=== PATIENT | female | born 1945 | race Two or more races ===

== ENCOUNTER → 2020-08-01 09:55 | Outpatient (BNVA) | payer MEDICARE, SELFPAY | PROVIDERS: PCP Internal Medicine; Referring Provider Internal Medicine; Visit Provider Hospitalist | DX: J98.11 Atelectasis (principal); J45.909 Unspecified asthma, uncomplicated; Z79.899 Other long term (current) drug therapy | CPT/HCPCS: 99214 ==

== ENCOUNTER → 2020-09-09 09:37 | Outpatient (BNVA) | payer MEDICARE, SELFPAY | PROVIDERS: PCP Internal Medicine; Visit Provider Surgery Vascular Surgery | DX: I83.12 Varicose veins of left lower extremity with inflammation (principal) | CPT/HCPCS: 99202 ==

== ENCOUNTER 2020-09-17 07:36 | Outpatient (REF) | payer MEDICARE, SELFPAY ==
--- NOTE | 2020-09-17 07:41 | US_ITS ---
EXAMINATION: BILATERAL LOWER EXTREMITY VENOUS ULTRASOUND (Reflux Exam) CLINICAL INDICATION: This is a 75-year-old female with venous insufficiency. Venous reflux. Varicose veins with inflammation. COMPARISON: None. TECHNIQUE: Color flow triplex imaging and compression Doppler was performed to evaluate both the deep and the superficial systems bilaterally. To evaluate the superficial system, the examination was performed in the upright position. Color-flow Doppler ultrasound and compression ultrasound were utilized. In addition, maneuvers were utilized to demonstrate reflux. FINDINGS: 1. DEEP VENOUS ULTRASOUND OF THE RIGHT LOWER EXTREMITY: Common Femoral Vein: Compressible, normal respiratory variation and augmented flow. Femoral vein: Compressible, normal color flow and augmentation. Popliteal Vein: Compressible, normal augmentation. Deep Reflux: There is no evidence of reflux in the deep system in either the common femoral vein or the popliteal vein. . There is no evidence of a Rosa's cyst. 2. SUPERFICIAL ULTRASOUND WITH DOPPLER OF RIGHT LOWER EXTREMITY GREAT SAPHENOUS VEIN: Saphenofemoral junction: 0.5 cm Mid thigh: 0.2 cm Above knee: 0.2 cm Below knee: 0.2 cm Mid calf: 0.2 cm Ankle: 0.2 cm GSV REFLUX: No evidence of reflux. DUPLICATED GREAT SAPHENOUS VEIN: None SMALL SAPHENOUS VEIN: Upper: 0.1 cm Lower: 0.2 cm SSV REFLUX: No evidence of reflux. VEIN OF GIACOMINI: None Imaged. 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 VARICOSITIES: None Imaged 3. DEEP VENOUS ULTRASOUND OF THE LEFT LOWER EXTREMITY: Common Femoral Vein: Compressible, normal respiratory variation and augmented flow. Femoral vein: Compressible, normal color flow and augmentation. Popliteal Vein: Compressible, normal augmentation. Deep Reflux: There is no evidence of reflux in the deep system in either the common femoral vein or the popliteal vein. There is no evidence of a Rosa's cyst. 4. SUPERFICIAL ULTRASOUND WITH DOPPLER OF LEFT LOWER EXTREMITY GREAT SAPHENOUS VEIN: Saphenofemoral junction: 0.6 cm Mid thigh: 0.2 cm Above knee: 0.2 cm Below knee: 0.1 cm Mid calf: 0.1 cm Ankle: 0.2 cm GSV REFLUX: No evidence of reflux. DUPLICATED GREAT SAPHENOUS VEIN: There is a duplicated lateral great saphenous vein which measures 0.3 cm at the saphenofemoral junction without reflux. SMALL SAPHENOUS VEIN: Upper: 0.2 cm Lower: 0.1 cm SSV REFLUX: No evidence of reflux. VEIN OF GIACOMINI: None Imaged. PERFORATORS: None Imaged VARICOSITIES: None Imaged US/US venous duplex LE BI IMPRESSION: 1. There are bilateral patent great saphenous veins and small saphenous veins, respectively without evidence of venous insufficiency.
== END 2020-09-17 07:37 | disposition home or self-care (01) ==
LOC: HO.US 07:36
PROVIDERS: Visit Provider Surgery Vascular Surgery
DX: I83.893 Varicose veins of bilateral lower extremities with other complications (principal); I83.12 Varicose veins of left lower extremity with inflammation
CPT/HCPCS: 93970

== ENCOUNTER → 2020-10-07 09:09 | Outpatient (BNVA) | payer MEDICARE, SELFPAY | PROVIDERS: PCP Internal Medicine; Referring Provider Internal Medicine; Visit Provider Surgery Vascular Surgery | DX: M79.605 Pain in left leg (principal); M79.604 Pain in right leg; M19.90 Unspecified osteoarthritis, unspecified site | CPT/HCPCS: 99212 ==

== ENCOUNTER → 2021-01-29 09:55 | Outpatient (BNVA) | payer MEDICARE, SELFPAY | PROVIDERS: PCP Internal Medicine; Visit Provider Hospitalist | DX: J45.30 Mild persistent asthma, uncomplicated (principal); J30.9 Allergic rhinitis, unspecified; J98.11 Atelectasis | CPT/HCPCS: 99212 ==

== ENCOUNTER → 2021-03-17 10:19 | Outpatient (BNVA) | payer MEDICARE, SELFPAY | PROVIDERS: PCP Internal Medicine; Visit Provider Surgery Vascular Surgery | DX: I73.9 Peripheral vascular disease, unspecified (principal) | CPT/HCPCS: 99212 ==

== ENCOUNTER 2021-03-30 09:48 | Outpatient (REF) | payer MEDICARE, SELFPAY ==
--- NOTE | ~2021-03-30 | US_ITS ---
EXAMINATION: COLOR-FLOW DUPLEX IMAGING OF THE BILATERAL LOWER EXTREMITY ARTERIAL SYSTEM. VELOCITY MEASUREMENTS THROUGHOUT THE FEMORAL ARTERIES WITH ANKLE-BRACHIAL PERIPHERAL ARTERIAL TESTING. Interventional Radiologist: Reji Lim M.D., F.S.I.R., F.A.C.R. CLINICAL INFORMATION: This is a 75-year-old female with bilateral peripheral vascular disease. RIGHT FEMORAL RUNOFF VELOCITIES: The right common femoral artery measures 198 cm/s and biphasic. The right profunda femoral artery is 167 cm/s and is biphasic. Right proximal superficial femoral artery measures 195 cm/s and biphasic. Mid superficial femoral artery is 254 cm/s and triphasic. Distal right superficial femoral artery measures 275 cm/s and is biphasic. Right popliteal velocity measures 97 cm/s and is abnormal. The posterior tibial artery velocity measures 125 cm/s and was monophasic. The right ankle-brachial index is 0.94. LEFT FEMORAL RUNOFF VELOCITIES: The left common femoral artery measures 178 cm/s and triphasic. The left profunda femoral artery is 113 cm/s and is biphasic. Left proximal superficial femoral artery measures 130 cm/s and biphasic. Mid superficial femoral artery is 301 cm/s and biphasic. Distal left superficial femoral artery measures 203 cm/s and is biphasic. Left popliteal velocity measures 111 cm/s and is triphasic. The posterior tibial artery velocity measures 109 cm/s and was biphasic. The left ankle-brachial index is 1.03. US/US MAYRA complete IMPRESSION: 1. There are elevated velocities in the mid and distal right superficial femoral artery with greater than 200 cm/s measured. This is suspicious for a hemodynamically significant stenosis. However, it appears to be compensated with a normal ankle-brachial index. 2. There are elevated velocities in the mid and distal left superficial femoral artery with greater than 200 cm/s measured. There is a 2-1 shift. This is suspicious for hemodynamically significant stenosis. However, it appears to be compensated with a normal ankle-brachial index.
--- NOTE | ~2021-03-30 | US_ITS ---
EXAMINATION: COLOR-FLOW DUPLEX IMAGING OF THE BILATERAL LOWER EXTREMITY ARTERIAL SYSTEM. VELOCITY MEASUREMENTS THROUGHOUT THE FEMORAL ARTERIES WITH ANKLE-BRACHIAL PERIPHERAL ARTERIAL TESTING. Interventional Radiologist: Reji Lim M.D., F.S.I.R., F.A.C.R. CLINICAL INFORMATION: This is a 75-year-old female with bilateral peripheral vascular disease. RIGHT FEMORAL RUNOFF VELOCITIES: The right common femoral artery measures 198 cm/s and biphasic. The right profunda femoral artery is 167 cm/s and is biphasic. Right proximal superficial femoral artery measures 195 cm/s and biphasic. Mid superficial femoral artery is 254 cm/s and triphasic. Distal right superficial femoral artery measures 275 cm/s and is biphasic. Right popliteal velocity measures 97 cm/s and is abnormal. The posterior tibial artery velocity measures 125 cm/s and was monophasic. The right ankle-brachial index is 0.94. LEFT FEMORAL RUNOFF VELOCITIES: The left common femoral artery measures 178 cm/s and triphasic. The left profunda femoral artery is 113 cm/s and is biphasic. Left proximal superficial femoral artery measures 130 cm/s and biphasic. Mid superficial femoral artery is 301 cm/s and biphasic. Distal left superficial femoral artery measures 203 cm/s and is biphasic. Left popliteal velocity measures 111 cm/s and is triphasic. The posterior tibial artery velocity measures 109 cm/s and was biphasic. The left ankle-brachial index is 1.03. US/US arterial duplex LE BI IMPRESSION: 1. There are elevated velocities in the mid and distal right superficial femoral artery with greater than 200 cm/s measured. This is suspicious for a hemodynamically significant stenosis. However, it appears to be compensated with a normal ankle-brachial index. 2. There are elevated velocities in the mid and distal left superficial femoral artery with greater than 200 cm/s measured. There is a 2-1 shift. This is suspicious for hemodynamically significant stenosis. However, it appears to be compensated with a normal ankle-brachial index.
== END 2021-03-30 09:49 | disposition home or self-care (01) ==
LOC: HO.US 09:48
PROVIDERS: PCP Internal Medicine; Visit Provider Surgery Vascular Surgery
DX: I70.213 Atherosclerosis of native arteries of extremities with intermittent claudication, bilateral legs (principal)
CPT/HCPCS: 93923; 93925

== ENCOUNTER → 2021-04-07 10:14 | Outpatient (BNVA) | payer MEDICARE, SELFPAY | PROVIDERS: PCP Internal Medicine; Visit Provider Surgery Vascular Surgery | DX: M79.604 Pain in right leg (principal); M79.605 Pain in left leg | CPT/HCPCS: 99212 ==

== ENCOUNTER 2021-04-15 13:36 | Emergency (ER) | payer MEDICARE, SELFPAY ==
--- NOTE | ~2021-04-15 | XR_ITS ---
EXAMINATION: LEFT SHOULDER, RIGHT RIBS AND LEFT HUMERUS. CLINICAL INFORMATION: Fall. Pain. COMPARISON: None TECHNIQUE: Left shoulder 3 views. Left humerus 2 views. Right RIBS 3 views. FINDINGS: Left shoulder: There is loss of glenohumeral joint space with moderate periarticular spurring. No loose bodies or bony erosive changes seen. The left AC joint is normal. Left humerus: There is no visible acute fracture, dislocation or subluxation seen. The soft tissues are normal. Right RIBS: Multiple views of right ribs reveal no visible fracture or bony abnormality. The soft tissues are normal. XR/XR humerus LT IMPRESSION: Moderate degenerative changes left glenohumeral joint. No visible acute fracture or dislocation seen. Unremarkable left humerus. No acute fracture or periosteal thickening. There is no visible right rib fracture or bony abnormality. The soft tissues are normal.
--- NOTE | ~2021-04-15 | XR_ITS ---
EXAMINATION: LEFT SHOULDER, RIGHT RIBS AND LEFT HUMERUS. CLINICAL INFORMATION: Fall. Pain. COMPARISON: None TECHNIQUE: Left shoulder 3 views. Left humerus 2 views. Right RIBS 3 views. FINDINGS: Left shoulder: There is loss of glenohumeral joint space with moderate periarticular spurring. No loose bodies or bony erosive changes seen. The left AC joint is normal. Left humerus: There is no visible acute fracture, dislocation or subluxation seen. The soft tissues are normal. Right RIBS: Multiple views of right ribs reveal no visible fracture or bony abnormality. The soft tissues are normal. XR/XR shoulder LT min 2V IMPRESSION: Moderate degenerative changes left glenohumeral joint. No visible acute fracture or dislocation seen. Unremarkable left humerus. No acute fracture or periosteal thickening. There is no visible right rib fracture or bony abnormality. The soft tissues are normal.
--- NOTE | ~2021-04-15 | XR_ITS ---
EXAMINATION: LEFT SHOULDER, RIGHT RIBS AND LEFT HUMERUS. CLINICAL INFORMATION: Fall. Pain. COMPARISON: None TECHNIQUE: Left shoulder 3 views. Left humerus 2 views. Right RIBS 3 views. FINDINGS: Left shoulder: There is loss of glenohumeral joint space with moderate periarticular spurring. No loose bodies or bony erosive changes seen. The left AC joint is normal. Left humerus: There is no visible acute fracture, dislocation or subluxation seen. The soft tissues are normal. Right RIBS: Multiple views of right ribs reveal no visible fracture or bony abnormality. The soft tissues are normal. XR/XR ribs RT 2V IMPRESSION: Moderate degenerative changes left glenohumeral joint. No visible acute fracture or dislocation seen. Unremarkable left humerus. No acute fracture or periosteal thickening. There is no visible right rib fracture or bony abnormality. The soft tissues are normal.
[2021-04-15 15:04] VITALS: BP 220/100; PULSE 80; RESP 16; TEMP 36.6; O2SAT 97; BMI 34.7
[2021-04-15] MEDS: Cyclobenzaprine HCl 5 MG TABLET PO (16:17)
[2021-04-15] MEDS: traMADoL HCL 50 MG TABLET PO (16:18)
[2021-04-15] MEDS: Ketorolac Tromethamine 30 MG/ML VIAL IM (16:20)
[2021-04-15] MEDS: Lidocaine 4 % Patch ADH..PATCH 1 PATCH TRANSDERMA (16:21)
--- NOTE | 2021-04-15 16:47 | ED.EXTPRO ---
HPI - Extremity Problem General Chief complaint: Extremity Injury, Upper Stated complaint: pt fell down the stairs, unable to lift up arm Time Seen by Provider: 04/15/21 15:11 Source: patient and family Mode of arrival: ambulatory History of Present Illness HPI Narrative: 75-year-old female with a past medical history of asthma, allergic rhinitis, presenting to the ED complaining of right-sided rib and left shoulder pain S/P mechanical trip on stairs last night. Admits had right wrist surgery a few weeks ago and miss stepped on last stair in basement and in trying to avoid putting weight on right wrist tripped into wall on right side and twisted, denies direct trauma or falling to ground, denies head trauma or LOC. Denies taking anticoagulation. Denies numbness, tingling, weakness, urinary incontinence /retention, or symptoms prior to fall Pain worsened on movement Related Data Home Medications Medication Instructions Recorded Confirmed cetirizine 10 mg tablet 10 mg PO DAILY 07/16/20 01/29/21 hydrochlorothiazide 25 mg tablet 25 mg PO DAILY 07/16/20 01/29/21 inhalational spacing device #1 ea 07/16/20 01/29/21 levothyroxine 25 mcg tablet 25 mcg PO DAILY 07/16/20 01/29/21 losartan 100 mg tablet 100 mg PO DAILY 07/16/20 01/29/21 methotrexate sodium 2.5 mg tablet 15 mg PO QWEEK 07/16/20 01/29/21 montelukast 10 mg tablet 10 mg PO BEDTIME 07/16/20 01/29/21 omeprazole 20 mg capsule,delayed mg PO 07/16/20 01/29/21 release acetaminophen 650 mg 650 mg PO Q12H 08/01/20 01/29/21 tablet,extended release albuterol sulfate 90 mcg/actuation INHALATION 08/01/20 01/29/21 aerosol inhaler biotin 5,000 mcg disintegrating 10,000 mcg PO DAILY 08/01/20 01/29/21 tablet fluticasone propionate 50 INTRANASAL 08/01/20 01/29/21 mcg/actuation nasal spray,suspension folic acid 1 mg tablet 1 mg PO DAILY 08/01/20 01/29/21 furosemide 20 mg tablet 20 mg PO DAILY 08/01/20 08/01/20 gabapentin 300 mg capsule mg PO 08/01/20 01/29/21 atorvastatin 20 mg tablet 20 mg PO DAILY 10/07/20 01/29/21 prednisone 5 mg tablet mg PO 10/07/20 01/29/21 tiotropium bromide 18 mcg capsule 1 cap INHALATION DAILY 01/29/21 01/29/21 with inhalation device Previous Rx's Medication Instructions Recorded famotidine 40 mg tablet 40 mg PO DAILY #90 tab 02/03/21 cyclobenzaprine 5 mg PO Q8H PRN 5 Days #14 tab 04/15/21 lidocaine [Lidoderm] 1 patch TOPICAL DAILY PRN #30 ea 04/15/21 MDD remove after 12 hours naproxen 500 mg PO BID PRN 10 Days #20 tab 04/15/21 tramadol 50 mg PO Q8H PRN 3 Days #9 tab 04/15/21 Allergies Allergy/AdvReac Type Severity Reaction Status Date / Time acetaminophen [From PERCOCET] Allergy Mild RASH Verified 04/07/21 10:15 codeine [CODEINE] Allergy Mild Rash Verified 04/07/21 10:15 morphine [MORPHINE] Allergy Mild Hallucinati Verified 04/07/21 10:15 ons oxycodone [Percocet] Allergy Mild Hives Verified 04/07/21 10:15 Review of Systems Review of Systems: Constitutional: No Fever, No Chills Cardiovascular: +chest wall pain, No SOB Gastrointestinal: No Abdominal pain Genitourinary: No Urinary Incontinence/retention, No Flank Pain Musculoskeletal: + joint pain, No Myalgias, No Joint Swelling Skin: No Skin Lesions, No rash Neuro: No Weakness, No Numbness, No Paresthesias, no headache, no lightheadedness Yes all other systems are reviewed and are negative [facility] Past Medical History Attestation statement: The following information was validated with the patient. Medical History Asthma Atelectasis of left lung Chronic allergic rhinitis Family History Family History Father Lung cancer Mother Throat cancer Social History Social History Years Smoked: 4 years Advance Directives: No Advance Directives Information Provided: Yes Physical Exam Vital Signs: Vital Signs: Last Vital Signs Temp 98 F 04/15/21 15:04 Pulse 80 06/30/21 15:04 Resp 16 04/15/21 15:04 BP 220/100 H 04/15/21 15:04 Pulse Ox 97 04/15/21 15:04 Body Mass Index 34.7 Const: Other: in pain General: cooperative and healthy appearing Orientation/consciousness: patient oriented x3 Limitations: no limitations HENMT: Head: Yes normal to inspection Ears: hearing grossly normal bilaterally General nose exam: Normal external nose present Face and sinus: Yes normal facial exam Eyes: General: appearance normal, both eyes and all related structures EOM: EOMs intact bilaterally Neck: Neck: Yes normal visual inspection Chest: Other: + diffuse tenderness to palpation over right chest wall. No crepitus. No ecchymosis or erythema Chest palpation & inspection: no crepitus Resp: Effort & Inspection: normal respiratory effort, not labored and no stridor Cardio: Rate: regular rate Peripheral pulses: dorsalis pedis present GI: Inspection: Yes normal to inspection Palpation (GI): Soft to palpation, nontender, no guarding and not rigid Back/Spine/Pelvis: Other: no midline thoracic/ lumbar spinous tenderness or step-offs Skin: Rashes: no rashes Wounds: no wounds Neuro: General: patient oriented x3, gait normal, tone normal, moves all extremities and no focal motor deficits Gait exam (Neuro): Normal gait present Extrem: Other: left shoulder with tenderness to palpation and decreased ROM secondary to pain. Neurovascularly intact distally. Proximal humerus tender to palpation Left elbow /wrist/hand nontender General: Yes normal to inspection Course Course Course Narrative: XR ribs RT 2V IMPRESSION: Moderate degenerative changes left glenohumeral joint. No visible acute fracture or dislocation seen. Unremarkable left humerus. No acute fracture or periosteal thickening. There is no visible right rib fracture or bony abnormality. The soft tissues are normal. >> results discussed with patient and family including recent signs and symptoms and strict return precautions, they verbalized understanding feel safe for discharge home MDM - Extremity (Nontraumatic) MDM Narrative Medical decision making narrative: 75-year-old female with a past medical history of asthma, allergic rhinitis, presenting to the ED complaining of right-sided rib and left shoulder pain S/P mechanical trip on stairs last night. On exam in pain, hypertensive likely from pain, physical exam as above. concern for rib fracture/contusion vs shoulder fracture vs dislocation vs MSK pain /strain plan: X-rays, pain management Discharge Plan Discharge Clinical Impression: Arm pain, left Contusion of rib Qualifiers: Encounter type: initial encounter Laterality: right Qualified Code(s): S20.211A - Contusion of right front wall of thorax, initial encounter Patient Disposition: Home, Self-Care Instructions: Musculoskeletal Pain (ED) Additional Instructions: your x-ray did not show any fractures /breaks Your pain is likely musculoskeletal Flexeril is a muscle relaxer, take at night as it makes you drowsy, do not drive, drink alcohol, or operate machinery while taking it Naproxen as an anti-inflammatory / pain medication, take with food Tramadol as an opiate pain medication, take only when pain is severe for the next 3 days Lidoderm patches are numbing patches, apply to painful area In addition take Tylenol at home If symptoms persist or worsen, pain becomes unbearable, you developed urinary retention or incontinence, or weakness return to the ED You need to follow-up with her doctor amador radiograf?a no mostr? fracturas / roturas Es probable que amador dolor sea musculoesquel?lou Flexeril es un relajante muscular, t?gilmore por la noche ya que le produce somnolencia, no conduzca, no meredith alcohol ni utilice maquinaria mientras lo kevin. Naproxeno bryson medicamento antiinflamatorio / analg?sico, melina con alimentos. Tramadol bryson analg?sico opi?chairperson anesthesiology, t?gilmore solo cuando el dolor sea intenso gisel los pr?ximos 3 d?as Los parches de Lidoderm son parches que adormecen, se aplican al ?josep dolorida Adem?s, tome Tylenol en casa. Si los s?ntomas persisten o empeoran, el dolor se vuelve insoportable, desarroll? retenci?n urinaria o incontinencia o debilidad, regrese al servicio de urgencias Necesitas hacer un seguimiento con amador m?dico. Prescriptions: New tramadol 50 mg tablet 50 mg PO Q8H PRN (Reason: pain, severe) 3 Days Qty: 9 RF: 0 lidocaine [Lidoderm] 5 % adhesive patch,medicated 1 patch topical DAILY MDD remove after 12 hours PRN (Reason: pain) Qty: 30 RF: 0 naproxen 500 mg tablet 500 mg PO BID PRN (Reason: pain) 10 Days Qty: 20 RF: 0 cyclobenzaprine 5 mg tablet 5 mg PO Q8H PRN (Reason: pain (scale score 7-10)) 5 Days Qty: 14 RF: 0 No Action famotidine 40 mg tablet 40 mg PO DAILY Qty: 90 RF: 2 fluticasone propionate 50 mcg/actuation spray,suspension intranasal RF: 0 folic acid 1 mg tablet 1 mg PO DAILY RF: 0 gabapentin 300 mg capsule PO RF: 0 albuterol sulfate 90 mcg/actuation HFA aerosol inhaler inhalation RF: 0 furosemide 20 mg tablet 20 mg PO DAILY RF: 0 biotin 5,000 mcg tablet,disintegrating 10,000 mcg PO DAILY RF: 0 acetaminophen [Tylenol Arthritis Pain] 650 mg tablet extended release 650 mg PO Q12H RF: 0 atorvastatin 20 mg tablet 20 mg PO DAILY RF: 0 prednisone 5 mg tablet PO RF: 0 omeprazole 20 mg capsule,delayed release(DR/EC) PO RF: 0 losartan 100 mg tablet 100 mg PO DAILY RF: 0 hydrochlorothiazide 25 mg tablet 25 mg PO DAILY RF: 0 cetirizine 10 mg tablet 10 mg PO DAILY RF: 0 methotrexate sodium 2.5 mg tablet 15 mg PO QWEEK RF: 0 montelukast 10 mg tablet 10 mg PO BEDTIME RF: 0 (DME) Catie Knox [facility] Spacer See Rx Instructions ea .ROUTE DIRECTED Qty: 1 RF: 0 levothyroxine 25 mcg tablet 25 mcg PO DAILY RF: 0 tiotropium bromide 18 mcg capsule, w/inhalation device 1 cap inhalation DAILY RF: 0 Referrals: Jeni Garcia MD [Primary Care Provider] - 2 days Interventions: ED Discharge Assessment Last Done: 04/15/21 17:07 Discharge Date/Time: 04/15/21 17:09 Print Language: [place]
== END 2021-04-15 17:09 | disposition home or self-care (01) ==
PROVIDERS: Emergency Provider Emergency Medicine; PCP Internal Medicine
DX: S20.211A Contusion of right front wall of thorax, initial encounter (principal); M25.512 Pain in left shoulder; W10.9XXA Fall (on) (from) unspecified stairs and steps, initial encounter; Y93.9 Activity, unspecified; Y92.008 Other place in unspecified non-institutional (private) residence as the place of occurrence of the external cause; Y99.9 Unspecified external cause status
CPT/HCPCS: 71100; 73030; 73060; 96372; 99283; 99284; J1885

== ENCOUNTER 2021-04-28 14:28 | Outpatient (REF) | payer MEDICARE, SELFPAY ==
--- NOTE | ~2021-04-28 | XR_ITS ---
EXAMINATION: XR RIBS, RIGHT CLINICAL INFORMATION: Chest pain. Right rib pain. COMPARISON: None TECHNIQUE: 3 views of the right ribs were obtained. FINDINGS: The lungs are well-expanded and clear. There is platelike atelectasis in the lingula. Heart size and pulmonary vascularity is normal. There is mild spondylosis dorsal spine. No lytic process seen. Multiple views of right ribs reveal no visible fracture or bony abnormality. The soft tissues are normal. XR/XR ribs RT min 3V w CXR1V IMPRESSION: Lingular atelectasis. Rest of the lungs are clear. There is mild spondylosis dorsal spine.
== END 2021-04-28 14:29 | disposition home or self-care (01) ==
LOC: HO.XRAY 14:28
PROVIDERS: PCP Internal Medicine; Visit Provider Hospitalist
DX: J45.30 Mild persistent asthma, uncomplicated (principal); J31.0 Chronic rhinitis; J98.11 Atelectasis; R07.9 Chest pain, unspecified; R09.89 Other specified symptoms and signs involving the circulatory and respiratory systems; M06.9 Rheumatoid arthritis, unspecified; Z79.899 Other long term (current) drug therapy
CPT/HCPCS: 71101; 99212

== ENCOUNTER 2021-05-08 19:15 | Emergency (ER) | payer MEDICARE, SELFPAY ==
--- NOTE | ~2021-05-08 | XR_ITS ---
EXAMINATION: XR SPINE, THORACIC XR SPINE, LUMBOSACRAL CLINICAL INFORMATION: Pain COMPARISON: Chest radiograph 05/19/2020. Lumbar spine radiograph 07/28/2017 TECHNIQUE: 3 views of the thoracic spine and 3 views of the lumbosacral spine submitted. FINDINGS: Thoracic spine: Mild right convex curvature of the thoracic spine. Moderate osteopenia. No acute compression fracture is seen. Spondylosis is visualized at multiple levels in the thoracic spine. Kyphoplasty cement is present at T12 vertebral body with stable loss of vertebral height. Lumbosacral spine: Mild left convex scoliosis. Prior laminectomy involving L3 and L4 vertebral bodies. Vertebral body height is maintained. Mild disc space narrowing at L3-L4. Moderate spondylosis in the mid to lower lumbar spine and associated facet arthropathy. Sacroiliac joints unremarkable. Vascular calcification is noted in the abdominal aorta. XR/XR thoracic spine 3V IMPRESSION: Mild scoliosis. Osteopenia in the thoracic spine with kyphoplasty at the T12 level. No new compression fracture. Degenerative and postoperative changes in the lumbar spine without acute compression fracture.
--- NOTE | ~2021-05-08 | XR_ITS ---
EXAMINATION: XR SPINE, THORACIC XR SPINE, LUMBOSACRAL CLINICAL INFORMATION: Pain COMPARISON: Chest radiograph 05/19/2020. Lumbar spine radiograph 07/28/2017 TECHNIQUE: 3 views of the thoracic spine and 3 views of the lumbosacral spine submitted. FINDINGS: Thoracic spine: Mild right convex curvature of the thoracic spine. Moderate osteopenia. No acute compression fracture is seen. Spondylosis is visualized at multiple levels in the thoracic spine. Kyphoplasty cement is present at T12 vertebral body with stable loss of vertebral height. Lumbosacral spine: Mild left convex scoliosis. Prior laminectomy involving L3 and L4 vertebral bodies. Vertebral body height is maintained. Mild disc space narrowing at L3-L4. Moderate spondylosis in the mid to lower lumbar spine and associated facet arthropathy. Sacroiliac joints unremarkable. Vascular calcification is noted in the abdominal aorta. XR/XR lumbar spine 2-3V IMPRESSION: Mild scoliosis. Osteopenia in the thoracic spine with kyphoplasty at the T12 level. No new compression fracture. Degenerative and postoperative changes in the lumbar spine without acute compression fracture.
[2021-05-08 20:00] VITALS: BP 159/59; PULSE 77; RESP 18; TEMP 36.8; O2SAT 97; BMI 34.7
--- NOTE | 2021-05-08 20:19 | ED_ITS ---
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 Mode of arrival: ambulatory Limitations: no limitations History of Present Illness complaint: R rib and back pain Onset (ago): week(s) (4) Location: chest (right rib) and back Radiation: back Severity: moderate Quality: stabbing Pain Consistency: constant Relieving factors: none Exacerbating factors: movement and other (coughing, palpation, breathing) Associated symptoms: denies other symptoms Treatments prior to arrival: other (has seen doctor and was negative for xrays oral steroids, abx and pain medications) Related Data Home Medications Medication Instructions Recorded Confirmed cetirizine 10 mg tablet 10 mg PO DAILY 07/16/20 04/28/21 hydrochlorothiazide 25 mg tablet 25 mg PO DAILY 07/16/20 04/28/21 inhalational spacing device #1 ea 07/16/20 01/29/21 levothyroxine 25 mcg tablet 25 mcg PO DAILY 07/16/20 04/28/21 losartan 100 mg tablet 100 mg PO DAILY 07/16/20 04/28/21 methotrexate sodium 2.5 mg tablet 15 mg PO QWEEK 07/16/20 04/28/21 omeprazole 20 mg capsule,delayed mg PO 07/16/20 04/28/21 release acetaminophen 650 mg 650 mg PO Q12H 08/01/20 04/28/21 tablet,extended release albuterol sulfate 90 mcg/actuation INHALATION 08/01/20 04/28/21 aerosol inhaler biotin 5,000 mcg disintegrating 10,000 mcg PO DAILY 08/01/20 04/28/21 tablet folic acid 1 mg tablet 1 mg PO DAILY 08/01/20 04/28/21 furosemide 20 mg tablet 20 mg PO DAILY 08/01/20 04/28/21 gabapentin 300 mg capsule mg PO 08/01/20 04/28/21 atorvastatin 20 mg tablet 20 mg PO DAILY 10/07/20 04/28/21 prednisone 5 mg tablet mg PO 10/07/20 01/29/21 tiotropium bromide 18 mcg capsule 1 cap INHALATION DAILY 01/29/21 04/28/21 with inhalation device Previous Rx's Medication Instructions Recorded famotidine 40 mg tablet 40 mg PO DAILY #90 tab 02/03/21 cyclobenzaprine 5 mg PO Q8H PRN 5 Days #14 tab 04/15/21 lidocaine [Lidoderm] 1 patch TOPICAL DAILY PRN #30 ea 04/15/21 MDD remove after 12 hours amoxicillin 875 mg-potassium 1 tab PO BID 10 Days #20 tab 04/28/21 clavulanate 125 mg tablet naproxen 500 mg tablet 500 mg PO BID PRN 10 Days #20 tab 04/28/21 tramadol 50 mg tablet 50 mg PO Q8H PRN 5 Days #15 tab 04/28/21 fluticasone propionate 50 2 spray INTRANASAL DAILY #48 ml 05/01/21 mcg/actuation nasal spray,suspension montelukast 10 mg tablet 10 mg PO QPM #90 tab 05/01/21 lidocaine 1 patch TOPICAL DAILY PRN #10 ea 05/08/21 tramadol 50 mg PO TID PRN #14 tab 05/08/21 Allergies Allergy/AdvReac Type Severity Reaction Status Date / Time acetaminophen [From PERCOCET] Allergy Mild RASH Verified 04/28/21 14:40 codeine [CODEINE] Allergy Mild Rash Verified 04/28/21 14:40 morphine [MORPHINE] Allergy Mild Hallucinati Verified 04/28/21 14:40 ons oxycodone [Percocet] Allergy Mild Hives Verified 04/28/21 14:40 Review of Systems Review of Systems: Constitutional : No Weight loss, No Fever, No Chills ENT/Mouth : No sore throat, No Rhinorrhea Eyes: No Eye Pain, No Swelling Cardiovascular : pos Chest Pain, no SOB, no Dyspnea on Exertion, No Orthopnea, No Edema, No Palpitations Respiratory : No Cough, No Sputum Gastrointestinal : no Nausea, No Vomiting, No Diarrhea, No abdominal Pain, No Hematochezia, No Melena Genitourinary : No Dysuria, No Urinary Frequency Musculoskeletal : No joint pain, No Myalgias, No Joint Swelling, pos back pain Skin : No Skin Lesions, No rash Neuro : No Weakness, No Numbness, No Dizziness, No Headache Psych : No Anxiety/Panic, No Depression Heme/Lymph: No Bruising, No Lymphadenopathy Endocrine : No Polyuria, No Polydipsia All other systems reviewed and are negative PMFSH Past Medical History Attestation statement: The following information was validated with the patient. Medical History Asthma Atelectasis of left lung Chest pain Chronic allergic rhinitis Family History Family History Father Lung cancer Mother Throat cancer Social History Social History Years Smoked: 4 years Advance Directives: No Advance Directives Information Provided: No Physical Exam Vital Signs: Vital Signs: Last Vital Signs Temp 98.3 F 05/08/21 20:00 Pulse 77 05/08/21 20:00 Resp 18 05/08/21 20:00 BP 159/59 H 05/08/21 20:00 Pulse Ox 97 05/08/21 20:00 Body Mass Index 34.7 Appearance: Alert. Oriented X3. No acute distress. Eyes: Pupils equal, round and reactive to light. ENT: Pharynx normal. Neck: Normal inspection. Neck supple. CVS: Normal heart rate and rhythm. Pulses normal. ttp along anterior R ribs Respiratory: No respiratory distress. Breath sounds normal. Abdomen: Soft and nontender. Back: ttp along R posterior thoracic area under the scapula Skin: Skin warm and dry. Normal skin color. Normal skin turgor. Extremities: No lower extremity edema. No calf ttp Neuro: Oriented X 3. No motor deficit. No sensory deficit. Course Course Course Narrative: no acute findings, will refer to PCP Medical Decision Making MDM Narrative Medical decision making narrative: 75 yo femalewith fall one month ago since then c/o R posterior rib pain with 2 negative xrays it seems radiating from her thoracic spine she is NV intact, given duration and pain since that fall doubt ACS/PE and it is very reproduceable will give PO pain medications and obtain xrays of spine Discharge Plan Discharge Clinical Impression: Pain in rib Patient Disposition: Home, Self-Care Instructions: Chest Wall Pain (ED) Additional Instructions: return to ED for any worsening symptoms or concerns Prescriptions: New tramadol 50 mg tablet 50 mg PO TID PRN (Reason: pain) Qty: 14 RF: 0 lidocaine 4 % adhesive patch,medicated 1 patch topical DAILY PRN (Reason: pain) Qty: 10 RF: 0 No Action famotidine 40 mg tablet 40 mg PO DAILY Qty: 90 RF: 2 fluticasone propionate 50 mcg/actuation spray,suspension 2 spray intranasal DAILY Qty: 48 RF: 3 montelukast 10 mg tablet 10 mg PO QPM Qty: 90 RF: 3 lidocaine [Lidoderm] 5 % adhesive patch,medicated 1 patch topical DAILY MDD remove after 12 hours PRN (Reason: pain) Qty: 30 RF: 0 cyclobenzaprine 5 mg tablet 5 mg PO Q8H PRN (Reason: pain (scale score 7-10)) 5 Days Qty: 14 RF: 0 folic acid 1 mg tablet 1 mg PO DAILY RF: 0 gabapentin 300 mg capsule PO RF: 0 albuterol sulfate 90 mcg/actuation HFA aerosol inhaler inhalation RF: 0 furosemide 20 mg tablet 20 mg PO DAILY RF: 0 biotin 5,000 mcg tablet,disintegrating 10,000 mcg PO DAILY RF: 0 acetaminophen [Tylenol Arthritis Pain] 650 mg tablet extended release 650 mg PO Q12H RF: 0 atorvastatin 20 mg tablet 20 mg PO DAILY RF: 0 prednisone 5 mg tablet PO RF: 0 naproxen 500 mg tablet 500 mg PO BID PRN (Reason: pain) 10 Days Qty: 20 RF: 0 tramadol 50 mg tablet 50 mg PO Q8H PRN (Reason: pain, severe) 5 Days Qty: 15 RF: 0 amoxicillin-pot clavulanate [Augmentin] 875-125 mg tablet 1 tab PO BID 10 Days Qty: 20 RF: 0 omeprazole 20 mg capsule,delayed release(DR/EC) PO RF: 0 losartan 100 mg tablet 100 mg PO DAILY RF: 0 hydrochlorothiazide 25 mg tablet 25 mg PO DAILY RF: 0 cetirizine 10 mg tablet 10 mg PO DAILY RF: 0 methotrexate sodium 2.5 mg tablet 15 mg PO QWEEK RF: 0 (DME) [facility] See Rx Instructions ea .ROUTE DIRECTED Qty: 1 RF: 0 levothyroxine 25 mcg tablet 25 mcg PO DAILY RF: 0 tiotropium bromide 18 mcg capsule, w/inhalation device 1 cap inhalation DAILY RF: 0 Referrals: Jeni Garcia MD [Primary Care Provider] - 3 days Print Language: Divehi
[2021-05-08] MEDS: Lidocaine 4 % Patch ADH..PATCH 1 PATCH TRANSDERMA (20:47)
[2021-05-08] MEDS: Cyclobenzaprine HCl 10 MG TABLET PO (20:48)
== END 2021-05-08 21:51 | disposition home or self-care (01) ==
PROVIDERS: Emergency Provider Emergency Medicine; PCP Internal Medicine
DX: R07.81 Pleurodynia (principal); R10.9 Unspecified abdominal pain; M54.6 Pain in thoracic spine; M54.5 Low back pain; Z79.899 Other long term (current) drug therapy
CPT/HCPCS: 72072; 72100; 99283

== ENCOUNTER 2021-05-26 13:25 | Outpatient (REF) | payer MEDICARE, SELFPAY ==
--- NOTE | ~2021-05-26 | MM_ITS ---
EXAMINATION: MM SCREENING DIGITAL BREAST TOMOSYNTHESIS, BILATERAL CLINICAL INFORMATION: Screening. Asymptomatic. The lifetime risk of breast cancer based on the Tyrer-Cuzick Model is 2%. COMPARISON: Mammography: 12/14/2019, 07/04/2018, 10/23/2016 TECHNIQUE: Digital breast tomosynthesis is performed in both the craniocaudal and mediolateral oblique views along with computer-aided detection (CAD). Synthesized 2D images are generated from the tomosynthesis. FINDINGS: There are scattered areas of fibroglandular density (ACR BI-RADS breast composition Category b). There are no significant masses, abnormal calcifications, or other abnormalities. There is stable intramammary node posterior upper outer right breast. No developing density. The axilla are unremarkable. No significant changes from prior exams. MM/MM tomosynthesis screening BI IMPRESSION: No mammographic evidence of malignancy. ASSESSMENT: BI-RADS 1: Negative RECOMMENDATION: Routine annual mammography screening. This patient's information was entered into a reminder system with a target due date for their next mammogram.
== END 2021-05-26 13:26 | disposition home or self-care (01) ==
LOC: HO.MAMMO 13:25
PROVIDERS: Visit Provider Internal Medicine
DX: Z12.31 Encounter for screening mammogram for malignant neoplasm of breast (principal)
CPT/HCPCS: 77063; 77067

== ENCOUNTER 2021-05-27 12:51 | Outpatient (REF) | payer MEDICARE, SELFPAY ==
--- NOTE | ~2021-05-27 | CT_ITS ---
EXAMINATION: CT CHEST WITHOUT CONTRAST CLINICAL INFORMATION: Pleurodynia. COMPARISON: CT chest 01/08/2020 TECHNIQUE: Multidetector volumetric CT imaging of the chest was done. Axial MIP volume rendering provided. Sagittal and coronal reformatted images were obtained. This CT examination was performed using dose optimization techniques as appropriate, variously including the following: *Automated exposure control *Adjustment of mA and/or kV according to patient size (this includes techniques or standardized protocols for targeted exams where dose is matched to indication/reason for exam; i.e. extremities or head) *Use of iterative reconstruction technique DLP: 180 mGy-cm FINDINGS: CARDIAC CATH LAB TECHNOLOGIST: Unremarkable. LUNGS: The lungs are well expanded and clear of acute pneumonic process. There are mild atelectatic changes left lower lobe, lingula and mild thickening of left minor fissure. No pulmonary nodule, mass or consolidation seen. MEDIASTINUM: The thyroid lobes are symmetrical and normal. The central trachea and the bronchi are widely patent. The heart size and the great vessels are normal caliber. There are small 8 mm and less lymph nodes in the pretracheal space, aortic window and subcarinal space. PLEURA: There is no pleural effusion. No pleural mass or thickening. AXILLA: There are small shotty bilateral axillary lymph nodes. The largest right axillary lymph node measures 9 mm. UPPER ABDOMEN: The liver is diffusely attenuated without focal lesion. There are radiopaque multiple gallstones without wall thickening. The spleen, pancreas and bilateral adrenal glands are unremarkable. OSSEOUS STRUCTURES: There is an augmented T12 vertebra for compression fracture. No additional new fracture or lytic process seen. CT/CT chest wo con IMPRESSION: Lingular and left lower lobe atelectatic changes. No acute consolidation, mass or pulmonary nodules seen. Gallstones. Old T12 compression fracture with cement augmentation.
== END 2021-05-27 12:52 | disposition home or self-care (01) ==
LOC: HO.CT 12:51
PROVIDERS: Visit Provider Family Medicine
DX: R07.81 Pleurodynia (principal); M85.80 Other specified disorders of bone density and structure, unspecified site
CPT/HCPCS: 71250

== ENCOUNTER 2021-06-29 08:29 | Outpatient (REF) | payer MEDICARE, SELFPAY ==
--- NOTE | ~2021-06-29 | US_ITS ---
EXAMINATION: US ABDOMEN COMPLETE CLINICAL INFORMATION: Abdominal pain. Gallstone. COMPARISON: CT chest 05/27/2021. CT abdomen 09/25/2014. TECHNIQUE: Real-time imaging of the abdominal viscera. FINDINGS: PANCREAS: The head and body the pancreas is homogeneous in echotexture. The tail of the pancreas is not visualized. ABDOMINAL AORTA: The proximal, mid, and distal segments are normal in caliber. INFERIOR VENA CAVA: Visualized portions are normal. LIVER: The liver is normal in size. The liver contour is normal. There is diffuse increased liver echogenicity. No focal hepatic lesion. There is no intrahepatic biliary duct dilatation seen. GALLBLADDER: The gallbladder is physiologically distended. Multiple mobile gallstones are present. No evidence of gallbladder wall thickening or pericholecystic fluid. COMMON BILE DUCT: Normal in caliber measuring 0.6 cm in diameter. RIGHT KIDNEY: Normal. No hydronephrosis. No renal calculi or focal parenchymal lesions. The kidney measures 9.1 cm in maximum dimension. LEFT KIDNEY: Normal. No hydronephrosis. No renal calculi or focal parenchymal lesions. The kidney measures 9.0 cm in maximum dimension. SPLEEN: Normal. The spleen measures 7.8 cm in maximum dimension. FREE FLUID: None. US/US abdomen complete IMPRESSION: Diffuse hepatic steatosis without focal lesion. Gallstones without wall thickening. Rest of the abdominal ultrasound is unremarkable.
== END 2021-06-29 08:30 | disposition home or self-care (01) ==
LOC: HO.US 08:29
PROVIDERS: PCP Internal Medicine; Visit Provider Family Medicine
DX: R10.9 Unspecified abdominal pain (principal); K80.20 Calculus of gallbladder without cholecystitis without obstruction
CPT/HCPCS: 76700

== ENCOUNTER → 2021-07-02 13:48 | Outpatient (BNVA) | payer MEDICARE, SELFPAY | PROVIDERS: PCP Internal Medicine; Visit Provider Hospitalist | DX: J30.9 Allergic rhinitis, unspecified (principal); J98.11 Atelectasis; J45.30 Mild persistent asthma, uncomplicated; M79.89 Other specified soft tissue disorders | CPT/HCPCS: 99212 ==

== ENCOUNTER 2021-09-16 10:53 | Outpatient (REF) | payer MEDICARE, SELFPAY ==
--- NOTE | ~2021-09-16 | MM_ITS ---
EXAMINATION: BONE DENSITOMETRY CLINICAL INDICATION: Osteopenia. COMPARISON: Previous BD dated 03/09/2018 and baseline BD dated 03/11/2011. TECHNIQUE: Using a [employer] DXA System (software version: 13.1) manufactured by [employer], dual-energy x-ray absorptiometry was performed of the lumbar spine and left hip. The images are of good technical quality. Summary results are attached. FINDINGS: AP SPINE L1-L4: Current: BMD 0.947 g/cm2, Z-score -0.6, T-score -1.9, osteopenia, 0.9% decrease from previous, 0.7% increase from baseline (<5% change is not significant). Prior: BMD 0.956 g/cm2. Baseline: BMD 0.940 g/cm2. LEFT FEMUR, NECK: Current: BMD 0.722 g/cm2, Z-score -0.5, T-score -2.3, osteopenia. Prior: BMD 0.758 g/cm2. Baseline: BMD 0.774 g/cm2. LEFT FEMUR, TOTAL: Current: BMD 0.904 g/cm2, Z-score 0.8, T-score -0.8, normal, 2.9% decrease from previous, 2.7% decrease from baseline (<5% change is not significant). Prior: BMD 0.931 g/cm2. Baseline: BMD 0.929 g/cm2. IDENTIFIED RISK FACTORS: Early menopause, hysterectomy, rheumatoid arthritis, secondary osteoporosis, history of fracture (adult), height loss. HISTORY OF FRACTURE: Spine, wrist. MEDICATIONS: Calcium, vitamin D. MM/XR DEXA axial skeleton IMPRESSION: 1. DIAGNOSIS: Osteopenia based on the lowest T-score value of -2.3 in the femoral neck applying World Health Organization criteria. 2. 10-YEAR FRACTURE RISK PREDICTION, FRAX: Major osteoporotic fracture (clinical spine, forearm, hip or shoulder) 17.7%. Hip fracture 5.2%. 3. Treatment Recommendations: NOF guidelines recommend consideration for treatment in postmenopausal women and men age 50 and older presenting with the following: -A hip or vertebral (clinical or morphometric) fracture. -T-score less than or equal to -2.5 at the femoral neck or spine after appropriate evaluation to exclude secondary causes. -Low bone mass at the hip or spine and a 10-year fracture probability by FRAX of greater than or equal to 3% for hip fracture or greater than or equal to 20% for major osteoporotic fracture based on the [place] adapted WHO algorithm. 4. Other Recommendations: All treatment decisions require clinical judgment and consideration of individual patient factors, including patient preferences, comorbidities, previous drug use, risk factors not captured in the FRAX model (e.g. frailty, falls, vitamin D deficiency, increased bone turnover, interval significant decline in bone density) and possible under or overestimation of fracture risk by FRAX. Additional medical evaluation for secondary cause of low bone mineral density may be appropriate. FUTURE SCAN RECOMMENDATION: People with diagnosed cases of osteoporosis or at high risk for fracture should have regular bone mineral density tests. For patients eligible for Medicare, routine testing is allowed once every 2 years. The testing frequency can be increased to one year for patients who have rapidly progressing disease, those who are receiving or discontinuing medical therapy to restore bone mass, or have additional risk factors.
== END 2021-09-16 10:54 | disposition home or self-care (01) ==
LOC: HO.MAMMO 10:53
PROVIDERS: Visit Provider Internal Medicine
DX: Z13.820 Encounter for screening for osteoporosis (principal); M85.80 Other specified disorders of bone density and structure, unspecified site; Z78.0 Asymptomatic menopausal state; M05.9 Rheumatoid arthritis with rheumatoid factor, unspecified; Z87.81 Personal history of (healed) traumatic fracture; Z79.899 Other long term (current) drug therapy; Z90.710 Acquired absence of both cervix and uterus
CPT/HCPCS: 77080

== ENCOUNTER 2021-10-04 15:12 | Emergency (ER) | payer MEDICARE, SELFPAY ==
--- NOTE | ~2021-10-04 | XR_ITS ---
EXAMINATION: XR CHEST CLINICAL INFORMATION: Shortness of breath COMPARISON: X-ray 04/28/2021 TECHNIQUE: 2 views of the chest were obtained. FINDINGS: Stable cardiomediastinal silhouette. Aortic arch calcification. Linear atelectasis/scarring in the left mid lung and the left lower lung. No lobar consolidation otherwise. No effusion, edema. No pneumothorax is seen. Thoracic spine degeneration. T12 vertebroplasty. XR/XR chest 2V IMPRESSION: No lobar consolidation. Linear Atelectasis/scarring in the left lung.
[2021-10-04 21:00] VITALS: BP 199/72; PULSE 83; RESP 18; TEMP 36.8; O2SAT 98; BMI 34.3
--- NOTE | 2021-10-04 21:31 | ED_ITS ---
HPI - General Adult General Chief complaint: General Medical Stated complaint: Body aches,Fever Time Seen by Provider: 10/04/21 21:31 Source: patient Mode of arrival: ambulatory Limitations: no limitations History of Present Illness HPI narrative: Patient with history of asthma already been vaccinated against COVID-19 got the booster dose on 09/23 also she got the flu shot since then patient being having running nose dry cough for last 3 days getting worse had low-grade fever also complaining of sore throat also no other family member sick cough is mostly dry and whenever she takes a deep breath makes her cough no leg swelling no cardiac issues Related Data Home Medications Medication Instructions Recorded Confirmed cetirizine 10 mg tablet 10 mg PO DAILY 07/16/20 04/28/21 hydrochlorothiazide 25 mg tablet 25 mg PO DAILY 07/16/20 04/28/21 inhalational spacing device #1 ea 07/16/20 01/29/21 levothyroxine 25 mcg tablet 25 mcg PO DAILY 07/16/20 04/28/21 losartan 100 mg tablet 100 mg PO DAILY 07/16/20 04/28/21 methotrexate sodium 2.5 mg tablet 15 mg PO QWEEK 07/16/20 04/28/21 omeprazole 20 mg capsule,delayed mg PO 07/16/20 04/28/21 release acetaminophen 650 mg 650 mg PO Q12H 08/01/20 04/28/21 tablet,extended release (Tylenol Arthritis Pain) albuterol sulfate 90 mcg/actuation INHALATION 08/01/20 04/28/21 aerosol inhaler biotin 5,000 mcg disintegrating 10,000 mcg PO DAILY 08/01/20 04/28/21 tablet folic acid 1 mg tablet 1 mg PO DAILY 08/01/20 04/28/21 gabapentin 300 mg capsule mg PO 08/01/20 04/28/21 atorvastatin 20 mg tablet 20 mg PO DAILY 10/07/20 04/28/21 prednisone 5 mg tablet mg PO 10/07/20 01/29/21 tiotropium bromide 18 mcg capsule 1 cap INHALATION DAILY 01/29/21 04/28/21 with inhalation device Previous Rx's Medication Instructions Recorded famotidine 40 mg tablet 40 mg PO DAILY #90 tab 02/03/21 cyclobenzaprine 5 mg tablet 5 mg PO Q8H PRN 5 Days #14 tab 04/15/21 lidocaine 5 % topical patch 1 patch TOPICAL DAILY PRN #30 ea 04/15/21 (Lidoderm) MDD remove after 12 hours amoxicillin 875 mg-potassium 1 tab PO BID 10 Days #20 tab 04/28/21 clavulanate 125 mg tablet (Augmentin) naproxen 500 mg tablet 500 mg PO BID PRN 10 Days #20 tab 04/28/21 tramadol 50 mg tablet 50 mg PO Q8H PRN 5 Days #15 tab 04/28/21 fluticasone propionate 50 2 spray INTRANASAL DAILY #48 ml 05/01/21 mcg/actuation nasal spray,suspension montelukast 10 mg tablet 10 mg PO QPM #90 tab 05/01/21 lidocaine 4 % topical patch 1 patch TOPICAL DAILY PRN #10 ea 05/08/21 tramadol 50 mg tablet 50 mg PO TID PRN #14 tab 05/08/21 furosemide 20 mg tablet 20 mg PO DAILY 7 Days #7 tab 07/02/21 albuterol sulfate 2.5 mg (3 mL) INHALATION Q4-6H PRN 10/04/21 #90 ml albuterol sulfate 90 mcg/actuation 2 puff INHALATION Q4-6H PRN #8.5 g 10/04/21 aerosol inhaler (ProAir HFA) amoxicillin 875 mg-potassium 1 tab PO BID #20 tab 10/04/21 clavulanate 125 mg tablet (Augmentin) prednisone 20 mg tablet 40 mg PO DAILY #10 tab 10/04/21 Allergies Allergy/AdvReac Type Severity Reaction Status Date / Time acetaminophen [From PERCOCET] Allergy Mild RASH Verified 07/02/21 14:04 codeine [CODEINE] Allergy Mild Rash Verified 07/02/21 14:04 morphine [MORPHINE] Allergy Mild Hallucinati Verified 07/02/21 14:04 ons oxycodone [Percocet] Allergy Mild Hives Verified 07/02/21 14:04 Review of Systems Review of Systems: Yes all other systems are reviewed and are negative PMFSH Past Medical History Medical History Asthma Atelectasis of left lung Chest pain Chronic allergic rhinitis Limb swelling Family History Family History Father Lung cancer Mother Throat cancer Social History Social History Years Smoked: 4 years Advance Directives: No Advance Directives Information Provided: Yes Physical Exam Vital Signs: Vital Signs: Last Vital Signs Temp 98.2 F 10/04/21 21:00 Pulse 80 10/04/21 23:46 Resp 16 10/04/21 23:46 BP 199/72 H 10/04/21 21:00 Pulse Ox 98 10/04/21 21:00 BMI result Body Mass Index 34.3 Appearance: Alert. Oriented X3. No acute distress. Eyes: No pallor or icterus ENT: Erythematous posterior pharynx, Oral Mucosa moist Neck: Normal inspection. Neck supple. CVS: Normal heart rate and rhythm. Pulses normal. Respiratory: No respiratory distress. Equal air entry bilateral, bilateral prolonged expiration with rhonchi , no crackles Abdomen: Soft and nontender. Bowel sounds are present, no mass palpable, no CVA tenderness Skin: Skin warm and dry. Normal skin color. Normal skin turgor. Extremities: No lower extremity edema. No calf tenderness Neuro: Oriented X 3. Medical Decision Making Lab Data Result diagrams: 10/04/21 22:13 10/04/21 22:13 Labs: Lab Results 10/04/21 10/04/21 10/04/21 Range/Units 22:13 22:13 22:13 WBC 7.5 (4.8-10.8) X10*3/uL RBC 4.46 (4.20-5.50) X10*6/uL Hgb 12.8 (12.0-16.0) g/dl Hct 39.7 (37.0-47.0) % MCV 89.0 (80.0-98.0) fL MCH 28.7 (27.0-33.0) pg MCHC 32.2 (31.0-35.0) g/dl RDW 14.4 (11.0-16.0) % Plt Count 181 (160-400) X10*3/uL MPV Not Reportable Immature Gran % (Auto) 0.5 H (0.0-0.4) % Neut % (Auto) 51.0 (45-73) % Lymph % (Auto) 28.7 (20-40) % [place] % (Auto) 13.0 H (2-11) % Eos % (Auto) 6.4 H (0-4) % Baso % (Auto) 0.4 (0-2) % Lymph # (Auto) 2.1 (1.2-4.9) X10*3/uL [place] # (Auto) 1.0 (0.1-1.2) X10*3/uL Eos # (Auto) 0.5 H (0.0-0.4) X10*3/uL Baso # (Auto) 0.0 (0.0-0.2) X10*3/uL Abs Immat Gran (auto) 0.04 H (0.00-0.03) X10*3/uL Absolute Neuts (auto) 3.8 (2.0-8.3) x10*3/uL Absolute Nucleated RBC 0.000 (0.0-0.012) X10*3/uL Nucleated RBC % (auto) 0.0 (0.0-0.2) /100WBC Smear Tech's Comments VERIFIED Sodium 136 (135-145) mmol/L Potassium 4.0 (3.3-5.1) mmol/L Chloride 106 (96-108) mmol/L Carbon Dioxide 22 (22-29) mmol/L Anion Gap 12 (12-20) BUN 12 (9-16) mg/dL Creatinine 0.85 (0.5-1.4) mg/dL Estim Creat Clear Calc 59.5 Estimated GFR > 60 Random Glucose 99 (60-115) mg/dL Calcium 8.9 (8.4-10.2) mg/dL B-Natriuretic Peptide (<100) pg/mL Influenza Type A (PCR) NEGATIVE (Negative) Influenza Type B (PCR) NEGATIVE (Negative) RSV RNA Qual (PCR) NEGATIVE (Negative) SARS-CoV-2 RNA (RT-PCR) NEGATIVE (Negative) S. pyogenes GrpA RAFAEL (Negative) 10/04/21 10/04/21 Range/Units 22:13 22:13 WBC (4.8-10.8) X10*3/uL RBC (4.20-5.50) X10*6/uL Hgb (12.0-16.0) g/dl Hct (37.0-47.0) % MCV (80.0-98.0) fL MCH (27.0-33.0) pg MCHC (31.0-35.0) g/dl RDW (11.0-16.0) % Plt Count (160-400) X10*3/uL MPV Immature Gran % (Auto) (0.0-0.4) % Neut % (Auto) (45-73) % Lymph % (Auto) (20-40) % [place] % (Auto) (2-11) % Eos % (Auto) (0-4) % Baso % (Auto) (0-2) % Lymph # (Auto) (1.2-4.9) X10*3/uL [place] # (Auto) (0.1-1.2) X10*3/uL Eos # (Auto) (0.0-0.4) X10*3/uL Baso # (Auto) (0.0-0.2) X10*3/uL Abs Immat Gran (auto) (0.00-0.03) X10*3/uL Absolute Neuts (auto) (2.0-8.3) x10*3/uL Absolute Nucleated RBC (0.0-0.012) X10*3/uL Nucleated RBC % (auto) (0.0-0.2) /100WBC Smear Tech's Comments Sodium (135-145) mmol/L Potassium (3.3-5.1) mmol/L Chloride (96-108) mmol/L Carbon Dioxide (22-29) mmol/L Anion Gap (12-20) BUN (9-16) mg/dL Creatinine (0.5-1.4) mg/dL Estim Creat Clear Calc Estimated GFR Random Glucose (60-115) mg/dL Calcium (8.4-10.2) mg/dL B-Natriuretic Peptide 77 (<100) pg/mL Influenza Type A (PCR) (Negative) Influenza Type B (PCR) (Negative) RSV RNA Qual (PCR) (Negative) SARS-CoV-2 RNA (RT-PCR) (Negative) S. pyogenes GrpA RAFAEL Negative (Negative) Discharge Plan Discharge Clinical Impression: Acute bronchitis Qualifiers: Bronchitis organism: unspecified organism Qualified Code(s): J20.9 - Acute bronchitis, unspecified Patient Disposition: Home, Self-Care Instructions: Acute Bronchitis (ED) Additional Instructions: Use inhaler as advised Take prednisone and antibiotic as prescribed Follow-up with PCP if not better Prescriptions: New prednisone 20 mg tablet 40 mg PO DAILY Qty: 10 RF: 0 albuterol sulfate [ProAir HFA] 90 mcg/actuation HFA aerosol inhaler 2 puff inhalation Q4-6H PRN (Reason: Wheezing) Qty: 8.5 RF: 0 amoxicillin-pot clavulanate [Augmentin] 875-125 mg tablet 1 tab PO BID Qty: 20 RF: 0 albuterol sulfate 2.5 mg /3 mL (0.083 %) solution for nebulization 2.5 mg inhalation Q4-6H PRN (Reason: Wheezing) Qty: 90 RF: 0 No Action famotidine 40 mg tablet 40 mg PO DAILY Qty: 90 RF: 2 fluticasone propionate 50 mcg/actuation spray,suspension 2 spray intranasal DAILY Qty: 48 RF: 3 montelukast 10 mg tablet 10 mg PO QPM Qty: 90 RF: 3 lidocaine [Lidoderm] 5 % adhesive patch,medicated 1 patch topical DAILY MDD remove after 12 hours PRN (Reason: pain) Qty: 30 RF: 0 cyclobenzaprine 5 mg tablet 5 mg PO Q8H PRN (Reason: pain (scale score 7-10)) 5 Days Qty: 14 RF: 0 tramadol 50 mg tablet 50 mg PO TID PRN (Reason: pain) Qty: 14 RF: 0 lidocaine 4 % adhesive patch,medicated 1 patch topical DAILY PRN (Reason: pain) Qty: 10 RF: 0 folic acid 1 mg tablet 1 mg PO DAILY RF: 0 gabapentin 300 mg capsule PO RF: 0 albuterol sulfate 90 mcg/actuation HFA aerosol inhaler inhalation RF: 0 biotin 5,000 mcg tablet,disintegrating 10,000 mcg PO DAILY RF: 0 acetaminophen [Tylenol Arthritis Pain] 650 mg tablet extended release 650 mg PO Q12H RF: 0 atorvastatin 20 mg tablet 20 mg PO DAILY RF: 0 prednisone 5 mg tablet PO RF: 0 naproxen 500 mg tablet 500 mg PO BID PRN (Reason: pain) 10 Days Qty: 20 RF: 0 tramadol 50 mg tablet 50 mg PO Q8H PRN (Reason: pain, severe) 5 Days Qty: 15 RF: 0 amoxicillin-pot clavulanate [Augmentin] 875-125 mg tablet 1 tab PO BID 10 Days Qty: 20 RF: 0 furosemide 20 mg tablet 20 mg PO DAILY 7 Days Qty: 7 RF: 0 omeprazole 20 mg capsule,delayed release(DR/EC) PO RF: 0 losartan 100 mg tablet 100 mg PO DAILY RF: 0 hydrochlorothiazide 25 mg tablet 25 mg PO DAILY RF: 0 cetirizine 10 mg tablet 10 mg PO DAILY RF: 0 methotrexate sodium 2.5 mg tablet 15 mg PO QWEEK RF: 0 [facility] Spacer See Rx Instructions ea .ROUTE DIRECTED Qty: 1 RF: 0 levothyroxine 25 mcg tablet 25 mcg PO DAILY RF: 0 tiotropium bromide 18 mcg capsule, w/inhalation device 1 cap inhalation DAILY RF: 0 Interventions: ED Discharge Assessment Last Done: 10/04/21 23:59 Discharge Date/Time: 10/05/21 00:07 Print Language: Georgian
[2021-10-04 22:22] LABS: PLT CLUMP 1; SCAN SMEAR FLAG 1
[2021-10-04 22:24] LABS: Basophils Percent Auto 0.4 % (0-2); Eosinophils Absolute Auto 0.5 X10*3/uL (0.0-0.4); Eosinophils Percent Auto 6.4 % (0-4); Hematocrit 39.7 % (37.0-47.0); Hemoglobin 12.8 g/dl (12.0-16.0); Imm Gran Abs Auto 0.04 X10*3/uL (0.00-0.03); Imm Gran Pct Auto 0.5 % (0.0-0.4); Lymphocytes Absolute Auto 2.1 X10*3/uL (1.2-4.9); Lymphocytes Percent Auto 28.7 % (20-40); MANUAL DIFF FLAG SCAN; Mean Corpuscular HGB Conc 32.2 g/dl (31.0-35.0); Mean Corpuscular Hemoglobin 28.7 pg (27.0-33.0); Neutrophils Absolute Auto 3.8 x10*3/uL (2.0-8.3); Red Blood Count 4.46 X10*6/uL (4.20-5.50); Red Cell Distribution Width 14.4 % (11.0-16.0)
[2021-10-04 22:38] LABS: IDNOW Serial# 9DD0AD1C; Strep A Nucleic Acid Negative (Negative)
[2021-10-04 22:39] LABS: Anion Gap 12 (12-20); Blood Urea Nitrogen 12 mg/dL (9-16); Calcium 8.9 mg/dL (8.4-10.2); Carbon Dioxide 22 mmol/L (22-29); Chloride 106 mmol/L (96-108); Creatinine Clr Calc Pharmacy 59.5; Estimated Glomerular Filt Rate > 60; Glucose Random 99 mg/dL (60-115); Sodium 136 mmol/L (135-145)
[2021-10-04 22:40] LABS: Platelet Count 181 X10*3/uL (160-400); White Blood Count 7.5 X10*3/uL (4.8-10.8)
[2021-10-04 22:41] LABS: SLIDE REVIEW VERIFIED
[2021-10-04 22:47] LABS: B Type Natriuretic Peptide 77 pg/mL (<100)
[2021-10-04 23:07] LABS: Influenza A PCR NEGATIVE (Negative); Influenza B PCR NEGATIVE (Negative); Resp Syncy Virus RNA Qual PCR NEGATIVE (Negative); SARS COV2 PCR INHOUSE NEGATIVE (Negative)
[2021-10-04] MEDS: methylPREDNISolone Sod Succ 125 MG/2 ML VIAL IVPUSH (23:36)
[2021-10-04] MEDS: Amoxicillin/Potassium Clav 875 MG TABLET PO (23:36)
[2021-10-04] MEDS: Albuterol/Iprat 2.5/0.5MG 3 ML AMPUL.NEB INHALE (23:44)
[2021-10-04 23:46] VITALS: PULSE 80; RESP 16; O2SAT 96
== END 2021-10-05 00:07 | disposition home or self-care (01) ==
PROVIDERS: Emergency Provider Internal Medicine; PCP Internal Medicine
DX: J20.9 Acute bronchitis, unspecified (principal); Z20.822 Contact with and (suspected) exposure to COVID-19; M79.10 Myalgia, unspecified site
CPT/HCPCS: 0241U; 36415; 71046; 80048; 83880; 85025; 87651; 94640; 96374; 99283; 99284; J2930

== ENCOUNTER → 2021-12-31 13:04 | Outpatient (BNVA) | payer MEDICARE, SELFPAY | PROVIDERS: PCP Internal Medicine; Visit Provider Hospitalist | DX: J45.30 Mild persistent asthma, uncomplicated (principal); J98.11 Atelectasis; J30.9 Allergic rhinitis, unspecified; M79.89 Other specified soft tissue disorders | CPT/HCPCS: 99212 ==

== ENCOUNTER 2022-10-28 12:42 | Outpatient (REF) | payer OTHER, SELFPAY ==
--- NOTE | ~2022-10-28 | XR_ITS ---
EXAMINATION: XR CHEST 2 VIEWS CLINICAL INFORMATION: Atelectasis. COMPARISON: Prior chest radiographs, most recently 10/04/2021; CT chest dated 05/27/2021.. TECHNIQUE: Frontal and lateral views of the chest were obtained. FINDINGS: The heart, great vessels, pulmonary vasculature and mediastinum are normal. The lungs show no focal infiltrate, effusion or pneumothorax. There is mild linear scar/subsegmental atelectasis in the mid left lung field and base. This is stable from prior chest radiographs. There is no acute osseous abnormality. There has been a prior T12 vertebroplasty. XR/XR chest 2V IMPRESSION: No new infiltrate or congestive heart failure is seen. There is stable plate-like atelectasis in the mid and lower left lung.
== END 2022-10-28 12:43 | disposition home or self-care (01) ==
LOC: HO.XRAY 12:42
PROVIDERS: PCP Internal Medicine; Visit Provider Hospitalist
DX: J98.11 Atelectasis (principal); J30.9 Allergic rhinitis, unspecified; J45.30 Mild persistent asthma, uncomplicated; M79.89 Other specified soft tissue disorders
CPT/HCPCS: 71046; 99212

== ENCOUNTER 2022-12-29 12:01 | Outpatient (REF) | payer OTHER, SELFPAY ==
--- NOTE | ~2022-12-29 | MM_ITS ---
EXAMINATION: MM SCREENING DIGITAL BREAST TOMOSYNTHESIS, BILATERAL CLINICAL INFORMATION: Screening. Asymptomatic. COMPARISON: Mammography: 05/26/2021, 12/14/2019, 07/04/2018 TECHNIQUE: Digital breast tomosynthesis is performed in both the craniocaudal and mediolateral oblique views along with computer-aided detection (CAD). Synthesized 2D images are generated from the tomosynthesis. Additional right MLO and left CC views are provided. FINDINGS: There are scattered areas of fibroglandular density (ACR BI-RADS breast composition Category b). There are no significant masses, abnormal calcifications, or other abnormalities. Incidental intramammary node posterior upper outer right breast again noted. No architectural abnormality or developing density or significant change from prior studies. MM/MM tomosynthesis screening BI IMPRESSION: No mammographic evidence of malignancy. ASSESSMENT: BI-RADS 2: Benign RECOMMENDATION: Routine annual mammography screening. This patient's information was entered into a reminder system with a target due date for their next mammogram.
== END 2022-12-29 12:02 | disposition home or self-care (01) ==
LOC: HO.MAMMO 12:01
PROVIDERS: PCP Internal Medicine; Visit Provider Internal Medicine
DX: Z12.31 Encounter for screening mammogram for malignant neoplasm of breast (principal)
CPT/HCPCS: 77063; 77067

== ENCOUNTER 2023-05-02 13:03 | Outpatient (AMB) | payer OTHER, SELFPAY ==
[2023-05-02 13:29] VITALS: BP 150/68; PULSE 72; O2SAT 99
--- NOTE | 2023-05-02 13:29 | A.OFFVIS_ITS ---
Intake Vital Signs 05/02/23 13:29 Height 4 ft 11 in BP 150/68 H Blood Pressure Location Lt brachial Position Sitting Pulse 72 Pulse Source Pulse Oximeter Pulse Oximetry (%) 99 Oxygen Delivery Method Room Air Intake Visit Reasons: shortness of breath Intake Note: pt is here for follow up and states she is feeling well, short of breath with only walking, Allergies acetaminophen [From PERCOCET] Allergy (Mild, Verified 05/02/23 13:33) RASH codeine [CODEINE] Allergy (Mild, Verified 05/02/23 13:33) Rash morphine [MORPHINE] Allergy (Mild, Verified 05/02/23 13:33) Hallucinations oxycodone [Percocet] Allergy (Mild, Verified 05/02/23 13:33) Hives HPI HPI Comments History of Present Illness Details The patient is a 77-year-old woman with a known history of asthma and chronic rhinitis. overall she has been doing well with the current respiratory regimen. She has not had to use her rescue inhaler more than twice a week. She does have significant rheumatoid arthritis and has been on methotrexate. we did review her last chest x-ray demonstrating some mild atelectasis of the left base. Her PFTs also demonstrated mild restrictive lung disease. Therefore, we need to follow closely any changes while she is on the methotrexate. Otherwise she is doing very well on the current respiratory regimen. She does have some shortness of breath with activity but is mild. her acid reflux appears to be more controlled on the current medication and she is trying to maintain reflux diet along with sleeping elevated. She does take allergy medicine with good effect. 12/31/2021 the patient is here for a pulmonary follow-up visit. Overall she is feeling well. Her breathing has improved and also her volume status has also improved. She continues on methotrexate. This is helping her significantly. She is not taking the 8 tablets a week she is actually taking just 6 tablets. She is to be enough to keep her stable. In the meantime her lower extremity edema has improved. I did review her chest x-ray that she had back in September demonstrating some persistent atelectasis to the left base. I also reviewed her CT scan that she had back in May 2021 demonstrating again areas of atelectasis and less likely pneumonitis. Primarily at the left lung. Will continue to monitor closely her imaging with repeat x-ray in months. Patient is to continue with current therapy. If any issues she is to call for an earlier evaluation. 10/28/2022 the patient is here for a pulmonary follow-up visit. The patient continues to do well. Back in the fall she did have a flare-up of her asthma. She had to use her nebulizer machine a few times a day. Although, she did not need any prednisone. She continues on the methotrexate. She is actually just taking 6 tablets weekly. She is following closely with blood work through the [facility]. She did have a repeat chest x-ray which I personally reviewed. Still has some areas of atelectasis. Also has likely some increased attenuation primarily due to soft tissue but I do not see any evidence of any active lung disease. Will wait for the final read of the x-ray. In the meantime the patient should be on a maintenance inhaler. She had been on Spiriva 4. Will go ahead and switch her to Advair HFA to see if she has a better response. The patient also does not do well with powdered inhalers. 05/02/2023 the age the patient is here for pulmonary follow-up visit. Overall the patient has been doing well. She continues on the methotrexate. No evidence of any adverse effects. The patient has been using her Advair HFA seems to be working well for her. She has a rescue inhaler that she had not had to use. She is no longer using the Spiriva. Her last chest x-ray was back in October or in the winter time demonstrating some atelectasis but stable. Will plan to do a repeat chest x-ray when she comes back in the springtime. The patient is recovering from her shoulder surgery. She had no issues with anesthesia and currently recovering well. [facility] Medical History Asthma Atelectasis of left lung Chest pain Chronic allergic rhinitis Limb swelling Family History Father Lung cancer Mother Throat cancer Social History Patient Tobacco Use Status: Former Tobacco user Tobacco use type: Cigarette Years Smoked: 4 years Review of Systems Const Denies night sweats ENT Denies change in voice, Denies lip swelling, Denies mouth pain, Reports nasal congestion, Reports nasal discharge and Denies tongue swelling Card Denies chest pain, Reports leg edema and Denies dyspnea on exertion Resp Reports cough and Denies dyspnea on exertion GI Denies abdominal pain Musc Reports abnormal gait, Reports myalgias and Reports arthralgias Neuro Denies Neuro-related abnormal movements and Reports abnormal gait Psych Denies no additional complaints Danny/Lymph Denies easy bleeding and Denies lymphadenopathy Aller/Immun Denies lip swelling and Denies tongue swelling Physical Exam Vital Signs: Last Vital Signs Pulse 72 05/02/23 13:29 BP 150/68 H 05/02/23 13:29 Pulse Ox 99 05/02/23 13:29 Oxygen Delivery Method Room Air 05/02/23 13:29 Const General: alert Neck Neck: Yes normal visual inspection, Yes full ROM and Yes no lymphadenopathy Chest Chest palpation & inspection: normal inspection of the chest Resp Auscultation: no rales and diminished lung sounds Cardio Rate: regular rate Rhythm: regular rhythm Heart sounds: S1 normal heart sound present and S2 normal heart sound present GI Palpation (GI): Soft to palpation and nontender Auscultation: normal bowel sounds Skin General skin exam: rashes and/or lesions noted Extrem General: No edema Assessment & Plan Assessment & Plan (1) Chronic allergic rhinitis: Code(s): J30.9 - Allergic rhinitis, unspecified (2) Atelectasis of left lung: Comment: Currently on Methotrexate Code(s): J98.11 - Atelectasis (3) Asthma: Code(s): J45.909 - Unspecified asthma, uncomplicated Qualifiers: Asthma complication type: uncomplicated Asthma persistence: persistent Asthma severity: mild Qualified Code(s): J45.30 - Mild persistent asthma, uncomplicated (4) Limb swelling: Code(s): M79.89 - Other specified soft tissue disorders Plan Short-acting beta agonist as needed continue singular continue Advair HFA continue methotrexate. Will monitor for any pulmonary adverse effects. Seems to be tolerating well right now F/U 6 months Coding Level of Care Code Est Pt Level 4 (88080) Diagnoses Chronic allergic rhinitis J30.9 Atelectasis of left lung J98.11 Asthma J45.30 Asthma complication type: uncomplicated Asthma persistence: persistent Asthma severity: mild Limb swelling M79.89 Time Spent (min) 18
== END 2023-05-02 13:49 | disposition home or self-care (01) ==
PROVIDERS: PCP Internal Medicine; Visit Provider Hospitalist
DX: J30.9 Allergic rhinitis, unspecified (principal); J98.11 Atelectasis; J45.30 Mild persistent asthma, uncomplicated; M79.89 Other specified soft tissue disorders
CPT/HCPCS: 99214

== ENCOUNTER → 2023-05-02 13:03 | Outpatient (BNVA) | payer OTHER, SELFPAY | PROVIDERS: PCP Internal Medicine; Visit Provider Hospitalist | DX: J45.30 Mild persistent asthma, uncomplicated (principal); J30.9 Allergic rhinitis, unspecified; J98.11 Atelectasis; M79.89 Other specified soft tissue disorders; Z79.899 Other long term (current) drug therapy | CPT/HCPCS: 99212 ==

== ENCOUNTER 2023-10-31 13:01 | Outpatient (AMB) | payer OTHER, SELFPAY ==
[2023-10-31 13:10] VITALS: BP 146/64; PULSE 71; O2SAT 100; BMI 35.6
--- NOTE | 2023-10-31 13:10 | A.OFFVIS_ITS ---
Intake Vital Signs 10/31/23 13:10 Height 4 ft 11 in Weight 176 lb 5.917 oz BMI 35.6 BP 146/64 H Blood Pressure Location Lt brachial Position Sitting Pulse 71 Pulse Source Pulse Oximeter Pulse Oximetry (%) 100 Oxygen Delivery Method Room Air Intake Visit Reasons: shortness of breath Allergies acetaminophen [From PERCOCET] Allergy (Mild, Verified 10/31/23 13:13) RASH codeine [CODEINE] Allergy (Mild, Verified 10/31/23 13:13) Rash morphine [MORPHINE] Allergy (Mild, Verified 10/31/23 13:13) Hallucinations oxycodone [Percocet] Allergy (Mild, Verified 10/31/23 13:13) Hives HPI HPI Comments History of Present Illness Details The patient is a 78-year-old woman with a known history of asthma and chronic rhinitis. overall she has been doing well with the current respiratory regimen. She has not had to use her rescue inhaler more than twice a week. She does have significant rheumatoid arthritis and has been on methotrexate. we did review her last chest x-ray demonstrating some mild atelectasis of the left base. Her PFTs also demonstrated mild restrictive lung disease. Therefore, we need to follow closely any changes while she is on the methotrexate. Otherwise she is doing very well on the current respiratory regimen. She does have some shortness of breath with activity but is mild. her acid reflux appears to be more controlled on the current medication and she is trying to maintain reflux diet along with sleeping elevated. She does take allergy medicine with good effect. 12/31/2021 the patient is here for a pulmonary follow-up visit. Overall she is feeling well. Her breathing has improved and also her volume status has also improved. She continues on methotrexate. This is helping her significantly. She is not taking the 8 tablets a week she is actually taking just 6 tablets. She is to be enough to keep her stable. In the meantime her lower extremity edema has improved. I did review her chest x-ray that she had back in September demonstrating some persistent atelectasis to the left base. I also reviewed her CT scan that she had back in May 2021 demonstrating again areas of atelectasis and less likely pneumonitis. Primarily at the left lung. Will continue to monitor closely her imaging with repeat x-ray in months. Patient is to continue with current therapy. If any issues she is to call for an earlier evaluation. 10/28/2022 the patient is here for a pulm onary follow-up visit. The patient continues to do well. Back in the fall she did have a flare-up of her asthma. She had to use her nebulizer machine a few times a day. Although, she did not need any prednisone. She continues on the methotrexate. She is actually just taking 6 tablets weekly. She is following closely with blood work through the [facility]. She did have a repeat chest x-ray which I personally reviewed. Still has some areas of atelectasis. Also has likely some increased attenuation primarily due to soft tissue but I do not see any evidence of any active lung disease. Will wait for the final read of the x-ray. In the meantime the patient should be on a maintenance inhaler. She had been on Spiriva 4. Will go ahead and switch her to Advair HFA to see if she has a better response. The patient also does not do well with powdered inhalers. 05/02/2023 the age the patient is here fo r pulmonary follow-up visit. Overall the patient has been doing well. She continues on the methotrexate. No evidence of any adverse effects. The patient has been using her Advair HFA seems to be working well for her. She has a rescue inhaler that she had not had to use. She is no longer using the Spiriva. Her last chest x-ray was back in October or in the winter time demonstrating some atelectasis but stable. Will plan to do a repeat chest x-ray when she comes back in the springtime. The patient is recovering from her shoulder surgery. She had no issues with anesthesia and currently recovering well. 10/31/2023 the patient is here for pulmon taqueria follow-up visit. Since we last spoke the patient was admitted to [facility] back in the fall with pneumonia. She was told she had fluid around the lungs and also the heart. The subsequent lab got better. Then she developed issues with lower extremity edema and swelling primarily the left lower extremity. She has significant inflammation and redness consistent with cellulitis. She was briefly admitted to the hospital. She completed a course of antibiotics but she does not know the name. At this point the areas getting red and warm again tender. She looks like she is getting recurrent cellulitis. She understands that the lower extremity edema becomes an issue with dermatitis and her scratching and the recurrent infections in the fact that she is on immunosuppressant therapy. Therefore, will give her a course of doxycycline to avoid further spread. The patient also will talk to her primary care doctor about her medications. The amlodipine may be aggravating the lower extremity edema. She may need also additional diuretics. She has a hard time with the compression socks. As far as her lungs she has been doing well now with the Advair. She recovered from the pneumonia and will go ahead and treat her with the Prevnar 20 pneumonia vaccine. In addition to that the patient should get a repeat x-ray to make sure that she does not have any residual changes from her pneumonia. Clinically her respiratory exam is stable and her respiratory exam is also reassuring. [facility] Medical History (Updated 10/31/23 @ 13:34 by Frederick Gerardo MD) Pleural effusion Cellulitis Limb swelling Chest pain Asthma Chronic allergic rhinitis Atelectasis of left lung Family History Father Lung cancer Mother Throat cancer Social History Patient Tobacco Use Status: Former Tobacco user Tobacco use type: Cigarette Years Smoked: 4 years Review of Systems Const Denies night sweats ENT Denies change in voice, Denies lip swelling, Denies mouth pain, Reports nasal congestion, Reports nasal discharge and Denies tongue swelling Card Denies chest pain, Reports leg edema and Denies dyspnea on exertion Resp Reports cough and Denies dyspnea on exertion GI Denies abdominal pain Musc Reports abnormal gait, Reports myalgias and Reports arthralgias Skin/Breast Reports pruritus, Reports erythema, Reports skin pain and Reports skin swelling Neuro Denies Neuro-related abnormal movements and Reports abnormal gait Psych Denies no additional complaints Danny/Lymph Denies easy bleeding and Denies lymphadenopathy Aller/Immun Denies lip swelling and Denies tongue swelling Physical Exam Vital Signs: Last Vital Signs Pulse 71 10/31/23 13:10 BP 146/64 H 10/31/23 13:10 Pulse Ox 100 10/31/23 13:10 Oxygen Delivery Method Room Air 10/31/23 13:10 BMI result Body Mass Index 35.6 Const General: alert Neck Neck: Yes normal visual inspection, Yes full ROM and Yes no lymphadenopathy Chest Chest palpation & inspection: normal inspection of the chest Resp Effort & Inspection: normal respiratory effort Auscultation: no rales and diminished lung sounds Cardio Rate: regular rate Rhythm: regular rhythm Heart sounds: S1 normal heart sound present and S2 normal heart sound present GI Palpation (GI): Soft to palpation and nontender Auscultation: normal bowel sounds Skin General skin exam: rashes and/or lesions noted Extrem General: No edema Immunizations pneumoc 20-renee conj-dip cr(PF) 0.5 mL IM syringe Performing Provider: Frederick Gerardo MD Performing Location: [facility] [place] Pulmonology [facility] Administered by: Yin Smalls LPN on 10/31/23 13:49 Dose Route Admin Location Dispensed Lot Number Expiration Date [facility] [place] [employer] 0.5 mL IM Left Deltoid 0.5 mL [id number] 05/16/24 4425-9447-04 [employer] VIS Given Date VIS Provided VIS Publication Date 10/31/23 Single Vaccine 23 Eligibility Eligibility Date Funding Source Not [facility] Eligible 10/31/23 Private Assessment & Plan Assessment & Plan (1) Chronic allergic rhinitis: Code(s): J30.9 - Allergic rhinitis, unspecified (2) Atelectasis of left lung: Comment: Currently on Methotrexate Code(s): J98.11 - Atelectasis (3) Asthma: Code(s): J45.909 - Unspecified asthma, uncomplicated Qualifiers: Asthma complication type: uncomplicated Asthma persistence: persistent Asthma severity: mild Qualified Code(s): J45.30 - Mild persistent asthma, uncomplicated (4) Limb swelling: Code(s): M79.89 - Other specified soft tissue disorders (5) Cellulitis: Code(s): L03.90 - Cellulitis, unspecified Qualifiers: Laterality: left Site of cellulitis: extremity Site of cellulitis of extremity: lower extremity Qualified Code(s): L03.116 - Cellulitis of left lower limb Plan Short-acting beta agonist as needed continue singular continue Advair HFA continue methotrexate. start doxycycline CXR Will have an evaluation with her PCP soon F/U 4-6 months Orders: Orders XR chest 2V Today J90 - Pleural effusion, not elsewhere classified Pneumococcal 20 Immunization Today J45.909 - Unspecified asthma, uncomplicated Medications: New doxycycline monohydrate 100 mg PO BID 21 days 42 tabs 0RF Coding Level of Care Code Est Pt Level 4 (24991) Diagnoses Chronic allergic rhinitis J30.9 Atelectasis of left lung J98.11 Mild persistent asthma without complication J45.30 Asthma complication type: uncomplicated Asthma persistence: persistent Asthma severity: mild Limb swelling M79.89 Cellulitis of left lower extremity L03.116 Laterality: left Site of cellulitis: extremity Site of cellulitis of extremity: lower extremity Time Spent (min) 17
== END 2023-10-31 13:46 | disposition home or self-care (01) ==
PROVIDERS: PCP Internal Medicine; Visit Provider Hospitalist
DX: J30.9 Allergic rhinitis, unspecified (principal); J98.11 Atelectasis; J45.30 Mild persistent asthma, uncomplicated; M79.89 Other specified soft tissue disorders; L03.116 Cellulitis of left lower limb
CPT/HCPCS: 99214

== ENCOUNTER 2023-10-31 13:01 | Outpatient (REF) | payer OTHER, SELFPAY ==
--- NOTE | ~2023-10-31 | XR_ITS ---
EXAMINATION: XR CHEST CLINICAL INFORMATION: Pleural effusion, not elsewhere classified COMPARISON: Chest 10/28/2022 TECHNIQUE: 2 views of the chest were obtained. FINDINGS: The lungs are well expanded. No significant change in mild linear scar/subsegmental atelectasis in the left midlung and left lung base. No focal consolidation. The cardiomediastinal silhouette was within normal limits. No pleural effusion. T12 kyphoplasty is noted. Interval left shoulder replacement. XR/XR chest 2V IMPRESSION: No CHF or pneumonia. No pleural effusion. Interval left shoulder replacement.
== END 2023-10-31 13:02 | disposition home or self-care (01) ==
LOC: HO.XRAY 13:01
PROVIDERS: PCP Internal Medicine; Visit Provider Hospitalist
DX: J90 Pleural effusion, not elsewhere classified (principal); J45.30 Mild persistent asthma, uncomplicated; Z23 Encounter for immunization
CPT/HCPCS: 71046; 90471; 90677; 99212

== ENCOUNTER 2024-01-04 12:12 | Outpatient (REF) | payer OTHER, SELFPAY | END 2024-01-04 12:13 | disposition home or self-care (01) | LOC: HO.MAMMO 12:12 | PROVIDERS: PCP Internal Medicine; Visit Provider Internal Medicine | DX: Z12.31 Encounter for screening mammogram for malignant neoplasm of breast (principal) | CPT/HCPCS: 77063; 77067 ==

== ENCOUNTER → 2024-01-04 12:30 | Outpatient (BNV) | payer OTHER, SELFPAY | PROVIDERS: PCP Internal Medicine; Visit Provider Radiology Diagnostic Radiology | DX: Z12.31 Encounter for screening mammogram for malignant neoplasm of breast (principal) | CPT/HCPCS: 77063; 77067 ==

== ENCOUNTER 2024-02-09 10:05 | Outpatient (REF) | payer OTHER, SELFPAY ==
--- NOTE | ~2024-02-09 | MM_ITS ---
EXAMINATION: BONE DENSITOMETRY CLINICAL INDICATION: Osteopenia. COMPARISON: Previous BD dated 09/16/2021 and baseline BD dated 03/11/2011. TECHNIQUE: Using a [employer] DXA System (software version: 13.1) manufactured by [employer], dual-energy x-ray absorptiometry was performed of the lumbar spine and left hip. The images are of good technical quality. Summary results are attached. FINDINGS: LEFT FEMUR, NECK: Current: BMD 0.745 g/cm2, Z-score -0.2, T-score -2.1, osteopenia. Prior: BMD 0.722 g/cm2. Baseline: BMD 0.774 g/cm2. LEFT FEMUR, TOTAL: Current: BMD 0.884 g/cm2, Z-score 0.7, T-score -1.0, normal, 2.2% decrease from previous, 4.8% decrease from baseline (<5% change is not significant). Prior: BMD 0.904 g/cm2. Baseline: BMD 0.929 g/cm2. AP SPINE L1-L4: Current: BMD 0.938 g/cm2, Z-score -0.6, T-score -2.0, osteopenia, 1.0% decrease from previous, 0.2% decrease from baseline (<5% change is not significant). Prior: BMD 0.947 g/cm2. Baseline: BMD 0.940 g/cm2. IDENTIFIED RISK FACTORS: Early menopause history of fracture (adult), rheumatoid arthritis, secondary osteoporosis (hyperthyroidism). HISTORY OF FRACTURE: Spine, wrist. MEDICATIONS: Vitamin D. MM/XR DEXA axial skeleton IMPRESSION: 1. DIAGNOSIS: Osteopenia based on the lowest T-score value of -2.1 in the femoral neck applying World Health Organization criteria. 2. 10-YEAR FRACTURE RISK PREDICTION, FRAX: Major osteoporotic fracture (clinical spine, forearm, hip or shoulder) 17.4%. Hip fracture 5.0%. 3. Treatment Recommendations: NOF guidelines recommend consideration for treatment in postmenopausal women and men age 50 and older presenting with the following: -A hip or vertebral (clinical or morphometric) fracture. -T-score less than or equal to -2.5 at the femoral neck or spine after appropriate evaluation to exclude secondary causes. -Low bone mass at the hip or spine and a 10-year fracture probability by FRAX of greater than or equal to 3% for hip fracture or greater than or equal to 20% for major osteoporotic fracture based on the [place] adapted WHO algorithm. 4. Other Recommendations: All treatment decisions require clinical judgment and consideration of individual patient factors, including patient preferences, comorbidities, previous drug use, risk factors not captured in the FRAX model (e.g. frailty, falls, vitamin D deficiency, increased bone turnover, interval significant decline in bone density) and possible under or overestimation of fracture risk by FRAX. Additional medical evaluation for secondary cause of low bone mineral density may be appropriate. FUTURE SCAN RECOMMENDATION: People with diagnosed cases of osteoporosis or at high risk for fracture should have regular bone mineral density tests. For patients eligible for Medicare, routine testing is allowed once every 2 years. The testing frequency can be increased to one year for patients who have rapidly progressing disease, those who are receiving or discontinuing medical therapy to restore bone mass, or have additional risk factors.
== END 2024-02-09 10:06 | disposition home or self-care (01) ==
LOC: HO.MAMMO 10:05
PROVIDERS: PCP Internal Medicine; Visit Provider Internal Medicine
DX: Z13.820 Encounter for screening for osteoporosis (principal); M85.88 Other specified disorders of bone density and structure, other site; Z78.0 Asymptomatic menopausal state
CPT/HCPCS: 77080

== ENCOUNTER 2024-03-09 10:09 | Outpatient (REF) | payer OTHER, SELFPAY ==
[2024-03-09 11:49] LABS: Anion Gap 12 (12-20); Blood Urea Nitrogen 16 mg/dL (9-16); Carbon Dioxide 24 mmol/L (22-29); Chloride 107 mmol/L (96-108); Estimated Glomerular Filt Rate 58; Glucose Random 100 mg/dL (60-115); Sodium 139 mmol/L (135-145)
[2024-03-09 12:10] LABS: Vitamin D 25-OH Total 16.1 ng/mL (>30)
== END 2024-03-09 10:10 | disposition home or self-care (01) ==
LOC: HO.HHCL 10:09
PROVIDERS: Visit Provider Internal Medicine
DX: M85.88 Other specified disorders of bone density and structure, other site (principal)
CPT/HCPCS: 36415; 80048; 82306; 84443

== ENCOUNTER 2024-04-16 15:37 | Outpatient (REF) | payer OTHER, SELFPAY ==
--- NOTE | ~2024-04-16 | XR_ITS ---
EXAMINATION: XR HIP, RIGHT CLINICAL INFORMATION: Right hip pain, worsening with movement COMPARISON: None available. TECHNIQUE: Two views of the right hip. FINDINGS: BONES: Bony structures are intact. There is no focal bone destruction or periosteal reaction seen. JOINTS: Alignment of hip joint is normal. SOFT TISSUE: Soft tissue is normal. No radiopaque foreign body or abnormal air collection is seen. XR/XR hip RT min 2V IMPRESSION: Normal x-ray of right hip. No fracture or dislocation or signs of avascular necrosis are seen.
[2024-04-16 16:10] LABS: MANUAL DIFF FLAG NO
[2024-04-16 16:17] LABS: Basophils Absolute Auto 0.1 X10*3/uL (0.0-0.2); Basophils Percent Auto 1.1 % (0-2); Eosinophils Absolute Auto 1.1 X10*3/uL (0.0-0.4); Eosinophils Percent Auto 10.7 % (0-4); Hemoglobin 11.8 g/dl (12.0-16.0); Imm Gran Abs Auto 0.04 X10*3/uL (0.00-0.03); Imm Gran Pct Auto 0.4 % (0.0-0.4); Lymphocytes Absolute Auto 2.4 X10*3/uL (1.2-4.9); Lymphocytes Percent Auto 23.3 % (20-40); Mean Corpuscular HGB Conc 31.1 g/dl (31.0-35.0); Mean Corpuscular Hemoglobin 26.1 pg (27.0-33.0); Mean Corpuscular Volume 84.1 fL (80.0-98.0); Monocytes Absolute Auto 0.9 X10*3/uL (0.1-1.2); Monocytes Percent Auto 8.4 % (2-11); Neutrophils Absolute Auto 5.7 x10*3/uL (2.0-8.3); Neutrophils Percent Auto 56.1 % (45-73); Platelet Count 200 X10*3/uL (160-400); Red Blood Count 4.52 X10*6/uL (4.20-5.50); Red Cell Distribution Width 18.6 % (11.0-16.0); White Blood Count 10.1 X10*3/uL (4.8-10.8)
[2024-04-16 16:48] LABS: Alanine Aminotransferase 22 U/L (0-31); Albumin Level 3.6 g/dL (3.5-5.0); Alkaline Phosphatase 61 U/L (39-117); Anion Gap 11 (12-20); Aspartate Amino Transferase 18 U/L (5-31); Blood Urea Nitrogen 22 mg/dL (9-16); Calcium 9.1 mg/dL (8.4-10.2); Carbon Dioxide 24 mmol/L (22-29); Chloride 110 mmol/L (96-108); Estimated Glomerular Filt Rate 55; Glucose Random 95 mg/dL (60-115); Potassium 4.3 mmol/L (3.3-5.1); Sodium 141 mmol/L (135-145); Total Protein 7.4 g/dL (6.5-8.0)
[2024-04-16 16:54] LABS: Bilirubin Total 0.3 mg/dL (0.0-1.0)
[2024-04-17 09:35] LABS: Iron 38 mcg/dL (30-160); Percent Iron Saturation 11 % (15-50); Total Iron Binding Capacity 357 mcg/dL (228-428); Unsaturated Iron Binding 319 ug/dL
[2024-04-17 13:24] LABS: Ferritin 23 ng/mL (10-250)
== END 2024-04-16 15:38 | disposition home or self-care (01) ==
LOC: HO.HHCL 15:37
PROVIDERS: Visit Provider Student in an Organized Health Care Education/Training Program
DX: M25.551 Pain in right hip (principal); R10.31 Right lower quadrant pain
CPT/HCPCS: 36415; 73502; 80053; 82728; 83540; 85025; 87210

== ENCOUNTER 2024-04-16 19:41 | Emergency (ER) | payer OTHER, SELFPAY ==
--- NOTE | ~2024-04-16 | CT_ITS ---
EXAMINATION: CT ABDOMEN AND PELVIS WITHOUT CONTRAST CLINICAL INFORMATION: right flank pain. COMPARISON: 09/25/2014. TECHNIQUE: Multidetector volumetric imaging was performed from the superior aspect of the liver through the pubic symphysis without contrast per renal stone protocol. Sagittal and coronal reformatted images were obtained on the technologist workstation. This CT examination was performed using dose optimization techniques as appropriate, variously including the following: *Automated exposure control *Adjustment of mA and/or kV according to patient size (this includes techniques or standardized protocols for targeted exams where dose is matched to indication/reason for exam; i.e. extremities or head) *Use of iterative reconstruction technique DLP: 570 mGy-cm. FINDINGS: LUNG BASES: Mild dependent atelectasis. Prominent mitral annular calcification noted. Small hiatal hernia seen. LIVER, GALLBLADDER, BILIARY TREE: The non-contrast liver is normal in size, shape, and attenuation. No focal hepatic lesion or biliary ductal dilatation is present. The gallbladder is surgically absent. PANCREAS: Unremarkable. SPLEEN: Unremarkable. ADRENAL GLANDS: Unremarkable. KIDNEYS AND URETERS: The kidneys are normal in size, shape, and attenuation. No hydronephrosis, hydroureter, or perinephric stranding. No intrarenal or ureteric calculi. BLADDER: Unremarkable. GASTROINTESTINAL TRACT: Colon is tortuous. I do not appreciate any colonic wall thickening or pericolonic inflammatory change the appendix is not appreciated but no focal inflammatory changes are seen in the right lower quadrant. ABDOMINAL WALL: No significant hernia LYMPHOVASCULAR STRUCTURES: Vascular calcification within the aorta iliac system. No bulky adenopathy. 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
[2024-04-16 19:43] VITALS: BP 189/65; PULSE 72; RESP 20; TEMP 36.9; O2SAT 96; BMI 36.4
--- NOTE | 2024-04-16 19:53 | ED_ITS ---
HPI - General Adult General Chief complaint: Abdominal Pain Stated complaint: flank pain Time Seen by Provider: 04/16/24 23:43 Source: patient Mode of arrival: ambulatory Limitations: no limitations History of Present Illness ED Provider: will MEREDITH narrative: Patient's history of kidney stone and back pain been having pain in right flank area for last 1 week no urinary symptoms no hematuria no fever no chills slightly nauseated no vomiting no fever or chills Related Data Home Medications ?Medication ?Instructions ?Recorded ?Confirmed hydrochlorothiazide 25 mg tablet 25 mg PO DAILY 07/16/20 04/28/21 inhalational spacing device #1 ea 07/16/20 01/29/21 levothyroxine 25 mcg tablet 25 mcg PO DAILY 07/16/20 04/28/21 losartan 100 mg tablet 100 mg PO DAILY 07/16/20 04/28/21 methotrexate sodium 2.5 mg tablet 15 mg PO QWEEK 07/16/20 04/28/21 omeprazole 20 mg capsule,delayed mg PO 07/16/20 04/28/21 release acetaminophen 650 mg 650 mg PO Q12H 08/01/20 04/28/21 tablet,extended release (Tylenol Arthritis Pain) folic acid 1 mg tablet 1 mg PO DAILY 08/01/20 04/28/21 cholecalciferol (vitamin D3) 125 125 mcg PO DAILY 12/31/21 mcg (5,000 unit) capsule gabapentin 100 mg capsule 100 mg PO TID 10/28/22 nebulizers 10/28/22 tamsulosin 0.4 mg capsule 0.4 mg PO QAM 10/28/22 tramadol 50 mg tablet 25 - 50 mg PO Q8H PRN severe pain 10/28/22 amlodipine 10 mg tablet 10 mg PO DAILY 10/31/23 Previous Rx's ?Medication ?Instructions ?Recorded albuterol sulfate 2.5 mg/3 mL 2.5 mg (3 mL) inhalation Q4-6H PRN 10/04/21 (0.083 %) solution for nebulization Wheezing #90 mL albuterol sulfate 90 mcg/actuation 2 puff inhalation Q4-6H PRN 10/04/21 aerosol inhaler (ProAir HFA) Wheezing #8.5 grams fluticasone propionate 115 2 puff inhalation Q12H 30 days #12 10/28/22 mcg-salmeterol 21 mcg/actuation grams HFA inhaler (Advair HFA) montelukast 10 mg tablet 10 mg PO QPM #90 tabs 04/01/23 doxycycline monohydrate 100 mg 100 mg PO BID 21 days #42 tabs 10/31/23 tablet cyclobenzaprine 10 mg tablet 10 mg PO Q8H #20 tabs 04/17/24 tramadol 50 mg tablet 50 mg PO Q6H PRN pain #20 tabs 04/17/24 Allergies Allergy/AdvReac Type Severity Reaction Status Date / Time acetaminophen [From PERCOCET] Allergy Mild RASH Verified 04/16/24 19:48 codeine [CODEINE] Allergy Mild Rash Verified 04/16/24 19:48 morphine [MORPHINE] Allergy Mild Hallucinati Verified 04/16/24 19:48 ons oxycodone [Percocet] Allergy Mild Hives Verified 04/16/24 19:48 Review of Systems 2 Review of Systems: Yes all other systems are reviewed and are negative [facility] Past Medical History Medical History Pleural effusion Cellulitis Limb swelling Chest pain Asthma Chronic allergic rhinitis Atelectasis of left lung Family History Family History Father Lung cancer Mother Throat cancer Social History Social History Patient Tobacco Use Status: Former Tobacco user Tobacco use type: Cigarette Years Smoked: 4 years Smoked in Last 30 Days: No Advance Directives: No Advance Directives Information Provided: No Physical Exam ED Vital Signs: Vital Signs - 24 hr 04/16/24 19:43 04/16/24 23:25 04/17/24 01:11 Temperature 98.4 F 97.5 F 98.4 F Pulse Rate 72 66 69 Respiratory Rate 20 20 17 Blood Pressure 189/65 H 185/83 H 213/91 H Pulse Oximetry 96 99 98 Oxygen Delivery Method Room Air Room Air Room Air 04/17/24 01:17 Temperature Pulse Rate Respiratory Rate Blood Pressure 200/78 H Pulse Oximetry Oxygen Delivery Method BMI result Body Mass Index 36.4 Appearance: Alert. Oriented X3. No acute distress. ENT: Pharynx normal. Oral Mucosa moist Neck: Normal inspection. Neck supple. CVS: Normal heart rate and rhythm. Pulses normal. Respiratory: No respiratory distress. Equal air entry bilateral, no wheezing/rales/rhonchi Abdomen: Soft and nontender. Bowel sounds are present, no mass palpable, r CVA tenderness back: Diffuse lumbar and paraspinal tenderness SLR negative bilaterally Skin: Skin warm and dry. Normal skin color. Normal skin turgor. Extremities: No lower extremity edema. No calf tenderness Neuro: Oriented X 3. No motor deficit. No sensory deficit. Course Course Course Narrative: RME performed by Alison Gaytan PA-C. Patient is an 78 year old assigned female at presenting to the emergency department with right flank pain. Patient states over the last week she has had right flank pain that is radiating into her abdomen. Detailed physical exam and review of systems are deferred to the perinatal breastfeeding assistant. Labs and imaging ordered. Patient placed back in the waiting room pending room availability and results. Medications Administered Discontinued Medications Generic Name Dose Route Start Last Admin Trade Name Freq PRN Reason Stop Dose Admin Ketorolac Tromethamine 60 mg 04/17/24 00:17 04/17/24 00:27 Ketorolac Tromethamine 60 Mg/2 Ml Vial IM 04/17/24 00:18 60 mg ONCE ONE Administration Tramadol HCl 50 mg 04/17/24 00:17 04/17/24 00:27 Tramadol Hcl 50 Mg Tablet PO 04/17/24 00:18 50 mg ONCE ONE Administration Medical Decision Making Medical Decision Making [facility] Narrative: Patient's right flank pain which is diffuse likely musculoskeletal CT scan negative for any obstructive stone labs are stable patient noticed to have elevated blood pressure she missed her carvedilol tonight which she will take when she reached home noticed blood pressure was 189/75 asymptomatic Differential Diagnosis Differential Diagnoses: The differential diagnosis associated with the presentation includes Lab Data [facility] Lab Attestation statement: I reviewed the patient's lab results. 04/17/24 00:50 04/16/24 20:38 Labs: Lab Results 04/16/24 04/16/24 04/17/24 Range/Units 20:38 21:21 00:50 WBC 9.8 (4.8-10.8) X10*3/uL RBC 4.51 (4.20-5.50) X10*6/uL Hgb 11.9 L (12.0-16.0) g/dl Hct 37.2 (37.0-47.0) % MCV 82.5 (80.0-98.0) fL MCH 26.4 L (27.0-33.0) pg MCHC 32.0 (31.0-35.0) g/dl RDW 18.6 H (11.0-16.0) % Plt Count 201 (160-400) X10*3/uL MPV 10.9 (9.4-12.3) fL Immature Gran % (Auto) 0.3 (0.0-0.4) % Neut % (Auto) 47.7 (45-73) % Lymph % (Auto) 28.3 (20-40) % [place] % (Auto) 8.7 (2-11) % Eos % (Auto) 14.1 H (0-4) % Baso % (Auto) 0.9 (0-2) % Lymph # (Auto) 2.8 (1.2-4.9) X10*3/uL [place] # (Auto) 0.9 (0.1-1.2) X10*3/uL Eos # (Auto) 1.4 H (0.0-0.4) X10*3/uL Baso # (Auto) 0.1 (0.0-0.2) X10*3/uL Abs Immat Gran (auto) 0.03 (0.00-0.03) X10*3/uL Absolute Neuts (auto) 4.7 (2.0-8.3) x10*3/uL Absolute Nucleated RBC 0.000 (0.0-0.012) X10*3/uL Nucleated RBC % (auto) 0.0 (0.0-0.2) /100WBC Sodium 139 (135-145) mmol/L Potassium 4.5 (3.3-5.1) mmol/L Chloride 112 H (96-108) mmol/L Carbon Dioxide 19 L (22-29) mmol/L Anion Gap 13 (12-20) BUN 19 H (9-16) mg/dL Creatinine 1.41 H (0.5-1.4) mg/dL Estim Creat Clear Calc 29.4 Estimated GFR 36 Random Glucose 88 (60-115) mg/dL Calcium 9.3 (8.4-10.2) mg/dL Magnesium 2.3 (1.6-2.6) mg/dL Total Bilirubin 0.2 (0.0-1.0) mg/dL AST 21 (5-31) U/L ALT 20 (0-31) U/L Alkaline Phosphatase 65 (39-117) U/L Total Protein 7.6 (6.5-8.0) g/dL Albumin 3.4 L (3.5-5.0) g/dL Urine Color Yellow Urine Appearance Clear Urine pH 6.5 (5.0-9.0) Ur Specific [place] 1.025 (1.005-1.025) Urine Protein Negative (Neg-Trace) mg/dL Urine Glucose (UA) Negative (Negative) mg/dL Urine Ketones Negative (Negative) mg/dL Urine Blood Negative (Negative) Urine Nitrite Negative (Negative) Ur Leukocyte Esterase Small (1+) H (Negative) Urine RBC 0-2 (0-2) /HPF Urine WBC 0-5 (0-5) /HPF Ur Squamous Epith Cells 3-5 (0-2) /HPF Urine Bacteria None Seen (None Seen) Hyaline Casts 0-2 (0-2) /LPF Independent Interpretation I performed an independent interpretation of an: CT Scan Interpretation: [place] [id number] CT Scan Report Signed Patient: Joan Armendariz MR#: [id number] : 1945 Acct:[id number] Age/Sex: 78 / F ADM Date: 04/16/24 Loc: .ED Attending Dr: Ordering Physician: Alison Gaytan Date of Service: 04/16/24 Procedure(s): CT abdomen pelvis wo IV con Accession Number(s): [id number] cc: Jeni Garcia MD; Alison Gaytan~ EXAMINATION: CT ABDOMEN AND PELVIS WITHOUT CONTRAST CLINICAL INFORMATION: right flank pain. COMPARISON: 09/25/2014. TECHNIQUE: Multidetector volumetric imaging was performed from the superior aspect of the liver through the pubic symphysis without contrast per renal stone protocol. Sagittal and coronal reformatted images were obtained on the technologist workstation. This CT examination was performed using dose optimization techniques as appropriate, variously including the following: *Automated exposure control *Adjustment of mA and/or kV according to patient size (this includes techniques or standardized protocols for targeted exams where dose is matched to indication/reason for exam; i.e. extremities or head) *Use of iterative reconstruction technique DLP: 570 mGy-cm. FINDINGS: LUNG BASES: Mild dependent atelectasis. Prominent mitral annular calcification noted. Small hiatal hernia seen. LIVER, GALLBLADDER, BILIARY TREE: The non-contrast liver is normal in size, shape, and attenuation. No focal hepatic lesion or biliary ductal dilatation is present. The gallbladder is surgically absent. PANCREAS: Unremarkable. SPLEEN: Unremarkable. ADRENAL GLANDS: Unremarkable. KIDNEYS AND URETERS: The kidneys are normal in size, shape, and attenuation. No hydronephrosis, hydroureter, or perinephric stranding. No intrarenal or ureteric calculi. BLADDER: Unremarkable. GASTROINTESTINAL TRACT: Colon is tortuous. I do not appreciate any colonic wall thickening or pericolonic inflammatory change the appendix is not appreciated but no focal inflammatory changes are seen in the right lower quadrant. ABDOMINAL WALL: No significant hernia LYMPHOVASCULAR STRUCTURES: Vascular calcification within the aorta iliac system. No bulky adenopathy. 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 Radiology Impression Discussion of test interpretation with radiology: I have reviewed the radiologist's reading. Discharge Plan Discharge Clinical Impression: Back pain Patient Disposition: Home, Self-Care Instructions: Acute Low Back Pain (ED) Additional Instructions: Drink plenty of fluid Your CT scan did not show any stone Pain medication as prescribed Follow with your PCP if not better Prescriptions: New tramadol 50 mg tablet 50 mg PO Q6H PRN (Reason: pain) Qty: 20 0RF cyclobenzaprine 10 mg tablet 10 mg PO Q8H Qty: 20 0RF No Action montelukast 10 mg tablet 10 mg PO QPM Qty: 90 3RF albuterol sulfate [ProAir HFA] 90 mcg/actuation HFA aerosol inhaler 2 puff inhalation Q4-6H PRN (Reason: Wheezing) Qty: 8.5 0RF albuterol sulfate 2.5 mg /3 mL (0.083 %) solution for nebulization 2.5 mg inhalation Q4-6H PRN (Reason: Wheezing) Qty: 90 0RF folic acid 1 mg tablet 1 mg PO DAILY acetaminophen [Tylenol Arthritis Pain] 650 mg tablet extended release 650 mg PO Q12H omeprazole 20 mg capsule,delayed release(DR/EC) PO losartan 100 mg tablet 100 mg PO DAILY hydrochlorothiazide 25 mg tablet 25 mg PO DAILY methotrexate sodium 2.5 mg tablet 15 mg PO QWEEK (DME) [facility] See Rx Instructions .ROUTE DIRECTED Qty: 1 Rx Instructions: As directed levothyroxine 25 mcg tablet 25 mcg PO DAILY cholecalciferol (vitamin D3) 125 mcg (5,000 unit) capsule 125 mcg PO DAILY (DME) nebulizers [facility] [place] See Rx Instructions .ROUTE Rx Instructions: As directed gabapentin 100 mg capsule 100 mg PO TID tramadol 50 mg tablet 25 - 50 mg PO Q8H PRN (Reason: severe pain) tamsulosin 0.4 mg capsule 0.4 mg PO QAM Advair HFA 115-21 mcg/actuation HFA aerosol inhaler 2 puff inhalation Q12H 30 Days Qty: 12 11RF amlodipine 10 mg tablet 10 mg PO DAILY doxycycline monohydrate 100 mg tablet 100 mg PO BID 21 Days Qty: 42 0RF Interventions: ED Discharge Assessment Last Done: 04/17/24 01:11 Discharge Date/Time: 04/17/24 01:45 Print Language: Malay
[2024-04-16 21:03] LABS: Alanine Aminotransferase 20 U/L (0-31); Albumin Level 3.4 g/dL (3.5-5.0); Alkaline Phosphatase 65 U/L (39-117); Anion Gap 13 (12-20); Aspartate Amino Transferase 21 U/L (5-31); Bilirubin Total 0.2 mg/dL (0.0-1.0); Blood Urea Nitrogen 19 mg/dL (9-16); Calcium 9.3 mg/dL (8.4-10.2); Carbon Dioxide 19 mmol/L (22-29); Chloride 112 mmol/L (96-108); Creatinine Clr Calc Pharmacy 29.4; Estimated Glomerular Filt Rate 36; Glucose Random 88 mg/dL (60-115); Magnesium 2.3 mg/dL (1.6-2.6); Potassium 4.5 mmol/L (3.3-5.1); Sodium 139 mmol/L (135-145); Total Protein 7.6 g/dL (6.5-8.0)
[2024-04-16 21:33] LABS: Appearance Urine Clear; Color Urine Yellow; Glucose Urine UA Negative (Negative); Leukocyte Esterase Urine Small (1+) (Negative); Nitrite Urine Negative (Negative); PH 6.5 (5.0-9.0); Specific Gravity - Urine 1.025 (1.005-1.025); UMIC TRIGGER UACC YES; Urine Blood Negative (Negative); Urine Ketones Negative (Negative); Urine Protein Negative (Neg-Trace)
[2024-04-16 22:04] LABS: Bacteria Urine None Seen (None Seen); Hyaline Casts Urine 0-2 /LPF (0-2); RBC Urine 0-2 /HPF (0-2); UACC Culture Trigger YES; WBC Urine 0-5 /HPF (0-5)
[2024-04-16 23:25] VITALS: BP 185/83; PULSE 66; RESP 20; TEMP 36.4; O2SAT 99
[2024-04-17] MEDS: Ketorolac Tromethamine 60 MG/2 ML VIAL IM (00:27)
[2024-04-17] MEDS: traMADoL HCL 50 MG TABLET PO (00:27)
[2024-04-17 01:02] LABS: Basophils Absolute Auto 0.1 X10*3/uL (0.0-0.2); Basophils Percent Auto 0.9 % (0-2); Eosinophils Absolute Auto 1.4 X10*3/uL (0.0-0.4); Eosinophils Percent Auto 14.1 % (0-4); Hematocrit 37.2 % (37.0-47.0); Hemoglobin 11.9 g/dl (12.0-16.0); Imm Gran Abs Auto 0.03 X10*3/uL (0.00-0.03); Imm Gran Pct Auto 0.3 % (0.0-0.4); Lymphocytes Absolute Auto 2.8 X10*3/uL (1.2-4.9); Lymphocytes Percent Auto 28.3 % (20-40); Mean Corpuscular Hemoglobin 26.4 pg (27.0-33.0); Mean Corpuscular Volume 82.5 fL (80.0-98.0); Mean Platelet Volume 10.9 fL (9.4-12.3); Monocytes Absolute Auto 0.9 X10*3/uL (0.1-1.2); Monocytes Percent Auto 8.7 % (2-11); Neutrophils Absolute Auto 4.7 x10*3/uL (2.0-8.3); Neutrophils Percent Auto 47.7 % (45-73); Platelet Count 201 X10*3/uL (160-400); Red Blood Count 4.51 X10*6/uL (4.20-5.50); Red Cell Distribution Width 18.6 % (11.0-16.0); White Blood Count 9.8 X10*3/uL (4.8-10.8)
[2024-04-17 01:11] VITALS: BP 213/91; PULSE 69; RESP 17; TEMP 36.9; O2SAT 98
[2024-04-17 01:17] VITALS: BP 200/78
[2024-04-17 01:37] LABS: MANUAL DIFF FLAG NO
== END 2024-04-17 01:45 | disposition home or self-care (01) ==
PROVIDERS: Physician Assistant Medical; Emergency Provider Internal Medicine; PCP Internal Medicine
DX: M54.50 Low back pain, unspecified (principal); R10.9 Unspecified abdominal pain; R11.0 Nausea; Z79.899 Other long term (current) drug therapy; Z87.891 Personal history of nicotine dependence
CPT/HCPCS: 36415; 74176; 80053; 81001; 83735; 85025; 87086; 96372; 99284; J1885

== ENCOUNTER 2024-05-04 11:39 | Outpatient (REF) | payer OTHER, SELFPAY ==
--- NOTE | ~2024-05-04 | XR_ITS ---
EXAMINATION: XR CHEST CLINICAL INFORMATION: Pleural effusion COMPARISON: CT abdomen pelvis April 16, 2024 and chest x-ray October 31, 2023 TECHNIQUE: 2 views of the chest were obtained. FINDINGS: Cardiac silhouette is normal in size. The lungs are well aerated. Similar subtle linear opacities within the left midlung and left lung base most suggestive of scarring. There is no gross lobar consolidation. No pleural effusion. No pneumothorax. Moderate degenerative changes of the spine. Patient is status post T12 cement augmentation. Partially visualized left shoulder arthroplasty. XR/XR chest 2V IMPRESSION: No acute pulmonary pathology.
== END 2024-05-04 11:40 | disposition home or self-care (01) ==
LOC: HO.XRAY 11:39
PROVIDERS: PCP Student in an Organized Health Care Education/Training Program; Visit Provider Hospitalist
DX: J90 Pleural effusion, not elsewhere classified (principal)
CPT/HCPCS: 71046; 99212

== ENCOUNTER 2024-05-04 12:46 | Outpatient (AMB) | payer OTHER, SELFPAY ==
--- NOTE | 2024-05-04 12:59 | MHC.OFFVIS ---
Vital Signs 05/04/24 13:00 Height 4 ft 11 in Weight 179 lb 14.355 oz BMI 36.3 BP 134/68 Blood Pressure Location Lt brachial Position Sitting Pulse 60 Pulse Source Pulse Oximeter Pulse Oximetry (%) 96 Oxygen Delivery Method Room Air Intake Visit Reasons: shortness of breath Public Health Assistant Required: No Allergies acetaminophen [From PERCOCET] Allergy (Mild, Verified 05/04/24 13:07) RASH codeine [CODEINE] Allergy (Mild, Verified 05/04/24 13:07) Rash morphine [MORPHINE] Allergy (Mild, Verified 05/04/24 13:07) Hallucinations oxycodone [Percocet] Allergy (Mild, Verified 05/04/24 13:07) Hives tramadol Adverse Reaction (Severe, Verified 05/04/24 13:07) Headache HPI Comments Details: The patient is a 78-year-old woman with a known history of asthma and chronic rhinitis. overall she has been doing well with the current respiratory regimen. She has not had to use her rescue inhaler more than twice a week. She does have significant rheumatoid arthritis and has been on methotrexate. we did review her last chest x-ray demonstrating some mild atelectasis of the left base. Her PFTs also demonstrated mild restrictive lung disease. Therefore, we need to follow closely any changes while she is on the methotrexate. Otherwise she is doing very well on the current respiratory regimen. She does have some shortness of breath with activity but is mild. her acid reflux appears to be more controlled on the current medication and she is trying to maintain reflux diet along with sleeping elevated. She does take allergy medicine with good effect. 12/31/2021 the patient is here for a pulmonary follow-up visit. Overall she is feeling well. Her breathing has improved and also her volume status has also improved. She continues on methotrexate. This is helping her significantly. She is not taking the 8 tablets a week she is actually taking just 6 tablets. She is to be enough to keep her stable. In the meantime her lower extremity edema has improved. I did review her chest x-ray that she had back in September demonstrating some persistent atelectasis to the left base. I also reviewed her CT scan that she had back in May 2021 demonstrating again areas of atelectasis and less likely pneumonitis. Primarily at the left lung. Will continue to monitor closely her imaging with repeat x-ray in months. Patient is to continue with current therapy. If any issues she is to call for an earlier evaluation. 10/28/2022 the patient is here for a pulmonary follow-up visit. The patient continues to do well. Back in the fall she did have a flare-up of her asthma. She had to use her nebulizer machine a few times a day. Although, she did not need any prednisone. She continues on the methotrexate. She is actually just taking 6 tablets weekly. She is following closely with blood work through the [facility]. She did have a repeat chest x-ray which I personally reviewed. Still has some areas of atelectasis. Also has likely some increased attenuation primarily due to soft tissue but I do not see any evidence of any active lung disease. Will wait for the final read of the x-ray. In the meantime the patient should be on a maintenance inhaler. She had been on Spiriva 4. Will go ahead and switch her to Advair HFA to see if she has a better response. The patient also does not do well with powdered inhalers. 05/02/2023 the age the patient is here for pulmonary follow-up visit. Overall the patient has been doing well. She continues on the methotrexate. No evidence of any adverse effects. The patient has been using her Advair HFA seems to be working well for her. She has a rescue inhaler that she had not had to use. She is no longer using the Spiriva. Her last chest x-ray was back in October or in the winter time demonstrating some atelectasis but stable. Will plan to do a repeat chest x-ray when she comes back in the springtime. The patient is recovering from her shoulder surgery. She had no issues with anesthesia and currently recovering well. 10/31/2023 the patient is here for pulmonary follow-up visit. Since we last spoke the patient was admitted to [facility] back in the fall with pneumonia. She was told she had fluid around the lungs and also the heart. The subsequent lab got better. Then she developed issues with lower extremity edema and swelling primarily the left lower extremity. She has significant inflammation and redness consistent with cellulitis. She was briefly admitted to the hospital. She completed a course of antibiotics but she does not know the name. At this point the areas getting red and warm again tender. She looks like she is getting recurrent cellulitis. She understands that the lower extremity edema becomes an issue with dermatitis and her scratching and the recurrent infections in the fact that she is on immunosuppressant therapy. Therefore, will give her a course of doxycycline to avoid further spread. The patient also will talk to her primary care doctor about her medications. The amlodipine may be aggravating the lower extremity edema. She may need also additional diuretics. She has a hard time with the compression socks. As far as her lungs she has been doing well now with the Advair. She recovered from the pneumonia and will go ahead and treat her with the Prevnar 20 pneumonia vaccine. In addition to that the patient should get a repeat x-ray to make sure that she does not have any residual changes from her pneumonia. Clinically her respiratory exam is stable and her respiratory exam is also reassuring. 05/04/2024 the patient is here for a pulmonary follow-up visit. Overall the patient is doing well. She does complaint of possible aches and pains. She has some back pain and at times knee pain. She does use her inhalers as prescribed. The patient is on methotrexate once a week with good response. She is not taking any prednisone she does not like do a makes it feel. As far as pain she has gabapentin that she uses at needed just small dose at nighttime because it makes her dizzy. She was evaluated for her back pain in the hospital. She had an x-ray without any acute disease. In addition to that she had an abdominal or CT scan demonstrating no acute disease either. No parenchymal involvement no pleural involvement. The back pain is very much associated with the paraspinal area. It is very tender to the touch. The patient did respond well to Flexeril. I will send her another prescription to the pharmacy. [facility] Medical History Pleural effusion Cellulitis Limb swelling Chest pain Asthma Chronic allergic rhinitis Atelectasis of left lung Family History Father Lung cancer Mother Throat cancer Social History Patient Tobacco Use Status: Former Tobacco user Tobacco use type: Cigarette Years Smoked: 4 years Review of Systems Const Denies night sweats ENT Denies change in voice, Denies lip swelling, Denies mouth pain, Reports nasal congestion, Reports nasal discharge and Denies tongue swelling Card Denies chest pain, Reports leg edema and Denies dyspnea on exertion Resp Reports cough and Denies dyspnea on exertion GI Denies abdominal pain Musc Reports abnormal gait, Reports myalgias and Reports arthralgias Skin/Breast Reports pruritus, Reports erythema, Reports skin pain and Reports skin swelling Neuro Denies Neuro-related abnormal movements and Reports abnormal gait Psych Denies no additional complaints Danny/Lymph Denies easy bleeding and Denies lymphadenopathy Aller/Immun Denies lip swelling and Denies tongue swelling Physical Exam Vital Signs: Last Vital Signs Pulse 60 05/04/24 13:00 BP 134/68 05/04/24 13:00 Pulse Ox 96 05/04/24 13:00 Oxygen Delivery Method Room Air 05/04/24 13:00 BMI result Body Mass Index 36.3 Const General: alert Neck Neck: Yes normal visual inspection, Yes full ROM and Yes no lymphadenopathy Chest Chest palpation & inspection: normal inspection of the chest Resp Effort & Inspection: normal respiratory effort Auscultation: no rales and diminished lung sounds Cardio Rate: regular rate Rhythm: regular rhythm Heart sounds: S1 normal heart sound present and S2 normal heart sound present GI Palpation (GI): Soft to palpation and nontender Auscultation: normal bowel sounds Skin General skin exam: rashes and/or lesions noted Extrem General: No edema Assessment & Plan Assessment & Plan (1) Chronic allergic rhinitis: Code(s): J30.9 - Allergic rhinitis, unspecified Category: Medical (2) Atelectasis of left lung: Comment: Currently on Methotrexate Code(s): J98.11 - Atelectasis Category: Medical (3) Asthma: Code(s): J45.909 - Unspecified asthma, uncomplicated Category: Medical Qualifiers: Asthma complication type: uncomplicated Asthma persistence: persistent Asthma severity: mild Qualified Code(s): J45.30 - Mild persistent asthma, uncomplicated (4) Limb swelling: Code(s): M79.89 - Other specified soft tissue disorders Category: Medical (5) Back pain: Code(s): M54.9 - Dorsalgia, unspecified Category: Medical Qualifiers: Back pain location: thoracic back pain Chronicity: unspecified Back pain laterality: unspecified Qualified Code(s): M54.6 - Pain in thoracic spine Plan Short-acting beta agonist as needed continue singular continue Advair HFA continue methotrexate. start flexeril as needed CXR Will have an evaluation with her PCP soon F/U 4-6 months Orders: Orders XR chest 2V 05/04/24 J90 - Pleural effusion, not elsewhere classified Medications: Changed From cyclobenzaprine 10 mg PO Q8H 20 tabs 0RF To cyclobenzaprine 10 mg PO Q8H PRN 30 tabs 0RF muscle spasm 10 days Coding Level of Care Code Est Pt Level 4 (81438) Diagnoses Chronic allergic rhinitis J30.9 Atelectasis of left lung J98.11 Mild persistent asthma without complication J45.30 Asthma complication type: uncomplicated Asthma persistence: persistent Asthma severity: mild Limb swelling M79.89 Thoracic back pain, unspecified back pain laterality, unspecified chronicity M54.6 Back pain location: thoracic back pain Chronicity: unspecified Back pain laterality: unspecified Time Spent (min) 16
[2024-05-04 13:00] VITALS: BP 134/68; PULSE 60; O2SAT 96; BMI 36.3
== END 2024-05-04 13:23 | disposition home or self-care (01) ==
PROVIDERS: PCP Internal Medicine; Visit Provider Hospitalist
DX: J30.9 Allergic rhinitis, unspecified (principal); J98.11 Atelectasis; J45.30 Mild persistent asthma, uncomplicated; M79.89 Other specified soft tissue disorders; M54.6 Pain in thoracic spine
CPT/HCPCS: 99214

== ENCOUNTER 2024-06-08 16:12 | Outpatient (REF) | payer OTHER, SELFPAY ==
--- NOTE | ~2024-06-08 | MR_ITS ---
EXAMINATION: MR ANGIOGRAM OF THE ABDOMEN WITHOUT AND WITH CONTRAST CLINICAL INFORMATION: Recurring abdominal pain COMPARISON: CT abdomen and pelvis April 16, 2024 TECHNIQUE: MR angiography of the abdomen was performed before and after the administration of 20 mL of Gadavist intravenous contrast without immediate adverse reactions. 3D POSTPROCESSING: Multiple 3-D angiographic images were processed from the initial data set by the [facility] under concurrent physician supervision. FINDINGS: ABDOMINAL AORTA: The abdominal aorta is normal in caliber. 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 RENAL ARTERIES: Mild left and moderate right renal artery stenoses RIGHT ILIOFEMORAL ARTERIES: Patent LEFT ILIOFEMORAL ARTERIES: Patent NONVASCULAR: Lung: No significant abnormality seen. Liver, Gallbladder, Bile Ducts: No significant abnormality seen. Pancreas: No significant abnormality seen. Spleen: Unremarkable Adrenal Glands, Kidneys, Ureters, Bladder: No adrenal masses are seen. The kidneys and bladder are unremarkable. Bones: No bony destructive lesions seen. Degenerative changes are noted in the spine. Lymph nodes: No lymphadenopathy present. Bowel: No evidence of bowel obstruction. MR/MR angio abdomen wo/w con IMPRESSION: 1. 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 2. Mild left and moderate right renal artery stenoses. Electronically signed by: Sabino Medrano MD 06/13/2024 02:41 PM EDT
[2024-06-08] MEDS: gadobutroL 10 ML VIAL IVPUSH ×2 (18:34→18:36)
== END 2024-06-08 16:13 | disposition home or self-care (01) ==
LOC: HO.MRI 16:12
PROVIDERS: PCP Internal Medicine; Visit Provider Internal Medicine
DX: R10.30 Lower abdominal pain, unspecified (principal)
CPT/HCPCS: 74185; A9585

== ENCOUNTER 2024-06-28 11:19 | Emergency (ER) | payer OTHER, SELFPAY ==
--- NOTE | ~2024-06-28 | XR_ITS ---
EXAMINATION: XR CHEST CLINICAL INFORMATION: Chest pain COMPARISON: 05/04/2004 TECHNIQUE: Frontal view of the chest was obtained. FINDINGS: Linear pleural parenchymal scarring in the left midlung and left lung base. Normal lung volumes. No consolidation, pneumothorax, or pleural effusion. Cardiac and mediastinal contours are normal. Atherosclerotic calcifications in the thoracic aorta. Calcification at the mitral annulus. Degenerative spondylosis in the thoracic spine. Left reverse total shoulder arthroplasty is noted. XR/XR chest 1V IMPRESSION: No acute pulmonary findings. Linear pleural parenchymal scarring in the left midlung and left lung base. Electronically signed by: Franklin Lepe MD 06/28/2024 02:59 PM EDT
--- NOTE | ~2024-06-28 | XR_ITS ---
EXAMINATION: XR LUMBOSACRAL SPINE CLINICAL INFORMATION: Low back pain COMPARISON: None available. TECHNIQUE: Three views of the lumbosacral spine. FINDINGS: 5 nonrib-bearing lumbar-type vertebral bodies. Osteopenia which decreases sensitivity for fracture evaluation. Levocurvature of the mid lumbar spine. Status post vertebral augmentation of T12. Potential superior endplate compression deformity along L4. Correlation with point tenderness. Moderate multilevel degenerative changes with disc space narrowing, endplate sclerosis, osteophyte formation, and facet arthropathy. Vertebral body heights and disc spaces are maintained. Posterior elements are intact. Paraspinal soft tissues are unremarkable. Atherosclerotic calcifications of the abdominal aorta. Surgical clips in the right upper abdomen. Pelvic phleboliths are noted. Fecal loading visualized colon. XR/XR lumbar spine 2-3V IMPRESSION: 1. Osteopenia which decreases sensitivity for fracture evaluation. 2. Levocurvature of the mid lumbar spine. 3. Status post vertebral augmentation of T12. 4. Potential superior endplate compression deformity along L4. Correlation with point tenderness. 5. Moderate multilevel degenerative changes. Electronically signed by: Julia Ellis MD 06/28/2024 04:25 PM EDT
[2024-06-28 11:27] VITALS: BP 132/61; PULSE 62; O2SAT 99; BMI 36.4
--- NOTE | 2024-06-28 11:40 | ED.BACK ---
HPI - Back Pain/Injury General Chief Complaint: Extremity Injury, Lower Stated Complaint: BACK/RIGHT SIDE PAIN,FROM PCP OFFICE PER EMS Time Seen by Provider: 06/28/24 11:39 Source: patient, EMS, RN notes reviewed and old records reviewed Mode of arrival: EMS Limitations: no limitations History of Present Illness ED Provider: Benita Austin PA-C HPI Narrative: 79-year-old female with a history of chronic back pain with multilevel degenerative changes and vertebroplasty at T12 in the past, history of peripheral arterial disease, asthma, allergic rhinitis, pleural effusion, who presents to the ER via EMS from their primary care doctor for evaluation of worsening low back pain that radiates on the right side. She states she woke up with the worsening pain this morning, denies any recent injury. She reports the pain is in her right lower back and radiates down her leg and also upper back to her right arm and shoulder. She states she also has chest pain since waking up this morning. She states she has whole body pain including her head and neck. She denies any recent falls and states she just woke up this way. She was previously on chronic tramadol but it is now listed as an allergy due to the medication causing her a posterior headache. She denies any bowel or bladder incontinence. She is able to ambulate and denies any weakness or numbness in her legs, the pain is worse with ambulation. MD elicited complaint: back pain Pertinent past history: prior back pain Onset (ago): hour(s) Timing: progressively worsening Severity: severe Similar Symptoms Previously: Yes Quality: sharp Location: lumbar spine and right lower back Radiation: right upper leg, chest and other (RUE) Exacerbating factors: movement Relieving factors: immobilization Context: unknown Associated symptoms: arthralgias and myalgias Related Data Home Medications ?Medication ?Instructions ?Recorded ?Confirmed inhalational spacing device #1 ea 07/16/20 01/29/21 levothyroxine 25 mcg tablet 25 mcg PO DAILY 07/16/20 04/28/21 losartan 100 mg tablet 100 mg PO DAILY 07/16/20 04/28/21 methotrexate sodium 2.5 mg tablet 15 mg PO QWEEK 07/16/20 04/28/21 omeprazole 20 mg capsule,delayed mg PO 07/16/20 04/28/21 release acetaminophen 650 mg 650 mg PO Q12H 08/01/20 04/28/21 tablet,extended release (Tylenol Arthritis Pain) folic acid 1 mg tablet 1 mg PO DAILY 08/01/20 04/28/21 cholecalciferol (vitamin D3) 125 125 mcg PO DAILY 12/31/21 mcg (5,000 unit) capsule gabapentin 100 mg capsule 100 mg PO TID 10/28/22 nebulizers 10/28/22 carvedilol 6.25 mg tablet 6.25 mg PO BID 05/04/24 Previous Rx's ?Medication ?Instructions ?Recorded albuterol sulfate 2.5 mg/3 mL 2.5 mg (3 mL) inhalation Q4-6H PRN 10/04/21 (0.083 %) solution for nebulization Wheezing #90 mL albuterol sulfate 90 mcg/actuation 2 puff inhalation Q4-6H PRN 10/04/21 aerosol inhaler (ProAir HFA) Wheezing #8.5 grams fluticasone propionate 115 2 puff inhalation Q12H 30 days #12 10/28/22 mcg-salmeterol 21 mcg/actuation grams HFA inhaler (Advair HFA) cyclobenzaprine 10 mg tablet 10 mg PO Q8H PRN muscle spasm 10 05/04/24 days #30 tabs montelukast 10 mg tablet 10 mg PO QPM #90 tabs 05/07/24 cyclobenzaprine 10 mg tablet 10 mg PO TID PRN muscle spasm #10 06/28/24 tabs lidocaine 5 % topical patch 1 patch topical DAILY #15 ea 06/28/24 prednisone 20 mg tablet 40 mg (2 x 20 mg) PO DAILY #6 tabs 06/28/24 Allergies Allergy/AdvReac Type Severity Reaction Status Date / Time acetaminophen [From PERCOCET] Allergy Mild RASH Verified 06/28/24 11:30 codeine [CODEINE] Allergy Mild Rash Verified 06/28/24 11:30 morphine [MORPHINE] Allergy Mild Hallucinati Verified 06/28/24 11:30 ons oxycodone [Percocet] Allergy Mild Hives Verified 06/28/24 11:30 tramadol AdvReac Severe Headache Verified 06/28/24 11:30 Review of Systems Review of Systems: Yes all other systems are reviewed and are negative PMFSH Past Medical History Medical History Pleural effusion Cellulitis Limb swelling Chest pain Asthma Chronic allergic rhinitis Atelectasis of left lung Family History Family History Father Lung cancer Mother Throat cancer Social History Social History Patient Tobacco Use Status: Former Tobacco user Tobacco use type: Cigarette Years Smoked: 4 years Smoked in Last 30 Days: No Use of substances other than those prescribed or required for medical reasons: No Advance Directives: No Advance Directives Information Provided: Yes Do you have a plan to hurt others: No Plan Physical Exam Vital Signs: Vital Signs: Last Vital Signs Temp 98.3 F 06/28/24 17:28 Pulse 73 06/28/24 17:28 Resp 16 06/28/24 17:28 BP 175/65 H 06/28/24 17:28 Pulse Ox 95 06/28/24 17:28 O2 Del Method Room Air 06/28/24 17:28 BMI result Body Mass Index 36.4 Appearance: Alert elderly female. Oriented X3. appears uncomfortable. Head: normocephalic, atraumatic. Eyes: Pupils equal, round and reactive to light. ENT: Pharynx normal. No tonsillar swelling or exudate. Neck: Normal inspection. Neck supple. CVS: Normal heart rate and rhythm. Pulses normal. Respiratory: No respiratory distress. Breath sounds normal. Abdomen: Soft and nontender. +BS x4 Back: normal inspection, tenderness of the right lower lumbar area and middle lumbar area Skin: Skin warm and dry. Normal skin color. Normal skin turgor. No rashes. Extremities: No lower extremity edema. No joint swelling. Neuro/psych: Oriented X 3. No motor deficit. No sensory deficit. CN II-XII intact. Normal speech and cognition. Slow but steady gait Medications Administered Discontinued Medications Generic Name Dose Route Start Last Admin Trade Name Freq PRN Reason Stop Dose Admin Cyclobenzaprine HCl 10 mg 06/28/24 12:00 06/28/24 12:52 Cyclobenzaprine Hcl 10 Mg Tablet PO 06/28/24 12:01 10 mg ONCE ONE Administration Hydromorphone HCl 1 mg 06/28/24 14:55 06/28/24 15:05 Hydromorphone Hcl 2 Mg Tablet PO 06/28/24 14:56 1 mg ONCE ONE Administration Lidocaine 1 patch 06/28/24 12:00 06/28/24 12:53 Lidocaine 4 % Patch Adh..Patch TRANSDERMA 06/28/24 12:01 1 patch ONCE ONE Administration Protocol Prednisone 40 mg 06/28/24 14:55 06/28/24 15:04 Prednisone 20 Mg Tablet PO 06/28/24 14:56 40 mg ONCE ONE Administration Medical Decision Making Medical Decision Making MDM Narrative: 79-year-old female with a history of chronic back pain with multilevel degenerative changes and vertebroplasty at T12 in the past, history of peripheral arterial disease, asthma, allergic rhinitis, pleural effusion, who presents to the ER via EMS from their primary care doctor for evaluation of worsening low back pain that radiates on the right side. Reporting all over body pain on arrival to the ER including chest pain. She is hypertensive, likely due to acute pain. Pain is worse with any movement and ambulation. She has no red flag symptoms of low back pain. DTRs are intact. Doubt cauda equina. Lab workup was unremarkable. Urinalysis negative for infection or blood. EKG without any ischemic changes. Patient has multiple allergies to many narcotics. She has history of chronic kidney disease and was advised not to take NSAIDs. She was given prednisone and Flexeril with mild improvement in her pain. Upon reassessment she was then given a low-dose of oral Dilaudid and tolerated it well. She reports her pain is improved. X-ray of the lumbar spine ordered which shows a possible compression endplate deformity in L4. She does have tenderness in this area. We discussed treatment for compression fractures and recommended referral for pain management. Will send patient home with short course of prednisone for acute pain along with muscle relaxers Lidoderm patches. Return precautions were discussed. Stable for discharge home Differential Diagnosis Differential Diagnoses: The differential diagnosis associated with the presentation includes Inflammatory disorders, malignancy, trauma, osteoporosis, nerve root compression, radiculopathy, plexopathy, degenerative disc disease, disc herniation, spinal stenosis, sacroiliac joint dysfunction, facet joint injury, and less likely infection?like abscess or diskitis Admission/Observation Consideration of admission/observation: Escalation of care including admission/observation considered Discussed observation and possible PT/case management consults with short-term rehab however patient's pain improved and she wanted to go home Lab Data MDM Lab Attestation statement: I reviewed the patient's lab results. 06/28/24 12:51 06/28/24 13:49 Labs: Lab Results 06/28/24 06/28/24 Range/Units 12:51 13:49 WBC 8.4 (4.8-10.8) X10*3/uL RBC 4.68 (4.20-5.50) X10*6/uL Hgb 13.0 (12.0-16.0) g/dl Hct 40.0 (37.0-47.0) % MCV 85.5 (80.0-98.0) fL MCH 27.8 (27.0-33.0) pg MCHC 32.5 (31.0-35.0) g/dl RDW 19.2 H (11.0-16.0) % Plt Count 205 (160-400) X10*3/uL MPV 11.2 (9.4-12.3) fL Immature Gran % (Auto) Cancelled Neut % (Auto) Cancelled Lymph % (Auto) Cancelled [place] % (Auto) Cancelled Eos % (Auto) Cancelled Baso % (Auto) Cancelled Lymph # (Auto) Cancelled [place] # (Auto) Cancelled Eos # (Auto) Cancelled Baso # (Auto) Cancelled Abs Immat Gran (auto) Cancelled Absolute Neuts (auto) Cancelled Absolute Nucleated RBC 0.000 (0.0-0.012) X10*3/uL Nucleated RBC % (auto) 0.0 (0.0-0.2) /100WBC Neutrophils % (Manual) 66 (45-73) % Band Neutrophils % 0 L (3-5) % Lymphocytes % (Manual) 24 (20-40) % Monocytes % (Manual) 2 (2-11) % Eosinophils % (Manual) 7 H (0-4) % Basophils % (Manual) 1 (0-2) % Abs Neuts (Manual) 5.5 (2.0-8.3) X10*3/uL Lymphocytes # (Manual) 2.0 (1.2-4.9) X10*3/uL Monocytes # (Manual) 0.2 (0.1-1.2) X10*3/uL Eosinophils # (Manual) 0.6 H (0.0-0.4) X10*3/uL Basophils # (Manual) 0.1 (0.0-0.2) X10*3/uL Platelet Estimate NORMAL (NORMAL) Plt Morphology Comment NORMAL RBC Morphology NORMAL Sodium 143 (135-145) mmol/L Potassium 4.2 (3.3-5.1) mmol/L Chloride 110 H (96-108) mmol/L Carbon Dioxide 24 (22-29) mmol/L Anion Gap 13 (12-20) BUN 14 (9-16) mg/dL Creatinine 0.86 (0.5-1.4) mg/dL Estim Creat Clear Calc 47.4 Estimated GFR > 60 Random Glucose 101 (60-115) mg/dL Calcium 9.1 (8.4-10.2) mg/dL Magnesium 2.3 (1.6-2.6) mg/dL Total Bilirubin 0.4 (0.0-1.0) mg/dL Direct Bilirubin 0.1 (0.0-0.5) mg/dL AST 19 (5-31) U/L ALT 19 (0-31) U/L Alkaline Phosphatase 59 (39-117) U/L Troponin I High Sens 4.3 (<3.5-17.0) ng/L Total Protein 7.3 (6.5-8.0) g/dL Albumin 3.6 (3.5-5.0) g/dL Urine Color Yellow Urine Appearance Clear Urine pH 7.5 (5.0-9.0) Ur Specific [place] <= 1.005 (1.005-1.025) Urine Protein Negative (Neg-Trace) mg/dL Urine Glucose (UA) Negative (Negative) mg/dL Urine Ketones Negative (Negative) mg/dL Urine Blood Negative (Negative) Urine Nitrite Negative (Negative) Ur Leukocyte Esterase Negative (Negative) Independent Interpretation I performed an independent interpretation of an: EKG and Plain X-Ray Interpretation: No acute fracture appreciated, agree with radiology read EKG normal sinus rhythm, ventricular rate 60 beats per minute, normal NE interval, normal QTC, no change from 06/05/2019 Radiology Impression Discussion of test interpretation with radiology: I have reviewed the radiologist's reading. Independent Historian Clinical information obtained from an independent historian. History obtained from or confirmed by: Other (granddaughter) External Record Review External record reviewed: Outpatient record, Prior outpatient labs and Prior outpatient radiology Tests considered The following testing was considered but not selected: CT scan of the lumbar spine was considered however she just had a CT scan month and a half ago that showed multilevel degenerative changes in the spine Prescription Management I considered prescription management with: Pain Medication and Antibiotic Chronic Conditions Patient?s care impacted by: Other (chronic pain) Critical Care Time Critical Care Time Critical Care Time: No Discharge Plan Discharge Clinical Impression: Low back pain Qualifiers: Chronicity: unspecified Back pain laterality: right Sciatica presence: with sciatica Sciatica laterality: sciatica of right side Qualified Code(s): M54.41 - Lumbago with sciatica, right side Patient Disposition: Home, Self-Care Instructions: Acute Low Back Pain (ED), Lower Back Exercises (ED) Additional Instructions: Limit bending, lifting or twisting. Use ice several times per day for 20 minutes at a time for the next 48 hours and then change to heat. Take medications as prescribed to help with pain and discomfort. Follow up with your Primary Care Doctor this week. If your pain worsens, if you develop new numbness, tingling, weakness, loss of function or incontinence call 911 or come back to the ER right away for evaluation. EXAMINATION: XR LUMBOSACRAL SPINE CLINICAL INFORMATION: Low back pain COMPARISON: None available. TECHNIQUE: Three views of the lumbosacral spine. FINDINGS: 5 nonrib-bearing lumbar-type vertebral bodies. Osteopenia which decreases sensitivity for fracture evaluation. Levocurvature of the mid lumbar spine. Status post vertebral augmentation of T12. Potential superior endplate compression deformity along L4. Correlation with point tenderness. Moderate multilevel degenerative changes with disc space narrowing, endplate sclerosis, osteophyte formation, and facet arthropathy. Vertebral body heights and disc spaces are maintained. Posterior elements are intact. Paraspinal soft tissues are unremarkable. Atherosclerotic calcifications of the abdominal aorta. Surgical clips in the right upper abdomen. Pelvic phleboliths are noted. Fecal loading visualized colon. XR/XR lumbar spine 2-3V IMPRESSION: 1. Osteopenia which decreases sensitivity for fracture evaluation. 2. Levocurvature of the mid lumbar spine. 3. Status post vertebral augmentation of T12. 4. Potential superior endplate compression deformity along L4. Correlation with point tenderness. 5. Moderate multilevel degenerative changes. Prescriptions: New cyclobenzaprine 10 mg tablet 10 mg PO TID PRN (Reason: muscle spasm) Qty: 10 0RF lidocaine 5 % adhesive patch,medicated 1 patch topical DAILY Qty: 15 0RF Rx Instructions: leave on most painful area for up to 12 hrs prednisone 20 mg tablet 40 mg PO DAILY Qty: 6 0RF No Action montelukast 10 mg tablet 10 mg PO QPM Qty: 90 3RF albuterol sulfate [ProAir HFA] 90 mcg/actuation HFA aerosol inhaler 2 puff inhalation Q4-6H PRN (Reason: Wheezing) Qty: 8.5 0RF albuterol sulfate 2.5 mg /3 mL (0.083 %) solution for nebulization 2.5 mg inhalation Q4-6H PRN (Reason: Wheezing) Qty: 90 0RF folic acid 1 mg tablet 1 mg PO DAILY acetaminophen [Tylenol Arthritis Pain] 650 mg tablet extended release 650 mg PO Q12H omeprazole 20 mg capsule,delayed release(DR/EC) PO losartan 100 mg tablet 100 mg PO DAILY methotrexate sodium 2.5 mg tablet 15 mg PO QWEEK (DME) [facility] See Rx Instructions .ROUTE DIRECTED Qty: 1 Rx Instructions: As directed levothyroxine 25 mcg tablet 25 mcg PO DAILY cholecalciferol (vitamin D3) 125 mcg (5,000 unit) capsule 125 mcg PO DAILY (DME) nebulizers [facility] [place] See Rx Instructions .ROUTE Rx Instructions: As directed gabapentin 100 mg capsule 100 mg PO TID Advair HFA 115-21 mcg/actuation HFA aerosol inhaler 2 puff inhalation Q12H 30 Days Qty: 12 11RF carvedilol 6.25 mg tablet 6.25 mg PO BID Rx Instructions: must administer with a meal/food cyclobenzaprine 10 mg tablet 10 mg PO Q8H PRN (Reason: muscle spasm) 10 Days Qty: 30 0RF [place]: [facility] [place]] Jeni Garcia MD [Primary Care Provider] - Interventions: ED Discharge Assessment Last Done: 06/28/24 17:28 Discharge Date/Time: 06/28/24 17:32 Print Language: Dominican
--- NOTE | 2024-06-28 12:05 | ECG_ITS ---
Test Reason : CHEST PAIN Blood Pressure : / mmHG Vent. Rate : 060 BPM Atrial Rate : 060 BPM P-R Int : 168 ms QRS Dur : 082 ms QT Int : 412 ms P-R-T Axes : 045 005 042 degrees QTc Int : 412 ms Normal sinus rhythm Normal ECG When compared with ECG of 03-JUN-2019 11:36, No significant change was found Referred By: Geovanna Austin Electronically Signed By:PREETHI DODSON
[2024-06-28] MEDS: Cyclobenzaprine HCl 10 MG TABLET PO (12:52)
[2024-06-28] MEDS: Lidocaine 4 % Patch ADH..PATCH 1 PATCH TRANSDERMA (12:53)
[2024-06-28 12:57] LABS: Appearance Urine Clear; Color Urine Yellow; Glucose Urine UA Negative (Negative); Leukocyte Esterase Urine Negative (Negative); Mean Corpuscular HGB Conc 32.5 g/dl (31.0-35.0); Mean Corpuscular Hemoglobin 27.8 pg (27.0-33.0); Mean Corpuscular Volume 85.5 fL (80.0-98.0); Mean Platelet Volume 11.2 fL (9.4-12.3); Nitrite Urine Negative (Negative); PH 7.5 (5.0-9.0); Platelet Count 205 X10*3/uL (160-400); Red Blood Count 4.68 X10*6/uL (4.20-5.50); Red Cell Distribution Width 19.2 % (11.0-16.0); Specific Gravity - Urine <= 1.005 (1.005-1.025); Urine Blood Negative (Negative); Urine Ketones Negative (Negative); Urine Protein Negative (Neg-Trace)
[2024-06-28 12:58] LABS: WBC ABN SCTR FOR CBC 1
[2024-06-28 13:12] VITALS: BP 190/74; PULSE 60; RESP 18; TEMP 36.8; O2SAT 98
[2024-06-28 13:15] LABS: Band Neutrophils Percent 0 % (3-5); Basophils Percent Manual 1 % (0-2); Eosinophils Percent Manual 7 % (0-4); Lymphocytes Percent Manual 24 % (20-40); Monocytes Percent Manual 2 % (2-11); Neutrophils Percent Manual 66 % (45-73)
[2024-06-28 13:16] LABS: Platelet Estimate NORMAL (NORMAL); Platelet Morphology Comment NORMAL; RBC Morphology NORMAL
[2024-06-28 13:17] LABS: Basophils Abs Manual 0.1 X10*3/uL (0.0-0.2); Eosinophils Absolute Manual 0.6 X10*3/uL (0.0-0.4); Monocytes Absolute Manual 0.2 X10*3/uL (0.1-1.2); Neutrophils Absolute Manual 5.5 X10*3/uL (2.0-8.3); White Blood Count 8.4 X10*3/uL (4.8-10.8)
[2024-06-28 13:18] LABS: Troponin-I High Sensitivity 4.3 ng/L (<3.5-17.0)
[2024-06-28 14:08] LABS: Alanine Aminotransferase 19 U/L (0-31); Albumin Level 3.6 g/dL (3.5-5.0); Alkaline Phosphatase 59 U/L (39-117); Anion Gap 13 (12-20); Aspartate Amino Transferase 19 U/L (5-31); Bilirubin Direct 0.1 mg/dL (0.0-0.5); Bilirubin Total 0.4 mg/dL (0.0-1.0); Blood Urea Nitrogen 14 mg/dL (9-16); Calcium 9.1 mg/dL (8.4-10.2); Carbon Dioxide 24 mmol/L (22-29); Chloride 110 mmol/L (96-108); Creatinine Clr Calc Pharmacy 47.4; Estimated Glomerular Filt Rate > 60; Glucose Random 101 mg/dL (60-115); Magnesium 2.3 mg/dL (1.6-2.6); Potassium 4.2 mmol/L (3.3-5.1); Sodium 143 mmol/L (135-145); Total Protein 7.3 g/dL (6.5-8.0)
[2024-06-28] MEDS: predniSONE 20 MG TABLET 40 MG PO (15:04)
[2024-06-28] MEDS: HYDROmorphone HCl 2 MG TABLET 1 MG PO (15:05)
[2024-06-28 17:01] VITALS: BP 175/65; PULSE 73; RESP 16; TEMP 36.8; O2SAT 95
[2024-06-28 17:28] VITALS: BP 175/65; PULSE 73; RESP 16; TEMP 36.8; O2SAT 95
== END 2024-06-28 17:32 | disposition home or self-care (01) ==
PROVIDERS: Physician Assistant; Emergency Provider Emergency Medicine; PCP Internal Medicine
DX: M54.41 Lumbago with sciatica, right side (principal); R07.89 Other chest pain; Z79.899 Other long term (current) drug therapy; Z87.891 Personal history of nicotine dependence
CPT/HCPCS: 36415; 71045; 72100; 80048; 80076; 81003; 83735; 84484; 85007; 85027; 93005; 99284

== ENCOUNTER 2024-07-11 12:50 | Outpatient (AMB) | payer OTHER, SELFPAY ==
[2024-07-11 13:05] VITALS: BP 148/65; PULSE 96; O2SAT 97; BMI 36.1
--- NOTE | 2024-07-11 13:05 | MHC.OFFVIS ---
Vital Signs 07/11/24 13:05 Height 4 ft 11 in Weight 179 lb BMI 36.1 BP 148/65 H Blood Pressure Location Lt brachial Position Sitting Pulse 96 Pulse Source Pulse Oximeter Pulse Oximetry (%) 97 Oxygen Delivery Method Room Air Intake Visit Reasons: Low Back Pain/ED Follow Up Allergies acetaminophen [From PERCOCET] Allergy (Mild, Verified 07/11/24 13:06) RASH codeine [CODEINE] Allergy (Mild, Verified 07/11/24 13:06) Rash morphine [MORPHINE] Allergy (Mild, Verified 07/11/24 13:06) Hallucinations oxycodone [Percocet] Allergy (Mild, Verified 07/11/24 13:06) Hives tramadol Adverse Reaction (Severe, Verified 07/11/24 13:06) Headache Medication List - Last Reconciled 07/11/24 by Donna Knott acetaminophen ER (Tylenol Arthritis Pain) 650 mg PO Q12H albuterol sulfate 2.5 mg (3 mL) inhalation Q4-6H PRN albuterol sulfate 90 mcg/actuation (ProAir HFA) 2 puffs inhalation Q4-6H PRN carvedilol 6.25 mg PO BID cholecalciferol (vitamin D3) 125 mcg PO DAILY cyclobenzaprine 10 mg PO TID PRN cyclobenzaprine 10 mg PO Q8H PRN 10 days fluticasone propion-salmeterol 115-21 mcg/actuation (Advair HFA) 2 puffs inhalation Q12H 30 days folic acid 1 mg PO DAILY gabapentin 100 mg PO TID inhalational spacing device As directed levothyroxine 25 mcg PO DAILY lidocaine 5% 1 patch topical DAILY losartan 100 mg PO DAILY methotrexate sodium 15 mg PO QWEEK montelukast 10 mg PO QPM nebulizers As directed omeprazole mg PO prednisone 40 mg (2 x 20 mg) PO DAILY HPI Comments Details: Joan is a very pleasant 79-year-old female who presents the office, accompanied by her daughter, for evaluation management of her chronic lower back pain Patient is Croatian-speaking, medical assistant ob gyn was offered, patient and daughter declined. Will assist translation during the visit Complaining of right lower back pain for last 2 months, worse over the last 2 weeks She was evaluated in the emergency room where she had an x-ray. There is concern for an L4 compression fracture. Recently evaluated for follow-up by her primary care doctor an MRI was ordered. MRI scheduled for next week, 07/17/2024 Patient denies trauma, fall, injury. Does have a history of osteopenia/osteoporosis. Previous T12 compression fracture status post kypho. Pain today is rated as 8/10, worse with movement, breathing, palpation Right lower back pain with radiation down the right leg to the ankle Denies red flag symptoms including new loss of bowel, bladder or saddle anesthesia Taking Tylenol and gabapentin without improvement in symptoms. She was given cyclobenzaprine and discharged in the emergency room did help some but made her very sleepy Previously she was on tramadol per primary care doctor but started suffering with posterior headache so was discontinued. In terms of muscle damage condition is described as stabbing, sharp numb Pain is negatively impacting patient's enjoyment of life, general activity, sleep, movement mobility, would take care herself and overall function Denies current use of anticoagulants Denies current use of nicotine, tobacco, alcohol or illicit substances FORMERLY [facility] Medical History Pleural effusion Cellulitis Limb swelling Chest pain Asthma Chronic allergic rhinitis Atelectasis of left lung Family History Father Lung cancer Mother Throat cancer Social History Patient Tobacco Use Status: Former Tobacco user Tobacco use type: Cigarette Years Smoked: 4 years Review of Systems Const All systems reviewed & are unremarkable except as noted in HPI and below Physical Exam Vital Signs: Last Vital Signs Pulse 96 07/11/24 13:05 BP 148/65 H 07/11/24 13:05 Pulse Ox 97 07/11/24 13:05 Oxygen Delivery Method Room Air 07/11/24 13:05 BMI result Body Mass Index 36.1 General: awake, alert, oriented. Answers questions appropriately. Fully engaged in examination. Skin: warm, dry, intact HEENT: Normocephalic. Hearing intact. Cardiac: External chest normal in appearance. Respiratory: No cough, audible wheezing or stridor. Abdomen: without gross distension. MS: No obvious swelling or deformities. Able to transition from sit to stand with use of her arms to help push from chair Ambulates with bilaterally normal heel strike and toe off Tenderness to palpation in the lumbar vertebrae and lumbar paraspinal muscles, notable for significant tenderness over L4 on the right SLR positive on the right Significantly decreased range of motion in all planes Facet positive bilaterally Valsalva positive Neurological: Oriented to person, place, time and situation. Thought process intact. Antalgic gait, ambulates with the use of a cane Psychiatric: Appropriate mood and affect. Good judgment and insight. Results Reviewed Results Reviewed: 06/28/24 XR/XR lumbar spine 2-3 5 nonrib-bearing lumbar-type vertebral bodies. Osteopenia which decreases sensitivity for fracture evaluation. Levocurvature of the mid lumbar spine. Status post vertebral augmentation of T12. Potential superior endplate compression deformity along L4. Correlation with point tenderness. Moderate multilevel degenerative changes with disc space narrowing, endplate sclerosis, osteophyte formation, and facet arthropathy. Vertebral body heights and disc spaces are maintained. Posterior elements are intact. Paraspinal soft tissues are unremarkable. Atherosclerotic calcifications of the abdominal aorta. Surgical clips in the right upper abdomen. Pelvic phleboliths are noted. Fecal loading visualized colon. IMPRESSION: 1. Osteopenia which decreases sensitivity for fracture evaluation. 2. Levocurvature of the mid lumbar spine. 3. Status post vertebral augmentation of T12. 4. Potential superior endplate compression deformity along L4. Correlation with point tenderness. 5. Moderate multilevel degenerative changes. Assessment & Plan Assessment & Plan (1) Lumbar radiculopathy: Code(s): M54.16 - Radiculopathy, lumbar region Category: Medical Plan Continue with plan for MRI on 07/17/2024 Discontinue cyclobenzaprine, new prescriptions and for methocarbamol 500 mg p.o. t.i.d. as needed. Patient advised on cautions for use. Not drive while taking this medication, do not take with alcohol or other [employer] depressants Back brace order sent to [facility]. Patient was advised on use. Use with caution to avoid overuse and weakening of the or muscles. All questions and concerns answered, patient and daughter agree with the plan. She will follow up here after MRI where we can discuss options for treatment. Tentative plan for kyphoplasty if fracture warrants this procedure Medications: New back brace As directed 1 ea [facility] M54.16 - Radiculopathy, lumbar region methocarbamol Discontinue cyclobenzaprine before starting this medication. No driving while taking this medication. Do no take with alcohol or other [employer] Depressants 500 mg PO TID PRN 60 tabs 0RF muscle spasm Coding Level of Care Code New Pt Level 4 (63563) Complex EM visit Add On G2211 Diagnoses Lumbar radiculopathy M54.16
== END 2024-07-11 13:54 | disposition home or self-care (01) ==
PROVIDERS: PCP Internal Medicine; Visit Provider Registered Nurse Emergency
DX: M54.16 Radiculopathy, lumbar region (principal)
CPT/HCPCS: 99204; G2211

== ENCOUNTER → 2024-07-11 12:50 | Outpatient (BNVA) | payer OTHER, SELFPAY | PROVIDERS: PCP Internal Medicine; Visit Provider Registered Nurse Emergency | DX: M54.16 Radiculopathy, lumbar region (principal) | CPT/HCPCS: 99202 ==

== ENCOUNTER 2024-07-17 08:06 | Outpatient (REF) | payer OTHER, SELFPAY ==
--- NOTE | ~2024-07-17 | MR_ITS ---
EXAMINATION: MR LUMBAR SPINE WITHOUT CONTRAST CLINICAL INFORMATION: Worsening ambulation, rule out cord compression COMPARISON: MRI lumbar spine on 01/13/2015 TECHNIQUE: MRI of the lumbar spine was obtained using routine sequences without contrast. FINDINGS: Mild to moderate levocurvature of the lumbar spine. Preservation of the normal lumbar lordosis. No listhesis. No acute bone marrow abnormality. Kyphoplasty at T12. The remaining vertebral body heights are preserved. Multilevel disc desiccation with mild disc height loss at L3-4. Multilevel endplate osteophytosis. The visualized spinal cord is normal in caliber. No abnormal cord signal. The conus medullaris terminates at L1. T12-L1: Small disc bulge. No significant spinal canal or neural foraminal narrowing. L1-2: No significant spinal canal or neural foraminal narrowing. L2-3: Diffuse disc bulge and bilateral facet arthrosis. Minimal spinal canal stenosis, unchanged. Mild to moderate right greater than left neural foraminal narrowing, unchanged. L3-4: Postsurgical changes. Decompressed spinal canal. Diffuse disc bulge and bilateral facet arthrosis. Moderate to severe right and moderate left neural foraminal narrowing with the disc abutting the right exiting L3 nerve roots, progressed on the right. L4-5: Postsurgical changes. Decompressed spinal canal. Moderate to severe right and moderate left neural foraminal narrowing with the disc abutting the exiting L4 nerve roots bilaterally, progressed from prior. L5-S1: Sequelae left hemilaminectomy. Diffuse disc bulge, prominent dorsal epidural fat, and left greater than right facet arthrosis. Mild to moderate spinal canal stenosis, unchanged. Moderate left and mild right neural foraminal narrowing with the disc abutting the exiting L5 nerve roots bilaterally, also unchanged. The paravertebral soft tissues are otherwise unremarkable. MR/MR lumbar spine wo con IMPRESSION: -Postsurgical changes from L3 to L5 decompressive laminectomies. There is moderate to severe right and moderate left neural foraminal narrowing at these levels with the disc abutting the exiting L3 and L4 nerve roots bilaterally. -At L5-S1, there is unchanged mild to moderate spinal canal stenosis and moderate left and mild right neural foraminal narrowing with the disc abutting the exiting L5 nerve roots bilaterally. -Additionally, progressive neural foraminal narrowing at L3-4 and L4-5, now moderate to severe on the right. Electronically signed by: Justine Snell MD 07/17/2024 10:59 AM EDT RP
== END 2024-07-17 08:07 | disposition home or self-care (01) ==
LOC: HO.MRI 08:06
PROVIDERS: PCP Internal Medicine; Visit Provider Internal Medicine
DX: M79.604 Pain in right leg (principal)
CPT/HCPCS: 72148

== ENCOUNTER 2024-08-03 13:07 | Outpatient (AMB) | payer OTHER, SELFPAY ==
--- NOTE | 2024-08-03 13:26 | A.OFFVIS_ITS ---
Vital Signs 08/03/24 13:27 Height 4 ft 11 in Weight 81.193 kg BMI 36.1 Pulse 69 Pulse Source Pulse Oximeter Pulse Oximetry (%) 99 Oxygen Delivery Method Room Air Intake Visit Reasons: MRI FOLLOW UP/RESULTS Allergies acetaminophen [From PERCOCET] Allergy (Mild, Verified 07/11/24 13:06) RASH codeine [CODEINE] Allergy (Mild, Verified 07/11/24 13:06) Rash morphine [MORPHINE] Allergy (Mild, Verified 07/11/24 13:06) Hallucinations oxycodone [Percocet] Allergy (Mild, Verified 07/11/24 13:06) Hives tramadol Adverse Reaction (Severe, Verified 07/11/24 13:06) Headache [facility] Medical History Pleural effusion Cellulitis Limb swelling Chest pain Asthma Chronic allergic rhinitis Atelectasis of left lung Family History Father Lung cancer Mother Throat cancer Social History Patient Tobacco Use Status: Former Tobacco user Tobacco use type: Cigarette Years Smoked: 4 years Coding
[2024-08-03 13:27] VITALS: PULSE 69; O2SAT 99; BMI 36.1
--- NOTE | 2024-08-03 13:47 | A.OFFVIS_ITS ---
Vital Signs 08/03/24 13:27 Height 4 ft 11 in Weight 179 lb BMI 36.1 Pulse 69 Pulse Source Pulse Oximeter Pulse Oximetry (%) 99 Oxygen Delivery Method Room Air Intake Visit Reasons: MRI FOLLOW UP/RESULTS Allergies acetaminophen [From PERCOCET] Allergy (Mild, Verified 08/03/24 13:28) RASH codeine [CODEINE] Allergy (Mild, Verified 08/03/24 13:28) Rash morphine [MORPHINE] Allergy (Mild, Verified 08/03/24 13:28) Hallucinations oxycodone [Percocet] Allergy (Mild, Verified 08/03/24 13:28) Hives tramadol Adverse Reaction (Severe, Verified 08/03/24 13:28) Headache Medication List - Last Reconciled 08/03/24 by Donna Knott acetaminophen ER (Tylenol Arthritis Pain) 650 mg PO Q12H albuterol sulfate 2.5 mg (3 mL) inhalation Q4-6H PRN albuterol sulfate 90 mcg/actuation (ProAir HFA) 2 puffs inhalation Q4-6H PRN back brace As directed carvedilol 6.25 mg PO BID cholecalciferol (vitamin D3) 125 mcg PO DAILY cyclobenzaprine 10 mg PO TID PRN cyclobenzaprine 10 mg PO Q8H PRN 10 days fluticasone propion-salmeterol 115-21 mcg/actuation (Advair HFA) 2 puffs inhalation Q12H 30 days folic acid 1 mg PO DAILY gabapentin 100 mg PO TID inhalational spacing device As directed levothyroxine 25 mcg PO DAILY lidocaine 5% 1 patch topical DAILY losartan 100 mg PO DAILY methocarbamol 500 mg PO TID PRN methotrexate sodium 15 mg PO QWEEK montelukast 10 mg PO QPM nebulizers As directed omeprazole mg PO prednisone 40 mg (2 x 20 mg) PO DAILY HPI Comments Details: Joan presents back to the office today for follow-up lower back pain, review of recent MRI. Visit was completed with language interpreter Jeremy #[id number] MRI was reviewed, results as per below Patient continues with 8/10 lower back pain with radiation down the right leg. Endorses some numbness of the right calf to the foot and burning shooting pain into the right thigh. Reports this started over the last couple of months. Denies red flag symptoms including new loss of bowel, bladder or saddle anesthesia Taking gabapentin 3 times daily with minimal improvement. Reports it makes her sleepy so she does not wish to increase the dose. Tylenol with minimal improvement. Previously prescribed muscle relaxers which did not help, also did not like how they made her feel. She has a history of prior back surgery at L4-5 that was done at [facility] greater than 10 years ago Intake note: Joan is a very pleasant 79-year-old female who presents the office, accompanied by her daughter, for evaluation management of her chronic lower back pain Patient is Estonian-speaking, medical anthropologist was offered, patient and daughter declined. Will assist translation during the visit Complaining of right lower back pain for last 2 months, worse over the last 2 weeks She was evaluated in the emergency room where she had an x-ray. There is concern for an L4 compression fracture. Recently evaluated for follow-up by her primary care doctor an MRI was ordered. MRI scheduled for next week, 07/17/2024 Patient denies trauma, fall, injury. Does have a history of osteopenia/osteoporosis. Previous T12 compression fracture status post kypho. Pain today is rated as 8/10, worse with movement, breathing, palpation Right lower back pain with radiation down the right leg to the ankle Denies red flag symptoms including new loss of bowel, bladder or saddle anesthesia Taking Tylenol and gabapentin without improvement in symptoms. She was given cyclobenzaprine and discharged in the emergency room did help some but made her very sleepy Previously she was on tramadol per primary care doctor but started suffering with posterior headache so was discontinued. In terms of muscle damage condition is described as stabbing, sharp numb Pain is negatively impacting patient's enjoyment of life, general activity, sleep, movement mobility, would take care herself and overall function Denies current use of anticoagulants Denies current use of nicotine, tobacco, alcohol or illicit substances FORMERLY [facility], [facility] Medical History Pleural effusion Cellulitis Limb swelling Chest pain Asthma Chronic allergic rhinitis Atelectasis of left lung Family History Father Lung cancer Mother Throat cancer Social History Patient Tobacco Use Status: Former Tobacco user Tobacco use type: Cigarette Years Smoked: 4 years Review of Systems Const All systems reviewed & are unremarkable except as noted in HPI and below Physical Exam Vital Signs: Last Vital Signs Pulse 69 08/03/24 13:27 Pulse Ox 99 08/03/24 13:27 Oxygen Delivery Method Room Air 08/03/24 13:27 BMI result Body Mass Index 36.1 General: awake, alert, oriented. Answers questions appropriately. Fully engaged in examination. Skin: warm, dry, intact HEENT: Normocephalic. Hearing intact. Cardiac: External chest normal in appearance. Respiratory: No cough, audible wheezing or stridor. Abdomen: without gross distension. MS: No obvious swelling or deformities. Ambulates with the use of a cane Tenderness to palpation in the lumbar vertebrae and lumbar paraspinal muscles SLR positive on the right. Negative footdrop, negative clonus. Facet positive bilaterally Neurological: Oriented to person, place, time and situation. Thought process intact. Antalgic gait Psychiatric: Appropriate mood and affect. Good judgment and insight. Quality Reporting (2019) Adult ([facility] ) Body Mass Index: 36.1 Results Reviewed Results Reviewed: 07/17/2024 MR/MR lumbar spine wo con FINDINGS: Mild to moderate levocurvature of the lumbar spine. Preservation of the normal lumbar lordosis. No listhesis. No acute bone marrow abnormality. Kyphoplasty at T12. The remaining vertebral body heights are preserved. Multilevel disc desiccation with mild disc height loss at L3-4. Multilevel endplate osteophytosis. The visualized spinal cord is normal in caliber. No abnormal cord signal. The conus medullaris terminates at L1. T12-L1: Small disc bulge. No significant spinal canal or neural foraminal narrowing. L1-2: No significant spinal canal or neural foraminal narrowing. L2-3: Diffuse disc bulge and bilateral facet arthrosis. Minimal spinal canal stenosis, unchanged. Mild to moderate right greater than left neural foraminal narrowing, unchanged. L3-4: Postsurgical changes. Decompressed spinal canal. Diffuse disc bulge and bilateral facet arthrosis. Moderate to severe right and moderate left neural foraminal narrowing with the disc abutting the right exiting L3 nerve roots, progressed on the right. L4-5: Postsurgical changes. Decompressed spinal canal. Moderate to severe right and moderate left neural foraminal narrowing with the disc abutting the exiting L4 nerve roots bilaterally, progressed from prior. L5-S1: Sequelae left hemilaminectomy. Diffuse disc bulge, prominent dorsal epidural fat, and left greater than right facet arthrosis. Mild to moderate spinal canal stenosis, unchanged. Moderate left and mild right neural foraminal narrowing with the disc abutting the exiting L5 nerve roots bilaterally, also unchanged. The paravertebral soft tissues are otherwise unremarkable. IMPRESSION: -Postsurgical changes from L3 to L5 decompressive laminectomies. There is moderate to severe right and moderate left neural foraminal narrowing at these levels with the disc abutting the exiting L3 and L4 nerve roots bilaterally. -At L5-S1, there is unchanged mild to moderate spinal canal stenosis and moderate left and mild right neural foraminal narrowing with the disc abutting the exiting L5 nerve roots bilaterally. -Additionally, progressive neural foraminal narrowing at L3-4 and L4-5, now moderate to severe on the right. 06/28/24 XR/XR lumbar spine 2-3 5 nonrib-bearing lumbar-type vertebral bodies. Osteopenia which decreases sensitivity for fracture evaluation. Levocurvature of the mid lumbar spine. Status post vertebral augmentation of T12. Potential superior endplate compression deformity along L4. Correlation with point tenderness. Moderate multilevel degenerative changes with disc space narrowing, endplate sclerosis, osteophyte formation, and facet arthropathy. Vertebral body heights and disc spaces are maintained. Posterior elements are intact. Paraspinal soft tissues are unremarkable. Atherosclerotic calcifications of the abdominal aorta. Surgical clips in the right upper abdomen. Pelvic phleboliths are noted. Fecal loading visualized colon. IMPRESSION: 1. Osteopenia which decreases sensitivity for fracture evaluation. 2. Levocurvature of the mid lumbar spine. 3. Status post vertebral augmentation of T12. 4. Potential superior endplate compression deformity along L4. Correlation with point tenderness. 5. Moderate multilevel degenerative changes. Assessment & Plan Assessment & Plan (1) Lumbar radiculopathy: Code(s): M54.16 - Radiculopathy, lumbar region Category: Medical Plan MRI reviewed, results as per above Referral placed to neuro spine for evaluation Continue with gabapentin and Tylenol as needed. Discuss other options for medications but patient declines. All questions and concerns answered, patient agrees with the plan. Follow up to a neuro spine eval, sooner if needed Orders: Referrals Neuro Spine Referral M54.16 - Radiculopathy, lumbar region, M96.1 - Postlaminectomy syndrome, not elsewhere classified Coding Level of Care Code Tele Est Pt Level 3 (22828) Complex EM visit Add On G2211 Diagnoses Lumbar radiculopathy M54.16
[2024-08-03 13:52] VITALS: BMI 36.1
== END 2024-08-03 13:45 | disposition home or self-care (01) ==
PROVIDERS: PCP Internal Medicine; Visit Provider Registered Nurse Emergency
DX: M54.16 Radiculopathy, lumbar region (principal)
CPT/HCPCS: 99213; G2211

== ENCOUNTER → 2024-08-03 13:08 | Outpatient (BNVA) | payer OTHER, SELFPAY | PROVIDERS: PCP Internal Medicine; Visit Provider Registered Nurse Emergency ==

== ENCOUNTER 2024-08-13 12:43 | Outpatient (AMB) | payer OTHER, SELFPAY ==
--- NOTE | 2024-08-13 13:08 | HO.SPINEOV ---
Intake Visit Reasons: LBP Intake Note: Ms. Armendariz is here today c/o low back pain. Safe And Vault Service Mechanic Required: Yes Safe And Vault Service Mechanic Services: Safe And Vault Service Mechanic Present Allergies acetaminophen [From PERCOCET] Allergy (Mild, Verified 08/03/24 13:28) RASH codeine [CODEINE] Allergy (Mild, Verified 08/03/24 13:28) Rash morphine [MORPHINE] Allergy (Mild, Verified 08/03/24 13:28) Hallucinations oxycodone [Percocet] Allergy (Mild, Verified 08/03/24 13:28) Hives tramadol Adverse Reaction (Severe, Verified 08/03/24 13:28) Headache Assessment & Plan Assessment & Plan (1) Lumbar radiculopathy: Code(s): M54.16 - Radiculopathy, lumbar region Category: Medical Plan Dear ISAC Matthew, Thank you for referring Joan to our office today. She is a pleasant 79-year-old female who comes in today with a chief complaint of low back pain and shooting pain to her right lateral thigh. When describing the radiation of her pain she states it starts in her low back wraps around her right hip and shoots down the lateral aspect of her right thigh terminating before the right knee. She reports associated numbness in this area where the shooting pains occur. She states this has been going on for the past 3-4 months. She is unable to identify an inciting incident for this pain. She reports that she has been to physical therapy since onset, but states it was too painful for her to engage. She has not attempted cortisone injections as of yet. She is unable to identify any positional changes that worsen or alleviate her pain. She has tried Tylenol, ibuprofen, pain creams, and pain patches without any significant relief of her pain. She is currently taking prescribed gabapentin to help alleviate the pain, however she does not enjoy taking it as it sedates her. She does report a pertinent past medical history of L3-[address] Dave at [facility]. She is unsure when this was done, but states it was definitely more than 10 years ago. PMH: Osteopenia, asthma, rheumatoid arthritis, peripheral artery disease, hypertension, seasonal allergies, GERD. Remote history of a blood clot in her right leg back in 1971. No blood thinners. History of cholecystectomy, appendectomy, left shoulder repair. Social hx: The patient does not smoke, reports no substance use. Medications: Acetaminophen, albuterol, carvedilol, vitamin D3, cyclobenzaprine, fluticasone, folic acid, gabapentin, levothyroxine, lidocaine, losartan, methocarbamol, methotrexate, montelukast, omeprazole, prednisone. Allergies: Percocet, codeine, tramadol. Physical exam: On examination Joan has 5/5 strength in her upper and lower extremities but does elicit pain to bilateral iliopsoas testing. I was not able to adequately obtain reflex testing from the patient as she was unable to relax fully. Some loss of sensation noted over right lateral thigh. (-) South's, (-) clonus, (-) bilateral straight leg raise. She ambulates with the assistance of a cane. She is unable to climb up onto the examination table as she states it is too painful for her to do so. Her examination was completed in the exam room chair. Imaging review: MRI of the lumbar spine completed here at [facility] shows diffuse spondylosis of the lumbar spine. There is a previous kyphoplasty of T12. There is evidence of a prior lumbar decompression from L3-5. There is severe right-sided foraminal stenosis at L3-4, and L4-5. There is a lesser degree of right sided foraminal stenosis at these levels as well. In addition to this there is severe left-sided foraminal stenosis at L5-S1. Impression: Joan is a pleasant 79-year-old female who comes in today with a chief complaint of low back pain and shooting pain down her right lower extremity. She states this has been ongoing for the last 3-4 months and is causing her quite a deal of distress. Her disclosed radicular pain matches what we see on her imaging in regards to the right-sided stenosis at L3-4, L4-5. In his impacting her activities of daily living and severely restricting her mobility. Based on her MRI imaging it looks like her decompression may have been unilateral on the left. I would like to obtain her operative report from [facility] to find out exactly what was done. I think she may be a good candidate for a right-sided approach lumbar decompression at L3-5. I will need to review this case with Dr. Sosa, and obtain her operative reports. I will call the patient back after I am able to do this. Thank you for allowing us to care for your patient. The total time spent with this visit with this patient was 45 minutes reviewing history, physical exam, MRI imaging review, and implementation of treatment plan or further diagnostic testing Lon Sosa MD,PhD [facility] Coding Level of Care Code New Pt Level 4 (73632) Diagnoses Lumbar radiculopathy M54.16
== END 2024-08-13 14:52 | disposition home or self-care (01) ==
PROVIDERS: PCP Internal Medicine; Referring Provider Registered Nurse Emergency; Visit Provider Physician Assistant
DX: M54.16 Radiculopathy, lumbar region (principal)
CPT/HCPCS: 99204

== ENCOUNTER → 2024-08-13 12:43 | Outpatient (BNVA) | payer OTHER, SELFPAY | PROVIDERS: PCP Internal Medicine; Visit Provider Physician Assistant | DX: M54.16 Radiculopathy, lumbar region (principal); M85.80 Other specified disorders of bone density and structure, unspecified site; M06.9 Rheumatoid arthritis, unspecified | CPT/HCPCS: 99202 ==

== ENCOUNTER 2024-09-28 10:06 | Outpatient (AMB) | payer OTHER, SELFPAY ==
--- NOTE | 2024-09-28 10:33 | A.OFFVIS_ITS ---
Vital Signs 09/28/24 10:35 Height 4 ft 11 in Weight 177 lb BMI 35.7 BP 208/80 H Blood Pressure Location Lt brachial Position Sitting Respiration 15 Pulse 76 Pulse Source Pulse Oximeter Pulse Oximetry (%) 97 Oxygen Delivery Method Room Air Intake Visit Reasons: Radiculopathy/eval for right L3 & L4 dx block Intake Note: Pt's BP is grossly elevated - she states she only took half of her BP meds this AM Customs Compliance Analyst Required: Yes Customs Compliance Analyst Name: Digna [id number] Allergies acetaminophen [From PERCOCET] Allergy (Mild, Verified 09/28/24 10:38) RASH codeine [CODEINE] Allergy (Mild, Verified 09/28/24 10:38) Rash morphine [MORPHINE] Allergy (Mild, Verified 09/28/24 10:38) Hallucinations oxycodone [Percocet] Allergy (Mild, Verified 09/28/24 10:38) Hives tramadol Adverse Reaction (Severe, Verified 09/28/24 10:38) Headache Medication List - Last Reconciled 09/28/24 by Alison Majano LPN acetaminophen ER (Tylenol Arthritis Pain) 650 mg PO Q12H albuterol sulfate 2.5 mg (3 mL) inhalation Q4-6H PRN albuterol sulfate 90 mcg/actuation (ProAir HFA) 2 puffs inhalation Q4-6H PRN back brace As directed carvedilol 6.25 mg PO BID cholecalciferol (vitamin D3) 125 mcg PO DAILY cyclobenzaprine 10 mg PO TID PRN cyclobenzaprine 10 mg PO Q8H PRN 10 days fluticasone propion-salmeterol 115-21 mcg/actuation (Advair HFA) 2 puffs inhalation Q12H 30 days folic acid 1 mg PO DAILY gabapentin 100 mg PO TID inhalational spacing device As directed levothyroxine 25 mcg PO DAILY lidocaine 5% 1 patch topical DAILY losartan 100 mg PO DAILY methocarbamol 500 mg PO TID PRN methotrexate sodium 15 mg PO QWEEK montelukast 10 mg PO QPM nebulizers As directed omeprazole mg PO prednisone 40 mg (2 x 20 mg) PO DAILY HPI HPI Radiculopathy/eval for right L3 & L4 dx block: Details: 79-year-old female who presents today to the office for a lumbar radiculopathy. She was referred by Dr. Sosa's team for test injection. She complains of low back pain and shooting pain to her right lateral thigh. When describing the radiation of her pain, she states it starts in her low back, wraps around her right hip, and shoots down the lateral aspect of her right thigh, terminating before the right knee. She states this has been going on for the past 3-4 months. She reports associated numbness in this area where the shooting pains occur. She is unable to identify an inciting incident for this pain. She is unable to identify any positional changes that worsen or alleviate her pain. She does report a pertinent past medical history of L3-[address] completed [address] Dr[address] Dave at [facility]. She is unsure when this was done, but states it was definitely more than 10 years ago. She reports that she has been to physical therapy since onset but states it was too painful for her to engage. She has not attempted cortisone injections as of yet. She has tried Tylenol, ibuprofen, pain creams, and pain patches without any significant relief of her pain. She is currently taking prescribed gabapentin to help alleviate the pain; however, she does not enjoy taking it as it sedates her. [facility] Medical History Pleural effusion Cellulitis Limb swelling Chest pain Asthma Chronic allergic rhinitis Atelectasis of left lung Family History Father Lung cancer Mother Throat cancer Social History Patient Tobacco Use Status: Former Tobacco user Tobacco use type: Cigarette Years Smoked: 4 years Review of Systems Const All systems reviewed & are unremarkable except as noted in HPI and below Physical Exam Vital Signs: Last Vital Signs Pulse 76 09/28/24 10:35 Resp 15 09/28/24 10:35 BP 208/80 H 09/28/24 10:35 Pulse Ox 97 09/28/24 10:35 Oxygen Delivery Method Room Air 09/28/24 10:35 BMI result Body Mass Index 35.7 General: Appears afebrile. Alert and oriented. Mood and affect appropriate. Follows and participates in conversation appropriately. Respiratory effort is unlabored. Able to transition from sit to stand unassisted. Ambulates with bilaterally normal heel strike and toe off. Right straight leg raise is positive. Results Reviewed Results Reviewed: No imaging is available for review. Assessment & Plan Assessment & Plan (1) Lumbar radiculopathy: Code(s): M54.16 - Radiculopathy, lumbar region Category: Medical (2) Post laminectomy syndrome: Code(s): M96.1 - Postlaminectomy syndrome, not elsewhere classified Category: Medical Plan We will schedule her for a right L3-4 selective nerve root block. Discussed the risks and benefits of the procedure with the patient in detail. All questions were answered. The patient is on board with the plan. Justification for interventional therapy: ? Patient with average pain > 6/10 ? Patient has exhausted conservative therapy physical therapy and oral medications. ? Patient unable to tolerate physical therapy due to pain. . Patient has a good understanding of their pain condition and has appropriate mental and social support. Scribed for Dr. Diamond by Francisco Trent, medical instrument technician, on 09/28/2024. I, Dr. Diamond, have personally reviewed and agree with the information entered by the scribe. Coding Level of Care Code New Pt Level 4 (60164) Diagnoses Lumbar radiculopathy M54.16 Post laminectomy syndrome M96.1
[2024-09-28 10:35] VITALS: BP 208/80; PULSE 76; RESP 15; O2SAT 97; BMI 35.7
== END 2024-09-28 11:05 | disposition home or self-care (01) ==
PROVIDERS: PCP Internal Medicine; Visit Provider Internal Medicine
DX: M54.16 Radiculopathy, lumbar region (principal); M96.1 Postlaminectomy syndrome, not elsewhere classified
CPT/HCPCS: 99204

== ENCOUNTER → 2024-09-28 10:06 | Outpatient (BNVA) | payer OTHER, SELFPAY | PROVIDERS: PCP Internal Medicine; Visit Provider Internal Medicine | DX: M54.16 Radiculopathy, lumbar region (principal); M96.1 Postlaminectomy syndrome, not elsewhere classified | CPT/HCPCS: 99202 ==

== ENCOUNTER 2024-11-01 09:01 | Outpatient (REF) | payer OTHER, SELFPAY ==
--- NOTE | ~2024-11-01 | FL_ITS ---
EXAMINATION: FL GUIDANCE ONLY HISTORY: M54.16 - Radiculopathy, lumbar region COMPARISON: None available. TECHNIQUE: Fluoroscopy time: 0.2 minutes. Cumulative Dose: 6.31 mGy. DAP: 0.0328 uGy-m2 (microgray-meter squared). Images: 4. FINDINGS: Images demonstrate a probe directed toward a lumbar vertebral body. FL/FL guidance in treatment room IMPRESSION: Fluoroscopy during procedure. Please see procedure report for additional information. Electronically signed by: Bony Ricks MD 11/02/2024 01:47 PM MAS[facility]
== END 2024-11-01 09:02 | disposition home or self-care (01) ==
LOC: CF 09:01
PROVIDERS: PCP Internal Medicine; Visit Provider Internal Medicine
DX: M54.16 Radiculopathy, lumbar region (principal)
CPT/HCPCS: 64483; 64484; J2003; Q9967

== ENCOUNTER 2024-11-01 12:19 | Outpatient (AMB) | payer OTHER, SELFPAY ==
[2024-11-01 12:32] VITALS: BP 150/90; PULSE 78; O2SAT 99
--- NOTE | 2024-11-01 12:32 | MHC.OFFVIS ---
Vital Signs 11/01/24 12:32 11/01/24 13:08 BP 150/90 H 144/88 H Blood Pressure Location Lt brachial Lt brachial Position Sitting Sitting Pulse 78 70 Pulse Source Pulse Oximeter Pulse Oximeter Pulse Oximetry (%) 99 100 Oxygen Delivery Method Room Air Room Air Intake Visit Reasons: Right L3-L4 selective nerve root block Allergies acetaminophen [From PERCOCET] Allergy (Mild, Verified 09/28/24 10:38) RASH codeine [CODEINE] Allergy (Mild, Verified 09/28/24 10:38) Rash morphine [MORPHINE] Allergy (Mild, Verified 09/28/24 10:38) Hallucinations oxycodone [Percocet] Allergy (Mild, Verified 09/28/24 10:38) Hives tramadol Adverse Reaction (Severe, Verified 09/28/24 10:38) Headache HPI HPI Right L3-L4 selective nerve root block: Details: Patient presents for scheduled procedure. Denies any recent cough, cold, infection, fever or other significant changes in medical history since last office visit. [facility] Medical History Pleural effusion Cellulitis Limb swelling Chest pain Asthma Chronic allergic rhinitis Atelectasis of left lung Family History Father Lung cancer Mother Throat cancer Social History Patient Tobacco Use Status: Former Tobacco user Tobacco use type: Cigarette Years Smoked: 4 years Physical Exam Vital Signs: Last Vital Signs Pulse 78 11/01/24 12:32 BP 150/90 H 11/01/24 12:32 Pulse Ox 99 11/01/24 12:32 Oxygen Delivery Method Room Air 11/01/24 12:32 Office Procedures Details: Selective nerve root block, right L3 After obtaining written consent, pre-procedure blood pressure and heart rate were stable and recorded in the nursing record. The patient was placed in the prone position on the fluoroscopy table. The lumbosacral area was prepped with chloraprep, allowed to dry and draped in sterile fashion. Using fluoroscopy, the skin overlying our target was anesthetized with 0.5% lidocaine. A 22 gauge 3.5 inch spinal needle was advanced to the safe triangle in the upper pole of the right L3 foramen. No paresthesias were elicited with needle placement and aspiration was negative for blood and CSF. Correct needle position was confirmed with approximately 1 ml contrast dye (Omnipaque 180 mg/ml) injected under real-time fluoroscopy. No evidence of vascular or intrathecal uptake was seen and there was both epidural and peripheral spread of the contrast agent. 1 ml containing 1% lidocaine was slowly injected. The needle was flushed and removed. the same procedure was repeated for the remaining levels. The skin was cleansed and a sterile bandages were applied. The patient tolerated the procedure well and no complications were encountered. Following the procedure the patient's vital signs were stable. The patient was discharged home in good condition with post-procedural instructions. Time Out: Immediately prior to the procedure, the following was verbally confirmed that there is a signed consent form and that the correct patient, planned procedure, site and side are consistent with documentation and that necessary equipment and/or blood products are available prior to the start of the case. Complications: none EBL: <5 cc 27489 - Lumbar/Sacral 04331 - Lumbar/Sacral, additional level Procedure code (CPT) selection complete Assessment & Plan Assessment & Plan (1) Lumbar radiculopathy: Code(s): M54.16 - Radiculopathy, lumbar region Category: Medical Plan Patient is status post right L3 diagnostic selective nerve root block. Patient tolerated procedure well and was discharged home in stable condition with discharge instructions. All questions were answered. We will follow-up via telephone or in clinic to assess response to therapy. A follow-up appointment was made during today's visit. Orders: Orders FL guidance in treatment room Today M54.16 - Radiculopathy, lumbar region Coding Level of Care Code Procedure Only Diagnoses Lumbar radiculopathy M54.16 CPT Codes Transforaminal Epidural Steroid Inj - TESI 3: 80872 - Lumbar/Sacral ([id number]) Transforaminal Epidural Steroid Inj - TESI 4: 99050 - Lumbar/Sacral, additional level ([id number])
[2024-11-01 13:08] VITALS: BP 144/88; PULSE 70; O2SAT 100
== END 2024-11-01 13:05 | disposition home or self-care (01) ==
LOC: HO.PMCPRC 12:19
PROVIDERS: PCP Internal Medicine; Visit Provider Internal Medicine
DX: M54.16 Radiculopathy, lumbar region (principal)
CPT/HCPCS: 64483; 64484

== ENCOUNTER 2024-11-28 10:28 | Outpatient (AMB) | payer OTHER, SELFPAY ==
--- NOTE | 2024-11-28 10:39 | MHC.OFFVIS ---
Vital Signs 11/28/24 10:41 Height 4 ft 11 in Weight 177 lb BMI 35.7 BP 198/80 H Blood Pressure Location Lt brachial Position Sitting Respiration 16 Pulse 83 Pulse Source Pulse Oximeter Pulse Oximetry (%) 96 Oxygen Delivery Method Room Air Intake Visit Reasons: s/p Right L3-L3 SNRB Intake Note: Pt's BP grossly elevated - taken manually Grocery Cashier Required: Yes Grocery Cashier Services: Grocery Cashier Present Grocery Cashier Name: Tommy [id number] Allergies codeine [CODEINE] Allergy (Mild, Verified 11/28/24 10:47) Rash morphine [MORPHINE] Allergy (Mild, Verified 11/28/24 10:47) Hallucinations oxycodone [Percocet] Allergy (Mild, Verified 11/28/24 10:47) Hives tramadol Adverse Reaction (Severe, Verified 11/28/24 10:47) Headache Medication List - Last Reconciled 11/28/24 by Alison Majano LPN acetaminophen ER (Tylenol Arthritis Pain) 650 mg PO Q12H albuterol sulfate 2.5 mg (3 mL) inhalation Q4-6H PRN albuterol sulfate 90 mcg/actuation (ProAir HFA) 2 puffs inhalation Q4-6H PRN back brace As directed carvedilol 6.25 mg PO BID cholecalciferol (vitamin D3) 125 mcg PO DAILY cyclobenzaprine 10 mg PO TID PRN cyclobenzaprine 10 mg PO Q8H PRN 10 days fluticasone propion-salmeterol 115-21 mcg/actuation (Advair HFA) 2 puffs inhalation Q12H 30 days folic acid 1 mg PO DAILY gabapentin 100 mg PO TID inhalational spacing device As directed levothyroxine 25 mcg PO DAILY lidocaine 5% 1 patch topical DAILY losartan 100 mg PO DAILY methocarbamol 500 mg PO TID PRN methotrexate sodium 15 mg PO QWEEK montelukast 10 mg PO QPM nebulizers As directed omeprazole mg PO HPI HPI s/p Right L3-L3 SNRB: Details: Certified certified court/medical interpreter used for this visit History of Present Illness The patient is an 79-year-old female presenting with a follow-up evaluation for chronic low back pain, managed through a diagnostic injection at the right L3 level conducted previously. The treating team aimed to ascertain whether surgical intervention would be beneficial. Post-injection, the patient experienced a notable 70-80% reduction in pain severity for approximately one day. She described the discomfort as mild during this period; however, her pain exacerbated upon physical activity, like using stairs, and returned to baseline levels shortly afterward. The goal of the follow-up was to evaluate the benefit of this temporary pain relief in guiding surgical decisions. Consequently, referrals will be made for further assessment by the spine surgical team. Pain Description - Onset and Timing: Chronic pain; transient relief post-injection on - Quality and Character: Significant reduction in severity with mild discomfort post-injection - Primary Location: Low back, L3 level - Radiation: No specific areas mentioned - Exacerbating Factors: Physical activity, particularly stair use - Relieving Factors: Diagnostic injection provided temporary relief Physical Exam Appears afebrile. Alert and oriented. Mood and affect appropriate. Follows and participates in conversation appropriately. Respiratory effort is unlabored. Able to transition from sit to stand unassisted. Ambulates with bilaterally normal heel strike and toe off. Able to stand and walk on toes and heels. Results - Tests and Diagnostics - Diagnostic injection at the right L3 level resulted in temporary 70-80% pain relief for one day. Pain Management - Affect: Temporary mood improvement noted with reduced discomfort for one day - Analgesia: Significant pain reduction post-injection, estimated at 70-80% - Adverse Effects: No adverse effects discussed - Activities of Daily Living: Pain interferes with activities, particularly stairs; functional goal to maintain relief levels post-surgery - Aberrant Drug Related Behaviors: None reported [facility] Medical History Pleural effusion Cellulitis Limb swelling Chest pain Asthma Chronic allergic rhinitis Atelectasis of left lung Family History Father Lung cancer Mother Throat cancer Social History Patient Tobacco Use Status: Former Tobacco user Tobacco use type: Cigarette Years Smoked: 4 years Physical Exam Vital Signs: Last Vital Signs Pulse 83 11/28/24 10:41 Resp 16 11/28/24 10:41 BP 198/80 H 11/28/24 10:41 Pulse Ox 96 11/28/24 10:41 Oxygen Delivery Method Room Air 11/28/24 10:41 BMI result Body Mass Index 35.7 Assessment & Plan Assessment & Plan (1) Lumbar radiculopathy: Code(s): M54.16 - Radiculopathy, lumbar region Category: Medical Plan Plan A referral back to the spine surgery team is indicated following the patient's notable short-term relief from the right L3 diagnostic injection. The spine surgery colleagues will assess the benefits of proceeding with surgical intervention, given the partial success of pain relief achieved. Patient was informed and verbally consented to the use of an ambient scribe for clinic note documentation during this visit. Discussion Notes I discussed with the patient the temporary benefits observed following the right L3 diagnostic injection. The primary focus of our conversation was on the potential for surgical intervention to provide longer-term relief. Based upon the noticeable pain reduction for one day post-injection, I recommended referral back to the spine surgery team. I explained the process would involve further evaluation and planning for possible surgery if deemed suitable. The patient was amenable to returning for surgical discussions. The potential benefits of surgery, considering the injection results, were discussed, understanding that no definitive decisions could be made until further surgical assessment occurs. Patient Instructions - Expect a follow-up contact from the spine surgery clinic for further evaluation. - Consider noting any changes in pain levels or activities that worsen symptoms. - Prepare for potential discussions on surgical intervention based on the injection relief noted. Coding Level of Care Code Est Pt Level 3 (99033) Diagnoses Lumbar radiculopathy M54.16
[2024-11-28 10:41] VITALS: BP 198/80; PULSE 83; RESP 16; O2SAT 96; BMI 35.7
--- OUTSIDE RECORDS SUMMARY | 2024-11-28 12:15 | XMS_ITS | Encounter Summary ---
Author Organization [facility] Address [address] [place] [address] Care Team Providers Care Hobbing Machine Operator Name Role Phone Jeni Garcia MD Primary Care Provider + [phone] Encounter Details Date Type Department Care Team (Late st Contact Info) Description 10/31/2024 Telephone Gastroenterology - [address] [place] [address] Emma Leonard MA Social History Tobacco Use Types Packs/Day Years Used Date Smoking Tobacco: Never Smokeless Tobacco: Never Alcohol Use Standard Drinks/Week Comments Never 0 (1 standard drink = 0.6 oz pur e alcohol) Comments Unknown Sex and Gender Information Value Date Recorded Sex Assigned at Not on file Legal Sex Female 2:52 AM EST Gender Identity Not on file Sexual Orientation Not on file documented as of this encounter Progress Notes * Jessy Aguila MA - 11/01/2024 11:28 AM EST Spoke to pt, results give, bx all clear, no Sanchez's. Cont taking meds if not working schedule a f/u. Pt scheduled a f/u because meds are not working. * Emma Leonard MA - 10/31/2024 2:24 PM EST Pt wants the endoscopy results from 24 documented in this encounter Plan of Treatment Upcoming Encounters Date Type Department Care Team (Late st Contact Info) Description 12/05/2024 11:00 AM EST Office Visit Orthopedic Surgery - [place] [id number] [address] [facility] [address] [place] [id number] Lazaro Saleh MD [address] [facility] [address] [place] [address] documented as of this encounter Visit Diagnoses Not on filedocumented in this encounter Care Teams Hobbing Machine Operator Relationship Specialty Start Date End Date Jeni Garcia MD [address] [address] PCP - General 05/19/21 documented as of this encounter
--- OUTSIDE RECORDS SUMMARY | 2024-11-28 12:15 | XMS_ITS | Encounter Summary ---
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 Social History Tobacco Use Types Packs/Day Years [...] on file documented as of this encounter Plan of Treatment Upcoming Encounters Date Type Department Care Team (Late st Contact Info) Description 12/05/2024 11:00 AM EST Office Visit Orthopedic Surgery - [place] 250 175 [facility] 250 [place] [address] Lazaro Saleh MD 175 [facility] 250 [place] [address] documented as of this encounter Procedures Procedure Name Priority Date/Time Associated Diagnosis Comments TISSUE EXAM Routine 10/03/2024 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 Distal esophagus, biopsy: Esophageal squamous mucosa with reactive epithelial changes including focal basilar hyperplasia; no intraepithelial eosinophils are identified. Gastric cardiac type mucosa with chronic, focally active inflammation. No intestinal metaplasia and no dysplasia identified. B. Mid-esophagus, biopsy: Esophageal squamous mucosa without diagnostic histopathologic change. No intraepithelial eosinophils and no glandular epithelium identified. 10/05/2024 12:26 PM [facility] Clinical Information Heartburn,esophag eal reflux symptoms that persist despite appropriate therapy Finding:R/O oliver's 10/05/2024 12:26 PM [facility] Gross Description A. Esophagus, distal esophagus biopsy: Labeled distal esophagus biopsy . Received in formalin is a 0.3 cm irregular christian mucosal tissue fragment which is wrapped in paper and submitted in toto in one cassette, one piece, multiple levels on one slide. B. Esophagus, mid esophagus biopsy: Labeled mid esophagus biopsy . Received in formalin is a 0.3 cm irregular christian-white mucosal tissue fragment which is wrapped in paper and submitted in toto in one cassette, one piece, multiple levels on one slide. 10/05/2024 12:26 PM EST [facility] Disclaimer Unless otherwise specified, all tissue is 10% NB formalin fixed and paraffin embedded. 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
--- OUTSIDE RECORDS SUMMARY | 2024-11-28 12:15 | XMS_ITS | Encounter Summary ---
Author Organization [facility] Address [address] [place] [address] Care Team Providers Care Journeyman Pipe Fitter Name Role Phone Jeni Garcia MD Primary Care Provider + [phone] Reason for Visit * Reason Comments Pain Encounter Details Date Type Department Care Team (Latest Contact Info) Description 11/15/2024 11:00 AM EST Office Visit Orthopedic Surgery - [place] [address] [address] Eloisa Torres NP [address] [address] Post-traumatic osteoarthritis of left knee (Primary Dx); History of total right knee replacement (TKR); Personal history of DVT (deep vein thrombosis) Social History Tobacco Use Types Packs/Day Years [...] on file documented as of this encounter Last Filed Vital Signs Vital Sign Reading Time Taken Comments Blood Pressure - - Pulse - - Temperature - - Respiratory Rate - - Oxygen Saturation - - Inhaled Oxygen Concentration - - Weight 79.8 kg (176 lb) 11/15/2024 10:55 AM EST Height 149.9 cm (4' 11 ) 11/15/2024 10:55 AM EST Body Mass Index 35.55 11/15/2024 10:55 AM EST documented in this encounter Progress Notes * Eloisa Torres NP - 11/15/2024 11:00 AM EST [facility] Date: 11/15/24 CHIEF COMPLAINT: Pain of the Left Knee had concerns including Pain of the Left Knee. IDENTIFIER: Joan Armendariz is a 79 y.o. old female. Primary Care Physician: Jeni Garcia MD Montessori Lead Teacher: Yamil Pate #[id number] [facility] Joan Armendariz is a 79 y.o. year old female here today for evaluation of left knee pain. Left knee has been painful for years. She denies specific inciting event or injury. Does have history of arthroscopic knee surgery many many years ago. She endorses pain through the medial knee, pain at nighttime. Pain worsens with walking, bending, always pain . She uses Tylenol and gabapentin at home which helped not too much . She has tried topical Voltaren gel as well with minimal effect. She has had both gel and cortisone injections within the last year through her group tester office, Dr. Novak.Unfortunately she did not find much relief from these. History of right TKR with Dr. Adame approximately 6 years ago, seems to have done well no complaints regarding the right knee at present. No diabetes, states she sees a dentist, no metal allergy. History of DVT in 1971. Currently takes 1to be aspirin daily. ROS: 10 point ROS was reviewed with patient, pertinent positive and negative results are noted in the HPI. Patient Active Problem List Diagnosis Arthritis of carpometacarpal (CMC) joint of right thumb Asthma Sleep apnea Cellulitis Greater trochanteric pain syndrome Chronic low back pain Chronic obstructive pulmonary disease (CMS/HCC) CKD (chronic kidney disease), stage III (CMS/HCC) Class 1 obesity Fracture of vertebra due to osteoporosis with delayed healing GERD (gastroesophageal reflux disease) Hypothyroidism Meralgia paresthetica of right side Severe obesity (BMI 35.0-39.9) with comorbidity (CMS/HCC) Osteopenia Rheumatoid arthritis, adult (CMS/HCC) Sciatica associated with disorder of lumbar spine Tendinitis of right rotator cuff Hypertension Venous insufficiency of leg Vitamin D deficiency Past Surgical History: Procedure Laterality Date SHOULDER SURGERY Left 01/06/2023 PROCEDURE: HISTORICAL SHOULDER SURGERY; COMMENT: RTSA Current Outpatient Medications Medication Instructions acetaminophen (TYLENOL) 500 mg tablet Take 1 Tablet by mouth every 6 hours as needed. BIOTIN ORAL Take by mouth. carvediloL (COREG) 6.25 mg tablet TAKE 1 TABLET BY MOUTH WITH BREAKFAST AND EVENING MEAL cholecalciferol (VITAMIN D-3) 25 mcg (1,000 unit) capsule Take by mouth. famotidine (PEPCID) 40 mg tablet Take 40 mg by mouth daily. fluticasone propion-salmeteroL (ADVAIR HFA) 115-21 mcg/actuation inhaler Inhale 2 Puffs into the lungs 2 times daily. fluticasone propionate (FLONASE) 50 mcg/actuation nasal spray 2 Sprays by Each Nare route daily. folic acid (FOLVITE) 1 mg tablet Take 1 mg by mouth daily. gabapentin (NEURONTIN) 100 mg capsule Take 1 Capsule by mouth daily. hydroCHLOROthiazide (HYDRODIURIL) 25 mg tablet Take 25 mg by mouth daily. levothyroxine (SYNTHROID, LEVOTHROID) 50 mcg tablet Take 1 Tablet by mouth daily. losartan (COZAAR) 100 mg tablet Take 100 mg by mouth daily. methotrexate (Xatmep) 2.5 mg/mL Take by mouth. montelukast (SINGULAIR) 10 mg tablet Take 10 mg by mouth at bedtime. omeprazole (PriLOSEC) [address] capsule Take 20 mg by mouth daily. pantoprazole (PROTONIX) 40 mg, oral, 2 times daily, Do not crush, chew, or split. Allergies Allergen Reactions Codeine Dizziness Morphine Oxycodone-Acetaminophen Dizziness Other Reaction(s): Rash/Dermatitis Tramadol Social History Tobacco Use Smoking status: Never Smokeless tobacco: Never Substance Use Topics Alcohol use: Never Drug use: Never Physical Exam: BMI 36 Pain 7/10 Examination left knee, skin is intact without rashes or lesions. No erythema or warmth. Scant effusion. Range of motion 0-1 20, patient expresses considerable discomfort at end range of motion. Cruciate and collateral ligaments grossly intact. Notable sensitivity through the knee diffusely with increased tenderness over the medial joint line. Pain with patellar compression. No calf tenderness. Sensation circulation intact distally. Labs: No results found for: WBC , HCT , HGBA1C , NA , K , ALB , INR No results found for: CRP , ANAS , RF , URIC , LYME Imaging: Date of Visit: 11/15/2024 Reason for visit: Left knee pain Views: AP, Lateral, Sil[place], [place] left knee Findings: On AP view there is narrowing through the medial greater than lateral compartment of the left knee with subchondral sclerosis and small marginal osteophytes. Note of stable appearing right total knee replacement. Moderate degenerative changes seen through the patellofemoral compartment onsunrise view. No acute findings. Impression: Moderate osteoarthritis left knee. Assessment: 79-year-old female left knee pain related to moderate bordering severe osteoarthritis. History of right TKR with Dr. Adame. Sleep apnea, chronic low back pain, COPD, CKD, GERD, rheumatoid arthritis, hypertension, venous insufficiency, vitamin D deficiency, self-reported DVT in 1971. BMI 36. Plan: 1. Education -I reviewed my findings with the patient. She does have moderate degenerative changes through the left knee which have become increasingly bothersome for her. She also has quite sensitive around the left knee on exam. She is been using Tylenol, gabapentin, topical Voltaren gel with minimal effect. She has had injections within the last year also without lasting benefit. She would like to be considered for definitive treatment with left total knee replacement surgery. I did explain to her that she would need to consult with our surgeon and that she may have some increased risk factors due to history of DVT and considerable sensitivity around the left knee patient is understanding and would like to meet with Dr. Saleh. Additional recommendations as noted below. 2. Lifestyle -patient would benefit from weight loss, continue low impact activity to tolerance 3. Medications -continue current regimen 4. Rehabilitation -none today, could consider HEP versus formal PT 5. Imaging/Lab work-up -none 6. Bracing -none today 7. Procedures -none today 8. Follow-up -with Dr. Saleh as patient would like to discuss definitive treatment with left TKR Thank you for your referral. Karol Torres PUNCHBOARD ASSEMBLER 175 [facility], [address] [place] [address] W: [phone] F: [phone] Portions of this note were dictated utilizing the speech recognition software. Cosigned by Lazaro Saleh MD at 11/15/2024 11:59 AM EST documented in this encounter Plan of Treatment Upcoming Encounters Date Type Department Care Team (Late st Contact Info) Description 12/05/2024 11:00 AM EST Office Visit Orthopedic Surgery - [place] [address] [address] Lazaro Saleh MD [address] [address] documented as of this encounter Visit Diagnoses Diagnosis Post-traumatic osteoarthritis of left knee- Primary History of total right knee replacement (TKR) Personal history of DVT (deep vein thrombosis) Personal history of venous thrombosis and embolism documented in this encounter Historical Medications * This list may reflect changes made after this encounter. carvediloL (COREG) 6.25 mg tablet TAKE 1 TABLET BY MOUTH WITH BREAKFAST AND EVENING MEAL added in this encounter Care Teams Journeyman Pipe Fitter Relationship Specialty Start Date End Date Jeni Garcia MD 230 [facility] 1 [place] [address] PCP - General 05/19/21 documented as of this encounter
--- OUTSIDE RECORDS SUMMARY | 2024-11-28 12:15 | XMS_ITS | Encounter Summary ---
Author Organization [facility] Address [address] [place] [address] Care Team Providers Care Furniture Stainer Name Role Phone Jeni Garcia MD Primary Care Provider + [phone] Encounter Details Date Type Department Care Team (Late Contact Info) Description 11/14/2024 Telephone Gastroenterology - 299 [facility] 299 [facility] [address] [place] [address] Jessy Aguila MA Social History Tobacco Use Types Packs/Day [...] Progress Notes * Jessy Aguila MA - 11/14/2024 2:41 PM EST Last EGD/ path report, todays H&P faxed to Dr. Misael Santillan at [phone] documented in this encounter Plan of Treatment Upcoming Encounters Date Type Department Care Team (Late st Contact Info) Description 12/05/2024 11:00 AM EST Office Visit Orthopedic Surgery - [place] 250 175 [facility] 250 [place] [phone] Lazaro Saleh MD 175 [facility] 250 [place], [place] [phone] documented as of this encounter Visit Diagnoses Not on filedocumented in this encounter Care Teams Furniture Stainer Relationship Specialty Start Date End Date Jeni Garcia MD [address] [place] [phone] PCP - General 05/19/21 documented as of this encounter
--- OUTSIDE RECORDS SUMMARY | 2024-11-28 12:15 | XMS_ITS | Encounter Summary ---
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) Jeni Garcia MD [address] [place] [address] Phone: tel: fax: [facility] [address] [place] [address] Phone: tel: fax: Referral ID Status Reason Start Date Expiration Date V isits Requested Visits Authorized [id number] Closed Specialty Services Required 06/13/2024 06/13/2025 1 1 Encounter Details Date Type Department Care Team (Late st Contact Info) Description 06/13/2024 Orders Only [facility] [address] [place], [place] [phone] Jeni Garcia MD [address] [place], [place] [phone] Renal artery stenosis (CMS/HCC); Superior mesenteric artery stenosis (CMS/HCC); Celiac artery stenosis (CMS/HCC) Social History Tobacco Use Types Packs/Day Years Used Date Smoking Tobacco: Never Passive Smoke Exposure: Never Smokeless Tobacco: Never Alcohol Use Standard Drinks/Week Comments Never 0 (1 standard drink = 0.6 oz pur e alcohol) Depression Answer Date Recorded Patient Health Questionnaire-9 Score 0 11/16/2022 Housing Stability Answer Date Recorded What is your housing situation today? I have dimitry adams 12/12/[address] you li ve. Do you have problems with any of the following? None of the above 12/12/2023 Food Insecurity Answer Date Recorded Within the past 12 months, y ou worried that your food would run out before you got money to buy more: Never True 12/12/2023 Within the past 12 months,th e food you bought just didn't last and you didn't have enough money to get more: Never True Transportation Answer Date Recorded In the past 12 months, has l ack of transportation kept you from medical appts, meetings, work or from getting things needed for daily living? No 12/12/2023 Utilities Answer Date Recorded In the past 12 months, has t he electric, gas, oil or water company threatened to shut off services in your home? No 12/12/2023 Depression Answer Date Recorded Patient Health Questionnaire-2 Score 0 12/12/2023 Comments No Sex and Gender Information Value Date Recorded Sex Assigned at Female 08/16/2022 10:14 AM EDT Legal Sex Female 10:14 AM EDT Gender Identity Female 08/16/2022 10:14 AM EDT Sexual Orientation Straight 08/16/2022 10 :14 AM EDT documented as of this encounter Miscellaneous Notes * Result Encounter Note - Jeni Garcia MD - 06/13/2024 4:30 PM EDT Xrays on 06/28 done at ED, patient sent there from here, see note. Patient has appt with pain clinic. 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 [facility] ?[address] ?[place] [address] ?XRay Report ? Signed ? Patient: Joan Armendariz R ?MR#: [id number] ?? [id number] ? : 1945 ?Acct:[id number] ? Age/Sex: 79 / F ?ADM Date: 06/28/24 ? Loc: HO.ED ? Attending Dr: ? Ordering Physician: Geovanna Austin ?? Date of Service: 06/28/24 ?? Procedure(s): XR lumbar spine 2-3V ?? Accession Number(s): [id number] ? cc: Jeni Garcia MD; Geovanna Austin ? EXAMINATION: ?? XR LUMBOSACRAL SPINE ? CLINICAL INFORMATION: ?? Low back pain ? COMPARISON: ?? None available. ? TECHNIQUE: ?? Three views of the lumbosacral spine. ? FINDINGS: ?? 5 nonrib-bearing lumbar-type vertebral bodies. Osteopenia which ?? decreases sensitivity for fracture evaluation. Levocurvature of the mid ?? lumbar spine. Status post vertebral augmentation of T12. Potential ?? superior endplate compression deformity along L4. Correlation with ?? point tenderness. Moderate multilevel degenerative changes with disc ?? space narrowing, endplate sclerosis, osteophyte formation, and facet ?? arthropathy. Vertebral body heights and disc spaces are maintained. ?? Posterior elements are intact. Paraspinal soft tissues are ?? unremarkable. Atherosclerotic calcifications of the abdominal aorta. ?? Surgical clips in the right upper abdomen. Pelvic phleboliths are ?? noted. Fecal loading visualized colon. ? XR/XR lumbar spine 2-3V ?? IMPRESSION: ?? 1. ??Osteopenia which decreases sensitivity for fracture evaluation. ?? 2. ??Levocurvature of the mid lumbar spine. ?? 3. ??Status post vertebral augmentation of T12. ?? 4. ??Potential superior endplate compression deformity along L4. ?? Correlation with point tenderness. ?? 5. ??Moderate multilevel degenerative changes. ? Electronically signed by: ??Julia Ellis MD ??06/28/2024 04:25 PM EDT RP ? Dictated By: ?Julia Ellis MD ? Signed By: ?<Electronically signed by Julia Ellis MD in OV> ? 06/28/24 1625 ? DD/ 1600 ? TD/TT: 06/28/24 1615 ? Digital Imaging Specialist: ? Procedure Note [place], Image - 06/28/2024 [place] [address] XRay Report Signed Patient: Joan Armendariz RMR#: [id number] 594 : 3Acct:[id number] Age/Sex: 79 / FADM Date: 06/28/24 Loc: HO.ED Attending Dr: Ordering Physician: Geovanna Austin Date of Service: 06/28/24 Procedure(s): XR lumbar spine 2-3V Accession Number(s): [id number] cc: Jeni Garcia MD; Geovanna Austin EXAMINATION: XR LUMBOSACRAL SPINE CLINICAL INFORMATION: Low back pain COMPARISON: None available. TECHNIQUE: Three views of the lumbosacral spine. FINDINGS: 5 nonrib-bearing lumbar-type vertebral bodies. Osteopenia which decreases sensitivity for fracture evaluation. Levocurvature of the mid lumbar spine. Status post vertebral augmentation of T12. Potential superior endplate compression deformity along L4. Correlation with point tenderness. Moderate multilevel degenerative changes with disc space narrowing, endplate sclerosis, osteophyte formation, and facet arthropathy. Vertebral body heights and disc spaces are maintained. Posterior elements are intact. Paraspinal soft tissues are unremarkable. Atherosclerotic calcifications of the abdominal aorta. Surgical clips in the right upper abdomen. Pelvic phleboliths are noted. Fecal loading visualized colon. XR/XR lumbar spine 2-3V IMPRESSION: 1. Osteopenia which decreases sensitivity for fracture evaluation. 2. Levocurvature of the mid lumbar spine. 3. Status post vertebral augmentation of T12. 4. Potential superior endplate compression deformity along L4. Correlation with point tenderness. 5. Moderate multilevel degenerative changes. Electronically signed by: Julia Ellis MD 06/28/2024 04:25 PM EDT RP Dictated By: Julia Ellis MD Signed By: <Electronically signed by Julia Ellis MD in OV> 06/28/24 1625 DD/ 1600 TD/TT: 06/28/24 1615 Digital Imaging Specialist: [facility] External Provider IMG XR PROCEDURES Final Result * XR Chest 1 View (06/28/2024 12:52 PM EDT) Anatomical Region Laterality Modality Chest Radiographic Tamiko ging 06/28/2024 12:5 2 PM EDT Narrative 06/28/2024 3:02 PM EDT ? [facility] ?[address] ?[place] [address] ?XRay Report ? Signed ? Patient: Armendariz,Joan R ?MR#: [id number] ?? [id number] ? : 1945 ?Acct:[id number] ? Age/Sex: 79 / F ?ADM Date: 09/12/24 ? Loc: HO.ED ? Attending Dr: ? Ordering Physician: Geovanna Austin ?? Date of Service: 06/28/24 ?? Procedure(s): XR chest 1V ?? Accession Number(s): [id number] ? cc: Jeni Garcia MD; Geovanna Austin ? EXAMINATION: ?? XR CHEST ? CLINICAL INFORMATION: ?? Chest pain ? COMPARISON: ?? 05/04/2004 ? TECHNIQUE: ?? Frontal view of the chest was obtained. ? FINDINGS: ?? Linear pleural parenchymal scarring in the left midlung and left lung ?? base. Normal lung volumes. No consolidation, pneumothorax, or pleural ?? effusion. Cardiac and mediastinal contours are normal. Atherosclerotic ?? calcifications in the thoracic aorta. Calcification at the mitral ?? annulus. ? Degenerative spondylosis in the thoracic spine. Left reverse total ?? shoulder arthroplasty is noted. ? XR/XR chest 1V ?? IMPRESSION: ?? No acute pulmonary findings. Linear pleural parenchymal scarring in the ?? left midlung and left lung base. ? Electronically signed by: ??Franklin Lepe MD ??06/28/2024 02:59 PM EDT RP ? Dictated By: ?Franklin Lepe MD ? Signed By: ?<Electronically signed by Franklin Lepe MD in OV> ? 06/28/24 1459 ? DD/ 1252 ? TD/TT: 06/28/24 1259 ? Digital Imaging Specialist: RK ? Procedure Note [place], Image - 06/28/2024 [place] [address] XRay Report Signed Patient: Joan Armendariz RMR#: [id number] 594 : 3Acct:[id number] Age/Sex: 79 / FADM Date: 06/28/24 Loc: HO.ED Attending Dr: Ordering Physician: Geovanna Austin Date of Service: 06/28/24 Procedure(s): XR chest 1V Accession Number(s): [id number] cc: Jeni Garcia MD; Geovanna Austin EXAMINATION: XR CHEST CLINICAL INFORMATION: Chest pain COMPARISON: 05/04/2004 TECHNIQUE: Frontal view of the chest was obtained. FINDINGS: Linear pleural parenchymal scarring in the left midlung and left lung base. Normal lung volumes. No consolidation, pneumothorax, or pleural effusion. Cardiac and mediastinal contours are normal. Atherosclerotic calcifications in the thoracic aorta. Calcification at the mitral annulus. Degenerative spondylosis in the thoracic spine. Left reverse total shoulder arthroplasty is noted. XR/XR chest 1V IMPRESSION: No acute pulmonary findings. Linear pleural parenchymal scarring in the left midlung and left lung base. Electronically signed by: Franklin Lepe MD 06/28/2024 02:59 PM EDT RP Dictated By: Franklin Lepe MD Signed By: <Electronically signed by Franklin Lepe MD in OV> 06/28/24 1459 DD/ 1252 TD/TT: 06/28/24 1259 Digital Imaging Specialist: BETH [facility] External Provider IMG XR PROCEDURES Final Result documented in this encounter Visit Diagnoses Diagnosis Renal artery stenosis (CMS/HCC) Atherosclerosis of renal artery Superior mesenteric artery stenosis (CMS/HCC) Stricture of artery Celiac artery stenosis (CMS/HCC) Stricture of artery documented in this encounter Additional Health Concerns Assessment Noted Time PHQ-9 Depression Total Score: 0 11/16/19 23 10:53 AM EST documented as of this encounter Care Teams Director Of Business Systems Relationship Specialty Start Date End Date Jeni Garcia MD [address] [place] [id number] PCP - General Family Medicine 12/16/15 documented as of this encounter
--- OUTSIDE RECORDS SUMMARY | 2024-11-28 12:15 | XMS_ITS | Continuity of Care Document ---
Author Organization [facility] Address [address] [place] [address]- Care Team Providers Care Maintenance Chief Name Role Phone Jose CABRERA, Jeni Rose Primary Care Physician Encounter [facility] [place] Date(s): 10/31/24 - 11/07/24 [facility] [address] [place] [address]- Encounter Diagnosis Superior mesenteric artery stenosis(Discharge Diagnosis) - 10/31/24 Attending Physician: Linda Johnson NP Admitting Physician: Linda Johnson NP Referring Physician: Jeni Garcia MD Encounter Type: Office Visit Allergies, Adverse Reactions, Alerts Substance Criticality Severity Reaction Reaction Severity Status codeine Anaphylaxis dizzy nausea Active morphine dizzy nausea Active Percocet 5/325 rash Activ e Immunizations Given and Recorded Vaccine Date Status Refusal Reason SARS-CoV-2 (COVID-19) mRNA-1273 vaccine 12/30/20 R ecorded SARS-CoV-2 (COVID-19) mRNA-1273 vaccine 12/02/20 R ecorded influenza virus vaccine, inactivated 08/29/20 Italo rded influenza virus vaccine, inactivated 08/23/19 Italo rded influenza virus vaccine, inactivated 07/28/17 Italo rded influenza virus vaccine, inactivated 07/14/15 Italo rded influenza virus vaccine, inactivated 07/13/10 Italo rded pneumococcal 23-valent vaccine 10/05/16 Recorded pneumococcal 23-valent vaccine 06/26/04 Recorded pneumococcal 13-valent vaccine 09/08/15 Recorded Zoster Vaccine Live 01/22/15 Recorded tetanus/diphtheria/pertussis, acel(Tdap) 06/01/11 Recorded tetanus-diphtheria toxoids (Td) 02/23/99 Recorded tetanus-diphtheria toxoids (Td) 04/02/92 Recorded tetanus-diphtheria toxoids (Td) 04/13/90 Recorded hepatitis B adult vaccine 12/13/94 Recorded hepatitis B adult vaccine 03/04/94 Recorded hepatitis B adult vaccine 02/02/94 Recorded Measles/Mumps/Rubella Virus Vaccine 01/11/94 Recor ded Medications acetaminophen 500 mg oral tablet 1 tablet = 500 mg, By Mouth, Daily, PRN as needed, Maintenance, 03/09/22 11:10:00 AM EDT, ; Start Date: 03/09/22 Status: Ordered Repeat number: 1 amLODIPine 10 mg oral tablet 1 tablet = 10 mg, By Mouth, Daily, Maintenance, 03/09/22 11:10:00 AM EDT, Tablet, ; Start Date: 03/09/22 Status: Ordered Repeat number: 1 aspirin 81 mg oral delayed release tablet 1 tablet = 81 mg, By Mouth, Daily, # 30 tablet, 5 Refills, Maintenance, 10/31/24 4:32:00 PM EST, [facility]/pharmacy #[id number], Partial fill upon patient request if the prescription is for a schedule II opioid drug., 150, cm, 10/31/24 13:29:00 EST, Height, 80.1, kg, 11/03/22 18:55:00 EST, Dry Weight Start Date: 10/31/24 Stop Date: 04/29/25 Status: Ordered Quantity: 30.0 Unit: tablet Repeat number: 6 Indication: Chronic vascular disorders of intestine atorvastatin 10 mg oral tablet 1 tablet = 10 mg, By Mouth, Daily at bedtime, # 30 tablet, 5 Refills, Maintenance, 10/31/24 4:29:00 PM EST, [facility]/pharmacy #[id number], Partial fill upon patient request if the prescription is for a schedule II opioid drug., 150, cm, 10/31/24 13:29:00 EST, Height, 80.1, kg, 11/03/22 18:55:00 EST, Dry Weight Start Date: 10/31/24 Stop Date: 04/29/25 Status: Ordered Quantity: 30.0 Unit: tablet Repeat number: 6 biotin 5000 mcg oral tablet, disintegrating 1 tablet = 5,000 mcg, By Mouth, Daily, 0 Refills, Maintenance, 08/03/15 11:22:39 PM EDT Start Date: 08/03/15 Status: Ordered Repeat number: 1 docusate sodium 100 mg oral capsule 1 capsule = 100 mg, By Mouth, 2 times a day, # 60 capsule, 0 Refills, Maintenance, 03/10/22 2:32:00 PM EDT, Capsule, [facility]/pharmacy #[id number], Partial fill upon patient request if the prescription is for a schedule II opioid drug., 149.9, cm, 03/09/22 15:36:00 EDT, Height, 86.6, kg, 08/22/21 18:21:00 EDT,Dry Weight Start Date: 03/10/22 Status: Ordered Quantity: 60.0 Unit: capsule Repeat number: 1 famotidine 40 mg oral tablet 1 tablet = 40 mg, By Mouth, Daily, 0 Refills, Maintenance, 08/21/21 10:09:00 PM EDT, Tablet, ; Start Date: 08/21/21 Status: Ordered Repeat number: 1 Folic Acid Tablet 1 mg, By Mouth, Daily, Maintenance, 02/09/11 2:36:38 PM EDT Start Date: 02/09/11 Status: Ordered Repeat number: 1 gabapentin 100 mg oral capsule 100 mg, 1, capsule, By Mouth, 3 times a day, # 90 capsule, Refills 5, Tot. Refills 5, Maintenance, 03/17/22 10:22:00 PM EDT, Route to Pharmacy Electronically, [facility]/pharmacy #[id number], Partial fill upon patient request if the prescription is for a schedule II opioid drug., 149.9, cm, 03/09/22 15:36:00 EDT,Height, 86.6, kg, 08/22/21 18:21:00 EDT, Dry Weight Start Date: 03/17/22 Status: Ordered Quantity: 90.0 Unit: capsule Repeat number: 6 levothyroxine 0.05 mg oral tablet 1 tablet = 50 mcg, By Mouth, Daily, Maintenance, 03/09/22 11:07:00 AM EDT, Tablet, ; Start Date: 03/09/22 Status: Ordered Repeat number: 1 losartan 100 mg oral tablet 1 tablet = 100 mg, By Mouth, Daily, Maintenance, 03/09/22 11:07:00 AM EDT, Tablet, ; Start Date: 03/09/22 Status: Ordered Repeat number: 1 methotrexate 2.5 mg oral tablet 8 tablet = 20 mg, By Mouth, Every Tuesday, 0 Refills, Maintenance, 02/09/11 2:36:28 PM EDT Start Date: 02/09/11 Status: Ordered Repeat number: 1 montelukast 10 mg oral tablet 10 mg, 1, tablet, By Mouth, Daily, Refills 0, Maintenance, 08/21/21 10:11:00 PM EDT, ; Start Date: 08/21/21 Status: Ordered Repeat number: 1 omeprazole 20 mg oral enteric coated capsule 1 capsule = 20 mg, By Mouth, 2 times a day, Maintenance, 03/09/22 11:04:00 AM EDT, ; Start Date: 03/09/22 Status: Ordered Repeat number: 1 ProAir HFA 90 mcg/inh inhalation aerosol with adapter 2, puffs, Inhalation, PRN, every 4 to 6 hours Start Date: 08/21/21 Status: Ordered Repeat number: 1 See Instructions See Instructions, See Instructions, # 1 each, Refills 0, Tot. Refills 0, Maintenance, Outpatient [facility] (Adult) for diagnosis Vertigo H81.10, 08/24/21 4:48:00 PM EST, Supply Start Date: 08/24/21 Status: Ordered Quantity: 1.0 Unit: each Repeat number: 1 Walker See Instructions, Refills 0, Tot. Refills 0, User for walking, 10/17/08 6:40:25 PM EST Start Date: 10/17/08 Status: Ordered Repeat number: 1 Problem List Condition Confirmation Course Effective Dates Status H ealth Status Informant Angle-closure glaucoma Confirmed Active Asthma Confirmed Active Cholelithiasis Confirmed Active Calcaneal spur Confirmed Active CKD (chronic kidney disease), stage III Confirmed Active Chronic lower back pain Confirmed Active Chronic obstructive pulmonary disease Confirmed Active Closed fracture of fifth metatarsal bone Confirmed Active Eczema Confirmed Active GERD (gastroesophageal reflux disease) Confirmed Active History of cholecystectomy Confirmed Active Hypertension Confirmed Active Hypothyroidism Confirmed Active Superior mesenteric artery stenosis Confirmed Active Osteopenia Confirmed Active Primary osteoarthritis of both knees Confirmed Active Right renal artery stenosis Confirmed Active Rheumatoid arthritis, adult Confirmed Active Severe obesity (BMI 35.0-39.9) with comorbidity Confirmed Active Sleep apnea Confirmed Active Celiac artery stenosis Confirmed Active Venous insufficiency Confirmed Active Diagnosis Diagnosis Type Effective Dates Health Status Clinical Service Informant Superior mesenteric artery stenosis Discharge Diagnosis 10/31/24 Vital Signs Most recent to oldest [Reference Range]: 1 Height 150 cm (10/31/24 1:29 PM) Weight 81 kg (10/31/24 1:29 PM) Oxygen Saturation [94-100 %] 93 % *L* (10/31/24 1:29 PM) Pulse Rate [55-90 bpm] 68 bpm (10/31/24 1:29 PM) Body Mass Index [18.5-24.99 kg/m2] 36 kg /m2 *>HHI* (10/31/24 1:29 PM) Blood Pressure [90-138/55-84 mm Hg] 146/ 86mm Hg *H* (10/31/24 1:29 PM) Respiratory Rate [16-30 br/min] 18 br/mi n (10/31/24 1:29 PM) Mode of Delivery (Oxygen) Room air (10/31/24 1:29 PM) Blood pressure sites Arm, right (10/31/24 1:29 PM) Weight Obtained Via Standing scale (10/31/24 1:29 PM) Social History Social History Type Response Smoking Status Never (less than 100 in lifetime) entered on: 08/21/21 Sex Sex Representation Female (finding) Note * Beverly Bojorquez: PERFORM Event Display: Patient Education/Instruction Authored Date: [id number] Ambulatory [place] [address] Name: BUBBA LAU : 1945?? Visit: 10/31/2024 13:15?? Ambulatory Visit Instructions ?? Your Care Team Primary Care Provider Jose CABRERA, Jeni Rose? This Visit Provider Linda Johnson NP Your Diagnosis Superior mesenteric artery stenosis Vitals Signs Pulse Rate: 68 bpm Height: 150 cm Respiratory Rate: 18 br/min Weight: 81 kg Systolic Blood Pressure:??146 mm Hg??High Body Mass Index:??36 kg/m2??Critical Diastolic Blood Pressure:??86 mm Hg??High Body surface area: 1.84 Oxygen Saturation:??93 %??Low ?? What to do next Scheduled Follow-Up Appointments 2024 10:20 AM EDT ?? With: Jacque CABRERA, Misael Abarca Where: [facility] [address] [address]- Status: Pending Medications The list below reflects the information in our records and provided by you today along with any changes made during this visit. Please continue your medications until treatment is completed or stopped by your provider. If this is different from the information you have or there are other questions,please contact the prescribing provider. What How Much When Why Instructions New Atorvastatin (atorvastatin 10 mg oral tablet) 1 tab(s) Oral Daily at Bedtime Duration: 30 Days Refills: 5 Pickup at [facility]/pharmacy #[id number] Changed Aspirin (aspirin 81 mg oral delayed release tablet) 1 tab(s) Oral Daily Superior mesenteric artery stenosis Duration: 30 Days Pickup at [facility]/pharmacy #[id number] Unchanged Acetaminophen (acetaminophen 500 mg oral tablet) 1 tab(s) Oral Daily as needed for as needed Unchanged Albuterol (ProAir HFA 90 mcg/ inh inhalation aerosol with adapter) 2 puff(s) Inhalation As needed for Wheezing/Shortness of Breath every 4 to 6 hours ?? Unchanged Amlodipine (amLODIPine 10 mg oral tablet) 1 tab(s) Oral Daily Unchanged Biotin (biotin 5000 mcg oral tablet, disintegrating) 1 tab(s) Oral Daily Unchanged Docusate (docusate sodium 100 mg oral capsule) 1 capsule Oral Twice a day Unchanged Durable Medical Equipment (Walker) See Instructions User for walking ?? Unchanged Famotidine (famotidine 40 mg oral tablet) 1 tab(s) Oral Daily Unchanged Folic Acid (Folic Acid Tablet) 1 Milligram Oral Daily Unchanged Gabapentin (gabapentin 100 mg oral capsule) 1 capsule Oral 3 times a day Unchanged Levothyroxine (levothyroxine 0.05 mg oral tablet) 1 tab(s) Oral Daily Unchanged Losartan (losartan 100 mg oral tablet) 1 tab(s) Oral Daily Unchanged Methotrexate (methotrexate 2.5 mg oral tablet) 8 tab(s) Oral Every Tuesday Unchanged Miscellaneous Rx (See Instructions) See instructions Outpatient V[facility] Re[facility] and Physical Therapy (Adult) for diagnosis Vertigo H81.10 ?? Unchanged Montelukast (montelukast 10 mg oral tablet) 1 tab(s) Oral Daily Unchanged Omeprazole (omeprazole 20 mg oral enteric coated capsule) 1 capsule Oral Twice a day Pharmacy Information [facility]/pharmacy #[id number]: [address] [place], [place] [id number] [phone] Medications and Immunizations Administered Medications Given During Visit No medications given during this visit.?? Allergies (NKA means No Known Allergies) Percocet 5/325??(rash) codeine??(Anaphylaxis, dizzy nausea) morphine??(dizzy nausea) Common Emergency Awareness Tips IS IT A STROKE? Act FAST and Check for these signs: FACE Does the face look uneven? ARM Does one arm drift down? SPEECH Does their speech sound strange? TIME Call at any sign of stroke ?? Heart Attack Signs Chest discomfort: Most heart attacks involve discomfort in the center of the chest and lasts more than a few minutes, or goes away and comes back. It can feel like uncomfortable pressure, squeezing, fullness or pain. Discomfort in upper body: Symptoms can include pain or discomfort in one or both arms, back, neck, jaw or stomach. Shortness of breath: With or without discomfort. Other signs: Breaking out in a cold sweat, nausea, or lightheaded. Remember, MINUTES DO MATTER. If you experience any of these heart attack warning signs, call to get immediate medical attention! ?? Smoking can increase your chances of developing chronic health problems and can cause harmful effects to other family members in your house. If you smoke, you are strongly encouraged to quit. Please call [employer] at [phone] or [phone] ([phone]) or log in to [email or web address] for referrals to smoking cessation programs. ?? The National Suicide Prevention Hotline is available 09/05 if you or someone you know needs to find a reason to keep living. By calling 8-961-546-HeTexted (2623) you'll be connected to a skilled, trained counselor at a crisis center in your area. [facility] [employer] Portal You can view and manage your care through the patient portal or by using a health care ifeoma of your choosing. [employer] is a website that allows you to securely view your medical information including your hospital discharge summary, office visit summaries, medications and follow-up visits. You can also request appointments, renew medications, and request access to your medical information using a health care ifeoma of your choosing, or just ask a question. You can enroll at [email or web address] or register during your next office visit. [facility], in keeping with [facility] guidance, no longer requires face masks for staff, patientsor visitors in most situations. Similiar to time spent indoors at other locations, there is the chance that you were exposed to repiratory viruses during your time with us (such as flu or COVID-19). If you develop symptoms concerning for a viral respiratory infection, please seek testing (and treatment if indicated) from your medical provider or home test kit. ?? Disclaimer: The information provided is of a general nature and is intended to be used in conjunction with the recommendations and advice of your health care practitioner. Every effort has been made to ensure that the information provided is accurate and complete at the time it is provided to you however, as your needs change, or, as new information becomes available, different or additional instructions may be required. ?? If you have questions, please consult with your primary care provider or pharmacist, as appropriate. This information is not intended to serve as substitution for assessment and evaluation by a qualified health care provider. If you do not have a primary care provider, you may find a [facility] provider by calling [facility] [employer] [facility] at [phone]. Patient Care team information Care Team Personnel Name: Abdulkadir Mirza RN Position: S RN Member Role: Primary Care Nurse Name: Jeni Garcia MD Position: [facility] Outreach Member Role: PCP Address: [address] [place] [address] Telecom: Name: Nancy Aguilera RN Position: S RN Member Role: Primary Care Nurse Care Team Related Persons Name: JULIEN LAU Name: ELHAM LAU Insurance Providers Guarantor name: NA Health Plan Information #: 2 [facility] Member Number: [id number] Policy Number: NA Group Number: NA Health Plan Information #: 1 Payer: [facility] OPT Member Number: [id number] Policy Number: NA Group Number: [id number]
--- OUTSIDE RECORDS SUMMARY | 2024-11-28 12:15 | XMS_ITS | Encounter Summary ---
Author Organization [facility] Address [address] [place] [address] Care Team Providers Care Supervisor [employer] Name Role Phone Jeni Garcia MD Primary Care Provider + Encounter Details Date Type Department Care Team (Late Contact Info) Description 04/04/2023 Orders Only [facility] MEDICINE [address] [place] [address] Jeni Garcia MD [address] [place] [address] Social History Tobacco Use Types Packs/Day Years Used Date Smoking Tobacco: Never Smokeless Tobacco: Never Alcohol Use Standard Drinks/Week Comments Never 0 (1 standard drink = 0.6 oz pur e alcohol) Depression Answer Date Recorded Patient Health Questionnaire-9 Score 0 11/16/2022 Depression Answer Date Recorded Patient Health Questionnaire-2 Score 0 11/16/2022 Comments Unknown Sex and Gender Information Value Date Recorded Sex Assigned at Female 08/16/2022 10:14 AM EDT Legal Sex Female 10:14 AM EDT Gender Identity Female 08/16/2022 10:14 AM EDT Sexual Orientation Straight 08/16/2022 10 :14 AM EDT COVID-19 Exposure Response Date Recorded In the last 10 days, have yo u been in contact with someone who was confirmed or suspected to have Coronavirus/COVID-19? No / Unsure 03/31/2023 2:03 PM EDT documented as of this encounter Plan of Treatment Upcoming Encounters Date Type Department Care Team (Late Contact Info) Description 05/28/2025 10:00 AM EDT Office Visit [facility] ADULT DENTAL [address] [place] [address] [place] documented as of this encounter Visit Diagnoses Not on filedocumented in this encounter Additional Health Concerns Assessment Noted Time PHQ-9 Depression Total Score: 0 11/16/19 23 10:53 AM EST documented as of this encounter Care Teams Supervisor [employer]lytic Tinning Relationship Specialty Start Date End Date Jeni Garcia MD [address] [place] [address] PCP - General Family Medicine 12/16/15 documented as of this encounter
--- OUTSIDE RECORDS SUMMARY | 2024-11-28 12:15 | XMS_ITS | Encounter Summary ---
Author Organization [facility] Address [address] [place] [address] Care Team Providers Care Nail Specialist Name Role Phone Jeni Garcia MD Primary Care Provider + Encounter Details Date Type Department Care Team (Late Contact Info) Description 02/25/2023 Orders Only [facility] MEDICINE [address] [place] [id number] Jeni Garcia MD [address] [place] [address] Obstructive sleep apnea syndrome (Primary Dx) Social History Tobacco Use Types Packs/Day Years [...] suspected to have Coronavirus/COVID-19? No / Unsure 02/15/2023 10:05 AM EDT documented as of this encounter Plan of Treatment Upcoming Encounters Date Type Department Care Team (Late Contact Info) Description 05/28/2025 10:00 AM EDT Office Visit [facility] ADULT DENTAL [address] [place] [address] Blessing Bah documented as of this encounter Visit Diagnoses Diagnosis Obstructive sleep apnea syndrome- Primary Obstructive sleep apnea (adult) (pediatric) documented in this encounter Additional Health Concerns Assessment Noted Time PHQ-9 Depression Total Score: 0 11/16/19 23 10:53 AM EST documented as of this encounter Care Teams Nail Specialist Relationship Specialty Start Date End Date Jeni Garcia MD [address] [place] [address] PCP - General Family Medicine 12/16/15 documented as of this encounter
--- OUTSIDE RECORDS SUMMARY | 2024-11-28 12:15 | XMS_ITS | Encounter Summary ---
Author Organization [facility] Address [address] [place] [address] Care Team Providers Care Client Solutions Director Name Role Phone Jeni Garcia MD Primary Care Provider + [phone] Encounter Details Date Type Department Care Team (Late st Contact Info) Description 10/31/2024 Telephone Gastroenterology - [address] [place] [address] Emma Leonard MA Social History [...] Notes * Jessy Aguila MA - 11/01/2024 11:24 AM EST FAXED * Emma Leonard MA - 10/31/2024 2:28 PM EST (vascular) wants egd results for records fax#[phone] phone#[phone] attn:[email or web address] documented in this encounter Plan of Treatment Upcoming Encounters Date Type Department Care Team (Late st Contact Info) Description 12/05/2024 11:00 AM EST Office Visit Orthopedic Surgery - [place] [address] [facility] [address] [place] [id number] Lazaro Saleh MD [address] [address] documented as of this encounter Visit Diagnoses Not on filedocumented in this encounter Care Teams Client Solutions Director Relationship Specialty Start Date End Date Jeni Garcia MD [address] [place] [phone] PCP - General 05/19/21 documented as of this encounter
--- OUTSIDE RECORDS SUMMARY | 2024-11-28 12:15 | XMS_ITS ---
Author Name Sveta Calderon NP Address [address] [place] [address] Phone [phone] [facility] Care Team Providers Care Reading Intervention Teacher Name Role Phone Sveta Calderon Unavailable [phone] Unavailable Unavailable Unavailable Unavailable Unavailable Unavailable Reason for Referral Not Available Allergies, adverse reactions, alerts Allergen Type Reaction Severity Status Onset Date Percocet Allergy to substance (disorder) Lightheaded, itchiness Severe Active N/A Codeine Allergy to substance (disorder) Lightheaded, itchiness Severe Active N/A Morphine Sulfate Allergy to substance (disorder) Lightheaded, itchiness Severe Active N/A History of medication use Medication Class Instructions Start Date End Date Gabapentin 100 mg Cap TAKE 1 CAPSULE BY MOUTH 3 TIMES A DAY 2022-03-17 No Data Available amLODIPine Besylate 10 mg Tab TAKE 1 TAB LET BY MOUTH 1 TIME EACH DAY. 2021-11-26 No Data Available Montelukast Sodium 10 mg Tab TAKE 1 TABLET BY MOUTH 07-05-27 No Data Available Omeprazole 20 mg Cap delayed rel TAKE 1 CAPSULE BY MOUTH TWICE A DAY 2022-05-12 No Data Available VITAMIN D3 25 MCG TABLET TAKE 1 CAPSULE (50 MCG) BY MOUTH IN THE MORNING 2021-09-28 No Data Available Levothyroxine Sodium 50 MCG Tab TAKE 1 T ABLET BY MOUTH EVERY DAY 2022-05-12 No Data Available Losartan Potassium 100 mg Tab TAKE 1 TAB LET BY MOUTH EVERY DAY 2022-06-07 No Data Available Methotrexate 2.5 mg Tab TAKE 8 TABLETS O NCE WEEKLY ON Mondays2022-07-22 No Data Available Folic Acid 1 mg Tab TAKE 1 TABLET BY JAI TH EVERY DAY 2021-11-23 No Data Available Albuterol Sulfate HFA 108 (9 0 Base) MCG/ACT Aerosol Solution TAKE 2 PUFFS BY MOUTH EVERY 4 TO 6 HOURS NEEDED 2022-08-14 No Data Available Sulfamethoxazole-Trimethopri m 800/160 mg Tab TAKE 1 TABLET BY MOUTH EVERY 12 HOURS FOR 7 DAYS 2022-10-09 No Data Available Tamsulosin 0.4 mg Cap TAKE 1 CAPSULE BY MOUTH EVERY DAY IN THE MORNING 2022-10-19 2022-11-05 traMADol 50 mg Tab TAKE 1/2-1 TAB BY MO UTH EVERY 8 HOURS NEEDED SEVERE PAIN FOR UP TO 10 DAYS 2022-10-19 No Data Available Advair HFA 115-21 MCG/ACT Aerosol INHALE 2 PUFF EVERY 12 HOURS FOR 30 DAYS 2022-10-28 No Data Available Tylenol Extra Strength 500 m g Tab 1 tab 2-3 a day PRN 2022-11-05 No Data Available Ibuprofen 400 mg Tab TAKE 1 TABLET BY MO [facility] EVERY 8 HOURS NEEDED FOR MILD PAIN SCALE 1-3 2022-12-31 No Data Available Lidocaine 5 % Patch PLACE 1 PATCH TOPICA LLY DAILY NEEDED FOR PAIN 2022-12-31 No Data Available Spiriva Respimat 1.25 MCG/AC T Aerosol Solution INHALE 2 PUFF BY MOUTH DAILY 2023-03-01 2023-09-26 [facility] Senna Plus 8.6/50 mg Tab TAKE 2 TABL ETS BY MOUTH AT BEDTIME NEEDED FOR CONSTIPATION 2023-03-02 No Data Available Betamethasone Valerate 0.1 % Crm APPLY T O AFFECTED AREA TWICE A DAY 2023-03-31 No Data Available valACYclovir 1 GM Tab TAKE 1 TABLET BY M OUTH 3 TIMES DAILY FOR 7 DAYS 2023-03-31 No Data Available Nitrofurantoin Monohyd Macro 100 mg Cap TAKE 1 CAPSULE BY MOUTH TWICE A DAY FOR 7 DAYS 2023-04-19 No Data Available Paxlovid (300/100) 20 x 150 mg & 10 x 100 mg Tab Therapy Pack TAKE 2 TABLETS (300 MG) OF NIRMATRELVIR & 1 TABLET (100 MG) OF RITONAVIR BY MOUTH TWICE DAILY FOR 5 DAYS 2023-05-23 No Data Available Tamsulosin 0.4 mg Cap TAKE 1 CAPSULE BY MOUTH EVERY DAY FOR 14 DAYS 2023-06-03 2023-09-26 predniSONE 10 mg Tab TAKE 4 TABLETS BY M OUTH EVERY DAY 2023-08-17 2023-09-26 Azithromycin 250 mg Tab TAKE 1 TABLET BY MOUTH EVERY DAY 2023-08-17 No Data Available hydroCHLOROthiazide 25 mg Tab TAKE 1 TAB LET BY MOUTH EVERY DAY 2023-08-172023-09-26 Fluticasone Propionate 50 MCG/ACT Suspension PLEASE SEE ATTACHED FOR DETAILED DIRECTIONS 2023-08-19 No Data Available Loratadine 10 mg Tab TAKE 1 TABLET BY MO U[facility] EVERY DAY IN THE MORNING 2023-08-19 No Data Available COMPACT SPACE CHAMBER USE WITH INHALER A S DIRECTED 2023-08-22 No Data Available methylPREDNISolone 4 mg Tab Therapy Pack USE DIRECTED ON PACKAGE 2023-08-22 2023-09-26 Amoxicillin-Pot Clavulanate 875/125 mg Tab TAKE 1 TABLET BY MOUTH TWICE A DAY FOR 10 DAYS 2023-09-12 No Data Available Aspirin Low Dose 81 mg Tab delayed rel TAKE 1 TABLET BY MOUTH EVERY DAY 2023-09-23 No Data Available Cephalexin 500 mg Cap TAKE 1 CAPSULE BY MOUTH EVERY 6 HOURS 2023-09-23 No Data Available [facility] Digestive Probiotic 250 mg Cap TAKE 1 CAPSULE BY MOUTH TWICE A DAY 2023-09-23 No Data Available Nitroglycerin 0.[address] 1 TAB UNDER TONGUE EVERY 5 MINS DIRECTED FOR OF CHEST PAIN (MAX 3 TAB/15 MIN THEN CALL 911) 2023-09-23 No Data Available Aspirin 81 mg Tab delayed rel take 1 tab let orally once daily 2023-09-26 No Data Available Mupirocin 2 % Oint apply as directed 2 times daily 2023-11-25 No Data Available Triamcinolone Acetonide 0.5 % Crm 1 application topically to affected area 2 times per day as needed 2023-11-25 No Data Available Problem List Problem Status Onset Date Resolved Date 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 Active 2022-11-05 N/A 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 2022-11-11 N/A Obesity (BMI 30.0-34.9) Active 2022-11-17 N/A Hx of renal calculi Resolved 2022-11-05 Hx of renal calculi Resolved 2022-12-02 Other problems related to [facility] facilities and other health care Active 2023-11-25 N/A Glaucoma Active 2022-11-05 N/A Cataracts, bilateral Active 2022-11-05 N/A Arthritis of left upper arm Active 2022-12-02 N/A Atherosclerosis of renal art celine, Atherosclerosis of [place] arteries of extremities with intermittent claudication, bilateral legs Active 2022-11-05 N/A 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 Active 2023-11-25 N/A Eczema Active 2023-11-25 N/A Chronic obstructive pulmonary disease, unspecified Act jesus 2022-11-17 N/A PVD (peripheral vascular disease) Active 2023-11 N/A Mixed hyperlipidemia due to type 2 diabetes mellitus Active 2023-11-25 N/A Encounters Encounters Type Facility Date of Service Diagnosis/Co mplaint New patient,40-59min; chronic exacerbation, 2 stable chronic or 1 acute illness add add modifier 95 for video (do not use for phone, instead use [id number]) [facility], ([place]) 11/05/2022 Rheumatoid polyneurop w rheumatoid arthritis of unsp siteAtherosclerosis of renal arteryAthscl ven[place] arteries of extrm w intrmt nilesh, bi legsPersonal history of urinary calculi New patient,40-59min; chronic exacerbation, 2 stable chronic or 1 acute illness add add modifier 95 for video (do not use for phone, instead use [id number]) [facility], ([place] 11/05/2022 New patient,40-59min; chronic exacerbation, 2 stable chronic or 1 acute illness add add modifier 95 for video (do not use for phone, instead use 52753-62) [facility], ([place]) 11/05/2022 New patient,40-59min; chronic exacerbation, 2 stable chronic or 1 acute illness add add modifier 95 for video (do not use for phone, instead use [id number]) [facility], ([place] New patient,40-59min; chronic exacerbation, 2 stable chronic or 1 acute illness add add modifier 95 for video (do not use for phone, instead use 30172-81) [facility]/20[place] New patient,40-59min; chronic exacerbation, 2 stable chronic or 1 acute illness add add modifier 95 for video (do not use for phone, instead use [id number]) [facility], ([place]) [place]/2022 No Data Available [facility]20[place] Primary osteoarthritis, left elbowPersonal history of urinary calculi No Data Available [facility]20[place] No Data Available [facility] No Data Available [facility] 01/25/2023 Shortness of breathCough, unspecified Estab. patient 20-29min; 1 stable chronic or 2 minor; add add modifier 95 for video, modifier 93 for phone [facility], ([place] 07/25/2023 Rheumatoid polyneurop w rheumatoid arthritis of unsp siteAtherosclerosis of renal arteryAthscl venetie ira arteries of extrm w intrmt nilesh, bi legsPersonal history of urinary calculiAcquired absence of other specified parts of digestive tractUnspecified asthma, uncomplicatedUnspecified glaucomaUnspecified cataractImmunodeficiency due to drugsOther mcc (current) drug therapyChronic obstructive pulmonary disease, unspecifiedObesity, unspecifiedBody mass index (BMI) 35.0-35.9, adultPrimary osteoarthritis, left elbowShortness of breathCough, unspecified Estab. patient 20-29min; 1 stable chronic or 2 minor; add add modifier 95 for video, modifier 93 for phone [facility] Estab. patient 20-29min; 1 stable chronic or 2 minor; add add modifier 95 for video, modifier 93 for [facility]20[place] Estab. patient 20-29min; 1 stable chronic or 2 minor; add add modifier 95 for video, modifier 93 for [facility]20[place] Estab. patient 20-29min; 1 stable chronic or 2 minor; add add modifier 95 for video, modifier 93 for phone [facility] 07[place]/20[place] Estab. patient 20-29min; 1 stable chronic or 2 minor; add add modifier 95 for video, modifier 93 for [facility] ([place] 07/25/2023 No Data Available [facility], ([place] 09/30/2023 Chronic obstructive pulmonar y disease, unspecifiedRheumatoid polyneurop w rheumatoid arthritis of unsp siteAtherosclerosis of renal arteryAthscl venetie ira arteries of extrm w intrmt nilesh, bi legsImmunodeficiency due to drugsPersonal history of urinary calculiAcquired absence of other specified parts of digestive tractUnspecified asthma, uncomplicatedUnspecified glaucomaUnspecified cataractOther terminal operations supervisor (current) drug therapyObesity, unspecifiedBody mass index (bmi) 34.0-34.9, adultPrimary osteoarthritis, left elbowShortness of breathCough, unspecifiedCellulitis, unspecified No Data Available [facility], ([place] 09/30/2023 No Data Available [facility] 09/[place]/2023 No Data Available [facility], ([place] 09/30/2023 RN, CN or CP time with patient by phone; use with 1111F, BP, A1c or other CPTII codes [facility], ([place]) 09/26/2023 Encounter for other specifie d aftercare RN, CN or CP time with patient by phone; use with 1111F, BP, A1c or other CPTII codes [facility], ([place]) 09/26/2023 Estab. patient 30-39min; chronic exacerbation, 2 stable chronic or 1 acute illness add add modifier 95 for video, (do not use for phone, instead use [id number]) [facility], ([place]/25/2023 Rheumatoid polyneurop w rheumatoid arthritis of unsp siteAtherosclerosis of renal arteryAthscl venetie ira arteries of extrm w intrmt nilesh, bi legsUnspecified glaucomaUnspecified cataractImmunodeficiency due to drugsOther mcc (current) drug therapyChronic obstructive pulmonary disease, unspecifiedObesity, unspecifiedPrimary osteoarthritis, left elbowOther problems related to medical facilities and other health careAthscl heart disease of [place] cor art w unstable ang pctrsPeripheral vascular disease, unspecifiedDermatitis, unspecifiedType 2 diabetes mellitus with other specified complicationMixed hyperlipidemia Estab. patient 30-39min; chronic exacerbation, 2 stable chronic or 1 acute illness add add modifier 95 for video, (do not use for phone, instead use 52903-29) [facility], ([place] 11[place]25/20[place] Estab. patient 30-39min; chronic exacerbation, 2 stable chronic or 1 acute illness add add modifier 95 for video, (do not use for phone, instead use 30127-54) [facility], ([place] 11/25/2023 Estab. patient 30-39min; chronic exacerbation, 2 stable chronic or 1 acute illness add add modifier 95 for video, (do not use for phone, instead use 15186-53) [facility], ([place] 11/25/2023 Estab. patient 30-39min; chronic exacerbation, 2 stable chronic or 1 acute illness add add modifier 95 for video, (do not use for phone, instead use 09537-32) [facility], ([place] 11/25/2023 Estab. patient 30-39min; chronic exacerbation, 2 stable chronic or 1 acute illness add add modifier 95 for video, (do not use for phone, instead use [id number]) [facility], ([place] 11/25/2023 Estab. patient 30-39min; chronic exacerbation, 2 stable chronic or 1 acute illness add add modifier 95 for video, (do not use for phone, instead use 16485-99) [facility], ([place] 11/25/20[place] Estab. patient 30-39min; chronic exacerbation, 2 stable chronic or 1 acute illness add add modifier 95 for video, (do not use for phone, instead use 25404-99) [facility] 11[place]/20[place] Estab. patient 30-39min; chronic exacerbation, 2 stable chronic or 1 acute illness add add modifier 95 for video, (do not use for phone, instead use 38886-78) [facility] 11[place]/2023 Estab. patient 30-39min; chronic exacerbation, 2 stable chronic or 1 acute illness add add modifier 95 for video, (do not use for phone, instead use 83092-95) [facility] 11[place]/2023 Estab. patient 30-39min; chronic exacerbation, 2 stable chronic or 1 acute illness add add modifier 95 for video, (do not use for phone, instead use 02286-74) [facility], ([place] 11/25/2023 Vital Signs Date of Collection Vitals 2022-11-05 10:33:01 Height - 149.86 cmWe ight - 78.02 kgBody Mass Index (BMI) - 34.74 kg/m2 2023-07-25 08:46:34 Weight - 78.93 kgBod y Mass Index (BMI) - 35.14 kg/m2BP Diastolic - 68.0 mm[Hg]BP Systolic - 137.0 mm[Hg]Pain Scale - 0.0 {score} 2023-11-25 11:48:09 Height - 149.86 cmWe ight - 78.02 kgBody Mass Index (BMI) - 34.74 kg/m2BP Diastolic - 64.0 mm[Hg]BP Systolic - 106.0 mm[Hg]O2 % BldC Oximetry - 93.0 %Pain Scale - 3.0 {score} Social History Social History Social History Observation Description Effec tive Time Current Smoking Status Former smoker 2024-11-17 2 Sex Female History of Procedures Procedures Service Procedure code Service date Servicing provider Phone# New patient,40-59min; chronic exacerbation, 2 stable chronic or 1 acute illness add add modifier 95 for video (do not use for phone, instead use [id number]) 83520 2022-11-05 No Data Available No Data Availa ble Medication List Documented (1159F) 1159F 2022-11-05 No Data Available No Data Lucretia ilable Medication Review by prescribing provider or pharmacist documented (1160F) 1160F 2022-11-05 No Data Available No Data Lucretia ilable Pain Assessment - Pain Documented on a Pain Scale (1125F) 1125F 2022-11-05 No Data Available No Data Lucretia ilable Advance Care Directive Advance care planning discussion documented in the medical record (1158F) 1158F 2022-11-05 No Data Available No Data Availa ble BMI obtained (3008F) 3008F 2022-11-05 No Data Availab le No Data Available No Data Available 73930 2022-12-02 No Data Available No Data Available Medication List Documented (1159F) 1159F 2022-12-02 No Data Available No Data Lucretia ilable Pain Assessment - Pain Documented on a Pain Scale (1125F) 1125F 2022-12-02 No Data Available No Data Lucretia ilable No Data Available 43362 2023-01-25 No Data Available No Data Available Estab. patient 20-29min; 1 stable chronic or 2 minor; add add modifier 95 for video, modifier 93 for phone 30111 2023-07-25 No Data Available No Data Availa ble Pain Assessment - NO pain present (1126F) 1126F 2023-07-25 No Data Available No Data A vailable SBP 130-139 (3075F) 3075F 2023-07-25 No Data Availabl e No Data Available DBP <80 (3078F) 3078F 2023-07-25 No Data Available No Data Available Medication List Documented (1159F) 1159F 2023-07-25 No Data Available No Data Lucretia ilable BMI obtained (3008F) 3008F 2023-07-25 No Data Availab le No Data Available No Data Available 87870 2023-09-30 No Data Available No Data Available Medications prescribed in hospital were reviewed and reconciled against what they were taking prior to admission during today's visit. (1111F) 1111F 2023-09-30 No Data Available No Data Availa ble Functional Status Assessed (1170F) 1170F 2023-09-30 No Data Available No Data Avail able Medication List Documented (1159F) 1159F 2023-09-30 No Data Available No Data Lucretia ilable RN, CN or CP time with patient by phone; use with 1111F, BP, A1c or other CPTII codes 49306 2023-09-26 No Data Available No Data Avai lable Medications prescribed in hospital were reviewed and reconciled against what they were taking prior to admission during today's visit. (1111F) 1111F 2023-09-26 No Data Available No Data Availa ble Estab. patient 30-39min; chronic exacerbation, 2 stable chronic or 1 acute illness add add modifier 95 for video, (do not use for phone, instead use 31129-06) 93746 2023-11-25 No Data Available No Data Availa ble Medication List Documented (1159F) 1159F 2023-11-25 No Data Available No Data Lucretia ilable Medication Review by prescribing provider or pharmacist documented (1160F) 1160F 2023-11-25 No Data Available No Data Lucretia ilable Pain Assessment - Pain Documented on a Pain Scale (1125F) 1125F 2023-11-25 No Data Available No Data Lucretia ilable BMI obtained (3008F) 3008F 2023-11-25 No Data Availab le No Data Available Advance Care Directive Advance care planning discussion documented in the medical record (1158F) 1158F 2023-11-25 No Data Available No Data Availa ble Advance care planning discussed and documented ? advance care plan or surrogate decision-maker was documented in the medical record. (1123F) 1123F 2023-11-25 No Data Available No Data Availa ble Medications prescribed in hospital were reviewed and reconciled against what they were taking prior to admission during today's visit. (1111F) 1111F 2023-11-25 No Data Available No Data Availa ble DBP <80 (3078F) 3078F 2023-11-25 No Data Available No Data Available SBP < 130 (3074F) 3074F 2023-11-25 No Data Available No Data Available Most recent A1c (HbA1c) or GMI level <7% (3044F) 3044F 2023-11-25 No Data Available No Data Availa ble Functional Status Functional Category Effective Dates ADL: Bathing: Needs assistan ceDressing: Needs assistanceEating: IndependentAmbulation: AssistanceTransferring: Needs assistanceToileting: Needs assistanceIADL: Medication: Needs AssistanceMeal Prep: Needs AssistanceShopping: Needs AssistanceHousekeeping: Needs AssistanceFalls in last 6 Months: no 2023-11-25 ambulates with cane 2023-11-25 Mental Status No Information Assessments Date of Service Assessments 2022-11-05 10:33:01 Rheumatoid polyneuro gregor with rheumatoid arthritis of unspecified siteAtherosclerosis of renal artery, Atherosclerosis of [place] arteries of extremities with intermittent claudication, bilateral legsHx of renal calculi 2022-12-02 12:17:08 Arthritis of left up per armHx of renal calculi 2023-01-25 09:24:51 Follow up plan for a cute symptoms: F/U PCPShortness of breath with cough 2023-07-25 08:46:34 <Fully document all Diagnosis>Rheumatoid polyneuropathy with rheumatoid arthritis of unspecified siteAtherosclerosis of renal artery, Atherosclerosis of [place] arteries of extremities with intermittent claudication, bilateral legsHx of renal calculiHx of cholecystectomyAsthmaGlaucomaCataracts, bilateralImmunodeficiency due to drugsChronic obstructive pulmonary disease, unspecifiedObesity (BMI 30.0-34.9)Arthritis of left upper armHx of renal calculiShortness of breath with cough 2023-09-30 07:29:04 Rheumatoid polyneuro gregor with rheumatoid arthritis of unspecified siteAtherosclerosis of renal artery, Atherosclerosis of [place] arteries of extremities with intermittent claudication, bilateral legsHx of renal calculiHx of cholecystectomyAsthmaGlaucomaCataracts, bilateralImmunodeficiency due to drugsChronic obstructive pulmonary disease, unspecifiedObesity (BMI 30.0-34.9)Arthritis of left upper armHx of renal calculiShortness of breath with coughCellulitis 2023-11-25 11:48:09 Other problems relat ed to medical facilities and other health careRheumatoid polyneuropathy with rheumatoid arthritis of unspecified siteAtherosclerosis of renal artery, Atherosclerosis of [place] arteries of extremities with intermittent claudication, bilateral legsGlaucomaCataracts, bilateralImmunodeficiency due to drugsChronic obstructive pulmonary disease, unspecifiedObesity (BMI 30.0-34.9)Arthritis of left upper armOther problems related to medical facilities and other health careAtherosclerosis of renal artery, Atherosclerosis of [place] arteries of extremities with intermittent claudication, bilateral legs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PVD (peripheral vascular disease)EczemaMixed hyperlipidemia due to type 2 diabetes mellitus Plan of Care Date of Service Plans 2022-11-05 10:33:01 Medication Review by prescribing provider or pharmacist documented (1160F)Medication List Documented (1159F)Functional Status Assessed (1170F)Advance Care Directive Advance care planning discussion documented in the medical record (1158F)BMI obtained (3008F)BMI obtained (3008F)Televideo new patient,40-59min; chronic exacerbation, 2 stable chronic or 1 acute illness add modifier 95Continue to see PCP. Follow-up with Alicia as needed for any acute or disease education needs that may arise.Methotrexare, taking fewer (6) tabs than prescribed (8), concerned about AE .Advised to tlk to rheumatology about it.Not on a statin - will investigateEncouraged to lose weightEast high fiber foodActivity as tolerated 2022-12-02 12:17:08 Televideo 20-29min; 1 stable chronic or 2 minor; add modifier 95Continue to see PCP. Follow-up with Alicia as needed for any acute or disease education needs that may arise 09/05.Will have surgery on 02/28/2023Tylenol and gabapentinPassed it w tamsulosin 2023-01-25 09:24:51 Phone (patient, pare nt, or guardian); 11-20 minutes of medical discussion (no modifier 95)Continue to see PCP. Follow-up with [facility] as needed for any acute or disease education needs that may arise 09/05.CPAP broken - instructed to contact Provider/PCP who ordered or contact company who supplied.Wakes in the morning feeling tired, dry cough and SOBDenies dizziness, or distress.May use cool mist vaporizer/humidifier next to bed Elevate HOB when lying down Increase water intakeContact CB if no improvement or symptoms become worse. 2023-07-25 08:46:34 Televideo 20-29min; 1 stable chronic or 2 minor; add modifier 95SBP 130-139 (3075F)DBP <80 (3078F)Continue to see PCP. Follow-up with [facility] as needed for any acute or disease education needs that may arise 09/05.Methotrexare, taking fewer (6) tabs than prescribed (8), concerned about AE .Advised to tlk to rheumatology about it.Not on a statin - will investigateEncouraged to lose weightEast high fiber foodActivity as toleratedRecently passed a kidney stone, 11/0389Bsnxmjag4/24/2022tableAdvair,Albuterol PRN,Montelukast.ophtho consult coing up in Januaryophtho consult coing up in JanuaryImmunodeficiency due to: Methotrexateweakened immune system, encourage hand washing, avoid large crowds, stay up to date on vaccines (annual flu), monitor for and report early any s/s of infectionAdvairAlbuterolMontelukastImportance of complianceBMI 34.74 Encouraging activity as toleratedAwareness of dietWill have surgery on 02/28/2023Tylenol and gabapentinPassed it w tamsulosinCPAP broken - instructed to contact Provider/PCP who ordered or contact company who supplied.Wakes in the morning feeling tired, dry cough and SOBDenies dizziness, or distress.May use cool mist vaporizer/humidifier next to bed Elevate HOB when lying down Increase water intakeContact CB if no improvement or symptoms become worse. 2023-09-30 07:29:04 Phone (patient, pare nt, or guardian); 5-10 minutes of medical discussion (no modifier 95)Medications prescribed in hospital were reviewed and reconciled against what they were taking prior to admission during today's visit. (1111F)Continue to see [facility]CP. [facility] or disease education needs that may arise 09/05.Methotrexare, taking fewer (6) tabs than prescribed (8), concerned about AE .Advised to tlk to rheumatology about it.Not on a statin - will investigateEncouraged to lose weightEast high fiber foodActivity as toleratedRecently passed a kidney stone, 11/0324Shxwougg9/24/2022tableAdvair,Albuterol PRN,Montelukast.ophtho consult coing up in Januaryophtho consult coing up in JanuaryImmunodeficiency due to: Methotrexateweakened immune system, encourage hand washing, avoid large crowds, stay up to date on vaccines (annual flu), monitor for and report early any s/s of infectionAdvairAlbuterolMontelukastImportance of complianceBMI 34.74 Encouraging activity as toleratedAwareness of dietWill have surgery on 02/28/2023Tylenol and gabapentinPassed it w tamsulosinCPAP broken - instructed to contact Provider/PCP who ordered or contact company who supplied.Wakes in the morning feeling tired, dry cough and SOBDenies dizziness, or distress.May use cool mist vaporizer/humidifier next to bed Elevate HOB when lying down Increase water intakeContact CB if no improvement or symptoms become worse.09/30/23: last cephalexin dose tonight at 10pmreports she is much improved. No more redness on LE, denies pain/fever or chills 2023-09-26 13:10:00 Sep 30, 2023, 10:00 AM 2023-11-25 11:48:09 Medication Review by prescribing provider or pharmacist documented (1160F)Medication List Documented (1159F)Functional Status Assessed (1170F)Advance Care Directive Advance care planning discussion documented in the medical record (1158F)BMI obtained (3008F)SBP < 130 (3074F)DBP <80 (3078F)Televideo 30-39min; chronic exacerbation, 2 stable chronic or 1 acute illness add modifier 95Advance care planning discussed and documented ? advance care plan or surrogate decision-maker was documented i n the medical record. (1123F)Pain Assessment - Pain Documented (1125F)Most recent hemoglobin A1c (HbA1c) level <7% (3044F)Continue to see PCP. Follow-up with [facility] as needed for any acute or disease education needs that may arise.<Add contingency plans here>Methotrexare, taking fewer (6) tabs than prescribed (8), concerned about AE .Advised to tlk to rheumatology about it.Not on a statin - will investigateEncouraged to lose weightEast high fiber foodActivity as toleratedophtho consult ongoing for monitoring q 3 months Report any change in eye pressure, call CB or OPHTHALMOLOGY with any eye painophtho consult coing up in January 2023no need for surgery yetImmunodeficiency due to: Methotrexateweakened immune system, encourage hand washing, avoid large crowds, stay up to date on vaccines (annual flu), monitor for and report early any s/s of infectionCONTINGENCY PLANMember to call for the following symptoms: Unable to walk without stopping due to difficulty breathing/ WheezingPlanned intervention: Increase use of albuterol inhaler to q2h PRN cough, breathlessness: prednisone taper 40mg x 3 days, 30mg x 3 days, 20mg x 3 days, 10mg x 3 dayschange in sputum- doxy 100mg bid x 7 daysAdvairAlbuterolMontelukastImportance of complianceBMI 34.74 Encouraging activity as toleratedAwareness of dietWill have surgery on 02/28/2023Tylenol and gabapentincall cb with any increase arm painfollowed by RHEUM with cortisone injectionsWhen member to call: 1. If bp is elevated sbp>150; dbp>90 or symptomatic-h/a, dizziness, cp, sob. 2. if there is a fall 3. if BS >300 or BS<90 or symptomatic; i.e., dizzy, off balance , shaky, general weakness. 4. if UTI symptoms arise-urinary frequency, dysuria, low abd pain. 5. if pain in knees increases/ or joint pain increased [facility]. [facility] with [facility] as needed for any acute or disease education needs that may arise 09/05.what should be done when the member calls: see each individual diagnosis for contingency planRecommend statinAdvised to eat a healthy diet include emphasizing fruits, vegetables, whole grains, poultry, fish and nuts and limiting sugary foods and beverages. Eating this way may help increase fiber, which is also beneficial. A diet high in fiber can help lower cholesterol levels by as much as 10 percent. DASH diet. Increase exercise to 30-45 min q day. Decrease sugary drinks, stop soda intake. Limit ETOH intake. If you smoke, quit smoking.nitro quicklast took nitro >3 months agono CP on 11/25/23monitor for any sign of CP and report to cards or CBPLACE 1 TAB UNDER TONGUE EVERY 5 MINS DIRECTED FOR OF CHEST PAIN (MAX 3 TAB/15 MIN THEN CALL 911)elevate and massage legsrecommend compression stockings Advised to eat a healthy diet include emphasizing fruits, vegetables, whole grains, poultry, fish and nuts and limiting sugary foods and beverages. Eating this way may help increase fiber, which is also beneficial. A diet high in fiber can help lower cholesterol levels by as much as 10 percent. DASH diet. Increase exercise to 30-45 min q day. Decrease sugary drinks, stop soda intake. Limit ETOH intake. If you smoke, quit smoking.keep skin hydrated triamcinolone PRN Eosinophil count [id number] 08/19/23not on any medication Advised to eat a healthy diet include emphasizing fruits, vegetables, whole grains, poultry, fish and nuts and limiting sugary foods and beverages. Eating this way may help increase fiber, which is also beneficial. A diet high in fiber can help lower cholesterol levels by as much as 10 percent. DASH diet. Increase exercise to 30-45 min q day. Decrease sugary drinks, stop soda intake. Limit ETOH intake. If you smoke, quit smoking. Health Concerns Date Concern 2023-11-25 Visit completed noe pena audio and video. Patient/Guardian agreed to visit via telehealth. Today, patient has chief complaint of: follow up care and comprehensive review.Reviewed Allergies, Medications, Active Medical conditions, past medical/surgical history, Social history. 2023-11-25 Most recent hospital stay(s) or ER visit(s) and precipitating factors: 12/01/22-cellulitis LE 2023-11-25 Open HEDIS Measure ronal silva: done 2023-11-25 PCP 12/12/23 ; RHEUM f/u 11/27/23
--- OUTSIDE RECORDS SUMMARY | 2024-11-28 12:15 | XMS_ITS | Encounter Summary ---
Author Organization [employer] Address [address] [facility] [address] [place] [address] Care Team Providers Care Leather Softener Name Role Phone Jeni Garcia MD Primary Care Provider + Reason for Visit * Reason Onset Date Comments C pap request 01/26/2023 Encounter Details Date Type Department Care Team ([facility] st Contact Info) Description 01/26/2023 Telephone [facility] MEDICINE [address] [place], [place] [phone] Jeni Garcia MD [address] [place], [place] [phone] C pap request Social History Tobacco Use Types Packs/Day Years [...] as of this encounter Miscellaneous Notes * Telephone Encounter - Aleshia Stark - 01/28/2023 2:34 PM EDT TC to patient and informed her BEAU will be discuss in next visit in February. She asked if there is any openings for a sooner appointment with provider. * Telephone Encounter - Agnes Adams - 01/28/2023 2:10 PM EDT TC from pt requesting status on CPAP machine. Please contact pt at [phone] (Mohawk speaker) * Telephone Encounter - Aleshia Stark - 01/28/2023 8:48 AM EDT noted * Telephone Encounter - Aleshia Stark - 01/26/2023 3:48 PM EDT Please review message below. If you agree patient can be scheduled for an appointment and a sleep study could be order as last one was back in 2011. Thank you * Telephone Encounter - Faustina Hunter - 01/26/2023 2:30 PM EDT Tc from pt requesting a C Pap machine . States old one stopped working . documented in this encounter Plan of Treatment Upcoming Encounters Date Type Department Care Team (Late st Contact Info) Description 05/28/2025 10:00 AM EDT Office Visit [facility] ADULT DENTAL [address] [place] [address] Blessing Bah documented as of this encounter Visit Diagnoses Not on filedocumented in this encounter Additional Health Concerns Assessment Noted Time PHQ-9 Depression Total Score: 0 11/16/19 23 10:53 AM EST documented as of this encounter Care Teams Leather Softener Relationship Specialty Start Date End Date Jeni Garcia MD [address] [place] [address] PCP - General Family Medicine 12/16/15 documented as of this encounter
--- OUTSIDE RECORDS SUMMARY | 2024-11-28 12:15 | XMS_ITS | Encounter Summary ---
Author Organization [facility] Address [address] [place] [address] Care Team Providers Care Insurance Claim Auditor Name Role Phone Jeni Garcia MD Primary Care Provider + [phone] Reason for Referral * Imaging (Routine) - Pending Review Specialty Diagnoses / Procedures Referred By Contluciano t Referred To Contact Diagnoses Localized swelling of right lower leg Procedures Vascular US duplex lower extremity venous right Kp Lyn DPM [address] [address] Phone: tel: fax: [facility] Referral ID Status Reason Start Date Expiration Date V isits Requested Visits Authorized [id number] Pending Review 11/26/2024 11/26/2025 1 1 Reason for Visit * Reason Comments Follow-up Casimiro foot pain Encounter Details Date Type Department Care Team (Late st Contact Info) Description 11/26/2024 1:30 PM EST Office Visit Orthopedic Surgery - [place] [address] [phone] Kp Lyn DPM [address] [address] Localized swelling of right lower leg (Primary Dx); Dermatophytosis of nail; Pain in toe of right foot; Pain in toe of left foot; Corns and callosities; Hammer toe of left foot; Acquired hammer toe of right foot; Metatarsalgia of both feet; Posterior tibial tendon dysfunction (PTTD) of right lower extremity; Posterior tibial tendon dysfunction (PTTD) of left lower extremity; Bilateral femoral artery stenosis (CMS/HCC); 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]; Type II diabetes mellitus with peripheral circulatory disorder (CMS/HCC) [E11.51] Social History Tobacco Use Types Packs/Day Years [...] - - Weight 79.8 kg (176 lb) 11/26/2024 1:13 PM EST Height 149.9 cm (4' 11.02 ) 11/26/2024 1:[address] Body Mass Index 35.53 11/26/2024 1:13 PM EST documented in this encounter Progress Notes * Kp Lyn DPM - 11/26/2024 1:30 PM EST Last MD visit 09/04/2024 David NICHOLE S Patient presents today concerning of acute swelling onset of her right leg she has been going on for last 3 days swollen achy throbbing she states it may still for her to walk she getting lots of pain in the back of her right calf denies shortness of breath Patient does report she has a longer painful thickened nails and skin which also bother her regularly and that is why she had appointment initially scheduled but notices a new complaint ROS: GENERAL: Pt denies nausea, fever, vomiting, chills, or shortness of breath. Pt in NAD. CARDIOLOGY: pt denies chest pain, palpitations LUNGS: pt denies shortness of breath MUSCULOSKELETAL: See HPI, otherwise no joint pain or swelling, back pain, or muscle pain. SKIN: see HPI, otherwise no lesions, rash or itching NEURO: No persistent headache, weakness or numbness The remainder of the review of systems is noncontributory PAST MEDICAL HISTORY: Patient Active Problem List Diagnosis Code Arthritis of carpometacarpal (CMC) joint of right thumb M18.11 Surgery follow-up Z09 SOCIAL HISTORY: Social History Tobacco Use Smoking status: Never Smokeless tobacco: Never Substance Use Topics Alcohol use: Never History Last Reviewed by Nohemy Larson on 11/07/2023 at 12:30 PM Sections Reviewed Medical, Surgical, Family, Custom, Tobacco, Alcohol, Drug Use ACTIVE MEDICATIONS: Current Outpatient Medications Medication Sig Dispense Refill losartan (COZAAR) 100 MG tablet Take 1 Tablet by mouth daily. Methotrexate 2.5 MG/ML Solution Take by mouth. gabapentin (NEURONTIN) 100 MG capsule Take 1 Capsule by mouth daily. levothyroxine (SYNTHROID, LEVOTHROID) 50 MCG tablet Take 1 Tablet by mouth daily. fluticasone-salmeterol (ADVAIR HFA) 115-21 MCG/ACT inhaler Inhale 2 Puffs into the lungs 2 times daily. acetaminophen (TYLENOL) 500 MG tablet Take 1 Tablet by mouth every 6 hours as needed. Cholecalciferol (Vitamin D3) 25 MCG (1000 UT) Cap Take by mouth. Biotin 99170 MCG Tab Take by mouth. famotidine (PEPCID) 40 MG tablet Take 40 mg by mouth daily. fluticasone 50 MCG/ACT nasal spray 2 Sprays by Each Nare route daily. omeprazole (PRILOSEC) 20 MG capsule Take 20 mg by mouth daily. folic acid (FOLVITE) 1 MG tablet Take 1 mg by mouth daily. hydrochlorothiazide (HYDRODIURIL) 25 MG tablet Take 25 mg by mouth daily. losartan (COZAAR) 100 MG tablet Take 100 mg by mouth daily. montelukast (SINGULAIR) 10 MG tablet Take 10 mg by mouth at bedtime. No current facility-administered medications for this visit. ALLERGIES: Codeine and Percocet [oxycodone-acetaminophen] PHYSICAL EXAM: Height 4' 11 (1.499 m), weight 176 lb (79.8 kg). Estimated body mass index is 35.55 kg/m?? as calculated from the following: Height as of this encounter: 4' 11 (1.499 m). Weight as of this encounter: 176 lb (79.8 kg). PODIATRIC EXAMINATION: GENERAL: Patient appears well nourished, with NAD. VASCULAR: Dorsalis pedis pulses are 0-4 right 1 out of 4 left and Posterior tibial pulses are 2/4 bilaterally. Capillary filling time within normal limits the digits. No pallor on elevation or rubor on dependency. Diminished hair growth. No varicosities. Denies rest pain or claudication pain. Positive Freitas's test positive Homans test positive pain on palpation of the calf right NEUROLOGICAL: Sharp/dull sensation intact, protective sensation intact 10/10 with 5.07 semmes jonah bilaterally, vibratory sensation with tuning fork intact to the tibial tuberosity. ORTHOPEDIC: Good muscle strength 5/5 of all flexors and extensors. Weakness of posterior tibial tendon bilateral dorsi flexion of ankle ,10 degrees, plantar flexion WNL. No muscle atrophy. Resolved pain erythema resolving DERMATOLOGICAL:. Toenails: Left Toenail(s) 1-5: Crumbling upon debridement, subungual debris, discoloration, dystrophy, elongation, mycotic appearance, onychomycosis, pain and thickening. Right Toenail(s) 1-5: Crumbling upon debridement, subungual debris, discoloration, dystrophy, elongation, mycotic appearance, onychomycosis, pain and thickening. Hyperkeratotic tissue subfirst metatarsal bilateral Leg resolving redness still very swollen bilaterally BIOMECHANICS: STJ ROM increased eversion inversion with some limited range of motion inversion, MTJROM crepitation bilaterally left worse than right, 1st MPJ ROM wnl. Advanced posterior tibial tendon dysfunction bilateral with weakness of bilateral posterior tibial tendon left worse than right IMAGING: Full read within epic minimally displaced fifth metatarsal shaft fracture Signs of healing fracture line still visualized IMPRESSION: 1. Localized swelling of right lower leg Vascular US duplex lower extremity venous right 2. Dermatophytosis of nail 3. Pain in toe of right foot 4. Pain in toe of left foot 5. Corns and callosities 6. Hammer toe of left foot 7. Acquired hammer toe of right foot 8. Metatarsalgia of both feet 9. Posterior tibial tendon dysfunction (PTTD) of right lower extremity 10. Posterior tibial tendon dysfunction (PTTD) of left lower extremity 11. Bilateral femoral artery stenosis (CMS/HCC) 12. 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 Type II diabetes mellitus with peripheral circulatory disorder (CMS/HCC) [E11.51] PLAN: Stat ultrasound ordered of the right leg to rule out DVT Patient sent to [facility] for ultrasound Discussed with patient ultrasound is positive she needs to follow-up with the emergency room for anticoagulation therapy and further treatment Patient sent to ED for evaluation Treatment options for advanced posterior tibial tendon dysfunction were discussed in detail AFO lace up brace was recommended patient declined Insoles orthotics were reviewed Would recommend considering UCBL custom orthotic bilateral patient declined she states she will think about it Reinforced appropriate shoe gear Follow-up in 1 month Debridement of mycotic toenails 6-10: Verbal informed consent was obtained from the patient. Greater than 6 nails were aseptically debrided in thickness and length with nail nippers Hyperkeratotic tissue debrided pared with a number #15 scalpel blade x2 Kp Lyn DPM documented in this encounter Plan of Treatment Upcoming Encounters Date Type Department Care Team (Late st Contact Info) Description 12/05/2024 11:00 AM EST Office Visit Orthopedic Surgery - [place] [address] [phone] Lazaro Saleh MD [address] [address] documented as of this encounter Results * Vascular US duplex lower extremity venous right (11/26/2024 4:18 PM EST) Anatomical Region Laterality Modality Vascular, Abdomen Ultrasound 11/26/2024 4:32 PM EST Impressions 11/26/2024 4:32 PM EST NO RIGHT LOWER EXTREMITY DEEP VENOUS THROMBOSIS. -------- FINAL REPORT -------- Dictated By: Sandy Cleaning Dictated Date: 11/26/2024 16:32 ET Assigned Physician: Sandy Cleaning Reviewed and Electronically Signed By: Sandy Cleaning Signed Date: 11/26/2024 16:32 ET Workstation ID: [id number] Transcribed By: Self Edit Transcribed Date: 11/26/2024 16:32 ET Narrative 11/26/2024 4:32 PM EST Ultrasound duplex right lower extremity. INDICATION: pain in extremities TECHNIQUE: 2-D and color Doppler imaging of the right lower extremity venous vasculature with compression and augmentation maneuvers. COMPARISON: No priors available. FINDINGS: There is normal flow, compression, and augmentation from the common femoral through the popliteal vein. No fluid collection. ??Visualized calf vessels unremarkable Procedure Note Sandy Cleaning MD - 11/26/2024 Ultrasound duplex right lower extremity. INDICATION: pain in extremities TECHNIQUE: 2-D and color Doppler imaging of the right lower extremityvenous vasculature with compression and augmentation maneuvers. COMPARISON: No priors available. FINDINGS: There is normal flow, compression, and augmentation from the commonfemoral through the popliteal vein. No fluid collection. Visualized calfvessels unremarkable IMPRESSION: NO RIGHT LOWER EXTREMITY DEEP VENOUS THROMBOSIS. -------- FINAL REPORT -------- Dictated By: Sandy Cleaning Dictated Date: 11/26/2024 16:32 ET Assigned Physician: Sandy Cleaning Reviewed and Electronically Signed By: Sandy Cleaning Signed Date: 11/26/2024 16:32 ET Workstation ID: [id number] Transcribed By: Self Edit Transcribed Date: 11/26/2024 16:32 ET us Kp Lyn DPM CV VASCULAR PROCEDURES Fi nal Result documented in this encounter Visit Diagnoses Diagnosis Localized swelling of right lower leg- Primary Dermatophytosis of nail Pain in toe of right foot Pain in soft tissues of limb Pain in toe of left foot Pain in soft tissues of limb Corns and callosities Hammer toe of left foot Acquired hammer toe of right foot Metatarsalgia of both feet Posterior tibial tendon dysfunction (PTTD) of right lower extremity Posterior tibial tendon dysfunction (PTTD) of left lower extremity Bilateral femoral artery stenosis (CMS/HCC) Stricture of artery 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
--- OUTSIDE RECORDS SUMMARY | 2024-11-28 12:15 | XMS_ITS | Encounter Summary ---
Author Organization [facility] Address [address] [facility] 7[address] [place] [address] Care Team Providers Care Business Mgr Name Role Phone Jeni Garcia MD Primary Care Provider + Reason for Visit * Reason Onset Date Comments C Pap 02/22/2023 Encounter Details Date Type Department Care Team ([facility] st Contact Info) Description 02/22/2023 Telephone [facility] MEDICINE [address] [place], [place] [phone] Jeni Garcia MD [address] [place], [place] [phone] C Pap Social History Tobacco Use Types Packs/Day Years [...] * Telephone Encounter - Aleshia Stark - 02/28/2023 2:10 PM EDT Script for CPAP generated for signature * Telephone Encounter - Krista Myrick - 02/25/2023 11:49 AM EDT Tc from pt requesting status on message below. Pt states she's having a procedure done on 03/01/23 and needs to bring machine to appointment. If any questions please contact pt at [phone] (swedish speaking) * Telephone Encounter - Temi Bojorquez - 02/22/2023 2:44 PM EDT Tc from Pt requesting a script for Cpap Machine talk on appt on 02/15 with provider. Pt give fax number to send script to [facility] # [phone]. PCP Dr[address] Garcia documented in this encounter Plan of Treatment Upcoming Encounters Date Type Department Care Team (Late st Contact Info) Description 05/28/2025 10:00 AM EDT Office Visit [facility] ADULT DENTAL [address] [place] [address] Blessing Bah documented as of this encounter Visit Diagnoses Not on filedocumented in this encounter Additional Health Concerns Assessment Noted Time PHQ-9 Depression Total Score: 0 11/16/19 10:53 AM EST documented as of this encounter Care Teams Business Mgr Relationship Specialty Start Date End Date Jeni Garcia MD [address] [place] [address] PCP - General Family Medicine 12/16/15 documented as of this encounter
--- OUTSIDE RECORDS SUMMARY | 2024-11-28 12:15 | XMS_ITS | Encounter Summary ---
Author Organization [employer] Address [address] [facility] [address] [place] [address] Care Team Providers Care Intensive Care Unit Registered Nurse Name Role Phone Jeni Garcia MD Primary Care Provider + Reason for Visit * Reason Onset Date Comments Hospital Follow-up 08/18/2023 Encounter Details Date Type Department Care Team ([facility] st Contact Info) Description 08/18/2023 Telephone [facility] MEDICINE [address] [place], [place] [phone] Jeni Garcia MD [address] [place], [place] [phone] Hospital Follow-up Social History Tobacco Use Types Packs/Day Years [...] Patient Health Questionnaire-2 Score 0 12/12/2023 Comments Unknown Sex and Gender Information Value Date Recorded Sex Assigned at Female 08/16/2022 10:14 AM EDT Legal Sex Female 10:14 AM EDT Gender Identity Female 08/16/2022 10:14 AM EDT Sexual Orientation Straight 08/16/2022 10 :14 AM EDT documented as of this encounter Miscellaneous Notes * Telephone Encounter - Barbara Menendez - 08/18/2023 12:48 PM EDT Tc from pt returning call. documented in this encounter Plan of Treatment Upcoming Encounters Date Type Department Care Team (Late st Contact Info) Description 05/28/2025 10:00 AM EDT Office Visit [facility] ADULT DENTAL [address] [place] [address] Blessing Bah documented as of this encounter Visit Diagnoses Not on filedocumented in this encounter Additional Health Concerns Assessment Noted Time PHQ-9 Depression Total Score: 0 11/16/19 23 10:53 AM EST documented as of this encounter Care Teams Intensive Care Unit Registered Nurse Relationship Specialty Start Date End Date Jeni Garcia MD [address] [place] [address] PCP - General Family Medicine 12/16/15 documented as of this encounter
--- OUTSIDE RECORDS SUMMARY | 2024-11-28 12:15 | XMS_ITS | Encounter Summary ---
Author Organization [facility] Address [address] [place] [address] Care Team Providers Care Tonal Regulator Name Role Phone Jeni Garcia MD Primary Care Provider + [phone] Reason for Visit * Reason Comments Results EGD Encounter Details Date Type Department Care Team (Latest Contact Info) Description 11/14/2024 1:40 PM EST Office Visit Gastroenterology - [address] [facility] [address] [place] [phone] Jing Fields, GUEST ASSOCIATE [address] [place] [phone] Gastroesophageal reflux disease, unspecified whether esophagitis present (Primary Dx) Social History Tobacco Use Types [...] - Inhaled Oxygen Concentration - - Weight 80.7 kg (178 lb) 11/14/2024 1:25 PM EST Height 149.9 cm (4' 11 ) 11/14/2024 1:25 PM EST Body Mass Index 35.95 11/14/2024 1:25 PM EST documented in this encounter Ordered Prescriptions Prescription Sig Dispense Quantity Refills Last Filled Start Date End Date pantoprazole (PROTONIX) 40 mg EC tabletIndications: Gastroesophageal reflux disease, unspecified whether esophagitis present Take 1 tablet (40 mg total) by mouth 2 (two) times a day. Do not crush, chew, or split. 60 each 11 11/14/2024 11/14/2025 documented in this encounter Progress Notes * Jing Fields, GUEST ASSOCIATE - 11/14/2024 1:40 PM EST CHIEF COMPLAINT: Results (EGD) DATE OF LAST ENDOSCOPIC PROCEDURES: HPI: Joan Armendariz is a 79 y.o. old female who was originally referred to us by Jeni Garcia MD now presents to the gastroenterology department today unaccompanied by any family today. A virtualinterpretor was used for this visit. Ms. Armendariz recently completed upper endoscopy with Dr. Becerril. We reviewed those results which was inflammation of the lower esophagus only. She was negative for Barretts. She does not feel the Omeprazole works for her and I will change her to Pantoprazole. She denies NSAID use. She tends towards constipation and we discusses adding Metamucil daily and increasing her water intake. She denies rectal bleeding or abdominal pain. At age 79 she no longer does colonoscopies ROS: GENERAL: No malaise, significant weight loss or fever HEENT: No changes in hearing or vision or swallowing problems RESPIRATORY: No cough, wheezing or shortness of breath CARDIOVASCULAR: No chest pain, leg swelling or palpitations GI: See H&P The remainder of the review of systems is reviewed and negative. PAST MEDICAL HISTORY: CKD III RA COPD Eczema HTN Hyptthyroid Chronic back pain Mesenteric artery stenosis BEAU PAST SURGICAL HISTORY: Past Surgical History: Procedure Laterality Date SHOULDER SURGERY Left 01/06/2023 PROCEDURE: HISTORICAL SHOULDER SURGERY; COMMENT: RTSA SOCIAL HISTORY: Social History Tobacco Use Smoking status: Never Smokeless tobacco: Never Substance Use Topics Alcohol use: Never FAMILY HISTORY: No family history on file. ACTIVE MEDICATIONS: Current Outpatient Medications Medication Sig Dispense Refill acetaminophen (TYLENOL) 500 mg tablet Take 1 Tablet by mouth every 6 hours as needed. BIOTIN ORAL Take by mouth. cholecalciferol (VITAMIN D-3) 25 mcg (1,000 unit) [...] capsule Take 20 mg by mouth daily. No current facility-administered medications for this visit. ALLERGIES: Allergies Allergen Reactions Codeine Dizziness Morphine Oxycodone-Acetaminophen Dizziness Other Reaction(s): Rash/Dermatitis Tramadol PHYSICAL EXAM: Visit Vitals Ht 1.499 m (59 ) Wt 80.7 kg (178 lb) BMI 35.95 kg/m?? Smoking Status Never BSA 1.75 m?? APPEARANCE: Alert and in no acute distress Seen with virtual interpretor EYES: PERRLA, conjunctiva and sclera normal. HEART: RRR with normal S1 and S2, no murmurs appreciated LUNG: clear to auscultation ABDOMEN: obese nontender without masses NEURO: Awake, alert and oriented x 3 Assessment & Plan Gastroesophageal reflux disease, unspecified whether esophagitis present Change PPI to Pantoprazole 40mg QD Orders: pantoprazole (PROTONIX) 40 mg EC tablet; Take 1 tablet (40 mg total) by mouth 2 (two) times a day. Do not crush, chew, or split. I would like to thank Jeni Garcia MD for the opportunity to partake in the patient's care. Board Certified Gastroenterology [facility] W [phone] [place] [phone] [email or web address] Jing Fields NP documented in this encounter Plan of Treatment Upcoming Encounters Date Type Department Care Team (Late st Contact Info) Description 12/05/2024 11:00 AM EST Office Visit Orthopedic Surgery - [place] [address] [phone] Lazaro Saleh MD [address] [address] documented as of this encounter Visit Diagnoses Diagnosis Gastroesophageal reflux disease, unspecified whether esophagitis present- Primary documented in this encounter Care Teams Tonal Regulator Relationship Specialty Start Date End Date Jeni Garcia MD [address] [phone] PCP - General 05/19/21 documented as of this encounter
--- OUTSIDE RECORDS SUMMARY | 2024-11-28 12:15 | XMS_ITS | Encounter Summary ---
Author Organization [facility] Address [address] [place] [address] Care Team Providers Care Redipper Name Role Phone Jeni Garcia MD Primary Care Provider + [phone] Reason for Referral * Imaging (Routine) - Pending Review Specialty Diagnoses / Procedures Referred By Contac t Referred To Contact Diagnoses Localized swelling of right lower leg Procedures Vascular US duplex lower extremity venous right Kp Lyn DPM [address] [address] Phone: tel: fax: [facility] Referral ID Status Reason Start Date Expiration Date V isits Requested Visits Authorized [id number] Pending Review 11/26/2024 11/26/2025 1 1 Reason for Visit * Imaging (Routine) - Pending Review Specialty Diagnoses / Procedures Referred By Contac t Referred To Contact Diagnoses Localized swelling of right lower leg Procedures Vascular US duplex lower extremity venous right Kp Lyn DPM [address] [address] Phone: tel: fax: [facility] Referral ID Status Reason Start Date Expiration Date V isits Requested Visits Authorized [id number] Pending Review 11/26/2024 11/26/2025 1 1 Encounter Details Date Type Department Care Team (Latest Contact Info) Description 11/26/2024 3:53 PM EST - 11/26/2024 11:59 PM EST Hospital Encounter [facility] Ultrasound [address] [place] [address] Localized swelling of right lower leg Discharge Disposition: Home or Self Care Social History Tobacco Use Types Packs/Day Years [...] on file documented as of this encounter Medications at Time of Discharge acetaminophen (TYLENOL) 500 mg tablet Take 1 Tablet by mouth every 6 hours as needed. BIOTIN ORAL Take by mouth. carvediloL (COREG) 6.25 mg tablet TAKE 1 TABLET BY MOUTH WITH BREAKFAST AND EVENING MEAL cholecalciferol (VITAMIN D-3) 25 mcg (1,000 unit) capsule Take by mouth. famotidine (PEPCID) 40 mg tablet Take 40 mg by mouth daily. fluticasone propion-salmetero L (ADVAIR HFA) 115-21 mcg/actuation inhaler Inhale 2 Puffs into the lungs 2 times daily. fluticasone propionate (FLONASE) 50 mcg/actuation nasal spray 2 Sprays by Each Nare route daily. folic acid (FOLVITE) 1 mg tablet Take 1 mg by mouth daily. gabapentin (NEURONTIN) 100 mg capsule Take 1 Capsule by mouth daily. hydroCHLOROthiazi de (HYDRODIURIL) 25 mg tablet Take 25 mg [...] mg by mouth daily. pantoprazole (PROTONIX) 40 mg EC tabletIndications :Gastroesophageal reflux disease, unspecified whether esophagitis present Take 1 tablet (40 mg total) by mouth 2 (two) times a day. Do not crush, chew, or split. 60 each 11/14/2024 documented as of this encounter Discharge Disposition Disposition Code Departure Means Destination Home or Self Care documented in this encounter Plan of Treatment Upcoming Encounters Date Type Department Care Team (Late st Contact Info) Description 12/05/2024 11:00 AM EST Office Visit Orthopedic Surgery - [place] 250 175 [facility] [address] [place] [phone] Lazaro Saleh MD [address] [facility] [address] [place] [address] documented as of this encounter Procedures Procedure Name Priority Date/Time Associated Diagnosis Comments VAS US DUPLEX LOWER EXT VENOUS RIGHT Routine 11/26/2024 4:18 PM EST Localized swelling of right lower leg documented in this encounter Results * Vascular US duplex [...] Signed Date: 11/26/2024 16:32 ET Workstation ID: [id number] Transcribed By: Self Edit Transcribed Date: 11/26/2024 [...] Signed Date: 11/26/2024 16:32 ET Workstation ID: [id number] Transcribed By: Self Edit Transcribed Date: 11/26/2024 16:32 ET us Kp Lyn DPM CV VASCULAR PROCEDURES Fi nal Result documented in this encounter Visit Diagnoses Diagnosis Localized swelling of right lower leg documented in this encounter Care Teams Redipper Relationship Specialty Start Date End Date Jeni Garcia MD [address] [phone] PCP - General 05/19/21 documented as of this encounter
--- OUTSIDE RECORDS SUMMARY | 2024-11-28 12:15 | XMS_ITS | Continuity of Care Document ---
Author Organization [facility] Address [address] [place] [phone]- Care Team Providers Care Extension Specialist Name Role Phone Jose CABRERA, Jeni Rose Primary Care Physician Encounter [facility] Date(s): 10/05/24 - 11/04/24 [facility] [address] [place] [address] Attending Physician: Admtr, Ar8 Admitting Physician: Admtr, Ar8 Referring Physician: Admtr, Ar8 Encounter Type: Triage Allergies, Adverse Reactions, Alerts Substance Criticality Severity [...] 5 Refills, Maintenance, 10/31/24 4:32:00 PM EST, [facility]/pharmacy #[id number], Partial fill upon patient request if [...] 5 Refills, Maintenance, 10/31/24 4:29:00 PM EST, [facility]/pharmacy #[id number], Partial fill upon patient request if [...] Refills, Maintenance, 03/10/22 2:32:00 PM EDT, Capsule, [facility]/pharmacy #[id number], Partial fill upon patient request if the [...] 10:22:00 PM EDT, Route to Pharmacy Electronically, [facility]/pharmacy #[id number], Partial fill upon patient request if the [...] stenosis Confirmed Active Venous insufficiency Confirmed Active Social History Social History Type Response Smoking Status Never (less than 100 in lifetime) entered on: 08/21/21 Sex Sex Representation Female (finding) Patient Care team information Care Team Personnel Name: Abdulkadir Mirza RN Position: [facility] RN Member Role: Primary Care Nurse Name: Jeni Garcia MD Position: [facility] Outreach Member Role: PCP Address: [address] [place] [address] Telecom: Name: Nancy Aguilera RN Position: [facility] RN Member Role: Primary Care Nurse Care Team Related Persons Name: JULIEN LAU Name: ELHAM LAU Insurance Providers Guarantor name: BRYAN Health Plan Information #: 1 Payer: [facility] OPT Member Number: BRYAN Policy Number: NA Group Number: BRYAN Health Plan Information #: 2 Payer: [facility] Member Number: NA Policy Number: NA Group Number: NA
--- OUTSIDE RECORDS SUMMARY | 2024-11-28 12:15 | XMS_ITS | Clinical Summary ---
Author Organization 175 [facility] Address 175 [place] [address] Phone Care Team Providers Care General Manager Food Name Role Phone Jeni Garcia MD Primary Care Provider + [phone] Allergies Active Allergy Reactions Criticality Noted Date Comments Codeine Dizziness 08/16/2022 Morphine 11/07/2023 Oxycodone-Acetaminophen Dizziness 08/16/2022 Other Reaction(s): Rash/Dermatitis Tramadol 11/14/2024 Medications levothyroxine (SYNTHROID, LEVOTHROID) 50 mcg tablet Take 1 Tablet by mouth daily. Active methotrexate (Xatmep) 2.5 mg/mL Take by mouth. Activ e gabapentin (NEURONTIN) 100 mg capsule Take 1 Capsule by mouth daily. Active fluticasone propion-salmeter oL (ADVAIR HFA) 115-21 mcg/actuation inhaler Inhale 2 Puffs into the lungs 2 times daily. Active acetaminophen (TYLENOL) 500 mg tablet Take 1 Tablet by mouth every 6 hours as needed. Active cholecalciferol (VITAMIN D-3) 25 mcg (1,000 unit) capsule Take by mouth. Activ e BIOTIN ORAL Take by mouth. Act jesus famotidine (PEPCID) 40 mg tablet Take 40 mg by mouth daily. Active fluticasone propionate (FLONASE) 50 mcg/actuation nasal spray 2 Sprays by Each Nare route daily. Active omeprazole (PriLOSEC) [address] capsule Take 20 mg by mouth daily. Active folic acid (FOLVITE) 1 mg tablet Take 1 mg by mouth daily. Active hydroCHLOROthiaz rae (HYDRODIURIL) 25 mg tablet Take 25 mg by mouth daily. Active losartan (COZAAR) 100 mg tablet Take 100 mg by mouth daily. Active montelukast (SINGULAIR) 10 mg tablet Take 10 mg by mouth at bedtime. Active pantoprazole (PROTONIX) 40 mg EC tabletIndication s:Gastroesophage al reflux disease, unspecified whether esophagitis present Take 1 tablet (40 mg total) by mouth 2 (two) times a day. Do not crush, chew, or split. 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 e 01/20/2024 Meralgia paresthetica of right side 04/26/2023 Class 1 obesity 04/12/2023 Asthma 10/19/2022 Sleep apnea 10/19/2022 Greater trochanteric pain syndrome 10/19/2022 Tendinitis of right rotator cuff 10/19/2022 Venous insufficiency of leg 10/19/2022 Arthritis of carpometacarpal (CMC) joint of righ t thumb 04/06/2021 Osteopenia 06/23/2018 Chronic low back pain 06/28/2017 Hypothyroidism 06/28/2017 Rheumatoid arthritis, adult 06/28/2017 Chronic obstructive pulmonary disease 12/11/2012 GERD (gastroesophageal reflux disease) 2 Hypertension 04/12/2012 Encounters Date Type Department Care Team Description 11/26/2024 3:53 PM EST - 11/26/2024 11:59 PM EST Hospital Encounter [facility] Ultrasound [address] [place] [address] Localized swelling of right lower leg Discharge Disposition: Home or Self Care 11/26/2024 1:30 PM EST Office Visit Orthopedic Surgery [facility] [address] [phone] Kp Lyn DPM Localized swelling of right lower leg (Primary [...] mellitus with peripheral circulatory disorder (CMS/HCC) [E11.51] 11/15/2024 11:00 AM EST Office Visit Orthopedic [facility] [address] [phone] Eloisa Torres NP Post-traumatic osteoarthritis of left knee (Primary Dx); History of total right knee replacement (TKR); Personal history of DVT (deep vein thrombosis) 11/14/2024 1:40 PM EST Office Visit Gastroenterology - [address] [phone] Jing Fields NP Gastroesophageal reflux disease, unspecified whether esophagitis present (Primary Dx) 11/14/2024 Telephone Gastroenterology - [address] [facility] [address] [phone] Jessy Aguila MA 10/31/2024 Telephone Gastroenterology - [address] [phone] Emma Leonard MA 10/31/2024 Telephone Gastroenterology - [address] [facility] [address] [phone] Emma Leonard MA 10/12/2024 Telephone Gastroenterology - [address] [facility] [address] [phone] Jessy Aguila MA 10/04/2024 Lab Requisition [facility] - Main Lab 299 [facility] [place] [phone] Samy Becerril MD 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 09/20/2024 Telephone Gastroenterology - [address] [facility] [address] [place] [phone] Samy Becerril MD from Last 3 Months Surgical History Surgery Date Site/Laterality Comments SHOULDER SURGERY 01/06/2023 Left PROCEDURE: HISTORICAL SHOULDER SURGERY; COMMENT: RTSA Social History Tobacco Use Types Packs/Day Years Used Date Smoking Tobacco: Never Smokeless Tobacco: Never Alcohol Use Standard Drinks/Week Comments Never 0 (1 standard drink = 0.6 oz pur e alcohol) Comments Unknown Sex and Gender Information Value Date Recorded Sex Assigned at Not on file Legal Sex Female 2:52 AM EST Gender Identity Not on file Sexual Orientation Not on file Obstetrics History Last Filed Vital Signs Vital Sign Reading Time Taken Comments Blood Pressure 180/79 11/07/2023 12:01 PM EST Sitting L Arm Pulse 70 11/07/2023 12:01 PM EST Temperature - - Respiratory Rate - - Oxygen Saturation - - Inhaled Oxygen Concentration - - Weight 79.8 kg (176 lb) 11/26/2024 1:13 PM EST Height 149.9 cm (4' 11.02 ) 11/26/2024 1:13 PM EST Body Mass Index 35.53 11/26/2024 1:13 PM EST Plan of Treatment Upcoming Encounters Date Type Department Care Team (Late st Contact Info) Description 12/05/2024 11:00 AM EST Office Visit Orthopedic Surgery - [place] 250 175 [facility] 250 [place] [phone] Lazaro Saleh MD 175 [facility] 250 [place] [address] Health Maintenance Due Date Last Done Comments Diabetes: Annual GFR (Glomerular Filtration Rate) 1943 Diabetes: Annual Foot Exam 1953 Diabetes: Annual Retina Eye Exam 1955 Zoster Vaccines (2 of 3) 03/19/2015 01/22/2015 RSV Immunization Patients 60+ Years Old (1 - 1-dose 75+ series) 2018 Cholesterol Screening (Lipid Panel) 09/25/2022 Falls Risk Assessment 09/25/2022 Medicare Annual Wellness Visit 09/25/2022 Osteoporosis Screening (Bone Density Screening) 09/25/2022 Social Influencers of Health Screening 09/25/2022 Depression Screening 11/16/2023 11/16/2022 COVID-19 Vaccine ( season) 2024 09/23/2021, 12/30/2020, 12/02/2020 Influenza Vaccine (#1) 2024 , 07/22/2022, 09/23/2021, Additional history exists Hypertension/CHF/CAD Annual BMP Blood Test 11/14/2024 Diabetes: Blood Sugar Control Test (HGBA1C) 03/26/2025 09/25/2024, 09/25/2024, 08/19/2023 Diabetes: Annual Urine Albumin-Creatinine Ratio (uACR) 09/25/2025 09/25/2024 DTaP,Tdap,and Td Vaccines (6 - Td or Tdap) 12/12/2033 12/12/2023, 06/01/2011, 02/23/1999, Additional history exists MMR Vaccines Aged Out 01/11/1994 No longer eligi ble based on patient's age to complete this topic Hepatitis B Vaccines Completed 12/13/1994, 03/04/1994, 02/02/1994 Pneumococcal Vaccine: 50+ Years Completed 10/31/2023, 10/05/2016, 09/08/2015, Additional history exists HIB Vaccines Aged Out No longer eligi ble based on patient's age to complete this topic HPV Vaccines Aged Out No longer eligi ble based on patient's age to complete this topic Hepatitis A Vaccines Aged Out No long er eligible based on patient's age to complete this topic IPV Vaccines Aged Out No longer eligi ble based on patient's age to complete this topic Meningococcal ACWY Vaccine Aged Out N o longer eligible based on patient's age to complete this topic Meningococcal B Vacine Aged Out No lo nger eligible based on patient's age to complete this topic RSV Immunization Patients Under 20 months Aged Out No longer eligible based on patient's age to complete this topic Varicella Vaccines Aged Out No longer eligible based on patient's age to complete this topic Procedures Procedure Name Priority Date/Time Associated Diagnosis Comments VAS US DUPLEX LOWER EXT VENOUS RIGHT Routine 11/26/2024 4:18 PM EST Localized swelling of right lower leg XR KNEE 4+ VIEWS LEFT Routine 11/15/2024 10:43 AM EST Pain EXTERNAL ENDOSCOPY REPORT Routine 10/03/2024 1:56 PM EST TISSUE EXAM Routine 10/03/2024 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 from Last 3 Months Results * Vascular US duplex lower extremity [...] Signed Date: 11/26/2024 16:32 ET Workstation ID: [id number] Transcribed By: Self Edit Transcribed Date: 11/26/2024 [...] Signed Date: 11/26/2024 16:32 ET Workstation ID: [id number] Transcribed By: Self Edit Transcribed Date: 11/26/2024 16:32 ET Kp Lyn DPM CV VASCULAR PROCEDURES Fi nal Result * XR Knee 4+ Views Left (11/15/2024 10:43 AM EST) Anatomical Region Laterality Modality Lower Extremities, Knee Left Computed Radiography Narrative 11/15/2024 11:28 AM EST Date of Visit: 11/15/2024 Reason for visit: ?? Left knee pain Views: AP, Lateral, Silvestre, [place] left knee Findings: On AP view there is narrowing through the medial greater than lateral compartment of the left knee with subchondral sclerosis and small marginal osteophytes. ??Note of stable appearing right total knee replacement. ??Moderate degenerative changes seen through the patellofemoral compartment on sunrise view. ??No acute findings. Impression: Moderate osteoarthritis left knee. Eloisa Torres RABBET OPERATOR IMG XR PROCEDURES Final Result * External Endoscopy (10/03/2024 1:56 PM EST) Anatomical Region Laterality Modality Endoscopy Historical Provider GI~PROCEDURE ORDERABLES F inal Result * Tissue Exam (10/03/2024) Final Diagnosis A. Distal esophagus, biopsy: Esophageal squamous mucosa with reactive epithelial changes including focal basilar hyperplasia; no intraepithelial eosinophils are identified. Gastric cardiac type mucosa with chronic, focally active inflammation. No intestinal metaplasia and no dysplasia identified. B. Mid-esophagus, biopsy: Esophageal squamous mucosa without diagnostic histopathologic change. No intraepithelial eosinophils and no glandular epithelium identified. 10/05/2024 12:26 PM EST [facility] Clinical Information Heartburn,esophag eal reflux symptoms that persist despite appropriate therapy Finding:R/O oliver's 10/05/2024 12:26 PM EST [facility] Gross Description A. Esophagus, distal [...] on one slide. 10/05/2024 12:26 PM EST [facility] Disclaimer Unless otherwise specified, all tissue is 10% NB formalin fixed and paraffin embedded. 10/05/2024 12:26 PM EST [facility] Tissue Esophageal structure / Unknown 10/03/2024 10/04/2024 5:36 AM EST Tissue specimen (specimen) Esophageal structure / Unknown 10/03/2024 10/04/2024 5:36 AM EST Samy Becerril MD LAB PATHOLOGY ORDERABLES Fi nal Result [facility] [address] [place] [address], from Last 3 Months Insurance MEDICAID - [place] [employer] MEDICARE Advance Directives Documents on File Type Date Recorded Patient Spanner Operator Expl anation Health Care Decision (hx) 03/27/2019 AD CEJA DIRECTIVE Health Care Decision (hx) 03/27/2019 AD CEJA DIRECTIVE Health Care Decision (hx) 03/27/2019 AD CEJA DIRECTIVE Health Care Decision (hx) 03/27/2019 AD CEJA DIRECTIVE Health Care Decision (hx) 03/27/2019 AD CEJA DIRECTIVE Health Care Decision (hx) 03/27/2019 AD CEJA DIRECTIVE Health Care Decision (hx) 03/27/2019 AD CEJA DIRECTIVE Health Care Decision (hx) 03/27/2019 AD CEJA DIRECTIVE Health Care Decision (hx) 03/27/2019 AD CEJA DIRECTIVE Health Care Decision (hx) 03/27/2019 AD CEJA DIRECTIVE Health Care Decision (hx) 03/27/2019 AD CEJA DIRECTIVE Health Care Decision (hx) 03/27/2019 AD CEJA DIRECTIVE Health Care Decision (hx) 03/27/2019 AD CEJA DIRECTIVE Health Care Decision (hx) 03/27/2019 AD CEJA DIRECTIVE Health Care Decision (hx) 03/27/2019 AD CEJA DIRECTIVE Health Care Decision (hx) 03/27/2019 AD CEJA DIRECTIVE Health Care Decision (hx) 03/27/2019 AD CEJA DIRECTIVE Health Care Decision (hx) 03/27/2019 AD CEJA DIRECTIVE Care Teams General Manager Food Relationship Specialty Start Date End Date Jeni Garcia MD [address] [place] [phone] PCP - General 05/19/21
--- OUTSIDE RECORDS SUMMARY | 2024-11-28 12:15 | XMS_ITS | Encounter Summary ---
Author Organization [employer] Address [address] [facility] [address] [place] [address] Care Team Providers Care Automotive Welder Name Role Phone Jeni Garcia MD Primary Care Provider + Reason for Visit * Reason Comments Med Refill Encounter Details Date Type Department Care Team (Late st Contact Info) Description 10/19/2023 Refill [facility] MED[facility]INE [address] [place], [place] [phone] Jayshree Andrade DO [address] [place], [place] [phone] Social History Tobacco Use Types Packs/Day Years Used Date Smoking Tobacco: Never Passive Smoke Exposure: Never Smokeless Tobacco: Never Alcohol Use Standard Drinks/Week Comments Never 0 (1 standard drink = 0.6 oz pur e alcohol) Depression Answer Date Recorded Patient Health Questionnaire-9 Score 0 11/16/2022 Housing Stability Answer Date Recorded What is your housing situation today? I have dimitry adams 08/01/[address] you li ve. Do you have problems with any of the following? None of the above 08/01/2023 Food Insecurity Answer Date Recorded Within the past 12 months, y ou worried that your food would run out before you got money to buy more: Never True 08/01/2023 Within the past 12 months,th e food you bought just didn't last and you didn't have enough money to get more: Never True Transportation Answer Date Recorded In the past 12 months, has l ack of transportation kept you from medical appts, meetings, work or from getting things needed for daily living? No 08/01/2023 Utilities Answer Date Recorded In the past 12 months, has t he electric, gas, oil or water company threatened to shut off services in your home? No 08/01/2023 Depression Answer Date Recorded Patient Health Questionnaire-2 [...] Description 05/28/2025 10:00 AM EDT Office Visit [facility] ADULT DENTAL [address] [place] [address] [place] documented as of this encounter Visit Diagnoses Not on filedocumented in this encounter Additional Health Concerns Assessment Noted Time PHQ-9 Depression Total Score: 0 11/16/19 23 10:53 AM EST documented as of this encounter Care Teams Automotive Welder Relationship Specialty Start Date End Date Jeni Garcia MD [address] [place] [address] PCP - General Family Medicine 12/16/15 documented as of this encounter
--- OUTSIDE RECORDS SUMMARY | 2024-11-28 12:16 | XMS_ITS ---
Author Organization Unknown [facility] Start Date Provider Encounter for Check-up [id number]
--- OUTSIDE RECORDS SUMMARY | 2024-11-28 12:16 | XMS_ITS | Encounter Summary ---
Author Organization [employer] Address [address] [facility] [address] [place] [address] Care Team Providers Care Home Insurance Agent Name Role Phone Jeni Garcia MD Primary Care Provider + Encounter Details Date Type Department Care Team (Late st Contact Info) Description 11/01/2024 Orders Only [facility] External Provider, [facility] Social History Tobacco Use Types Packs/Day Years [...] Description 05/28/2025 10:00 AM EDT Office Visit [facility] ADULT DENTAL [address] [place] [id number] [place] documented as of this encounter Procedures Procedure Name Priority Date/Time Associated Diagnosis Comments FL GUIDANCE IN TREATMENT ROOM Routine 11/01/2024 12:48 PM EST documented in this encounter Results * FL Guidance in Treatment Room (11/01/2024 12:48 PM EST) Anatomical Region Laterality Modality X-Ray Angiograph y 11/01/2024 12:4 8 PM EST Narrative 11/02/2024 1:50 PM EST ? [facility] ?[address] ?[place] [address] ? Fluoroscopy Report ? Signed ? Patient: Joan Armendariz ?MR#: [id number] ?? [id number] ? : 1945 ?Acct:[id number] ? Age/Sex: 79 / F ?ADM Date: 11/01/24 ? Loc: CF ? Attending Dr: Danis Diamond MD ? Ordering Physician: Nohemy Matthew APRN, CABLE DISPATCHER ?? Date of Service: 11/01/24 ?? Procedure(s): FL guidance in treatment room ?? Accession Number(s): [id number] ? cc: Jeni Garcia MD; Nohemy Matthew APRN, CABLE DISPATCHER ? EXAMINATION: ??FL GUIDANCE ONLY ? HISTORY: M54.16 - Radiculopathy, lumbar region ? COMPARISON: ?? None available. ? TECHNIQUE: ?? Fluoroscopy time: 0.2 minutes. ?? Cumulative Dose: 6.31 mGy. ?? DAP: 0.0328 uGy-m2 (microgray-meter squared). ?? Images: 4. ? FINDINGS: ?? Images demonstrate a probe directed toward a lumbar vertebral body. ? FL/FL guidance in treatment room ?? IMPRESSION: ?? Fluoroscopy during procedure. Please see procedure report for ?? additional information. ? Electronically signed by: ??Bony Ricks MD ??11/02/2024 01:47 PM EST ?? RP ? Dictated By: ?Bony Ricks MD ? Signed By: ?<Electronically signed by Bony Ricks MD in OV> ?11/02/24 1347 ? DD/ 1248 ? TD/TT: 11/01/24 1259 ? Bi Data Modeler: ? Procedure Note Donbrennenter, Image - 11/02/2024 [place] [address] Fluoroscopy Report Signed Patient: Joan Armendariz RMR#: [id number] : 1945cct:[id number] Age/Sex: 79 / FADM Date: 11/01/24 Loc: CF Attending Dr: Danis Diamond MD Ordering Physician: Nohemy Matthew APRN, CNP Date of Service: 11/01/24 Procedure(s): FL guidance in treatment room Accession Number(s): [id number] cc: Jeni Garcia MD; Nohemy Matthew APRN, CNP EXAMINATION: FL GUIDANCE ONLY HISTORY: M54.16 - Radiculopathy, lumbar region COMPARISON: None available. TECHNIQUE: Fluoroscopy time: 0.2 minutes. Cumulative Dose: 6.31 mGy. DAP: 0.0328 uGy-m2 (microgray-meter squared). Images: 4. FINDINGS: Images demonstrate a probe directed toward a lumbar vertebral body. FL/FL guidance in treatment room IMPRESSION: Fluoroscopy during procedure. Please see procedure report for additional information. Electronically signed by: Bony Ricks MD 11/02/2024 01:47 PM EST Dictated By: Bony Ricks MD Signed By: <Electronically signed by Bony Ricks MD in OV> 11/02/24 1347 DD/ 1248 TD/TT: 11/01/24 1259 Bi Data Modeler: [facility] External Provider IMG IR PROCEDURES Edited Result - Final documented in this encounter Visit Diagnoses Not on filedocumented in this encounter Additional Health Concerns Assessment Noted Time PHQ-9 Depression Total Score: 0 11/16/19 23 10:53 AM EST documented as of this encounter Care Teams Home Insurance Agent Relationship Specialty Start Date End Date Jeni Garcia MD [address] [place] [id number] PCP - General Family Medicine 12/16/15 documented as of this encounter
--- OUTSIDE RECORDS SUMMARY | 2024-11-28 12:16 | XMS_ITS | Encounter Summary ---
Author Organization [employer] [facility] Address [address] [place] [address] [address] [place] [address] Care Team Providers Care Budget Technician Name Role Phone Jeni Garcia MD Primary Care Provider + Encounter Details Date Type Department Care Team (Late st Contact Info) Description 09/27/2022 [facility] Only [facility] [address] [place], [place] [phone] Jeni Garcia MD [address] [place], [place] [phone] Social History Tobacco Use Types Packs/Day Years Used Date Smoking Tobacco: Never Assessed Comments Unknown Sex and Gender Information Value [...] Description 05/28/2025 10:00 AM EDT Office Visit [facility] ADULT DENTAL [address] [place], [place] [phone] [place] documented as of this encounter Visit Diagnoses Not on filedocumented in this encounter Care Teams Budget Technician Relationship Specialty Start Date End Date Jeni Garcia MD [address] [place], [place] [phone] PCP - General Family Medicine 12/16/15 documented as of this encounter
--- OUTSIDE RECORDS SUMMARY | 2024-11-28 12:16 | XMS_ITS | Encounter Summary ---
Author Organization [employer] [facility] Address [address] [facility] [address] [place] [address] Care Team Providers Care Slitting Machine Operator Name Role Phone Jeni Garcia MD Primary Care Provider + Reason for Visit * Reason Onset Date Comments DCF Form 11/13/2024 I called to get more information, about a Family Resource Parent Medical Form, from [employer]. The patient needs to state whether she will be an adoptive parent, or will be living in the home of someone who will be an adoptive parent. I reached her voicemail, and left a message asking her to call the [employer] department at ext [phone]. Encounter Details Date Type Department Care Team (Late st Contact Info) Description 11/13/2024 Telephone [facility] MEDICINE [address] [place] [address] Jeni Garcia MD [address] [place] [address] DCF Form (I called to get more information, about a Family Resource Parent Medical Form, from [employer]. The patient needs to state whether she will be an adoptive parent, or will be living in the home of someone who will be an adoptive parent. I reached her voicemail, and left a message asking her to call the [employer] department at ext [phone].) Social History Tobacco Use Types Packs/Day Years [...] encounter Miscellaneous Notes * Telephone Encounter - Ananya Hines [place] - 11/13/2024 3:27 PM EST I called to get more information, about a Family Resource Parent Medical Form, from [employer]. The patient needs to state whether she will be an adoptive parent, or will be living in the homeof someone who will be an adoptive parent. I reached her voicemail, and left a message asking her to call the forms department at ext [phone]. documented in this encounter Plan of Treatment Upcoming Encounters Date Type Department Care Team (Late st Contact Info) Description 05/28/2025 10:00 AM EDT Office Visit [facility] ADULT DENTAL [address] [place] [address] [place] documented as of this encounter Visit Diagnoses Not on filedocumented in this encounter Additional Health Concerns Assessment Noted Time PHQ-9 Depression Total Score: 0 11/16/19 23 10:53 AM EST documented as of this encounter Care Teams Slitting Machine Operator Relationship Specialty Start Date End Date Jeni Garcia MD [address] [place] [id number] PCP - General Family Medicine 12/16/15 documented as of this encounter
--- OUTSIDE RECORDS SUMMARY | 2024-11-28 12:16 | XMS_ITS | Encounter Summary ---
Author Organization [employer] [facility] Address [address] [facility] [address] [place] [address] Care Team Providers Care Paper Feeder Name Role Phone Jeni Garcia MD Primary Care Provider + Encounter Details Date Type Department Care Team (Latest Contact Info) Description 04/28/2021 Abstract [facility] CONVERSIONS Dental, Provider, DDS Social History Tobacco Use Types Packs/Day Years [...] Description 05/28/2025 10:00 AM EDT Office Visit [facility] ADULT DENTAL [address] [place] [address] [place] documented as of this encounter Visit Diagnoses Not on filedocumented in this encounter Care Teams Paper Feeder Relationship Specialty Start Date End Date Jeni Garcia MD [address] [place], [place] [phone] PCP - General Family Medicine 12/16/15 documented as of this encounter
--- OUTSIDE RECORDS SUMMARY | 2024-11-28 12:16 | XMS_ITS | Clinical Summary ---
Author Organization [employer] Address [address] [place] [address] Care Team Providers Care Civil Engineering Assistant Name Role Phone Jeni Garcia MD Primary Care Provider + Allergies Active Allergy Reactions Criticality Noted Date Comments Acetaminophen Hives 09/04/2013 Codeine Anaphylaxis,Dizziness,Rash High 3 Hydrocodone Itching 10/09/2014 Morphine Dizziness,Hallucinations Low 10/26/2012 Oxycodone Hives Low 09/04/2013 Oxycodone-Acetaminophen Rash Low 09/03/2021 Tramadol Headache High 06/28/2024 Medications acetaminophen (Tylenol) 325 MG tablet Take by mouth every 6 (six) hours if needed for mild pain 06/06/20 15 Active docusate sodium (Colace) 100 MG capsule TAKE 1 CAPSULE BY MOUTH TWICE A DAY 03/10/20 22 Active folic acid (Folvite) 1 MG tablet TAKE 1 TABLET BY MOUTH EVERY DAY 08/10/20 22 Active methotrexate 2.5 MG tablet TAKE 8 TABLETS ONCE WEEKLY ON Mondays09/23/20 22 Active montelukast (Singulair) 10 MG tablet TAKE 1 TABLET BY MOUTH EVERY EVENING 08/24/20 22 Active Spiriva Respimat 1.25 MCG/ACT inhaler INHALE 2 PUFFS BY MOUTH EVERY DAY 11/13/19 22 Active albuterol 108 (90 Base) MCG/ACT inhaler Inhale 2 puffs every 4 (four) hours if needed for wheezing or shortness of breath. 18 g 2 08/19/20 23 Active Advair HFA 115-21 MCG/ACT inhaler INHALE 2 PUFF EVERY 12 HOURS FOR 30 DAYS 06/29/20 23 Active carvedilol (Coreg) 6.25 MG tabletIndications :Primary hypertension Take 1 tablet (6.25 mg) by mouth with breakfast and with evening meal. 60 tablet 11 01/02/20 24 025 Active loratadine (Claritin) 10 MG tablet TAKE 1 TABLET BY MOUTH EVERY DAY IN THE MORNING 90 tablet 1 05/28/20 24 Active fluticasone (Flonase) 50 MCG/ACT nasal spray SPRAY 2 SPRAYS INTO EACH NOSTRIL IN THE MORNING SHAKE GENTLY/PRIME BEFORE 1ST USE&CLEAN TIP 48 mL 06/15/20 24 Active losartan (Cozaar) 100 MG tabletIndications :Primary hypertension TAKE 1 TABLET BY MOUTH EVERY DAY IN THE MORNING 90 tablet 1 06/26/20 24 Active gabapentin (Neurontin) 100 MG capsuleIndication s:Degeneration of lumbar intervertebral disc,Meralgia paresthetica of right side TAKE 1 CAPSULE BY MOUTH THREE TIMES A DAY 90 capsule 08/16/20 24 Active betamethasone valerate (Valisone) 0.1 % cream APPLY TOPICALLY TWICE A DAY 30 g 1 08/24/20 24 Active levothyroxine (Synthroid, Levoxyl) 50 MCG tabletIndications :Acquired hypothyroidism TAKE 1 TABLET BY MOUTH EVERY DAY IN THE MORNING 90 tablet 1 11/01/19 25 Active omeprazole (PriLOSEC) [address] capsuleIndication s:Gastroesophagea l reflux disease, unspecified whether esophagitis present TAKE 1 CAPSULE BY MOUTH TWICE A DAY 180 capsule 1 11/01/19 25 Active levothyroxine (Synthroid, Levoxyl) 50 MCG tabletIndications :Acquired hypothyroidism TAKE 1 TABLET BY MOUTH EVERY DAY IN THE MORNING 90 tablet 1 05/07/20 24 025 Discontinued omeprazole (PriLOSEC) [address] capsuleIndication s:Gastroesophagea l reflux disease, unspecified whether esophagitis present TAKE 1 CAPSULE BY MOUTH TWICE A DAY 180 capsule 05/07/20 24 025 Discontinued Active Problems Problem Noted Date Diagnosed Date Dental plaque 11/13/2024 Normal oral exam 11/13/2024 Cellulitis 09/04/2024 Assessment & Plan (09/04/2024 5:32 PM EST): Likely a bacterial infection on the left arm. - Prescribed cephalexin (Keflex) 500 MG capsule 09/04/24 - ER precautions discussed. - Seek medical attention for worsening symptoms. Fracture of vertebra due to osteoporosis with delayed healing 07/06/2024 Overview (07/11/2024): Xray L-spine on 06/28: L4 fracture/sp T12 vertebral augmentation-previous fx- Assessment & Plan (07/11/2024 4:01 PM EDT): At L4 level (she's sp vertebral augmentation of T12) Pain is better controlled, she will follow up with pain clinic probably for epidural injection. Discussed regarding red flags including worsening back pain, leg weakness, urinary retention, she will go to ED immediately. Will review last DEXA scan and will discuss with rheumatology the need for bisphosphonate infusion. Continue Calcium + Vitamin D. Advised to use Gabapentin 2-3 times QHS as tolerated (up to 300 mg, hold for sedation). Leg pain, diffuse, right 06/28/2024 Assessment & Plan (06/29/2024 3:46 PM EDT): RO cord compression, patient is progressively worse and more debilitating. It could be linked to her chronic back pain with multilevel degenerative changes and vertebroplasty at T12 in the past Given worsening HTN, likely related to pain, I will refer to ED, we called EMS and they transported the patient. I will rx a walker to facilitate ambulation once discharge, as it seem that OA spine is getting worse. Take tylenol as she's allergic t most opiates and doesn't tolerate tramadol. I will fu as scheduled at the end of the month Renal artery stenosis 06/13/2024 Superior mesenteric artery stenosis 06/13/2024 Celiac artery stenosis 06/13/2024 Open broken tooth due to trauma without complica tion 04/26/2024 Abdominal pain 04/16/2024 Assessment & Plan (04/25/2024 11:20 AM EDT): - concerned about mesenteric ischemia/vascular xxx - I will order MRI of the abdomen and f/u at next appointment - keep symptom diary especially relationship with meals - will continue to optimize BP control Assessment & Plan (04/16/2024 9:01 PM EDT): Pt w right hip/RLQ pain ,pain seems worse w right leg and over right hip palpation but also over abdomen , so unsure at this time if etiology is more MSK vs abdominal as ovarian,colonic,kidney stones ? Pt is s/p cholecystectomy ,hysterectomy and states also appendectomy VS are stable , only elevated BP .Denies any or GI symptoms,afebrile -CT Abdomen & Pelvis W Cont - 12/31/22 :Status post vertebroplasty of T12.Minimally prominent colonic wall without peripheral fat stranding. Possible mild enterocolitis. 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 Rest at home Follow up in 2 months Obesity, morbid 08/19/2023 08/19/2023 Assessment & Plan (03/13/2024 2:49 PM EDT): Discussed re weight reduction options including exercise, life style modifications, diet, referral to medical specialist. Discussed re lower calorie intake, increase dietary fiber Meralgia paresthetica of right side 04/26/2023 Assessment & Plan (04/26/2023 1:33 PM EDT): information given to patient, reassurance start gabapenin and reconsult PRN Calculus of lower urinary tract 11/16/2022 Assessment & Plan (11/16/2022 11:33 AM EST): Resolved. DC flomax Encouranged increase PO fluids BMI 35.0-35.9,adult 10/19/2022 Closed fracture of fifth metatarsal bone 023 Edema of lower extremity 10/19/2022 Assessment & Plan (12/12/2023 1:42 PM EST): Resolved, neg DVT studies. It was related to amlodipine. Amlodipine is dc Monitor BP as above Chest pain 10/19/2022 Greater trochanteric pain syndrome 10/19/2022 Assessment & Plan (04/25/2024 2:39 PM EDT): - pt with significant recurrent hip pain, increase Tylenol to 1000 mg BID x 2 weeks - continue treatment for RA and f/u with rheumatology - will refer to PT and re evaluate pain in 6-8w Pain in lower limb 10/19/2022 History of cholecystectomy 10/19/2022 Primary osteoarthritis of left knee 10/19/2022 Assessment & Plan (11/16/2022 11:34 AM EST): Continue ambulation with a cane. FU with rheumatology for knee steroid injection. Right flank pain 10/19/2022 Asthma 10/19/2022 Sleep apnea 10/19/2022 Assessment & Plan (08/22/2023 2:43 PM EST): Doing well Continue to use CPAP to decrease morbidity and mortality Assessment & Plan (04/26/2023 1:34 PM EDT): Continue to use CPAP everynight to decrease dmorbiity and mortality will check with DME supplier to see if a new sleep study is pending otherwise will call her back for further POC Assessment & Plan (02/15/2023 3:55 PM EDT): On CPAP> 10 y, current machine isn't working for the past 2w. Needs a new CPAP or current machine to be checked by [facility]. Patient needs to continue using CPAP every night to decrease morbidity and mortality. Tendinitis of right rotator cuff 10/19/2022 Venous insufficiency of leg 10/19/2022 Hematuria 10/19/2022 Prediabetes 09/17/2021 Primary osteoarthritis of both knees 02/16/2019 Assessment & Plan (06/29/2024 3:43 PM EDT): Rx for a walker Fu with rheumatology Calcaneal spur 06/23/2018 Osteopenia 06/23/2018 Heel pain 02/20/2018 Eczema 01/06/2018 Hypothyroidism 06/28/2017 Assessment & Plan (03/13/2024 2:52 PM EDT): - TSH is at goal. Continue Levothyroxine 50 MCG and check TSH in 8 months Chronic low back pain 06/28/2017 Rheumatoid arthritis, adult 06/28/2017 Assessment & Plan (04/26/2023 1:35 PM EDT): On MTX + folic acid Continue to follow up with rheuamtology (Dr. Rizvi) Degeneration of lumbar intervertebral disc 12/10 Assessment & Plan (04/26/2023 1:34 PM EDT): doing well, needs to go back to gabapentin TID use tylenol PRN ambulation with a cane to prevent falls Chronic obstructive pulmonary disease 12/11/2012 Assessment & Plan (12/12/2023 1:40 PM EST): Doing well on Spiriva, Advair and albuterol prn. PCV updated from pulmonary office, she will have Influenza and Covid booster today. FU with pulmonary. Assessment & Plan (08/22/2023 2:42 PM EST): 5th day of ZPAK patient doing well Rx medrol pack Albuterol updraft today, continue at home q6h Re consult prn Assessment & Plan (02/15/2023 1:02 PM EDT): Pt is doing well. Recommended to use advair and spiriva in the morning of the surgery. Use incentive spiromter in the post op and albuterol prn, FU per anesthesia can resume regular inhalers the day after surgery. Angle-closure glaucoma 09/29/2012 GERD (gastroesophageal reflux disease) 2 Eosinophil count raised 05/15/2012 Abnormal gait 04/12/2012 Neck pain 04/12/2012 Hypertension 04/12/2012 Assessment & Plan (04/25/2024 11:22 AM EDT): - uncontrolled - will optimize pain management, keep BP record and f/u with me in 6 weeks - continue Losartan 100 mg + Carvedilol 6.25 mg Assessment & Plan (04/16/2024 9:01 PM EDT): Home BP States to be < 140/90,states rarely notice BP to be higher ,reports to be compliant w BP meds -possible reactive to pain at this time? -Advised to bring home BP readings at next apt w PCP and call fo earlier apt is noted several elevated BP to see PCP before -apt w PCP 07/13/2024 Assessment & Plan (03/13/2024 3:28 PM EDT): - uncontrolled today, r/o white coat hypterension - pt to check BP at home and call back if higher than 140/90 more than 3 times - Continue Losartan + Carvedilol same dose - Counseled re low salt diet/increase moderate physical activity. - Check home BP BIW and prn CP/PAREDES/WALTERS - Non smoking patient. Assessment & Plan (12/12/2023 1:41 PM EST): Uncontrolled, goal is 140/85 max. Continue losartan 100mg. DC hydrochlorothiazide due to side effects (increased urinary frequency) Counseled re low salt diet/increase moderate physical activity. Check home BP BIW and prn CP/PAREDES/WALTERS. FU BP with RN in 2-3w and with me in 2mo Non smoking patient. Continue using CPAP every night. Assessment & Plan (08/22/2023 11:40 AM EST): Uncontrolled, most likely related to COPD Will treat COPD, continue lozaprin 100 mg Follow up in 2 months Continue using Z Pack Assessment & Plan (04/26/2023 1:36 PM EDT): repeated BP is 140/70, no need to change medications continue checking BP at home BIW Continue norvasc 10 mg + HCTZ 25 + losartan 100mg per day FU with renal Counseled re low salt diet/increase moderate physical activity. Check home BP BIW and prn CP/PAREDES/WALTERS Non smoking patient. Assessment & Plan (02/15/2023 1:03 PM EDT): BP is at goal. She will take amlodipine in the morning of the surgery with a sip of water. She takes losartan in the evening, can follow up in the post-op. Assessment & Plan (11/16/2022 11:33 AM EST): BP fairly controlled. Continue hydrochlorothiazide + Losartan 100 + amlodipine 10 Pt counseled to have both Covid boosters. Resolved Problems Problem Noted Date Diagnosed Date Resolved Date Preoperative examination 02/15/202312/2022 Assessment & Plan (02/15/2023 1:26 PM EDT): 77 years old pt with multiple medical conditions here for preop evaluation. Most of her medical conditions are controlled so that she can safely undergo planned procedure. She is a LOW risk patient undergoing an intermediate risk procedure. Her RCRI score is 0(zero), which is equivalent to 3.9% risk of CV complications within the 30d POP, that is an average risk. Will order labs and check creatinine. -Hold NSAIDS 3 days prior to procedure, use tylenol only PRN pain. _Take amlodipine and omeprazole in the morning of the procedure only. Can resume all other medications once she tolerates PO. -Pt will call back PRN Fever, acute URI or UTI symptoms, otherwise she is in optimal condition for planned procudure. Acquired autoimmune hypothyroidism 02/15/2023 08/19/2023 Assessment & Plan (02/15/2023 1:01 PM EDT): it is usually controlled on levothyroxine check tsh and will adjust medication after surgery. Screening mammogram for breast cancer 11/16/2022 08/19/2023 Assessment & Plan (11/16/2022 11:32 AM EST): Pt agreed to have mammogram this year. She is aware that she does not need additional routine mammograms at her age. Atelectasis 10/19/2022 08/19/2023 Biliary calculus 10/19/2022 08/19/2023 Vascular insufficiency 10/19/202208/19 Ulcer of nose 10/19/2022 08/19/2023 Acute cystitis with hematuria 10/19/2022 08/19/2023 Precordial pain 06/28/2017 08/19/2023 Encounters Date Type Department Care Team Description 11/13/2024 1:00 PM EST Office Visit [facility] [address] [place] [phone] [place] Dental calculus (Primary Dx); Dental plaque; Normal oral exam 11/13/2024 Telephone [facility] [address] [place] [address] [phone] Jeni Garcia MD DCF Form (I called to get more information, about a Family Resource Parent Medical Form, from [employer]. The patient needs to state whether she will be an adoptive parent, or will be living in the home of someone who will be an adoptive parent. I reached her voicemail, and left a message asking her to call the forms department at ext [phone].) 11/01/2024 Orders Only [facility] External Provider, [facility] [place] 11/01/2024 Refill [facility] [address] [place] [address] [phone] Jeni Garcia MD Acquired hypothyroidism; Gastroesophageal reflux disease, unspecified whether esophagitis present 09/04/2024 5:40 PM EST Office Visit [facility] [address] [place] [phone] Nancy Partida MD Cellulitis, unspecified cellulitis site (Primary Dx) 09/04/2024 Telephone [facility] [address] [place], [place] [phone] Jeni Garcia MD Nurse Triage from Last 3 Months Immunizations Name Administration Dates Next Due Hep B, adult 12/13/1994,03/04/1994,02/02/1994 Influenza injectable quadriv alent preservative free 12/12/2023,09/23/2021,08/23/2019,07/14 Influenza, High Dose Seasona l, Preservative Free 07/28/2017 Influenza, IIV3, injectable 08/29/2020,1 10/23/2018,07/28/2017,07/14,07/13/2010 Influenza, Split (incl. kassandra fied surface antigen) 10/26/2013 Influenza, trivalent, adjuvanted 07/22/2022,08/17 MMR 01/11/1994 Pneumococcal Conjugate PCV 13 09/08/2015 Pneumococcal Conjugate PCV 20 10/31/2023 Pneumococcal Polysaccharide PPSV23 10/05/2016, TD (adult), 2 Lf tetanus tox oid, preservative free, adsorbed 12/12/2023,02/23/1999,04/02/1992,04/13 Td (adult), unspecified 02/23/1999,04/02/1992, Tdap 06/01/2011 Zoster, live 01/22/2015 Social History Tobacco Use Types Packs/Day Years Used Date Smoking Tobacco: Never Passive Smoke Exposure: Never Smokeless Tobacco: Never Tobacco Cessation:Counseling Given: Not Answered Alcohol Use Standard Drinks/Week Comments Never 0 (1 standard drink = 0.6 oz pur e alcohol) Depression Answer Date Recorded Patient Health Questionnaire-9 Score 0 11/16/2022 Housing Stability Answer Date Recorded What is your housing situation today? I have dimitrydavid adams 12/12/[address] you [...] Orientation Straight 08/16/2022 10 :14 AM EDT Last Filed Vital Signs Vital Sign Reading Time Taken Comments Blood Pressure 134/76 11/13/2024 1:08 PM EST Pulse 72 09/04/2024 5:16 PM EST Temperature 36.7 ??C (98.1 ??F) 09/04/2024 5:16 PM ES T Respiratory Rate 16 09/04/2024 5:16 PM EST Oxygen Saturation 98% 07/06/2024 12:24 PM EDT Inhaled Oxygen Concentration - - Weight 81.3 kg (179 lb 3.2 oz) 09/04/2024 5:16 P M EST Height 149.9 cm (4' 11 ) 09/04/2024 5:16 PM EST Body Mass Index 36.19 09/04/2024 5:16 PM EST Plan of Treatment Upcoming Encounters Date Type Department Care Team (Late st Contact Info) Description 05/28/2025 10:00 AM EDT Office Visit [facility] [address] [place] [address] [facility] Health Maintenance Due Date Last Done Comments Alcohol/Substance Use Screening 1957 Zoster Vaccines (2 of 3) 03/19/2015 01/22/2015 RSV Patients and Patients Aged 60 years or older (1 - 1-dose 75+ series) 2018 COVID-19 Vaccine ( season) 2024 09/23/2021, 12/30/2020, 12/02/2020 Influenza Vaccine (#1) 2024 , 07/22/2022, 09/23/2021, Additional history exists Diabetes: Hemoglobin A1C 08/19/2024 023, 05/31/2022, 03/19/2022, Additional history exists Depression Screening 12/12/2024 12/12/2023, 11/16/19 SDOH Screening 12/12/2024 12/12/2023 Mammogram 01/03/2025 01/04/2024, 12/15, 12/29/2022, Additional history exists Dental Oral Exam 05/14/2025 11/13/2024, 05/2024, 11/11/2022 Dental Prophylaxis 05/14/2025 11/13/2024, 0 05/24/2024, 11/11/2022 Dental X-Ray: Bitewings 05/25/2025 05/24/2024, 11/11 Tobacco Screening 11/13/2025 11/13/2024 Dental X-Ray: Full Mouth 05/25/2027 05/24/2024 Lipid Panel 02/16/2028 02/15/2023, 06/0 12/2021, 01/28/2021 DTaP/Tdap/Td Vaccines (3 - Td or Tdap) 12/12/2033 12/12/2023, 06/01/2011, 02/23/1999, Additional history exists Hepatitis B Vaccines Completed 12/13/1994, 03/04/1994, 02/02/1994 [...] patient's age to complete this topic Meningococcal Vaccine Aged Out No hafsa vivien eligible based on patient's age to complete this topic RSV under 20 months Aged Out No longe r eligible based on patient's age to complete this topic Rotavirus Vaccines Aged Out No longer eligible based on patient's age to complete this topic Procedures Procedure Name Priority Date/Time Associated Diagnosis Comments PERIODIC ORAL EVALUATION - ESTABLISHED PATIENT Routine 11/13/2024 1:00 PM EST ORAL HYGIENE INSTRUCTIONS Routine 11/13/2024 1:00 PM EST Dental calculus Dental plaque ADJUNCTIVE GENERAL SERVICES - PROFESSIONAL VISITS - CASE PRESENTATION, SUBSEQUENT TO DETAILED AND EXTENSIVE TREATMENT PLANNING Routine 11/13/2024 1:00 PM EST PROPHYLAXIS - ADULT Routine 11/13/2024 1 :00 PM EST Dental calculus Dental plaque FL GUIDANCE IN TREATMENT ROOM Routine 11/01/2024 12:48 PM EST DIAGNOSTIC - DIAGNOSTIC IMAGING - INTRAORAL - COMPREHENSIVE SERIES OF RADIOGRAPHIC IMAGES Routine 05/24/2024 3:00 PM EDT BI MAMMOGRAM SCREENING TOMOSYNTHESIS BILATERAL Routine 01/04/2024 12:30 PM EDT POCT GLYCATED HEMOGLOBIN, TOTAL Routine 08/19/2023 1:08 PM EDT Prediabetes LIPID PANEL WITH REFLEX TO DIRECT LDL Routine 02/15/2023 11:09 AM EDT Primary hypertension from Last 3 Months or Most Recently Relevant to Health Maintenance Results * FL Guidance in Treatment Room (11/01/2024 12:48 PM EST) Anatomical Region Laterality Modality X-Ray Angiograph y 11/01/2024 12:4 8 PM EST Narrative 11/02/2024 1:50 PM EST ? [facility] [place] ?[address] ?[place] [address] ? Fluoroscopy Report ? Signed ? Patient: Armendariz,Joan R ?MR#: [id number] ?? [id number] ? : 1945 ?Acct:[id number] ? Age/Sex: 79 / F ?ADM Date: 01/16/25 ? Loc: CF ? Attending Dr: Danis Diamond MD ? Ordering Physician: Nohemy Matthew APRN, DIRECTOR RECREATION ?? Date of Service: 11/01/24 ?? Procedure(s): FL guidance in treatment room ?? Accession Number(s): [id number] ? cc: Jeni Garcia MD; Nohemy Matthew APRN, DIRECTOR RECREATION ? EXAMINATION: ??FL GUIDANCE ONLY ? HISTORY: [...] ??Bony Ricks MD ??11/02/2024 01:47 PM EST ? Dictated By: ?Bony Ricks MD ? Signed By: ?<Electronically signed by Bony Ricks MD in OV> ?11/02/24 1347 ? DD/ 1248 ? TD/TT: 11/01/24 1259 ? [employer] Operator: ? Procedure Note Willie Maurer - 11/02/2024 [place] [address] Fluoroscopy Report Signed Patient: Joan Armendariz RMR#: [id number] : 1945Acct:[id number] Age/Sex: 79 / FADM Date: 11/01/24 Loc: CF Attending Dr: Danis Diamond MD Ordering Physician: Nohemy Matthew APRN, DIRECTOR RECREATION Date of Service: 11/01/24 Procedure(s): FL guidance in treatment room Accession Number(s): [id number] cc: Jeni Garcia MD; Nohemy Matthew APRN, DIRECTOR RECREATION EXAMINATION: FL GUIDANCE ONLY HISTORY: M54.16 - [...] Bony Ricks MD 11/02/2024 01:47 PM EST RP Dictated By: Bony Ricks MD Signed By: <Electronically signed by Bony Ricks MD in OV> 11/02/24 1347 DD/ 1248 TD/TT: 11/01/24 1259 [employer] Operator: [facility] External Provider IMG IR PROCEDURES Edited Result - Final * BI Mammogram Screening Tomosynthesis Bilateral (01/04/2024 12:30 PM EDT) Anatomical Region Laterality Modality Breast Bilateral Mammography 01/04/2024 12:3 0 PM EDT Narrative 01/25/2024 12:29 AM EDT ? [facility] ? [address] ?[place] [address] ? Mammography Report ? Signed ? Patient: Joan Armendariz R ?MR#: [id number] ?? [id number] ? : 1945 ?Acct:[id number] ? Age/Sex: 78 / F ?ADM Date: 01/03/24 ? Loc: HO.MAMMO ? Attending Dr: Jeni Garcia MD ? Ordering Physician: Jeni Garcia MD ?Results: 1Ne ?? gative ? Date of Service: 01/04/24 ?Follow Up: 1 Year From Orig ?? inal Mammogram ? Procedure(s): MM tomosynthesis screening BI ?? Accession Number(s): [id number] ? cc: Jeni Garcia MD ? EXAMINATION: ?? MM SCREENING DIGITAL BREAST TOMOSYNTHESIS, BILATERAL ? CLINICAL INFORMATION: ? Screening. Asymptomatic. ? COMPARISON: ?? Mammography: This study is compared with prior exams dating back to ?? 2018. ? TECHNIQUE: ?? Digital breast tomosynthesis is performed in both the craniocaudal and ?? mediolateral oblique views along with computer-aided detection (CAD). ?? Synthesized 2D images are generated from the tomosynthesis. ? FINDINGS: ?? There are scattered areas of fibroglandular density (ACR BI-RADS breast ?? composition Category b). ? There are no significant masses, abnormal calcifications, or other ?? abnormalities. ? MM/MM tomosynthesis screening BI ?? IMPRESSION: ?? No mammographic evidence of malignancy. ? ASSESSMENT: ? BI-RADS BI-RADS 1 - Negative ? RECOMMENDATION: ?? Routine annual mammography screening. ? 1 year F/U ? This examination should not preclude the clinical evaluation of a ?? suspicious palpable abnormality. ? This patient's information was entered into a reminder system with a ?? target due date for their next mammogram. ? Dictated By: ?Marimar Patel MD ? Signed By: ?<Electronically signed by Marimar Patel MD in OV> ? 01/25/24 0025 ? DD/ 1230 ? TD/TT: ? [employer] Operator: ? Procedure Note Willie Maurer - 01/25/2024 [facility] [address] [place], [place] [address] Mammography Report Signed Patient: Joan Armendariz R#: [id number] 594 : 3Acct:[id number] Age/Sex: 78 / FADM Date: 01/04/24 Loc: MAMMO Attending Dr: Jeni Garcia MD Ordering Physician: Jeni Garcia MDResults: 1Ne gative Date of Service: 01/04/24Follow Up: 1 Year From Orig inal Mammogram Procedure(s): MM tomosynthesis screening BI Accession Number(s): [id number] cc: Jeni Garcia MD EXAMINATION: MM SCREENING DIGITAL BREAST TOMOSYNTHESIS, BILATERAL CLINICAL INFORMATION: Screening. Asymptomatic. COMPARISON: Mammography: This study is compared with prior exams dating back to 2018. TECHNIQUE: Digital breast tomosynthesis is performed in both the craniocaudal and mediolateral oblique views along with computer-aided detection (CAD). Synthesized 2D images are generated from the tomosynthesis. FINDINGS: There are scattered areas of fibroglandular density (ACR BI-RADS breast composition Category b). There are no significant masses, abnormal calcifications, or other abnormalities. MM/MM tomosynthesis screening BI IMPRESSION: No mammographic evidence of malignancy. ASSESSMENT: BI-RADS BI-RADS 1 - Negative RECOMMENDATION: Routine annual mammography screening. 1 year F/U This examination should not preclude the clinical evaluation of a suspicious palpable abnormality. This patient's information was entered into a reminder system with a target due date for their next mammogram. Dictated By: Marimar Patel MD Signed By: <Electronically signed by Marimar Patel MD in OV> 01/25/24 0025 DD/ 1230 TD/TT: [employer] Operator: us Jeni Garcia MD IMG BI PROCEDURES Final Result * POCT A1C (08/19/2023 1:08 PM EDT) Hemoglobin A1C 6.0 4.0 - 6.0 % QC Media Lot # [id number] Lot# Expiration Date Blood 08/19/2023 1:08 PM EDT Jayshree Andrade DO POINT OF CARE TEST ENTER/FADUMO T ORDERABLES Final Result * Lipid Panel with Reflex to Direct LDL (02/15/2023 11:09 AM EDT) Cholesterol, Total 141 <200 mg/dL [email or web address] [place] [facility] HDL Cholesterol 54 > OR = 50 mg/dL [email or web address] [place] [facility] Triglycerides 99 <150 mg/dL [email or web address] [place] [facility] LDL Cholesterol 69 mg/dL (calc) [email or web address] [place] [facility] Comment: Reference range: <100 Desirable range <100 mg/dL for primary prevention; ?? <70 mg/dL for patients with CHD or diabetic patients with > or = 2 CHD risk factors. LDL-C is now calculated using the Bebeto-Casandra calculation, which is a validated novel method providing better accuracy than the Friedewald equation in the estimation of LDL-C. Bebeto SS et al. [place]. 2013;310(19): 3372-1274 (http://education.[employer]/faq/IJV986) Chol/HDLC Ratio 2.6 <5.0 (calc) [email or web address] [place] [facility] Non-HDL Cholesterol 87 <130 mg/dL (calc) [email or web address] [place] [facility] Comment: For patients with diabetes plus 1 major ASCVD risk factor, treating to a non-HDL-C goal of <100 mg/dL (LDL-C of <70 mg/dL) is considered a therapeutic option. 02/15/2023 11:0 9 AM EDT 02/15/2023 11:10 AM EDT Narrative [facility] - 02/16/2023 2:24 AM EDT FASTING:NO FASTING: NO us Jeni Garcia MD LAB BLOOD ORDERABLES Fin al Result [facility] [address], [place] [address] [email or web address] [place] [facility] [address] [place] [address] from Last 3 Months or Most Recently Relevant to Health Maintenance Insurance [facility] DUAL COMPLETE [facility] STANDARD DENTAL - [facility] Care Teams Civil Engineering Assistant Relationship Specialty Start Date End Date Jeni Garcia MD [address] [place] [id number] PCP - General Family Medicine 12/16/15
--- OUTSIDE RECORDS SUMMARY | 2024-11-28 12:16 | XMS_ITS | Encounter Summary ---
Author Organization [employer] Address [address] [facility] [address] [place] [address] Care Team Providers Care Senior Director Finance Name Role Phone Jeni Garcia MD Primary Care Provider + Reason for Visit * Reason Comments Med Refill Encounter Details Date Type Department Care Team (Late st Contact Info) Description 11/01/2024 Refill [facility] [address] [place], [place] [phone] Jeni Garcia MD [address] [place], [place] [phone] Acquired hypothyroidism; Gastroesophageal reflux disease, unspecified whether esophagitis present Social History Tobacco Use Types Packs/Day Years [...] Description 05/28/2025 10:00 AM EDT Office Visit [facility] [address] [place] [address] Blessing Bah documented as of this encounter Visit Diagnoses Diagnosis Acquired hypothyroidism Unspecified hypothyroidism Gastroesophageal reflux disease, unspecified whether esophagitis present documented in this encounter Additional Health Concerns Assessment Noted Time PHQ-9 Depression Total Score: 0 11/16/19 23 10:53 AM EST documented as of this encounter Care Teams Senior Director Finance Relationship Specialty Start Date End Date Jeni Garcia MD [address] [place] [address] PCP - General Family Medicine 12/16/15 documented as of this encounter
--- OUTSIDE RECORDS SUMMARY | 2024-11-28 12:16 | XMS_ITS | Encounter Summary ---
Author Organization [employer] Address [address] [facility] [address] [place] [address] Care Team Providers Care Drilling Field Specialist Name Role Phone Jeni Garcia MD Primary Care Provider + Reason for Visit * Reason Comments Routine Cleaning Dental Exam Encounter Details Date Type Department Care Team (Late st Contact Info) Description 11/13/2024 1:00 PM EST Office Visit [facility] [address] [place], [place] [phone] Blessing Bah Dental calculus (Primary Dx); Dental plaque; Normal oral exam Social History Tobacco Use Types Packs/Day Years [...] t he electric, gas, oil or water [employer] threatened to shut off services in your home? No 12/12/2023 Depression Answer Date Recorded Patient Health Questionnaire-2 Score 0 12/12/2023 Comments No Sex and Gender Information Value Date Recorded Sex Assigned at Female 08/16/2022 10:14 AM EDT Legal Sex Female 10:14 AM EDT Gender Identity Female 08/16/2022 10:14 AM EDT Sexual Orientation Straight 08/16/2022 10 :14 AM EDT documented as of this encounter Last Filed Vital Signs Vital Sign Reading Time Taken Comments Blood Pressure 134/76 11/13/2024 1:08 PM EST Pulse - - Temperature - - Respiratory Rate - - Oxygen Saturation - - Inhaled Oxygen Concentration - - Weight - - Height - - Body Mass Index - - documented in this encounter Progress Notes * Blessing Bah - 11/13/2024 1:00 PM EST Patient ID: Joan Armendariz is a 79 y.o. female. Time Out: Timeout Date: 11/13/24, Timeout Time: 1306 (prophy and exam adult dental) Location: [facility] Tooth: Maxilla and Mandible Procedure: Exam and Prophylaxis Verified the above with patient, licensed occupational therapy assistant, and provider. Confirmed via patient's chart, intraorally and by radiographs. Community Reinvestment Act Officer: not applicable Medical Hx: Vitals: Blood pressure 134/76. Medications, Med Hx reviewed with patient and updated in chart. Treatment Provided Dental procedures in this visit D1110 - PROPHYLAXIS - ADULT (Completed) Service provider: Blessing Bah [facility] provider: Adam Romero DDS [id number] - ADJUNCTIVE GENERAL SERVICES - PROFESSIONAL VISITS - CASE PRESENTATION, SUBSEQUENT TO DETAILED AND EXTENSIVE TREATMENT PLANNING (Completed) Service provider: Blessing Bah Billing provider: Adam Romero DDS D1330 - ORAL HYGIENE INSTRUCTIONS (Completed) Service provider: Blessing Dailey provider: Adam Romero DDS Instruments Used: Ultrasonic Scalers, Hand Scalers, and Prophy angle Fluoride: N/A Oral Cancer Screening: No lesions Head/Neck Exam: No Lesions Calculus: Moderate and Localized Plaque: Light and Generalized Stain: Light and Generalized Bleeding: Light and Generalized Gingiva: Recession- generalized [place]: Fair Perio Chart: Completed generalized 1-3 mm with generalized recession Oral hygiene instructions provided to patient including brushing technique and flossing. Exam with Dr. Romero - no decay noted, no restorative needs Recommendations: Custer two times daily, modified bolton technique, Floss daily, Electric toothbrush, Soft bristle toothbrush, Custer Tongue, Anti-sensitivity toothpaste Recall Frequency: 6 mo NV: 6mrc, exam, update xrays Hygienist: Blessing Bah RDH * Adam Romero DDS - 11/13/2024 1:00 PM EST Dental procedures in this visit D1110 - PROPHYLAXIS - ADULT (Completed) Service provider: Blessing Bah Billdwight provider: Adam Romero DDS [id number] - ADJUNCTIVE GENERAL SERVICES - PROFESSIONAL VISITS - CASE PRESENTATION, SUBSEQUENT TO DETAILED AND EXTENSIVE TREATMENT PLANNING (Completed) Service provider: Blessing Bah Billdwight provider: Adam Romero DDS D1330 - ORAL HYGIENE INSTRUCTIONS (Completed) Service provider: Blessing Bah Billing provider: Adam Romero DDS D0120 - PERIODIC ORAL EVALUATION - ESTABLISHED PATIENT (Completed) Service provider: Adam Romero DDS Billing provider: Adam Romero DDS Patient ID: Joan Armendariz is a 79 y.o. female. Time Out: Timeout Date: 11/13/24, Timeout Time: 1306 (prophy and exam adult dental) Location: [facility] Tooth: Maxilla and Mandible Procedure: Exam and Prophylaxis Verified the above with patient, licensed occupational therapy assistant, and provider. Confirmed via patient's chart, intraorally and by radiographs. Community Reinvestment Act Officer: not applicable Chief Complaint Patient presents with Routine Cleaning Dental Exam Medical Hx: Vitals: Blood pressure 134/76. Past Medical History: Diagnosis Date Arthritis Asthma Glaucoma Hypertension Medications: Outpatient Encounter Medications as of 11/13/2024 Medication Sig Dispense Refill acetaminophen (Tylenol) 325 MG tablet Take by mouth every 6 (six) hours if needed for mild pain Advair HFA 115-21 MCG/ACT inhaler INHALE 2 PUFF EVERY 12 HOURS FOR 30 DAYS albuterol 108 (90 Base) MCG/ACT inhaler Inhale 2 puffs every 4 (four) hours if needed for wheezing or shortness of breath. 18 g 2 carvedilol (Coreg) 6.25 MG tablet Take 1 tablet (6.25 mg) by mouth with breakfast and with evening meal. 60 tablet 11 docusate sodium (Colace) 100 MG capsule TAKE 1 CAPSULE BY MOUTH TWICE A DAY fluticasone (Flonase) 50 MCG/ACT nasal spray SPRAY 2 SPRAYS INTO EACH NOSTRIL IN THE MORNING SHAKE GENTLY/PRIME BEFORE 1ST USE&CLEAN TIP 48 mL 0 folic acid (Folvite) 1 MG tablet TAKE 1 TABLET BY MOUTH EVERY DAY gabapentin (Neurontin) 100 MG capsule TAKE 1 CAPSULE BY MOUTH THREE TIMES A DAY 90 capsule 0 levothyroxine (Synthroid, Levoxyl) 50 MCG tablet TAKE 1 TABLET BY MOUTH EVERY DAY IN THE MORNING 90tablet 1 loratadine (Claritin) 10 MG tablet TAKE 1 TABLET BY MOUTH EVERY DAY IN THE MORNING 90 tablet 1 losartan (Cozaar) 100 MG tablet TAKE 1 TABLET BY MOUTH EVERY DAY IN THE MORNING 90 tablet 1 methotrexate 2.5 MG tablet TAKE 8 TABLETS ONCE WEEKLY ON MONDAYS montelukast (Singulair) 10 MG tablet TAKE 1 TABLET BY MOUTH EVERY EVENING omeprazole (PriLOSEC) [address] capsule TAKE 1 CAPSULE BY MOUTH TWICE A DAY 180 capsule 1 Spiriva Respimat 1.25 MCG/ACT inhaler INHALE 2 PUFFS BY MOUTH EVERY DAY betamethasone valerate (Valisone) 0.1 % cream APPLY TOPICALLY TWICE A DAY 30 g 1 No facility-administered encounter medications on file as of 11/13/2024. Objective HPI Asymptomatic Head and Neck Exam: Lymph Nodes, Lips, Palate, Buccal Mucosa, Floor of Mouth, Tongue, Tonsils, Alveolar Ridges, Oropharynx, Salivary Ducts, and Vestibules normal appearance Details: Skin multiple moles, without changes OCS: negative Dental Exam As charted Multiple restore teeth Fixed prosthodontics including implant in good condition Reference tooth chart for additional findings. Oral Cancer Risk: Moderate Risk family cancer HX Oral Hygiene Instructions: Custer two times daily, modified bolton technique, Floss daily, Electric toothbrush, Soft bristle toothbrush, Custer Tongue Caries Risk Assessment: Medium- one risk factor Assessment/Plan RASHMI Prophy Next visit X Rays Recall Patient tolerated procedure well, all questions answered and expressed understanding. Dismissed in good condition. NV: 6 mos recall Waste Machine Offbearer: Blessing Bah RDH Dentist: Adam Romero DDS documented in this encounter Plan of Treatment Upcoming Encounters Date Type Department Care Team (Late st Contact Info) Description 05/28/2025 10:00 AM EDT Office Visit [facility] [address] [place] [address] Blessing Bah Scheduled Orders Name Type Priority Associated Diagnoses Orde r Schedule PROPHYLAXIS - ADULT Dental Routine 1 Occ urrences starting 11/13/2024 PERIODIC ORAL EVALUATION - ESTABLISHED PATIENT Dental Routine 1 Occurren reina starting 11/13/2024 BITEWINGS - 4 RADIOGRAPHIC IMAGES Dental Routine 1 Occurrence s starting 11/13/2024 INTRAORAL - PERIAPICAL FIRST RADIOGRAPHIC IMAGE Dental Routine 1 Occur rences starting 11/13/2024 INTRAORAL - PERIAPICAL EACH ADDITIONAL RADIOGRAPHIC IMAGE Dental Routine 1 Occurrences starting 11/13/2024 INTRAORAL - PERIAPICAL EACH ADDITIONAL RADIOGRAPHIC IMAGE Dental Routine 1 Occurrences starting 11/13/2024 documented as of this encounter Procedures Procedure Name Priority Date/Time Associated Diagnosis Comments PROPHYLAXIS - ADULT Routine 11/13/2024 1 :00 PM EST Dental calculus Dental plaque PERIODIC ORAL EVALUATION - ESTABLISHED PATIENT Routine 11/13/2024 1:00 PM EST ORAL HYGIENE INSTRUCTIONS Routine 11/13/2024 1:00 PM EST Dental calculus Dental plaque ADJUNCTIVE GENERAL SERVICES - PROFESSIONAL VISITS - CASE PRESENTATION, SUBSEQUENT TO DETAILED AND EXTENSIVE TREATMENT PLANNING Routine 11/13/2024 1:00 PM EST documented in this encounter Visit Diagnoses Diagnosis Dental calculus- Primary Accretions on teeth Dental plaque Accretions on teeth Normal oral exam documented in this encounter Additional Health Concerns Assessment Noted Time PHQ-9 Depression Total Score: 0 11/16/19 23 10:53 AM EST documented as of this encounter Care Teams Drilling Field Specialist Relationship Specialty Start Date End Date Jeni Garcia MD [address] [place] [address] PCP - General Family Medicine 12/16/15 documented as of this encounter
--- OUTSIDE RECORDS SUMMARY | 2024-11-28 12:16 | XMS_ITS | Clinical Summary ---
Author Organization [facility] Address [address] [facility] [address] [place] [address] Phone Care Team Providers Care Supervisor Inspection Name Role Phone Jeni Garcia MD Primary Care Provider + [phone] Allergies Active Allergy Reactions Criticality Noted Date Comments Codeine 09/03/2021 Hydrocodone Itching 10/09/2014 Morphine 09/03/2021 Oxycodone Hives 09/04/2013 Oxycodone-Acetaminophen 09/03/2021 Medications folic acid (FOLVITE) 1 MG tabletIndications :Essential (primary) hypertension Take 1 tablet by mouth daily 1 Active levothyroxine (SYNTHROID, LEVOTHROID) 25 MCG tabletIndications :Essential (primary) hypertension Take 1 tablet by mouth daily 1 Active methotrexate 2.5 MG tabletIndications :Essential (primary) hypertension Take 1 tablet by mouth daily 1 Active omeprazole (PriLOSEC) [address] capsuleIndication s:Essential (primary) hypertension Take 1 capsule by mouth 1 (one) time each day 1 Active losartan (COZAAR) 100 MG tabletIndications :Essential (primary) hypertension Take 100 mg by mouth 1 (one) time each day Active albuterol HFA (PROVENTIL HFA;VENTOLIN HFA) 108 (90 Base) MCG/ACT inhalerIndication s:Essential (primary) hypertension Inhale 2 puffs every 6 (six) hours if needed for wheezing Active acetaminophen (TYLENOL) 325 MG tabletIndications :Essential (primary) hypertension Take by mouth every 6 (six) hours if needed for mild pain Active montelukast (SINGULAIR) 10 MG tabletIndications :Essential (primary) hypertension Take 10 mg by mouth every night Active meclizine (ANTIVERT) 25 MG tablet [place] 1 TABLETA POR LA BOCA STEVE VECES AL EDITA CUANDO SEA NECESARIO PARA MAREO 1 Active gabapentin (NEURONTIN) 300 MG capsule Take 1 capsule (300 mg total) by mouth 1 (one) time each day with dinner 30 capsule 11 2 Active Advair HFA 115-21 MCG/ACT inhaler INHALE 2 PUFF EVERY 12 HOURS FOR 30 DAYS 3 Active Cholecalciferol (Vitamin D) 125 MCG (5000 UT) capsule Take 5,000 Units by mouth every Tuesday and 30 capsule 4 01/03/20 25 Active Active Problems Problem Noted Date Diagnosed Date Obese class I 04/12/2023 Biliary calculus 04/12/2023 Hypertension 08/06/2021 Resolved Problems Problem Noted Date Diagnosed Date Resolved Date Chronic obstructive pulmonary disease 08/06/2021 02/22/2022 Gastroesophageal reflux disease 08/06/2021 02/22/2022 Glaucoma 08/06/2021 02/22/2022 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 [address] [facility] [address] [place] [address] Luke Quinn MD Hypertension (Primary Dx) from Last 3 Months Immunizations Name Administration Dates Next Due Moderna SARS-COV-2 12/30/2020,12/02/2020 Social History Tobacco Use Types Packs/Day Years Used Date Smoking Tobacco: Never Smokeless Tobacco: Never Tobacco Cessation:Counseling Given: No Alcohol Use Standard Drinks/Week Comments Never 0 (1 standard drink = 0.6 oz pur e alcohol) Comments Unknown Sex and Gender Information Value Date Recorded Sex Assigned at Not on file Legal Sex Female 3:03 PM EDT Gender Identity Not on file Sexual Orientation Not on file Last Filed Vital Signs Vital Sign Reading Time Taken Comments Blood Pressure 138/70 10/02/2024 1:33 PM EST Pulse 78 10/02/2024 1:33 PM EST Temperature - - Respiratory Rate - - Oxygen Saturation 98% 10/02/2024 1:33 PM EST Inhaled Oxygen Concentration - - Weight 82.2 kg (181 lb 3.2 oz) 10/02/2024 1:33 P M EST Height 149.9 cm (4' 11 ) 11/26/2021 2:42 PM EST Body Mass Index 36.6 11/26/2021 2:42 PM EST Plan of Treatment Upcoming Encounters Date Type Department Care Team (Late st Contact Info) Description 10/01/2025 1:45 PM EST Office Visit [facility] [address] [address] Luke Quinn MD [address] [address] Health Maintenance Due Date Last Done Comments Influenza Vaccine (#1) 2024 4, 07/22/2022, 09/23/2021, Additional history exists Pneumococcal Vaccine: 65+ Years Completed 10/31/2023 Hepatitis B Vaccine Aged Out No longe r eligible based on patient's age to complete this topic Procedures Procedure Name Priority Date/Time Associated Diagnosis Comments URIC ACID Routine 09/25/2024 10:16 AM EST Hypertension FERRITIN Routine 09/25/2024 10:16 AM EST Hypertension IRON PANEL (FE, TIBC, TSAT) Routine 09/25/2024 10:16 AM EST Hypertension HEMOGLOBIN A1C Routine 09/25/2024 10:16 AM EST Hypertension MAGNESIUM Routine 09/25/2024 10:16 AM EST Hypertension URINE ALBUMIN / CREATININE RATIO Routine 09/25/2024 10:16 AM EST Hypertension PROTEIN / CREATININE RATIO, URINE Routine 09/25/2024 10:16 AM EST Hypertension URINALYSIS Routine 09/25/2024 10:16 AM EST Hypertension VITAMIN D 25 HYDROXY Routine 09/25/2024 10:16 AM EST Hypertension PTH, INTACT Routine 09/25/2024 10:16 AM EST Hypertension RENAL FUNCTION PANEL Routine 09/25/2024 10:16 AM EST Hypertension CBC AND DIFFERENTIAL Routine 09/25/2024 10:16 AM EST Hypertension CYSTATIN C WITH EGFR Routine 09/25/2024 10:16 AM EST Hypertension MICROSCOPIC EXAMINATION - DO NOT USE Routine 09/25/2024 10:16 AM EST from Last 3 Months Results * (ABNORMAL) Cystatin C w/GFR (09/25/2024 10:16 AM EST) Cystatin C 1.12 0.87 - 1.12 mg/L [facility] eGFR by Cystatin C 57(L) >59 mL/min/1.7 3 [facility] 09/25/2024 10:1 6 AM EST 09/25/2024 us Luke Quinn MD LAB BLOOD ORDERABLES Final Result [facility] [place] [address] [place] [address] * Microscopic Examination (09/25/2024 10:16 AM EST) WBC, Urine None seen 0 - 5 /hpf [facility] RBC, Urine None seen 0 - 2 /hpf [facility] Squamous Epithelial, Urine 0-10 0 - 10 /hpf [facility] Casts None seen None seen /lpf [facility] Bacteria, Urine None seen None seen/Few [facility] 09/25/2024 10:1 6 AM EST 09/25/2024 Luke Quinn MD LAB MICROBIOLOGY - GE NERAL ORDERABLES Final Result Performing Organization Address [facility] de Phone Number [facility] [address] [place] [address] * (ABNORMAL) Iron Panel (Fe, TIBC, TSAT) (09/25/2024 10:16 AM EST) [facility] TIBC 417 250 - 450 ug/dL [facility] UIBC 371(H) 118 - 369 ug/dL [facility] Iron 46 27 - 139 ug/dL [facility] Iron Saturation (TSat) 11(L) 15 - 55 % [facility] Blood (Blood, Venous) 09/25/2024 10:16 AM EST 09/25/2024 us Luke Quinn MD LAB BLOOD ORDERABLES Final Result Performing Organization Address City/[facility] Co de Phone Number [facility] [address] [place] [address] * Protein, Total, Random Urine w/Creatinine (Protein/Creat Ratio) (09/25/2024 10:16 AM EST) Creatinine, Ur 86.4 Not Estab. mg/dL [facility] Protein, Ur 14.5 Not Estab. mg/dL [facility] Urine Protein/Creatin ine Ratio 168 0 - 200 mg/g creat [facility] Urine (Urine, Clean Catch) 09/25/2024 10:16 AM EST 09/25/2024 Luke Quinn MD LAB URINE ORDERABLES Final Result Performing Organization Address [facility] Co de Phone Number [facility] [place] [address] [place] [address] * Urine Albumin / Creatinine Ratio (09/25/2024 10:16 AM EST) Pathologist [facility] Urine Microalbumin 3.6 Not Estab. ug/mL [facility] Microalbumin/Crea tinine Ratio 4 0 - 29 mg/g creat [facility] Comment: ? Normal: ?0 - ??29 ? Moderately increased: 30 - 300 ? Severely increased: ? >300 Urine (Urine, Clean Catch) 09/25/2024 10:16 AM EST 09/25/2024 Luke Quinn MD LAB URINE ORDERABLES Final Result Performing Organization Address City/[facility]/ZIP Co de Phone Number [employer] [facility] [place] [address] [place] [address] * (ABNORMAL) Vitamin D 25 Hydroxy (09/25/2024 10:16 AM EST) Vitamin D, 25-OH, Total 14.6(L) 30.0 - 100.0 ng/mL [facility] Comment: Vitamin D deficiency has been defined by the [place] of Medicine and an Endocrine Society practice guideline as a level of serum 25-OH vitamin D less than 20 ng/mL (1,2). The Endocrine Society went on to further define vitamin D insufficiency as a level between 21 and 29 ng/mL (2). 1. IOM ([place] of Medicine). 2010. Dietary reference ?? intakes for calcium and D. [place]: The ?? [employer] Press. 2. Edith MF, Tania DINERO, Amando PAREDES, et al. ?? Evaluation, treatment, and prevention of vitamin D ?? deficiency: an Endocrine Society clinical practice ?? guideline. JCEM. 2010; 96(7):1911-30. Blood (Blood, Venous) 09/25/2024 10:16 AM EST 09/25/2024 us Luke Quinn MD LAB BLOOD ORDERABLES Final Result [facility] [address] [place] [address] * (ABNORMAL) Urinalysis (09/25/2024 10:16 AM EST) Specific [place], Urine 1.016 1.005 - 1.030 [facility] [phone] pH Urine 6.0 5.0 - 7.5 [facility] [phone] Color, Urine Yellow Yellow [facility] [phone] Appearance Urine Clear Clear [facility] WBC Esterase Urine Trace(A) Negative [facility] [phone] Protein, Ur Negative Negative/Tra ce [facility] Glucose, Ur Negative Negative [facility] [phone] Ketones, Urine Negative Negative [facility] [phone] Blood Urine Negative Negative [facility] Bilirubin Urine Negative Negative [facility] Urobilinogen Urine 0.2 0.2 - 1.0 mg/dL [facility] [phone] Nitrite, Urine Negative Negative [facility] Microscopic Examination See below: [facility] Comment:Microscopic was binh cated and was performed. Urine (Urine, Clean Catch) 09/25/2024 10:16 AM EST 09/25/2024 us Luke Quinn MD LAB URINE ORDERABLES Final Result [facility] [address] [place] [address] * (ABNORMAL) CBC and Differential (09/25/2024 10:16 AM EST) WBC 8.0 3.4 - 10.8 x10E3/uL [facility] RBC 4.43 3.77 - 5.28 x10E6/uL [facility] Hemoglobin 12.6 11.1 - 15.9 g/dL [facility] Hematocrit 40.4 34.0 - 46.6 % [facility] MCV 91 79 - 97 fL [facility] MCH 28.4 26.6 - 33.0 pg [facility] MCHC 31.2(L) 31.5 - 35.7 g/dL [facility] RDW 14.9 11.7 - 15.4 % [facility] Platelets 193 150 - 450 x10E3/uL [facility] Neutrophils Relative 57 Not Estab. % [facility] Lymphocytes Relative 19 Not Estab. % [facility] Monocytes 10 Not Estab. % [facility] Eosinophils Relative 13 Not Estab. % [facility] Basophils Relative 1 Not Estab. % [facility] Neutrophils Absolute 4.6 1.4 - 7.0 x10E3/uL [facility] Lymphocytes Absolute 1.5 0.7 - 3.1 x10E3/uL [facility] Monocytes Absolute 0.8 0.1 - 0.9 x10E3/uL [facility] Eosinophils Absolute 1.0(H) 0.0 - 0.4 x10E3/uL [facility] Basophils Absolute 0.1 0.0 - 0.2 x10E3/uL [facility] Immature Granulocytes 0 Not Estab. % [facility] Immature Grans (Absolute) 0.0 0.0 - 0.1 x10E3/uL [facility] Blood (Blood, Venous) 09/25/2024 10:16 AM EST 09/25/2024 us Luke Quinn MD LAB BLOOD ORDERABLES Final Result [facility] [address] [place] [address] * Uric Acid (09/25/2024 10:16 AM EST) Uric Acid 4.8 3.1 - 7.9 mg/dL [facility] Comment:Therapeutic target f or gout patients: <6.0 Blood (Blood, Venous) 09/25/2024 10:16 AM EST 09/25/2024 us Luke Quinn MD LAB BLOOD ORDERABLES Final Result [facility] [address] [place] [address] * PTH, Intact (09/25/2024 10:16 AM EST) PTH 34 15 - 65 pg/mL [facility] Blood (Blood, Venous) 09/25/2024 10:16 AM EST 09/25/2024 us Luke Quinn MD LAB BLOOD ORDERABLES Final Result Performing Organization Address [facility] Co de Phone Number [facility] [address] [place] [address] * Magnesium (09/25/2024 10:16 AM EST) Magnesium 2.2 1.6 - 2.3 mg/dL [facility] Blood (Blood, Venous) 09/25/2024 10:16 AM EST 09/25/2024 us Luke Quinn MD LAB BLOOD ORDERABLES Final Result Performing Organization Address City/[facility]/ZIP Co de Phone Number [facility] [address] [place] [address] * (ABNORMAL) Hemoglobin A1c (09/25/2024 10:16 AM EST) Hemoglobin A1C 6.3(H) 4.8 - 5.6 % [facility] Comment: ? Prediabetes: 5.7 - 6.4 ? Diabetes: >6.4 ? Glycemic control for adults with diabetes: <7.0 Blood (Blood, Venous) 09/25/2024 10:16 AM EST 09/25/2024 us Luke Quinn MD LAB BLOOD ORDERABLES Final Result Performing Organization Address City/[facility]/ZIP Co de Phone Number [facility] [address] [place] [address] * Ferritin (09/25/2024 10:16 AM EST) Pathologist [facility] Ferritin 21 15 - 150 ng/mL [facility] Blood (Blood, Venous) 09/25/2024 10:16 AM EST 09/25/2024 us Luke Quinn MD LAB BLOOD ORDERABLES Final Result Performing Organization Address [facility] de Phone Number [facility] [address] [place] [address] * (ABNORMAL) Renal Function Panel (09/25/2024 10:16 AM EST) Glucose 63(L) 70 - 99 mg/dL [facility] BUN 12 8 - 27 mg/dL [facility] Creatinine 0.93 0.57 - 1.00 mg/dL [facility] eGFR CKD-EPI CR 2020 62 >59 mL/min/1.7 3 [facility] BUN/Creatinine Ratio 13 12 - 28 [facility] Sodium 138 134 - 144 mmol/L [facility] Potassium 4.4 3.5 - 5.2 mmol/L [facility] Chloride 103 96 - 106 mmol/L [facility] Bicarbonate (CO2) 22 20 - 29 mmol/L [facility] Calcium 9.2 8.7 - 10.3 mg/dL [facility] Phosphorus 3.1 3.0 - 4.3 mg/dL [facility] Albumin 4.0 3.7 - 4.7 g/dL [facility] Blood (Blood, Venous) 09/25/2024 10:16 AM EST 09/25/2024 Luke Quinn MD LAB BLOOD ORDERABLES Final Result [facility] [address] [place] [address] from Last 3 Months Insurance [place] [employer] [place] Care Teams Supervisor Inspection Relationship Specialty Start Date End Date Jeni Garcia MD [address] [place] [id number] PCP - General Internal Medicine 08/06/21
== END 2024-11-28 11:23 | disposition home or self-care (01) ==
PROVIDERS: PCP Internal Medicine; Visit Provider Internal Medicine
DX: M54.16 Radiculopathy, lumbar region (principal)
CPT/HCPCS: 99213

== ENCOUNTER → 2024-11-28 10:28 | Outpatient (BNVA) | payer OTHER, SELFPAY | PROVIDERS: PCP Internal Medicine; Visit Provider Internal Medicine | DX: M54.16 Radiculopathy, lumbar region (principal) | CPT/HCPCS: 99212 ==

== ENCOUNTER 2024-11-29 18:46 | Emergency (ER) | payer OTHER, SELFPAY ==
--- NOTE | ~2024-11-29 | XR_ITS ---
CLINICAL HISTORY: cough, chest pain 2 views chest Comparison: CR/PA/SR - XR CHEST 1V - 06/28/24 12:50 EDT Findings: Cardiac and mediastinal contours are stable. Mild interstitial prominence with scattered peribronchial thickening. No focal consolidation. No effusion. No pneumothorax. No acute osseous finding. Impression: Mild interstitial prominence with scattered peribronchial thickening. No focal consolidation. This document has been electronically signed by: Phi Hare MD on 11/29/2024 19:59:04
--- NOTE | 2024-11-29 18:54 | ECG_ITS ---
Test Reason : CHEST PAIN Blood Pressure : */* mmHG Vent. Rate : 94 BPM Atrial Rate : 94 BPM P-R Int : 164 ms QRS Dur : 76 ms QT Int : 338 ms P-R-T Axes : 28 -1 51 degrees QTcB Int : 422 ms Normal sinus rhythm Nonspecific ST abnormality Abnormal ECG When compared with ECG of 28-Jun-2024 12:09, Vent. rate has increased by 34 bpm Referred By: My Forrest Electronically Signed By: RYAN GRIFFITHS MD
[2024-11-29 19:09] VITALS: BP 192/70; PULSE 92; RESP 20; TEMP 38.4; O2SAT 96; BMI 36.3
--- NOTE | 2024-11-29 19:09 | ED_ITS ---
HPI - General Adult General Chief complaint: General Medical Stated complaint: Chest pain Time Seen by Provider: 11/30/24 01:46 Source: patient Limitations: language barrier History of Present Illness ED Provider: Alida Greenberg PA-C HPI narrative: 79-year-old female with a history of asthma, peripheral arterial disease, morbid obesity, known lumbar radiculopathy, GERD, hypertension, hypothyroidism, who presents with cough and cold symptoms x1 week. Associated dry cough, body aches, headache, chest pain, subjective fevers at home. Patient does not have any sick contacts with same symptoms. Denies nausea vomiting diarrhea. Related Data Home Medications ?Medication ?Instructions ?Recorded ?Confirmed inhalational spacing device #1 ea 07/16/20 11/28/24 levothyroxine 25 mcg tablet 25 mcg PO DAILY 07/16/20 11/28/24 losartan 100 mg tablet 100 mg PO DAILY 07/16/20 11/28/24 methotrexate sodium 2.5 mg tablet 15 mg PO QWEEK 07/16/20 11/28/24 omeprazole 20 mg capsule,delayed mg PO 07/16/20 11/28/24 release acetaminophen 650 mg 650 mg PO Q12H 08/01/20 11/28/24 tablet,extended release (Tylenol Arthritis Pain) folic acid 1 mg tablet 1 mg PO DAILY 08/01/20 11/28/24 cholecalciferol (vitamin D3) 125 125 mcg PO DAILY 12/31/21 11/28/24 mcg (5,000 unit) capsule gabapentin 100 mg capsule 100 mg PO TID 10/28/22 11/28/24 nebulizers 10/28/22 11/28/24 carvedilol 6.25 mg tablet 6.25 mg PO BID 05/04/24 11/28/24 Previous Rx's ?Medication ?Instructions ?Recorded albuterol sulfate 2.5 mg/3 mL 2.5 mg (3 mL) inhalation Q4-6H PRN 10/04/21 (0.083 %) solution for nebulization Wheezing #90 mL albuterol sulfate 90 mcg/actuation 2 puff inhalation Q4-6H PRN 10/04/21 aerosol inhaler (ProAir HFA) Wheezing #8.5 grams fluticasone propionate 115 2 puff inhalation Q12H 30 days #12 10/28/22 mcg-salmeterol 21 mcg/actuation grams HFA inhaler (Advair HFA) cyclobenzaprine 10 mg tablet 10 mg PO Q8H PRN muscle spasm 10 05/04/24 days #30 tabs montelukast 10 mg tablet 10 mg PO QPM #90 tabs 05/07/24 cyclobenzaprine 10 mg tablet 10 mg PO TID PRN muscle spasm #10 06/28/24 tabs lidocaine 5 % topical patch 1 patch topical DAILY #15 ea 06/28/24 back brace #1 ea 07/11/24 methocarbamol 500 mg tablet 500 mg PO TID PRN muscle spasm #60 07/11/24 tabs methocarbamol 750 mg tablet 750 mg PO BID PRN pain, moderate 11/30/24 #7 tabs Allergies Allergy/AdvReac Type Severity Reaction Status Date / Time codeine [CODEINE] Allergy Mild Rash Verified 11/29/24 19:16 morphine [MORPHINE] Allergy Mild Hallucinati Verified 11/29/24 19:16 ons oxycodone [Percocet] Allergy Mild Hives Verified 11/29/24 19:16 tramadol AdvReac Severe Headache Verified 11/29/24 19:16 Review of Systems 2 Review of Systems: Yes all other systems are reviewed and are negative Constitutional: Constitutional: Reports fatigue, Reports fever(s), Reports headache(s) and Reports malaise ENT: Reports headache(s) Cardiovascular: Cardiovascular: Reports chest pain and Reports dyspnea Respiratory: Respiratory: Reports dyspnea and Reports wheezing Gastrointestinal: Gastrointestinal: Denies diarrhea, Denies nausea and Denies vomiting Musculoskeletal: Musculoskeletal: Reports back pain and Reports myalgias Neurologic: Reports headache(s) Endocrine: Endocrine: Reports fatigue Allergic/Immunologic: Allergic/Immunologic: Reports wheezing PMFSH Past Medical History Attestation statement: The following information was validated with the patient. Medical History Pleural effusion Cellulitis Limb swelling Chest pain Asthma Chronic allergic rhinitis Atelectasis of left lung Family History Family History Father Lung cancer Mother Throat cancer Social History Social History Patient Tobacco Use Status: Former Tobacco user Tobacco use type: Cigarette Years Smoked: 4 years Physical Exam ED Vital Signs: Vital Signs - 24 hr 11/29/24 19:09 Temperature 101.2 F H Pulse Rate 92 Respiratory Rate 20 Blood Pressure 192/70 H Pulse Oximetry 96 Oxygen Delivery Method Room Air BMI result Body Mass Index 36.3 Const Other: Alert Orientation/consciousness: patient oriented x3 Resp Other: Nonlabored respirations, lungs clear to auscultation Cardio Other: Normal peripheral perfusion Skin Other: Warm dry no rash Neuro General: patient oriented x3, no focal motor deficits and CN's II-XI intact bilaterally Psych Other: Cooperative Course Course Course Narrative: This is a rapid medical exam performed by Urmila Forrest NP: Additional HPI, ROS, PE not included below will be deferred to primary provider. Patient is an 79-year-old female with history of asthma, PAD presenting with complaint of 2 weeks of chest pain, back pain radiating to neck. For the past 3 days has had cough, body aches. Denies fevers. Plan: EKG, labs, viral serology Medications Administered Discontinued Medications Generic Name Dose Route Start Last Admin Trade Name Freq PRN Reason Stop Dose Admin Acetaminophen 975 mg 11/30/24 02:45 11/30/24 02:58 Acetaminophen 325 Mg Tablet PO 11/30/24 02:46 975 mg ONCE ONE Administration Methocarbamol 750 mg 11/30/24 02:45 11/30/24 02:58 Methocarbamol 750 Mg Tablet PO 11/30/24 02:46 750 mg ONCE ONE Administration Medical Decision Making Medical Decision Making [facility] Narrative: 79-year-old female with a history of asthma, peripheral arterial disease, morbid obesity, known lumbar radiculopathy, GERD, hypertension, hypothyroidism, who presents with cough and cold symptoms x1 week. Associated dry cough, body aches, headache, chest pain, subjective fevers at home. Patient does not have any sick contacts with same symptoms. Denies nausea vomiting diarrhea. Problem: Asthma, age History: Per patient I have considered the following differential diagnoses: Asthma exacerbation, pneumonia, bronchitis, viral syndrome , ACS Plan: Patient here with multiple complaints. From what she describes, it sounds as if she has had viral related symptoms, she was objectively febrile here in the ER. We will be ordering screening labs, viral panel and a chest x- ray. ACS was considered, EKG and troponin obtained, her symptoms are not consistent with ACS. Labs: No leukocytosis, not anemic, no electrolyte abnormality, troponin baseline, viral panel positive for influenza A EKG: Normal sinus rhythm, rate of 94, no ischemic changes no ectopy, QTC 420 Chest x-ray:Impression: Mild interstitial prominence with scattered peribronchial thickening. No focal consolidation. This document has been electronically signed by: Phi Hare MD on 11/29/2024 19:59:04 Dictated By: Phi Hare MD Lab Data 11/29/24 19:06 11/29/24 19:06 Labs: Lab Results 11/29/24 11/29/24 Range/Units 19:06 19:15 WBC 6.9 (4.8-10.8) X10*3/uL RBC 4.37 (4.20-5.50) X10*6/uL Hgb 11.8 L (12.0-16.0) g/dl Hct 37.2 (37.0-47.0) % MCV 85.1 (80.0-98.0) fL MCH 27.0 (27.0-33.0) pg MCHC 31.7 (31.0-35.0) g/dl RDW 15.8 (11.0-16.0) % Plt Count 177 (160-400) X10*3/uL MPV 11.6 (9.4-12.3) fL Immature Gran % (Auto) 0.6 H (0.0-0.4) % Neut % (Auto) 72.5 (45-73) % Lymph % (Auto) 11.7 L (20-40) % [place] % (Auto) 9.9 (2-11) % Eos % (Auto) 3.9 (0-4) % Baso % (Auto) 1.4 (0-2) % Lymph # (Auto) 0.8 L (1.2-4.9) X10*3/uL [place] # (Auto) 0.7 (0.1-1.2) X10*3/uL Eos # (Auto) 0.3 (0.0-0.4) X10*3/uL Baso # (Auto) 0.1 (0.0-0.2) X10*3/uL Abs Immat Gran (auto) 0.04 H (0.00-0.03) X10*3/uL Absolute Neuts (auto) 5.0 (2.0-8.3) x10*3/uL Absolute Nucleated RBC 0.000 (0.0-0.012) X10*3/uL Nucleated RBC % (auto) 0.0 (0.0-0.2) /100WBC PT 12.6 H (10.9-12.4) SEC INR 1.1 (0.9-1.1) Sodium 137 (135-145) mmol/L Potassium 4.0 (3.3-5.1) mmol/L Chloride 106 (96-108) mmol/L Carbon Dioxide 23 (22-29) mmol/L Anion Gap 12 (12-20) BUN 11 (9-16) mg/dL Creatinine 1.02 (0.5-1.4) mg/dL Estim Creat Clear Calc 38.3 Estimated GFR 52 Random Glucose 109 (60-115) mg/dL Calcium 8.9 (8.4-10.2) mg/dL Total Bilirubin 0.3 (0.0-1.0) mg/dL AST 35 H (5-31) U/L ALT 24 (0-31) U/L Alkaline Phosphatase 64 (39-117) U/L Troponin I High Sens 4.3 (<3.5-17.0) ng/L Total Protein 8.0 (6.5-8.0) g/dL Albumin 3.8 (3.5-5.0) g/dL Influenza Type A (PCR) POSITIVE A (Negative) Influenza Type B (PCR) NEGATIVE (Negative) RSV RNA Qual (PCR) NEGATIVE (Negative) SARS-CoV-2 RNA (RT-PCR) NEGATIVE (Negative) Discharge Plan Discharge Clinical Impression: Influenza A Patient Disposition: Home, Self-Care Instructions: Influenza (ED) Additional Instructions: You were found to test positive for influenza A. See home care instructions. Use [id number] ibuprofen 600 mg taken every 6 hours with food, alternated with [id number] Tylenol 1000 mg taken every 8 hours, as needed for body aches, headache and fever. You can also use the muscle relaxant for your body aches, the methocarbamol, to note this medication will cause drowsiness, do not drive or operate machinery while taking the medication. To note the remainder of your labs were normal including a cardiac enzyme, there were no concerning changes on her EKG in the chest x-ray is clear. You should follow up with your primary care provider this coming week. Prescriptions: New methocarbamol 750 mg tablet 750 mg PO BID PRN (Reason: pain, moderate) Qty: 7 0RF No Action montelukast 10 mg tablet 10 mg PO QPM Qty: 90 3RF albuterol sulfate [ProAir HFA] 90 mcg/actuation HFA aerosol inhaler 2 puff inhalation Q4-6H PRN (Reason: Wheezing) Qty: 8.5 0RF albuterol sulfate 2.5 mg /3 mL (0.083 %) solution for nebulization 2.5 mg inhalation Q4-6H PRN (Reason: Wheezing) Qty: 90 0RF cyclobenzaprine 10 mg tablet 10 mg PO TID PRN (Reason: muscle spasm) Qty: 10 0RF lidocaine 5 % adhesive patch,medicated 1 patch topical DAILY Qty: 15 0RF Rx Instructions: leave on most painful area for up to 12 hrs folic acid 1 mg tablet 1 mg PO DAILY acetaminophen [Tylenol Arthritis Pain] 650 mg tablet extended release 650 mg PO Q12H omeprazole 20 mg capsule,delayed release(DR/EC) PO losartan 100 mg tablet 100 mg PO DAILY methotrexate sodium 2.5 mg tablet 15 mg PO QWEEK (DME) [facility] See Rx Instructions .ROUTE DIRECTED Qty: 1 Rx Instructions: As directed levothyroxine 25 mcg tablet 25 mcg PO DAILY cholecalciferol (vitamin D3) 125 mcg (5,000 unit) capsule 125 mcg PO DAILY (DME) nebulizers [facility] See Rx Instructions .Route Rx Instructions: As directed gabapentin 100 mg capsule 100 mg PO TID Advair HFA 115-21 mcg/actuation HFA aerosol inhaler 2 puff inhalation Q12H 30 Days Qty: 12 11RF carvedilol 6.25 mg tablet 6.25 mg PO BID Rx Instructions: must administer with a meal/food cyclobenzaprine 10 mg tablet 10 mg PO Q8H PRN (Reason: muscle spasm) 10 Days Qty: 30 0RF (DME) back brace [facility] See Rx Instructions .Route Qty: 1 0RF Rx Instructions: As directed methocarbamol 500 mg tablet 500 mg PO TID PRN (Reason: muscle spasm) Qty: 60 0RF Rx Instructions: Discontinue cyclobenzaprine before starting this medication. No driving while taking this medication. Do no take with alcohol or other DIP UNIT OPERATOR Depressants Interventions: ED Discharge Assessment Last Done: 11/30/24 02:59 Discharge Date/Time: 11/30/24 03:18 Print Language: South African
[2024-11-29 19:11] LABS: MANUAL DIFF FLAG NO
[2024-11-29 19:17] LABS: Basophils Absolute Auto 0.1 X10*3/uL (0.0-0.2); Basophils Percent Auto 1.4 % (0-2); Eosinophils Absolute Auto 0.3 X10*3/uL (0.0-0.4); Eosinophils Percent Auto 3.9 % (0-4); Hematocrit 37.2 % (37.0-47.0); Hemoglobin 11.8 g/dl (12.0-16.0); INTERNATIONAL NORM RATIO 1.1 (0.9-1.1); Imm Gran Abs Auto 0.04 X10*3/uL (0.00-0.03); Imm Gran Pct Auto 0.6 % (0.0-0.4); Lymphocytes Absolute Auto 0.8 X10*3/uL (1.2-4.9); Lymphocytes Percent Auto 11.7 % (20-40); Mean Corpuscular HGB Conc 31.7 g/dl (31.0-35.0); Mean Corpuscular Volume 85.1 fL (80.0-98.0); Mean Platelet Volume 11.6 fL (9.4-12.3); Monocytes Absolute Auto 0.7 X10*3/uL (0.1-1.2); Monocytes Percent Auto 9.9 % (2-11); Neutrophils Percent Auto 72.5 % (45-73); Platelet Count 177 X10*3/uL (160-400); Prothrombin Time 12.6 SEC (10.9-12.4); Red Blood Count 4.37 X10*6/uL (4.20-5.50); Red Cell Distribution Width 15.8 % (11.0-16.0); White Blood Count 6.9 X10*3/uL (4.8-10.8)
[2024-11-29 19:26] LABS: Alanine Aminotransferase 24 U/L (0-31); Albumin Level 3.8 g/dL (3.5-5.0); Alkaline Phosphatase 64 U/L (39-117); Anion Gap 12 (12-20); Aspartate Amino Transferase 35 U/L (5-31); Bilirubin Total 0.3 mg/dL (0.0-1.0); Blood Urea Nitrogen 11 mg/dL (9-16); Calcium 8.9 mg/dL (8.4-10.2); Carbon Dioxide 23 mmol/L (22-29); Chloride 106 mmol/L (96-108); Creatinine Clr Calc Pharmacy 38.3; Estimated Glomerular Filt Rate 52; Glucose Random 109 mg/dL (60-115); Sodium 137 mmol/L (135-145)
[2024-11-29 19:33] LABS: Troponin-I High Sensitivity 4.3 ng/L (<3.5-17.0)
[2024-11-29 19:57] LABS: Influenza A PCR POSITIVE (Negative); Influenza B PCR NEGATIVE (Negative); Resp Syncy Virus RNA Qual PCR NEGATIVE (Negative); SARS COV2 PCR INHOUSE NEGATIVE (Negative)
[2024-11-30] MEDS: Acetaminophen 325 MG TABLET 975 MG PO (02:58)
[2024-11-30] MEDS: methocarbamoL 750 MG TABLET PO (02:58)
[2024-11-30 02:59] VITALS: BP 173/84; PULSE 88; RESP 18; TEMP 37.5; O2SAT 96
== END 2024-11-30 03:18 | disposition home or self-care (01) ==
PROVIDERS: Registered Nurse Emergency; Emergency Provider Emergency Medicine; PCP Internal Medicine
DX: J10.1 Influenza due to other identified influenza virus with other respiratory manifestations (principal); R07.89 Other chest pain; R05.9 Cough, unspecified; I10 Essential (primary) hypertension; M79.10 Myalgia, unspecified site; R51.9 Headache, unspecified; R50.9 Fever, unspecified; Z87.891 Personal history of nicotine dependence; Z79.899 Other long term (current) drug therapy; Z03.818 Encounter for observation for suspected exposure to other biological agents ruled out
CPT/HCPCS: 0241U; 36415; 71046; 80053; 84484; 85025; 85610; 93005; 99283

== ENCOUNTER → 2024-11-29 18:54 | Outpatient (BNV) | payer OTHER, SELFPAY | PROVIDERS: Emergency Provider Emergency Medicine; PCP Internal Medicine; Visit Provider Internal Medicine Cardiovascular Disease | DX: R94.31 Abnormal electrocardiogram [ECG] [EKG] (principal); R07.9 Chest pain, unspecified | CPT/HCPCS: 93010 ==

== ENCOUNTER → 2024-11-29 19:11 | Outpatient (BNV) | payer OTHER, SELFPAY | PROVIDERS: PCP Internal Medicine; Visit Provider Radiology Vascular & Interventional Radiology | DX: R05.9 Cough, unspecified (principal); R07.9 Chest pain, unspecified | CPT/HCPCS: 71046 ==

== ENCOUNTER 2024-12-07 12:45 | Outpatient (REF) | payer OTHER, SELFPAY ==
--- NOTE | ~2024-12-07 | XR_ITS ---
EXAMINATION: XR CHEST CLINICAL INFORMATION: Influenza/ worsening cough, ro pneumonia COMPARISON: November 29, 2024. TECHNIQUE: 2 views of the chest were obtained. FINDINGS: [Reticular pattern. Linear opacities in the left hemithorax. No consolidation pleural effusion or pneumothorax. Cardiomediastinal silhouette demonstrates calcified plaque thoracic aorta. Multilevel thoracic and upper lumbar spondylosis. Radiopaque material in a vertebral body of the lower thoracic/upper lumbar spine likely kyphoplasty/vertebroplasty. Metallic prosthesis in the left glenohumeral joint proximal humerus. S-shaped curvature of the thoracolumbar spine. XR/XR chest 2V IMPRESSION: Chronic interstitial lung disease. Subsegmental atelectasis versus scarring left lung. Electronically signed by: Jose Singh MD 12/07/2024 01:30 PM [facility] ORDONEZ
--- OUTSIDE RECORDS SUMMARY | 2024-12-07 13:16 | XMS_ITS | Encounter Summary ---
Author Organization [facility] Address [address] [place] [address] Care Team Providers Care Watch And Clock Maker And Repairer Name Role Phone Jeni Garcia MD Primary Care Provider + [phone] Encounter Details Date Type Department Care Team (Late Contact Info) Description 10/04/[address] 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 10/05/2024 12:26 PM [facility] Clinical Information Heartburn,esophag eal reflux symptoms that persist despite appropriate therapy Finding:R/O oliver's 10/05/2024 12:26 PM [facility] Gross Description A. Esophagus, distal [...] on one slide. 10/05/2024 12:26 PM EST [facility] Disclaimer Unless otherwise specified, all tissue is 10% NB formalin fixed and paraffin embedded. 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
--- OUTSIDE RECORDS SUMMARY | 2024-12-07 13:16 | XMS_ITS | Encounter Summary ---
Author Organization [employer] Address [address] [facility] 7t [place] [address] Care Team Providers Care Speech Language Assistant Name Role Phone Jeni Garcia MD Primary Care Provider + Encounter Details Date Type Department Care Team (Latest Contact Info) Description 12/07/2024 Travel Social History Tobacco Use Types Packs/Day Years [...] Description 05/28/2025 10:00 AM EDT Office Visit [facility] [address] [place] [address] [place] documented as of this encounter Visit Diagnoses Not on filedocumented in this encounter Additional Health Concerns Assessment Noted Time PHQ-9 Depression Total Score: 0 11/16/19 23 10:53 AM EST documented as of this encounter Care Teams Speech Language Assistant Relationship Specialty Start Date End Date Jeni Garcia MD [address] [place] [address] PCP - General Family Medicine 12/16/15 documented as of this encounter
--- OUTSIDE RECORDS SUMMARY | 2024-12-07 13:16 | XMS_ITS | Encounter Summary ---
Author Organization [facility] Address [address] [place] [address] Care Team Providers Care Injection Molding Machine Offbearer Name Role Phone Jeni Garcia MD Primary Care Provider + [phone] Encounter Details Date Type Department Care Team (Late st Contact Info) Description 11/14/2024 Telephone Gastroenterology - 299 [facility] 299 [facility] [address] [place] [address] Jessy Aguila MA Social History [...] H&P faxed to Dr. Misael Santillan at [phone] documented in this encounter Plan of Treatment Upcoming Encounters Date Type Department Care Team (Late st Contact Info) Description 01/02/2025 2:30 PM EDT Office Visit Orthopedic Surgery - [place] [address] 175 [facility] [address] [place] [phone] Lazaro Saleh MD 175 [facility] [address] [place], [place] [phone] documented as of this encounter Visit Diagnoses Not on filedocumented in this encounter Care Teams Injection Molding Machine Offbearer Relationship Specialty Start Date End Date Jeni Garcia MD [address] [place] [phone] PCP - General 05/19/21 documented as of this encounter
--- OUTSIDE RECORDS SUMMARY | 2024-12-07 13:16 | XMS_ITS | Encounter Summary ---
Author Organization [facility] [facility] Address [address] [facility] 7t [place] [address] Care Team Providers Care Fruit Distributor Name Role Phone Jeni Garcia MD Primary Care Provider + Encounter Details Date Type Department Care Team (Late Contact Info) Description 02/25/2023 Orders Only [facility] [address] [place] [phone] Jeni Garcia MD [address] [place] [address] Obstructive sleep apnea syndrome (Primary Dx) Social [...] Description 05/28/2025 10:00 AM EDT Office Visit [facility] [address] [place] [address] [place] documented as of this encounter Visit Diagnoses Diagnosis Obstructive sleep apnea syndrome- Primary Obstructive sleep apnea (adult) (pediatric) documented in this encounter Additional Health Concerns Assessment Noted Time PHQ-9 Depression Total Score: 0 11/16/19 23 10:53 AM EST documented as of this encounter Care Teams Fruit Distributor Relationship Specialty Start Date End Date Jeni Garcia MD [address] [place] [address] PCP - General Family Medicine 12/16/15 documented as of this encounter
--- OUTSIDE RECORDS SUMMARY | 2024-12-07 13:16 | XMS_ITS | Encounter Summary ---
Author Organization [employer] Address [address] [facility] 7t [place] [address] Care Team Providers Care Head Girls Golf Coach Name Role Phone Jeni Garcia MD Primary Care Provider + Reason for Visit * Reason Onset Date Comments Chart prep 12/05/2024 Encounter Details Date Type Department Care Team ([facility] st Contact Info) Description 12/05/2024 Telephone [facility] [address] [place], [place] [phone] Jeni Garcia MD 230 [place], [place] [phone] Chart prep Social History Tobacco Use Types Packs/Day Years Used Date Smoking Tobacco: Never Passive Smoke Exposure: Never Smokeless Tobacco: Never Alcohol Use Standard Drinks/Week Comments Never 0 (1 standard drink = 0.6 oz pur e alcohol) Depression Answer Date Recorded Patient Health Questionnaire-9 Score 0 11/16/2022 Housing Stability Answer Date Recorded What is your housing situation today? I have dimitry daams 12/12/[address] you li [...] encounter Miscellaneous Notes * Telephone Encounter - Karol Rothman [place] - 12/05/2024 10:21 AM EST Chart Prep Labs: done Images: done Vaccines due: yes Referrals: complete Screenings: N/A Overdue care gaps: N/A documented in this encounter Plan of Treatment Upcoming Encounters Date Type Department Care Team (Late st Contact Info) Description 05/28/2025 10:00 AM EDT Office Visit [facility] ADULT [facility] [address] [place] [address] [place] documented as of this encounter Visit Diagnoses Not on filedocumented in this encounter Additional Health Concerns Assessment Noted Time PHQ-9 Depression Total Score: 0 11/16/19 23 10:53 AM EST documented as of this encounter Care Teams Head Girls Golf Coach Relationship Specialty Start Date End Date Jeni Garcia MD [address] [place] [address] PCP - General Family Medicine 12/16/15 documented as of this encounter
--- OUTSIDE RECORDS SUMMARY | 2024-12-07 13:16 | XMS_ITS | Encounter Summary ---
Author Organization [facility] Address [address] [place] [address] Care Team Providers Care Assistant Store Manager Name Role Phone Jeni Garcia MD Primary Care Provider + [phone] Reason for Visit * Reason Comments Pain Encounter Details Date Type Department Care Team (Latest Contact Info) Description 11/15/2024 11:00 AM EST Office Visit Orthopedic Surgery - [place] [address] [address] Eloisa Torres NP [address] [address] Post-traumatic osteoarthritis of left knee (Primary Dx); [...] 11/15/2024 11:00 AM EST [facility] Date: 11/15/24 CHIEF COMPLAINT: Pain of the Left Knee had concerns including Pain of the Left Knee. IDENTIFIER: Joan Armendariz is a 79 y.o. old female. Primary Care Physician: Jeni Garcia MD Nephrology Social Worker: Yamil Pate #[id number] [facility] Joan Armendariz is a 79 y.o. year [...] injections within the last year through her general internist office, Dr. Novak.Unfortunately she did not find [...] Left knee pain Views: AP, Lateral, Silvestre, Wingo left knee Findings: On AP view there [...] Thank you for your referral. Karol Torres RECRUITMENT AND OUTREACH ASSISTANT 175 [facility], [address] [place] [address] W: [phone] F: [phone] Portions of this note were dictated utilizing the speech recognition software. Cosigned by Lazaro Saleh MD at 11/15/2024 11:59 AM EST documented in this encounter Plan of Treatment Upcoming Encounters Date Type Department Care Team (Late st Contact Info) Description 01/02/2025 2:30 PM EDT Office Visit Orthopedic Surgery - [place] [address] [phone] Lazaro Saleh MD [address] [address] documented as of this encounter Visit Diagnoses [...] MEAL added in this encounter Care Teams Assistant Store Manager Relationship Specialty Start Date End Date Jeni Garcia MD 230 [facility] [address] [place] [address] PCP - General 05/19/21 documented as of this encounter
--- OUTSIDE RECORDS SUMMARY | 2024-12-07 13:16 | XMS_ITS | Clinical Summary ---
Author Organization 175 [facility] Address [address] [place] [address] Phone Care Team Providers Care Lock Plater Name Role Phone Jeni Garcia MD Primary Care Provider + [phone] Allergies Active Allergy Reactions Criticality Noted Date [...] MOUTH WITH BREAKFAST AND EVENING MEAL Active aspirin 81 mg EC tablet Take 1 tablet (81 mg total) by mouth. 5 04/29/20 25 Active methotrexate 2.5 mg tablet TAKE 8 TABLETS ONCE WEEKLY ON MONDAYS Active loratadine (CLARITIN) 10 mg tablet Take 1 tablet (10 mg total) by mouth 1 (one) time each day in the morning. Active atorvastatin (LIPITOR) 10 mg tablet Take 1 tablet (10 mg total) by mouth. 5 04/29/20 25 Active Active Problems Problem Noted Date Diagnosed Date Cholelithiasis 12/03/2024 CKD (chronic kidney disease), stage III 11/15/19 25 Severe obesity (BMI 35.0-39.9) with comorbidity 11/15/2024 Dental plaque 11/13/2024 Cellulitis 09/04/2024 Fracture of vertebra due to osteoporosis with delayed healing 07/06/2024 Overview (11/15/2024): Xray L-spine on 06/28: L4 fracture/sp T12 vertebral augmentation-previous fx- Leg pain, diffuse, right 06/28/2024 Celiac artery stenosis 06/13/2024 Renal artery stenosis 06/13/2024 Superior mesenteric artery stenosis 06/13/2024 Open broken tooth due to trauma without complica tion 04/26/2024 Abdominal pain 04/16/2024 Vitamin D deficiency 03/13/2024 Sciatica associated with disorder of lumbar spin e 01/20/2024 Cough in adult 08/22/2023 Meralgia paresthetica of right side 04/26/2023 Class 1 obesity 04/12/2023 Biliary calculus 04/12/2023 Calculus of lower urinary tract 11/16/2022 Asthma 10/19/2022 Sleep apnea 10/19/2022 Greater trochanteric pain syndrome 10/19/2022 Tendinitis of right rotator cuff 10/19/2022 Venous insufficiency of leg 10/19/2022 Closed fracture of fifth metatarsal bone 023 Edema of lower extremity 10/19/2022 Hematuria 10/19/2022 History of cholecystectomy 10/19/2022 Primary osteoarthritis of left knee 10/19/2022 Right flank pain 10/19/2022 Chest pain 10/19/2022 Pain in lower limb 10/19/2022 Prediabetes 09/17/2021 Arthritis of carpometacarpal (CMC) joint of righ t thumb 04/06/2021 Primary osteoarthritis of both knees 02/16/2019 Osteopenia 06/23/2018 Calcaneal spur 06/23/2018 Heel pain 02/20/2018 Eczema 01/06/2018 Chronic low back pain 06/28/2017 Hypothyroidism 06/28/2017 Rheumatoid arthritis, adult 06/28/2017 Degeneration of lumbar intervertebral disc 12/10 Chronic obstructive pulmonary disease 12/11/2012 Angle-closure glaucoma 09/29/2012 GERD (gastroesophageal reflux disease) 2 Eosinophil count raised 05/15/2012 Hypertension 04/12/2012 Abnormal gait 04/12/2012 Neck pain 04/12/2012 Encounters Date Type Department Care Team Description 11/26/2024 3:53 PM EST - 11/26/2024 11:59 PM EST Hospital Encounter [facility] Ultrasound [address] [place] [phone] Localized swelling of right lower leg Discharge Disposition: Home or Self Care 11/26/2024 1:30 PM EST Office Visit Orthopedic Surgery - [place] [address] [facility] [address] [place] [phone] Kp Lyn, DPM Localized swelling of right lower leg [...] AM EST Office Visit Orthopedic Surgery - [place] [address] [phone] Eloisa Torres NP Post-traumatic osteoarthritis of left knee (Primary Dx); History of total right knee replacement (TKR); Personal history of DVT (deep vein thrombosis) 11/14/2024 1:40 PM EST Office Visit Gastroenterology - [address] [phone] Jing Fields NP Gastroesophageal reflux disease, unspecified whether esophagitis present (Primary Dx) 11/14/2024 Telephone Gastroenterology - [address] [phone] Jessy Aguila MA 10/31/2024 Telephone Gastroenterology - [address] [phone] Emma Leonard MA 10/31/2024 Telephone Gastroenterology - [address] [phone] Emma Leonard MA 10/12/2024 Telephone Gastroenterology - [address] [phone] Jessy Aguila MA 10/04/2024 Lab Requisition [facility] - Main Lab 299 [facility] [place] [phone] Samy Becerril MD 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 09/20/2024 Telephone Gastroenterology - [address] [phone] Samy Becerril MD from Last 3 Months [...] PM EDT Office Visit Orthopedic Surgery - [place] [phone] [phone] Lazaro Saleh MD [address] [address] Health Maintenance Due Date Last Done Comments [...] Signed Date: 11/26/2024 16:32 ET Workstation ID: [id number] Transcribed By: Self Edit Transcribed Date: 11/26/2024 [...] Signed Date: 11/26/2024 16:32 ET Workstation ID: [id number] Transcribed By: Self Edit Transcribed Date: 11/26/2024 16:32 ET us Kp Lyn DPM CV VASCULAR PROCEDURES Fi nal Result * XR Knee 4+ Views Left (11/15/2024 10:43 AM EST) Anatomical Region Laterality Modality Lower Extremities, Knee Left Computed Radiography Narrative 11/15/2024 11:28 AM EST Date of Visit: 11/15/2024 Reason for visit: ?? Left knee pain Views: AP, Lateral, Silvestre, [place] left knee Findings: On AP view there is narrowing through the medial greater than lateral compartment of the left knee with subchondral sclerosis and small marginal osteophytes. ??Note of stable appearing right total knee replacement. ??Moderate degenerative changes seen through the patellofemoral compartment on sunrise view. ??No acute findings. Impression: Moderate osteoarthritis left knee. Eloisa Torres NP IMG XR PROCEDURES Final Result * External [...] glandular epithelium identified. 10/05/2024 12:26 PM EST [facility] Clinical Information Heartburn,esophag eal reflux symptoms that persist despite appropriate therapy Finding:R/O oliver's 10/05/2024 12:26 PM EST [facility] Gross Description A. Esophagus, [...] on one slide. 10/05/2024 12:26 PM EST [facility] Disclaimer Unless otherwise specified, all tissue is 10% NB formalin fixed and paraffin embedded. 10/05/2024 12:26 PM EST [facility] Tissue Esophageal structure / Unknown 10/03/2024 10/04/2024 5:36 AM EST Tissue specimen (specimen) Esophageal structure / Unknown 10/03/2024 10/04/2024 5:36 AM EST us Samy Becerril MD LAB PATHOLOGY ORDERABLES Fi nal Result [facility] [address] [place] [address], from Last 3 Months Insurance MEDICAID - [place] [employer] MEDICARE Advance Directives Documents on File Type Date Recorded Patient Surgical Assist Expl anation Health Care Decision (hx) 03/27/2019 [...] (hx) 03/27/2019 AD CEJA DIRECTIVE Care Teams Lock Plater Relationship Specialty Start Date End Date Jeni Garcia MD [address] [place] [phone] PCP - General 05/19/21
--- OUTSIDE RECORDS SUMMARY | 2024-12-07 13:16 | XMS_ITS | Encounter Summary ---
Author Organization [employer] Address [address] [facility] 7t [place] [address] Care Team Providers Care Paraprofessional Aide Teacher Name Role Phone Jeni Garcia MD Primary Care Provider + Reason for Visit * Reason Onset Date Comments Nurse Triage 11/28/2024 Encounter Details Date Type Department Care Team ([facility] st Contact Info) Description 11/28/2024 Telephone [facility] MEDICINE [address] [place], [place] [phone] Jeni Garcia MD [address] [place], [place] [phone] Nurse Triage Social History Tobacco Use Types Packs/Day Years [...] encounter Miscellaneous Notes * Telephone Encounter - Janice Sanford RN - 11/28/2024 3:41 PM EST called pt to triage, spoke to pt. through [employer] burning supervisor. pt states saw Pain Management this morning and her BP reading was high>200/100. pt states her BP readings this week have been higher than usual at 170-190/70-80's. pt states taking her BP medications as prescribed and is careful of dietary salt. pt states intermittent headaches but denies blurred vision, numbness, chest pain, sob, or other associated symptoms. given appt with red team provider Tuesday at 3:15 for exam. advised home care: rest, fluids, BP medications, monitor symptoms, and call back if worsening or new concerns. pt understands and agrees with plan. no available appt with PCP at this time. insurance verified. Protocol Used: Blood Pressure - High (Adult) Protocol-Based Disposition: See in Office or Video Visit within 3 Days Video visit offer not recorded Positive Triage Question: * Systolic BP >= 160 OR Diastolic >= 100 * All higher-acuity triage questions were negative Care Advice Discussed: * High Blood Pressure * High Blood Pressure - Lifestyle Changes * How to Check Your Blood Pressure? * Reasons To Call Back - Headache, blurred vision, difficulty talking, or difficulty walking occurs - Chest pain or difficulty breathing occurs - You want to go into the office for a blood pressure check - You become worse * Telephone Encounter - Victorino Stark - 11/28/2024 2:44 PM EST Symptoms: High Blood Pressure - Caller Reports, Headache Outcome: Schedule an urgent appointment (within 1 hour) or talk to a nurse or provider soon Reason: Getting worse The caller accepted this outcome. documented in this encounter Plan of Treatment Upcoming Encounters Date Type Department Care Team (Late st Contact Info) Description 05/28/2025 10:00 AM EDT Office Visit [facility] ADULT DENTAL [address] [place] [address] Blessing Bah documented as of this encounter Visit Diagnoses Not on filedocumented in this encounter Additional Health Concerns Assessment Noted Time PHQ-9 Depression Total Score: 0 11/16/19 23 10:53 AM EST documented as of this encounter Care Teams Paraprofessional Aide Teacher Relationship Specialty Start Date End Date Jeni Garcia MD [address] [place] [phone] PCP - General Family Medicine 12/16/15 documented as of this encounter
--- OUTSIDE RECORDS SUMMARY | 2024-12-07 13:16 | XMS_ITS | Encounter Summary ---
Author Organization [employer] Address 75 [facility] 7t [place] [address] Care Team Providers Care Public Health Technician Name Role Phone Jeni Garcia MD Primary Care Provider + Reason for Visit * Reason Onset Date Comments C pap request 01/26/2023 Encounter Details Date Type Department Care Team ([facility] st Contact Info) Description 01/26/2023 Telephone [facility]INE [address] [place], [place] [phone] Jeni Garcia MD [address] [place], [place] [phone] C pap request Social History Tobacco Use [...] on CPAP machine. Please contact pt at [phone] (Arabic speaker) * Telephone Encounter - Aleshia Stark [...] 10:00 AM EDT Office Visit [facility] ADULT DENTAL [address] [place] [address] Blessing Bah documented as of this encounter Visit Diagnoses Not on filedocumented in this encounter Additional Health Concerns Assessment Noted Time PHQ-9 Depression Total Score: 0 11/16/19 23 10:53 AM EST documented as of this encounter Care Teams Public Health Technician Relationship Specialty Start Date End Date Jeni Garcia MD [address] [place] [phone] PCP - General Family Medicine 12/16/15 documented as of this encounter
--- OUTSIDE RECORDS SUMMARY | 2024-12-07 13:16 | XMS_ITS | Encounter Summary ---
Author Organization [employer] Address 75 [facility] 7t [place] [address] Care Team Providers Care Manager Reimbursement Name Role Phone Jeni Garcia MD Primary Care Provider + Encounter Details Date Type Department Care Team (Late st Contact Info) Description 11/29/2024 Orders Only GENERIC EXTERNAL DATA DEPARTMENT Provider, Generic External Data Social History Tobacco Use Types Packs/Day Years [...] Encounter Note - Jeni Garcia MD - 11/29/2024 7:17 PM EST Patient was apparently in [place] emergency room on 11/29 with flu and probably bronchitis. Please call her on Tuesday for health status check and see if she needs additional follow-up or if she is recovering well. documented in this encounter Plan of Treatment Upcoming Encounters Date Type Department Care Team (Late st Contact Info) Description 05/28/2025 10:00 AM EDT Office Visit [facility] ADULT DENTAL [address] [place] [address] Blessing Bah documented as of this encounter Procedures Procedure Name Priority Date/Time Associated Diagnosis Comments XR CHEST 2 VIEWS Routine 11/29/2024 7:59 PM EST SARS COV2/INFLUENZA A/B AND RSV RNA QL NAAT Routine 11/29/2024 7:15 PM EST HIGH SENSITIVITY TROPONIN I Routine 11/29/2024 7:06 PM EST CBC WITH AUTO DIFFERENTIAL Routine 11/29/2024 7:06 PM EST PROTHROMBIN TIME-INR Routine 11/29/2024 7:06 PM EST COMPREHENSIVE METABOLIC PANEL Routine 11/29/2024 7:06 PM EST documented in this encounter Results * XR Chest 2 Views (11/29/2024 7:59 PM EST) Anatomical Region Laterality Modality Chest Radiographic Tamiko ging 11/29/2024 7:59 PM EST Narrative 11/29/2024 8:00 PM EST ? [facility] [place] [facility] ?[address] ?[place] [address] ?XRay Report ? Signed ? Patient: Armendariz,Joan R ?MR#: [id number] ?? 594 ? : 1945 ?Acct:[id number] ? Age/Sex: 79 / F ?ADM Date: 11/29/24 ? Loc: HO.ED ? Attending Dr: ? Ordering Physician: My Forrest NP ?? Date of Service: 11/29/24 ?? Procedure(s): XR chest 2V ?? Accession Number(s): [id number] ? cc: Jeni Garcia MD; My Forrest NP ? CLINICAL HISTORY: cough, chest pain ? 2 views chest ? Comparison: CR/NH/SR - XR CHEST 1V - 06/28/24 12:50 EDT ? Findings: ?? Cardiac and mediastinal contours are stable. ?? Mild interstitial prominence with scattered peribronchial thickening. ?? No focal consolidation. No effusion. No pneumothorax. ?? No acute osseous finding. ? Impression: ?? Mild interstitial prominence with scattered peribronchial thickening. No ?? focal consolidation. ? This document has been electronically signed by: Phi Hare MD on ?? 11/29/2024 19:59:04 ? Dictated By: ?Phi Hare MD ? Signed By: ?<Electronically signed by Phi Hare MD in OV> ? 11/29/241958 ? DD/ 58 ? TD/TT: 11/29/241958 ? Complaints Coordinator: ? Procedure Note Willie Maurer - 11/29/[address] [address] XRay Report Signed Patient: Joan Armendariz RMR#: [id number] : 3Acct:[id number] Age/Sex: 79 / FADM Date: 11/29/24 Loc: HO.ED Attending Dr: Ordering Physician: My Forrest NP Date of Service: 11/29/24 Procedure(s): XR chest 2V Accession Number(s): [id number] cc: Jeni Garcia MD; My Forrest NP CLINICAL HISTORY: cough, chest pain 2 views chest Comparison: CR/NH/SR - XR CHEST 1V - 06/28/24 12:50 EDT Findings: Cardiac and mediastinal contours are stable. Mild interstitial prominence with scattered peribronchial thickening. No focal consolidation. No effusion. No pneumothorax. No acute osseous finding. Impression: Mild interstitial prominence with scattered peribronchial thickening. No focal consolidation. This document has been electronically signed by: Phi Hare MD on 11/29/2024 19:59:04 Dictated By: Phi Hare MD Signed By: <Electronically signed by Phi Hare MD in OV> 11/29/241958 DD/ 58 TD/TT: 11/29/241958 Complaints Coordinator: [facility] External Provider IMG XR PROCEDURES Edited Result - Final * (ABNORMAL) SARS-CoV-2 RNA, Influenza A/B, and RSV RNA, Ql NAAT (11/29/2024 7:15 PM EST) Influenza A PCR POSITIVE(A) Negative [facility] Influenza B PCR NEGATIVE Negative [facility] Resp Syncy Virus RNA Qual PCR NEGATIVE Negative [facility] SARS COV2 PCR NEGATIVE Negative [facility] Comment:All test results mus t be correlated with clinical findings.Negative results do not preclude SARS-CoV2, influenza Avirus, influenza B virus and/or RSV infectionand should not be used as the sole basis for treatment orother patient management decisions. Negative results must becombined with clinical observations, patient history, andepidemiological information.This test has not been evaluated for monitoring treatment ofinfection.This test has been authorized by the FDA under an EmergencyUse Authorization (EUA) for use by authorized laboratories.Testing performed on the Starfish 360 GeneXpert utilizingreal-time RT-PCR.All SARS CoV2 and positive influenza A/B results arereported to [facility]. 11/29/2024 7:15 PM EST 11/29/2024 7:17 PM EST Generic External Data Provider LAB MICROBIOLOGY - GENERAL ORDERABLES Final Result Performing Organization Address [facility]/ZIP Co de Phone Number [facility] [address] [place] [phone] * High Sensitivity Troponin I (11/29/2024 7:06 PM EST) Pathologist [facility] TROPONIN I HIGH SENSITIVITY 4.3 <3.5 - 17.0 ng/L [facility] Comment:The [place] high sens itivity Troponin-I results should beused in conjunction with other diagnostic information suchas ECG, clinical observations and information, and patientsymptoms to aid in the diagnosis of [place]. 11/29/2024 7:06 PM EST 11/29/2024 7:10 PM EST us Generic External Data Provider LAB BLOOD ORDERAB LES Final Result Performing Organization Address [facility] Co de Phone Number [facility] [address] [place] [phone] * (ABNORMAL) Comprehensive Metabolic Panel (11/29/2024 7:06 PM EST) Pathologist [facility] Sodium 137 135 - 145 mmol/L [facility] Potassium 4.0 3.3 - 5.1 mmol/L [facility] Chloride 106 96 - 108 mmol/L [facility] Carbon Dioxide 23 22 - 29 mmol/L [facility] Anion Gap 12 12 - 20 [facility] Urea Nitrogen (BUN) 11 9 - 16 mg/dL [facility] Creatinine, Serum 1.02 0.5 - 1.4 mg/dL [facility] Creatinine Clr Calc Pharmacy 38.3 [facility] Comment:Provided height and weight: 147.32 cm,78.8 kg.eGFR (calculated from the MDRD study equation) and eCrCl(calculated from the Cockcroft-Gault equation) are based ondifferent parameters and may not yield comparable results.If eCrCl result is absurd, please check patient'sheight/weight. Estimated Glomerular Filt Rate 52 [facility] Comment:Chronic Kidney Disea se: Estimated GFR < 60 mL/min/1.05b9Refzhs Kidney Disease: Estimated GFR < 15 mL/min/1.73m2 Glucose 109 60 - 115 mg/dL [facility] Calcium 8.9 8.4 - 10.2 mg/dL [facility] Bilirubin, Total 0.3 0.0 - 1.0 mg/dL [facility] Aspartate Amino Transferase 35(H) 5 - 31 U/L [facility] Alanine Aminotransferase 24 0 - 31 U/L [facility] Total Protein 8.0 6.5 - 8.0 g/dL [facility] Albumin Level 3.8 3.5 - 5.0 g/dL [facility] Alkaline Phosphatase 64 39 - 117 U/L [facility] 11/29/2024 7:06 PM EST 11/29/2024 7:10 PM EST us Generic External Data Provider LAB BLOOD ORDERAB LES Final Result Performing Organization Address City/[facility] Co de Phone Number [facility] [address] [place] [phone] * (ABNORMAL) Prothrombin Time-INR (11/29/2024 7:06 PM EST) Prothrombin Time 12.6(H) 10.9 - 12.4 SEC [facility] INTERNATIONAL NORM RATIO 1.1 0.9 - 1.1 [facility] Comment:INTERNATIONAL NORMAL IZED RATIO (INR) REFERENCE RANGES Reference RangeFor patients not on anticoagulant therapy: 0.9 - 1.1INR ranges for oral anticoagulanttherapy:For prevention and treatment of venous thrombosis and pulmonary embolism: 2.0 - 3.0For acute myocardial infarction with aspirin therapy: 2.0 - 3.0For acute myocardial infarction without aspirin therapy: 3.0 - 4.0For patients with mechanical prosthetic heart valves: 2.5 - 3.5 11/29/2024 7:06 PM EST 11/29/2024 7:10 PM EST us Generic External Data Provider LAB BLOOD ORDERAB LES Final Result Performing Organization Address City/[facility]/ZIP Co de Phone Number [facility] [address] [place], [place] [phone] * (ABNORMAL) CBC auto differential (11/29/2024 7:06 PM EST) White Blood Count 6.9 4.8 - 10.8 X10*3/uL [facility] Red Blood Count 4.37 4.20 - 5.50 X10*6/uL [facility] Hemoglobin 11.8(L) 12.0 - 16.0 g/dl [facility] Hematocrit 37.2 37.0 - 47.0 % [facility] Mean Corpuscular Volume 85.1 80.0 - 98.0 fL [facility] Mean Corpuscular Hemoglobin 27.0 27.0 - 33.0 pg [facility] Mean Corpuscular HGB Conc 31.7 31.0 - 35.0 g/dl [facility] Red Cell Distribution Width 15.8 11.0 - 16.0 % [facility] Platelet Count 177 160 - 400 X10*3/uL [facility] Mean Platelet Volume 11.6 9.4 - 12.3 fL [facility] Neutrophils Percent Auto 72.5 45 - 73 % [facility] Imm Gran Pct Auto 0.6(H) 0.0 - 0.4 % [facility] Lymphocytes Percent Auto 11.7(L) 20 - 40 % [facility] Monocytes Percent Auto 9.9 2 - 11 % [facility] Eosinophils Percent Auto 3.9 0 - 4 % [facility] Basophils Percent Auto 1.4 0 - 2 % [facility] NRBC Pct Auto 0.0 0.0 - 0.2 /100WBC [facility] Neutrophils Absolute Auto 5.0 2.0 - 8.3 x10*3/uL [facility] Imm Gran Abs Auto 0.04(H) 0.00 - 0.03 X10*3/uL [facility] Lymphocytes Absolute Auto 0.8(L) 1.2 - 4.9 X10*3/uL [facility] Monocytes Absolute Auto 0.7 0.1 - 1.2 X10*3/uL [facility] Eosinophils Absolute Auto 0.3 0.0 - 0.4 X10*3/uL [facility] Basophils Absolute Auto 0.1 0.0 - 0.2 X10*3/uL [facility] NRBC Abs Auto 0.000 0.0 - 0.012 X10*3/uL [facility] 11/29/2024 7:06 PM EST 11/29/2024 7:10 PM EST us Generic External Data Provider LAB BLOOD ORDERAB LES Final Result [facility] [address] [place] [phone] documented in this encounter Visit Diagnoses Not on filedocumented in this encounter Additional Health Concerns Assessment Noted Time PHQ-9 Depression Total Score: 0 11/16/19 23 10:53 AM EST documented as of this encounter Care Teams Manager Reimbursement Relationship Specialty Start Date End Date Jeni Garcia MD [address] [place] [address] PCP - General Family Medicine 12/16/15 documented as of this encounter
--- OUTSIDE RECORDS SUMMARY | 2024-12-07 13:16 | XMS_ITS | Encounter Summary ---
Author Organization [employer] Address [address] [facility] 7t [place] [address] Care Team Providers Care Taping Machine Operator Name Role Phone Jeni Garcia MD Primary Care Provider + Reason for Visit * Reason Onset Date Comments ER Follow-up 12/04/2024 Encounter Details Date Type Department Care Team ([facility] st Contact Info) Description 12/04/2024 Telephone [facility] MEDICINE [address] [place], [place] [phone] Jeni Garcia MD [address] [place], [place] [phone] ER Follow-up Social History Tobacco Use Types Packs/Day [...] encounter Miscellaneous Notes * Telephone Encounter - Yvonne Robles RN - 12/04/2024 10:26 AM EST Noted. RN spoke to patient in regards to below message in previous TC encounter today. No further f/u needed. * Telephone Encounter - Victorino Stark - 12/04/2024 9:10 AM EST Patient calling to report ED visit on : Date: 11/29/2024 Hospital: [facility] Seen for: Flu , Cough Symptomatic No *if yes message should go to Triage Patient advised will forward to team nurse for follow up documented in this encounter Plan of Treatment Upcoming Encounters Date Type Department Care Team (Late st Contact Info) Description 05/28/2025 10:00 AM EDT Office Visit [facility] ADULT DENTAL [address] [place] [address] Blessing [place] documented as of this encounter Visit Diagnoses Not on filedocumented in this encounter Additional Health Concerns Assessment Noted Time PHQ-9 Depression Total Score: 0 11/16/19 23 10:53 AM EST documented as of this encounter Care Teams Taping Machine Operator Relationship Specialty Start Date End Date Jeni Garcia MD [address] [place] [address] PCP - General Family Medicine 12/16/15 documented as of this encounter
--- OUTSIDE RECORDS SUMMARY | 2024-12-07 13:16 | XMS_ITS | Encounter Summary ---
Author Organization [facility] Address [address] [place] [address] Care Team Providers Care Babysitter Name Role Phone Jeni Garcia MD Primary Care Provider + [phone] Reason for Referral * Imaging (Routine) - Pending Review Specialty Diagnoses / Procedures Referred By Contac t Referred To Contact Diagnoses Localized swelling of right lower leg Procedures Vascular US duplex lower extremity venous right Kp Lyn DPM [address] [address] Phone: tel: fax: [facility] Referral ID Status Reason Start Date Expiration Date V isits Requested Visits Authorized [id number] Pending Review 11/26/2024 11/26/2025 1 1 Reason for Visit * Imaging (Routine) - Pending Review Specialty Diagnoses / Procedures Referred By Contac t Referred To Contact Diagnoses Localized swelling of right lower leg Procedures Vascular US duplex lower extremity venous right Kp Lyn DPM [address] [address] Phone: tel: fax: [facility] Referral ID Status Reason Start Date Expiration Date V isits Requested Visits Authorized [id number] Pending Review 11/26/2024 11/26/2025 1 1 Encounter Details Date Type Department Care Team (Latest Contact Info) Description 11/26/2024 3:53 PM EST - 11/26/2024 11:59 PM EST Hospital Encounter [facility] Ultrasound [address] [place] [address] Localized swelling of right lower [...] by mouth every 6 hours as needed. aspirin 81 mg EC tablet Take 1 tablet (81 mg total) by mouth. 10/31/2024 5 atorvastatin (LIPITOR) 10 mg tablet Take 1 tablet (10 mg total) by mouth. 10/31/2024 5 BIOTIN ORAL Take by mouth. carvediloL (COREG) [...] chew, or split. 60 each 11 11/14/2024 documented as of this encounter Discharge Disposition Disposition Code Departure Means Destination Home or Self Care documented in this encounter Plan of Treatment Upcoming Encounters Date Type Department Care Team (Late st Contact Info) Description 01/02/2025 2:30 PM EDT Office Visit Orthopedic Surgery - [place] [address] 175 [facility] [address] [place] [phone] Lazaro Saleh MD 175 [facility] [address] [place] [address] documented as of this encounter Procedures Procedure [...] Signed Date: 11/26/2024 16:32 ET Workstation ID: [id number] Transcribed By: Self Edit Transcribed Date: 11/26/2024 [...] Signed Date: 11/26/2024 16:32 ET Workstation ID: [id number] Transcribed By: Self Edit Transcribed Date: 11/26/2024 16:32 ET us Kp Lyn DPM CV VASCULAR PROCEDURES Fi nal Result documented in this encounter Visit Diagnoses Diagnosis Localized swelling of right lower leg documented in this encounter Care Teams Babysitter Relationship Specialty Start Date End Date Jnei Garcia MD [address] [phone] PCP - General 05/19/21 documented as of this encounter
--- OUTSIDE RECORDS SUMMARY | 2024-12-07 13:16 | XMS_ITS | Encounter Summary ---
Author Organization [employer] Address [address] [facility] 7t [place] [address] Care Team Providers Care Detention Attendant Name Role Phone Jeni Garcia MD Primary Care Provider + Reason for Visit * Reason Onset Date Comments Status Check ED visit 12/04/2024 Encounter Details Date Type Department Care Team ([facility] st Contact Info) Description 12/04/2024 Telephone [facility] MEDICINE [address] [place], [place] [phone] Jeni Garcia MD 230 [place], [place] [phone] Status Check ED visit Social History Tobacco Use Types Packs/Day Years [...] Encounter - Yvonne Robles RN - 12/04/2024 10:13 AM EST TC placed to patient [phone] in regards to below message. Patient reports she is feeling better however continues with dry cough, back pain, decreased appetite and headache. Patient denies fevers, chest pain, sore throat, vomiting and diarrhea. Patient reports she is drinking plenty of water and orange juice. Patient reports she took once ibuprofen and two tylenol last night together. Patient advised she CANNOT take medication together. Patient informed per ED note Use wfcz-uad-lpqmaah ibuprofen 600 mg taken every 6 hours with food, alternated with snkp-jbo-ppgqrtd Tylenol 1000 mg takenevery 8 hours . Patient verbalized understanding. Patient reports she was also Rx'd methocarbamol from the ED which she has completed. Patient reports the ED called her today and advised her to schedule an appointment with PCP for f/u. RN has scheduled patient for an appointment on 12/07 at 12:15 with PCP. Patient to f/u PRN. ED note placed in chart ----- Message from Jeni Garcia MD sent at 11/30/2024 2:29 PM EST ----- Patient was apparently in [place] emergency room on 11/29 with flu and probably bronchitis. Please call her on Tuesday for health status check and see if she needs additional follow-up or if she is recovering well. documented in this encounter Plan of Treatment Upcoming Encounters Date Type Department Care Team (Late st Contact Info) Description 05/28/2025 10:00 AM EDT Office Visit [facility] ADULT DENTAL [address] [place] [address] [place] documented as of this encounter Visit Diagnoses Not on filedocumented in this encounter Additional Health Concerns Assessment Noted Time PHQ-9 Depression Total Score: 0 11/16/19 10:53 AM EST documented as of this encounter Care Teams Detention Attendant Relationship Specialty Start Date End Date Jeni Garcia MD 230 [place] [address] PCP - General Family Medicine 12/16/15 documented as of this encounter
--- OUTSIDE RECORDS SUMMARY | 2024-12-07 13:16 | XMS_ITS | Encounter Summary ---
Author Organization [employer] Address [address] [facility] 7t [place] [address] Care Team Providers Care Refrigerating Engineer Name Role Phone Jeni Garcia MD Primary Care Provider + Reason for Visit * Reason Comments Med Refill Encounter Details Date Type Department Care Team (Late st Contact Info) Description 10/19/2023 Refill [facility] MEDICINE [address] [place], [place] [phone] Jayshree Andrade DO [address] [place], [place] [phone] Social History Tobacco Use Types Packs/Day Years [...] Description 05/28/2025 10:00 AM EDT Office Visit [facility] ADULT DENTAL [address] [place] [address] [place] documented as of this encounter Visit Diagnoses Not on filedocumented in this encounter Additional Health Concerns Assessment Noted Time PHQ-9 Depression Total Score: 0 11/16/19 23 10:53 AM EST documented as of this encounter Care Teams Refrigerating Engineer Relationship Specialty Start Date End Date Jeni Garcia MD [address] [place] [address] PCP - General Family Medicine 12/16/15 documented as of this encounter
--- OUTSIDE RECORDS SUMMARY | 2024-12-07 13:16 | XMS_ITS | Encounter Summary ---
Author Organization [facility] Address [address] [place] [address] Care Team Providers Care Supervisor [employer]ar [employer] Name Role Phone Jeni Garcia MD Primary Care Provider + [phone] Reason for Referral * Imaging (Routine) - Pending Review Specialty Diagnoses / Procedures Referred By Contluciano t Referred To Contact Diagnoses Localized swelling of right lower leg Procedures Vascular US duplex lower extremity venous right Kp Lyn DPM [address] [address] Phone: tel: fax: [facility] Referral ID Status Reason Start Date Expiration Date V isits Requested Visits Authorized [id number] Pending Review 11/26/2024 11/26/2025 1 1 Reason for Visit * Reason Comments Follow-up Casimiro foot pain Encounter Details Date Type Department Care Team (Late st Contact Info) Description 11/26/2024 1:30 PM EST Office Visit Orthopedic Surgery - [place] [address] [phone] Kp Lyn DPM [address] [address] Localized swelling of right lower leg (Primary [...] (1000 UT) Cap Take by mouth. Biotin [address] MCG Tab Take by mouth. famotidine (PEPCID) [...] to rule out DVT Patient sent to [facility] for ultrasound Discussed with patient ultrasound is [...] PM EDT Office Visit Orthopedic Surgery - [place] [address] [address] [facility] [address] [place] [phone] Lazaro Saleh MD [address] [facility] [address] [place] [address] documented as of this encounter Results * [...] Signed Date: 11/26/2024 16:32 ET Workstation ID: [id number] Transcribed By: Self Edit Transcribed Date: 11/26/2024 [...] Signed Date: 11/26/2024 16:32 ET Workstation ID: [id number] Transcribed By: Self Edit Transcribed Date: 11/26/2024 [...] leg documented in this encounter Care Teams Supervisor [employer]ar [employer] Relationship Specialty Start Date End Date Jeni Garcia MD [address] [place] [address] [place] [address] PCP - General 05/19/21 documented as of this encounter
--- OUTSIDE RECORDS SUMMARY | 2024-12-07 13:16 | XMS_ITS | Encounter Summary ---
Author Organization [employer] Address [address] [facility] 7t [place] [address] Care Team Providers Care Mail Superintendent Name Role Phone Jeni Garcia MD Primary Care Provider + Reason for Visit * Reason Onset Date Comments Hospital Follow-up 08/18/2023 Encounter Details Date Type Department Care Team ([facility] st Contact Info) Description 08/18/2023 Telephone [facility] MEDICINE [address] [place], [place] [phone] Jeni Garcia MD [address] [place], [place] [phone] Hospital Follow-up Social History Tobacco Use Types [...] Description 05/28/2025 10:00 AM EDT Office Visit [facility] ADULT DENTAL [address] [place] [address] [place] documented as of this encounter Visit Diagnoses Not on filedocumented in this encounter Additional Health Concerns Assessment Noted Time PHQ-9 Depression Total Score: 0 11/16/19 23 10:53 AM EST documented as of this encounter Care Teams Mail Superintendent Relationship Specialty Start Date End Date Jeni Garcia MD [address] [place] [address] PCP - General Family Medicine 12/16/15 documented as of this encounter
--- OUTSIDE RECORDS SUMMARY | 2024-12-07 13:16 | XMS_ITS | Encounter Summary ---
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) Jeni Garcia MD 230 [place] [address] Phone: tel: fax: [facility] [address] [facility] [address] [place] [address] Phone: tel: fax: Referral ID Status Reason Start Date Expiration Date V isits Requested Visits Authorized [id number] Closed Specialty Services Required 06/13/2024 06/13/2025 1 1 Encounter Details Date Type Department Care Team (Late st Contact Info) Description 06/13/2024 Orders Only [facility] MEDICINE [address] [place], [place] [phone] Jeni Garcia MD 230 [place], [place] [phone] Renal artery stenosis (CMS/HCC); Superior mesenteric artery [...] 05/28/2025 10:00 AM EDT Office Visit [facility] ADULT DENTAL [address] [place] [address] Blessing Bah Scheduled Referrals Name Type Priority [...] EDT Narrative 06/28/2024 4:28 PM EDT ? [facility] ?[address] ?[place] [address] ?XRay Report ? Signed ? Patient: Joan Armendariz R ?MR#: [id number] ?? [id number] ? : 1945 ?Acct:[id number] ? Age/Sex: 79 / F ?ADM Date: 06/28/24 ? Loc: HO.ED ? Attending Dr: ? Ordering Physician: Geovanna Austin ?? Date of Service: 06/28/24 ?? Procedure(s): XR lumbar spine 2-3V ?? Accession Number(s): [id number] ? cc: Jeni Garcia MD; Geovanna Austin [...] DD/ 1600 ? TD/TT: 06/28/24 1615 ? Dental Chair Assembler: ? Procedure Note [place], Image - 06/28/2024 [place] [address] XRay Report Signed Patient: Joan Armendariz RMR#: [id number] : 3Acct:[id number] Age/Sex: 79 / FADM Date: 06/28/24 Loc: HO.ED Attending Dr: Ordering Physician: Geovanna Austin Date of Service: 06/28/24 Procedure(s): XR lumbar spine 2-3V Accession Number(s): [id number] cc: Jeni Garcia MD; Geovanna Austin EXAMINATION: [...] 06/28/24 1625 DD/ 1600 TD/TT: 06/28/24 1615 Dental Chair Assembler: [facility] External Provider IMG XR PROCEDURES Final Result * XR Chest 1 View (06/28/2024 12:52 PM EDT) Anatomical Region Laterality Modality Chest Radiographic Tamiko ging 06/28/2024 12:5 2 PM EDT Narrative 06/28/2024 3:02 PM EDT ? [facility] ?[address] ?[place] [address] ?XRay Report ? Signed ? Patient: Armendariz,Joan R ?MR#: [id number] ?? [id number] ? : 1945 ?Acct:[id number] ? Age/Sex: 79 / F ?ADM Date: 09/12/24 ? Loc: HO.ED ? Attending Dr: ? Ordering Physician: Geovanna Austin ?? Date of Service: 06/28/24 ?? Procedure(s): XR chest 1V ?? Accession Number(s): [id number] ? cc: Jeni Garcia MD; Geovanna Austin [...] DD/ 1252 ? TD/TT: 06/28/24 1259 ? Dental Chair Assembler: RK ? Procedure Note [place], Image - 06/28/2024 [place] [address] XRay Report Signed Patient: Joan Armendariz RMR#: [id number] : 3Acct:[id number] Age/Sex: 79 / FADM Date: 06/28/24 Loc: HO.ED Attending Dr: Ordering Physician: Geovanna Austin Date of Service: 06/28/24 Procedure(s): XR chest 1V Accession Number(s): [id number] cc: Jeni Garcia MD; Geovanna Austin EXAMINATION: [...] 06/28/24 1459 DD/ 1252 TD/TT: 06/28/24 1259 Dental Chair Assembler: BETH [facility] External Provider IMG XR PROCEDURES Final Result [...] documented as of this encounter Care Teams Construction Or Leak Gang Laborer Relationship Specialty Start Date End Date Jeni Garcia MD [address] [place] [address] PCP - General Family Medicine 12/16/15 documented as of this encounter
--- OUTSIDE RECORDS SUMMARY | 2024-12-07 13:16 | XMS_ITS ---
Author Name Sveta Calderon NP Address [address] [place] [address] Phone [phone] [facility] Care Team Providers Care Military Source Operations Specialist Name Role Phone Sveta Calderon Unavailable [phone] Unavailable Unavailable Unavailable Unavailable Unavailable Unavailable Reason [...] mg Tab TAKE 1 TABLET BY [facility] EVERY 8 HOURS NEEDED FOR MILD PAIN [...] calculi Resolved 2022-12-02 Other problems related to [facility] facilities and other health care Active 2023-11-25 N/A Glaucoma Active 2022-11-05 N/A Cataracts, bilateral Active 2022-11-05 N/A Arthritis of left upper arm Active 2022-12-02 N/A Atherosclerosis of renal art celine, 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 extremities with intermittent claudication, bilateral [...] (do not use for phone, instead use 34256-63) [facility] Rheumatoid polyneurop w rheumatoid arthritis of unsp siteAtherosclerosis of renal arteryAthscl [place] arteries of extrm w intrmt nilesh, bi legsPersonal history of urinary calculi New patient,40-59min; chronic exacerbation, 2 stable chronic or 1 acute illness add add modifier 95 for video (do not use for phone, instead use 98808-21) [facility] New patient,40-59min; chronic exacerbation, 2 stable chronic or 1 acute illness add add modifier 95 for video (do not use for phone, instead use 04746-73) [facility] ([place]) 11/05/2022 New patient,40-59min; chronic exacerbation, 2 stable chronic or 1 acute illness add add modifier 95 for video (do not use for phone, instead use 86886-67) [facility] New patient,40-59min; chronic exacerbation, 2 stable chronic or 1 acute illness add add modifier 95 for video (do not use for phone, instead use 36781-03) [facility] New patient,40-59min; chronic exacerbation, 2 stable chronic or 1 acute illness add add modifier 95 for video (do not use for phone, instead use 33242-84) [facility]20[place] No Data Available [facility]2022 Primary osteoarthritis, left elbowPersonal history of urinary calculi No Data Available [facility]2022 No Data Available [facility]2022 No Data Available [facility] 01/25/2023 Shortness of breathCough, unspecified Estab. patient 20-29min; 1 stable chronic or 2 minor; add add modifier 95 for video, modifier 93 for phone [facility] 07/25/2023 Rheumatoid polyneurop w rheumatoid arthritis of unsp siteAtherosclerosis of renal arteryAthscl [place] arteries of extrm w intrmt nilesh, bi legsPersonal history of urinary calculiAcquired absence of other specified parts of digestive tractUnspecified asthma, uncomplicatedUnspecified glaucomaUnspecified cataractImmunodeficiency due to drugsOther long-term (current) drug therapyChronic obstructive pulmonary disease, unspecifiedObesity, unspecifiedBody mass index (BMI) 35.0-35.9, adultPrimary osteoarthritis, left elbowShortness of breathCough, unspecified Estab. patient 20-29min; 1 stable chronic or 2 minor; add add modifier 95 for video, modifier 93 for phone [facility] 07[place] Estab. patient 20-29min; 1 stable chronic or 2 minor; add add modifier 95 for video, modifier [address] [facility] Estab. patient 20-29min; 1 stable chronic or 2 minor; add add modifier 95 for video, modifier [address] [facility] 07/[place]/2023 Estab. patient 20-29min; 1 stable chronic or 2 minor; add add modifier 95 for video, modifier 93 for phone [facility] 07/[place]/2023 Estab. patient 20-29min; 1 stable chronic or 2 minor; add add modifier 95 for video, modifier [address] [facility] 07/[place]2023 No Data Available [facility] 09[place]2023 Chronic obstructive pulmonar y disease, unspecifiedRheumatoid polyneurop w rheumatoid arthritis of unsp siteAtherosclerosis of renal arteryAthscl [place] arteries of extrm w intrmt nilesh, bi legsImmunodeficiency due to drugsPersonal history of urinary calculiAcquired absence of other specified parts of digestive tractUnspecified asthma, uncomplicatedUnspecified glaucomaUnspecified cataractOther watermelon inspector (current) drug therapyObesity, unspecifiedBody mass index (bmi) 34.0-34.9, adultPrimary osteoarthritis, left elbowShortness of breathCough, unspecifiedCellulitis, unspecified No Data Available [facility] 09/[place]2023 No Data Available [facility]2023 No Data Available [facility] 09/[place]/2023 RN, CN or CP time with patient by phone; use with 1111F, BP, A1c or other CPTII codes [facility], ([place]) 09/26/2023 Encounter for other specifie d aftercare RN, CN or CP time with patient by phone; use with 1111F, BP, A1c or other CPTII codes [facility] ([place] 09/26/2023 Estab. patient 30-39min; chronic exacerbation, 2 stable chronic or 1 acute illness add add modifier 95 for video, (do not use for phone, instead use 13391-63) [facility] 11/25/2023 Rheumatoid polyneurop w rheumatoid arthritis of unsp siteAtherosclerosis of renal arteryAthscl [place] arteries of extrm w intrmt nilesh, bi legsUnspecified glaucomaUnspecified cataractImmunodeficiency due to drugsOther long-term (current) drug therapyChronic obstructive pulmonary disease, unspecifiedObesity, unspecifiedPrimary osteoarthritis, left elbowOther problems related to medical facilities and other health careAthscl heart disease of [place] cor art w unstable ang pctrsPeripheral vascular disease, unspecifiedDermatitis, unspecifiedType 2 diabetes mellitus with other specified complicationMixed hyperlipidemia Estab. patient 30-39min; chronic exacerbation, 2 stable chronic or 1 acute illness add add modifier 95 for video, (do not use for phone, instead use 83765-42) [facility] Estab. patient 30-39min; chronic exacerbation, 2 stable chronic or 1 acute illness add add modifier 95 for video, (do not use for phone, instead use 09444-37) [facility] 11[place]2023 Estab. patient 30-39min; chronic exacerbation, 2 stable chronic or 1 acute illness add add modifier 95 for video, (do not use for phone, instead use 39830-40) [facility]23 Estab. patient 30-39min; chronic exacerbation, 2 stable chronic or 1 acute illness add add modifier 95 for video, (do not use for phone, instead use 17662-16) [facility]20[place] Estab. patient 30-39min; chronic exacerbation, 2 stable chronic or 1 acute illness add add modifier 95 for video, (do not use for phone, instead use 98812-50) [facility]2023 Estab. patient 30-39min; chronic exacerbation, 2 stable chronic or 1 acute illness add add modifier 95 for video, (do not use for phone, instead use 04781-21) [facility] Estab. patient 30-39min; chronic exacerbation, 2 stable chronic or 1 acute illness add add modifier 95 for video, (do not use for phone, instead use 28910-58) [facility] 11[place]2023 Estab. patient 30-39min; chronic exacerbation, 2 stable chronic or 1 acute illness add add modifier 95 for video, (do not use for phone, instead use 48413-70) [facility] 11[place]2023 Estab. patient 30-39min; chronic exacerbation, 2 stable chronic or 1 acute illness add add modifier 95 for video, (do not use for phone, instead use 89987-27) [facility] 11[place]2023 Estab. patient 30-39min; chronic exacerbation, 2 stable chronic or 1 acute illness add add modifier 95 for video, (do not use for phone, instead use 71689-14) [facility] 11/[place]2023 Vital Signs Date of Collection Vitals [...] tive Time Current Smoking Status Former smoker 2024-11-18 1 Sex Female History of Procedures Procedures Service Procedure code Service date Servicing provider Phone# New patient,40-59min; chronic exacerbation, 2 stable chronic or 1 acute illness add add modifier 95 for video (do not use for phone, instead use 30199-83) 18150 2022-11-05 No Data Available No Data Availa [...] le No Data Available No Data Available 32086 2022-12-02 No Data Available No Data Available Medication List Documented (1159F) 1159F 2022-12-02 No Data Available No Data Lucretia ilable Pain Assessment - Pain Documented on a Pain Scale (1125F) 1125F 2022-12-02 No Data Available No Data Lucretia ilable No Data Available [id number] 2023-01-25 No Data Available No Data Available Estab. patient 20-29min; 1 stable chronic or 2 minor; add add modifier 95 for video, modifier 93 for phone 89242 2023-07-25 No Data Available No Data Availa [...] le No Data Available No Data Available 39068 2023-09-30 No Data Available No Data Available [...] 1111F, BP, A1c or other CPTII codes 76204 2023-09-26 No Data Available No Data Avai lable Medications prescribed in hospital were reviewed and reconciled against what they were taking prior to admission during today's visit. (1111F) 1111F 2023-09-26 No Data Available No Data Availa ble Estab. patient 30-39min; chronic exacerbation, 2 stable chronic or 1 acute illness add add modifier 95 for video, (do not use for phone, instead use 58434-36) 88755 2023-11-25 No Data Available No Data Availa [...] unspecified siteAtherosclerosis of renal artery, 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 extremities with intermittent claudication, bilateral legsHx of renal calculi 2022-12-02 12:17:08 Arthritis of left up per armHx of renal calculi 2023-01-25 09:24:51 Follow up plan for a cute symptoms: F/U PCPShortness of breath with cough 2023-07-25 08:46:34 <Fully document all Diagnosis>Rheumatoid polyneuropathy with rheumatoid arthritis of unspecified siteAtherosclerosis of renal artery, 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 extremities with intermittent claudication, bilateral legsHx of renal calculiHx of cholecystectomyAsthmaGlaucomaCataracts, bilateralImmunodeficiency due to drugsChronic obstructive pulmonary disease, unspecifiedObesity (BMI 30.0-34.9)Arthritis of left upper armHx of renal calculiShortness of breath with cough 2023-09-30 07:29:04 Rheumatoid polyneuro gregor with rheumatoid arthritis of unspecified siteAtherosclerosis of renal artery, 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 extremities with intermittent claudication, bilateral legsHx of renal calculiHx of cholecystectomyAsthmaGlaucomaCataracts, bilateralImmunodeficiency due to drugsChronic obstructive pulmonary disease, unspecifiedObesity (BMI 30.0-34.9)Arthritis of left upper armHx of renal calculiShortness of breath with coughCellulitis 2023-11-25 11:48:09 Other problems relat ed to medical facilities and other health careRheumatoid polyneuropathy with rheumatoid arthritis of unspecified siteAtherosclerosis of renal artery, 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 extremities with intermittent claudication, bilateral legsGlaucomaCataracts, bilateralImmunodeficiency due to drugsChronic obstructive pulmonary disease, unspecifiedObesity (BMI 30.0-34.9)Arthritis of left upper armOther problems related to medical facilities and other health careAtherosclerosis of renal artery, 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 extremities with intermittent claudication, bilateral [...] foodActivity as toleratedRecently passed a kidney stone, 11/0397Prwqzpad8/24/2022tableAdvair,Albuterol PRN,Montelukast.ophtho consult coing up in Januaryophtho consult [...] visit. (1111F)Continue to see PCP. [facility] or disease education needs that may arise 09/05.Methotrexare, taking fewer (6) tabs than prescribed (8), concerned about AE .Advised to tlk to rheumatology about it.Not on a statin - will investigateEncouraged to lose weightEast high fiber foodActivity as toleratedRecently passed a kidney stone, 11/0307Zluxbpoi3/24/2022tableAdvair,Albuterol PRN,Montelukast.ophtho consult coing up in Januaryophtho consult [...] joint pain increased [facility]. [facility] with [facility] as needed for any acute or [...] smoking.keep skin hydrated triamcinolone PRN Eosinophil count [id number] 08/19/23not on any medication Advised to eat [...]
--- OUTSIDE RECORDS SUMMARY | 2024-12-07 13:16 | XMS_ITS | Encounter Summary ---
Author Organization [facility] Address [address] [place] [address] Care Team Providers Care Grinder And Honer Operator Automatic Name Role Phone Jeni Garcia MD Primary Care Provider + [phone] Reason for Visit * Reason Comments Results EGD Encounter Details Date Type Department Care Team (Latest Contact Info) Description 11/14/2024 1:40 PM EST Office Visit Gastroenterology - [address] [facility] [address] [place] [address] [phone] Jing Fields, CUSTOMER SERVICE ASSOCIATE [address] [place] [id number] Gastroesophageal reflux disease, unspecified whether esophagitis present [...] this encounter Progress Notes * Jing Fields, CUSTOMER SERVICE ASSOCIATE - 11/14/2024 1:40 PM EST CHIEF [...] in the patient's care. Board Certified Gastroenterology [facility] Medical [facility] W [phone] [place] [phone] [email or web address] Jing Fields NP documented in this encounter Plan of Treatment Upcoming Encounters Date Type Department Care Team (Late st Contact Info) Description 01/02/2025 2:30 PM EDT Office Visit Orthopedic Surgery - [place] [id number] [phone] Lazaro Saleh MD [address] [address] documented as of this encounter Visit Diagnoses Diagnosis Gastroesophageal reflux disease, unspecified whether esophagitis present- Primary documented in this encounter Care Teams Grinder And Honer Operator Automatic Relationship Specialty Start Date End Date Jeni Garcia MD [address] [phone] PCP - General 05/19/21 documented as of this encounter
--- OUTSIDE RECORDS SUMMARY | 2024-12-07 13:16 | XMS_ITS | Encounter Summary ---
Author Organization [employer] [facility] Address [address] [facility] [facility] [address] [place] [address] Care Team Providers Care Operator Maintainer Name Role Phone Jeni Garcia MD Primary Care Provider + Reason for Visit * Reason Onset Date Comments C Pap 02/22/2023 Encounter Details Date Type Department Care Team ([facility] st Contact Info) Description 02/22/2023 Telephone [facility] MEDICINE [address] [place], [place] [phone] Jeni Garcia MD [address] [place], [place] [phone] C Pap Social History Tobacco Use Types [...] If any questions please contact pt at [phone] (kinyarwanda speaking) * Telephone Encounter - Temi Bojorquez - 02/22/2023 2:44 PM EDT Tc from Pt requesting a script for Cpap Machine talk on appt on 02/15 with provider. Pt give fax number to send script to [facility] # [phone]. PCP Dr. Garcia documented in this encounter Plan of Treatment Upcoming Encounters Date Type Department Care Team (Late st Contact Info) Description 05/28/2025 10:00 AM EDT Office Visit [facility] ADULT DENTAL [address] [place] [address] [place] documented as of this encounter Visit Diagnoses Not on filedocumented in this encounter Additional Health Concerns Assessment Noted Time PHQ-9 Depression Total Score: 0 11/16/19 10:53 AM EST documented as of this encounter Care Teams Operator Maintainer Relationship Specialty Start Date End Date Jeni Garcia MD [address] [place] [address] PCP - General Family Medicine 12/16/15 documented as of this encounter
--- OUTSIDE RECORDS SUMMARY | 2024-12-07 13:16 | XMS_ITS | Encounter Summary ---
Author Organization [employer] Address [address] [facility] [address] [place] [address] Care Team Providers Care Smoking Pipe Driller And Threader Name Role Phone Jeni Garcia MD Primary Care Provider + Reason for Visit * Reason Comments ER Follow-up Encounter Details Date Type Department Care Team (Latest Contact Info) Description 12/07/2024 12:15 PM EST Office Visit [facility] MEDICINE [address] [place], [place] [phone] Jeni Garcia MD [address] [place], [place] [phone] Influenza A (Primary Dx); Bronchitis; Pulmonary emphysema, unspecified emphysema type (CMS/HCC); Degeneration of intervertebral disc of lumbar region with discogenic back pain Social History Tobacco Use Types Packs/Day Years [...] Sign Reading Time Taken Comments Blood Pressure 168/69 12/07/2024 11:53 AM EST Pulse 72 12/07/2024 11:53 AM EST Temperature 35.4 ??C (95.8 ??F) 12/07/2024 11:[address] Respiratory Rate 28 12/07/2024 11:53 AM EST Oxygen Saturation 100% 12/07/2024 11:53 AM EST Inhaled Oxygen Concentration - - Weight 79.2 kg (174 lb 8 oz) 12/07/2024 11:53 AM EST Height 149.9 cm (4' 11 ) 12/07/2024 11:53 AM EST Body Mass Index 35.24 12/07/2024 11:53 AM EST documented in this encounter Miscellaneous Notes * Assessment & Plan Note - Nancy Thorpe MA - 12/07/2024 1:10 PM EST Associated Problem(s): Influenza A Possible complication of Bronchitis, ordered chest X-ray. Continue Tylenol alternating with Ibuprofen. Encouraged fluids po and rest. Advised to go to the ED if symptoms do not improve within 24 hrs of starting treatment. documented in this encounter Plan of Treatment Upcoming Encounters Date Type Department Care Team (Late st Contact Info) Description 05/28/2025 10:00 AM EDT Office Visit [facility] ADULT DENTAL [address] [place] [address] Blessing Bah Scheduled Orders Name Type Priority Associated Diagnoses Orde r Schedule XR Chest 2 Views Imaging Routine Influenza A Bronchitis Ordered: 12/07/2024 documented as of this encounter Visit Diagnoses Diagnosis Influenza A- Primary Influenza with other respiratory manifestations Bronchitis Bronchitis, not specified as acute or chronic Pulmonary emphysema, unspecified emphysema type ([facility]) Degeneration of intervertebral disc of lumbar region with discogenic back pain documented in this encounter Additional Health Concerns Assessment Noted Time PHQ-9 Depression Total Score: 0 11/16/19 23 10:53 AM EST documented as of this encounter Care Teams Smoking Pipe Driller And Threader Relationship Specialty Start Date End Date Jeni Garcia MD [address] [place] [address] PCP - General Family Medicine 12/16/15 documented as of this encounter
--- OUTSIDE RECORDS SUMMARY | 2024-12-07 13:17 | XMS_ITS | Clinical Summary ---
Author Organization [employer] Address [address] [facility] 7[address] [place] [address] Care Team Providers Care Photo Editor Name Role Phone Jeni Garcia MD Primary Care Provider + Allergies Active Allergy Reactions Criticality Noted Date Comments Acetaminophen Hives 09/04/2013 Codeine Anaphylaxis,Dizziness,Rash High 3 Hydrocodone Itching 10/09/2014 Morphine Dizziness,Hallucinations Low 10/26/2012 Oxycodone Hives Low 09/04/2013 Oxycodone-Acetaminophen Rash Low 09/03/2021 Tramadol Headache High 06/28/2024 Medications acetaminophen (Tylenol) 325 MG tablet Take by mouth every 6 (six) hours if needed for mild pain 015 Active docusate sodium (Colace) 100 MG capsule TAKE 1 CAPSULE BY MOUTH TWICE A DAY 022 Active folic acid (Folvite) 1 MG tablet TAKE 1 TABLET BY MOUTH EVERY DAY 022 Active methotrexate 2.5 MG tablet TAKE 8 TABLETS ONCE WEEKLY ON Mondays 022 Active montelukast (Singulair) 10 MG tablet TAKE 1 TABLET BY MOUTH EVERY EVENING 022 Active Spiriva Respimat 1.25 MCG/ACT inhaler INHALE 2 PUFFS BY MOUTH EVERY DAY 022 Active albuterol 108 (90 Base) MCG/ACT inhaler Inhale 2 puffs every 4 (four) hours if needed for wheezing or shortness of breath. 18 g 2 023 Active Advair HFA 115-21 MCG/ACT inhaler INHALE 2 PUFF EVERY 12 HOURS FOR 30 DAYS 023 Active carvedilol (Coreg) 6.25 MG tabletIndications :Primary hypertension Take 1 tablet (6.25 mg) by mouth with breakfast and with evening meal. 60 tablet 11 024 2024 Active loratadine (Claritin) 10 MG tablet TAKE 1 TABLET BY MOUTH EVERY DAY IN THE MORNING 90 tablet 1 024 Active losartan (Cozaar) 100 MG tabletIndications :Primary hypertension TAKE 1 TABLET BY MOUTH EVERY DAY IN THE MORNING 90 tablet 1 024 Active gabapentin (Neurontin) 100 MG capsuleIndication s:Degeneration of lumbar intervertebral disc,Meralgia paresthetica of right side TAKE 1 CAPSULE BY MOUTH THREE TIMES A DAY 90 capsule 024 Active betamethasone valerate (Valisone) 0.1 % cream APPLY TOPICALLY TWICE A DAY 30 g 1 024 Active levothyroxine (Synthroid, Levoxyl) 50 MCG tabletIndications :Acquired hypothyroidism TAKE 1 TABLET BY MOUTH EVERY DAY IN THE MORNING 90 tablet 1 025 Active omeprazole (PriLOSEC) [address] capsuleIndication s:Gastroesophagea l reflux disease, unspecified whether esophagitis present TAKE 1 CAPSULE BY MOUTH TWICE A DAY 180 capsule 1 025 Active fluticasone (Flonase) 50 MCG/ACT nasal spray Administer 1 spray into each nostril 2 times daily for 14 days. Shake gently. Before first use, prime pump. After use, clean tip and replace cap. 16 mL 025 2024 Active albuterol 1.25 MG/3ML nebulizer solution Take 3 mL (1.25 mg) by nebulization every 6 (six) hours if needed for wheezing. 75 mL 3 025 2025 Active azithromycin (Zithromax) 250 MG tablet Take 2 tabs PO daily x 1d then 1 tab PO daily on D2 to D5 6 tablet 025 Active methylPREDNISolon e (Medrol Dospak) 4 MG tablets Follow schedule on package instructions 21 tablet 025 2024 Active fluticasone (Flonase) 50 MCG/ACT nasal spray SPRAY 2 SPRAYS INTO EACH NOSTRIL IN THE MORNING SHAKE GENTLY/PRIME BEFORE 1ST USE&CLEAN TIP 48 mL 024 2024 Discontinued(R eorder (will not trigger notification to Pharmacy)) Active Problems Problem Noted Date Diagnosed Date Influenza A 12/07/2024 Assessment & Plan (12/07/2024 1:10 PM EST): Possible complication of Bronchitis, ordered chest X-ray. Continue Tylenol alternating with Ibuprofen. Encouraged fluids po and rest. Advised to go to the ED if symptoms do not improve within 24 hrs of starting treatment. Bronchitis 12/07/2024 Stage 3a chronic kidney disease 12/07/2024 Dental plaque 11/13/2024 Normal oral exam 11/13/2024 [...] exercise, life style modifications, diet, referral to timber management specialist. Discussed re lower calorie intake, increase [...] Encounters Date Type Department Care Team Description 12/07/2024 12:15 PM EST Office Visit [facility] [address] [place] [phone] Jeni Garcia MD Influenza A (Primary Dx); Bronchitis; Pulmonary emphysema, unspecified emphysema type (CMS/HCC); Degeneration of intervertebral disc of lumbar region with discogenic back pain 12/07/2024 Travel 12/05/2024 Telephone [facility] [address] [place] [phone] Jeni Garcia MD Chart prep 12/04/[address] [phone] Jeni Garcia MD Status Check ED visit 12/04/[address] [address] Jeni Garcia MD ER Follow-up 11/29/2024 Orders Only GENERIC EXTERNAL DATA DEPARTMENT Provider, Generic External Data 11/28/[address] [address] Jeni Garcia MD Nurse Triage 11/13/2024 1:00 PM EST Office Visit [facility] [address] [place] [phone] [place] Dental calculus (Primary Dx); Dental plaque; Normal oral exam 11/13/[address] [address] Jeni Garcia MD DCF Form (I called [...] to call the forms department at ext [phone].) 11/01/2024 Orders Only [facility] External Provider, [facility] 11/01/2024 Refill [facility] [address] [place] [address] [phone] Jeni Garcia MD Acquired hypothyroidism; Gastroesophageal reflux disease, unspecified whether esophagitis present from Last 3 Months Immunizations Name Administration [...] Mass Index 35.24 12/07/2024 11:53 AM EST Plan of Treatment Upcoming Encounters Date Type Department Care Team (Late st Contact Info) Description 05/28/2025 10:00 AM EDT Office Visit [facility] [address] [place] [phone] [place] Health Maintenance Due Date Last Done Comments Alcohol/Substance Use Screening 1957 Zoster Vaccines (2 of 3) 03/19/2015 01/22/2015 RSV Patients and Patients Aged 60 years or older (1 - 1-dose 75+ series) 2018 COVID-19 Vaccine ( season) 2024 09/23/2021, 12/30/2020, 12/02/2020 Influenza Vaccine (#1) 2024 4, 07/22/2022, 09/23/2021, Additional history exists Diabetes: Hemoglobin A1C 08/19/2024 023, 05/31/2022, 03/19/2022, Additional history exists Depression Screening 12/12/2024 12/12/2023, 11/16/19 23 SDOH Screening 12/12/2024 12/12/2023 Mammogram 01/03/2025 01/04/2024, 12/15, 12/29/2022, Additional history exists Dental Oral Exam 05/14/2025 11/13/2024, 05/2024, 11/11/2022 Dental Prophylaxis 05/14/2025 11/13/2024, 0 05/24/2024, 11/11/2022 Dental X-Ray: Bitewings 05/25/2025 05/24/2024, 11/11 Tobacco Screening 12/07/2025 12/07/2024 Dental X-Ray: Full Mouth 05/25/2027 05/24/2024 Lipid Panel 02/16/2028 02/15/2023, 06/12/2021, 01/28/2021 DTaP/Tdap/Td Vaccines (3 - Td or [...] TROPONIN I Routine 11/29/2024 7:06 PM EST COMPREHENSIVE METABOLIC PANEL Routine 11/29/2024 7:06 PM EST PROTHROMBIN TIME-INR Routine 11/29/2024 7:06 PM EST CBC WITH AUTO DIFFERENTIAL Routine 11/29/2024 7:06 PM EST PERIODIC ORAL EVALUATION - ESTABLISHED PATIENT Routine 11/13/2024 1:00 PM EST ORAL HYGIENE INSTRUCTIONS Routine 11/13/2024 1:00 PM EST Dental calculus Dental plaque CASE PRESENTATION, DETAILED AND EXTENSIVE TREATMENT PLANNING Routine 11/13/2024 1:00 PM EST PROPHYLAXIS - ADULT Routine 11/13/2024 1 :00 PM EST Dental calculus Dental plaque FL GUIDANCE IN TREATMENT ROOM Routine 11/01/2024 12:48 PM EST INTRAORAL - COMPLETE SERIES OF RADIOGRAPHIC IMAGES Routine 05/24/2024 3:00 PM EDT BI MAMMOGRAM SCREENING TOMOSYNTHESIS BILATERAL Routine 01/04/2024 12:30 PM EDT POCT GLYCATED HEMOGLOBIN, TOTAL Routine 08/19/2023 1:08 PM EDT Prediabetes LIPID PANEL WITH REFLEX TO DIRECT LDL Routine 02/15/2023 11:09 AM EDT Primary hypertension from Last 3 Months or Most Recently Relevant to Health Maintenance Results * XR Chest 2 Views (11/29/2024 7:59 PM EST) Anatomical Region Laterality Modality Chest Radiographic Tamiko ging 11/29/2024 7:59 PM EST Narrative 11/29/2024 8:00 PM EST ? [facility] ?[address] ?[place] [address] ?XRay Report ? Signed ? Patient: Armendariz,Joan R ?MR#: [id number] ?? 594 ? : 1945 ?Acct:[id number] ? Age/Sex: 79 / F ?ADM Date: 02/13/25 ? Loc: HO.ED ? Attending Dr: ? Ordering Physician: My Forrest NP ?? Date of Service: 11/29/24 ?? Procedure(s): XR chest 2V ?? Accession Number(s): [id number] ? cc: Jeni Garcia MD; My Forrest NP ? CLINICAL HISTORY: cough, chest pain ? 2 views chest ? Comparison: CR/LA/SR - XR CHEST 1V - 06/28/24 12:50 [...] ? DD/ 58 ? TD/TT: 11/29/241958 ? Relationship Assoc: ? Procedure Note [facility], Image - 11/29/2024 [place] [address] XRay Report Signed Patient: Joan Armendariz RMR#: [id number] 594 : 3Acct:[id number] Age/Sex: 79 / FADM Date: 11/29/24 Loc: HO.ED Attending Dr: Ordering Physician: My Forrest NP Date of Service: 11/29/24 Procedure(s): XR chest 2V Accession Number(s): [id number] cc: Jeni Garcia MD; My Forrest NP CLINICAL HISTORY: cough, chest pain 2 views chest Comparison: CR/LA/SR - XR CHEST 1V - 06/28/24 12:50 [...] in OV> 11/29/241958 DD/ 58 TD/TT: 11/29/241958 Relationship Assoc: [facility] External Provider IMG XR PROCEDURES Edited Result - Final * (ABNORMAL) SARS-CoV-2 RNA, Influenza A/B, and RSV RNA, Ql NAAT (11/29/2024 7:15 PM EST) Pathologist [facility] Influenza A PCR POSITIVE(A) Negative [facility] Influenza B PCR NEGATIVE Negative [facility] Resp Syncy Virus RNA Qual PCR NEGATIVE Negative [facility] SARS COV2 PCR NEGATIVE Negative [facility] Comment:All test results mus t [...] use by authorized laboratories.Testing performed on the [employer] GeneXpert utilizingreal-time RT-PCR.All SARS CoV2 and positive influenza A/B results arereported to [facility]. 11/29/2024 7:15 PM EST 11/29/2024 7:17 PM EST us Generic External Data Provider LAB MICROBIOLOGY - GENERAL ORDERABLES Final Result [facility] [address] [place] [phone] * High Sensitivity Troponin I (11/29/2024 7:06 PM EST) Pathologist [facility] TROPONIN I HIGH SENSITIVITY 4.3 <3.5 - 17.0 ng/L [facility] Comment:The [place] high sens itivity Troponin-I results should beused in conjunction with other diagnostic information suchas ECG, clinical observations and information, and patientsymptoms to aid in the diagnosis of [place]. 11/29/2024 7:06 PM EST 11/29/2024 7:10 PM EST us Generic External Data Provider LAB BLOOD ORDERAB LES Final Result [facility] [address] [place] [address] [phone] * (ABNORMAL) CBC auto differential (11/29/2024 7:06 PM EST) White Blood Count 6.9 4.8 - 10.8 X10*3/uL [facility] Red Blood Count 4.37 4.20 - 5.50 X10*6/uL [facility] Hemoglobin 11.8(L) 12.0 - 16.0 g/dl [facility] Hematocrit 37.2 37.0 - 47.0 % [facility] Mean Corpuscular Volume 85.1 80.0 - 98.0 fL [facility] Mean Corpuscular Hemoglobin 27.0 27.0 - 33.0 pg [facility] Mean Corpuscular HGB Conc 31.7 31.0 - 35.0 g/dl [facility] Red Cell Distribution Width 15.8 11.0 - 16.0 % [facility] Platelet Count 177 160 - 400 X10*3/uL [facility] Mean Platelet Volume 11.6 9.4 - 12.3 fL [facility] Neutrophils Percent Auto 72.5 45 - 73 % [facility] Imm Gran Pct Auto 0.6(H) 0.0 - 0.4 % [facility] Lymphocytes Percent Auto 11.7(L) 20 - 40 % [facility] Monocytes Percent Auto 9.9 2 - 11 % [facility] Eosinophils Percent Auto 3.9 0 - 4 % [facility] Basophils Percent Auto 1.4 0 - 2 % [facility] NRBC Pct Auto 0.0 0.0 - 0.2 /100WBC [facility] Neutrophils Absolute Auto 5.0 2.0 - 8.3 x10*3/uL [facility] Imm Gran Abs Auto 0.04(H) 0.00 - 0.03 X10*3/uL [facility] Lymphocytes Absolute Auto 0.8(L) 1.2 - 4.9 X10*3/uL [facility] Monocytes Absolute Auto 0.7 0.1 - 1.2 X10*3/uL [facility] Eosinophils Absolute Auto 0.3 0.0 - 0.4 X10*3/uL [facility] Basophils Absolute Auto 0.1 0.0 - 0.2 X10*3/uL [facility] NRBC Abs Auto 0.000 0.0 - 0.012 X10*3/uL [facility] 11/29/2024 7:06 PM EST 11/29/2024 7:10 PM EST us Generic External Data Provider LAB BLOOD ORDERAB LES Final Result Performing Organization Address City/State/[facility] Co de Phone Number [facility] [address] [place] [phone] * (ABNORMAL) Prothrombin Time-INR (11/29/2024 7:06 PM EST) Prothrombin Time 12.6(H) 10.9 - 12.4 SEC [facility] INTERNATIONAL NORM RATIO 1.1 0.9 - 1.1 [facility] Comment:INTERNATIONAL NORMAL IZED RATIO (INR) [...] Provider LAB BLOOD ORDERAB LES Final Result [facility] [address] [place] [address] [phone] * (ABNORMAL) Comprehensive Metabolic Panel (11/29/2024 7:06 PM EST) Sodium 137 135 - 145 mmol/L [facility] Potassium 4.0 3.3 - 5.1 mmol/L [facility] Chloride 106 96 - 108 mmol/L [facility] Carbon Dioxide 23 22 - 29 mmol/L [facility] Anion Gap 12 12 - 20 [facility] Urea Nitrogen (BUN) 11 9 - 16 mg/dL [facility] Creatinine, Serum 1.02 0.5 - 1.4 mg/dL [facility] Creatinine Clr Calc Pharmacy 38.3 [facility] Comment:Provided height and weight: 147.32 cm,78.8 kg.eGFR (calculated from the MDRD study equation) and eCrCl(calculated from the Cockcroft-Gault equation) are based ondifferent parameters and may not yield comparable results.If eCrCl result is absurd, please check patient'sheight/weight. Estimated Glomerular Filt Rate 52 [facility] Comment:Chronic Kidney Disea se: Estimated GFR < 60 mL/min/1.34o4Wmqfds Kidney Disease: Estimated GFR < 15 mL/min/1.73m2 Glucose 109 60 - 115 mg/dL [facility] Calcium 8.9 8.4 - 10.2 mg/dL [facility] Bilirubin, Total 0.3 0.0 - 1.0 mg/dL [facility] Aspartate Amino Transferase 35(H) 5 - 31 U/L [facility] Alanine Aminotransferase 24 0 - 31 U/L [facility] Total Protein 8.0 6.5 - 8.0 g/dL [facility] Albumin Level 3.8 3.5 - 5.0 g/dL [facility] Alkaline Phosphatase 64 39 - 117 U/L [facility] 11/29/2024 7:06 PM EST 11/29/2024 7:10 PM EST us Generic External Data Provider LAB BLOOD ORDERAB LES Final Result [facility] [address] [place] [address] [phone] * FL Guidance in Treatment Room (11/01/2024 12:48 PM EST) Anatomical Region Laterality Modality X-Ray Angiograph y 11/01/2024 12:4 8 PM EST Narrative 11/02/2024 1:50 PM EST ? [facility] ?[address] ?[place] [address] ? Fluoroscopy Report ? Signed ? Patient: Marcello,Joan R ?MR#: [id number] ?? 594 ? : 1945 ?Acct:[id number] ? Age/Sex: 79 / F ?ADM Date: 11/01/24 ? Loc: CF ? Attending Dr: Danis Diamond MD ? Ordering Physician: Nohemy Matthew APRN, CNP ?? Date of Service: 11/01/24 ?? Procedure(s): FL guidance in treatment room ?? Accession Number(s): [id number] ? cc: Jeni Garcia MD; Nohemy Matthew APRN, CNP ? EXAMINATION: ??FL GUIDANCE ONLY ? HISTORY: [...] DD/ 1248 ? TD/TT: 11/01/24 1259 ? Relationship Assoc: ? Procedure Note Donotsupainterpreter, Image - 11/02/[address] [address] Fluoroscopy Report Signed Patient: Joan Armendariz RMR#: [id number] 594 : 3Acct:[id number] Age/Sex: 79 / FADM Date: 11/01/24 Loc: CF Attending Dr: Danis Diamond MD Ordering Physician: Nohemy Matthew APRN, CNP Date of Service: 11/01/24 Procedure(s): FL guidance in treatment room Accession Number(s): [id number] cc: Jeni Garcia MD; Nohemy Matthew APRN, [...] 11/02/24 1347 DD/ 1248 TD/TT: 11/01/24 1259 Relationship Assoc: [facility] External Provider IMG IR PROCEDURES Edited Result - Final * BI Mammogram Screening Tomosynthesis Bilateral (01/04/2024 12:30 PM EDT) Anatomical Region Laterality Modality Breast Bilateral Mammography 01/04/2024 12:3 0 PM EDT Narrative 01/25/2024 12:29 AM EDT ? [place] [facility] ? [address] ?[place] [address] ? Mammography Report ? Signed ? Patient: Armendariz,Joan R ?MR#: [id number] ?? 594 ? : 1945 ?Acct:[id number] ? Age/Sex: 78 / F ?ADM Date: 01/04/24 ? Loc: HO.MAMMO ? Attending Dr: Jeni Garcia MD ? Ordering Physician: Jeni Garcia MD ?Results: 1Ne ?? gative ? Date of Service: 01/04/24 ?Follow Up: 1 Year From Orig ?? inal Mammogram ? Procedure(s): MM tomosynthesis screening BI ?? Accession Number(s): [id number] ? cc: Jeni Garcia MD ? EXAMINATION: [...] by Marimar Patel MD in OV> ? 01/25/2424 ? DD/ 1230 ? TD/TT: ? Relationship Assoc: ? Procedure Note [facility], Image - 01/25/2024 [place] [facility] [address] [place] [address] Mammography Report Signed Patient: Joan Armendariz RMR#: [id number] 594 : 3Acct:[id number] Age/Sex: 78 / FADM Date: 01/04/24 Loc: HO.MAMMO Attending Dr: Jeni Garcia MD Ordering Physician: Jeni Garcia MDResults: 1Ne gative Date of Service: 01/04/24Follow Up: 1 Year From Orig inal Mammogram Procedure(s): MM tomosynthesis screening BI Accession Number(s): [id number] cc: Jeni Garcia MD EXAMINATION: MM SCREENING [...] in OV> 01/25/24 0025 DD/ 1230 TD/TT: Relationship Assoc: Jeni Garcia MD IMG BI PROCEDURES Final [...] AM EDT) Cholesterol, Total 141 <200 mg/dL [facility] HDL Cholesterol 54 > OR = 50 mg/dL [facility] Triglycerides 99 <150 mg/dL [facility] LDL Cholesterol 69 mg/dL (calc) [facility] Comment: Reference range: <100 Desirable range <100 mg/dL for primary prevention; ?? <70 mg/dL for patients with CHD or diabetic patients with > or = 2 CHD risk factors. LDL-C is now calculated using the Rosalio calculation, which is a validated novel method providing better accuracy than the Friedewald equation in the estimation of LDL-C. Bebeto CANO et al. [place]. 2013;310(19): 3051-4006 (http://education.[employer].FameCast/faq/VKX162) Chol/HDLC Ratio 2.6 <5.0 (calc) [facility] Non-HDL Cholesterol 87 <130 mg/dL (calc) [facility] Comment: For patients with diabetes plus 1 major ASCVD risk factor, treating to a non-HDL-C goal of <100 mg/dL (LDL-C of <70 mg/dL) is considered a therapeutic option. 02/15/2023 11:0 9 AM EDT 02/15/2023 11:10 AM EDT Narrative [facility] - 02/16/2023 2:24 AM EDT FASTING:NO FASTING: NO Jeni Garcia MD LAB BLOOD ORDERABLES Fin al Result Performing Organization Address City/State/[facility] Co de Phone Number [facility] [address], [place] [phone] [facility] [address] [place] [phone] from Last 3 Months or Most Recently Relevant to Health Maintenance Insurance [facility] DUAL COMPLETE [facility] STANDARD DENTAL - [facility] * Guarantor: Joan Armendariz Account Type Relation to Patient Date of Phone Billing Address Personal/Family Self [address] [place] Care Teams Photo Editor Relationship Specialty Start Date End Date Jeni Garcia MD [address] [place] [phone] PCP - General Family Medicine 12/16/15
--- OUTSIDE RECORDS SUMMARY | 2024-12-07 13:17 | XMS_ITS | Encounter Summary ---
Author Organization [employer] Address [address] [facility] 7t [place] [address] Care Team Providers Care Publications Writer Name Role Phone Jeni Garcia MD Primary Care Provider + Reason for Visit * Reason Comments Routine Cleaning Dental Exam Encounter Details Date Type Department Care Team (Late st Contact Info) Description 11/13/2024 1:00 PM EST Office Visit [facility]ULT [facility] [address] [place], [place] [phone] [place] Dental calculus (Primary Dx); Dental [...] t he electric, gas, oil or water [employer] threatened to shut off services in your [...] (prophy and exam adult dental) Location: [facility] Tooth: Maxilla and Mandible Procedure: Exam and Prophylaxis Verified the above with patient, assistant professor of sociology, and provider. Confirmed via patient's chart, intraorally and by radiographs. Lighting Equipment Operator: not applicable Medical Hx: Vitals: Blood pressure [...] no decay noted, no restorative needs Recommendations: [place] two times daily, modified bolton technique, Floss daily, Electric toothbrush, Soft bristle toothbrush, [place] Tongue, Anti-sensitivity toothpaste Recall Frequency: 6 mo [...] (prophy and exam adult dental) Location: [facility] Tooth: Maxilla and Mandible Procedure: Exam and Prophylaxis Verified the above with patient, assistant professor of sociology, and provider. Confirmed via patient's chart, intraorally and by radiographs. Lighting Equipment Operator: not applicable Chief Complaint Patient presents with [...] Risk family cancer HX Oral Hygiene Instructions: [place] two times daily, modified bolton technique, Floss daily, Electric toothbrush, Soft bristle toothbrush, [place] Tongue Caries Risk Assessment: Medium- one risk factor Assessment/Plan RASHMI Prophy Next visit X Rays Recall Patient tolerated procedure well, all questions answered and expressed understanding. Dismissed in good condition. NV: 6 mos recall Application Support Developer: [place] RDH Dentist: Adam Romero DDS documented in this encounter Plan of Treatment Upcoming Encounters Date Type Department Care Team (Late st Contact Info) Description 05/28/2025 10:00 AM EDT Office Visit [facility] [address] [place] [address] [place] Scheduled Orders Name Type Priority [...] documented as of this encounter Care Teams Publications Writer Relationship Specialty Start Date End Date Jeni Garcia MD [address] [place] [address] PCP - General Family Medicine 12/16/15 documented as of this encounter
--- OUTSIDE RECORDS SUMMARY | 2024-12-07 13:17 | XMS_ITS | Encounter Summary ---
Author Organization [facility] Address [address] [facility] 7t [place] [address] Care Team Providers Care Tubular Products Fabricator Name Role Phone Jeni Garcia MD Primary Care Provider + Encounter Details Date Type Department Care Team (Latest Contact Info) Description 04/28/2021 Abstract [facility] CONVERSIONS Dental, Provider, DDS Social History Tobacco [...] AM EDT Office Visit [facility] ADULT [facility] [address] [place] [address] [place] documented as of this encounter Visit Diagnoses Not on filedocumented in this encounter Care Teams Tubular Products Fabricator Relationship Specialty Start Date End Date Jeni Garcia MD [address] [place], [place] [phone] PCP - General Family Medicine 12/16/15 documented as of this encounter
--- OUTSIDE RECORDS SUMMARY | 2024-12-07 13:17 | XMS_ITS | Encounter Summary ---
Author Organization [employer] [facility] Address [address] [place] [address] Care Team Providers Care House Wirer Helper Name Role Phone Jeni Garcia MD Primary [...] a message asking her to call the [employer] department at ext [phone]. Encounter Details Date Type Department Care Team (Late st Contact Info) Description 11/13/2024 Telephone [facility] MEDICINE [address] [place] [address] Jeni Garcia MD [address] [place] [address] DCF Form (I called to get more information, about a Family Resource Parent Medical Form, from [employer]. The patient needs to state whether she will be an adoptive parent, or will be living in the home of someone who will be an adoptive parent. I reached her voicemail, and left a message asking her to call the [employer] department at ext [phone].) Social History Tobacco [...] to call the forms department at ext [phone]. documented in this encounter Plan of Treatment Upcoming Encounters Date Type Department Care Team (Late st Contact Info) Description 05/28/2025 10:00 AM EDT Office Visit [facility] ADULT DENTAL [address] [place] [address] Blessing Bah documented as of this encounter Visit Diagnoses Not on filedocumented in this encounter Additional Health Concerns Assessment Noted Time PHQ-9 Depression Total Score: 0 11/16/19 23 10:53 AM EST documented as of this encounter Care Teams House Wirer Helper Relationship Specialty Start Date End Date Jeni Garcia MD [address] [place] [phone] PCP - General Family Medicine 12/16/15 documented as of this encounter
--- OUTSIDE RECORDS SUMMARY | 2024-12-07 13:17 | XMS_ITS | Clinical Summary ---
Author Organization [facility] Address [address] [place] [address] Phone Care Team Providers Care Milk Treater Name Role Phone Jeni Garcia MD Primary Care Provider + [phone] Allergies Active Allergy Reactions Criticality Noted Date [...] Visit [facility] [address] [facility] [address] [place] [address] Luke Quinn MD Hypertension (Primary [...] Visit [facility] [address] [address] Luke Quinn MD [address] [address] Health Maintenance Due Date Last Done Comments [...] Cystatin C 1.12 0.87 - 1.12 mg/L [facility] eGFR by Cystatin C 57(L) >59 mL/min/1.7 3 [facility] 09/25/2024 10:1 6 AM EST 09/25/2024 us Luke Quinn MD LAB BLOOD ORDERABLES Final Result [facility] [address] [place] [address] * Microscopic Examination (09/25/2024 10:16 AM EST) WBC, Urine None seen 0 - 5 /hpf [facility] RBC, Urine None seen 0 - 2 /hpf [facility] Squamous Epithelial, Urine 0-10 0 - 10 /hpf [facility] Casts None seen None seen /lpf [facility] Bacteria, Urine None seen None seen/Few [facility] 09/25/2024 10:1 6 AM EST 09/25/2024 Luke Quinn MD LAB MICROBIOLOGY - GE NERAL ORDERABLES Final Result Performing Organization Address [facility] de Phone Number [facility] [address] [place] [address] * (ABNORMAL) Iron Panel (Fe, TIBC, TSAT) (09/25/2024 10:16 AM EST) [facility] TIBC 417 250 - 450 ug/dL [facility] UIBC 371(H) 118 - 369 ug/dL [facility] Iron 46 27 - 139 ug/dL [facility] Iron Saturation (TSat) 11(L) 15 - 55 % [facility] Blood (Blood, Venous) 09/25/2024 10:16 AM EST 09/25/2024 us Luke Quinn MD LAB BLOOD ORDERABLES Final Result Performing Organization Address City/[facility] Co de Phone Number [facility] [address] [place] [address] * Protein, Total, Random Urine w/Creatinine (Protein/Creat Ratio) (09/25/2024 10:16 AM EST) Creatinine, Ur 86.4 Not Estab. mg/dL [facility] Protein, Ur 14.5 Not Estab. mg/dL [facility] Urine Protein/Creatin ine Ratio 168 0 - 200 mg/g creat [facility] Urine (Urine, Clean Catch) 09/25/2024 10:16 AM EST 09/25/2024 Luke Quinn MD LAB URINE ORDERABLES Final Result Performing Organization Address City/[facility] Co de Phone Number [facility] [address] [place] [address] * Urine Albumin / Creatinine Ratio (09/25/2024 10:16 AM EST) Pathologist [facility] Urine Microalbumin 3.6 Not Estab. ug/mL [facility] Microalbumin/Crea tinine Ratio 4 0 - 29 mg/g creat [facility] Comment: ? Normal: ?0 - ??29 ? Moderately increased: 30 - 300 ? Severely increased: ? >300 Urine (Urine, Clean Catch) 09/25/2024 10:16 AM EST 09/25/2024 Luke Quinn MD LAB URINE ORDERABLES Final Result Performing Organization Address City/[facility]/ZIP Co de Phone Number [facility] [address] [place] [address] * (ABNORMAL) Vitamin D 25 Hydroxy (09/25/2024 10:16 AM EST) Vitamin D, 25-OH, Total 14.6(L) 30.0 - 100.0 ng/mL [facility] Comment: Vitamin D deficiency has been defined by the [place] of Medicine and an Endocrine Society practice guideline as a level of serum 25-OH vitamin D less than 20 ng/mL (1,2). The Endocrine Society went on to further define vitamin D insufficiency as a level between 21 and 29 ng/mL (2). 1. IOM ([place] of Medicine). 2010. Dietary reference ?? intakes for calcium and D. [place]: The ?? National [employer]. 2. Edith MF, Tania DINERO, Amando PAREDES, et al. ?? Evaluation, treatment, and prevention of vitamin D ?? deficiency: an Endocrine Society clinical practice ?? guideline. JCEM. 2010; 96(7):1911-30. Blood (Blood, Venous) 09/25/2024 10:16 AM EST 09/25/2024 us Luke Quinn MD LAB BLOOD ORDERABLES Final Result [facility] [address] [place] [address] * (ABNORMAL) Urinalysis (09/25/2024 10:16 AM EST) Specific [place], Urine 1.016 1.005 - 1.030 [facility] [phone] pH Urine 6.0 5.0 - 7.5 [facility] [phone] Color, Urine Yellow Yellow [facility] [phone] Appearance Urine Clear Clear [facility] WBC Esterase Urine Trace(A) Negative [facility] Protein, Ur Negative Negative/Tra ce [facility] Glucose, Ur Negative Negative [facility] [phone] Ketones, Urine Negative Negative [facility] Blood Urine Negative Negative [facility] [phone] Bilirubin Urine Negative Negative [facility] Urobilinogen Urine 0.2 0.2 - 1.0 mg/dL [facility] [phone] Nitrite, Urine Negative Negative [facility] Microscopic Examination See below: [facility] Comment:Microscopic was binh cated and was performed. Urine (Urine, Clean Catch) 09/25/2024 10:16 AM EST 09/25/2024 us Luke Quinn MD LAB URINE ORDERABLES Final Result [facility] [address] [place] [address] * (ABNORMAL) CBC and Differential (09/25/2024 10:16 AM EST) WBC 8.0 3.4 - 10.8 x10E3/uL [facility] RBC 4.43 3.77 - 5.28 x10E6/uL [facility] Hemoglobin 12.6 11.1 - 15.9 g/dL [facility] Hematocrit 40.4 34.0 - 46.6 % [facility] MCV 91 79 - 97 fL [facility] MCH 28.4 26.6 - 33.0 pg [facility] MCHC 31.2(L) 31.5 - 35.7 g/dL [facility] RDW 14.9 11.7 - 15.4 % [facility] Platelets 193 150 - 450 x10E3/uL [facility] Neutrophils Relative 57 Not Estab. % [facility] Lymphocytes Relative 19 Not Estab. % [facility] Monocytes 10 Not Estab. % [facility] Eosinophils Relative 13 Not Estab. % [facility] Basophils Relative 1 Not Estab. % [facility] Neutrophils Absolute 4.6 1.4 - 7.0 x10E3/uL [facility] Lymphocytes Absolute 1.5 0.7 - 3.1 x10E3/uL [facility] Monocytes Absolute 0.8 0.1 - 0.9 x10E3/uL [facility] Eosinophils Absolute 1.0(H) 0.0 - 0.4 x10E3/uL [facility] Basophils Absolute 0.1 0.0 - 0.2 x10E3/uL [facility] Immature Granulocytes 0 Not Estab. % [facility] Immature Grans (Absolute) 0.0 0.0 - 0.1 x10E3/uL [facility] Blood (Blood, Venous) 09/25/2024 10:16 AM EST 09/25/2024 us Luke Quinn MD LAB BLOOD ORDERABLES Final Result [facility] [address] [place] [address] * Uric Acid (09/25/2024 10:16 AM EST) Uric Acid 4.8 3.1 - 7.9 mg/dL [facility] Comment:Therapeutic target f or gout patients: <6.0 Blood (Blood, Venous) 09/25/2024 10:16 AM EST 09/25/2024 us Luke Quinn MD LAB BLOOD ORDERABLES Final Result [facility] [address] [place] [address] * PTH, Intact (09/25/2024 10:16 AM EST) PTH 34 15 - 65 pg/mL [facility] Blood (Blood, Venous) 09/25/2024 10:16 AM EST 09/25/2024 us Luke Quinn MD LAB BLOOD ORDERABLES Final Result Performing Organization Address [facility] Co de Phone Number [facility] [address] [place] [address] * Magnesium (09/25/2024 10:16 AM EST) Magnesium 2.2 1.6 - 2.3 mg/dL [facility] Blood (Blood, Venous) 09/25/2024 10:16 AM EST 09/25/2024 us Luke Quinn MD LAB BLOOD ORDERABLES Final Result Performing Organization Address City/[facility]/ZIP Co de Phone Number [facility] [address] [place] [address] * (ABNORMAL) Hemoglobin A1c (09/25/2024 10:16 AM EST) Hemoglobin A1C 6.3(H) 4.8 - 5.6 % [facility] Comment: ? Prediabetes: 5.7 - 6.4 ? Diabetes: >6.4 ? Glycemic control for adults with diabetes: <7.0 Blood (Blood, Venous) 09/25/2024 10:16 AM EST 09/25/2024 us Luke Quinn MD LAB BLOOD ORDERABLES Final Result Performing Organization Address City/[facility]/ZIP Co de Phone Number [facility] [address] [place] [address] * Ferritin (09/25/2024 10:16 AM EST) Pathologist [facility] Ferritin 21 15 - 150 ng/mL [facility] Blood (Blood, Venous) 09/25/2024 10:16 AM EST 09/25/2024 us Luke Quinn MD LAB BLOOD ORDERABLES Final Result Performing Organization Address [facility] de Phone Number [facility] [address] [place] [address] * (ABNORMAL) Renal Function Panel (09/25/2024 10:16 AM EST) Glucose 63(L) 70 - 99 mg/dL [facility] BUN 12 8 - 27 mg/dL [facility] Creatinine 0.93 0.57 - 1.00 mg/dL [facility] eGFR CKD-EPI CR 2020 62 >59 mL/min/1.7 3 [facility] BUN/Creatinine Ratio 13 12 - 28 [facility] Sodium 138 134 - 144 mmol/L [facility] Potassium 4.4 3.5 - 5.2 mmol/L [facility] Chloride 103 96 - 106 mmol/L [facility] Bicarbonate (CO2) 22 20 - 29 mmol/L [facility] Calcium 9.2 8.7 - 10.3 mg/dL [facility] Phosphorus 3.1 3.0 - 4.3 mg/dL [facility] Albumin 4.0 3.7 - 4.7 g/dL [facility] Blood (Blood, Venous) 09/25/2024 10:16 AM EST 09/25/2024 Luke Quinn MD LAB BLOOD ORDERABLES Final Result [facility] [address] [place] [address] from Last 3 Months Insurance [place] [employer] [place] [employer] [place] Care Teams Milk Treater Relationship Specialty Start Date End Date Jeni Garcia MD [address] [place] [id number] PCP - General Internal Medicine 08/06/21
--- OUTSIDE RECORDS SUMMARY | 2024-12-07 13:17 | XMS_ITS | Encounter Summary ---
Author Organization [employer] [facility] Address [address] [place] [address] [address] [place] [address] Care Team Providers Care Rating Specialist Name Role Phone Jeni Garcia MD Primary Care Provider + Encounter Details Date Type Department Care Team (Late st Contact Info) Description 09/27/2022 [facility] Only [place] [facility] [address] [place], [place] [phone] Jeni Garcia MD [address] [place], [place] [phone] Social History Tobacco Use Types Packs/Day Years [...] Description 05/28/2025 10:00 AM EDT Office Visit [facility] ADULT D[facility] [address] [place], [place] [phone] Blessing Bah documented as of this encounter Visit Diagnoses Not on filedocumented in this encounter Care Teams Rating Specialist Relationship Specialty Start Date End Date Jeni Garcia MD [address] [place], [place] [phone] PCP - General Family Medicine 12/16/15 documented as of this encounter
--- OUTSIDE RECORDS SUMMARY | 2024-12-07 13:17 | XMS_ITS | Encounter Summary ---
Author Organization [employer] [facility] Address [address] [place] [address] Care Team Providers Care Log Inspector Name Role Phone Jeni Garcia MD Primary Care Provider + Encounter Details Date Type Department Care Team (Late Contact Info) Description 04/04/2023 Orders Only [facility] MEDICINE [address] [place] [address] Jeni Garcia MD [address] [place] [address] Social History Tobacco Use Types Packs/Day Years [...] Description 05/28/2025 10:00 AM EDT Office Visit [facility] ADULT DENTAL [address] [place] [address] Blessing Bah documented as of this encounter Visit Diagnoses Not on filedocumented in this encounter Additional Health Concerns Assessment Noted Time PHQ-9 Depression Total Score: 0 11/16/19 23 10:53 AM EST documented as of this encounter Care Teams Log Inspector Relationship Specialty Start Date End Date Jeni Garcia MD [address] [place] [address] PCP - General Family Medicine 12/16/15 documented as of this encounter
== END 2024-12-07 12:46 | disposition home or self-care (01) ==
LOC: HO.HHCX 12:45
PROVIDERS: Visit Provider Internal Medicine
DX: J10.1 Influenza due to other identified influenza virus with other respiratory manifestations (principal); J40 Bronchitis, not specified as acute or chronic
CPT/HCPCS: 71046

== ENCOUNTER → 2024-12-07 12:46 | Outpatient (BNV) | payer OTHER, SELFPAY | PROVIDERS: Visit Provider Radiology Diagnostic Radiology | DX: J84.9 Interstitial pulmonary disease, unspecified (principal) | CPT/HCPCS: 71046 ==

== ENCOUNTER 2024-12-10 10:37 | Outpatient (AMB) | payer OTHER, SELFPAY ==
[2024-12-10 10:57] VITALS: BP 154/70; PULSE 71; O2SAT 96; BMI 36.9
--- NOTE | 2024-12-10 10:57 | MHC.OFFVIS ---
Vital Signs 12/10/24 10:57 Height 4 ft 10 in Weight 176 lb 5.917 oz BMI 36.9 BP 154/70 H Blood Pressure Location Rt brachial Position Sitting Pulse 71 Pulse Source Pulse Oximeter Pulse Oximetry (%) 96 Oxygen Delivery Method Room Air Intake Visit Reasons: Shortness of breath Allergies codeine [CODEINE] Allergy (Mild, Verified 11/29/24 19:16) Rash morphine [MORPHINE] Allergy (Mild, Verified 11/29/24 19:16) Hallucinations oxycodone [Percocet] Allergy (Mild, Verified 11/29/24 19:16) Hives tramadol Adverse Reaction (Severe, Verified 11/29/24 19:16) Headache HPI Comments Details: The patient is a 79-year-old woman with a known history of asthma and chronic rhinitis. overall she has been doing well with the current respiratory regimen. She has not had to use her rescue inhaler more than twice a week. She does have significant rheumatoid arthritis and has been on methotrexate. we did review her last chest x-ray demonstrating some mild atelectasis of the left base. Her PFTs also demonstrated mild restrictive lung disease. Therefore, we need to follow closely any changes while she is on the methotrexate. Otherwise she is doing very well on the current respiratory regimen. She does have some shortness of breath with activity but is mild. her acid reflux appears to be more controlled on the current medication and she is trying to maintain reflux diet along with sleeping elevated. She does take allergy medicine with good effect. 12/31/2021 the patient is here for a pulmonary follow-up visit. Overall she is feeling well. Her breathing has improved and also her volume status has also improved. She continues on methotrexate. This is helping her significantly. She is not taking the 8 tablets a week she is actually taking just 6 tablets. She is to be enough to keep her stable. In the meantime her lower extremity edema has improved. I did review her chest x-ray that she had back in September demonstrating some persistent atelectasis to the left base. I also reviewed her CT scan that she had back in May 2021 demonstrating again areas of atelectasis and less likely pneumonitis. Primarily at the left lung. Will continue to monitor closely her imaging with repeat x-ray in months. Patient is to continue with current therapy. If any issues she is to call for an earlier evaluation. 10/28/2022 the patient is here for a pulmonary follow-up visit. The patient continues to do well. Back in the fall she did have a flare-up of her asthma. She had to use her nebulizer machine a few times a day. Although, she did not need any prednisone. She continues on the methotrexate. She is actually just taking 6 tablets weekly. She is following closely with blood work through the [facility]. She did have a repeat chest x-ray which I personally reviewed. Still has some areas of atelectasis. Also has likely some increased attenuation primarily due to soft tissue but I do not see any evidence of any active lung disease. Will wait for the final read of the x-ray. In the meantime the patient should be on a maintenance inhaler. She had been on Spiriva 4. Will go ahead and switch her to Advair HFA to see if she has a better response. The patient also does not do well with powdered inhalers. 05/02/2023 the age the patient is here for pulmonary follow-up visit. Overall the patient has been doing well. She continues on the methotrexate. No evidence of any adverse effects. The patient has been using her Advair HFA seems to be working well for her. She has a rescue inhaler that she had not had to use. She is no longer using the Spiriva. Her last chest x-ray was back in October or in the winter time demonstrating some atelectasis but stable. Will plan to do a repeat chest x-ray when she comes back in the springtime. The patient is recovering from her shoulder surgery. She had no issues with anesthesia and currently recovering well. 10/31/2023 the patient is here for pulmonary follow-up visit. Since we last spoke the patient was admitted to [facility] back in the fall with pneumonia. She was told she had fluid around the lungs and also the heart. The subsequent lab got better. Then she developed issues with lower extremity edema and swelling primarily the left lower extremity. She has significant inflammation and redness consistent with cellulitis. She was briefly admitted to the hospital. She completed a course of antibiotics but she does not know the name. At this point the areas getting red and warm again tender. She looks like she is getting recurrent cellulitis. She understands that the lower extremity edema becomes an issue with dermatitis and her scratching and the recurrent infections in the fact that she is on immunosuppressant therapy. Therefore, will give her a course of doxycycline to avoid further spread. The patient also will talk to her primary care doctor about her medications. The amlodipine may be aggravating the lower extremity edema. She may need also additional diuretics. She has a hard time with the compression socks. As far as her lungs she has been doing well now with the Advair. She recovered from the pneumonia and will go ahead and treat her with the Prevnar 20 pneumonia vaccine. In addition to that the patient should get a repeat x-ray to make sure that she does not have any residual changes from her pneumonia. Clinically her respiratory exam is stable and her respiratory exam is also reassuring. 05/04/2024 the patient is here for a pulmonary follow-up visit. Overall the patient is doing well. She does complaint of possible aches and pains. She has some back pain and at times knee pain. She does use her inhalers as prescribed. The patient is on methotrexate once a week with good response. She is not taking any prednisone she does not like do a makes it feel. As far as pain she has gabapentin that she uses at needed just small dose at nighttime because it makes her dizzy. She was evaluated for her back pain in the hospital. She had an x-ray without any acute disease. In addition to that she had an abdominal or CT scan demonstrating no acute disease either. No parenchymal involvement no pleural involvement. The back pain is very much associated with the paraspinal area. It is very tender to the touch. The patient did respond well to Flexeril. I will send her another prescription to the pharmacy. 12/10/2024 the patient is here for pulmonary follow-up visit. Overall she is doing okay. Although beginning of the month she did develop significant fevers in [place] addition to respiratory complaints. She came into the hospital she was diagnosed with influenza a. She was discharged home. Then she is tired doctor started antibiotics for postviral back serial bronchitis. In the meantime she stopped the methotrexate. She did have a chest x-ray which I personally reviewed demonstrating the interstitial changes. Will have to get a repeat x-ray at some point to follow-up with it. But clinically she is feeling well this time. She is completing her antibiotics at this time. She continues use her respiratory therapy with good effect. Therefore will continue her current respiratory therapy will follow-up in 6 months unless she does not feel that she can call for an earlier assessment. [facility] Medical History Pleural effusion Cellulitis Limb swelling Chest pain Asthma Chronic allergic rhinitis Atelectasis of left lung Family History Father Lung cancer Mother Throat cancer Social History Patient Tobacco Use Status: Former Tobacco user Tobacco use type: Cigarette Years Smoked: 4 years Review of Systems Const Denies night sweats ENT Denies change in voice, Denies lip swelling, Denies mouth pain, Reports nasal congestion, Reports nasal discharge and Denies tongue swelling Card Denies chest pain, Reports leg edema and Denies dyspnea on exertion Resp Reports cough and Denies dyspnea on exertion GI Denies abdominal pain Musc Reports abnormal gait, Reports myalgias and Reports arthralgias Skin/Breast Reports pruritus, Reports erythema, Reports skin pain and Reports skin swelling Neuro Denies Neuro-related abnormal movements and Reports abnormal gait Psych Denies no additional complaints Danny/Lymph Denies easy bleeding and Denies lymphadenopathy Aller/Immun Denies lip swelling and Denies tongue swelling Physical Exam Vital Signs: Last Vital Signs Pulse 71 12/10/24 10:57 BP 154/70 H 12/10/24 10:57 Pulse Ox 96 12/10/24 10:57 Oxygen Delivery Method Room Air 12/10/24 10:57 BMI result Body Mass Index 36.9 Const General: alert Neck Neck: Yes normal visual inspection, Yes full ROM and Yes no lymphadenopathy Chest Chest palpation & inspection: normal inspection of the chest Resp Effort & Inspection: normal respiratory effort Auscultation: no rales and diminished lung sounds Cardio Rate: regular rate Rhythm: regular rhythm Heart sounds: S1 normal heart sound present and S2 normal heart sound present GI Palpation (GI): Soft to palpation and nontender Auscultation: normal bowel sounds Skin General skin exam: rashes and/or lesions noted Extrem General: No edema Assessment & Plan Assessment & Plan (1) Chronic allergic rhinitis: Code(s): J30.9 - Allergic rhinitis, unspecified Category: Medical (2) Atelectasis of left lung: Comment: Currently on Methotrexate Code(s): J98.11 - Atelectasis Category: Medical (3) Asthma: Code(s): J45.909 - Unspecified asthma, uncomplicated Category: Medical Qualifiers: Asthma complication type: uncomplicated Asthma persistence: persistent Asthma severity: mild Qualified Code(s): J45.30 - Mild persistent asthma, uncomplicated (4) Limb swelling: Code(s): M79.89 - Other specified soft tissue disorders Category: Medical (5) Back pain: Code(s): M54.9 - Dorsalgia, unspecified Category: Medical Qualifiers: Back pain laterality: unspecified Back pain location: thoracic back pain Chronicity: unspecified Qualified Code(s): M54.6 - Pain in thoracic spine Plan Short-acting beta agonist as needed continue singular continue Advair HFA continue methotrexate. complete antibiotics F/U 6-8 months Coding Level of Care Code Est Pt Level 4 (24209) Diagnoses Chronic allergic rhinitis J30.9 Atelectasis of left lung J98.11 Mild persistent asthma without complication J45.30 Asthma complication type: uncomplicated Asthma persistence: persistent Asthma severity: mild Limb swelling M79.89 Thoracic back pain, unspecified back pain laterality, unspecified chronicity M54.6 Back pain laterality: unspecified Back pain location: thoracic back pain Chronicity: unspecified Time Spent (min) 16
--- OUTSIDE RECORDS SUMMARY | 2024-12-10 11:58 | XMS_ITS | Encounter Summary ---
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) Jeni Garcia MD [address] [place] [address] Phone: tel: fax: [facility] [address] [place] [address] Phone: tel: fax: Referral ID Status Reason Start Date Expiration Date V isits Requested Visits Authorized [id number] Closed Specialty Services Required 06/13/2024 06/13/2025 1 1 Encounter Details Date Type Department Care Team (Late st Contact Info) Description 06/13/2024 Orders Only [facility] [address] [place], [place] [phone] Jeni Garcia MD [address] [place], [place] [phone] Renal artery stenosis (CMS/HCC); Superior mesenteric artery [...] 10:00 AM EDT Office Visit [facility] ADULT DENTAL [address] [place] [address] [place]ing Bah Scheduled Referrals Name Type Priority [...] EDT Narrative 06/28/2024 4:28 PM EDT ? [facility] ?[address] ?[place] [address] ?XRay Report ? Signed ? Patient: Joan Armendariz R ?MR#: [id number] ?? [id number] ? : 1945 ?Acct:[id number] ? Age/Sex: 79 / F ?ADM Date: 06/28/24 ? Loc: HO.ED ? Attending Dr: ? Ordering Physician: Geovanna Austin ?? Date of Service: 06/28/24 ?? Procedure(s): XR lumbar spine 2-3V ?? Accession Number(s): [id number] ? cc: Jeni Garcia MD; Geovanna Austin [...] DD/ 1600 ? TD/TT: 06/28/24 1615 ? Quality Assurance Monitor Final: ? Procedure Note [place], Image - 06/28/2024 [place] [address] XRay Report Signed Patient: Joan Armendariz RMR#: [id number] : 3Acct:[id number] Age/Sex: 79 / FADM Date: 06/28/24 Loc: HO.ED Attending Dr: Ordering Physician: Geovanna Austin Date of Service: 06/28/24 Procedure(s): XR lumbar spine 2-3V Accession Number(s): [id number] cc: Jeni Garcia MD; Geovanna Austin EXAMINATION: [...] 06/28/24 1625 DD/ 1600 TD/TT: 06/28/24 1615 Quality Assurance Monitor Final: [facility] External Provider IMG XR PROCEDURES Final Result * XR Chest 1 View (06/28/2024 12:52 PM EDT) Anatomical Region Laterality Modality Chest Radiographic Tamiko ging 06/28/2024 12:5 2 PM EDT Narrative 06/28/2024 3:02 PM EDT ? [facility] ?[address] ?[place] [address] ?XRay Report ? Signed ? Patient: Armendariz,Joan R ?MR#: [id number] ?? [id number] ? : 1945 ?Acct:[id number] ? Age/Sex: 79 / F ?ADM Date: 09/12/24 ? Loc: HO.ED ? Attending Dr: ? Ordering Physician: Geovanna Austin ?? Date of Service: 06/28/24 ?? Procedure(s): XR chest 1V ?? Accession Number(s): [id number] ? cc: Jeni Garcia MD; Geovanna Austin [...] DD/ 1252 ? TD/TT: 06/28/24 1259 ? Quality Assurance Monitor Final: RK ? Procedure Note [place], Image - 06/28/2024 [place] [address] XRay Report Signed Patient: Joan Armendariz RMR#: [id number] : 3Acct:[id number] Age/Sex: 79 / FADM Date: 06/28/24 Loc: HO.ED Attending Dr: Ordering Physician: Geovanna Austin Date of Service: 06/28/24 Procedure(s): XR chest 1V Accession Number(s): [id number] cc: Jeni Garcia MD; Geovanna Austin EXAMINATION: [...] 06/28/24 1459 DD/ 1252 TD/TT: 06/28/24 1259 Quality Assurance Monitor Final: BETH [facility] External Provider IMG XR PROCEDURES Final Result [...] documented as of this encounter Care Teams Criminal Judge Relationship Specialty Start Date End Date Jeni Garcia MD [address] [place] [phone] PCP - General Family Medicine 12/16/15 documented as of this encounter
--- OUTSIDE RECORDS SUMMARY | 2024-12-10 11:58 | XMS_ITS ---
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 Name Role Phone Sveta Calderon Unavailable [phone] Unavailable Unavailable Unavailable Unavailable Unavailable Unavailable Reason [...] mg Tab TAKE 1 TABLET BY [facility] EVERY 8 HOURS NEEDED FOR MILD PAIN [...] calculi Resolved 2022-12-02 Other problems related to [facility] facilities and other health care Active 2023-11-25 N/A Glaucoma Active 2022-11-05 N/A Cataracts, bilateral Active 2022-11-05 N/A Arthritis of left upper arm Active 2022-12-02 N/A Atherosclerosis of renal art celine, 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, bilateral [...] (do not use for phone, instead use [id number]) [facility] Rheumatoid polyneurop w rheumatoid arthritis of unsp siteAtherosclerosis of renal arteryAthscl kaw arteries of extrm w intrmt nilesh, bi legsPersonal history of urinary calculi New patient,40-59min; chronic exacerbation, 2 stable chronic or 1 acute illness add add modifier 95 for video (do not use for phone, instead use 32057-01) [facility] New patient,40-59min; chronic exacerbation, 2 stable chronic or 1 acute illness add add modifier 95 for video (do not use for phone, instead use 17686-26) [facility] ([place] 11/[place] New patient,40-59min; chronic exacerbation, 2 stable chronic or 1 acute illness add add modifier 95 for video (do not use for phone, instead use 41181-07) [facility] New patient,40-59min; chronic exacerbation, 2 stable chronic or 1 acute illness add add modifier 95 for video (do not use for phone, instead use 98205-39) [facility] New patient,40-59min; chronic exacerbation, 2 stable chronic or 1 acute illness add add modifier 95 for video (do not use for phone, instead use 23965-70) [facility]20[place] No Data Available [facility] 12[place]2022 Primary osteoarthritis, left elbowPersonal history of urinary calculi No Data Available [facility]2022 No Data Available [facility] 12[place]2022 No Data Available [facility] 01/25/2023 Shortness of breathCough, unspecified Estab. patient 20-29min; 1 stable chronic or 2 minor; add add modifier 95 for video, modifier 93 for phone [facility] 07/25/2023 Rheumatoid polyneurop w rheumatoid arthritis of unsp siteAtherosclerosis of renal arteryAthscl kaw arteries of extrm w intrmt nilesh, bi legsPersonal history of urinary calculiAcquired absence of other specified parts of digestive tractUnspecified asthma, uncomplicatedUnspecified glaucomaUnspecified cataractImmunodeficiency due to drugsOther group home (current) drug therapyChronic obstructive pulmonary disease, unspecifiedObesity, unspecifiedBody mass index (BMI) 35.0-35.9, adultPrimary osteoarthritis, left elbowShortness of breathCough, unspecified Estab. patient 20-29min; 1 stable chronic or 2 minor; add add modifier 95 for video, modifier 93 for phone [facility] 07[place]20[place] Estab. patient 20-29min; 1 stable chronic or 2 minor; add add modifier 95 for video, modifier 93 for [facility]2023 Estab. patient 20-29min; 1 stable chronic or 2 minor; add add modifier 95 for video, modifier 93 for [facility] 07/25/2023 Estab. patient 20-29min; 1 stable chronic or 2 minor; add add modifier 95 for video, modifier 93 for phone [facility] 07/[place]/2023 Estab. patient 20-29min; 1 stable chronic or 2 minor; add add modifier 95 for video, modifier 93 for [facility] 07/25/2023 No Data Available [facility] 09[place]/2023 Chronic obstructive pulmonar y disease, unspecifiedRheumatoid polyneurop w rheumatoid arthritis of unsp siteAtherosclerosis of renal arteryAthscl kaw arteries of extrm w intrmt nilesh, bi legsImmunodeficiency due to drugsPersonal history of urinary calculiAcquired absence of other specified parts of digestive tractUnspecified asthma, uncomplicatedUnspecified glaucomaUnspecified cataractOther termite treater (current) drug therapyObesity, unspecifiedBody mass index (bmi) 34.0-34.9, adultPrimary osteoarthritis, left elbowShortness of breathCough, unspecifiedCellulitis, unspecified No Data Available [facility] 09/[place]/2023 No Data Available [facility] 09/[place]/2023 No Data Available [facility] 09/[place]/2023 RN, CN or CP time with patient by phone; use with 1111F, BP, A1c or other CPTII codes [facility] ([place] 09/26/2023 Encounter for other specifie d aftercare RN, CN or CP time with patient by phone; use with 1111F, BP, A1c or other CPTII codes [facility] [place] 09/26/2023 Estab. patient 30-39min; chronic exacerbation, 2 stable chronic or 1 acute illness add add modifier 95 for video, (do not use for phone, instead use 34059-23) [facility] [place] 11/25/2023 Rheumatoid polyneurop w rheumatoid arthritis of unsp siteAtherosclerosis of renal arteryAthscl kaw arteries of extrm w intrmt nilesh, bi legsUnspecified glaucomaUnspecified cataractImmunodeficiency due to drugsOther group home (current) drug therapyChronic obstructive pulmonary disease, unspecifiedObesity, unspecifiedPrimary osteoarthritis, left elbowOther problems related to medical facilities and other health careAthscl heart disease of kaw cor art w unstable ang pctrsPeripheral vascular disease, unspecifiedDermatitis, unspecifiedType 2 diabetes mellitus with other specified complicationMixed hyperlipidemia Estab. patient 30-39min; chronic exacerbation, 2 stable chronic or 1 acute illness add add modifier 95 for video, (do not use for phone, instead use 10378-51) [facility] Estab. patient 30-39min; chronic exacerbation, 2 stable chronic or 1 acute illness add add modifier 95 for video, (do not use for phone, instead use 78720-13) [facility] 11[place]/2023 Estab. patient 30-39min; chronic exacerbation, 2 stable chronic or 1 acute illness add add modifier 95 for video, (do not use for phone, instead use 76075-56) [facility]23 Estab. patient 30-39min; chronic exacerbation, 2 stable chronic or 1 acute illness add add modifier 95 for video, (do not use for phone, instead use 44183-79) [facility]/2023 Estab. patient 30-39min; chronic exacerbation, 2 stable chronic or 1 acute illness add add modifier 95 for video, (do not use for phone, instead use 05831-04) [facility]/2023 Estab. patient 30-39min; chronic exacerbation, 2 stable chronic or 1 acute illness add add modifier 95 for video, (do not use for phone, instead use 69372-86) [facility]/2023 Estab. patient 30-39min; chronic exacerbation, 2 stable chronic or 1 acute illness add add modifier 95 for video, (do not use for phone, instead use 84022-98) [facility]/2023 Estab. patient 30-39min; chronic exacerbation, 2 stable chronic or 1 acute illness add add modifier 95 for video, (do not use for phone, instead use 80748-95) [facility] 11/[place]/2023 Estab. patient 30-39min; chronic exacerbation, 2 stable chronic or 1 acute illness add add modifier 95 for video, (do not use for phone, instead use 97807-42) [facility] 11/[place]/2023 Estab. patient 30-39min; chronic exacerbation, 2 stable chronic or 1 acute illness add add modifier 95 for video, (do not use for phone, instead use 60340-75) [facility] 11/25/2023 Vital Signs Date of Collection Vitals [...] Time Current Smoking Status Former smoker 2024-11-18 2 Sex Female History of Procedures Procedures Service Procedure code Service date Servicing provider Phone# New patient,40-59min; chronic exacerbation, 2 stable chronic or 1 acute illness add add modifier 95 for video (do not use for phone, instead use 86492-66) [id number] 2022-11-05 No Data Available No Data Availa [...] le No Data Available No Data Available [id number] 2022-12-02 No Data Available No Data Available Medication List Documented (1159F) 1159F 2022-12-02 No Data Available No Data Lucretia ilable Pain Assessment - Pain Documented on a Pain Scale (1125F) 1125F 2022-12-02 No Data Available No Data Lucretia ilable No Data Available [id number] 2023-01-25 No Data Available No Data Available Estab. patient 20-29min; 1 stable chronic or 2 minor; add add modifier 95 for video, modifier 93 for phone 01659 2023-07-25 No Data Available No Data Availa [...] le No Data Available No Data Available [id number] 2023-09-30 No Data Available No Data Available [...] 1111F, BP, A1c or other CPTII codes 99322 2023-09-26 No Data Available No Data Avai lable Medications prescribed in hospital were reviewed and reconciled against what they were taking prior to admission during today's visit. (1111F) 1111F 2023-09-26 No Data Available No Data Availa ble Estab. patient 30-39min; chronic exacerbation, 2 stable chronic or 1 acute illness add add modifier 95 for video, (do not use for phone, instead use 69945-33) 17273 2023-11-25 No Data Available No Data Availa [...] unspecified siteAtherosclerosis of renal artery, 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, bilateral legsHx of renal calculi 2022-12-02 12:17:08 Arthritis of left up per armHx of renal calculi 2023-01-25 09:24:51 Follow up plan for a cute symptoms: F/U PCPShortness of breath with cough 2023-07-25 08:46:34 <Fully document all Diagnosis>Rheumatoid polyneuropathy with rheumatoid arthritis of unspecified siteAtherosclerosis of renal artery, 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, bilateral legsHx of renal calculiHx of cholecystectomyAsthmaGlaucomaCataracts, bilateralImmunodeficiency due to drugsChronic obstructive pulmonary disease, unspecifiedObesity (BMI 30.0-34.9)Arthritis of left upper armHx of renal calculiShortness of breath with cough 2023-09-30 07:29:04 Rheumatoid polyneuro gregor with rheumatoid arthritis of unspecified siteAtherosclerosis of renal artery, 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, bilateral legsHx of renal calculiHx of cholecystectomyAsthmaGlaucomaCataracts, bilateralImmunodeficiency due to drugsChronic obstructive pulmonary disease, unspecifiedObesity (BMI 30.0-34.9)Arthritis of left upper armHx of renal calculiShortness of breath with coughCellulitis 2023-11-25 11:48:09 Other problems relat ed to medical facilities and other health careRheumatoid polyneuropathy with rheumatoid arthritis of unspecified siteAtherosclerosis of renal artery, 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, bilateral legsGlaucomaCataracts, bilateralImmunodeficiency due to drugsChronic obstructive pulmonary disease, unspecifiedObesity (BMI 30.0-34.9)Arthritis of left upper armOther problems related to medical facilities and other health careAtherosclerosis of renal artery, 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 (1111F)Continue to see PCP. [facility] or disease education needs that may arise 09/05.Methotrexare, taking fewer (6) tabs than prescribed (8), concerned about AE .Advised to tlk to rheumatology about it.Not on a statin - will investigateEncouraged to lose weightEast high fiber foodActivity as toleratedRecently passed a kidney stone, 11/0366Xrykucaf7/24/2022tableAdvair,Albuterol PRN,Montelukast.ophtho consult coing up in Januaryophtho consult [...] joint pain increased [facility]. [facility] as needed for any acute or [...] smoking.keep skin hydrated triamcinolone PRN Eosinophil count [id number] 08/19/23not on any medication Advised to eat [...]
--- OUTSIDE RECORDS SUMMARY | 2024-12-10 11:58 | XMS_ITS | Encounter Summary ---
Author Organization [employer] Address [address] [facility] 7t [place] [address] Care Team Providers Care Underwriting Assistant Name Role Phone Jeni Garcia MD Primary Care Provider + Reason for Visit * Reason Comments ER Follow-up Encounter Details Date Type Department Care Team (Latest Contact Info) Description 12/07/2024 12:15 PM EST Office Visit [facility] [address] [place], [place] [phone] Jeni Garcia MD [address] [place], [place] [phone] Influenza A (Primary Dx); Bronchitis; Pulmonary emphysema, [...] 11:53 AM EST documented in this encounter Progress Notes * Jeni Garcia MD - 12/07/2024 12:15 PM EST SUBJECTIVE: Joan Armendariz is a 79 y.o. year old female who presents for follow up [facility] ED visit for Influenza type A. Patient admitted on 11/29/2024 at [place] ED with URI symptoms X 1 week. She tested positive for Influenza type A. Chest X-ray showed peribronchial thickening with no consolidation, labs were fairly normal and she was discharged home on tylenol and ibuprofen. She complains of clear phlegm and denies fever or chills since discharge. She continues with pleuritic chest pain, fatigue. She is out of Albuterol Neb solution. Patient was seen at the [facility] for back pain on 11/28/24 and referred to neurosurgery. She lives at home with her daughter who is also sick. Acute Concerns: Social History Social History Narrative Not on file Patient Active Problem List Diagnosis Abnormal gait Hypothyroidism Angle-closure glaucoma Calcaneal spur Eczema Chronic low back pain Chronic obstructive pulmonary disease (CMS/HCC) BMI 35.0-35.9,adult Closed fracture of fifth metatarsal bone Degeneration of lumbar intervertebral disc Edema of lower extremity GERD (gastroesophageal reflux disease) Eosinophil count raised Chest pain Greater trochanteric pain syndrome Pain in lower limb Heel pain History of cholecystectomy Neck pain Osteopenia Prediabetes Primary osteoarthritis of both knees Primary osteoarthritis of left knee Rheumatoid arthritis, adult (CMS/HCC) Right flank pain Asthma Sleep apnea Tendinitis of right rotator cuff Venous insufficiency of leg Hypertension Hematuria Calculus of lower urinary tract Meralgia paresthetica of right side Obesity, morbid (CMS/HCC) Cough in adult Sciatica associated with disorder of lumbar spine Vitamin D deficiency Dietary counseling Exercise counseling Abdominal pain Open broken tooth due to trauma without complication Renal artery stenosis (CMS/HCC) 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 Review of Systems Constitutional: Positive for fatigue. Negative for chills and fever. HENT: Positive for congestion. Negative for ear pain, nosebleeds, rhinorrhea, sinus pressure, sore throat and trouble swallowing. Eyes: Negative for pain and discharge. Respiratory: Positive for cough (clear phlegm), chest tightness and shortness of breath. Cardiovascular: Positive for chest pain (Pleuritic). Negative for palpitations and leg swelling. Gastrointestinal: Negative for abdominal pain, blood in stool, constipation, diarrhea and nausea. Endocrine: Negative for polydipsia and polyuria. Genitourinary: Negative for dysuria, frequency, genital sores, pelvic pain and vaginal discharge. Musculoskeletal: Positive for myalgias. Negative for back pain and neck pain. Skin: Negative for rash. Allergic/Immunologic: Negative for environmental allergies. Neurological: Negative for dizziness, seizures, weakness, light-headedness and headaches. Hematological: Negative for adenopathy. Psychiatric/Behavioral: Negative for agitation, behavioral problems, self-injury and suicidal ideas. The patient is nervous/anxious. OBJECTIVE: Vitals: 12/07/24 1153 BP: (!) 168/69 Pulse: 72 Resp: (!) 28 Temp: 95.8 ??F (35.4 ??C) SpO2: 100% Physical Exam HENT: Right Ear: Tympanic membrane and ear canal normal. Left Ear: Tympanic membrane and ear canal normal. Mouth/Throat: Mouth: Mucous membranes are moist. Pharynx: Posterior oropharyngeal erythema present. No oropharyngeal exudate. Eyes: Pupils: Pupils are equal, round, and reactive to light. Cardiovascular: Rate and Rhythm: Regular rhythm. Pulses: Normal pulses. Heart sounds: Normal heart sounds. No murmur heard. Pulmonary: Breath sounds: Examination of the right-upper field reveals wheezing and rhonchi. Examination of the left-upper field reveals wheezing and rhonchi. Examination of the right-middle field reveals wheezing and rhonchi. Examination of the left-middle field reveals wheezing and rhonchi. Examination of the right- lower field reveals wheezing and rhonchi. Examination of the left-lower field reveals wheezing and rhonchi. Wheezing and rhonchi present. Abdominal: General: Bowel sounds are normal. Palpations: Abdomen is soft. Tenderness: There is no abdominal tenderness. Musculoskeletal: General: Normal range of motion. Cervical back: Neck supple. Thoracic back: Tenderness present. Lumbar back: Tenderness present. Comments: Walking with a walker. Skin: General: Skin is warm. Neurological: General: No focal deficit present. Mental Status: She is alert and oriented to person, place, and time. Psychiatric: Mood and Affect: Mood normal. Behavior: Behavior normal. Problem List Items Addressed This Visit Influenza A - Primary Possible complication of Bronchitis, ordered chest X-ray. Continue Tylenol alternating with Ibuprofen. Encouraged fluids po and rest. Advised to go to the ED if symptoms do not improve within 24 hrs of starting treatment. Relevant Orders XR Chest 2 Views Bronchitis Concerned regarding bacterial superimposed infection. Order Chest X-ray to rule out CAP. Start Z-Pack + Albuterol Nebs every 2-6 hrs. She will start Medrol Pack if SOB does not improve with Albuterol Nebs. Increase PO fluids and rest at home. FU on Tuesday with Summer Law Clerk. Will call tomorrow for health status check. Relevant Orders XR Chest 2 Views Chronic obstructive pulmonary disease (CMS/HCC) Currently with COPD exacerbation/bronchitis triggered by Influenza. Continue Spiriva, Singulair and Albuterol. Check with Pulmonology is she should be back on Advair BID. Will consider Influenza immunization on next appointment in 4 weeks. Degeneration of lumbar intervertebral disc Seen by pain clinic, awaiting neurosurgery evaluation next week. Follow Up: Current Outpatient Medications on File Prior to Visit Medication Sig Dispense Refill acetaminophen (Tylenol) 325 MG tablet Take by mouth every 6 (six) hours if needed for mild pain Advair HFA 115-21 MCG/ACT inhaler INHALE 2 PUFF EVERY 12 HOURS FOR 30 DAYS albuterol 108 (90 Base) MCG/ACT inhaler Inhale 2 puffs every 4 (four) hours if needed for wheezing or shortness of breath. 18 g 2 betamethasone valerate (Valisone) 0.1 % cream APPLY TOPICALLY TWICE A DAY 30 g 1 carvedilol (Coreg) 6.25 MG tablet Take 1 tablet (6.25 mg) by mouth with breakfast and with evening meal. 60 tablet 11 docusate sodium (Colace) 100 MG capsule TAKE 1 CAPSULE BY MOUTH TWICE A DAY folic acid (Folvite) 1 MG tablet TAKE [...] INHALE 2 PUFFS BY MOUTH EVERY DAY [DISCONTINUED] fluticasone (Flonase) 50 MCG/ACT nasal spray SPRAY 2 SPRAYS INTO EACH NOSTRIL IN THEMORNING SHAKE GENTLY/PRIME BEFORE 1ST USE&CLEAN TIP 48 mL 0 No current facility-administered medications on file prior to visit. I, Nancy Thorpe, am serving as a scribe to document services personally performed by Dr. Jeni Garcia, based on the patient's response to questions by provider and provider's statements to me. documented in this encounter Miscellaneous Notes * Assessment & Plan Note - Nancy Thorpe MA - 12/07/2024 1:23 PM EST Associated Problem(s): Degeneration of lumbar intervertebral disc Seen by pain clinic, awaiting neurosurgery evaluation next week. * Assessment & Plan Note - Nancy Thorpe MA - 12/07/2024 1:22 PM EST Associated Problem(s): Chronic obstructive pulmonary disease (CMS/HCC) Currently with COPD exacerbation/bronchitis triggered by Influenza. Continue Spiriva, Singulair and Albuterol. Check with Pulmonology is she should be back on Advair BID. Will consider Influenza immunization on next appointment in 4 weeks. * Assessment & Plan Note - Nancy Thorpe MA - 12/07/2024 1:18 PM EST Associated Problem(s): Bronchitis Concerned regarding bacterial superimposed infection. Order Chest X-ray to rule out CAP. Start Z-Pack + Albuterol Nebs every 2-6 hrs. She will start Medrol Pack if SOB does not improve with Albuterol Nebs. Increase PO fluids and rest at home. FU on Tuesday with Summer Law Clerk. Will call tomorrow for health status check. * Assessment & Plan Note - Nancy Thorpe MA - 12/07/2024 1:10 PM EST Associated Problem(s): Influenza A Possible complication of Bronchitis, ordered chest X-ray. Continue Tylenol alternating with Ibuprofen. Encouraged fluids po and rest. Advised to go to the ED if symptoms do not improve within 24 hrs of starting treatment. * Result Encounter Note - Jeni Garcia MD - 12/07/2024 12:15 PM EST Today's CXR showed chronic interstitial lung disease and left-sided atelectasis, no consolidation or changes consistent with pneumonia. I called patient and discussed with her the results of the CXR and advised her to continue with the same POC. She agreed with the plan of care documented in this encounter Plan of Treatment Upcoming Encounters Date Type Department Care Team (Late st Contact Info) Description 05/28/2025 10:00 AM EDT Office Visit [facility] D[facility] [address] [place] [address] Blessing Bah documented as of this encounter Procedures Procedure Name Priority Date/Time Associated Diagnosis Comments XR CHEST 2 VIEWS Routine 12/07/2024 12:4 6 PM EST Influenza A Bronchitis documented in this encounter Results * XR Chest 2 Views (12/07/2024 12:46 PM EST) Anatomical Region Laterality Modality Chest Radiographic Tamiko ging 12/07/2024 12:4 6 PM EST Narrative 12/07/2024 1:32 PM EST ?[facility] ?[address] [facility]. ?[place] [address] ?XRay Report ? Signed ? Patient: Armendariz,Joan R ?MR#: [id number] ?? [id number] ? : 1945 ?Acct:[id number] ? Age/Sex: 79 / F ?ADM Date: 02/21/25 ? Loc: HO.HHCX ? Attending Dr: Jeni Garcia MD ? Ordering Physician: Jeni Garcia MD ?? Date of Service: 12/07/24 ?? Procedure(s): XR chest 2V ?? Accession Number(s): [id number] ? cc: Jeni Garcia MD ? EXAMINATION: ?? XR CHEST ? CLINICAL INFORMATION: ?? Influenza/ worsening cough, ro pneumonia ? COMPARISON: ?? November 29, 2024. ? TECHNIQUE: ?? 2 views of the chest were obtained. ? FINDINGS: ?? [Reticular pattern. ?? Linear opacities in the left hemithorax. No consolidation pleural ?? effusion or pneumothorax. Cardiomediastinal silhouette demonstrates ?? calcified plaque thoracic aorta. ?? Multilevel thoracic and upper lumbar spondylosis. ?? Radiopaque material in a vertebral body of the lower thoracic/upper ?? lumbar spine likely kyphoplasty/vertebroplasty. Metallic prosthesis in ?? the left glenohumeral joint proximal humerus. ?? S-shaped curvature of the thoracolumbar spine. ? XR/XR chest 2V ?? IMPRESSION: ?? Chronic interstitial lung disease. ?? Subsegmental atelectasis versus scarring left lung. ? Electronically signed by: ??Jose Singh MD ??12/07/2024 01:30 PM ?? EST RP ? Dictated By: ?Jose Juarez MD ? Signed By: ?<Electronically signed by Jose Mosquera MD in OV> ? 12/07/24 1330 ? DD/ 1246 ? TD/TT: 12/07/24 1300 ? Manufacture Specialist: ? Procedure Note Willie Maurer - 12/07/2024 [place] [address] XRay Report Signed Patient: Joan Armendariz RMR#: [id number] : 3Acct:[id number] Age/Sex: 79 / FADM Date: 12/07/24 Loc: HO.HHCX Attending Dr: Jeni Garcia MD Ordering Physician: Jeni Garcia MD Date of Service: 12/07/24 Procedure(s): XR chest 2V Accession Number(s): [id number] cc: Jeni Garcia MD EXAMINATION: XR CHEST CLINICAL INFORMATION: Influenza/ worsening cough, ro pneumonia COMPARISON: November 29, 2024. TECHNIQUE: 2 views of the chest were obtained. FINDINGS: [Reticular pattern. Linear opacities in the left hemithorax. No consolidation pleural effusion or pneumothorax. Cardiomediastinal silhouette demonstrates calcified plaque thoracic aorta. Multilevel thoracic and upper lumbar spondylosis. Radiopaque material in a vertebral body of the lower thoracic/upper lumbar spine likely kyphoplasty/vertebroplasty. Metallic prosthesis in the left glenohumeral joint proximal humerus. S-shaped curvature of the thoracolumbar spine. XR/XR chest 2V IMPRESSION: Chronic interstitial lung disease. Subsegmental atelectasis versus scarring left lung. Electronically signed by: Jose Singh MD 12/07/2024 01:30 PM EST RP Dictated By: Jose Juarez MD Signed By: <Electronically signed by Jose Mosquera MDin OV> 12/07/24 1330 DD/ 1246 TD/TT: 12/07/24 1300 Manufacture Specialist: Jeni Garcia MD IMG XR PROCEDURES Final Result documented in this encounter Visit Diagnoses Diagnosis Influenza A- Primary Influenza with other respiratory manifestations Bronchitis Bronchitis, not specified as acute or chronic Pulmonary emphysema, unspecified emphysema type (CMS/HCC) Degeneration of intervertebral disc of lumbar region with discogenic back pain documented in this encounter Additional Health Concerns Assessment Noted Time PHQ-9 Depression Total Score: 0 11/16/19 23 10:53 AM EST documented as of this encounter Care Teams Underwriting Assistant Relationship Specialty Start Date End Date Jeni Garcia MD [address] [place] [phone] PCP - General Family Medicine 12/16/15 documented as of this encounter
--- OUTSIDE RECORDS SUMMARY | 2024-12-10 11:58 | XMS_ITS | Clinical Summary ---
Author Organization [address] [facility] Address [address] [place] [address] Phone Care Team Providers Care Field Services Analyst Name Role Phone Jeni Garcia MD Primary Care Provider + [phone] Allergies Active Allergy Reactions Criticality Noted Date [...] - 11/26/2024 11:59 PM EST Hospital Encounter [facility] Ultrasound [address] [place] [phone] Localized swelling of right lower leg Discharge Disposition: Home or Self Care 11/26/2024 1:30 PM EST Office Visit [facility] - [place] [address] [facility] [address] [place] [phone] Kp Lyn, DPM Localized swelling of right [...] AM EST Office Visit [facility] - [place] [address] [phone] Eloisa Torres NP Post-traumatic osteoarthritis of left knee (Primary Dx); History of total right knee replacement (TKR); Personal history of DVT (deep vein thrombosis) 11/14/2024 1:40 PM EST Office Visit Gastroenterology - [address] [phone] Jing Fields NP Gastroesophageal reflux disease, unspecified whether esophagitis present (Primary Dx) 11/14/2024 Telephone Gastroenterology - [address] [phone] Jessy Aguila MA 10/31/2024 Telephone Gastroenterology - [address] [phone] Emma Leonard MA 10/31/2024 Telephone Gastroenterology - [address] [phone] Emma Leonard MA 10/12/2024 Telephone Gastroenterology - [address] [phone] Jessy Aguila MA 10/04/2024 Lab Requisition [facility] - Main Lab 299 [facility] [place] [phone] Samy Becerril MD 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 09/20/2024 Telephone Gastroenterology - [address] [phone] Samy Becerril MD from Last 3 Months [...] PM EDT Office Visit Orthopedic Surgery - [place] [address] [phone] Lazaro Saleh MD [address] [address] Health Maintenance Due Date Last Done Comments [...] Signed Date: 11/26/2024 16:32 ET Workstation ID: [id number] Transcribed By: Self Edit Transcribed Date: 11/26/2024 [...] Signed Date: 11/26/2024 16:32 ET Workstation ID: [id number] Transcribed By: Self Edit Transcribed Date: 11/26/2024 16:32 ET us Kp Lyn DPM CV VASCULAR PROCEDURES Fi nal Result * XR Knee 4+ Views Left (11/15/2024 10:43 AM EST) Anatomical Region Laterality Modality Lower Extremities, Knee Left Computed Radiography Narrative 11/15/2024 11:28 AM EST Date of Visit: 11/15/2024 Reason for visit: ?? Left knee pain Views: AP, Lateral, Silvestre, [place] left knee Findings: On AP view there [...] glandular epithelium identified. 10/05/2024 12:26 PM EST [facility] Clinical Information Heartburn,esophag eal reflux symptoms that persist despite appropriate therapy Finding:R/O oliver's 10/05/2024 12:[address] [facility] Gross Description A. Esophagus, distal esophagus [...] on one slide. 10/05/2024 12:26 PM EST [facility] Disclaimer Unless otherwise specified, all tissue is 10% NB formalin fixed and paraffin embedded. 10/05/2024 12:26 PM EST [facility] Tissue Esophageal structure / Unknown 10/03/2024 10/04/2024 5:36 AM EST Tissue specimen (specimen) Esophageal structure / Unknown 10/03/2024 10/04/2024 5:36 AM EST us Samy Becerril MD LAB PATHOLOGY ORDERABLES Fi nal Result [facility] [address] [place] [address], from Last 3 Months Insurance MEDICAID - [place] [employer] MEDICARE Advance Directives Documents on File Type Date Recorded Patient Boiler Blower Expl anation Health Care Decision (hx) 03/27/2019 [...] DIRECTIVE Health Care Decision (hx) 03/27/2019 AD ECJA DIRECTIVE Health Care Decision (hx) 03/27/2019 AD CEJA DIRECTIVE Health Care Decision (hx) 03/27/2019 AD CEJA DIRECTIVE Health Care Decision (hx) 03/27/2019 AD CEJA DIRECTIVE Health Care Decision (hx) 03/27/2019 AD CEJA DIRECTIVE Care Teams Field Services Analyst Relationship Specialty Start Date End Date Jeni Garcia MD [address] [place] [phone] PCP - General 05/19/21
--- OUTSIDE RECORDS SUMMARY | 2024-12-10 11:58 | XMS_ITS | Encounter Summary ---
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 250 [place] [address] documented as of this encounter Procedures Procedure [...] no glandular epithelium identified. 10/05/2024 12:26 PM [facility] Clinical Information Heartburn,esophag eal reflux symptoms that persist despite appropriate therapy Finding:R/O oliver's 10/05/2024 12:26 PM [facility] Gross Description A. Esophagus, distal [...] on one slide. 10/05/2024 12:[address] [facility] Disclaimer Unless otherwise specified, all tissue is 10% NB formalin fixed and paraffin embedded. 10/05/2024 12:[address] [facility] Tissue Esophageal structure / Unknown 10/03/2024 10/04/2024 5:36 AM EST Tissue specimen (specimen) Esophageal structure / Unknown 10/03/2024 10/04/2024 5:36 AM EST us Samy Becerril MD LAB PATHOLOGY ORDERABLES Fi nal Result 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
--- OUTSIDE RECORDS SUMMARY | 2024-12-10 11:58 | XMS_ITS | Encounter Summary ---
Author Organization [employer] Address [address] [facility] 7t [place] [address] Care Team Providers Care Board Of Directors Name Role Phone Jeni Garcia MD Primary Care Provider + Reason for Visit * Reason Onset Date Comments Chart prep 12/05/2024 Encounter Details Date Type Department Care Team ([facility] st Contact Info) Description 12/05/[address] [facility] MEDICINE [address] [place], [place] [phone] Jeni Garcia MD [address] [place], [place] [phone] Chart prep Social History Tobacco Use Types [...] Description 05/28/2025 10:00 AM EDT Office Visit [facility] ADULT DENTAL [address] [place] [address] Blessing Bah documented as of this encounter Visit Diagnoses Not on filedocumented in this encounter Additional Health Concerns Assessment Noted Time PHQ-9 Depression Total Score: 0 11/16/19 23 10:53 AM EST documented as of this encounter Care Teams Board Of Directors Relationship Specialty Start Date End Date Jeni Garcia MD [address] [place] [address] PCP - General Family Medicine 12/16/15 documented as of this encounter
--- OUTSIDE RECORDS SUMMARY | 2024-12-10 11:59 | XMS_ITS | Encounter Summary ---
Author Organization [facility] Address [address] [place] [address] Care Team Providers Care Head Animal Keeper Name Role Phone Jeni Garcia MD Primary Care Provider + [phone] Reason for Visit * Reason Comments Pain Encounter Details Date Type Department Care Team (Latest Contact Info) Description 11/15/2024 11:00 AM EST Office Visit Orthopedic Surgery - [place] [address] [phone] Eloisa Torres NP [address] [address] Post-traumatic osteoarthritis of left knee (Primary Dx); [...] 11/15/2024 11:00 AM EST [facility] Date: 11/15/24 CHIEF COMPLAINT: Pain of the Left Knee had concerns including Pain of the Left Knee. IDENTIFIER: Joan Armendariz is a 79 y.o. old female. Primary Care Physician: Jeni Garcia MD Soccer Coach: Yamil Pate #[id number] [facility] Joan Armendariz is a 79 y.o. [...] injections within the last year through her glue spreader office, Dr. Novak.Unfortunately she did not find [...] Left knee pain Views: AP, Lateral, Silvestre, [place] left knee Findings: On AP view there [...] Thank you for your referral. Karol Torres AGING DEPARTMENT SUPERVISOR 175 [facility], [address] [place] [address] W: [phone] F: [phone] Portions of this note were dictated utilizing the speech recognition software. Cosigned by Lazaro Saleh MD at 11/15/2024 11:59 AM EST documented in this encounter Plan of Treatment Upcoming Encounters Date Type Department Care Team (Late st Contact Info) Description 01/02/2025 2:30 PM EDT Office Visit Orthopedic Surgery - [place] [address] [phone] Lazaro Saleh MD [address] [address] documented as of this encounter Visit Diagnoses [...] MEAL added in this encounter Care Teams Head Animal Keeper Relationship Specialty Start Date End Date Jeni Garcia MD 230 [facility] 1 [place] [address] PCP - General 05/19/21 documented as of this encounter
--- OUTSIDE RECORDS SUMMARY | 2024-12-10 11:59 | XMS_ITS | Encounter Summary ---
Author Organization [facility] Address [address] [place] [address] Care Team Providers Care Interior Block Wirer Name Role Phone Jeni Garcia MD Primary Care Provider + [phone] Reason for Visit * Reason Comments Results EGD Encounter Details Date Type Department Care Team (Latest Contact Info) Description 11/14/2024 1:40 PM EST Office Visit Gastroenterology - [address] [facility] [address] [place] [phone] Jing Fields, PEDIATRIC SURGEON [address] [place] [phone] Gastroesophageal reflux disease, unspecified whether esophagitis present [...] this encounter Progress Notes * Jing Fields, PEDIATRIC SURGEON - 11/14/2024 1:40 PM EST CHIEF COMPLAINT: [...] in the patient's care. Board Certified Gastroenterology [facility] Medical [facility] W [phone] [place] [phone] [email or web address] Jing Fields NP documented in this encounter Plan of Treatment Upcoming Encounters Date Type Department Care Team (Late st Contact Info) Description 01/02/2025 2:30 PM EDT Office Visit Orthopedic Surgery - [place] [address] [phone] Lazaro Saleh MD [address] [address] documented as of this encounter Visit Diagnoses Diagnosis Gastroesophageal reflux disease, unspecified whether esophagitis present- Primary documented in this encounter Care Teams Interior Block Wirer Relationship Specialty Start Date End Date Jeni Garcia MD [address] [phone] PCP - General 05/19/21 documented as of this encounter
--- OUTSIDE RECORDS SUMMARY | 2024-12-10 11:59 | XMS_ITS | Encounter Summary ---
Author Organization [employer] Address 75 [facility] 7t [place] [address] Care Team Providers Care Instrument Technician Name Role Phone Jeni Garcia MD Primary Care Provider + Reason for Visit * Reason Onset Date Comments ER Follow-up 12/04/2024 Encounter Details Date Type Department Care Team ([facility] st Contact Info) Description 12/04/2024 Telephone [facility] 230 [place], [place] [phone] Jeni Garcia MD 230 [place], [place] [phone] ER Follow-up Social History Tobacco Use Types [...] ED visit on : Date: 11/29/2024 Hospital: [facility] Seen for: Flu , Cough Symptomatic No *if yes message should go to Triage Patient advised will forward to team nurse for follow up documented in this encounter Plan of Treatment Upcoming Encounters Date Type Department Care Team (Late st Contact Info) Description 05/28/2025 10:00 AM EDT Office Visit [facility] ADULT DENTAL 230 [place] [address] Blessing Bah documented as of this encounter Visit Diagnoses Not on filedocumented in this encounter Additional Health Concerns Assessment Noted Time PHQ-9 Depression Total Score: 0 11/16/19 23 10:53 AM EST documented as of this encounter Care Teams Instrument Technician Relationship Specialty Start Date End Date Jeni Garcia MD 230 [place] [address] PCP - General Family Medicine 12/16/15 documented as of this encounter
--- OUTSIDE RECORDS SUMMARY | 2024-12-10 11:59 | XMS_ITS | Encounter Summary ---
Author Organization [facility] Address 75 [facility] 7t [place] [address] Care Team Providers Care Special Education Inclusion Teacher Name Role Phone Jeni Garcia MD Primary Care Provider + Encounter Details Date Type Department Care Team (Late Contact Info) Description 02/25/2023 Orders Only [facility]ICINE [address] [place] [phone] Jeni Garcia MD 230 [place] [address] Obstructive sleep apnea syndrome (Primary Dx) Social [...] Description 05/28/2025 10:00 AM EDT Office Visit [facility] ADULT DENTAL 230 [place] [address] Blessing Bah documented as of this encounter Visit Diagnoses Diagnosis Obstructive sleep apnea syndrome- Primary Obstructive sleep apnea (adult) (pediatric) documented in this encounter Additional Health Concerns Assessment Noted Time PHQ-9 Depression Total Score: 0 11/16/19 23 10:53 AM EST documented as of this encounter Care Teams Special Education Inclusion Teacher Relationship Specialty Start Date End Date Jeni Garcia MD 230 [place] [address] PCP - General Family Medicine 12/16/15 documented as of this encounter
--- OUTSIDE RECORDS SUMMARY | 2024-12-10 11:59 | XMS_ITS | Encounter Summary ---
Author Organization [employer] Address [address] [facility] [address] 7t [place] [address] Care Team Providers Care Financial Recruiter Name Role Phone Jeni Garcia MD Primary Care Provider + Encounter Details Date Type Department Care Team (Late st Contact Info) Description 12/08/2024 Telephone [facility] [address] [place] [address] [phone] Jeni Garcia MD 230 [place], [place] [phone] Social History Tobacco Use Types Packs/Day Years [...] encounter Miscellaneous Notes * Telephone Encounter - Tomasa Leach RN - 12/08/2024 9:12 AM EST ----- Message from Jeni Garcia MD sent at 12/07/2024 1:32 PM EST ----- Patient seen today with bronchitis, sp Influenza URI (dx at [facility] ED on 11/29). Please call tomorrow(12/08/24) re health status check, I started her today on z- pack for bronchitis and she has medrol packas well, see today's note. TC placed to pt daughter Kimberly on HIPPA who reports that pt is still coughing a lot confirmed thatmedications were picked up yesterday and pt is doing breathing treatments. Advised to monitor patient if any respiratory distress go to nearest ED an if pt is not feeling better by tomorrow which will be 3rd day on Z-pack bring pt back to be reassessed. documented in this encounter Plan of Treatment Upcoming Encounters Date Type Department Care Team (Late st Contact Info) Description 05/28/2025 10:00 AM EDT Office Visit [facility] ADULT DENTAL 230 [place] [address] Blessing Bah documented as of this encounter Visit Diagnoses Not on filedocumented in this encounter Additional Health Concerns Assessment Noted Time PHQ-9 Depression Total Score: 0 11/16/19 23 10:53 AM EST documented as of this encounter Care Teams Financial Recruiter Relationship Specialty Start Date End Date Jeni Garcia MD [address] [place] [phone] PCP - General Family Medicine 12/16/15 documented as of this encounter
--- OUTSIDE RECORDS SUMMARY | 2024-12-10 11:59 | XMS_ITS | Encounter Summary ---
Author Organization [employer] Address 75 [facility] 7t [place] [address] Care Team Providers Care Manager Strategy Name Role Phone Jeni Garcia MD Primary [...] 7:17 PM EST Patient was apparently in [place] emergency room on 11/29 with flu and probably bronchitis. Please call her on Tuesday for health status check and see if she needs additional follow-up or if she is recovering well. documented in this encounter Plan of Treatment Upcoming Encounters Date Type Department Care Team (Late st Contact Info) Description 05/28/2025 10:00 AM EDT Office Visit [facility] ADULT DENTAL 230 [place] [address] Blessing Bah documented as of this encounter [...] EST Narrative 11/29/2024 8:00 PM EST ? [place] [facility] ?[address] ?[place] [address] ?XRay Report ? Signed ? Patient: Armendariz,Joan R ?MR#: [id number] ?? [id number] ? : 1945 ?Acct:[id number] ? Age/Sex: 79 / F ?ADM Date: 11/29/24 ? Loc: HO.ED ? Attending Dr: ? Ordering Physician: My Forrest NP ?? Date of Service: 11/29/24 ?? Procedure(s): XR chest 2V ?? Accession Number(s): [id number] ? cc: Jeni Garcia MD; My Forrest NP ? CLINICAL HISTORY: cough, chest pain ? 2 views chest ? Comparison: CR/KS/SR - XR CHEST 1V - 06/28/24 12:50 [...] ? DD/ 58 ? TD/TT: 11/29/241958 ? Saturator: ? Procedure Note Willie Maurer - 11/29/[address] [address] XRay Report Signed Patient: Joan Armendariz RMR#: [id number] : 3Acct:[id number] Age/Sex: 79 / FADM Date: 11/29/24 Loc: HO.ED Attending Dr: Ordering Physician: My Forrest NP Date of Service: 11/29/24 Procedure(s): XR chest 2V Accession Number(s): [id number] cc: Jeni Garcia MD; My Forrest NP CLINICAL HISTORY: cough, chest pain 2 views chest Comparison: CR/KS/SR - XR CHEST 1V - 06/28/24 12:50 [...] in OV> 11/29/241958 DD/ 58 TD/TT: 11/29/241958 Saturator: [facility] External Provider IMG XR PROCEDURES Edited Result - Final * (ABNORMAL) SARS-CoV-2 RNA, Influenza A/B, and RSV RNA, Ql NAAT (11/29/2024 7:15 PM EST) Influenza A PCR POSITIVE(A) Negative [facility] Influenza B PCR NEGATIVE Negative [facility] Resp Syncy Virus RNA Qual PCR NEGATIVE Negative [facility] SARS COV2 PCR NEGATIVE Negative [facility] Comment:All test results mus t be [...] use by authorized laboratories.Testing performed on the [employer] GeneXpert utilizingreal-time RT-PCR.All SARS CoV2 and positive influenza A/B results arereported to [facility]. 11/29/2024 7:15 PM EST 11/29/2024 7:17 PM EST Generic External Data Provider LAB MICROBIOLOGY - GENERAL ORDERABLES Final Result Performing Organization Address [facility]/ZIP Co de Phone Number [facility] [address] [place] [address] [phone] * High Sensitivity Troponin I (11/29/2024 7:06 PM EST) Pathologist [facility] TROPONIN I HIGH SENSITIVITY 4.3 <3.5 - 17.0 ng/L [facility] Comment:The [place] high sens itivity Troponin-I results should beused in conjunction with other diagnostic information suchas ECG, clinical observations and information, and patientsymptoms to aid in the diagnosis of [place]. 11/29/2024 7:06 PM EST 11/29/2024 7:10 PM EST us Generic External Data Provider LAB BLOOD ORDERAB LES Final Result Performing Organization Address [facility] Co de Phone Number [facility] [address] [place] [address] [phone] * (ABNORMAL) Comprehensive Metabolic Panel (11/29/2024 7:06 PM EST) Pathologist [facility] Sodium 137 135 - 145 mmol/L [facility] Potassium 4.0 3.3 - 5.1 mmol/L [facility] Chloride 106 96 - 108 mmol/L [facility] Carbon Dioxide 23 22 - 29 mmol/L [facility] Anion Gap 12 12 - 20 [facility] Urea Nitrogen (BUN) 11 9 - 16 mg/dL [facility] Creatinine, Serum 1.02 0.5 - 1.4 mg/dL [facility] Creatinine Clr Calc Pharmacy 38.3 [facility] Comment:Provided height and weight: 147.32 cm,78.8 kg.eGFR (calculated from the MDRD study equation) and eCrCl(calculated from the Cockcroft-Gault equation) are based ondifferent parameters and may not yield comparable results.If eCrCl result is absurd, please check patient'sheight/weight. Estimated Glomerular Filt Rate 52 [facility] Comment:Chronic Kidney Disea se: Estimated GFR < 60 mL/min/1.63a4Mscvub Kidney Disease: Estimated GFR < 15 mL/min/1.73m2 Glucose 109 60 - 115 mg/dL [facility] Calcium 8.9 8.4 - 10.2 mg/dL [facility] Bilirubin, Total 0.3 0.0 - 1.0 mg/dL [facility] Aspartate Amino Transferase 35(H) 5 - 31 U/L [facility] Alanine Aminotransferase 24 0 - 31 U/L [facility] Total Protein 8.0 6.5 - 8.0 g/dL [facility] Albumin Level 3.8 3.5 - 5.0 g/dL [facility] Alkaline Phosphatase 64 39 - 117 U/L [facility] 11/29/2024 7:06 PM EST 11/29/2024 7:10 PM EST us Generic External Data Provider LAB BLOOD ORDERAB LES Final Result Performing Organization Address City/[facility] Co de Phone Number [facility] [address] [place] [phone] * (ABNORMAL) Prothrombin Time-INR (11/29/2024 7:06 PM EST) Prothrombin Time 12.6(H) 10.9 - 12.4 SEC [facility] INTERNATIONAL NORM RATIO 1.1 0.9 - 1.1 [facility] Comment:INTERNATIONAL NORMAL IZED RATIO (INR) [...] ORDERAB LES Final Result Performing Organization Address City/[facility]/ZIP Co de Phone Number [facility] [address] [place], [place] [phone] * (ABNORMAL) CBC auto differential (11/29/2024 7:06 PM EST) White Blood Count 6.9 4.8 - 10.8 X10*3/uL [facility] Red Blood Count 4.37 4.20 - 5.50 X10*6/uL [facility] Hemoglobin 11.8(L) 12.0 - 16.0 g/dl [facility] Hematocrit 37.2 37.0 - 47.0 % [facility] Mean Corpuscular Volume 85.1 80.0 - 98.0 fL [facility] Mean Corpuscular Hemoglobin 27.0 27.0 - 33.0 pg [facility] Mean Corpuscular HGB Conc 31.7 31.0 - 35.0 g/dl [facility] Red Cell Distribution Width 15.8 11.0 - 16.0 % [facility] Platelet Count 177 160 - 400 X10*3/uL [facility] Mean Platelet Volume 11.6 9.4 - 12.3 fL [facility] Neutrophils Percent Auto 72.5 45 - 73 % [facility] Imm Gran Pct Auto 0.6(H) 0.0 - 0.4 % [facility] Lymphocytes Percent Auto 11.7(L) 20 - 40 % [facility] Monocytes Percent Auto 9.9 2 - 11 % [facility] Eosinophils Percent Auto 3.9 0 - 4 % [facility] Basophils Percent Auto 1.4 0 - 2 % [facility] NRBC Pct Auto 0.0 0.0 - 0.2 /100WBC [facility] Neutrophils Absolute Auto 5.0 2.0 - 8.3 x10*3/uL [facility] Imm Gran Abs Auto 0.04(H) 0.00 - 0.03 X10*3/uL [facility] Lymphocytes Absolute Auto 0.8(L) 1.2 - 4.9 X10*3/uL [facility] Monocytes Absolute Auto 0.7 0.1 - 1.2 X10*3/uL [facility] Eosinophils Absolute Auto 0.3 0.0 - 0.4 X10*3/uL [facility] Basophils Absolute Auto 0.1 0.0 - 0.2 X10*3/uL [facility] NRBC Abs Auto 0.000 0.0 - 0.012 X10*3/uL [facility] 11/29/2024 7:06 PM EST 11/29/2024 7:10 PM EST us Generic External Data Provider LAB BLOOD ORDERAB LES Final Result [facility] [address] [place] [phone] documented in this encounter Visit Diagnoses Not on filedocumented in this encounter Additional Health Concerns Assessment Noted Time PHQ-9 Depression Total Score: 0 11/16/19 23 10:53 AM EST documented as of this encounter Care Teams Manager Strategy Relationship Specialty Start Date End Date Jeni Garcia MD 230 [place] [address] PCP - General Family Medicine 12/16/15 documented as of this encounter
--- OUTSIDE RECORDS SUMMARY | 2024-12-10 11:59 | XMS_ITS | Encounter Summary ---
Author Organization [employer] Address 75 [facility] 7t [place] [address] Care Team Providers Care Lean Leader Name Role Phone Jeni Garcia MD Primary Care Provider + Reason for Visit * Reason Comments Med Refill Encounter Details Date Type Department Care Team (Late st Contact Info) Description 10/19/[address] [facility] MEDICINE 230 [place], [place] [phone] Jayshree Andrade DO 230 [place], [place] [phone] Social History Tobacco Use Types Packs/Day Years [...] 10:00 AM EDT Office Visit [facility] ADULT DENTAL 230 [place] [address] Blessing Bah documented as of this encounter Visit Diagnoses Not on filedocumented in this encounter Additional Health Concerns Assessment Noted Time PHQ-9 Depression Total Score: 0 11/16/19 23 10:53 AM EST documented as of this encounter Care Teams Lean Leader Relationship Specialty Start Date End Date Jeni Garcia MD 230 [place] [address] PCP - General Family Medicine 12/16/15 documented as of this encounter
--- OUTSIDE RECORDS SUMMARY | 2024-12-10 11:59 | XMS_ITS | Encounter Summary ---
Author Organization [employer] Address 75 [facility] 7t [place] [address] Care Team Providers Care Dev Technical Mgr Name Role Phone Jeni Garcia MD Primary Care Provider + Reason for Visit * Reason Onset Date Comments C pap request 01/26/2023 Encounter Details Date Type Department Care Team ([facility] st Contact Info) Description 01/26/2023 Telephone [facility]INE 230 [place], [place] [phone] Jeni Garcia MD 230 [place], [place] [phone] C pap request Social History Tobacco Use [...] on CPAP machine. Please contact pt at [phone] (Serbian speaker) * Telephone Encounter - Aleshia Stark [...] Description 05/28/2025 10:00 AM EDT Office Visit [facility] ADULT DENTAL 230 [place] [address] Blessing Bah documented as of this encounter Visit Diagnoses Not on filedocumented in this encounter Additional Health Concerns Assessment Noted Time PHQ-9 Depression Total Score: 0 11/16/19 23 10:53 AM EST documented as of this encounter Care Teams Dev Technical Mgr Relationship Specialty Start Date End Date Jeni Garcia MD 230 [place] [address] PCP - General Family Medicine 12/16/15 documented as of this encounter
--- OUTSIDE RECORDS SUMMARY | 2024-12-10 11:59 | XMS_ITS | Encounter Summary ---
Author Organization [employer] [facility] Address 75 [facility] 7t [place] [address] Care Team Providers Care Care Rep Name Role Phone Jeni Garcia MD Primary Care Provider + Reason for Visit * Reason Onset Date Comments C Pap 02/22/2023 Encounter Details Date Type Department Care Team ([facility] st Contact Info) Description 02/22/2023 Telephone [facility] MEDICINE 230 [place], [place] [phone] Jeni Garcia MD 230 [place], [place] [phone] C Pap Social History Tobacco Use Types [...] If any questions please contact pt at [phone] (serbian speaking) * Telephone Encounter - Temi Bojorquez - 02/22/2023 2:44 PM EDT Tc from Pt requesting a script for Cpap Machine talk on appt on 02/15 with provider. Pt give fax number to send script to [facility] # [phone]. PCP Dr. Garcia documented in this encounter Plan of Treatment Upcoming Encounters Date Type Department Care Team (Late st Contact Info) Description 05/28/2025 10:00 AM EDT Office Visit [facility] ADULT DENTAL [address] [place] [address] Blessing Bah documented as of this encounter Visit Diagnoses Not on filedocumented in this encounter Additional Health Concerns Assessment Noted Time PHQ-9 Depression Total Score: 0 11/16/19 10:53 AM EST documented as of this encounter Care Teams Care Rep Relationship Specialty Start Date End Date Jeni Garcia MD 230 [place] [address] PCP - General Family Medicine 12/16/15 documented as of this encounter
--- OUTSIDE RECORDS SUMMARY | 2024-12-10 11:59 | XMS_ITS | Encounter Summary ---
Author Organization [employer] Address 75 [facility] 7t [place] [address] Care Team Providers Care Guide Dog Trainer Name Role Phone Jeni Garcia MD Primary Care Provider + Reason for Visit * Reason Onset Date Comments Status Check ED visit 12/04/2024 Encounter Details Date Type Department Care Team ([facility] st Contact Info) Description 12/04/2024 Telephone [facility] MEDICINE 230 [place], [place] [phone] Jeni Garcia MD 230 [place], [place] [phone] Status Check ED visit Social History Tobacco [...] 10:13 AM EST TC placed to patient [phone] in regards to below message. Patient reports [...] together. Patient informed per ED note Use rlut-rhd-wjyxevq ibuprofen 600 mg taken every 6 hours with food, alternated with qswp-kuk-mbqorez Tylenol 1000 mg takenevery 8 hours . [...] PM EST ----- Patient was apparently in [place] emergency room on 11/29 with flu and probably bronchitis. Please call her on Tuesday for health status check and see if she needs additional follow-up or if she is recovering well. documented in this encounter Plan of Treatment Upcoming Encounters Date Type Department Care Team (Late st Contact Info) Description 05/28/2025 10:00 AM EDT Office Visit [facility] ADULT DENTAL 230 [place] [address] Blessing Bah documented as of this encounter Visit Diagnoses Not on filedocumented in this encounter Additional Health Concerns Assessment Noted Time PHQ-9 Depression Total Score: 0 11/16/19 10:53 AM EST documented as of this encounter Care Teams Guide Dog Trainer Relationship Specialty Start Date End Date Jeni Garcia MD 230 [place] [address] PCP - General Family Medicine 12/16/15 documented as of this encounter
--- OUTSIDE RECORDS SUMMARY | 2024-12-10 11:59 | XMS_ITS | Encounter Summary ---
Author Organization [facility] Address [address] [place] [address] Care Team Providers Care Independent Insurance Adjuster Name Role Phone Jeni Garcia MD Primary Care Provider + [phone] Reason for Referral * Imaging (Routine) - Pending Review Specialty Diagnoses / Procedures Referred By Contac t Referred To Contact Diagnoses Localized swelling of right lower leg Procedures Vascular US duplex lower extremity venous right Kp Lyn DPM [address] [address] Phone: tel: fax: [facility] Referral ID Status Reason Start Date Expiration Date V isits Requested Visits Authorized [id number] Pending Review 11/26/2024 11/26/2025 1 1 Reason for Visit * Imaging (Routine) - Pending Review Specialty Diagnoses / Procedures Referred By Contac t Referred To Contact Diagnoses Localized swelling of right lower leg Procedures Vascular US duplex lower extremity venous right Kp Lyn DPM [address] [address] Phone: tel: fax: [facility] Referral ID Status Reason Start Date Expiration Date V isits Requested Visits Authorized [id number] Pending Review 11/26/2024 11/26/2025 1 1 Encounter Details Date Type Department Care Team (Latest Contact Info) Description 11/26/2024 3:53 PM EST - 11/26/2024 11:59 PM EST Hospital Encounter [facility] Ultrasound [address] [place] [address] Localized swelling of right lower [...] PM EDT Office Visit Orthopedic Surgery - [place] [phone] [facility] [address] [place] [phone] Lazaro Saleh MD 175 [facility] [address] [place] [address] documented as of this encounter Procedures Procedure [...] Signed Date: 11/26/2024 16:32 ET Workstation ID: [id number] Transcribed By: Self Edit Transcribed Date: 11/26/2024 [...] Signed Date: 11/26/2024 16:32 ET Workstation ID: [id number] Transcribed By: Self Edit Transcribed Date: 11/26/2024 16:32 ET us Kp Lyn DPM CV VASCULAR PROCEDURES Fi nal Result documented in this encounter Visit Diagnoses Diagnosis Localized swelling of right lower leg documented in this encounter Care Teams Independent Insurance Adjuster Relationship Specialty Start Date End Date Jeni Garcia MD [address] [phone] PCP - General 05/19/21 documented as of this encounter
--- OUTSIDE RECORDS SUMMARY | 2024-12-10 11:59 | XMS_ITS | Encounter Summary ---
Author Organization [employer] Address 75 [facility] 7t [place] [address] Care Team Providers Care Seed Core Operator Name Role Phone Jeni Garcia MD [...] 05/28/2025 10:00 AM EDT Office Visit [facility] ADULT DENTAL 230 [place] [address] Blessing Bah documented as of this encounter Visit Diagnoses Not on filedocumented in this encounter Additional Health Concerns Assessment Noted Time PHQ-9 Depression Total Score: 0 11/16/19 23 10:53 AM EST documented as of this encounter Care Teams Seed Core Operator Relationship Specialty Start Date End Date Jeni Garcia MD 230 [place] [address] PCP - General Family Medicine 12/16/15 documented as of this encounter
--- OUTSIDE RECORDS SUMMARY | 2024-12-10 11:59 | XMS_ITS | Encounter Summary ---
Author Organization [facility] Address [address] [place] [address] Care Team Providers Care Tattoo And Body Artist Name Role Phone Jeni Garcia MD Primary Care Provider + [phone] Reason for Referral * Imaging (Routine) - Pending Review Specialty Diagnoses / Procedures Referred By Contluciano t Referred To Contact Diagnoses Localized swelling of right lower leg Procedures Vascular US duplex lower extremity venous right Kp Lyn DPM [address] [address] Phone: tel: fax: [facility] Referral ID Status Reason Start Date Expiration Date V isits Requested Visits Authorized [id number] Pending Review 11/26/2024 11/26/2025 1 1 Reason for Visit * Reason Comments Follow-up Casimiro foot pain Encounter Details Date Type Department Care Team (Late st Contact Info) Description 11/26/2024 1:30 PM EST Office Visit Orthopedic Surgery - [place] [address] [address] Kp Lyn DPM [address] [address] Localized swelling of right lower leg (Primary [...] (1000 UT) Cap Take by mouth. Biotin 60484 MCG Tab Take by mouth. famotidine (PEPCID) [...] to rule out DVT Patient sent to [facility] for ultrasound Discussed with patient ultrasound [...] PM EDT Office Visit Orthopedic Surgery - [place] [address] 175 [facility] [address] [place] [phone] Lazaro Saleh MD 175 [facility] [address] [place] [address] documented as of this encounter Results * [...] Signed Date: 11/26/2024 16:32 ET Workstation ID: [id number] Transcribed By: Self Edit Transcribed Date: 11/26/2024 [...] -------- FINAL REPORT -------- Dictated By: Sandy Celaning Dictated Date: 11/26/2024 16:32 ET Assigned Physician: Sandy Cleaning Reviewed and Electronically Signed By: Sandy Cleaning Signed Date: 11/26/2024 16:32 ET Workstation ID: [id number] Transcribed By: Self Edit Transcribed Date: 11/26/2024 [...] leg documented in this encounter Care Teams Tattoo And Body Artist Relationship Specialty Start Date End Date Jeni Garcia MD [address] [place] [address] [place] [address] PCP - General 05/19/21 documented as of this encounter
--- OUTSIDE RECORDS SUMMARY | 2024-12-10 11:59 | XMS_ITS | Encounter Summary ---
Author Organization [employer] [facility] Address [address] [facility] 7t [place] [address] Care Team Providers Care Realty Specialist Name Role Phone Jeni Garcia MD Primary Care Provider + Encounter Details Date Type Department Care Team (Late Contact Info) Description 04/04/2023 Orders Only [facility] MEDICINE 230 [place] [address] Jeni Garcia MD 230 [place] [address] Social History Tobacco Use Types Packs/Day Years [...] EDT Office Visit [facility] ADULT DENTAL 230 [place] [address] Blessing Bah documented as of this encounter Visit Diagnoses Not on filedocumented in this encounter Additional Health Concerns Assessment Noted Time PHQ-9 Depression Total Score: 0 11/16/19 23 10:53 AM EST documented as of this encounter Care Teams Realty Specialist Relationship Specialty Start Date End Date Jein Garcia MD 230 [place] [address] PCP - General Family Medicine 12/16/15 documented as of this encounter
--- OUTSIDE RECORDS SUMMARY | 2024-12-10 11:59 | XMS_ITS | Encounter Summary ---
Author Organization [employer] [facility] Address 75 [facility] 7t [place] [address] Care Team Providers Care Transit Mixer Operator Name Role Phone Jeni Garcia MD [...] a message asking her to call the [employer] department at ext [phone]. Encounter Details Date Type Department Care Team (Late st Contact Info) Description 11/13/2024 Telephone [facility] MEDICINE 230 [place] [address] Jeni Garcia MD 230 [place] [address] DCF Form (I called to get more information, about a Family Resource Parent Medical Form, from [employer]. The patient needs to state whether she will be an adoptive parent, or will be living in the home of someone who will be an adoptive parent. I reached her voicemail, and left a message asking her to call the [employer] department at ext [phone].) Social History Tobacco [...] to call the forms department at ext [phone]. documented in this encounter Plan of Treatment Upcoming Encounters Date Type Department Care Team (Late st Contact Info) Description 05/28/2025 10:00 AM EDT Office Visit [facility] ADULT DENTAL [address] [place] [address] Blessing Bah documented as of this encounter Visit Diagnoses Not on filedocumented in this encounter Additional Health Concerns Assessment Noted Time PHQ-9 Depression Total Score: 0 11/16/19 23 10:53 AM EST documented as of this encounter Care Teams Transit Mixer Operator Relationship Specialty Start Date End Date Jeni Garcia MD [address] [place] [address] PCP - General Family Medicine 12/16/15 documented as of this encounter
--- OUTSIDE RECORDS SUMMARY | 2024-12-10 11:59 | XMS_ITS | Encounter Summary ---
Author Organization [facility] Address [address] [place] [address] Care Team Providers Care Wire Frame Lampshade Maker Name Role Phone Jeni Garcia MD Primary Care Provider + [phone] Encounter Details Date Type Department Care Team (Late st Contact Info) Description 11/14/2024 Telephone Gastroenterology - 299 [facility] 299 [facility] [address] [place] [address] Jessy Aguila [place] Social History [...] H&P faxed to Dr. Misael Santillan at [phone] documented in this encounter Plan of Treatment Upcoming Encounters Date Type Department Care Team (Late st Contact Info) Description 01/02/2025 2:30 PM EDT Office Visit Orthopedic Surgery - [place] [address] 175 [facility] 250 [place] [phone] Lazaro Saleh MD 175 [facility] 250 [place], [place] [phone] documented as of this encounter Visit Diagnoses Not on filedocumented in this encounter Care Teams Wire Frame Lampshade Maker Relationship Specialty Start Date End Date Jeni Garcia MD [address] [place] [phone] PCP - General 05/19/21 documented as of this encounter
--- OUTSIDE RECORDS SUMMARY | 2024-12-10 11:59 | XMS_ITS | Encounter Summary ---
Author Organization [employer] Address 75 [facility] 7t [place] [address] Care Team Providers Care Ict Business Development Manager Name Role Phone Jeni Garcia MD Primary Care Provider + Reason for Visit * Reason Onset Date Comments Nurse Triage 11/28/2024 Encounter Details Date Type Department Care Team ([facility] st Contact Info) Description 11/28/2024 Telephone [facility] MEDICINE 230 [place], [place] [phone] Jeni Garcia MD 230 [place], [place] [phone] Nurse Triage Social History Tobacco Use Types [...] pt to triage, spoke to pt. through [employer]. pt states saw Pain Management this morning [...] 10:00 AM EDT Office Visit [facility] ADULT DENTAL 230 [place] [address] Blessing Bah documented as of this encounter Visit Diagnoses Not on filedocumented in this encounter Additional Health Concerns Assessment Noted Time PHQ-9 Depression Total Score: 0 11/16/19 23 10:53 AM EST documented as of this encounter Care Teams Ict Business Development Manager Relationship Specialty Start Date End Date Jeni Garcia MD 230 [place] [address] PCP - General Family Medicine 12/16/15 documented as of this encounter
--- OUTSIDE RECORDS SUMMARY | 2024-12-10 12:00 | XMS_ITS | Encounter Summary ---
Author Organization [facility] Address [address] [place] [address] 7t [place] [address] Care Team Providers Care Field Captain Name Role Phone Jeni Garcia MD Primary Care Provider + Encounter Details Date Type Department Care Team (Late st Contact Info) Description 09/27/2022 [facility] Only [facility] 230 [place], [place] [phone] Jeni Garcia MD 230 [place], [place] [phone] Social History Tobacco Use Types Packs/Day Years [...] Description 05/28/2025 10:00 AM EDT Office Visit [facility] ADULT DENTAL 230 [place], [place] [phone] Blessing Bah documented as of this encounter Visit Diagnoses Not on filedocumented in this encounter Care Teams Field Captain Relationship Specialty Start Date End Date Jeni Garcia MD 230 [place], [place] [phone] PCP - General Family Medicine 12/16/15 documented as of this encounter
--- OUTSIDE RECORDS SUMMARY | 2024-12-10 12:00 | XMS_ITS | Clinical Summary ---
Author Organization [facility] Address [address] [facility] [address] [place] [address] Phone Care Team Providers Care [employer] Advisor Name Role Phone Jeni Gracia MD Primary Care Provider + [phone] Allergies Active Allergy Reactions Criticality Noted Date [...] Visit [facility] [address] [facility] [address] [place] [address] Luke Quinn MD Hypertension (Primary [...] Visit [facility] [address] [address] Luke Quinn MD [address] [address] Health Maintenance Due Date Last Done Comments [...] Cystatin C 1.12 0.87 - 1.12 mg/L [facility] eGFR by Cystatin C 57(L) >59 mL/min/1.7 3 [facility] 09/25/2024 10:1 6 AM EST 09/25/2024 us Luke Quinn MD LAB BLOOD ORDERABLES Final Result [facility] [address] [place] [address] * Microscopic Examination (09/25/2024 10:16 AM EST) WBC, Urine None seen 0 - 5 /hpf [facility] RBC, Urine None seen 0 - 2 /hpf [facility] Squamous Epithelial, Urine 0-10 0 - 10 /hpf [facility] Casts None seen None seen /lpf [facility] Bacteria, Urine None seen None seen/Few [facility] 09/25/2024 10:1 6 AM EST 09/25/2024 Luke Quinn MD LAB MICROBIOLOGY - GE NERAL ORDERABLES Final Result Performing Organization Address [facility] de Phone Number [facility] [place] [address] [place] [address] * (ABNORMAL) Iron Panel (Fe, TIBC, TSAT) (09/25/2024 10:16 AM EST) [facility] TIBC 417 250 - 450 ug/dL [facility] UIBC 371(H) 118 - 369 ug/dL [facility] Iron 46 27 - 139 ug/dL [facility] Iron Saturation (TSat) 11(L) 15 - 55 % [facility] Blood (Blood, Venous) 09/25/2024 10:16 AM EST 09/25/2024 us Luke Quinn MD LAB BLOOD ORDERABLES Final Result Performing Organization Address [facility] Co de Phone Number [facility] [address] [place] [address] * Protein, Total, Random Urine w/Creatinine (Protein/Creat Ratio) (09/25/2024 10:16 AM EST) Creatinine, Ur 86.4 Not Estab. mg/dL [facility] Protein, Ur 14.5 Not Estab. mg/dL [facility] Urine Protein/Creatin ine Ratio 168 0 - 200 mg/g creat [facility] Urine (Urine, Clean Catch) 09/25/2024 10:16 AM EST 09/25/2024 Luke Quinn MD LAB URINE ORDERABLES Final Result Performing Organization Address [facility] Co de Phone Number [employer] [facility] [place] [address] [place] [address] * Urine Albumin / Creatinine Ratio (09/25/2024 10:16 AM EST) Pathologist [facility] Urine Microalbumin 3.6 Not Estab. ug/mL [facility] Microalbumin/Crea tinine Ratio 4 0 - 29 mg/g creat [facility] Comment: ? Normal: ?0 - ??29 ? Moderately increased: 30 - 300 ? Severely increased: ? >300 Urine (Urine, Clean Catch) 09/25/2024 10:16 AM EST 09/25/2024 Luke Quinn MD LAB URINE ORDERABLES Final Result Performing Organization Address [facility]/ZIP Co de Phone Number [employer] [facility] [place] [address] [place] [address] * (ABNORMAL) Vitamin D 25 Hydroxy (09/25/2024 10:16 AM EST) Vitamin D, 25-OH, Total 14.6(L) 30.0 - 100.0 ng/mL [facility] Comment: Vitamin D deficiency has been defined by the [place] of Medicine and an Endocrine Society practice guideline as a level of serum 25-OH vitamin D less than 20 ng/mL (1,2). The Endocrine Society went on to further define vitamin D insufficiency as a level between 21 and 29 ng/mL (2). 1. IOM ([place] of Medicine). 2010. Dietary reference ?? intakes for calcium and D. [place]: The ?? National [employer]. 2. Edith MF, Tania DINERO, Amando PAREDES, et al. ?? Evaluation, treatment, and prevention of vitamin D ?? deficiency: an Endocrine Society clinical practice ?? guideline. JCEM. 2010; 96(7):1911-30. Blood (Blood, Venous) 09/25/2024 10:16 AM EST 09/25/2024 us Luke Quinn MD LAB BLOOD ORDERABLES Final Result [facility] [address] [place] [address] * (ABNORMAL) Urinalysis (09/25/2024 10:16 AM EST) Specific [facility], Urine 1.016 1.005 - 1.030 [facility] [phone] pH Urine 6.0 5.0 - 7.5 [facility] [phone] Color, Urine Yellow Yellow [facility] [phone] Appearance Urine Clear Clear [facility] [place] WBC Esterase Urine Trace(A) Negative [facility] Protein, Ur Negative Negative/Tra ce [facility] [phone] Glucose, Ur Negative Negative [facility] [phone] Ketones, Urine Negative Negative [facility] [place] Blood Urine Negative Negative [facility] Bilirubin Urine Negative Negative [facility] [place] Urobilinogen Urine 0.2 0.2 - 1.0 mg/dL [facility] [phone] Nitrite, Urine Negative Negative [facility] Microscopic Examination See below: [facility] Comment:Microscopic was binh cated and was performed. Urine (Urine, Clean Catch) 09/25/2024 10:16 AM EST 09/25/2024 us Luke Quinn MD LAB URINE ORDERABLES Final Result [facility] [address] [place] [address] * (ABNORMAL) CBC and Differential (09/25/2024 10:16 AM EST) WBC 8.0 3.4 - 10.8 x10E3/uL [facility] RBC 4.43 3.77 - 5.28 x10E6/uL [facility] Hemoglobin 12.6 11.1 - 15.9 g/dL [facility] Hematocrit 40.4 34.0 - 46.6 % [facility] MCV 91 79 - 97 fL [facility] MCH 28.4 26.6 - 33.0 pg [facility] MCHC 31.2(L) 31.5 - 35.7 g/dL [facility] RDW 14.9 11.7 - 15.4 % [facility] Platelets 193 150 - 450 x10E3/uL [facility] Neutrophils Relative 57 Not Estab. % [facility] Lymphocytes Relative 19 Not Estab. % [facility] Monocytes 10 Not Estab. % [facility] Eosinophils Relative 13 Not Estab. % [facility] Basophils Relative 1 Not Estab. % [facility] Neutrophils Absolute 4.6 1.4 - 7.0 x10E3/uL [facility] Lymphocytes Absolute 1.5 0.7 - 3.1 x10E3/uL [facility] Monocytes Absolute 0.8 0.1 - 0.9 x10E3/uL [facility] Eosinophils Absolute 1.0(H) 0.0 - 0.4 x10E3/uL [facility] Basophils Absolute 0.1 0.0 - 0.2 x10E3/uL [facility] Immature Granulocytes 0 Not Estab. % [facility] Immature Grans (Absolute) 0.0 0.0 - 0.1 x10E3/uL [facility] Blood (Blood, Venous) 09/25/2024 10:16 AM EST 09/25/2024 us Luke Quinn MD LAB BLOOD ORDERABLES Final Result [facility] [address] [place] [address] * Uric Acid (09/25/2024 10:16 AM EST) Uric Acid 4.8 3.1 - 7.9 mg/dL [facility] Comment:Therapeutic target f or gout patients: <6.0 Blood (Blood, Venous) 09/25/2024 10:16 AM EST 09/25/2024 us Luke Quinn MD LAB BLOOD ORDERABLES Final Result [facility] [address] [place] [address] * PTH, Intact (09/25/2024 10:16 AM EST) PTH 34 15 - 65 pg/mL [facility] Blood (Blood, Venous) 09/25/2024 10:16 AM EST 09/25/2024 us Luke Quinn MD LAB BLOOD ORDERABLES Final Result Performing Organization Address [facility] Co de Phone Number [facility] [address] [place] [address] * Magnesium (09/25/2024 10:16 AM EST) Magnesium 2.2 1.6 - 2.3 mg/dL [facility] Blood (Blood, Venous) 09/25/2024 10:16 AM EST 09/25/2024 us Luke Quinn MD LAB BLOOD ORDERABLES Final Result Performing Organization Address City/[facility]/ZIP Co de Phone Number [facility] [address] [place] [address] * (ABNORMAL) Hemoglobin A1c (09/25/2024 10:16 AM EST) Hemoglobin A1C 6.3(H) 4.8 - 5.6 % [facility] Comment: ? Prediabetes: 5.7 - 6.4 ? Diabetes: >6.4 ? Glycemic control for adults with diabetes: <7.0 Blood (Blood, Venous) 09/25/2024 10:16 AM EST 09/25/2024 us Luke Quinn MD LAB BLOOD ORDERABLES Final Result Performing Organization Address [facility]/ZIP Co de Phone Number [facility] [address] [place] [address] * Ferritin (09/25/2024 10:16 AM EST) Pathologist [facility] Ferritin 21 15 - 150 ng/mL [facility] Blood (Blood, Venous) 09/25/2024 10:16 AM EST 09/25/2024 us Luke Quinn MD LAB BLOOD ORDERABLES Final Result Performing Organization Address [facility] de Phone Number [facility] [address] [place] [address] * (ABNORMAL) Renal Function Panel (09/25/2024 10:16 AM EST) Glucose 63(L) 70 - 99 mg/dL [facility] BUN 12 8 - 27 mg/dL [facility] Creatinine 0.93 0.57 - 1.00 mg/dL [facility] eGFR CKD-EPI CR 2020 62 >59 mL/min/1.7 3 [facility] BUN/Creatinine Ratio 13 12 - 28 [facility] Sodium 138 134 - 144 mmol/L [facility] Potassium 4.4 3.5 - 5.2 mmol/L [facility] Chloride 103 96 - 106 mmol/L [facility] Bicarbonate (CO2) 22 20 - 29 mmol/L [facility] Calcium 9.2 8.7 - 10.3 mg/dL [facility] Phosphorus 3.1 3.0 - 4.3 mg/dL [facility] Albumin 4.0 3.7 - 4.7 g/dL [facility] Blood (Blood, Venous) 09/25/2024 10:16 AM EST 09/25/2024 Luke Quinn MD LAB BLOOD ORDERABLES Final Result [facility] [address] [place] [address] from Last 3 Months [place] [address] [place] [address] Care Teams [employer] Advisor Relationship Specialty Start Date End Date Jeni Garcia MD [address] [place] [address] PCP - General Internal Medicine 08/06/21
--- OUTSIDE RECORDS SUMMARY | 2024-12-10 12:00 | XMS_ITS | Encounter Summary ---
Author Organization [employer] [facility] Address [address] [facility] 7t [place] [address] Care Team Providers Care Steffen House Supervisor Name Role Phone Jeni Garcia MD Primary Care Provider + Encounter Details Date Type Department Care Team (Latest Contact Info) Description 04/28/2021 Abstract [facility] CONVERSIONS Dental, Provider, DDS Social History [...] 10:00 AM EDT Office Visit [facility] ADULT DENTAL [address] [place] [address] Blessing Bah documented as of this encounter Visit Diagnoses Not on filedocumented in this encounter Care Teams Steffen House Supervisor Relationship Specialty Start Date End Date Jeni Garcia MD [address] [place], [place] [phone] PCP - General Family Medicine 12/16/15 documented as of this encounter
--- OUTSIDE RECORDS SUMMARY | 2024-12-10 12:00 | XMS_ITS | Clinical Summary ---
Author Organization [employer] Address [address] [facility] [address] [place] [address] Care Team Providers Care Brush Stainer Name Role Phone Jeni Garcia MD [...] 24 hrs of starting treatment. Bronchitis 12/07/2024 Assessment & Plan (12/07/2024 1:18 PM EST): Concerned regarding bacterial superimposed infection. Order Chest X-ray to rule out CAP. Start Z-Pack + Albuterol Nebs every 2-6 hrs. She will start Medrol Pack if SOB does not improve with Albuterol Nebs. Increase PO fluids and rest at home. FU on Tuesday with Civil [employer]. Will call tomorrow for health status check. Stage 3a chronic kidney disease 12/07/2024 Dental [...] exercise, life style modifications, diet, referral to environmental resource specialist. Discussed re lower calorie intake, increase [...] lumbar intervertebral disc 12/10 Assessment & Plan (12/07/2024 1:23 PM EST): Seen by pain clinic, awaiting neurosurgery evaluation next week. Assessment & Plan (04/26/2023 1:34 PM EDT): doing well, needs to go back to gabapentin TID use tylenol PRN ambulation with a cane to prevent falls Chronic obstructive pulmonary disease 12/11/2012 Assessment & Plan (12/07/2024 1:22 PM EST): Currently with COPD exacerbation/bronchitis triggered by Influenza. Continue Spiriva, Singulair and Albuterol. Check with Pulmonology is she should be back on Advair BID. Will consider Influenza immunization on next appointment in 4 weeks. Assessment & Plan (12/12/2023 1:40 PM EST): [...] Encounters Date Type Department Care Team Description 12/08/2024 Telephone [facility] [address] [place] [phone] Jeni Garcia MD 12/07/2024 12:15 PM EST Office Visit [address] [address] Jeni Garcia MD Influenza A (Primary Dx); Bronchitis; Pulmonary emphysema, unspecified emphysema type (CMS/HCC); Degeneration of intervertebral disc of lumbar region with discogenic back pain 12/07/2024 Travel 12/05/[address] [address] Jeni Garcia MD Chart prep 12/04/[address] [address] Jeni Garcia MD Status Check ED visit 12/04/[address] [phone] Jeni Garcia MD ER Follow-up 11/29/2024 Orders Only GENERIC EXTERNAL DATA DEPARTMENT Provider, Generic External Data 11/28/[address] [address] Jeni Garcia MD Nurse Triage 11/13/2024 1:00 PM EST Office Visit [facility] [address] [place] [phone] Olvin, Blessing Dental calculus (Primary Dx); Dental plaque; Normal oral exam 11/13/2024 Telephone [facility] [address] [place], [place] [phone] Jeni Garcia MD DCF Form (I called [...] to call the forms department at ext [phone].) 11/01/2024 Orders Only [facility] External Provider, [facility] 11/01/2024 Refill [facility] [address] [place] [address] Jeni Garcia MD Acquired hypothyroidism; Gastroesophageal reflux [...] 10:00 AM EDT Office Visit [facility] [address] [place] [address] Blessing Bah Health Maintenance Due Date Last Done Comments Alcohol/Substance Use Screening 1957 Zoster Vaccines (2 of 3) 03/19/2015 01/22/2015 RSV Patients and Patients Aged 60 years or older (1 - 1-dose 75+ series) 2018 COVID-19 Vaccine ( - season) 2024 09/23/2021, 12/30/2020, 12/02/2020 Influenza Vaccine [...] 12:4 6 PM EST Influenza A Bronchitis XR CHEST 2 VIEWS Routine 11/29/2024 7:59 [...] Maintenance Results * XR Chest 2 Views (12/07/2024 12:46 PM EST) Only the most recent of2 resultswithin the time period is included. Anatomical Region Laterality Modality Chest Radiographic Tamiko ging 12/07/2024 12:4 6 PM EST Narrative 12/07/2024 1:32 PM EST ?[facility] ?[address] ?[place] [address] ?XRay Report ? Signed ? Patient: Joan Armendariz R ?MR#: [id number] ?? 594 ? : 1945 ?Acct:[id number] ? Age/Sex: 79 / F ?ADM Date: 12/07/24 ? Loc: HO.HHCX ? Attending Dr: Jeni Garcia MD ? Ordering Physician: Jeni Garcia MD ?? Date of Service: 12/07/24 ?? Procedure(s): XR chest 2V ?? Accession Number(s): [id number] ? cc: Jeni Garcia MD ? EXAMINATION: [...] by Jose Mosquera MD in OV> ? 12/07/240 ? DD/ 1246 ? TD/TT: 12/07/24 1300 ? Applied Technologist: ? Procedure Note Bertramter, Image - 12/07/2024 [place] [address] XRay Report Signed Patient: Joan Armendariz RMR#: [id number] : 1945cct:[id number] Age/Sex: 79 / FADM Date: 12/07/24 Loc: HO.HHCX Attending Dr: Jeni Garcia MD Ordering Physician: Jeni Garcia MD Date of Service: 12/07/24 Procedure(s): XR chest 2V Accession Number(s): [id number] cc: Jeni Garcia MD EXAMINATION: XR CHEST [...] Jose Singh MD 12/07/2024 01:30 PM EST Dictated By: Jose Juarez MD Signed By: <Electronically signed by Jose Mosquera MDin OV> 12/07/24 1330 DD/ 1246 TD/TT: 12/07/24 1300 Applied Technologist: us Jeni Garcia MD IMG XR PROCEDURES Final Result * (ABNORMAL) SARS-CoV-2 RNA, Influenza A/B, and RSV RNA, Ql NAAT (11/29/2024 7:15 PM EST) Pathologist [facility] Influenza A PCR POSITIVE(A) Negative [facility] Influenza B PCR NEGATIVE Negative [facility] Resp Syncy Virus RNA Qual PCR NEGATIVE Negative [facility] SARS COV2 PCR NEGATIVE Negative [facility] Comment:All test results mus t [...] use by authorized laboratories.Testing performed on the [employer] GeneXpert utilizingreal-time RT-PCR.All SARS CoV2 and positive influenza A/B results arereported to [facility]. 11/29/2024 7:15 PM EST 11/29/2024 7:17 PM EST us Generic External Data Provider LAB MICROBIOLOGY - GENERAL ORDERABLES Final Result [facility] [address] [place] [phone] * High Sensitivity Troponin I (11/29/2024 7:06 PM EST) Pathologist [facility] TROPONIN I HIGH SENSITIVITY 4.3 <3.5 - 17.0 ng/L [facility] Comment:The [place] high sens itivity Troponin-I results should beused in conjunction with other diagnostic information suchas ECG, clinical observations and information, and patientsymptoms to aid in the diagnosis of [place]. 11/29/2024 7:06 PM EST 11/29/2024 7:10 PM EST us Generic External Data Provider LAB BLOOD ORDERAB LES Final Result [facility] [address] [place] [phone] * (ABNORMAL) CBC auto differential (11/29/2024 7:06 PM EST) White Blood Count 6.9 4.8 - 10.8 X10*3/uL [facility] Red Blood Count 4.37 4.20 - 5.50 X10*6/uL [facility] Hemoglobin 11.8(L) 12.0 - 16.0 g/dl [facility] Hematocrit 37.2 37.0 - 47.0 % [facility] Mean Corpuscular Volume 85.1 80.0 - 98.0 fL [facility] Mean Corpuscular Hemoglobin 27.0 27.0 - 33.0 pg [facility] Mean Corpuscular HGB Conc 31.7 31.0 - 35.0 g/dl [facility] Red Cell Distribution Width 15.8 11.0 - 16.0 % [facility] Platelet Count 177 160 - 400 X10*3/uL [facility] Mean Platelet Volume 11.6 9.4 - 12.3 fL [facility] Neutrophils Percent Auto 72.5 45 - 73 % [facility] Imm Gran Pct Auto 0.6(H) 0.0 - 0.4 % [facility] Lymphocytes Percent Auto 11.7(L) 20 - 40 % [facility] Monocytes Percent Auto 9.9 2 - 11 % [facility] Eosinophils Percent Auto 3.9 0 - 4 % [facility] Basophils Percent Auto 1.4 0 - 2 % [facility] NRBC Pct Auto 0.0 0.0 - 0.2 /100WBC [facility] Neutrophils Absolute Auto 5.0 2.0 - 8.3 x10*3/uL [facility] Imm Gran Abs Auto 0.04(H) 0.00 - 0.03 X10*3/uL [facility] Lymphocytes Absolute Auto 0.8(L) 1.2 - 4.9 X10*3/uL [facility] Monocytes Absolute Auto 0.7 0.1 - 1.2 X10*3/uL [facility] Eosinophils Absolute Auto 0.3 0.0 - 0.4 X10*3/uL [facility] Basophils Absolute Auto 0.1 0.0 - 0.2 X10*3/uL [facility] NRBC Abs Auto 0.000 0.0 - 0.012 X10*3/uL [facility] 11/29/2024 7:06 PM EST 11/29/2024 7:10 PM EST us Generic External Data Provider LAB BLOOD ORDERAB LES Final Result Performing Organization Address City/State/[facility] Co de Phone Number [facility] [address] [place] [phone] * (ABNORMAL) Prothrombin Time-INR (11/29/2024 7:06 PM EST) Prothrombin Time 12.6(H) 10.9 - 12.4 SEC [facility] INTERNATIONAL NORM RATIO 1.1 0.9 - 1.1 [facility] Comment:INTERNATIONAL NORMAL IZED RATIO (INR) [...] Provider LAB BLOOD ORDERAB LES Final Result [facility] [address] [place] [phone] * (ABNORMAL) Comprehensive Metabolic Panel (11/29/2024 7:06 PM EST) Sodium 137 135 - 145 mmol/L [facility] Potassium 4.0 3.3 - 5.1 mmol/L [facility] Chloride 106 96 - 108 mmol/L [facility] Carbon Dioxide 23 22 - 29 mmol/L [facility] Anion Gap 12 12 - 20 [facility] Urea Nitrogen (BUN) 11 9 - 16 mg/dL [facility] Creatinine, Serum 1.02 0.5 - 1.4 mg/dL [facility] Creatinine Clr Calc Pharmacy 38.3 [facility] Comment:Provided height and weight: 147.32 cm,78.8 kg.eGFR (calculated from the MDRD study equation) and eCrCl(calculated from the Cockcroft-Gault equation) are based ondifferent parameters and may not yield comparable results.If eCrCl result is absurd, please check patient'sheight/weight. Estimated Glomerular Filt Rate 52 [facility] Comment:Chronic Kidney Disea se: Estimated GFR < 60 mL/min/1.81m6[place] Kidney Disease: Estimated GFR < 15 mL/min/1.73m2 Glucose 109 60 - 115 mg/dL [facility] Calcium 8.9 8.4 - 10.2 mg/dL [facility] Bilirubin, Total 0.3 0.0 - 1.0 mg/dL [facility] Aspartate Amino Transferase 35(H) 5 - 31 U/L [facility] Alanine Aminotransferase 24 0 - 31 U/L [facility] Total Protein 8.0 6.5 - 8.0 g/dL [facility] Albumin Level 3.8 3.5 - 5.0 g/dL [facility] Alkaline Phosphatase 64 39 - 117 U/L [facility] 11/29/2024 7:06 PM EST 11/29/2024 7:10 PM EST us Generic External Data Provider LAB BLOOD ORDERAB LES Final Result [facility] [address] [facility] [place] [phone] * FL Guidance in Treatment Room (11/01/2024 12:48 PM EST) Anatomical Region Laterality Modality X-Ray Angiograph y 11/01/2024 12:4 8 PM EST Narrative 11/02/2024 1:50 PM EST ? [facility] ?[address] ?[place] [address] ? Fluoroscopy Report ? Signed ? Patient: Armendariz,Joan R ?MR#: [id number] ?? 594 ? : 1945 ?Acct:[id number] ? Age/Sex: 79 / F ?ADM Date: 11/01/24 ? Loc: CF ? Attending Dr: Danis Diamond MD ? Ordering Physician: Nohemy Matthew APRN, CNP ?? Date of Service: 11/01/24 ?? Procedure(s): FL guidance in treatment room ?? Accession Number(s): [id number] ? cc: eJni Garcia MD; Nohemy Matthew APRN, CNP ? [...] DD/ 1248 ? TD/TT: 11/01/24 1259 ? Applied Technologist: ? Procedure Note Donotuseinterpreter, Image - 11/02/2024 [place] [address] Fluoroscopy Report Signed Patient: Joan Armendariz RMR#: [id number] : 1945cct:[id number] Age/Sex: 79 / FADM Date: 11/01/24 Loc: Attending Dr: Danis Diamond MD Ordering Physician: Nohemy Matthew APRN, CNP Date of Service: 11/01/24 Procedure(s): FL guidance in treatment room Accession Number(s): [id number] cc: Jeni Garcia MD; Nohemy Matthew APRN, [...] 11/02/24 1347 DD/ 1248 TD/TT: 11/01/24 1259 Applied Technologist: [facility] External Provider IMG IR PROCEDURES Edited Result - Final * BI Mammogram Screening Tomosynthesis Bilateral (01/04/2024 12:30 PM EDT) Anatomical Region Laterality Modality Breast Bilateral Mammography 01/04/2024 12:3 0 PM EDT Narrative 01/25/2024 12:29 AM EDT ? [facility] ? [address] ?[place], [place] [address] ? Mammography Report ? Signed ? Patient: Armendariz,Joan R ?MR#: [id number] ?? 594 ? : 1945 ?Acct:[id number] ? Age/Sex: 78 / F ?ADM Date: 01/04/24 ? Loc: HO.MAMMO ? Attending Dr: Jeni Garcia MD ? Ordering Physician: Jeni Garcia MD ?Results: 1Ne ?? gative ? Date of Service: 01/04/24 ?Follow Up: 1 Year From Orig ?? inal Mammogram ? Procedure(s): MM tomosynthesis screening BI ?? Accession Number(s): [id number] ? cc: Jeni Garcia MD ? EXAMINATION: ?? MM SCREENING DIGITAL BREAST TOMOSYNTHESIS, BILATERAL ? CLINICAL INFORMATION: ? Screening. Asymptomatic. ? COMPARISON: ?? Mammography: This study is compared with prior exams dating back to ?? 2017. ? TECHNIQUE: ?? Digital breast tomosynthesis is [...] 01/25/2424 ? DD/ 1230 ? TD/TT: ? Applied Technologist: ? Procedure Note Willie Maurer - 01/25/2024 [facility] [address] [place] [address] Mammography Report Signed Patient: Joan Armendariz RMR#: [id number] : 3Acct:[id number] Age/Sex: 78 / FADM Date: 01/04/24 Loc: HO.MAMMO Attending Dr: Jeni Garcia MD Ordering Physician: Jeni Garcia MDResults: 1Ne gative Date of Service: 01/04/24Follow Up: 1 Year From Orig inal Mammogram Procedure(s): MM tomosynthesis screening BI Accession Number(s): [id number] cc: Jeni Garcia MD EXAMINATION: MM SCREENING [...] in OV> 01/25/24 0025 DD/ 1230 TD/TT: Applied Technologist: Jeni Garcia MD IMG BI PROCEDURES Final [...] AM EDT) Cholesterol, Total 141 <200 mg/dL [facility] [place] [facility] HDL Cholesterol 54 > OR = 50 mg/dL [facility] [place] [facility] Triglycerides 99 <150 mg/dL [facility] [place] [facility] LDL Cholesterol 69 mg/dL (calc) [facility] [place] [facility] Comment: Reference range: <100 Desirable range <100 mg/dL for primary prevention; ?? <70 mg/dL for patients with CHD or diabetic patients with > or = 2 CHD risk factors. LDL-C is now calculated using the Rosalio calculation, which is a validated novel method providing better accuracy than the Friedewald equation in the estimation of LDL-C. Bebeto CANO et al. [place]. 2013;310(19): 6326-6086 (http://education.[employer].MobFox/faq/NVK869) Chol/HDLC Ratio 2.6 <5.0 (calc) [employer] Non-HDL Cholesterol 87 <130 mg/dL (calc) [facility] Comment: For patients with diabetes plus 1 major ASCVD risk factor, treating to a non-HDL-C goal of <100 mg/dL (LDL-C of <70 mg/dL) is considered a therapeutic option. 02/15/2023 11:0 9 AM EDT 02/15/2023 11:10 AM EDT Narrative [facility] - 02/16/2023 2:24 AM EDT FASTING:NO FASTING: NO Jeni Garcia MD LAB BLOOD ORDERABLES Fin al Result [facility] [address], [place] [address] [facility] [place] [facility] [address] [place] [phone] from Last 3 Months or Most Recently Relevant to Health Maintenance Insurance [facility] DUAL COMPLETE [facility] STANDARD DENT[facility] - [facility] * Guarantor: Joan Armendariz Account Type Relation to Patient Date of Phone Billing Address Personal/Family Self [address] [place] Care Teams Brush Stainer Relationship Specialty Start Date End Date Jeni Garcia MD [address] [place] [phone] PCP - General Family Medicine 12/16/15
--- OUTSIDE RECORDS SUMMARY | 2024-12-10 12:00 | XMS_ITS | Encounter Summary ---
Author Organization [employer] Address [address] [facility] 7t [place] [address] Care Team Providers Care Strainer Tender Name Role Phone Jeni Garcia MD Primary Care Provider + Reason for Visit * Reason Comments Routine Cleaning Dental Exam Encounter Details Date Type Department Care Team (Late st Contact Info) Description 11/13/2024 1:00 PM EST Office Visit [facility] [address] [place], [place] [phone] Blessing Bah Dental calculus (Primary Dx); Dental [...] t he electric, gas, oil or water Skoodat threatened to shut off services in your [...] 1306 (prophy and exam adult dental) Location: [facility] Tooth: Maxilla and Mandible Procedure: Exam and Prophylaxis Verified the above with patient, cancer genetics assistant, and provider. Confirmed via patient's chart, intraorally and by radiographs. Category Development Manager: not applicable Medical Hx: Vitals: Blood pressure [...] no decay noted, no restorative needs Recommendations: Merrick two times daily, modified bolton technique, Floss daily, Electric toothbrush, Soft bristle toothbrush, Merrick Tongue, Anti-sensitivity toothpaste Recall Frequency: 6 mo [...] 1306 (prophy and exam adult dental) Location: [facility] Tooth: Maxilla and Mandible Procedure: Exam and Prophylaxis Verified the above with patient, cancer genetics assistant, and provider. Confirmed via patient's chart, intraorally and by radiographs. Category Development Manager: not applicable Chief Complaint Patient presents with [...] Risk family cancer HX Oral Hygiene Instructions: Merrick two times daily, modified bolton technique, Floss daily, Electric toothbrush, Soft bristle toothbrush, Merrick Tongue Caries Risk Assessment: Medium- one risk factor Assessment/Plan RASHMI Prophy Next visit X Rays Recall Patient tolerated procedure well, all questions answered and expressed understanding. Dismissed in good condition. NV: 6 mos recall Vehicle Fare Collector: Blessing Bah RDH Dentist: Adam Romero DDS documented in this encounter Plan of Treatment Upcoming Encounters Date Type Department Care Team (Late st Contact Info) Description 05/28/2025 10:00 AM EDT Office Visit [facility] [address] [place] [address] Blessing Bah Scheduled Orders Name Type Priority [...] documented as of this encounter Care Teams Strainer Tender Relationship Specialty Start Date End Date Jeni Garcia MD [address] [place] [address] PCP - General Family Medicine 12/16/15 documented as of this encounter
== END 2024-12-10 11:24 | disposition home or self-care (01) ==
PROVIDERS: PCP Internal Medicine; Visit Provider Hospitalist
DX: J30.9 Allergic rhinitis, unspecified (principal); J98.11 Atelectasis; J45.30 Mild persistent asthma, uncomplicated; M79.89 Other specified soft tissue disorders; M54.6 Pain in thoracic spine
CPT/HCPCS: 99214

== ENCOUNTER → 2024-12-10 10:37 | Outpatient (BNVA) | payer OTHER, SELFPAY | PROVIDERS: PCP Internal Medicine; Visit Provider Hospitalist | DX: J98.11 Atelectasis (principal); J45.30 Mild persistent asthma, uncomplicated; J30.9 Allergic rhinitis, unspecified; M54.6 Pain in thoracic spine; M79.89 Other specified soft tissue disorders | CPT/HCPCS: 99212 ==

== ENCOUNTER 2025-01-01 13:53 | Outpatient (AMB) | payer OTHER, SELFPAY ==
--- NOTE | 2025-01-01 13:56 | HO.SPINEOV ---
Intake Visit Reasons: discuss surgery Intake Note: Ms. Armendariz is here today to Discuss Surgery. Diesel Mechanic Apprentice Required: Yes Diesel Mechanic Apprentice Name: Kimberly Armendariz (Daughter) Allergies codeine [CODEINE] Allergy (Mild, Verified 01/01/25 14:10) Rash morphine [MORPHINE] Allergy (Mild, Verified 01/01/25 14:10) Hallucinations oxycodone [Percocet] Allergy (Mild, Verified 01/01/25 14:10) Hives tramadol Adverse Reaction (Severe, Verified 01/01/25 14:10) Headache Assessment & Plan Assessment & Plan (1) Lumbar radiculopathy: Code(s): M54.16 - Radiculopathy, lumbar region Category: Medical Plan Joan is a pleasant 79 year old female who comes in today for follow up to discuss her recent diagnostic injection. She had a L3-4 right sided diagnostic block completed by our colleagues in pain management. At her follow-up visit with pain management she was reporting about 70% relief of her pain the day after injections. Today, she comes in for follow up and discussion of her relief from injections. She is accompanied by her daughter who helps recount some of the patient's history. Her daughter reports that unfortunately on December 21 the patient had a heart attack while on a cruise near [place]. She needed to be brought to a hospital in [place] and had 2 stents placed. She has been very tired since this incident, and this is one of her 1st times out of the home since then. Although she reported about 70% relief from her injection at her previous follow up in November, today she is stating that only a very minimal amount of her pain was relieved the day after her injection. Her daughter reported that this may be a ?bad day? for her as she is still recovering from her recent heart attack. I attempted to discuss this further with the patient, however she continued to give overall vague reports of how much of her pain was relieved after the diagnostic block. After discussing this at some length we started discussing possible interventions to address Joan's pain. Given that she recently had a heart attack and is now taking anticoagulant medication, she would at the very least need primary care/cardiology clearance and when he had to wait at least 60 days before being considered for elective surgery. I was only able to quote her for about 60% chance of pain relief given the sub-optimal response to the injection that was given. We discussed possible pain management interventions to help control her pain for the time being. I encouraged her to follow up with Dr. Diamond to see if she will be a candidate for a full therapeutic dose injection or other non-surgical therapies. At the end of this visit we decided through shared decision-making that the patient should pursue more conservative measures for pain other than surgery at this time. Lon Sosa MD,PhD [facility] Coding Level of Care Code Est Pt Level 2 (43938) Diagnoses Lumbar radiculopathy M54.16
--- OUTSIDE RECORDS SUMMARY | 2025-01-01 16:30 | XMS_ITS | Clinical Summary ---
Author Organization 175 [facility] Address [address] [place] [address] Phone Care Team Providers Care Hedis Registered Nurse Rn Name Role Phone Jeni Garcia MD Primary Care Provider + [phone] Allergies Active Allergy Reactions Criticality Noted Date [...] - 11/26/2024 11:59 PM EST Hospital Encounter [facility] Ultrasound [address] [place] [phone] Localized swelling of right lower leg Discharge Disposition: Home or Self Care 11/26/2024 1:30 PM EST Office Visit Orthopedic Surgery - [place] [address] [facility] [address] [place] [phone] Kp Lyn, DPM Localized swelling of right [...] AM EST Office Visit Orthopedic Surgery - [place] 250 175 [facility] 250 [place] [phone] Eloisa Torres NP Post-traumatic osteoarthritis of left knee (Primary Dx); History of total right knee replacement (TKR); Personal history of DVT (deep vein thrombosis) 11/14/2024 1:40 PM EST Office Visit Gastroenterology - [address] [phone] Jing Fields NP Gastroesophageal reflux disease, unspecified whether esophagitis present (Primary Dx) 11/14/2024 Telephone Gastroenterology - [address] [phone] Jessy Agulia [place] 10/31/2024 Telephone Gastroenterology - [address] [phone] Emma Leonard MA 10/31/2024 Telephone Gastroenterology - [address] [phone] Emma Leonard MA 10/12/2024 Telephone Gastroenterology - [address] [phone] Jessy Aguila MA 10/04/2024 Lab Requisition [facility] - Main Lab 299 [facility] [place] [phone] Samy Becerril MD 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 from Last 3 Months Surgical History Surgery [...] PM EDT Office Visit Orthopedic Surgery - [place] [phone] [phone] Lazaro Saleh MD [address] [address] Health Maintenance Due Date Last Done Comments [...] Signed Date: 11/26/2024 16:32 ET Workstation ID: [id number] Transcribed By: Self Edit Transcribed Date: 11/26/2024 [...] Signed Date: 11/26/2024 16:32 ET Workstation ID: [id number] Transcribed By: Self Edit Transcribed Date: 11/26/2024 16:32 ET us Kp Lyn DPM CV VASCULAR PROCEDURES Fi nal Result * XR Knee 4+ Views Left (11/15/2024 10:43 AM EST) Anatomical Region Laterality Modality Lower Extremities, Knee Left Computed Radiography Narrative 11/15/2024 11:28 AM EST Date of Visit: 11/15/2024 Reason for visit: ?? Left knee pain Views: AP, Lateral, Silvestre, [place] left knee Findings: On AP view there is narrowing through the medial greater than lateral compartment of the left knee with subchondral sclerosis and small marginal osteophytes. ??Note of stable appearing right total knee replacement. ??Moderate degenerative changes seen through the patellofemoral compartment on sunrise view. ??No acute findings. Impression: Moderate osteoarthritis left knee. Eloisa Torres WEATHERIZATION AND HOUSING INSPECTOR IMG XR PROCEDURES Final Result * External [...] glandular epithelium identified. 10/05/2024 12:26 PM EST [facility]) [facility] Clinical Information Heartburn,esophag eal reflux symptoms that persist despite appropriate therapy Finding:R/O oliver's 10/05/2024 12:26 PM EST [facility]) [facility] Gross Description A. [...] on one slide. 10/05/2024 12:26 PM EST [facility] Disclaimer Unless otherwise specified, all tissue is 10% NB formalin fixed and paraffin embedded. 10/05/2024 12:26 PM EST [facility] Tissue Esophageal structure / Unknown 10/03/2024 10/04/2024 5:36 AM EST Tissue specimen (specimen) Esophageal structure / Unknown 10/03/2024 10/04/2024 5:36 AM EST us Samy Becerril MD LAB PATHOLOGY ORDERABLES Fi nal Result [facility] ([facility]) [facility] [address] [place] [address], from Last 3 Months Insurance MEDICAID - [place] [address] Advance Directives Documents on File Type Date Recorded Patient Embedded Systems Software Developer Expl anation Health Care Decision (hx) 03/27/2019 [...] DIRECTIVE Health Care Decision (hx) 03/27/2019 AD CEAJ DIRECTIVE Health Care Decision (hx) 03/27/2019 AD [...] (hx) 03/27/2019 AD CEJA DIRECTIVE Care Teams Hedis Registered Nurse Rn Relationship Specialty Start Date End Date Jeni Garcia MD [address] [place] [phone] PCP - General 05/19/21
--- OUTSIDE RECORDS SUMMARY | 2025-01-01 16:30 | XMS_ITS | Encounter Summary ---
Author Organization [facility] Address [address] [address] Phone Care Team Providers Care Yarn Finisher Name Role Phone Jeni Garcia MD Primary Care Provider + [phone] Reason for Visit * Reason Comments Med Refill Encounter Details Date Type Department Care Team (Late Contact Info) Description 12/17/2024 [facility]ill [facility] [address] [phone] Luke Quinn MD [address] [place] [phone] Social History Tobacco Use Types Packs/Day Years [...] Department Care Team (Late Contact Info) Description 10/01/2025 1:45 PM EST [facility] Visit [facility] [address] [phone] Luke Quinn MD [address] [place] [phone] documented as of this encounter Visit Diagnoses Not on filedocumented in this encounter Care Teams Yarn Finisher Relationship Specialty Start Date End Date Jeni Garcia MD [address] [place] [phone] PCP - General Internal Medicine 08/06/21 documented as of this encounter
--- OUTSIDE RECORDS SUMMARY | 2025-01-01 16:30 | XMS_ITS ---
Author Name Sveta Calderon NP Address [address] [place] [address] Phone [phone] [facility] Care Team Providers Care Truck Railroad And Bus Motor Mechanic Name Role Phone Sveta Calderon Unavailable [phone] Unavailable Unavailable Unavailable Reason for Referral Not [...] TAKE 1 TABLET BY [facility] EVERY 8 HOURS NEEDED FOR MILD PAIN [...] 1 TAB LET BY MOUTH EVERY DAY 2023-08-17 2023-09-26 Fluticasone Propionate 50 MCG/ACT Suspension PLEASE SEE [...] calculi Resolved 2022-12-02 Other problems related to [facility] facilities and other health care Active 2023-11-25 N/A Glaucoma Active 2022-11-05 N/A Cataracts, bilateral Active 2022-11-05 N/A Arthritis of left upper arm Active 2022-12-02 N/A Atherosclerosis of renal art celine, Atherosclerosis of [place] arteries of extremities with intermittent claudication, bilateral [...] (do not use for phone, instead use 91329-11) [facility] 11/05/2022 Rheumatoid polyneurop w rheumatoid arthritis of unsp siteAtherosclerosis of renal arteryAthscl lac vieux arteries of extrm w intrmt nilesh, bi legsPersonal history of urinary calculi New patient,40-59min; chronic exacerbation, 2 stable chronic or 1 acute illness add add modifier 95 for video (do not use for phone, instead use 66860-29) [facility] ([place] 11/05/2022 New patient,40-59min; chronic exacerbation, 2 stable chronic or 1 acute illness add add modifier 95 for video (do not use for phone, instead use 36980-36) [facility]/20[place] New patient,40-59min; chronic exacerbation, 2 stable chronic or 1 acute illness add add modifier 95 for video (do not use for phone, instead use 63985-75) [facility]/05/2022 New patient,40-59min; chronic exacerbation, 2 stable chronic or 1 acute illness add add modifier 95 for video (do not use for phone, instead use 59714-47) [facility] 11/05/2022 New patient,40-59min; chronic exacerbation, 2 stable chronic or 1 acute illness add add modifier 95 for video (do not use for phone, instead use 42434-61) [facility] 11/05/2022 No Data Available [facility] 12/02/2022 Primary osteoarthritis, left elbowPersonal history of urinary calculi No Data Available [facility] 12/02/2022 No Data Available [facility] 12/02/2022 No Data Available [facility] 01/25/2023 Shortness of breathCough, unspecified Estab. patient 20-29min; 1 stable chronic or 2 minor; add add modifier 95 for video, modifier 93 for phone [facility] 07/25/2023 Rheumatoid polyneurop w rheumatoid arthritis of uns siteAtherosclerosis of renal arteryAthscl lac vie[place] arteries of extrm w intrmt nilesh, bi legsPersonal history of urinary calculiAcquired absence of other specified parts of digestive tractUnspecified asthma, uncomplicatedUnspecified glaucomaUnspecified cataractImmunodeficiency due to drugsOther mcfp (current) drug therapyChronic obstructive pulmonary disease, unspecifiedObesity, unspecifiedBody mass index (BMI) 35.0-35.9, adultPrimary osteoarthritis, left elbowShortness of breathCough, unspecified Estab. patient 20-29min; 1 stable chronic or 2 minor; add add modifier 95 for video, modifier 93 for phone [facility] 07/25/2023 Estab. patient 20-29min; 1 stable chronic or 2 minor; add add modifier 95 for video, modifier 93 for phone [facility] 07/25/2023 Estab. patient 20-29min; 1 stable chronic or 2 minor; add add modifier 95 for video, modifier 93 for [facility], [place] 07/25/2023 Estab. patient 20-29min; 1 stable chronic or 2 minor; add add modifier 95 for video, modifier 93 for phone [facility] 07/25/2023 Estab. patient 20-29min; 1 stable chronic or 2 minor; add add modifier 95 for video, modifier 93 for [facility], [place] 07/25/2023 No Data Available [facility] [place] 09/30/2023 Chronic obstructive pulmonar y disease, unspecifiedRheumatoid polyneurop w rheumatoid arthritis of unsp siteAtherosclerosis of renal arteryAthscl lac vie[place] arteries of extrm w intrmt nilesh, bi legsImmunodeficiency due to drugsPersonal history of urinary calculiAcquired absence of other specified parts of digestive tractUnspecified asthma, uncomplicatedUnspecified glaucomaUnspecified cataractOther mcfp (current) drug therapyObesity, unspecifiedBody mass index (bmi) 34.0-34.9, adultPrimary osteoarthritis, left elbowShortness of breathCough, unspecifiedCellulitis, unspecified No Data Available [facility] 09/30/2023 No Data Available [facility] 09/30/2023 No Data Available [facility] [place] 09/30/2023 RN, CN or CP time with patient by phone; use with 1111F, BP, A1c or other CPTII codes [facility], ([place]) 09/26/2023 Encounter for other specifie d aftercare RN, CN or CP time with patient by phone; use with 1111F, BP, A1c or other CPTII codes [facility] ([place] 09/26/2023 Estab. patient 30-39min; chronic exacerbation, 2 stable chronic or 1 acute illness add add modifier 95 for video, (do not use for phone, instead use 22654-94) [facility] 11/25/2023 Rheumatoid polyneurop w rheumatoid arthritis of unsp siteAtherosclerosis of renal arteryAthscl [place] vie[place] arteries of extrm w intrmt nilesh, bi legsUnspecified glaucomaUnspecified cataractImmunodeficiency due to drugsOther terminal supervisor (current) drug therapyChronic obstructive pulmonary disease, unspecifiedObesity, unspecifiedPrimary osteoarthritis, left elbowOther problems related to medical facilities and other health careAthscl heart disease of lac vieux cor art w unstable ang pctrsPeripheral vascular disease, unspecifiedDermatitis, unspecifiedType 2 diabetes mellitus with other specified complicationMixed hyperlipidemia Estab. patient 30-39min; chronic exacerbation, 2 stable chronic or 1 acute illness add add modifier 95 for video, (do not use for phone, instead use 21546-08) [facility] 11/25/2023 Estab. patient 30-39min; chronic exacerbation, 2 stable chronic or 1 acute illness add add modifier 95 for video, (do not use for phone, instead use 51486-89) [facility] 11/25/2023 Estab. patient 30-39min; chronic exacerbation, 2 stable chronic or 1 acute illness add add modifier 95 for video, (do not use for phone, instead use 74585-60) [facility] 11/25/2023 Estab. patient 30-39min; chronic exacerbation, 2 stable chronic or 1 acute illness add add modifier 95 for video, (do not use for phone, instead use 45205-95) [facility] 11/25/2023 Estab. patient 30-39min; chronic exacerbation, 2 stable chronic or 1 acute illness add add modifier 95 for video, (do not use for phone, instead use 19485-09) [facility] 11/25/2023 Estab. patient 30-39min; chronic exacerbation, 2 stable chronic or 1 acute illness add add modifier 95 for video, (do not use for phone, instead use 43679-11) [facility] 11/25/2023 Estab. patient 30-39min; chronic exacerbation, 2 stable chronic or 1 acute illness add add modifier 95 for video, (do not use for phone, instead use 35093-05) [facility] 11/25/2023 Estab. patient 30-39min; chronic exacerbation, 2 stable chronic or 1 acute illness add add modifier 95 for video, (do not use for phone, instead use 92933-00) [facility] 11/25/2023 Estab. patient 30-39min; chronic exacerbation, 2 stable chronic or 1 acute illness add add modifier 95 for video, (do not use for phone, instead use 69402-04) [facility] 11/25/2023 Estab. patient 30-39min; chronic exacerbation, 2 stable chronic or 1 acute illness add add modifier 95 for video, (do not use for phone, instead use 59850-08) [facility] 11/25/2023 Vital Signs Date of Collection Vitals [...] tive Time Current Smoking Status Former smoker 2024-12-15 6 Sex Female History of Procedures Procedures Service Procedure code Service date Servicing provider Phone# New patient,40-59min; chronic exacerbation, 2 stable chronic or 1 acute illness add add modifier 95 for video (do not use for phone, instead use 94369-29) 30173 2022-11-05 No Data Available No Data Availa [...] le No Data Available No Data Available 41581 2022-12-02 No Data Available No Data Available Medication List Documented (1159F) 1159F 2022-12-02 No Data Available No Data Lucretia ilable Pain Assessment - Pain Documented on a Pain Scale (1125F) 1125F 2022-12-02 No Data Available No Data Lucretia ilable No Data Available [id number] 2023-01-25 No Data Available No Data Available Estab. patient 20-29min; 1 stable chronic or 2 minor; add add modifier 95 for video, modifier 93 for phone 97894 2023-07-25 No Data Available No Data Availa [...] le No Data Available No Data Available [id number] 2023-09-30 No Data Available No Data Available [...] 1111F, BP, A1c or other CPTII codes 38894 2023-09-26 No Data Available No Data Avai lable Medications prescribed in hospital were reviewed and reconciled against what they were taking prior to admission during today's visit. (1111F) 1111F 2023-09-26 No Data Available No Data Availa ble Estab. patient 30-39min; chronic exacerbation, 2 stable chronic or 1 acute illness add add modifier 95 for video, (do not use for phone, instead use 65057-32) 38654 2023-11-25 No Data Available No Data Availa [...] unspecified siteAtherosclerosis of renal artery, Atherosclerosis of [place] arteries of extremities with intermittent claudication, bilateral legsHx of renal calculi 2022-12-02 12:17:08 Arthritis of left up per armHx of renal calculi 2023-01-25 09:24:51 Follow up plan for a cute symptoms: F/U PCPShortness of breath with cough 2023-07-25 08:46:34 <Fully document all Diagnosis>Rheumatoid polyneuropathy with rheumatoid arthritis of unspecified siteAtherosclerosis of renal artery, Atherosclerosis of [place] arteries of extremities with intermittent claudication, bilateral legsHx of renal calculiHx of cholecystectomyAsthmaGlaucomaCataracts, bilateralImmunodeficiency due to drugsChronic obstructive pulmonary disease, unspecifiedObesity (BMI 30.0-34.9)Arthritis of left upper armHx of renal calculiShortness of breath with cough 2023-09-30 07:29:04 Rheumatoid polyneuro gregor with rheumatoid arthritis of unspecified siteAtherosclerosis of renal artery, Atherosclerosis of [place] arteries of extremities with intermittent claudication, bilateral legsHx of renal calculiHx of cholecystectomyAsthmaGlaucomaCataracts, bilateralImmunodeficiency due to drugsChronic obstructive pulmonary disease, unspecifiedObesity (BMI 30.0-34.9)Arthritis of left upper armHx of renal calculiShortness of breath with coughCellulitis 2023-11-25 11:48:09 Other problems relat ed to medical facilities and other health careRheumatoid polyneuropathy with rheumatoid arthritis of unspecified siteAtherosclerosis of renal artery, Atherosclerosis of [place] arteries of extremities with intermittent claudication, bilateral legsGlaucomaCataracts, bilateralImmunodeficiency due to drugsChronic obstructive pulmonary disease, unspecifiedObesity (BMI 30.0-34.9)Arthritis of left upper armOther problems related to medical facilities and other health careAtherosclerosis of renal artery, Atherosclerosis of [place] arteries of extremities with intermittent claudication, bilateral [...] <80 (3078F)Continue to see PCP. [facility] or disease education needs that may arise 09/05.Methotrexare, taking fewer (6) tabs than prescribed (8), concerned about AE .Advised to tlk to rheumatology about it.Not on a statin - will investigateEncouraged to lose weightEast high fiber foodActivity as toleratedRecently passed a kidney stone, 11/0308Foeybsmu7/24/2022tableAdvair,Albuterol PRN,Montelukast.ophtho consult coing up in Januaryophtho consult [...] visit. (1111F)Continue to see PCP. [facility] or disease education needs that may arise 09/05.Methotrexare, taking fewer (6) tabs than prescribed (8), concerned about AE .Advised to tlk to rheumatology about it.Not on a statin - will investigateEncouraged to lose weightEast high fiber foodActivity as toleratedRecently passed a kidney stone, 11/0383Vzdypdrp6/24/2022tableAdvair,Albuterol PRN,Montelukast.ophtho consult coing up in Januaryophtho consult [...] joint pain increased [facility]. Follow-up with [facility] as needed for any acute or [...] smoking.keep skin hydrated triamcinolone PRN Eosinophil count [id number] 08/19/23not on any medication Advised to eat [...] factors: 12/01/22-cellulitis LE 2023-11-25 Open HEDIS Measure r ricardo: done 2023-11-25 PCP 12/12/23 ; RHEUM f/u 11/27/23
--- OUTSIDE RECORDS SUMMARY | 2025-01-01 16:30 | XMS_ITS | Encounter Summary ---
Author Organization [facility] Address [address] [place] [address] Care Team Providers Care Demand Planning Analyst Name Role Phone Jeni Garcia MD Primary Care Provider + [phone] Encounter Details Date Type Department Care Team (Late Contact Info) Description 10/04/2024 Lab Requisition [facility] - Main Lab [address] 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 10/05/2024 12:26 PM [facility] Clinical Information Heartburn,esophag eal reflux symptoms that persist despite appropriate therapy Finding:R/O oliver's 10/05/2024 12:26 PM [facility] Gross Description A. Esophagus, [...] on one slide. 10/05/2024 12:26 PM EST [facility] Disclaimer Unless otherwise specified, all tissue is 10% NB formalin fixed and paraffin embedded. 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
--- OUTSIDE RECORDS SUMMARY | 2025-01-01 16:31 | XMS_ITS | Encounter Summary ---
Author Organization [employer] Address 75 [facility] 7t [place] [address] Care Team Providers Care Naval Aircrewman Name Role Phone Jeni Garcia MD Primary Care Provider + Reason for Visit * Reason Comments ER Follow-up Encounter Details Date Type Department Care Team (Latest Contact Info) Description 12/07/2024 12:15 PM EST Office Visit [facility] MEDICINE [address] [place], [place] [phone] Jeni Garcia MD 230 [place], [place] [phone] Influenza A (Primary Dx); Bronchitis; Pulmonary emphysema, [...] old female who presents for follow up [facility] visit for Influenza type A. Patient admitted on 11/29/2024 at [place] ED with URI symptoms X 1 week. [...] Neb solution. Patient was seen at [facility] for back pain on 11/28/24 and [...] rest at home. FU on Tuesday with Ditch Tender. Will call tomorrow for health status check. [...] rest at home. FU on Tuesday with Ditch Tender. Will call tomorrow for health status check. [...] Care Team (Late st Contact Info) Description 01/03/2025 10:45 AM EDT Office Visit [facility] MEDICINE [address] [place] [address] Jeni Garcia MD [address] [place] [address] 02/15/2025 11:15 AM EDT Office Visit [facility] MEDICINE [address] [place] [address] Jeni Garcia MD [address] [place] [address] 05/28/2025 10:00 AM EDT Office Visit [facility] ADULT DENTAL [address] [place] [address] Blessing Bah documented as of this encounter Procedures Procedure Name Priority Date/Time Associated Diagnosis Comments XR CHEST 2 VIEWS Routine 12/07/2024 12:4 6 PM EST Influenza A Bronchitis documented in this encounter Results * XR Chest 2 Views (12/07/2024 12:46 PM EST) Anatomical Region Laterality Modality Chest Radiographic Tamiko ging 12/07/2024 12:4 6 PM EST Narrative 12/07/2024 1:32 PM EST ?[facility] ?[address] ?[place] [address] ?XRay Report ? Signed ? Patient: Armendariz,Joan R ?MR#: [id number] ?? [id number] ? : 1945 ?Acct:[id number] ? Age/Sex: 79 / F ?ADM Date: 12/07/24 ? Loc: HO.HHCX ? Attending Dr: Jeni Garcia MD ? Ordering Physician: Jeni Garcia MD ?? Date of Service: 12/07/24 ?? Procedure(s): XR chest 2V ?? Accession Number(s): [id number] ? cc: Jeni Garcia MD ? EXAMINATION: [...] Singh MD ??12/07/2024 01:30 PM ?? EST ? Dictated By: ?Jose Juarez MD ? Signed By: ?<Electronically signed by Jose Mosquera MD in OV> ? 12/07/24 1330 ? DD/ 1246 ? TD/TT: 12/07/24 1300 ? Sales Administration Manager: ? Procedure Note Willie Maurer - 12/07/2024 [facility] [address] [place] [address] XRay Report Signed Patient: Joan Armendariz RMR#: [id number] : 3Acct:[id number] Age/Sex: 79 / FADM Date: 12/07/24 [facility] Dr: Jeni Garcia MD Ordering Physician: Jeni Garcia MD Date of Service: 12/07/24 Procedure(s): XR chest 2V Accession Number(s): [id number] cc: Jeni Garcia MD EXAMINATION: XR CHEST [...] 12/07/24 1330 DD/ 1246 TD/TT: 12/07/24 1300 Sales Administration Manager: Jeni Garcia MD IMG XR PROCEDURES Final [...] documented as of this encounter Care Teams Naval Aircrewman Relationship Specialty Start Date End Date Jeni Garcia MD [address] [place] [phone] PCP - General Family Medicine 12/16/15 documented as of this encounter
--- OUTSIDE RECORDS SUMMARY | 2025-01-01 16:31 | XMS_ITS | Encounter Summary ---
Author Organization [employer] Address 75 [facility] 7t [place] [address] Care Team Providers Care Buttonhole Tacker Name Role Phone Jeni Garcia MD Primary Care Provider + Reason for Visit * Reason Comments Med Refill Encounter Details Date Type Department Care Team (Late st Contact Info) Description 10/19/2023 Refill [facility] MEDICINE [address] [place], [place] [phone] Jayshree Andrade DO 230 [place], [place] [phone] Social History Tobacco Use Types Packs/Day Years [...] Description 01/03/2025 10:45 AM EDT Office Visit [facility] MEDICINE [address] [place] [address] Jeni Garcia MD [address] [place] [address] 02/15/2025 11:15 AM EDT Office Visit [facility] MEDICINE [address] [place] [phone] Jeni Garcia MD [address] [place] [address] [phone] 05/28/2025 10:00 AM EDT Office Visit [facility] ADULT DENTAL [address] [place] [phone] Blessing Bah documented as of this encounter Visit Diagnoses Not on filedocumented in this encounter Additional Health Concerns Assessment Noted Time PHQ-9 Depression Total Score: 0 11/16/19 23 10:53 AM EST documented as of this encounter Care Teams Buttonhole Tacker Relationship Specialty Start Date End Date Jeni Garcia MD [address] [place] [phone] PCP - General Family Medicine 12/16/15 documented as of this encounter
--- OUTSIDE RECORDS SUMMARY | 2025-01-01 16:31 | XMS_ITS | Encounter Summary ---
Author Organization [employer] Address 75 [facility] 7t [place] [address] Care Team Providers Care Licensed Clinical Social Worker Name Role Phone Jeni Garcia MD Primary Care Provider + Reason for Visit * Reason Onset Date Comments Chart prep 12/05/2024 Encounter Details Date Type Department Care Team ([facility] st Contact Info) Description 12/05/2024 Telephone [facility] MEDICINE 230 [place], [place] [phone] Jeni Garcia MD 230 [place], [place] [phone] Chart prep Social History Tobacco Use Types [...] Description 01/03/2025 10:45 AM EDT Office Visit [facility] MEDICINE [address] [place] [address] Jeni Garcia MD [address] [place] [address] 02/15/2025 11:15 AM EDT Office Visit [facility] MEDICINE [address] [place] [address] Jeni Garcia MD [address] [place] [address] 05/28/2025 10:00 AM EDT Office Visit [facility] ADULT DENTAL [address] [place] [address] Blessing Bah documented as of this encounter Visit Diagnoses Not on filedocumented in this encounter Additional Health Concerns Assessment Noted Time PHQ-9 Depression Total Score: 0 11/16/19 10:53 AM EST documented as of this encounter Care Teams Licensed Clinical Social Worker Relationship Specialty Start Date End Date Jeni Garcia MD [address] [place] [phone] PCP - General Family Medicine 12/16/15 documented as of this encounter
--- OUTSIDE RECORDS SUMMARY | 2025-01-01 16:31 | XMS_ITS | Encounter Summary ---
Author Organization [employer] Address [address] [facility] 7t [place] [address] Care Team Providers Care Internal Carver Name Role Phone Jeni Garcia MD Primary Care Provider + Reason for Visit * Reason Onset Date Comments Status Check ED visit 12/04/2024 Encounter Details Date Type Department Care Team ([facility] st Contact Info) Description 12/04/[address] [facility] MEDICINE [address] [place], [place] [phone] Jeni Garcia MD 230 [place], [place] [phone] Status Check ED visit Social History Tobacco [...] 10:13 AM EST TC placed to patient [phone] in regards to below message. Patient reports [...] together. Patient informed per ED note Use hqus-lyc-qreteja ibuprofen 600 mg taken every 6 hours with food, alternated with atpn-qme-bszvwla Tylenol 1000 mg takenevery 8 hours . [...] PM EST ----- Patient was apparently in [place] emergency room on 11/29 with flu and probably bronchitis. Please call her on Tuesday for health status check and see if she needs additional follow-up or if she is recovering well. documented in this encounter Plan of Treatment Upcoming Encounters Date Type Department Care Team (Late st Contact Info) Description 01/03/2025 10:45 AM EDT Office Visit [facility] MEDICINE [address] [place] [address] Jeni Garcia MD 230 [place] [address] 02/15/2025 11:15 AM EDT Office Visit [facility] MEDICINE [address] [place] [address] Jeni Garcia MD [address] [place], [place] [phone] 05/28/2025 10:00 AM EDT Office Visit [facility] ADULT DENTAL [address] [place], [place] [phone] Blessing Bah documented as of this encounter Visit Diagnoses Not on filedocumented in this encounter Additional Health Concerns Assessment Noted Time PHQ-9 Depression Total Score: 0 11/16/19 23 10:53 AM EST documented as of this encounter Care Teams Internal Carver Relationship Specialty Start Date End Date Jeni Garcia MD [address] [place] [address] [phone] PCP - General Family Medicine 12/16/15 documented as of this encounter
--- OUTSIDE RECORDS SUMMARY | 2025-01-01 16:31 | XMS_ITS | Encounter Summary ---
Author Organization [employer] Address 75 [facility] 7t [place] [address] Care Team Providers Care Behavior Analyst Name Role Phone Jeni Garcia MD Primary Care Provider + Reason for Visit * Reason Onset Date Comments C pap request 01/26/2023 Encounter Details Date Type Department Care Team ([facility] st Contact Info) Description 01/26/2023 Telephone [facility] MEDICINE 230 [place], [place] [phone] Jeni Garcia MD 230 [place], [place] [phone] C pap request Social History Tobacco Use [...] on CPAP machine. Please contact pt at [phone] (Azeri speaker) * Telephone Encounter - Aleshia Stark [...] Description 01/03/2025 10:45 AM EDT Office Visit [facility] MEDICINE [address] [place] [address] Jeni Garcia MD [address] [place] [address] 02/15/2025 11:15 AM EDT Office Visit [facility] MEDICINE [address] [place] [address] Jeni Garcia MD [address] [place] [address] 05/28/2025 10:00 AM EDT Office Visit [facility] ADULT DENTAL [address] [place] [address] Blessing Bah documented as of this encounter Visit Diagnoses Not on filedocumented in this encounter Additional Health Concerns Assessment Noted Time PHQ-9 Depression Total Score: 0 11/16/19 23 10:53 AM EST documented as of this encounter Care Teams Behavior Analyst Relationship Specialty Start Date End Date Jeni Garcia MD 230 [place] [address] PCP - General Family Medicine 12/16/15 documented as of this encounter
--- OUTSIDE RECORDS SUMMARY | 2025-01-01 16:31 | XMS_ITS | Encounter Summary ---
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) Jeni Garcia MD 230 [place] [address] Phone: tel: fax: [facility] [address] [facility] [address] [place] [address] Phone: tel: fax: Referral ID Status Reason Start Date Expiration Date V isits Requested Visits Authorized [id number] Closed Specialty Services Required 06/13/2024 06/13/2025 1 1 Encounter Details Date Type Department Care Team (Late st Contact Info) Description 06/13/2024 Orders Only [facility] MEDICINE 230 [place], [place] [phone] Jeni Garcia MD 230 [place], [place] [phone] Renal artery stenosis (CMS/HCC); Superior mesenteric artery [...] Upcoming Encounters Date Type Department Care Team ([facility] st Contact Info) Description 01/03/2025 10:45 AM EDT Office Visit [facility] MEDICINE [address] [place] [address] Jeni Garcia MD 230 [place] [address] 02/15/2025 11:15 AM EDT Office Visit [facility] MEDICINE [address] [facility] [place] [address] Jeni Garcia MD 230 [place] [address] 05/28/2025 10:00 AM EDT Office Visit [facility] ADULT DENTAL 230 [place] [address] Blessing Bah Scheduled Referrals Name Type Priority [...] EDT Narrative 06/28/2024 4:28 PM EDT ? [facility] ?[address] ?[place] [address] ?XRay Report ? Signed ? Patient: Armendariz,Joan R ?MR#: [id number] ?? 594 ? : 1945 ?Acct:[id number] ? Age/Sex: 79 / F ?ADM Date: 09/12/24 ? Loc: HO.ED ? Attending Dr: ? Ordering Physician: Geovanna Austin ?? Date of Service: 06/28/24 ?? Procedure(s): XR lumbar spine 2-3V ?? Accession Number(s): [id number] ? cc: Jeni Garcia MD; Geovanna Austin [...] DD/ 1600 ? TD/TT: 06/28/24 1615 ? Event Crew Technician: ? Procedure Note Willie Maurer - 06/28/[address] [address] XRay Report Signed Patient: Joan Armendariz RMR#: [id number] : 3Acct:[id number] Age/Sex: 79 / FADM Date: 06/28/24 Loc: HO.ED Attending Dr: Ordering Physician: Geovanna Austin Date of Service: 06/28/24 Procedure(s): XR lumbar spine 2-3V Accession Number(s): [id number] cc: Jeni Garcia MD; Geovanna Austin EXAMINATION: [...] Julia Ellis MD 06/28/2024 04:25 PM EDT Dictated By: Julia Ellis MD Signed By: <Electronically signed by Julia Ellis MD in OV> 06/28/24 1625 DD/ 1600 TD/TT: 06/28/24 1615 Event Crew Technician: [facility] External Provider IMG XR PROCEDURES Final Result * XR Chest 1 View (06/28/2024 12:52 PM EDT) Anatomical Region Laterality Modality Chest Radiographic Tamiko ging 06/28/2024 12:5 2 PM EDT Narrative 06/28/2024 3:02 PM EDT ? [place] [facility] ?[address] ?[place] [address] ?XRay Report ? Signed ? Patient: Armendariz,Joan R ?MR#: [id number] ?? 594 ? : 1945 ?Acct:[id number] ? Age/Sex: 79 / F ?ADM Date: 06/28/24 ? Loc: HO.ED ? Attending Dr: ? Ordering Physician: Geovanna Austin ?? Date of Service: 06/28/24 ?? Procedure(s): XR chest 1V ?? Accession Number(s): [id number] ? cc: Jeni Garcia MD; Geovanna Austin [...] DD/ 1252 ? TD/TT: 06/28/24 1259 ? Event Crew Technician: RK ? Procedure Note [employer], Image - 06/28/[address] [address] XRay Report Signed Patient: Joan Armendariz RMR#: [id number] : 3Acct:[id number] Age/Sex: 79 / FADM Date: 06/28/24 Loc: HO.ED Attending Dr: Ordering Physician: Geovanna Austin Date of Service: 06/28/24 Procedure(s): XR chest 1V Accession Number(s): [id number] cc: Jeni Garcia MD; Geovanna Austin EXAMINATION: [...] Lepe MD 06/28/2024 02:59 PM EDT RP Workstation: [employer] Dictated By: Franklin Lepe MD Signed By: <Electronically signed by Franklin Lepe MD in OV> 06/28/24 1459 DD/ 1252 TD/TT: 06/28/24 1259 Event Crew Technician: BETH [facility] External Provider IMG XR PROCEDURES Final [...] documented as of this encounter Care Teams Coldfusion Relationship Specialty Start Date End Date Jeni Garcia MD [address] [place] [phone] PCP - General Family Medicine 12/16/15 documented as of this encounter
--- OUTSIDE RECORDS SUMMARY | 2025-01-01 16:31 | XMS_ITS | Encounter Summary ---
Author Organization [employer] Address 75 [facility] 7t [place] [address] Care Team Providers Care Auto Tech Name Role Phone Jeni Garcia MD Primary [...] Description 01/03/2025 10:45 AM EDT Office Visit [facility] MEDICINE [address] [place] [address] Jeni Garcia MD 230 [place] [address] 02/15/2025 11:15 AM EDT Office Visit [facility] MEDICINE [address] [place] [address] Jeni Garcia MD 230 [place] [address] 05/28/2025 10:00 AM EDT Office Visit [facility] ADULT DENTAL [address] [place] [address] Blessing Bah documented as of this encounter Visit Diagnoses Not on filedocumented in this encounter Additional Health Concerns Assessment Noted Time PHQ-9 Depression Total Score: 0 11/16/19 23 10:53 AM EST documented as of this encounter Care Teams Auto Tech Relationship Specialty Start Date End Date Jeni Garcia MD [address] [place] [address] PCP - General Family Medicine 12/16/15 documented as of this encounter
--- OUTSIDE RECORDS SUMMARY | 2025-01-01 16:31 | XMS_ITS | Encounter Summary ---
Author Organization [employer] Address 75 [facility] 7t [place] [address] Care Team Providers Care Supervisor Shipping Name Role Phone Jeni Garcia MD Primary Care Provider + Reason for Visit * Reason Onset Date Comments ER Follow-up 12/04/2024 Encounter Details Date Type Department Care Team ([facility] st Contact Info) Description 12/04/2024 Telephone [facility] MEDICINE 230 [place], [place] [phone] Jeni Garcia MD 230 [place], [place] [phone] ER Follow-up Social History Tobacco Use Types [...] ED visit on : Date: 11/29/2024 Hospital: [facility] Seen for: Flu , Cough Symptomatic No *if yes message should go to Triage Patient advised will forward to team nurse for follow up documented in this encounter Plan of Treatment Upcoming Encounters Date Type Department Care Team (Late st Contact Info) Description 01/03/2025 10:45 AM EDT Office Visit [facility] MEDICINE [address] [place] [address] Jeni Garcia MD [address] [place] [address] 02/15/2025 11:15 AM EDT Office Visit [facility] MEDICINE [address] [place] [address] Jeni Garcia MD [address] [place] [address] 05/28/2025 10:00 AM EDT Office Visit [facility] ADULT DENTAL [address] [place] [address] Blessing Bah documented as of this encounter Visit Diagnoses Not on filedocumented in this encounter Additional Health Concerns Assessment Noted Time PHQ-9 Depression Total Score: 0 11/16/19 23 10:53 AM EST documented as of this encounter Care Teams Supervisor Shipping Relationship Specialty Start Date End Date Jeni Garcia MD 230 [place] [address] PCP - General Family Medicine 12/16/15 documented as of this encounter
--- OUTSIDE RECORDS SUMMARY | 2025-01-01 16:32 | XMS_ITS | Encounter Summary ---
Author Organization [employer] [facility] Address 75 [facility] 7t [place] [address] Care Team Providers Care Hot Walker Name Role Phone Jeni Garcia MD Primary Care Provider + Encounter Details Date Type Department Care Team (Late Contact Info) Description 02/25/2023 Orders Only [facility] MEDICINE [address] [place] [address] [phone] Jeni Garcia MD [address] [place] [address] [phone] Obstructive sleep apnea syndrome (Primary Dx) Social [...] Department Care Team (Late Contact Info) Description 01/03/2025 10:45 AM EDT Office Visit [facility] MEDICINE 230 [place] [address] Jeni Garcia MD 230 [place], [place] [phone] 02/15/2025 11:15 AM EDT Office Visit [facility] MEDICINE [address] [place], [place] [phone] Jeni Garcia MD 230 [place], [place] [phone] 05/28/2025 10:00 AM EDT Office Visit [facility] ADULT DENTAL 230 [place], [place] [phone] Blessing Bah documented as of this encounter Visit Diagnoses Diagnosis Obstructive sleep apnea syndrome- Primary Obstructive sleep apnea (adult) (pediatric) documented in this encounter Additional Health Concerns Assessment Noted Time PHQ-9 Depression Total Score: 0 11/16/19 23 10:53 AM EST documented as of this encounter Care Teams Hot Walker Relationship Specialty Start Date End Date Jeni Garcia MD [address] [place] [address] [phone] PCP - General Family Medicine 12/16/15 documented as of this encounter
--- OUTSIDE RECORDS SUMMARY | 2025-01-01 16:32 | XMS_ITS | Encounter Summary ---
Author Organization [email or web address] [facility] Address 75 [facility] 7t [place] [address] Care Team Providers Care Pediatric Geneticist Name Role Phone Jeni Garcia MD Primary Care Provider + Reason for Visit * Reason Onset Date Comments C Pap 02/22/2023 Encounter Details Date Type Department Care Team ([facility] st Contact Info) Description 02/22/2023 Telephone [facility] MEDICINE 230 [place], [place] [phone] Jeni Garcia MD 230 [place], [place] [phone] C Pap Social History Tobacco Use Types [...] If any questions please contact pt at [phone] (citizen of [place] speaking) * Telephone Encounter - Temi Bojorquez - 02/22/2023 2:44 PM EDT Tc from Pt requesting a script for Cpap Machine talk on appt on 02/15 with provider. Pt give fax number to send script to [facility] # [phone]. PCP Dr. Garcia documented in this encounter Plan of Treatment Upcoming Encounters Date Type Department Care Team (Late st Contact Info) Description 01/03/2025 10:45 AM EDT Office Visit [facility] MEDICINE [address] [place] [address] Jeni Garcia MD 230 [place] [address] 02/15/2025 11:15 AM EDT Office Visit [facility] MEDICINE [address] [place] [address] Jeni Garcia MD [address] [place] [address] 05/28/2025 10:00 AM EDT Office Visit [facility] ADULT DENTAL [address] [place] [address] Blessing Bah documented as of this encounter Visit Diagnoses Not on filedocumented in this encounter Additional Health Concerns Assessment Noted Time PHQ-9 Depression Total Score: 0 11/16/19 10:53 AM EST documented as of this encounter Care Teams Pediatric Geneticist Relationship Specialty Start Date End Date Jeni Garcia MD [address] [place] [phone] PCP - General Family Medicine 12/16/15 documented as of this encounter
--- OUTSIDE RECORDS SUMMARY | 2025-01-01 16:33 | XMS_ITS | Encounter Summary ---
Author Organization [employer] [facility] Address 75 [facility] 7t [place] [address] Care Team Providers Care Event Host Name Role Phone Jeni Garcia MD Primary Care Provider + Encounter Details Date Type Department Care Team ([facility] Contact Info) Description 04/04/2023 Orders Only [facility] MEDICINE [address] [place] [address] [phone] Jeni Garcia MD [address] [place] [address] [phone] Social History Tobacco Use Types Packs/Day Years [...] Upcoming Encounters Date Type Department Care Team ([facility] Contact Info) Description 01/03/2025 10:45 AM EDT Office Visit [facility] MEDICINE [address] [place] [phone] Jeni Garcia MD 230 [place] [address] 02/15/2025 11:15 AM EDT Office Visit [facility] MEDICINE [address] [place] [address] Jeni Garcia MD 230 [place] [address] 05/28/2025 10:00 AM EDT Office Visit [facility] ADULT DENTAL [address] [place] [address] Blessing Bah documented as of this encounter Visit Diagnoses Not on filedocumented in this encounter Additional Health Concerns Assessment Noted Time PHQ-9 Depression Total Score: 0 11/16/19 23 10:53 AM EST documented as of this encounter Care Teams Event Host Relationship Specialty Start Date End Date Jeni Garcia MD [address] [place] [address] PCP - General Family Medicine 12/16/15 documented as of this encounter
--- OUTSIDE RECORDS SUMMARY | 2025-01-01 16:33 | XMS_ITS | Encounter Summary ---
Author Organization [employer] Address [address] [facility] 7t [place] [address] Care Team Providers Care Autoglazier Name Role Phone Jeni Garcia MD Primary Care Provider + Reason for Visit * Reason Onset Date Comments Hospital Follow-up 12/24/2024 Encounter Details Date Type Department Care Team ([facility] st Contact Info) Description 12/24/2024 Telephone [facility] MEDICINE [address] [place], [place] [phone] Jeni Garcia MD [address] [place], [place] [phone] Hospital Follow-up Social History Tobacco Use Types [...] encounter Miscellaneous Notes * Telephone Encounter - Nancy Newberry RN - 12/25/2024 2:37 PM EDT Call received from Patient and Daughter, Kimberly. Patient had a coronary event during a cruise and Patient was transported to the nearest hospital in [place]. Medical care payment was required prior tocare and treatment/ Procedures. Initially Daughter was attempting to get clearance to transport [place] back to the [place] by emergency air travel but was unable to get clearance prior to surgery. Patient did have surgery yesterday and is doing well but in a lot of pain. Surgeon is planing to dischargePatient 12/27/24. Daughter plans of flying home with Patient as soon as she can following discharge. Kimberly is requesting a hospital follow up with PCP ron. Daughter will also be scheduling a follow up with Patient's Oncology Pharmacist but needs the number as she does not have any of the information in [place]. Contact number to Oncology Pharmacist provided to Kimberly based on last Cardiology notes in medical record. HDF scheduled with PCP for 01/03/25 at 10:45am. Kimberly agreeable and will call to cancel if travel gets delay any further. Kimberly also is collecting all medical documentation in anticipation for follow up appts. Will forward to Clinical Care Coordinators for tracking purposes. * Telephone Encounter - Jaden Hawkins - 12/24/2024 4:37 PM EDT Daughter returning call . States mother going into a procedure now . Will be waiting for a call back * Telephone Encounter - Nancy Newberry RN - 12/24/2024 2:19 PM EDT Calls attempted to all contact numbers, Voicemails left on 2 numbers for calls back to Red Team Nurses. ----- Message from Jeni Garcia MD sent at 12/24/2024 1:06 PM EDT ----- See addendum to yesterday's note form Dr Stoner Progress Notes Makayla Stoner MD at 12/23/2024 11:30 AM Status: Sign when Signing Visit Call received yesterday from Triage Alexandra. I was informed that Ms Joan Armendariz had chest pain while in a cruise ship in [facility]. She was at a hospital. Her daughter wanted the hospital to release her to back to the [facility]. She has findings suggestive of an ACS and was recommended over there to get appropriate treatment prior to returning to the [place]. Her daughter wanted her PCP to reviewher records to authorize her to live the hospital against the recommendation of the Medical team incharge over there. I myself could not make a decision given the fact that I did not see her and Does not have any records available. I defer the management to the primary team taking care of her overt here in [place]. Jeni Garcia MD at 12/23/2024 11:30 AM Status: Sign when Signing Visit Note form provider director of recreation therapy reviewed re patient with possible ACS during a cruise in . Please contact the family and tell them that I can not over ride a doctor's evaluation without seeing the patient first as the current condition can probably change the general prognosis of any othercondition that she might have had at our last visit. Please tell them to consider a second opinion in instead if that's a concern but that I advise them to fu with their POC and transfer her back to [place] when medically cleared to do so. documented in this encounter Plan of Treatment Upcoming Encounters Date Type Department Care Team (Late st Contact Info) Description 01/03/2025 10:45 AM EDT Office Visit [facility] MEDICINE [address] [place] [phone] Jeni Garcia MD [address] [place] [address] 02/15/2025 11:15 AM EDT Office Visit [facility] MEDICINE [address] [place] [address] Jeni Garcia MD [address] [place], [place] [phone] 05/28/2025 10:00 AM EDT Office Visit [facility] ADULT DENTAL [address] [place], [place] [phone] Blessing Bah documented as of this encounter Visit Diagnoses Not on filedocumented in this encounter Additional Health Concerns Assessment Noted Time PHQ-9 Depression Total Score: 0 11/16/19 23 10:53 AM EST documented as of this encounter Care Teams Autoglazier Relationship Specialty Start Date End Date Jeni Garcia MD [address] [place] [phone] PCP - General Family Medicine 12/16/15 documented as of this encounter
--- OUTSIDE RECORDS SUMMARY | 2025-01-01 16:33 | XMS_ITS | Encounter Summary ---
Author Organization [employer] Address [address] [facility] [address] 7[address] [place] [address] Care Team Providers Care Mailroom Coordinator Name Role Phone Jeni Garcia MD Primary Care Provider + Encounter Details Date Type Department Care Team (Late st Contact Info) Description 12/08/2024 Telephone [facility] [address] [place] [address] [phone] Jeni Garcia MD [address] [place], [place] [phone] Social History Tobacco Use Types Packs/Day Years [...] with bronchitis, sp Influenza URI (dx at [facility] on 11/29). Please call tomorrow(12/08/24) re [...] Description 01/03/2025 10:45 AM EDT Office Visit [facility] MEDICINE [address] [place] [address] [phone] Jeni Garcia MD [address] [place] [phone] 02/15/2025 11:15 AM EDT Office Visit [facility] MED[facility] [address] [place] [phone] Jeni Garcia MD [address] [place] [address] 05/28/2025 10:00 AM EDT Office Visit [facility] ADULT DENTAL [address] [place] [address] Blessing Bah documented as of this encounter Visit Diagnoses Not on filedocumented in this encounter Additional Health Concerns Assessment Noted Time PHQ-9 Depression Total Score: 0 11/16/19 23 10:53 AM EST documented as of this encounter Care Teams Mailroom Coordinator Relationship Specialty Start Date End Date Jeni Garcia MD [address] [place] [address] PCP - General Family Medicine 12/16/15 documented as of this encounter
--- OUTSIDE RECORDS SUMMARY | 2025-01-01 16:33 | XMS_ITS | Encounter Summary ---
Author Organization [employer] [facility] Address [address] [facility] 7t [place] [address] Care Team Providers Care Scheduler Conveyor Name Role Phone Jeni Garcia MD Primary Care Provider + Encounter Details Date Type Department Care Team (Latest Contact Info) Description 04/28/2021 Abstract [facility] CONVERSIONS Dental, Provider, DDS Social History Tobacco [...] Description 01/03/2025 10:45 AM EDT Office Visit [facility] MEDICINE [address] [place] [phone] Jeni Garcia MD [address] [place] [phone] 02/15/2025 11:15 AM EDT Office Visit [facility] MEDICINE [address] [place] [phone] Jeni Garcia MD [address] [place] [phone] 05/28/2025 10:00 AM EDT Office Visit [facility] ADULT DENTAL [address] [place] [phone] Blessing Bah documented as of this encounter Visit Diagnoses Not on filedocumented in this encounter Care Teams Scheduler Conveyor Relationship Specialty Start Date End Date Jeni Garcia MD [address] [place] [phone] PCP - General Family Medicine 12/16/15 documented as of this encounter
--- OUTSIDE RECORDS SUMMARY | 2025-01-01 16:33 | XMS_ITS | Encounter Summary ---
Author Organization [employer] Address [address] [facility] 7t [place] [address] Care Team Providers Care Ship Rigger Name Role Phone Jeni Garcia MD Primary Care Provider + Reason for Visit * Reason Comments Med Refill Encounter Details Date Type Department Care Team (Late st Contact Info) Description 12/18/2024 Refill [facility] MEDICINE [address] [place], [place] [phone] Jeni Garcia MD [address] [place], [place] [phone] Primary hypertension Social History Tobacco Use Types Packs/Day Years [...] Description 01/03/2025 10:45 AM EDT Office Visit [facility] MEDICINE [address] [place] [phone] Jeni Garcia MD [address] [place] [address] 02/15/2025 11:15 AM EDT Office Visit [facility] MEDICINE [address] [place] [phone] Jeni Garcia MD [address] [place], [place] [phone] 05/28/2025 10:00 AM EDT Office Visit [facility] ADULT DENTAL [address] [place] [phone] Blessing Bah documented as of this encounter Visit Diagnoses Diagnosis Primary hypertension Unspecified essential hypertension documented in this encounter Additional Health Concerns Assessment Noted Time PHQ-9 Depression Total Score: 0 11/16/19 23 10:53 AM EST documented as of this encounter Care Teams Ship Rigger Relationship Specialty Start Date End Date Jeni Garcia MD [address] [place] [address] [phone] PCP - General Family Medicine 12/16/15 documented as of this encounter
--- OUTSIDE RECORDS SUMMARY | 2025-01-01 16:33 | XMS_ITS | Encounter Summary ---
Author Organization [employer] Address [address] [facility] 7t [place] [address] Care Team Providers Care Care Management Coordinator Name Role Phone Jeni Garcia MD Primary Care Provider + Reason for Visit * Reason Comments reminder HDF schedule reminde r Encounter Details Date Type Department Care Team ([facility] st Contact Info) Description 12/31/2024 Patient Outreach [facility] MEDICINE [address] [place], [place] [phone] Jeni Garcia MD [address] [place], [place] [phone] reminder (HDF schedule reminder) Social History Tobacco Use Types Packs/Day Years [...] AM EDT documented as of this encounter Progress Notes * Marlen Hunter - 12/31/2024 9:00 AM EDT Patient daughter Kimberly was called after care coordinators received an internal message from Sayra Leonard PharmD requesting to retrieve discharge summary from a [facility] visit. Care coordinators are unable to gain access to summary from [place]; however, patients daughter Kimberly reported [place] and has in hand the discharge summary to submit to medical records for scanning into patient chart. Patient will visit [facility] today to submit summary. documented in this encounter Plan of Treatment Upcoming Encounters Date Type Department Care Team (Late st Contact Info) Description 01/03/2025 10:45 AM EDT Office Visit [facility] MEDICINE [address] [place] [phone] Jeni Garcia MD [address] [place] [address] 02/15/2025 11:15 AM EDT Office Visit [facility] MEDICINE [address] [place] [address] Jeni Garcia MD [address] [place] [address] 05/28/2025 10:00 AM EDT Office Visit [facility] ADULT DENTAL [address] [place] [address] Blessing [place] documented as of this encounter Visit Diagnoses Not on filedocumented in this encounter Additional Health Concerns Assessment Noted Time PHQ-9 Depression Total Score: 0 11/16/19 23 10:53 AM EST documented as of this encounter Care Teams Care Management Coordinator Relationship Specialty Start Date End Date Jeni Garcia MD [address] [place] [address] PCP - General Family Medicine 12/16/15 documented as of this encounter
--- OUTSIDE RECORDS SUMMARY | 2025-01-01 16:33 | XMS_ITS | Encounter Summary ---
Author Organization [employer] Address [address] [facility] 7t [place] [address] Care Team Providers Care Director Athletic Name Role Phone Jeni Garcia MD Primary Care Provider + Reason for Visit * Reason Comments Med Refill Encounter Details Date Type Department Care Team ([facility] st Contact Info) Description 12/18/2024 Refill [facility] MEDICINE [address] [place], [place] [phone] Rose De La Rosa MD [address] [place], [place] [phone] Primary hypertension Social History Tobacco Use Types [...] Office Visit [facility] MEDICINE [address] [place] [phone] Jeni Garcia MD [address] [place] [phone] 02/15/2025 11:15 AM EDT Office Visit [facility] MEDICINE [address] [place] [phone] Jeni Garcia MD [address] [place] [address] [phone] 05/28/2025 10:00 AM EDT Office Visit [facility] ADULT DENTAL [address] [place] [phone] Blessing Bah documented as of this encounter Visit Diagnoses Diagnosis Primary hypertension Unspecified essential hypertension documented in this encounter Additional Health Concerns Assessment Noted Time PHQ-9 Depression Total Score: 0 11/16/19 23 10:53 AM EST documented as of this encounter Care Teams Director Athletic Relationship Specialty Start Date End Date Jeni Garcia MD [address] [place] [address] [phone] PCP - General Family Medicine 12/16/15 documented as of this encounter
--- OUTSIDE RECORDS SUMMARY | 2025-01-01 16:34 | XMS_ITS | Encounter Summary ---
Author Organization [employer] [facility] Address [address] [place] [address] 7t [place] [address] Care Team Providers Care Sleep Tech Name Role Phone Jeni Garcia MD Primary Care Provider + Encounter Details Date Type Department Care Team (Late st Contact Info) Description 09/27/2022 [facility] Health Information Management [address] [place], [place] [phone] Jeni Garcia MD [address] [place] [address] [phone] Social History Tobacco Use Types Packs/Day Years [...] Description 01/03/2025 10:45 AM EDT Office Visit [facility] MEDICINE [address] [place] [address] [phone] Jeni Garcia MD [address] [place] [address] [phone] 02/15/2025 11:15 AM EDT Office Visit [facility] MEDICINE [address] [place] [address] [phone] Jeni Garcia MD [address] [place] [address] [phone] 05/28/2025 10:00 AM EDT Office Visit [facility] ADULT DENTAL [address] [place] [address] Blessing Bah documented as of this encounter Visit Diagnoses Not on filedocumented in this encounter Care Teams Sleep Tech Relationship Specialty Start Date End Date Jeni Garcia MD [address] [place] [address] PCP - General Family Medicine 12/16/15 documented as of this encounter
--- OUTSIDE RECORDS SUMMARY | 2025-01-01 16:34 | XMS_ITS | Clinical Summary ---
Author Organization [employer] Address [address] [facility] 7[address] [place] [address] Care Team Providers Care Restaurant Line Cook Name Role Phone Jeni Garcia MD Primary [...] 12 HOURS FOR 30 DAYS 023 Active loratadine (Claritin) 10 MG tablet TAKE [...] tip and replace cap. 16 mL 025 Active albuterol 1.25 MG/3ML nebulizer solution Take 3 mL (1.25 mg) by nebulization every 6 (six) hours if needed for wheezing. 75 mL 3 025 2025 Active azithromycin (Zithromax) 250 MG tablet Take 2 tabs PO daily x 1d then 1 tab PO daily on D2 to D5 6 tablet 025 Active losartan (Cozaar) 100 MG tabletIndications :Primary hypertension TAKE 1 TABLET BY MOUTH EVERY DAY IN THE MORNING 90 tablet 1 025 Active carvedilol (Coreg) 6.25 MG tabletIndications :Primary hypertension TAKE 1 TABLET BY MOUTH WITH BREAKFAST AND EVENING MEAL 180 tablet 1 025 Active carvedilol (Coreg) 6.25 MG tabletIndications :Primary hypertension Take 1 tablet (6.25 mg) by mouth with breakfast and with evening meal. 60 tablet 11 024 2024 Discontinued(R eorder (will not trigger notification to Pharmacy)) fluticasone (Flonase) 50 MCG/ACT nasal spray SPRAY 2 SPRAYS INTO EACH NOSTRIL IN THE MORNING SHAKE GENTLY/PRIME BEFORE 1ST USE&CLEAN TIP 48 mL 024 2024 Discontinued(R eorder (will not trigger notification to Pharmacy)) losartan (Cozaar) 100 MG tabletIndications :Primary hypertension TAKE 1 TABLET BY MOUTH EVERY DAY IN THE MORNING 90 tablet 1 024 2024 Discontinued methylPREDNISolon e (Medrol Dospak) 4 MG tablets Follow schedule on package instructions 21 tablet 025 2024 Active Problems Problem Noted Date Diagnosed Date [...] rest at home. FU on Tuesday with [employer]. Will call tomorrow for health status check. [...] exercise, life style modifications, diet, referral to billing specialist. Discussed re lower calorie intake, increase [...] Encounters Date Type Department Care Team Description 12/31/2024 Patient Outreach [facility] [address] [place] [address] [phone] Jeni Garcia MD reminder (HDF schedule reminder) 12/24/2024 Telephone [facility] [address] [place] [address] [phone] Jeni Garcia MD Hospital Follow-up 12/18/2024 Refill [facility] [address] [place] [address] [phone] Jeni Garcia MD Primary hypertension 12/18/2024 Refill [facility] [address] [place] [address] [phone] Rose De La Rosa MD Primary hypertension 12/08/2024 Telephone [facility] [address] [place] [address] [phone] Jeni Garcia MD 12/07/2024 12:15 PM EST Office Visit [facility] [address] [place] [address] [phone] Jeni Garcia MD Influenza A (Primary Dx); Bronchitis; Pulmonary emphysema, unspecified emphysema type (CMS/HCC); Degeneration of intervertebral disc of lumbar region with discogenic back pain 12/07/2024 Travel 12/05/[address] [phone] Jeni Garcia MD Chart prep 12/04/[address] [phone] Jeni Garcia MD Status Check ED visit 12/04/[address] [phone] Jeni Garcia MD ER Follow-up 11/29/2024 Orders Only GENERIC EXTERNAL DATA DEPARTMENT Provider, Generic External Data 11/28/[address] [phone] Jeni Garcia MD Nurse Triage 11/13/2024 1:00 PM EST Office Visit [facility] [address] [place] [phone] [facility] Dental calculus (Primary Dx); Dental plaque; Normal oral exam 11/13/[address] [phone] Jeni Garcia MD DCF Form (I called [...] to call the forms department at ext [phone].) 11/01/2024 Orders Only [facility] External Provider, [facility] 11/01/[address] [phone] Jeni Garcia MD Acquired hypothyroidism; Gastroesophageal reflux [...] 01/03/2025 10:45 AM EDT Office Visit [facility] [address] [place] [address] [phone] Jeni Garcia MD [address] [place] [address] 02/15/2025 11:15 AM EDT Office Visit [facility] [address] [place] [address] [phone] Jeni Garcia MD [address] [place] [phone] 05/28/2025 10:00 AM EDT Office Visit [facility] [address] [place] [phone] Bless[facility] Health Maintenance Due Date Last [...] PM EST Narrative 12/07/2024 1:32 PM EST ?[facility] ?[address] ?[place] [address] ?XRay Report ? Signed ? Patient: Joan Armendariz ?MR#: [id number] ?? 594 ? : 1945 ?Acct:[id number] ? Age/Sex: 79 / F ?ADM Date: 12/07/24 ? Loc: HO.HHCX ? Attending Dr: Jeni Garcia MD ? Ordering Physician: Jeni Garcia MD ?? Date of Service: 12/07/24 ?? Procedure(s): XR chest 2V ?? Accession Number(s): [id number] ? cc: Jeni Garcia MD ? EXAMINATION: [...] DD/ 1246 ? TD/TT: 12/07/24 1300 ? Lithographic Printing Machinist: ? Procedure Note Donbrennenter, Image - 12/07/[address] [address] XRay Report Signed Patient: Joan Armendariz RMR#: [id number] : 1945cct:[id number] Age/Sex: 79 / FADM Date: 12/07/24 [facility]: Jeni Garcia MD Ordering Physician: Jeni Garcia MD Date of Service: 12/07/24 Procedure(s): XR chest 2V Accession Number(s): [id number] cc: Jeni Garcia MD EXAMINATION: XR CHEST [...] 12/07/24 1330 DD/ 1246 TD/TT: 12/07/24 1300 Lithographic Printing Machinist: Jeni Garcia MD IMG XR PROCEDURES Final Result * (ABNORMAL) SARS-CoV-2 RNA, Influenza A/B, and RSV RNA, Ql NAAT (11/29/2024 7:15 PM EST) [facility] Influenza A PCR POSITIVE(A) Negative [facility] Influenza B PCR NEGATIVE Negative [facility] Resp Syncy Virus RNA Qual PCR NEGATIVE Negative [facility] SARS COV2 PCR NEGATIVE Negative [facility] Comment:All test results mus t be [...] use by authorized laboratories.Testing performed on the [employer] GeneXpert utilizingreal-time RT-PCR.All SARS CoV2 and positive influenza A/B results arereported to [facility]. 11/29/2024 7:15 PM EST 11/29/2024 7:17 PM EST [employer] External Data Provider LAB MICROBIOLOGY - GENERAL ORDERABLES Final Result [facility] [address] [place] [phone] * High Sensitivity Troponin I (11/29/2024 7:06 PM EST) [facility] TROPONIN I HIGH SENSITIVITY 4.3 <3.5 - 17.0 ng/L [facility] Comment:The [place] high sens itivity Troponin-I results should beused in conjunction with other diagnostic information suchas ECG, clinical observations and information, and patientsymptoms to aid in the diagnosis of [place]. 11/29/2024 7:06 PM EST 11/29/2024 7:10 PM EST Generic External Data Provider LAB BLOOD ORDERAB LES Final Result [facility] [address] [place], [place] [phone] * (ABNORMAL) CBC auto differential (11/29/2024 7:06 PM EST) White Blood Count 6.9 4.8 - 10.8 X10*3/uL [facility] Red Blood Count 4.37 4.20 - 5.50 X10*6/uL [facility] Hemoglobin 11.8(L) 12.0 - 16.0 g/dl [facility] Hematocrit 37.2 37.0 - 47.0 % [facility] Mean Corpuscular Volume 85.1 80.0 - 98.0 fL [facility] Mean Corpuscular Hemoglobin 27.0 27.0 - 33.0 pg [facility] Mean Corpuscular HGB Conc 31.7 31.0 - 35.0 g/dl [facility] Red Cell Distribution Width 15.8 11.0 - 16.0 % [facility] Platelet Count 177 160 - 400 X10*3/uL [facility] Mean Platelet Volume 11.6 9.4 - 12.3 fL [facility] Neutrophils Percent Auto 72.5 45 - 73 % [facility] Imm Gran Pct Auto 0.6(H) 0.0 - 0.4 % [facility] Lymphocytes Percent Auto 11.7(L) 20 - 40 % [facility] Monocytes Percent Auto 9.9 2 - 11 % [facility] Eosinophils Percent Auto 3.9 0 - 4 % [facility] Basophils Percent Auto 1.4 0 - 2 % [facility] NRBC Pct Auto 0.0 0.0 - 0.2 /100WBC [facility] Neutrophils Absolute Auto 5.0 2.0 - 8.3 x10*3/uL [facility] Imm Gran Abs Auto 0.04(H) 0.00 - 0.03 X10*3/uL [facility] Lymphocytes Absolute Auto 0.8(L) 1.2 - 4.9 X10*3/uL [facility] Monocytes Absolute Auto 0.7 0.1 - 1.2 X10*3/uL [facility] Eosinophils Absolute Auto 0.3 0.0 - 0.4 X10*3/uL [facility] Basophils Absolute Auto 0.1 0.0 - 0.2 X10*3/uL [facility] NRBC Abs Auto 0.000 0.0 - 0.012 X10*3/uL [facility] 11/29/2024 7:06 PM EST 11/29/2024 7:10 PM EST Generic External Data Provider LAB BLOOD ORDERAB LES Final Result Performing Organization Address [facility] de Phone Number [facility] [address] [place] [phone] * (ABNORMAL) Prothrombin Time-INR (11/29/2024 7:06 PM EST) Prothrombin Time 12.6(H) 10.9 - 12.4 SEC [facility] INTERNATIONAL NORM RATIO 1.1 0.9 - 1.1 [facility] Comment:INTERNATIONAL NORMAL IZED RATIO (INR) REFERENCE [...] 7:06 PM EST 11/29/2024 7:10 PM EST [employer] External Data Provider LAB BLOOD ORDERAB LES Final Result Performing Organization Address [facility] de Phone Number [facility] [address] [place] [phone] * (ABNORMAL) Comprehensive Metabolic Panel (11/29/2024 7:06 PM EST) Sodium 137 135 - 145 mmol/L [facility] Potassium 4.0 3.3 - 5.1 mmol/L [facility] Chloride 106 96 - 108 mmol/L [facility] Carbon Dioxide 23 22 - 29 mmol/L [facility] Anion Gap 12 12 - 20 [facility] Urea Nitrogen (BUN) 11 9 - 16 mg/dL [facility] Creatinine, Serum 1.02 0.5 - 1.4 mg/dL [facility] Creatinine Clr Calc Pharmacy 38.3 [facility] Comment:Provided height and weight: 147.32 cm,78.8 kg.eGFR (calculated from the MDRD study equation) and eCrCl(calculated from the Cockcroft-Gault equation) are based ondifferent parameters and may not yield comparable results.If eCrCl result is absurd, please check patient'sheight/weight. Estimated Glomerular Filt Rate 52 [facility] Comment:Chronic Kidney Disea se: Estimated GFR < 60 mL/min/1.27s3Mgrvht Kidney Disease: Estimated GFR < 15 mL/min/1.73m2 Glucose 109 60 - 115 mg/dL [facility] Calcium 8.9 8.4 - 10.2 mg/dL [facility] Bilirubin, Total 0.3 0.0 - 1.0 mg/dL [facility] Aspartate Amino Transferase 35(H) 5 - 31 U/L [facility] Alanine Aminotransferase 24 0 - 31 U/L [facility] Total Protein 8.0 6.5 - 8.0 g/dL [facility] Albumin Level 3.8 3.5 - 5.0 g/dL [facility] Alkaline Phosphatase 64 39 - 117 U/L [facility] 11/29/2024 7:06 PM EST 11/29/2024 7:10 PM EST us Generic External Data Provider LAB BLOOD ORDERAB LES Final Result [facility] [address] [place] [address] [phone] * FL Guidance in Treatment Room (11/01/2024 12:48 PM EST) Anatomical Region Laterality Modality X-Ray Angiograph y 11/01/2024 12:4 8 PM EST Narrative 11/02/2024 1:50 PM EST ? [facility] ?[address] ?[place] [address] ? Fluoroscopy Report ? Signed ? Patient: Armendariz,Joan R ?MR#: [id number] ?? 594 ? : 1945 ?Acct:[id number] ? Age/Sex: 79 / F ?ADM Date: 11/01/24 ? Loc: CF ? Attending Dr: Danis Diamond MD ? Ordering Physician: Nohemy Matthew APRN, CNP ?? Date of Service: 11/01/24 ?? Procedure(s): FL guidance in treatment room ?? Accession Number(s): [id number] ? cc: Jeni Garcia MD; Nohemy Matthew [...] DD/ 1248 ? TD/TT: 11/01/24 1259 ? Lithographic Printing Machinist: ? Procedure Note Willie Maurer - 11/02/[address] [place] [place] [address] Fluoroscopy Report Signed Patient: Joan Armendariz RMR#: [id number] : 1945cct:[id number] Age/Sex: 79 / FADM Date: 11/01/24 Loc: CF Attending Dr: Danis Diamond MD Ordering Physician: Nohemy Matthew APRN, TILE INSTALLER Date of Service: 11/01/24 Procedure(s): FL guidance in treatment room Accession Number(s): [id number] cc: Jeni Garcia MD; Nohemy Matthew APRN, TILE INSTALLER EXAMINATION: FL GUIDANCE ONLY HISTORY: M54.16 - [...] by: Bony Ricks MD 11/02/2024 01:47 PM [facility] Dictated By: Bony Ricks MD Signed By: <Electronically signed by Bony Ricks MD in OV> 11/02/24 1347 DD/ 1248 TD/TT: 11/01/24 1259 Lithographic Printing Machinist: [facility] External Provider IMG IR PROCEDURES Edited Result - Final * BI Mammogram Screening Tomosynthesis Bilateral (01/04/2024 12:30 PM EDT) Anatomical Region Laterality Modality Breast Bilateral Mammography 01/04/2024 12:3 0 PM EDT Narrative 01/25/2024 12:29 AM EDT ? [facility] ? [address] ?[place] [address] ? Mammography Report ? Signed ? Patient: Armendariz,Joan R ?MR#: [id number] ?? 594 ? : 1945 ?Acct:[id number] ? Age/Sex: 78 / F ?ADM Date: 03/20/24 ? Loc: HO.MAMMO ? Attending Dr: Jeni Garcia MD ? Ordering Physician: Jeni Garcia MD ?Results: 1Ne ?? gative ? Date of Service: 01/04/24 ?Follow Up: 1 Year From Orig ?? inal Mammogram ? Procedure(s): MM tomosynthesis screening BI ?? Accession Number(s): [id number] ? cc: Jeni Garcia MD ? EXAMINATION: [...] by Marimar Patel MD in OV> ? 04/08/09 0025 ? DD/ 1230 ? TD/TT: ? Lithographic Printing Machinist: ? Procedure Note Donbrennenter, Image - 01/25/2024 [facility] [address] [place] [address] Mammography Report Signed Patient: Joan Armendariz RMR#: [id number] : 3Acct:[id number] Age/Sex: 78 / FADM Date: 01/04/24 Loc: [facility] Attending Dr: Jeni Garcia MD Ordering Physician: Jeni Garcia MDResults: 1Ne gative Date of Service: 01/04/24Follow Up: 1 Year From Orig inal Mammogram Procedure(s): MM tomosynthesis screening BI Accession Number(s): [id number] cc: Jeni Garcia MD EXAMINATION: MM SCREENING [...] in OV> 01/25/24 0025 DD/ 1230 TD/TT: Lithographic Printing Machinist: Jeni Garcia MD IMG BI PROCEDURES Final [...] AM EDT) Cholesterol, Total 141 <200 mg/dL [facility] [place] [facility] HDL Cholesterol 54 > OR = 50 mg/dL [facility] [place] [facility] Triglycerides 99 <150 mg/dL [facility] [place] [facility] LDL Cholesterol 69 mg/dL (calc) [facility] Comment: Reference range: <100 Desirable range <100 mg/dL for primary prevention; ?? <70 mg/dL for patients with CHD or diabetic patients with > or = 2 CHD risk factors. LDL-C is now calculated using the Bebeto-Casandra calculation, which is a validated novel method providing better accuracy than the Friedewald equation in the estimation of LDL-C. Bebeto SS et al. [place]. 2013;310(19): 5914-9773 (http://education.[employer]/faq/LBS875) Chol/HDLC Ratio 2.6 <5.0 (calc) [facility] Non-HDL Cholesterol 87 <130 mg/dL (calc) [facility] Comment: For patients with diabetes plus 1 major ASCVD risk factor, treating to a non-HDL-C goal of <100 mg/dL (LDL-C of <70 mg/dL) is considered a therapeutic option. 02/15/2023 11:0 9 AM EDT 02/15/2023 11:10 AM EDT Narrative [facility] - 02/16/2023 2:24 AM EDT FASTING:NO FASTING: NO Jeni Garcia MD LAB BLOOD ORDERABLES Fin al Result [facility] [address], [place] [phone] [facility] [address] [place] [phone] from Last 3 Months or Most Recently Relevant to Health Maintenance Insurance [facility] DUAL COMPLETE [facility] Care Teams Restaurant Line Cook Relationship Specialty Start Date End Date Jeni Garcia MD [address] [place] [phone] PCP - General Family Medicine 12/16/15
--- OUTSIDE RECORDS SUMMARY | 2025-01-01 16:34 | XMS_ITS | Clinical Summary ---
Author Organization [facility] Address [address] [facility] [address] [place] [address] Phone Care Team Providers Care Rn Appeals Name Role Phone Jeni Garcia MD Primary Care Provider [phone] Allergies Active Allergy Reactions Criticality Noted Date Comments Codeine 09/03/2021 Hydrocodone Itching 10/09/2014 Morphine 09/03/2021 Oxycodone Hives 09/04/2013 Oxycodone-Acetaminophen 09/03/2021 Medications folic acid (FOLVITE) 1 MG tabletIndication s:Essential (primary) hypertension Take 1 tablet by mouth daily 07/02/20 21 Active levothyroxine (SYNTHROID, LEVOTHROID) 25 MCG tabletIndication s:Essential (primary) hypertension Take 1 tablet by mouth daily 06/01/20 21 Active methotrexate 2.5 MG tabletIndication s:Essential (primary) hypertension Take 1 tablet by mouth daily 07/02/20 21 Active omeprazole (PriLOSEC) [address] capsuleIndicatio ns:Essential (primary) hypertension Take 1 capsule by mouth 1 (one) time each day 06/24/20 21 Active losartan (COZAAR) 100 MG tabletIndication s:Essential (primary) hypertension Take 100 mg by mouth 1 (one) time each day Active albuterol HFA (PROVENTIL HFA;VENTOLIN HFA) 108 (90 Base) MCG/ACT inhalerIndicatio ns:Essential (primary) hypertension Inhale 2 puffs every 6 (six) hours if needed for wheezing Active acetaminophen (TYLENOL) 325 MG tabletIndication s:Essential (primary) hypertension Take by mouth every 6 (six) hours if needed for mild pain Active montelukast (SINGULAIR) 10 MG tabletIndication s:Essential (primary) hypertension Take 10 mg by mouth every night Active meclizine (ANTIVERT) 25 MG tablet [place] 1 TABLETA POR LA BOCA STEVE VECES AL EDITA CUANDO SEA NECESARIO PARA MAREO 08/24/20 21 Active gabapentin (NEURONTIN) 300 MG capsule Take 1 capsule (300 mg total) by mouth 1 (one) time each day with dinner 30 capsule 11 03/04/20 22 Active Advair HFA 115-21 MCG/ACT inhaler INHALE 2 PUFF EVERY 12 HOURS FOR 30 DAYS 03/29/20 23 Active Cholecalciferol (Vitamin D3) 125 MCG (5000 UT) capsule TAKE 1 CAPSULE BY MOUTH EVERY TUESDAY AND TUESDAY 24 capsule 1 12/19/19 25 Active Cholecalciferol (Vitamin D) 125 MCG (5000 UT) capsule Take 5,000 Units by mouth every Tuesday and 30 capsule 10/04/20 24 025 Discontinued Active Problems Problem Noted [...] Encounters Date Type Department Care Team Description 12/17/2024 Refill [facility] [address] [phone] Luke Quinn MD from Last 3 Months Immunizations Name Administration [...] Office Visit [facility] [address] [phone] Luke Quinn MD [address] [phone] Health Maintenance Due Date Last Done Comments Influenza Vaccine (#1) 2024 4, 07/22/2022, 09/23/2021, Additional history exists Diabetes: Ophthalmology Exam 12/17/2024 Diabetes: Pedal Pulse Checked 12/17/2024 Diabetes: Sensory Foot Exam 12/17/2024 Diabetes: Visual Foot Exam 12/17/2024 Diabetes: Hemoglobin A1C 12/24/2024 09/25/2024, 1112/2022 Pneumococcal Vaccine: 65+ Years Completed 10/31/2023 Hepatitis B Vaccine Aged Out No longe r eligible based on patient's age to complete this topic Procedures Procedure Name Priority Date/Time Associated Diagnosis Comments HEMOGLOBIN A1C Routine 09/25/2024 10:16 AM EST Hypertension from Last 3 Months or Most Recently Relevant to Health Maintenance Results * (ABNORMAL) Hemoglobin A1c (09/25/2024 10:16 AM EST) Hemoglobin A1C 6.3(H) 4.8 - 5.6 % Nia Hauser Comment: ? Prediabetes: 5.7 - 6.4 ? Diabetes: >6.4 ? Glycemic control for adults with diabetes: <7.0 Blood (Blood, Venous) 09/25/2024 10:16 AM EST 09/25/2024 Luke Quinn MD LAB BLOOD ORDERABLES Final Result [facility] Nia Hauser [address] [place] [phone] from Last 3 Months or Most Recently Relevant to Health Maintenance Insurance DUAL [employer] DUAL [employer] Care Teams Rn Appeals Relationship Specialty Start Date End Date Jeni Garcia MD [address] [place] [address] PCP - General Internal Medicine 08/06/21
== END 2025-01-01 14:36 | disposition home or self-care (01) ==
LOC: HO.HNS 13:54
PROVIDERS: PCP Internal Medicine; Visit Provider Physician Assistant
DX: M54.16 Radiculopathy, lumbar region (principal)
CPT/HCPCS: 99212

== ENCOUNTER → 2025-01-01 13:53 | Outpatient (BNVA) | payer OTHER, SELFPAY | PROVIDERS: PCP Internal Medicine; Visit Provider Physician Assistant | DX: M54.16 Radiculopathy, lumbar region (principal) | CPT/HCPCS: 99212 ==

== ENCOUNTER 2025-01-03 12:30 | Outpatient (REF) | payer OTHER, SELFPAY ==
[2025-01-03 13:11] LABS: MANUAL DIFF FLAG NO
[2025-01-03 13:24] LABS: Basophils Percent Auto 0.1 % (0-2); Hematocrit 34.6 % (37.0-47.0); Hemoglobin 11.4 g/dl (12.0-16.0); Imm Gran Abs Auto 0.11 X10*3/uL (0.00-0.03); Imm Gran Pct Auto 0.6 % (0.0-0.4); Lymphocytes Absolute Auto 1.3 X10*3/uL (1.2-4.9); Lymphocytes Percent Auto 7.5 % (20-40); Mean Corpuscular HGB Conc 32.9 g/dl (31.0-35.0); Mean Corpuscular Hemoglobin 27.1 pg (27.0-33.0); Mean Corpuscular Volume 82.2 fL (80.0-98.0); Mean Platelet Volume 11.5 fL (9.4-12.3); Monocytes Absolute Auto 0.5 X10*3/uL (0.1-1.2); Monocytes Percent Auto 2.9 % (2-11); Neutrophils Absolute Auto 15.6 x10*3/uL (2.0-8.3); Neutrophils Percent Auto 88.9 % (45-73); Platelet Count 268 X10*3/uL (160-400); Red Blood Count 4.21 X10*6/uL (4.20-5.50); Red Cell Distribution Width 17.1 % (11.0-16.0); White Blood Count 17.5 X10*3/uL (4.8-10.8)
[2025-01-03 13:56] LABS: Anion Gap 16 (12-20); Blood Urea Nitrogen 25 mg/dL (9-16); Calcium 9.4 mg/dL (8.4-10.2); Carbon Dioxide 25 mmol/L (22-29); Chloride 98 mmol/L (96-108); Estimated Glomerular Filt Rate 43; Glucose Random 111 mg/dL (60-115); Potassium 3.7 mmol/L (3.3-5.1); Sodium 135 mmol/L (135-145)
[2025-01-03 14:08] LABS: TSH reflex Free T4 0.65 uIU/mL (0.32-4.0)
== END 2025-01-03 12:31 | disposition home or self-care (01) ==
LOC: HO.HHCL 12:30
PROVIDERS: Visit Provider Internal Medicine
DX: N17.9 Acute kidney failure, unspecified (principal); I25.10 Atherosclerotic heart disease of native coronary artery without angina pectoris; I10 Essential (primary) hypertension; D72.825 Bandemia
CPT/HCPCS: 36415; 80048; 84443; 85025

== ENCOUNTER 2025-01-04 09:13 | Outpatient (REF) | payer OTHER, SELFPAY ==
--- NOTE | ~2025-01-04 | XR_ITS ---
EXAMINATION: XR CHEST 2 VIEWS HISTORY: Leukocytosis + weakness/status post an NSTEMI COMPARISON: Comparison is made with the prior examination dated 12/07/2024. FINDINGS: PA and lateral views of the chest are submitted. There is linear scarring in the lingula. The lungs are otherwise clear. There is no pleural effusion, pneumothorax, or pulmonary vascular congestion. The heart is normal in size. The aorta is calcified. The patient is status post reverse left total shoulder arthroplasty. There is degenerative disc disease of the spine. The patient is status post lower thoracic kyphoplasty. XR/XR chest 2V IMPRESSION: No acute cardiopulmonary abnormality. Electronically signed by: Bony Ricks MD 01/04/2025 09:36 AM EDT RP
== END 2025-01-04 09:14 | disposition home or self-care (01) ==
LOC: HO.HHCX 09:13
PROVIDERS: Visit Provider Internal Medicine
DX: Z13.89 Encounter for screening for other disorder (principal)
CPT/HCPCS: 71046

== ENCOUNTER → 2025-01-04 09:14 | Outpatient (BNV) | payer OTHER, SELFPAY | PROVIDERS: Visit Provider Radiology Diagnostic Radiology | DX: D72.829 Elevated white blood cell count, unspecified (principal); R53.1 Weakness | CPT/HCPCS: 71046 ==

== ENCOUNTER 2025-01-04 10:15 | Outpatient (REF) | payer OTHER, SELFPAY ==
[2025-01-04 11:11] LABS: MANUAL DIFF FLAG NO
[2025-01-04 11:30] LABS: Basophils Percent Auto 0.1 % (0-2); Hematocrit 33.3 % (37.0-47.0); Imm Gran Abs Auto 0.09 X10*3/uL (0.00-0.03); Imm Gran Pct Auto 0.6 % (0.0-0.4); Lymphocytes Absolute Auto 1.2 X10*3/uL (1.2-4.9); Lymphocytes Percent Auto 7.9 % (20-40); Mean Corpuscular Volume 81.6 fL (80.0-98.0); Mean Platelet Volume 12.1 fL (9.4-12.3); Monocytes Absolute Auto 0.7 X10*3/uL (0.1-1.2); Monocytes Percent Auto 4.8 % (2-11); Neutrophils Absolute Auto 12.8 x10*3/uL (2.0-8.3); Neutrophils Percent Auto 86.6 % (45-73); Platelet Count 265 X10*3/uL (160-400); Red Blood Count 4.08 X10*6/uL (4.20-5.50); Red Cell Distribution Width 16.6 % (11.0-16.0); White Blood Count 14.8 X10*3/uL (4.8-10.8)
[2025-01-04 12:14] LABS: Erythrocyte Sedimentation Rate 34 MM/HR (0-20)
== END 2025-01-04 10:16 | disposition home or self-care (01) ==
LOC: HO.HHCL 10:15
PROVIDERS: Visit Provider Internal Medicine
DX: D72.825 Bandemia (principal)
CPT/HCPCS: 36415; 71046; 85025; 85652

== ENCOUNTER 2025-01-04 18:47 | Outpatient (REF) | payer OTHER, SELFPAY | END 2025-01-04 18:48 | disposition home or self-care (01) | LOC: HO.HHCLNP 18:47 | PROVIDERS: Visit Provider Internal Medicine | DX: D72.829 Elevated white blood cell count, unspecified (principal); R53.83 Other fatigue | CPT/HCPCS: 87086; 87088; 87186 ==

== ENCOUNTER 2025-01-28 09:57 | Outpatient (AMB) | payer OTHER, SELFPAY ==
--- NOTE | 2025-01-28 09:59 | MHC.OFFVIS ---
Vital Signs 01/28/25 10:01 Height 4 ft 10 in Weight 166 lb BMI 34.7 BP 153/65 H Blood Pressure Location Lt brachial Position Sitting Respiration 16 Pulse 86 Pulse Source Pulse Oximeter Pulse Oximetry (%) 99 Oxygen Delivery Method Room Air Intake Visit Reasons: FU to repeat inj/exercise science internship suggest Mounter Required: Yes Mounter Services: Mounter Offered & Declined Mounter Name: Prefers daughter to translate Allergies codeine [CODEINE] Allergy (Mild, Verified 01/28/25 10:02) Rash morphine [MORPHINE] Allergy (Mild, Verified 01/28/25 10:02) Hallucinations oxycodone [Percocet] Allergy (Mild, Verified 01/28/25 10:02) Hives tramadol Adverse Reaction (Severe, Verified 01/28/25 10:02) Headache Medication List - Last Reconciled 01/28/25 by Alison Majano LPN acetaminophen ER (Tylenol Arthritis Pain) 650 mg PO Q12H albuterol sulfate 2.5 mg (3 mL) inhalation Q4-6H PRN albuterol sulfate 90 mcg/actuation (ProAir HFA) 2 puffs inhalation Q4-6H PRN aspirin 81 mg PO DAILY atorvastatin mg PO back brace As directed cholecalciferol (vitamin D3) 125 mcg PO DAILY clopidogrel 75 mg PO DAILY famotidine 20 mg PO fluticasone propion-salmeterol 115-21 mcg/actuation (Advair HFA) 2 puffs inhalation Q12H 30 days folic acid 1 mg PO DAILY gabapentin 100 mg PO TID inhalational spacing device As directed levothyroxine 25 mcg PO DAILY methotrexate sodium 15 mg PO QWEEK montelukast 10 mg PO QPM nebulizers As directed nitroglycerin mg sublingual olmesartan-hydrochlorothiazide 20-12.5 mg 1 tab PO DAILY HPI HPI FU to repeat inj/exercise science internship suggest: Details: History of Present Illness The patient is an 79-year-old female presenting for follow-up regarding her chronic lumbar spinal stenosis pain. She experienced a myocardial infarction in December while on vacation in [place], resulting in stent placement and initiation of dual antiplatelet therapy. Existing RA exacerbates her discomfort, affecting her back, knee, and shoulder. The patient is on methotrexate, and cardiac recommendations have altered her pain management options. With allergy to opioids, she faces challenges in managing her pain effectively. Post-cardiac catheterization infection was managed with antibiotics. Current care includes the evaluation of potential injection therapies, which are made risky by ongoing antiplatelet therapy. Pain Description - Onset: Chronic, with exacerbation due to lumbar spinal stenosis and myocardial events. - Quality: Persistent and severe. - Primary Location: Back, knee, and shoulder. - Radiation: Not specifically reported. - Exacerbating Factors: Movement, dual antiplatelet therapy restricting surgical or injection options. - Relieving Factors: Methotrexate initiation, though no significant improvement reported. - Interference: Limits participation in cardiac rehabilitation and activities of daily living. Physical Exam - Appears afebrile. - Alert and oriented. - Mood and affect appropriate. - Follows and participates in conversation appropriately. - Respiratory effort is unlabored. - Able to transition from sit to stand unassisted. - Ambulates with bilaterally normal heel strike and toe off. - Able to stand and walk on toes and heels. Pain Management - Affect: Pain significantly impacts mood and limits participation in cardiac rehabilitation. - Analgesia: Currently on methotrexate; Plavix for cardiac management prevents NSAID use. Pain management primarily at home with limited relief. - Adverse Effects: None reported from current regime; history of allergic reactions to opioids. - Activities of Daily Living: Pain severely limits daily functions and the ability to participate in recommended cardiac rehabilitation. - Aberrant Drug Related Behaviors: None reported. [facility] Medical History Pleural effusion Cellulitis Limb swelling Chest pain Asthma Chronic allergic rhinitis Atelectasis of left lung Family History Father Lung cancer Mother Throat cancer Social History Patient Tobacco Use Status: Former Tobacco user Tobacco use type: Cigarette Years Smoked: 4 years Physical Exam Vital Signs: Last Vital Signs Pulse 86 01/28/25 10:01 Resp 16 01/28/25 10:01 BP 153/65 H 01/28/25 10:01 Pulse Ox 99 01/28/25 10:01 Oxygen Delivery Method Room Air 01/28/25 10:01 BMI result Body Mass Index 34.7 Assessment & Plan Assessment & Plan (1) Post laminectomy syndrome: Code(s): M96.1 - Postlaminectomy syndrome, not elsewhere classified Category: Medical (2) Lumbar radiculopathy: Code(s): M54.16 - Radiculopathy, lumbar region Category: Medical (3) Lumbar spondylosis: Code(s): M47.816 - Spondylosis without myelopathy or radiculopathy, lumbar region Category: Medical Plan Plan Due to ongoing antiplatelet therapy, intervention options are limited for pain management in lumbar spinal stenosis and osteoarthritis. Future injection therapies rest on the exercise science internship's assessment on safely holding Plavix. Methotrexate has been initiated but requires time to evaluate efficacy, and the patient should continue Tylenol for pain relief. She is allergic to opioids. Acupuncture may be considered pending further safety evaluation. Close communication with her exercise science internship is essential to reassess current plans after follow-up dialogue about antiplatelet management. If all else fails and patient wants to proceed with limited injections understanding the risks, will consider targeted facet injections with a 25 gauge needle. Patient expressed understanding. Patient was informed and verbally consented to the use of an ambient scribe for clinic note documentation during this visit. Discussion Notes I discussed the limitations imposed by dual antiplatelet therapy on pain management, highlighting the risks of potential bleeding, especially regarding corticosteroid injections while on Plavix. We emphasized comprehensive dialogue with her exercise science internship to plan any cessation of Plavix safely. I explained that acupuncture is an alternative for pain management, with the consideration of potential bruising. The complexity of her allergies limits traditional analgesic options, and we discussed methotrexate's role in attempting to manage her arthritis pain. The importance of minimizing potential stent-related complications was enforced, along with anticipated future visits focused on reevaluating her pain management strategy depending on exercise science internship recommendations. Patient Instructions - Contact your exercise science internship to discuss safely pausing Plavix if necessary for potential injections. - Continue taking methotrexate as prescribed. - Use acetaminophen (Tylenol) for pain management. - Consider exploring acupuncture for non-pharmacological pain relief. - Follow up regarding cardiac rehabilitation referral with your exercise science internship. - Notify us immediately of any significant changes in pain, bleeding, or other health concerns. Coding Level of Care Code Est Pt Level 4 (67268) Diagnoses Post laminectomy syndrome M96.1 Lumbar radiculopathy M54.16 Lumbar spondylosis M47.816
[2025-01-28 10:01] VITALS: BP 153/65; PULSE 86; RESP 16; O2SAT 99; BMI 34.7
--- OUTSIDE RECORDS SUMMARY | 2025-01-28 11:08 | XMS_ITS ---
Author Name Catracho Love NP Address [address] [place] [address] Phone [phone] [facility] Care Team Providers Care Director Field Services Name Role Phone Catracho Love Unavailable [phone] Jeni Garcia Unavailable [phone] Unavailable Unavailable [phone] Unavailable Unavailable [phone] Unavailable Unavailable Unavailable Reason for Referral Not [...] BY MOUTH 1 TIME EACH DAY. 2021-11-26 2025-01-17 Montelukast Sodium 10 mg Tab TAKE 1 TABLET BY MOUTH 07-05-27 No Data Available Omeprazole 20 mg Cap delayed rel TAKE 1 CAPSULE BY MOUTH TWICE A DAY 2022-05-12 2025-01-17 VITAMIN D3 25 MCG TABLET TAKE 1 CAPSULE (50 MCG) BY MOUTH IN THE MORNING 2021-09-28 No Data Available Levothyroxine Sodium 50 MCG Tab TAKE 1 T ABLET BY MOUTH EVERY DAY 2022-05-12 No Data Available Losartan Potassium 100 mg Tab TAKE 1 TAB LET BY MOUTH EVERY DAY 2022-06-07 2025-01-17 Folic Acid 1 mg Tab TAKE 1 [...] mg Tab TAKE 1 TABLET BY MO UT EVERY DAY IN THE MORNING 2023-08-19 No [...] 1 tab let orally once daily 2023-09-26 2025-01-17 Mupirocin Calcium 2 % Crm APPLY TO AFFEC KRISSY AREA TWICE A DAY 2023-11-25 No Data Available Triamcinolone Acetonide 0.5 % Crm 1 application topically to affected area 2 times per day as needed 2023-11-25 No Data Available Doxycycline Monohydrate 100 mg Tab TAKE 1 TABLET BY MOUTH 2 TIMES A DAY FOR 21 DAYS 2023-10-31 No Data Available Methotrexate Sodium 2.5 mg Tab TAKE 8 TA BLETS ONCE WEEKLY ON Mondays2024-05-11 No Data Available Sucralfate 1 GM/10ML Suspension TAKE 10 ML BY MOUTH THREE TIMES A DAY 2024-08-08 No Data Available Carvedilol 6.25 mg Tab TAKE 1 TABLET BY MOUTH WITH BREAKFAST AND 1 WITH EVENING MEAL 2024-01-02 No Data Available VITAMIN D3 5,000 UNIT SOFTGEL TAKE 1 CAP FORD BY MOUTH EVERY TUESDAY AND Tuesday2024-10-02 No Data Available Atorvastatin Calcium 80 mg Tab TAKE 1 TA BLET (80 MG) BY MOUTH ONCE PER DAY. FOR 30 DAYS, THEN DECREASE TO 40 MG ONCE DAILY 2024-10-31 No Data Available Pantoprazole Sodium 40 mg Ta b delayed rel TAKE 1 TABLET BY MOUTH TWICE A DAY DO NOT CRUSH, CHEW, OR SPLIT 2024-11-14 No Data Available Methocarbamol 750 mg Tab TAKE 1 TABLET O RALLY 2 TIMES A DAY NEEDED FOR PAIN, MODERATE 2024-11-30 No Data Available methylPREDNISolone 4 mg Tab Therapy Pack TAKE 6 TABLETS ON DAY 1 DIRECTED ON PACKAGE AND DECREASE BY 1 TAB EACH DAY FOR A TOTAL OF 6 DAYS 2024-12-07 2025-01-17 Clopidogrel Bisulfate 75 mg Tab TAKE 1 T ABLET (75 MG) BY MOUTH ONCE PER DAY. 2025-01-03 No Data Available Famotidine 20 mg Tab TAKE 1 TABLET (20 M G) BY MOUTH IF NEEDED IN THE MORNING AND AT BEDTIME FOR HEARTBURN. 2025-01-03 No Data Available predniSONE 20 mg Tab TAKE 1 TABLET (20 M G) BY MOUTH ONCE PER DAY FOR 5 DAYS. 2025-01-07 2025-01-17 levoFLOXacin 250 mg Tab TAKE 1 TABLET (2 50 MG) BY MOUTH ONCE PER DAY FOR 5 DAYS. 2025-01-07 No Data Available Doxycycline Hyclate 100 mg Cap PLEASE SE E ATTACHED FOR DETAILED DIRECTIONS 2025-01-10 No Data Available Doxycycline Hyclate 100 mg Cap Take 1 ta b PO q12h x 10 days 2025-01-17 No Data Available Problem List Problem Status Onset Date Resolved Date Glaucoma Active 2022-11-05 N/A Cataracts, bilateral Active 2022-11-05 N/A Mixed hyperlipidemia due to type 2 diabetes mellitus A ctive 2023-11-25 N/A COPD (chronic obstructive pulmonary disease) Active 2025-01-17 N/A 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Immunocompromised Active 2022-11-05 N/A Atherosclerosis of renal art celine, Atherosclerosis of [place] arteries of extremities with intermittent claudication, bilateral legs Active 2022-11-05 N/A 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History of myocardial infarctionHypercoagulable state due to atrial fibrillation, unspecified type Active 2023-11-25 N/A Essential (primary) hypertension Active 2025-04- 03 N/A GERD (gastroesophageal reflux disease) Active 08-02-03 N/A Hypothyroid Active 2025-01-17 N/A Class 1 obesity due to exces s calories with serious comorbidity and body mass index (BMI) of 33.0 to 33.9 in adult Active 2025-01-17 N/A Cellulitis Active 2025-01-17 N/A Other problems related to [facility] facilities and other health care Active 2025-01-17 N/A CKD (chronic kidney disease) stage 3, GFR 30-59 ml/min Active 2025-01-17 N/A 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 Active 2023-11-25 N/A Hospitalization within last 30 days Active 01-27 N/A Encounters Encounters Type Facility Date of Service Diagnosis/Co mplaint New patient,40-59min; chronic exacerbation, 2 stable chronic or 1 acute illness add add modifier 95 for video (do not use for phone, instead use [id number]) [facility]2022 Rheumatoid polyneurop w rheu matoid arthritis of [facility] siteAtherosclerosis of renal arteryAthscl [place] arteries of [facility] w intrmt nilesh, bi legsPersonal history of urinary calculi New patient,40-59min; chronic exacerbation, 2 stable chronic or 1 acute illness add add modifier 95 for video (do not use for phone, instead use [id number]) [facility]2022 New patient,40-59min; chronic exacerbation, 2 stable chronic or 1 acute illness add add modifier 95 for video (do not use for phone, instead use 53879-16) [facility]/2022 New patient,40-59min; chronic exacerbation, 2 stable chronic or 1 acute illness add add modifier 95 for video (do not use for phone, instead use 83264-65) [facility]/2022 New patient,40-59min; chronic exacerbation, 2 stable chronic or 1 acute illness add add modifier 95 for video (do not use for phone, instead use 87970-25) [facility]/05/2022 New patient,40-59min; chronic exacerbation, 2 stable chronic or 1 acute illness add add modifier 95 for video (do not use for phone, instead use 44922-30) [facility] 11/05/2022 No Data Available [facility] 12/02/2022 Primary osteoarthritis, left elbowPersonal history of urinary calculi No Data Available [facility] 12/02/2022 No Data Available [facility] 12/02/2022 No Data Available [facility] 01/25/2023 Shortness of breathCough, unspecified Estab. patient 20-29min; 1 stable chronic or 2 minor; add add modifier 95 for video, modifier 93 for phone [facility] 07/25/2023 Rheumatoid polyneurop w rheu matoid arthritis of unsp siteAtherosclerosis of renal arteryAthscl [place]at[place] arteries of extrm w intrmt nilesh, bi legsPersonal history of urinary calculiAcquired absence of other specified parts of digestive tractUnspecified asthma, uncomplicatedUnspecified glaucomaUnspecified cataractImmunodeficiency due to drugsOther correction (current) drug therapyChronic obstructive pulmonary disease, unspecifiedObesity, unspecifiedBody mass index (BMI) 35.0-35.9, adultPrimary osteoarthritis, left elbowShortness of breathCough, unspecified Estab. patient 20-29min; 1 stable chronic or 2 minor; add add modifier 95 for video, modifier 93 for phone [facility] 07/25/2023 Estab. patient 20-29min; 1 stable chronic or 2 minor; add add modifier 95 for video, modifier 93 for phone [facility], [place] 07/25/2023 Estab. patient 20-29min; 1 stable chronic or 2 minor; add add modifier 95 for video, modifier 93 for phone [facility], ([place]) 07/25/2023 Estab. patient 20-29min; 1 stable chronic or 2 minor; add add modifier 95 for video, modifier 93 for phone [facility], ([place] 07/25/2023 Estab. patient 20-29min; 1 stable chronic or 2 minor; add add modifier 95 for video, modifier 93 for phone [facility], ([place] 07/25/2023 No Data Available [facility] 09/30/2023 Chronic obstructive pulmonar y disease, unspecifiedRheumatoid polyneurop w rheumatoid arthritis of unsp siteAtherosclerosis of renal arteryAthscl [place]at[place] arteries of extrm w intrmt nilesh, bi legsImmunodeficiency due to drugsPersonal history of urinary calculiAcquired absence of other specified parts of digestive tractUnspecified asthma, uncomplicatedUnspecified glaucomaUnspecified cataractOther correction (current) drug therapyObesity, unspecifiedBody mass index (bmi) 34.0-34.9, adultPrimary osteoarthritis, left elbowShortness of breathCough, unspecifiedCellulitis, unspecified No Data Available [facility] 09/30/2023 No Data Available [facility] 09/30/2023 No Data Available [facility] 09/30/2023 RN, CN or CP time with patient by phone; use with 1111F, BP, A1c or other CPTII codes [facility], ([place]) 09/26/2023 Encounter for other specifie d aftercare RN, CN or CP time with patient by phone; use with 1111F, BP, A1c or other CPTII codes [facility], ([place] 09/26/2023 Estab. patient 30-39min; chronic exacerbation, 2 stable chronic or 1 acute illness add add modifier 95 for video, (do not use for phone, instead use 08545-93) [facility]/25/2023 Rheumatoid polyneurop w rheu matoid arthritis of [facility] siteAtherosclerosis of renal arteryAthscl alat[place] arteries of extrm w intrmt nilesh, bi legsUnspecified glaucomaUnspecified cataractImmunodeficiency due to drugsOther exterminator helper (current) drug therapyChronic obstructive pulmonary disease, unspecifiedObesity, unspecifiedPrimary osteoarthritis, left elbowOther problems related to medical facilities and other health careAthscl heart disease of [place] cor art w unstable ang pctrsPeripheral vascular disease, unspecifiedDermatitis, unspecifiedType 2 diabetes mellitus with other specified complicationMixed hyperlipidemia Estab. patient 30-39min; chronic exacerbation, 2 stable chronic or 1 acute illness add add modifier 95 for video, (do not use for phone, instead use 11681-79) [facility]2023 Estab. patient 30-39min; chronic exacerbation, 2 stable chronic or 1 acute illness add add modifier 95 for video, (do not use for phone, instead use [id number]) [facility] 11/25/2023 Estab. patient 30-39min; chronic exacerbation, 2 stable chronic or 1 acute illness add add modifier 95 for video, (do not use for phone, instead use 57989-08) [facility] 11/25/2023 Estab. patient 30-39min; chronic exacerbation, 2 stable chronic or 1 acute illness add add modifier 95 for video, (do not use for phone, instead use 44541-87) [facility] 11/25/2023 Estab. patient 30-39min; chronic exacerbation, 2 stable chronic or 1 acute illness add add modifier 95 for video, (do not use for phone, instead use 70625-31) [facility] 11/25/2023 Estab. patient 30-39min; chronic exacerbation, 2 stable chronic or 1 acute illness add add modifier 95 for video, (do not use for phone, instead use 10623-41) [facility] 11/25/2023 Estab. patient 30-39min; chronic exacerbation, 2 stable chronic or 1 acute illness add add modifier 95 for video, (do not use for phone, instead use 79525-33) [facility], [place] 11/25/2023 Estab. patient 30-39min; chronic exacerbation, 2 stable chronic or 1 acute illness add add modifier 95 for video, (do not use for phone, instead use 18639-65) [facility], ([place]) 11/25/2023 Estab. patient 30-39min; chronic exacerbation, 2 stable chronic or 1 acute illness add add modifier 95 for video, (do not use for phone, instead use 24564-74) [facility] 11/25/2023 Estab. patient 30-39min; chronic exacerbation, 2 stable chronic or 1 acute illness add add modifier 95 for video, (do not use for phone, instead use 55844-00) [facility] [place]/2023 Estab. patient 10-29min; 1 minor problem; add add modifier 95 for video, modifier 93 for phone [facility], [place] 01/17/2025 Type 2 diabetes mellitus wit h diabetic chronic kidney diseaseChronic kidney disease, stage 3 unspecifiedType 2 diabetes w diabetic peripheral angiopath w/o gangreneAthscl [place]na arteries of extrm w intrmt nilesh, bi legsType 2 diabetes mellitus with other specified complicationMixed hyperlipidemiaRheumatoid polyneurop w rheumatoid arthritis of [facility] siteAthscl heart disease of [place] cor art w unstable ang pctrsUnspecified atrial fibrillationChronic obstructive pulmonary disease, unspecifiedImmunodeficiency, unspecifiedAtherosclerosis of renal arteryUnspecified glaucomaUnspecified cataractOld myocardial infarctionOther thrombophiliaEssential (primary) hypertensionGastro-esophageal reflux disease without esophagitisHypothyroidism, unspecifiedObesity, class 1Other obesity due to excess caloriesBody mass index (bmi) 33.0-33.9, adultCellulitis, unspecifiedOther problems related to medical facilities and other health care Estab. patient 10-29min; 1 minor problem; add add modifier 95 for video, modifier 93 for phone [facility], [place] 01/17/2025 Estab. patient 10-29min; 1 minor problem; add add modifier 95 for video, modifier 93 for phone [facility] [place] 01/17/2025 Estab. patient 10-29min; 1 minor problem; add add modifier 95 for video, modifier 93 for phone [facility], [place] 01/17/2025 Estab. patient 10-29min; 1 minor problem; add add modifier 95 for video, modifier 93 for phone [facility], [place] 01/17/2025 Estab. patient 10-29min; 1 minor problem; add add modifier 95 for video, modifier 93 for phone [facility] 01/17/2025 Estab. patient 10-29min; 1 minor problem; add add modifier 95 for video, modifier 93 for phone [facility] [place] 01/17/2025 Estab. patient 10-29min; 1 minor problem; add add modifier 95 for video, modifier 93 for phone [facility], [place] 01/17/2025 Estab. patient 10-29min; 1 minor problem; add add modifier 95 for video, modifier 93 for phone [facility], [place] 01/17/2025 Estab. patient 10-29min; 1 minor problem; add add modifier 95 for video, modifier 93 for phone [facility] [place] 01/17/2025 Estab. patient 10-29min; 1 minor problem; add add modifier 95 for video, modifier 93 for phone [facility] 01/17/2025 Vital Signs Date of Collection Vitals 2022-11-05 [...] - 93.0 %Pain Scale - 3.0 {score} 2025-01-17 08:37:23 Height - 149.86 cmWe ight - 75.48 kgBody Mass Index (BMI) - 33.61 kg/m2BP Diastolic - 55.0 mm[Hg]BP Systolic - 174.0 mm[Hg]Pain Scale - 8.0 {score} Social History Social History Social History Observation Description Effec tive Time Current Smoking Status Former smoker 2025-01-15 4 Sex Female Gender identity Woman History of Procedures Procedures Service Procedure code Service date Servicing provider Phone# New patient,40-59min; chronic exacerbation, 2 stable chronic or 1 acute illness add add modifier 95 for video (do not use for phone, instead use 72341-87) [id number] 2022-11-05 No Data Available No Data Availa [...] le No Data Available No Data Available [id number] 2022-12-02 No Data Available No Data Available Medication List Documented (1159F) 1159F 2022-12-02 No Data Available No Data Lucretia ilable Pain Assessment - Pain Documented on a Pain Scale (1125F) 1125F 2022-12-02 No Data Available No Data Lucretia ilable No Data Available [id number] 2023-01-25 No Data Available No Data Available Estab. patient 20-29min; 1 stable chronic or 2 minor; add add modifier 95 for video, modifier 93 for phone [id number] 2023-07-25 No Data Available No Data Availa [...] le No Data Available No Data Available [id number] 2023-09-30 No Data Available No Data Available [...] 1111F, BP, A1c or other CPTII codes 74963 2023-09-26 No Data Available No Data Avai lable Medications prescribed in hospital were reviewed and reconciled against what they were taking prior to admission during today's visit. (1111F) 1111F 2023-09-26 No Data Available No Data Availa ble Estab. patient 30-39min; chronic exacerbation, 2 stable chronic or 1 acute illness add add modifier 95 for video, (do not use for phone, instead use 91577-52) 74139 2023-11-25 No Data Available No Data Availa [...] Available No Data Availa ble Estab. patient 10-29min; 1 minor problem; add add modifier 95 for video, modifier 93 for phone [id number] 2025-01-17 No Data Available No Data Availa ble Medications prescribed in hospital were reviewed and reconciled against what they were taking prior to admission during today's visit. (1111F) 1111F 2025-01-17 No Data Available No Data Availa ble Advance care planning discussed and documented ? advance care plan or surrogate decision-maker was documented in the medical record. (1123F) 1123F 2025-01-17 No Data Available No Data Availa ble Pain Assessment - Pain Documented on a Pain Scale (1125F) 1125F 2025-01-17 No Data Available No Data Lucretia ilable Advance Care Directive Advance care planning discussion documented in the medical record (1158F) 1158F 2025-01-17 No Data Available No Data Availa ble Medication List Documented (1159F) 1159F 2025-01-17 No Data Available No Data Lucretia ilable Medication Review by prescribing provider or pharmacist documented (1160F) 1160F 2025-01-17 No Data Available No Data Lucretia ilable Functional Status Assessed (1170F) 1170F 2025-01-17 No Data Available No Data Avail able SBP >= 140 3077F 2025-01-17 No Data Available No Data Available DBP <80 (3078F) 3078F 2025-01-17 No Data Available No Data Available BMI obtained (3008F) 3008F 2025-01-17 No Data Availab le No Data Available Functional Status Functional Category Effective Dates Cognition Status: Oriented to Person, Pl hazel and Time 2025-01-17 ADL: Bathing Needs Assistanc e , Dressing Needs Assistance , Eating Independent , Ambulation Needs Assistance , Transferring Needs Assistance and Toileting Needs Assistance 2025-01-17 IADL: Medication Needs Michael tance , Meal Prep Needs Assistance , Shopping Needs Assistance , Driving or Public Transport Needs Assistance , Housework Needs Assistance , Finances Needs Assistance 2025-01-17 How many falls within the last 6 months? None 2025-01-17 Near falls within the last 6 months? Non e 2025-01-17 Do you feel unsteady on your feet? Yes Do you worry about falling? Yes DME used with ambulation: Santino 02-17-03 Social Supports - # of Inter actions with Friends/Family in a typical week: daughter 2025-01-17 Mental Status No Information Assessments Date of Service Assessments 2022-11-05 10:33:01 Rheumatoid polyneuro gregor with rheumatoid arthritis of unspecified siteAtherosclerosis of renal artery, Atherosclerosis of [place] arteries of extremities with intermittent claudication, bilateral legsHx of renal calculi 2022-12-02 12:17:08 Arthritis of left up per armHx of renal calculi 2023-01-25 09:24:51 Follow up plan for kimberly barrow symptoms: F/U PCPShortness of breath with cough 2023-07-25 08:46:34 <Fully document all Diagnosis>Rheumatoid polyneuropathy with rheumatoid arthritis of unspecified siteAtherosclerosis of renal artery, Atherosclerosis of [place] arteries of extremities with intermittent claudication, bilateral legsHx of renal calculiHx of cholecystectomyAsthmaGlaucomaCataracts, bilateralImmunodeficiency due to drugsChronic obstructive pulmonary disease, unspecifiedObesity (BMI 30.0-34.9)Arthritis of left upper armHx of renal calculiShortness of breath with cough 2023-09-30 07:29:04 Rheumatoid polyneuro gregor with rheumatoid arthritis of unspecified siteAtherosclerosis of renal artery, Atherosclerosis of [place] arteries of extremities with intermittent claudication, bilateral legsHx of renal calculiHx of cholecystectomyAsthmaGlaucomaCataracts, bilateralImmunodeficiency due to drugsChronic obstructive pulmonary disease, unspecifiedObesity (BMI 30.0-34.9)Arthritis of left upper armHx of renal calculiShortness of breath with coughCellulitis 2023-11-25 11:48:09 Other problems relat ed to medical facilities and other health careRheumatoid polyneuropathy with rheumatoid arthritis of unspecified siteAtherosclerosis of renal artery, Atherosclerosis of [place] arteries of extremities with intermittent claudication, bilateral legsGlaucomaCataracts, bilateralImmunodeficiency due to drugsChronic obstructive pulmonary disease, unspecifiedObesity (BMI 30.0-34.9)Arthritis of left upper armOther problems related to medical facilities and other health careAtherosclerosis of renal artery, Atherosclerosis of [place] arteries of extremities with intermittent claudication, bilateral legs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PVD (peripheral vascular disease)EczemaMixed hyperlipidemia due to type 2 diabetes mellitus 2025-01-17 08:37:23 Rheumatoid polyneuro gregor with rheumatoid arthritis of unspecified siteImmunocompromisedAtherosclerosis of renal artery, Atherosclerosis of [place] arteries of extremities with intermittent claudication, bilateral legsGlaucomaCataracts, bilateral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History of myocardial infarctionHypercoagulable state due to atrial fibrillation, unspecified typePVD (peripheral vascular disease)Mixed hyperlipidemia due to type 2 diabetes mellitusCOPD (chronic obstructive pulmonary disease)Essential (primary) hypertensionGERD (gastroesophageal reflux disease)HypothyroidClass 1 obesity due to excess calories with serious comorbidity and body mass index (BMI) of 33.0 to 33.9 in adultCellulitisOther problems related to medical facilities and other health careCKD (chronic kidney disease) stage 3, GFR 30-59 ml/min Plan of Care Date of Service Plans [...] modifier 95Continue to see PCP. Follow-up with [facility] as needed for any acute or disease education needs that may arise 09/05.Will have surgery on 02/28/2023Tylenol and gabapentinPassed it w tamsulosin 2023-01-25 09:24:51 Phone (patient, pare nt, or guardian); 11-20 minutes of medical discussion (no modifier 95)Continue to see PCP. Follow-up with Alicia as [...] <80 (3078F)Continue to see PCP. Follow-up with [facility] as needed for any acute or disease education needs that may arise 09/05.Methotrexare, taking fewer (6) tabs than prescribed (8), concerned about AE .Advised to tlk to rheumatology about it.Not on a statin - will investigateEncouraged to lose weightEast high fiber foodActivity as toleratedRecently passed a kidney stone, 11/0314Eprynjtq4/24/2022tableAdvair,Albuterol PRN,Montelukast.ophtho consult coing up in Januaryophtho consult [...] visit. (1111F)Continue to see PCP. Follow-up with Alicia as needed for any acute or disease education needs that may arise 09/05.Methotrexare, taking fewer (6) tabs than prescribed (8), concerned about AE .Advised to tlk to rheumatology about it.Not on a statin - will investigateEncouraged to lose weightEast high fiber foodActivity as toleratedRecently passed a kidney stone, 11/0364Bgwhnoxw2/24/2022tableAdvair,Albuterol PRN,Montelukast.ophtho consult coing up in Januaryophtho consult [...] <7% (3044F)Continue to see PCP. Follow-up with Alicia as [...] joint pain increased Please remember to call CBContinue to see PCP. [facility] needed for any acute [...] smoking.keep skin hydrated triamcinolone PRN Eosinophil count [id number] 08/19/23not on any medication Advised to eat [...] ETOH intake. If you smoke, quit smoking. 2025-01-17 08:37:23 Discharge medication s reconciled with current medication listAdvance care planning discussed and documented ? advance care plan or surrogate decision-maker was documented in the medical record. (1123F)Estab. patient 10-29min; 1 minor problem; add add modifier 95 for video, modifier 93 for phoneMedications prescribed in hospital were reviewed and reconciled against what they were taking prior to admission during today's visit. (1111F)Advance Care Directive Advance care planning discussion documented in the medical record (1158F)Medication List Documented (1159F)Medication Review by prescribing provider or pharmacist documented (1160F)Functional Status Assessed (1170F)Pain Assessment - Pain Documented on a Pain Scale (1125F)SBP >= 140DBP <80 (3078F)BMI obtained (3008F)PCP visit is planned for:Methotrexare, taking fewer (6) tabs than prescribed (8),- stretching, range of motion exercise such as ( walking , cycling, or water exercise). rest when in pain exacerbation 01/17/2025 patients is on hold with medication right now due to interaction with abx. patient josé RA specialist 01/14/2025 and she was referred to pain management. has an appointment with pain management 01/31/2025Rx: atorvastatin weight management, exercising regularly, eating a diet low in saturated or transfat, no smoking, and limiting alcohol intake.Adhere to Medications. You may need to take a variety of eyedrops throughout the day to manage your glaucoma. Maintain a schedule to take the proper dosage on time.01/17/2025 sees relay operator yearly01/17/2025 no need for surgery yet , monitored yearlyRx: nitro, clopidogrel Choose heart-healthy foods, Aim for a healthy weight, Be physically activity, Manage stress, Quit smoking, and Get enough good-quality sleep.01/17/2025 patient had HI while on vacation on a cruise earlier this year sees social work therapist yearlyRx: gabapentin elevate and massage legsrecommend compression stockings patient needs to watch for any warm, red, painful, and swollen symptoms. Elevating the lower extremities above the heart. avoid sitting for long periods.- patient education the importance of diabetic diet, exercise, medication compliance. patient education on hypoglycemia and hyperglycemia signs and symptoms. monitor daily BGL. patient to assess feet daily for any cuts or wounds and to notify pcp or [facility] as soon as possible.Rx: advair, albuterol importance of small meals, medication compliance, breathing techniques, and weight loss. 01/17/2025 patient sees air traffic control manager every 3-6 monthsRx: carvedilolMonitor BP routinely, low salt diet, exercise as tolerable, and continue f/u care with PCP.Rx: famotidine, pantoprazole Don't lie down for at least 2 to 3 hours after eating small meals, avoid fatty foods, avoid spicy food, avoid chocolate, avoided caffeinated drinks, avoid alcoholic beverages.Rx: levothyroxine- take medication 30-60 mins before first meal and not to mix with other medications. diet high in vegetables, whole grains, and lean protenin and exercise. encouraged to report increased fatigue or thirst, feelings of jitteriness, or heart palpitationspatient educated on the importance of diet compliance or modifications and exercise as tolerated01/17/2025 : on 01/10/2025 patient had an abscess near the right groin of where she had cardiac catheter earlier that month. patient diagnosed with cellulitis. patient diagnosed with cellulitis, and was sent home with antibiotics. levaquin 250 for UTI and doxycycline 100 mg 1 tab by mouth BID for 10 days. also applying mupirocin . on Tuesday01/22/2025 will see her pcpWOUND CONTINGENCY PLANLast updated: 01/17/2025Member to call for the following symptoms: Fever/ HR >100??/ Increased wound size??/ Wound bleeding/ Wound drainagePlanned intervention: Ensure appropriate offloading of wound/ Encourage increased fluid intake/ MRSA Suspected - Bactrim DS BID x7d/ Take Tylenol for pain or feveroutside care: eGFR 43 (01/03/2025) Avoid nephrotoxic medications (NSAIDS, high dose Gabapentin, Baclofen, Fleet Enema, Morphine/Codeine) Goals Date Goal 2025-01-17 At least 50% of time spent counseling pt, discussing diagnosis, treatment plan, compliance, and coordinating followup care. Continue taking medications as directed and keep all follow up appointments with established PCP and Specialist Health Concerns Date Concern 2025-01-17 Visit completed by kalin merino audio and video using [employer] Tablet. Patient/Guardian agreed to visit via telehealth. Informed verbal consent was obtained from this patient to communicate and provide care using virtual and other telecommunications tools. This patient has been explained the risks, if any, related to the encounter. I explained that care provided through video or audio communication cannot replace the need for physical examination or an in-person visit for some disorders or urgent problems.Hospital discharge paperwork requested/reviewed. 2025-01-17 Tell me about your recent hospital stay(s) or ER visit(s) and precipitating factors: 01/10/2025 patient had an abscess near the right groin of where she had cardiac catheter earlier that month. patient diagnosed with cellulitis. patient diagnosed with cellulitis, and was sent home with antibiotics. levaquin 250 for UTI and doxycycline 100 mg 1 tab by mouth BID for 10 days. also applying mupirocin . on Tuesday01/22/2025 will see her pcpReason for Hospitalization and summary of hospital course: cellulitis[Risks or red flags for readmission/contingency plan?] infection
--- OUTSIDE RECORDS SUMMARY | 2025-01-28 11:08 | XMS_ITS | Encounter Summary ---
Author Organization [employer] [facility] Address [address] [facility] 7t [place] [address] Care Team Providers Care Deckhand Clam Dredge Name Role Phone Jeni Garcia MD Primary Care Provider + Encounter Details Date Type Department Care Team (Latest Contact Info) Description 04/28/2021 Abstract [facility] CONVERSIONS Dental, Provider, DDS Social History Tobacco Use Types Packs/Day Years Used Date Smoking Tobacco: Never Assessed Comments Unknown Sex and Gender Information Value Date Recorded Sex Assigned at Female 08/16/2022 10:14 AM EDT Legal Sex Female 10:14 AM EDT Gender Identity Female 08/16/2022 10:14 AM EDT Sexual Orientation Straight 08/16/2022 10 :14 AM EDT Travel History Travel Start Travel End [place] 12/07/2024 01/04/2025 documented as of this encounter Plan of Treatment Upcoming Encounters Date Type Department Care Team (Late st Contact Info) Description 02/15/2025 11:15 AM EDT Office Visit [facility] MEDICINE [address] [place] [address] Jeni Garcia MD [address] [place] [address] 05/28/2025 10:00 AM EDT Office Visit [facility] ADULT DENTAL [address] [place], [place] [phone] [place] documented as of this encounter Visit Diagnoses Not on filedocumented in this encounter Care Teams Deckhand Clam Dredge Relationship Specialty Start Date End Date Jeni Garcia MD [address] [place] [address] PCP - General Family Medicine 12/16/15 documented as of this encounter
--- OUTSIDE RECORDS SUMMARY | 2025-01-28 11:08 | XMS_ITS | Encounter Summary ---
Author Organization [employer] [facility] Address [address] [facility] 7t [place] [address] Care Team Providers Care Sawmill Or Timber Yard Worker Name Role Phone Jeni Garcia MD Primary Care Provider + Encounter Details Date Type Department Care Team (Late Contact Info) Description 04/04/2023 Orders Only [facility] MEDICINE [address] [place], [place] [phone] Jeni Garcia MD [address] [place] [address] Social History Tobacco Use Types Packs/Day Years [...] Travel Start Travel End [place] 12/07/2024 01/04/2025 COVID-19 Exposure Response Date Recorded In the last 10 days, have yo u been in contact with someone who was confirmed or suspected to have Coronavirus/COVID-19? No / Unsure 03/31/2023 2:03 PM EDT documented as of this encounter Plan of Treatment Upcoming Encounters Date Type Department Care Team (Late Contact Info) Description 02/15/2025 11:15 AM EDT Office Visit [facility] MEDICINE [address] [place] [address] Jeni Garcia MD [address] [place] [address] 05/28/2025 10:00 AM EDT Office Visit [facility] ADULT DENTAL [address] [place] [address] [place] documented as of this encounter Visit Diagnoses Not on filedocumented in this encounter Additional Health Concerns Assessment Noted Time PHQ-9 Depression Total Score: 0 11/16/19 10:53 AM EST documented as of this encounter Care Teams Sawmill Or Timber Yard Worker Relationship Specialty Start Date End Date Jeni Garica MD [address] [place] [phone] PCP - General Family Medicine 12/16/15 documented as of this encounter
--- OUTSIDE RECORDS SUMMARY | 2025-01-28 11:08 | XMS_ITS | Encounter Summary ---
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) Jeni Garcia MD [address] [place] [address] Phone: tel: fax: [facility] [address] [place] [address] Phone: tel: fax: Referral ID Status Reason Start Date Expiration Date V isits Requested Visits Authorized [id number] Closed Specialty Services Required 06/13/2024 06/13/2025 1 1 Encounter Details Date Type Department Care Team (Late st Contact Info) Description 06/13/2024 Orders Only [facility] MEDICINE [address] [place], [place] [phone] Jeni Garcia MD [address] [place], [place] [phone] Renal artery stenosis (CMS/HCC); Superior mesenteric artery [...] EDT Travel History Travel Start Travel End [place] 12/07/2024 01/04/2025 documented as of this encounter Miscellaneous Notes [...] Description 02/15/2025 11:15 AM EDT Office Visit [facility] MEDICINE [address] [place] [address] Jeni Garcia MD [address] [facility] [place] [address] 05/28/2025 10:00 AM EDT Office Visit [facility] ADULT DENTAL [address] [place] [address] Blessing Bah Scheduled Referrals Name Type Priority [...] EDT Narrative 06/28/2024 4:28 PM EDT ? [facility] ?[address] ?[place] [address] ?XRay Report ? Signed ? Patient: Armendariz,Joan R ?MR#: [id number] ?? [id number] ? : 1945 ?Acct:[id number] ? Age/Sex: 79 / F ?ADM Date: 06/28/ ? Loc: HO.ED ? Attending Dr: ? Ordering Physician: Geovanna Austin ?? Date of Service: 06/28/24 ?? Procedure(s): XR lumbar spine 2-3V ?? Accession Number(s): [id number] ? cc: Jeni Garcia MD; Geovanna Austin [...] DD/ 1600 ? TD/TT: 06/28/24 1615 ? Metal Fabricating Shop Helper: ? Procedure Note Willie Maurer - 06/28/[address] [address] XRay Report Signed Patient: Joan Armendariz RMR#: [id number] : 3Acct:[id number] Age/Sex: 79 / FADM Date: 06/28/24 Loc: HO.ED Attending Dr: Ordering Physician: Geovanna Austin Date of Service: 06/28/24 Procedure(s): XR lumbar spine 2-3V Accession Number(s): [id number] cc: Jeni Garcia MD; Geovanna Austin EXAMINATION: [...] 06/28/24 1625 DD/ 1600 TD/TT: 06/28/24 1615 Metal Fabricating Shop Helper: [facility] External Provider IMG XR PROCEDURES Final Result * XR Chest 1 View (06/28/2024 12:52 PM EDT) Anatomical Region Laterality Modality Chest Radiographic Tamiko ging 06/28/2024 12:5 2 PM EDT Narrative 06/28/2024 3:02 PM EDT ? [facility] ?[address] ?[place] [address] ?XRay Report ? Signed ? Patient: Armendariz,Joan R ?MR#: [id number] ?? [id number] ? : 1945 ?Acct:[id number] ? Age/Sex: 79 / F ?ADM Date: 06/28/24 ? Loc: HO.ED ? Attending Dr: ? Ordering Physician: Geovanna Austin ?? Date of Service: 06/28/24 ?? Procedure(s): XR chest 1V ?? Accession Number(s): [id number] ? cc: Jeni Garcia MD; Geovanna Austin [...] 06/28/24 1459 ? DD/ 1252 ? TD/TT: 06/28/241258 ? Metal Fabricating Shop Helper: RK ? Procedure Note Willie Maurer - 06/28/[address] [address] XRay Report Signed Patient: Joan Armendariz RMR#: [id number] : 3Acct:[id number] Age/Sex: 79 / FADM Date: 06/28/24 Loc: HO.ED Attending Dr: Ordering Physician: Geovanna Austin Date of Service: 06/28/24 Procedure(s): XR chest 1V Accession Number(s): [id number] cc: Jeni Garcia MD; Renschler,Geovanna PA EXAMINATION: XR CHEST CLINICAL INFORMATION: Chest pain [...] MD 06/28/2024 02:59 PM EDT RP Workstation: [email or web address] Dictated By: Franklin Lepe MD Signed By: <Electronically signed by Franklin Lepe MD in OV> 06/28/24 1459 DD/ 1252 TD/TT: 06/28/24 1259 Metal Fabricating Shop Helper: BETH [facility] External Provider IMG XR PROCEDURES Final [...] as of this encounter Care Teams Senior Corporate Recruiter Relationship Specialty Start Date End Date Jeni Garcia MD [address] [place] [address] PCP - General Family Medicine 12/16/15 documented as of this encounter
--- OUTSIDE RECORDS SUMMARY | 2025-01-28 11:08 | XMS_ITS | Encounter Summary ---
Author Organization [facility] Address [address] [place] [address] Care Team Providers Care Retail Service Specialist Name Role Phone Jeni Garcia MD Primary Care Provider + [phone] Encounter Details Date Type Department Care Team (Late Contact Info) Description 10/04/2024 Lab Requisition [facility] - Main Lab [address] 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 10/05/2024 12:26 PM [facility] Clinical Information Heartburn,esophag eal reflux symptoms that persist despite appropriate therapy Finding:R/O oliver's 10/05/2024 12:26 PM [facility] Gross Description A. 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
--- OUTSIDE RECORDS SUMMARY | 2025-01-28 11:08 | XMS_ITS | Encounter Summary ---
Author Organization [employer] Address [address] [facility] 7t [place] [address] Care Team Providers Care Lining Stuffer Name Role Phone Jeni Garcia MD Primary Care Provider + Reason for Visit * Reason Onset Date Comments C pap request 01/26/2023 Encounter Details Date Type Department Care Team ([facility] st Contact Info) Description 01/26/2023 Telephone [facility] MEDICINE [address] [place], [place] [phone] Jeni Garcia MD [address] [place], [place] [phone] C pap request Social History Tobacco Use [...] EDT Travel History Travel Start Travel End [place] 12/07/2024 01/04/2025 documented as of this encounter [...] on CPAP machine. Please contact pt at [phone] (Yi speaker) * Telephone Encounter - Aleshia Stark [...] Description 02/15/2025 11:15 AM EDT Office Visit [facility] MEDICINE [address] [place] [address] Jeni Garcia MD [address] [place] [address] 05/28/2025 10:00 AM EDT Office Visit [facility] ADULT DENTAL [address] [place] [address] [place] documented as of this encounter Visit Diagnoses Not on filedocumented in this encounter Additional Health Concerns Assessment Noted Time PHQ-9 Depression Total Score: 0 11/16/19 23 10:53 AM EST documented as of this encounter Care Teams Lining Stuffer Relationship Specialty Start Date End Date Jeni Garcia MD [address] [place] [phone] PCP - General Family Medicine 12/16/15 documented as of this encounter
--- OUTSIDE RECORDS SUMMARY | 2025-01-28 11:08 | XMS_ITS | Encounter Summary ---
Author Organization [employer] Address [address] [facility] 7t [place] [address] Care Team Providers Care Machine Coil Assembler Name Role Phone Jeni Garcia MD Primary Care Provider + Reason for Visit * Reason Comments Med Refill Encounter Details Date Type Department Care Team (Late st Contact Info) Description 10/19/2023 Refill [facility] MEDICINE [address] [place], [place] [phone] Jayshree Andrade DO [address] [place], [place] [phone] Social History Tobacco Use Types Packs/Day Years [...] Description 02/15/2025 11:15 AM EDT Office Visit [facility] MEDICINE [address] [place] [address] Jeni Garcia MD [address] [place] [address] 05/28/2025 10:00 AM EDT Office Visit [facility] ADULT DENTAL [address] [place] [address] [place] documented as of this encounter Visit Diagnoses Not on filedocumented in this encounter Additional Health Concerns Assessment Noted Time PHQ-9 Depression Total Score: 0 11/16/19 23 10:53 AM EST documented as of this encounter Care Teams Machine Coil Assembler Relationship Specialty Start Date End Date Jeni Garcia MD [address] [place] [address] PCP - General Family Medicine 12/16/15 documented as of this encounter
--- OUTSIDE RECORDS SUMMARY | 2025-01-28 11:08 | XMS_ITS | Encounter Summary ---
Author Organization [email or web address] [facility] Address [address] [facility] 7t [place] [address] Care Team Providers Care Fiberglass Product Tester Name Role Phone Jeni Garcia MD Primary Care Provider + Reason for Visit * Reason Onset Date Comments C Pap 02/22/2023 Encounter Details Date Type Department Care Team ([facility] st Contact Info) Description 02/22/2023 Telephone [facility] MEDICINE [address] [place], [place] [phone] Jeni Garcia MD [address] [place], [place] [phone] C Pap Social History Tobacco Use Types [...] EDT Travel History Travel Start Travel End [place] 12/07/2024 01/04/2025 COVID-19 Exposure Response Date Recorded [...] If any questions please contact pt at [phone] (sao tomean speaking) * Telephone Encounter - Temi Bojorquez - 02/22/2023 2:44 PM EDT Tc from Pt requesting a script for Cpap Machine talk on appt on 02/15 with provider. Pt give fax number to send script to [facility] # [phone]. [address] Garcia documented in this encounter Plan of Treatment Upcoming Encounters Date Type Department Care Team (Late st Contact Info) Description 02/15/2025 11:15 AM EDT Office Visit [facility] MEDICINE [address] [place] [address] Jeni Garcia MD [address] [place] [address] 05/28/2025 10:00 AM EDT Office Visit [facility] ADULT DENTAL [address] [place] [address] [place] documented as of this encounter Visit Diagnoses Not on filedocumented in this encounter Additional Health Concerns Assessment Noted Time PHQ-9 Depression Total Score: 0 11/16/19 23 10:53 AM EST documented as of this encounter Care Teams Fiberglass Product Tester Relationship Specialty Start Date End Date Jeni Garcia MD [address] [place] [address] PCP - General Family Medicine 12/16/15 documented as of this encounter
--- OUTSIDE RECORDS SUMMARY | 2025-01-28 11:08 | XMS_ITS | Clinical Summary ---
Author Organization 175 [facility] Address [address] [place] [address] Phone Care Team Providers Care Tour Counselor Name Role Phone Jeni Garcia MD Primary Care Provider + [phone] Allergies Active Allergy Reactions Criticality Noted Date [...] total) by mouth. 5 04/29/20 25 Active Hospital, Clinic, or Other Facility Administered Medication Ordered Dose Route Frequency Start Date End Date Status lidocaine (XYLOCAINE) 1 % injection 2 mLIndications:Post-tr aumatic osteoarthritis of left knee 2 mL inj Once PRN Procedure 01/02/2025 01/02/2025 Ended triamcinolone acetonide (KENALOG-40) 40 mg/mL injection 40 mgIndications:Post-tr aumatic osteoarthritis of left knee 40 mg IAtc Once PRN Procedure 01/02/2025 01/02/2025 Ended Active Problems Problem Noted Date Diagnosed Date Post-traumatic osteoarthritis of left knee 01/02 Myocardial infarction ([facility] V24, [facility] V28) 01/02/2025 S/P angioplasty with stent 01/02/2025 Status post total right knee replacement 025 Cholelithiasis 12/03/2024 CKD (chronic kidney disease) , stage III (CMS/HCC V24, [facility] V28) 11/15/2024 Severe obesity (BMI 35.0-39. 9) with comorbidity ([facility] V24, [facility] V28) 11/15/2024 Dental plaque 11/13/2024 Cellulitis 09/04/2024 Fracture of vertebra due to osteoporosis with delayed healing 07/06/2024 Overview (11/15/2024): Xray L-spine on 06/28: L4 fracture/sp T12 vertebral augmentation-previous fx- Leg pain, diffuse, right 06/28/2024 Celiac artery stenosis ([facility] V24) 06/13/2024 Renal artery stenosis ([facility] V24) 06/13/2024 Superior mesenteric artery stenosis ([facility] V24 ) 06/13/2024 Open broken tooth due to trauma [...] pain 06/28/2017 Hypothyroidism 06/28/2017 Rheumatoid arthritis, adult ([facility] V24, [facility]/ C V28) 06/28/2017 Degeneration of lumbar intervertebral disc 12/10 Chronic obstructive pulmonar y disease ([facility] V24, [facility] V28) 12/11/2012 Angle-closure glaucoma 09/29/2012 GERD (gastroesophageal reflux disease) 2 Eosinophil count raised 05/15/2012 Hypertension 04/12/2012 Gait instability 04/12/2012 Neck pain 04/12/2012 Encounters Date Type Department Care Team Description 01/02/2025 2:30 PM EDT Office Visit Orthopedic [facility] [address] [phone] Lazaro Saleh MD Post-traumatic osteoarthritis of left knee (Primary Dx); Status post total right knee replacement; Myocardial infarction, unspecified PA type, unspecified artery ([facility] V24, [facility] V28); S/P angioplasty with stent; Gait instability 11/26/2024 3:53 PM EST - 11/26/2024 11:59 PM EST Hospital Encounter [facility] Ultrasound [address] [place] [phone] Localized swelling of right lower leg Discharge Disposition: Home or Self Care 11/26/2024 1:30 PM EST Office Visit Orthopedic [facility] [address] [phone] Kp Lyn DPM Localized swelling of right [...] left lower extremity; Bilateral femoral artery stenosis ([facility] V24); Diabetic mononeuropathy simplex ([facility]) [E11.41]; Type II diabetes mellitus with peripheral circulatory disorder ([facility]) [E11.51] 11/15/2024 11:00 AM EST Office Visit Orthopedic [facility] [address] [phone] Eloisa Torres NP Post-traumatic osteoarthritis of left knee (Primary Dx); History of total right knee replacement (TKR); Personal history of DVT (deep vein thrombosis) 11/14/2024 1:40 PM EST Office Visit Gastroenterology - 299 [facility] [address] [facility] [address] [place] [address] Jing Fields NP Gastroesophageal reflux disease, unspecified whether esophagitis present (Primary Dx) 11/14/2024 Telephone Gastroenterology - [address] [facility] [address] [place] [phone] Jessy Aguila MA 10/31/2024 Telephone Gastroenterology - 299 [facility] [address] [facility] [address] [phone] Emma Leonard MA 10/31/2024 Telephone Gastroenterology - [address] [phone] Emma Leonard MA from Last 3 Months Surgical History Surgery [...] - Inhaled Oxygen Concentration - - Weight 77.2 kg (170 lb 3.2 oz) 01/02/2025 2:42 PM EDT Height 149.9 cm (4' 11 ) 01/02/2025 2:4 2 PM EDT Body Mass Index 34.38 01/02/2025 2:42 PM EDT Plan of Treatment Upcoming Encounters Date Type Department Care Team ([facility] st Contact Info) Description 04/10/2025 9:00 AM EDT Office Visit [facility]opedic [facility] 250 175 [facility] 250 [place] [phone] Lazaro Saleh MD [address] [place] [phone] Health Maintenance Due Date Last Done Comments Diabetes: Annual Foot Exam 1955 Diabetes: Annual Retina Eye Exam 1955 Zoster Vaccines (2 of 3) 03/19/2015 01/22/2015 RSV Immunization Adult Patients (1 - 1-dose 75+ series) 2018 Cholesterol Screening (Lipid Panel) 09/25/2022 Falls Risk Assessment 09/25/2022 Medicare Annual Wellness Visit 09/25/2022 Osteoporosis Screening (Bone Density Screening) 09/25/2022 Social Influencers of Health Screening 09/25/2022 Depression Screening 11/16/2023 11/16/2022 COVID-19 Vaccine ( season) 2024 09/23/2021, 12/30/2020, 12/02/2020 Diabetes: Blood Sugar Control Test (HGBA1C) 03/26/2025 09/25/2024, 09/25/2024, 08/19/2023 Influenza Vaccine (Season Ended) 2025 12/12/2023, 07/22/2022, 09/23/2021, Additional history exists Diabetes: Annual Urine Albumin-Creatinine Ratio (uACR) 09/25/2025 09/25/2024 Diabetes: Annual GFR (Glomerular Filtration Rate) 11/29/2025 11/29/2024 Hypertension/CHF/CAD Annual BMP Blood Test 11/29/2025 11/29/2024 DTaP,Tdap,and Td Vaccines (6 - Td or [...] age to complete this topic Meningococcal B Vaccine Aged Out No l onger eligible based on patient's age to complete this topic RSV Immunization Patients Under 20 months Aged Out No longer eligible based on patient's age to complete this topic Varicella Vaccines Aged Out No longer eligible based on patient's age to complete this topic Procedures Procedure Name Priority Date/Time Associated Diagnosis Comments MI ARTHROCENTESIS/ASP IRATION/INJECTION MAJOR JOINT/BURSA W/O U/S GUIDANCE Routine 01/02/2025 2:30 PM EDT Post-traumatic osteoarthritis of left knee VAS US DUPLEX LOWER EXT VENOUS RIGHT Routine 11/26/2024 4:18 PM EST Localized swelling of right lower leg XR KNEE 4+ VIEWS LEFT Routine 11/15/2024 10:43 AM EST Pain from Last 3 Months Results * MI ARTHROCENTESIS/ASPIRATION/INJECTION MAJOR JOINT/BURSA W/O U/S GUIDANCE (01/02/2025 2:30 PM EDT) Narrative Lazaro Saleh MD - 01/02/2025 2:30 PM EDT Lazaro Saleh MD ? 01/02/2025 ??5:16 PM L Inj/Asp: L knee Indications: pain Details: 22 G needle, anterolateral approach Medications: 2 mL lidocaine 1 %; 40 mg triamcinolone acetonide 40 mg/mL Outcome: tolerated well, no immediate complications Procedure: After discussion of risks and benefits, informed consent was verbally obtained for LEFT knee corticosteroid injection. ??The lateral arthroscopic soft spot was identified and marked. ??This was sterilized with chlorhexidine and alcohol. ??I then injected 2ml of 1% plain Lidocaine, 2ml 0.25% plain bupivacaine, and 40 mg of Kenalog intra-articularly without resistance. ??Hemostasis was achieved and a sterile Band-Aid was applied. ??The patient tolerated the procedure well. ?? Postinjection risks and instructions were reviewed including activity modification, cold therapy, potential NSAIDs use, effects on blood sugar levels, and monitoring for signs of complications. Informed Consent: ??Laterality: ??Left ??Relevant images/test results available and reviewed: yes ?Health status cleared: ??Yes ??Procedure/treatment, purpose, treatment alternatives, risks/potential complications and benefits explained: yes ?Patient questions answered: yes ?Patient agrees, verbalizes understanding, and wants to proceed: yes ?Consent given by: ??Patient ??Informed consent discussion completed by Physician/LORENE with patient: ?? Verbal ??Pre-procedure timeout performed: yes ?? us Lazaro Saleh MD IN CLINIC/BEDSIDE ORD ERABLES Final Result * Vascular US duplex lower extremity venous [...] Signed Date: 11/26/2024 16:32 ET Workstation ID: [id number] Transcribed By: Self Edit Transcribed Date: 11/26/2024 [...] Signed Date: 11/26/2024 16:32 ET Workstation ID: [id number] Transcribed By: Self Edit Transcribed Date: 11/26/2024 16:32 ET Kp Lyn DPM CV VASCULAR PROCEDURES Fi nal Result * XR Knee 4+ Views Left (11/15/2024 10:43 AM EST) Anatomical Region Laterality Modality Lower Extremities, Knee Left Computed Radiography Narrative 11/15/2024 11:28 AM EST Date of Visit: 11/15/2024 Reason for visit: ?? Left knee pain Views: AP, Lateral, Silvestre, [place] left knee Findings: On AP view there is narrowing through the medial greater than lateral compartment of the left knee with subchondral sclerosis and small marginal osteophytes. ??Note of stable appearing right total knee replacement. ??Moderate degenerative changes seen through the patellofemoral compartment on sunrise view. ??No acute findings. Impression: Moderate osteoarthritis left knee. Eloisa Torres LAUNDRY MACHINE OPERATOR IMG XR PROCEDURES Final Result from Last 3 Months Insurance MEDICAID - [place] [employer] MEDICARE Advance Directives Documents on File Type Date Recorded Patient Supervisor Feed House Expl anation Health Care Decision (hx) 03/27/2019 [...] (hx) 03/27/2019 AD CEJA DIRECTIVE Care Teams Tour Counselor Relationship Specialty Start Date End Date Jeni Garcia MD [address] [place] [phone] PCP - General 05/19/21
--- OUTSIDE RECORDS SUMMARY | 2025-01-28 11:08 | XMS_ITS | Encounter Summary ---
Author Organization [facility] Address [address] [facility] 7[address] [place] [address] Care Team Providers Care Magnetizer Name Role Phone Jeni Garcia MD Primary Care Provider + Encounter Details Date Type Department Care Team (Late Contact Info) Description 02/25/2023 Orders Only [facility] MEDICINE [address] [place], [place] [phone] Jeni Garcia MD [address] [place] [address] Obstructive sleep apnea syndrome (Primary Dx) Social [...] Description 02/15/2025 11:15 AM EDT Office Visit [facility] MEDICINE [address] [place] [address] Jeni Garcia MD [address] [place] [address] 05/28/2025 10:00 AM EDT Office Visit [facility] ADULT DENTAL [address] [place] [address] Blessing Bah documented as of this encounter Visit Diagnoses Diagnosis Obstructive sleep apnea syndrome- Primary Obstructive sleep apnea (adult) (pediatric) documented in this encounter Additional Health Concerns Assessment Noted Time PHQ-9 Depression Total Score: 0 11/16/19 23 10:53 AM EST documented as of this encounter Care Teams Magnetizer Relationship Specialty Start Date End Date Jeni Garcia MD [address] [place] [phone] PCP - General Family Medicine 12/16/15 documented as of this encounter
--- OUTSIDE RECORDS SUMMARY | 2025-01-28 11:09 | XMS_ITS | Encounter Summary ---
Author Organization [employer] [employer] Address [address] [facility] 7t [place] [address] Care Team Providers Care Grassroots Organizer Name Role Phone Jeni Garcia MD Primary Care Provider + Reason for Visit * Reason Onset Date Comments Call Back Request 01/02/2025 Encounter Details Date Type Department Care Team ([facility] Contact Info) Description 01/02/2025 Telephone [facility] MEDICINE [address] [place], [place] [phone] Jeni Garcia MD [address] [place], [place] [phone] Call Back Request Social History Tobacco Use Types Packs/Day Years [...] encounter Miscellaneous Notes * Telephone Encounter - Sayra Leonard PharmD - 01/02/2025 2:38 PM EDT Pharmacy had contacted for pre-visit HDF. Called daughter back, all set. * Telephone Encounter - Jonel Gerardo - 01/02/2025 11:58 AM EDT Tc from daughter calling back regarding message prior stating she received a call inquiring about tomorrows HDF visit as well as new medication. Pt is unsure who she had spoken to and would like a call back to further clarify. Daughter also stated they may be a bit late to the visit because they dohave another appt prior. Dry Cleaning Attendant did inform them on 15 min mao period but forwarding message as anFYI. Please contact Daughter at [phone]. documented in this encounter Plan of Treatment Upcoming Encounters Date Type Department Care Team (Late st Contact Info) Description 02/15/2025 11:15 AM EDT Office Visit [facility] MEDICINE [address] [place] [address] Jeni Garcia MD [address] [place] [address] 05/28/2025 10:00 AM EDT Office Visit [facility] ADULT DENTAL [address] [place] [address] Blessing Bah documented as of this encounter Visit Diagnoses Not on filedocumented in this encounter Additional Health Concerns Assessment Noted Time PHQ-9 Depression Total Score: 0 11/16/19 23 10:53 AM EST documented as of this encounter Care Teams Grassroots Organizer Relationship Specialty Start Date End Date Jeni Garcia MD [address] [place] [address] PCP - General Family Medicine 12/16/15 documented as of this encounter
--- OUTSIDE RECORDS SUMMARY | 2025-01-28 11:09 | XMS_ITS | Encounter Summary ---
Author Organization [facility] Address [address] [facility] 7t [place] [address] Care Team Providers Care Vice President Corporate Communications Name Role Phone Jeni Garcia MD Primary Care Provider + Encounter Details Date Type Department Care Team (Late st Contact Info) Description 09/27/2022 [facility] Health Information Management [address] [place], [place] [phone] Jeni Garcia MD [address] [place], [place] [phone] Social History Tobacco Use Types Packs/Day Years Used Date Smoking Tobacco: Never Assessed Comments Unknown Sex and Gender Information Value Date Recorded Sex Assigned at Female 08/16/2022 10:14 AM EDT Legal Sex Female 10:14 AM EDT Gender Identity Female 08/16/2022 10:14 AM EDT Sexual Orientation Straight 08/16/2022 10 :14 AM EDT Travel History Travel Start Travel End [place] 12/07/2024 01/04/2025 documented as of this encounter Plan of Treatment Upcoming Encounters Date Type Department Care Team (Late st Contact Info) Description 02/15/2025 11:15 AM EDT Office Visit [facility] MEDICINE [address] [place] [phone] Jeni Garcia MD [address] [place] [phone] 05/28/2025 10:00 AM EDT Office Visit [facility] ADULT DENTAL [address] [place], [place] [phone] Blessing Bah documented as of this encounter Visit Diagnoses Not on filedocumented in this encounter Care Teams Vice President Corporate Communications Relationship Specialty Start Date End Date Jeni Garcia MD [address] [place] [phone] PCP - General Family Medicine 12/16/15 documented as of this encounter
--- OUTSIDE RECORDS SUMMARY | 2025-01-28 11:09 | XMS_ITS | Clinical Summary ---
Author Organization [facility] Address [address] [facility] [address] [place] [address] Phone Care Team Providers Care Furniture Inspector Name Role Phone Jeni Garcia MD Primary Care Provider + [phone] Allergies Active Allergy Reactions Criticality Noted Date [...] FOR 30 DAYS 3 Active Cholecalciferol (Vitamin D3) 125 MCG (5000 UT) capsule TAKE 1 CAPSULE BY MOUTH EVERY TUESDAY AND TUESDAY 24 capsule 1 5 Active Active Problems Problem Noted Date Diagnosed [...] 12/17/2024 Refill [facility] [address] [place] [phone] Luke Quinn MD from Last 3 Months Immunizations Immunization Administration Dates Next Due Moderna SARS-COV-2 12/30/2020,12/02/2020 [...] Office Visit [facility] [address] [phone] Luke Quinn MD [address] [phone] Health Maintenance Due Date Last Done Comments Diabetes: Ophthalmology Exam 12/17/2024 Diabetes: Pedal Pulse Checked 12/17/2024 Diabetes: Sensory Foot Exam 12/17/2024 Diabetes: Visual Foot Exam 12/17/2024 Diabetes: Hemoglobin A1C 12/24/2024 09/25/2024, 11/0 12/2022 Influenza Vaccine (Season Ended) 2025 12/12/2023, 07/22/2022, 09/23/2021, Additional history exists Pneumococcal Vaccine: 50+ Years Completed 10/31/2023 Hepatitis B Vaccine Aged Out No longe r eligible based on patient's age to complete this topic Procedures Procedure Name Priority Date/Time Associated Diagnosis Comments HEMOGLOBIN A1C Routine 09/25/2024 10:16 AM EST Hypertension from Last 3 Months or Most Recently Relevant to Health Maintenance Results * (ABNORMAL) Hemoglobin A1c (09/25/2024 10:16 AM EST) Hemoglobin A1C 6.3(H) 4.8 - 5.6 % [facility] Comment: ? Prediabetes: 5.7 - 6.4 ? Diabetes: >6.4 ? Glycemic control for adults with diabetes: <7.0 Blood (Blood, Venous) 09/25/2024 10:16 AM EST 09/25/2024 Luke Quinn MD LAB BLOOD ORDERABLES Final Result [facility] [address] [place] [phone] from Last 3 Months or Most Recently Relevant to Health Maintenance Insurance Dual [employer] Dual [employer] Medicaid [place] Care Teams Furniture Inspector Relationship Specialty Start Date End Date Jeni Garcia MD [address] [place] [phone] PCP - General Internal Medicine 08/06/21
--- OUTSIDE RECORDS SUMMARY | 2025-01-28 11:09 | XMS_ITS | Clinical Summary ---
Author Organization [employer] Address [address] [facility] [address] [place] [address] Care Team Providers Care Heat Reader Name Role Phone Jeni Garcia MD Primary [...] if needed for mild pain 015 Active folic acid (Folvite) 1 MG tablet [...] DAY IN THE MORNING 90 tablet 1 08/12/2 024 Active betamethasone valerate (Valisone) 0.1 % cream APPLY TOPICALLY TWICE A DAY 30 g 1 Active levothyroxine (Synthroid, Levoxyl) 50 MCG tabletIndications :Acquired hypothyroidism TAKE 1 TABLET BY MOUTH EVERY DAY IN THE MORNING 90 tablet 1 Active fluticasone (Flonase) 50 MCG/ACT nasal spray Administer 1 spray into each nostril 2 times daily for 14 days. Shake gently. Before first use, prime pump. After use, clean tip and replace cap. 16 mL Active albuterol 1.25 MG/3ML nebulizer solution Take 3 mL (1.25 mg) by nebulization every 6 (six) hours if needed for wheezing. 75 mL 3 2025 Active carvedilol (Coreg) 6.25 MG tabletIndications :Primary hypertension TAKE 1 TABLET BY MOUTH WITH BREAKFAST AND EVENING MEAL 180 tablet Active cholecalciferol (Vitamin D-3) 125 MCG (5000 UT) capsule Take 1 capsule by mouth. Every Tuesday and Active pantoprazole (ProtoNix) 40 MG EC tablet Take 1 tablet by mouth 2 times daily. 2025 Active olmesartan-hydroC HLOROthiazide (BENIcar HCT) 40-12.5 MG tablet Take 0.5 tablets by mouth Once per day. Sp CAD/DC losartan Active atorvastatin (Lipitor) 80 MG tablet Take 1 tablet (80 mg) by mouth Once per day. For 30 days, then decrease to 40 mg once daily 80 tablet Active clopidogrel (Plavix) 75 MG tablet Take 1 tablet (75 mg) by mouth Once per day. 30 tablet Active senna-docusate sodium (Senokot-S) 8.6-50 MG tablet Take 1 tablet by mouth Once per day. 30 tablet 2025 Active nitroglycerin (Nitrostat) 0.[address] 1 tablet (0.4 mg) under the tongue every 5 (five) minutes if needed for chest pain. 90 tablet 2025 Active sucralfate (Carafate) 1 g tablet Take 1 tablet (1 g) by mouth before breakfast, before lunch, before evening meal, and at bedtime for 7 days. 28 tablet 025 2024 Active gabapentin (Neurontin) 100 MG capsuleIndication s:Degeneration of lumbar intervertebral disc,Meralgia paresthetica of right side TAKE 1 CAPSULE BY MOUTH THREE TIMES A DAY 90 capsule 11 025 Active docusate sodium (Colace) 100 MG capsule TAKE 1 CAPSULE BY MOUTH TWICE A DAY 022 2024 Discontinued(I neffective) gabapentin (Neurontin) 100 MG capsuleIndication s:Degeneration of lumbar intervertebral disc,Meralgia paresthetica of right side TAKE 1 CAPSULE BY MOUTH THREE TIMES A DAY 90 capsule 024 2024 Discontinued(R eorder (will not trigger notification to Pharmacy)) omeprazole (PriLOSEC) [address] capsuleIndication s:Gastroesophagea l reflux disease, unspecified whether esophagitis present TAKE 1 CAPSULE BY MOUTH TWICE A DAY 180 capsule 1 025 2024 Discontinued(M ed list cleanup (will not trigger notification to Pharmacy)) azithromycin (Zithromax) 250 MG tablet Take 2 tabs PO daily x 1d then 1 tab PO daily on D2 to D5 6 tablet 025 2024 Discontinued(M ed list cleanup (will not trigger notification to Pharmacy)) losartan (Cozaar) 100 MG tabletIndications :Primary hypertension TAKE 1 TABLET BY MOUTH EVERY DAY IN THE MORNING 90 tablet 1 025 2024 Discontinued(S top taking at discharge) clopidogrel (Plavix) 75 MG tablet Take 1 tablet by mouth Once per day. 2024 Discontinued(R eorder (will not trigger notification to Pharmacy)) aspirin 81 MG EC tablet Take 100 mg by mouth Once per day. 2024 Discontinued(R eorder (will not trigger notification to Pharmacy)) atorvastatin (Lipitor) 80 MG tablet Take 1 tablet by mouth Once per day. For 30 days, then decrease to 40 mg once daily 2024 Discontinued(R eorder (will not trigger notification to Pharmacy)) aspirin 81 MG EC tablet Take 1 tablet (81 mg) by mouth Once per day. 30 tablet 11 025 2024 Discontinued(T herapy completed) famotidine (Pepcid) 20 MG tablet Take 1 tablet (20 mg) by mouth if needed in the morning and at bedtime for heartburn. 30 tablet 11 025 2024 Discontinued(I neffective) predniSONE (Deltasone) 20 MG tablet Take 1 tablet (20 mg) by mouth Once per day for 5 days. 5 tablet 025 2024 levoFLOXacin (Levaquin) 250 MG tabletIndications :Urinary tract infection without hematuria, site unspecified Take 1 tablet (250 mg) by mouth Once per day for 5 days. 5 tablet 025 2024 Active Problems Problem Noted Date Diagnosed Date Chronic ulcer of right thigh 01/22/2025 Assessment & Plan (01/23/2025 8:27 PM EDT): May be due to friction with previous Greenberg catheter. She will have also dressing by RN today Continue daily dressing with topical antibiotics and follow-up with me in a month, reconsult as needed Bandemia 01/04/2025 Assessment & Plan (01/04/2025 10:38 AM EDT): Workup done today including chest x-ray, UA, COVID test, flu test all of them came back negative I am waiting for urine culture results patient will be contacted with results And suspected his leukocytosis is reactive due to recent cardiac cath procedure and also patient is known to have rheumatoid arthritis in his and has been off her methotrexate she will follow-up with PCP and cardiology Coronary artery disease invo lving clark[place] coronary artery of [place] heart 01/03/2025 Assessment & Plan (01/03/2025 1:46 PM EDT): S/P NSTEMI + PTCA to RCA. Continue Plavix + Aspirin + Atorvastatin 80 mg + BP medications and fu with cardiology next week. Advised regarding holding physical activity prn chest pain, SOB, tiredness, dizziness. She will take SLNG prn symptoms and fu with cardiology. WALLY (acute kidney injury) 01/03/2025 Assessment & Plan (01/03/2025 1:44 PM EDT): S/P IV contrast. Check BMP and fu with me. Stage 3a chronic kidney disease 12/07/2024 Dental [...] artery stenosis 06/13/2024 Celiac artery stenosis 06/13/2024 Assessment & Plan (01/23/2025 8:27 PM EDT): Will call vascular surgery to schedule an earlier appointment, see above Open broken tooth due to trauma without complica tion 04/26/2024 Abdominal pain 04/16/2024 Assessment & Plan (01/23/2025 8:29 PM EDT): Concern regarding symptomatic mesenteric ischemia, patient had an MRI consistent with vascular calcification and stenosis. Will call vascular surgery to have her seen sooner We discussed importance of go to ED if symptoms do not improve, optimize BP control. DC Pepcid and start Protonix (no interaction with Plavix) Take sucralfate as needed abdominal pain x 1 week Assessment & Plan (04/25/2024 11:20 AM EDT): [...] BID Tylenol PRN Toradol injection IM today Obesity, morbid 08/19/2023 08/19/2023 Assessment & Plan (03/13/2024 2:49 PM EDT): Discussed re weight reduction options including exercise, life style modifications, diet, referral to 4 h youth development specialist. Discussed re lower calorie intake, increase [...] lumbar intervertebral disc 12/10 Assessment & Plan (01/23/2025 8:29 PM EDT): Seen by pain clinic, epidural injections on hold for now due to recent episode of ACS Restart gabapentin 3 times per day, hold for fluid overload/leg edema/orthopnea Assessment & Plan (12/07/2024 1:23 PM EST): Seen by pain clinic, awaiting neurosurgery evaluation next week. Assessment & Plan (04/26/2023 1:34 PM EDT): doing well, needs to go back to gabapentin TID use tylenol PRN ambulation with a cane to prevent falls Chronic obstructive pulmonary disease 12/11/2012 Assessment & Plan (01/23/2025 8:26 PM EDT): Doing well on Advair, Singulair and albuterol as needed Follow-up with marble supervisor Assessment & Plan (01/03/2025 1:36 PM EDT): Seems to be stable, continue Advair BID + Singulair + Albuterol prn. Assessment & Plan (12/07/2024 1:22 PM EST): [...] pain 04/12/2012 Hypertension 04/12/2012 Assessment & Plan (01/03/2025 1:44 PM EDT): Controlled. Compliant w/meds Continue Olmesartan/HCTZ 40-12.5 half a tablet daily, fu BP at night appointment. Consider switching back to Losartan. Of note, pt did not tolerate HCTZ in the past due to worsening urinary incontinence. Counseled re low salt diet/increase moderate physical activity. Check home BP BIW and prn CP/PAREDES/WALTERS Non smoking patient. Assessment & Plan (04/25/2024 11:22 AM EDT): [...] Problem Noted Date Diagnosed Date Resolved Date Influenza A 12/07/2024 01/03/2025 Assessment & Plan (12/07/2024 1:10 PM EST): Possible complication of Bronchitis, ordered chest X-ray. Continue Tylenol alternating with Ibuprofen. Encouraged fluids po and rest. Advised to go to the ED if symptoms do not improve within 24 hrs of starting treatment. Bronchitis 12/07/2024 01/03/2025 Assessment & Plan (12/07/2024 1:18 PM EST): Concerned regarding bacterial superimposed infection. Order Chest X-ray to rule out CAP. Start Z-Pack + Albuterol Nebs every 2-6 hrs. She will start Medrol Pack if SOB does not improve with Albuterol Nebs. Increase PO fluids and rest at home. FU on Tuesday with Unified Communications Engineer. Will call tomorrow for health status check. Cough in adult 08/22/2023 01/03/2025 Assessment & Plan (08/22/2023 11:43 AM EST): Has COPD exacerbation Prescription for medrol 7x days Complete zpak today Pro air inhaler + spacer Q6H. Rest at home Follow up in 2 months Preoperative examination 02/15/202312/2022 Assessment & Plan (02/15/2023 [...] Encounters Date Type Department Care Team Description 01/22/2025 11:30 AM EDT Office Visit [facility] [address] [place] [phone] Jeni Garcia MD Epigastric pain (Primary Dx); Chronic ulcer of right thigh, unspecified ulcer stage (CMS/HCC); Chronic obstructive pulmonary disease, unspecified COPD type (CMS/HCC); Celiac artery stenosis (CMS/HCC); Degeneration of intervertebral disc of lumbar region with discogenic back pain; Degeneration of lumbar intervertebral disc; Meralgia paresthetica of right side 01/22/2025 Travel 01/10/2025 Telephone [facility] [address] [place] [phone] Jeni Garcia MD Results 01/10/2025 Telephone [facility] [address] [place] [phone] Jeni Garcia MD Nurse Triage 01/07/2025 Orders Only [address] [address] Rose De La Rosa MD Urinary tract infection without hematuria, site unspecified (Primary Dx) 01/04/2025 9:20 AM EDT Office Visit [facility] [address] [place] [address] Rose De La Rosa MD Bandemia (Primary Dx); Leukocytosis, unspecified type 01/04/2025 Orders Only [facility] [address] [place] [address] Rose De La Rosa MD 01/04/[address] [address] Jeni Garcia MD Results 01/04/2025 Travel 01/03/2025 10:45 AM EDT Office Visit [facility] [address] [facility] [place] [phone] Jeni Garcia MD WALLY (acute kidney injury) ([facility]) (Primary Dx); Coronary artery disease involving [place] coronary artery of [place] heart, unspecified whether angina present; Chronic obstructive pulmonary disease, unspecified COPD type ([facility]); Primary hypertension; Bandemia 01/03/2025 Telephone [facility] [address] [place] [address] Allyson Todd, ROSITA Care Coordination 01/03/2025 Telephone [facility] [address] [place] [phone] Jeni Garcia MD Care Coordination; Results 01/03/2025 Travel 01/02/2025 Telephone [facility] [address] [place] [phone] Jeni Garcia MD Chart prep 01/02/2025 Telephone [facility] [address] [place] [phone] Jeni Garcia MD Call Back Request 12/31/2024 Patient Outreach [facility] [address] [place] [phone] Jeni Garcia MD reminder ([facility] schedule reminder) 12/24/2024 Telephone [facility] [address] [place] [phone] Jeni Garcia MD Hospital Follow-up 12/18/2024 Refill [facility] [address] [place] [phone] Jeni Garcia MD Primary hypertension 12/18/2024 Refill [facility] [address] [place] [phone] Rose De La Rosa MD Primary hypertension 12/08/2024 Telephone [facility] [address] [place] [address] Jeni Garcia MD 12/07/2024 12:15 PM EST Office Visit [facility] [address] [place] [phone] Jeni Garcia MD Influenza A (Primary Dx); Bronchitis; Pulmonary emphysema, unspecified emphysema type (CMS/HCC); Degeneration of intervertebral disc of lumbar region with discogenic back pain 12/07/2024 Travel 12/05/[address] [address] Jeni Garcia MD Chart prep 12/04/[address] [address] Jeni Garcia MD Status Check ED visit 12/04/[address] [address] Jeni Garcia MD ER Follow-up 11/29/2024 Orders Only GENERIC EXTERNAL DATA DEPARTMENT Provider, Generic External Data 11/28/[address] [address] Jeni Garcia MD Nurse Triage 11/13/2024 1:00 PM EST Office Visit [facility] [address] [place] [phone] OlvinBlessing Dental calculus (Primary Dx); Dental plaque; Normal oral exam 11/13/[address] [address] Jeni Garcia MD DCF Form (I called [...] to call the forms department at ext [phone].) 11/01/2024 Orders Only [facility] External Provider, [facility] 11/01/2024 Refill [facility] [address] [place] [phone] Jeni Garcia MD Acquired hypothyroidism; Gastroesophageal reflux [...] EDT Travel History Travel Start Travel End [place] 12/07/2024 01/04/2025 Last Filed Vital Signs Vital Sign Reading Time Taken Comments Blood Pressure 143/56 01/22/2025 11:49 AM EDT Pulse 71 01/22/2025 11:49 AM EDT Temperature 36.1 ??C (97 ??F) 01/22/2025 11: 49 AM EDT Respiratory Rate 20 01/22/2025 11:4 9 AM EDT Oxygen Saturation 100% 01/22/2025 1:2 4 PM EDT After sitting down Inhaled Oxygen Concentration - - Weight 74.6 kg (164 lb 6 oz) 01/22/2025 11:49 AM EDT Height 149.9 cm (4' 11 ) 01/22/2025 11: 49 AM EDT Body Mass Index 33.2 01/22/2025 11:49 AM EDT Plan of Treatment Upcoming Encounters Date Type Department Care Team (Late st Contact Info) Description 02/15/2025 11:15 AM EDT Office Visit [facility] [address] [place] [address] Jeni Garcia MD [address] [place] [address] 05/28/2025 10:00 AM EDT Office Visit [facility] [address] [place] [address] [facility] Health Maintenance Due Date Last [...] X-Ray: Bitewings 05/25/2025 05/24/2024, 11/11 Tobacco Screening 01/22/2026 01/22/2025 Dental X-Ray: Full Mouth 05/25/2027 05/24/2024 Lipid [...] Procedure Name Priority Date/Time Associated Diagnosis Comments CULTURE, URINE, ROUTINE Routine 01/04/2025 10:20 AM EDT CBC WITH AUTO DIFFERENTIAL Routine 01/04/2025 10:17 AM EDT Bandemia SED RATE BY MODIFIED WESTERGREN Routine 01/04/2025 10:00 AM EDT Bandemia POCT INFLUENZA B (ID NOW RAPID MOLECULAR) Routine 01/04/2025 9:54 AM EDT Leukocytosis, unspecified type POCT INFLUENZA A (ID NOW RAPID MOLECULAR) Routine 01/04/2025 9:54 AM EDT Leukocytosis, unspecified type POCT RAPID COVID ANTIGEN Routine 01/04/2025 9:45 AM EDT Leukocytosis, unspecified type POCT URINALYSIS DIPSTICK Routine 01/04/2025 9:43 AM EDT Leukocytosis, unspecified type XR CHEST 2 VIEWS Routine 01/04/2025 9:14 AM EDT Bandemia TSH W/REFLEX TO FT4 Routine 01/03/2025 1 2:38 PM EDT Primary hypertension CBC WITH AUTO DIFFERENTIAL Routine 01/03/2025 12:38 PM EDT Coronary artery disease involving [place] coronary artery of [place] heart, unspecified whether angina present BASIC METABOLIC PANEL Routine 01/03/2025 12:38 PM EDT WALLY (acute kidney injury) (CMS/HCC) XR CHEST 2 VIEWS Routine 12/07/2024 12:4 [...] Recently Relevant to Health Maintenance Results * Culture, Urine, Routine (01/04/2025 10:20 AM EDT) Urine Urine specimen obtained by clean catch procedure / Unknown 01/04/2025 10:20 AM EDT 01/04/2025 6:49 PM EDT Comment:[facility] - 01/07/2025 8:14 AM EDT Enterococcus faecalis Quant > 100,000 cfu/mL Enterococcus faecalis: Ampicillin <=2(S) Enterococcus faecalis: Levofloxacin 0.5(S) Enterococcus faecalis: Nitrofurantoin <=16(S) Enterococcus faecalis: Tetracycline >=16(R) Enterococcus faecalis: Vancomycin 1(S) Specimen Source: Urine clean catch Rose Elizalde MD LAB MICROBIOLOGY - [facility] ORDERABLES Final Result [facility] [address] [place] [address] [phone] * (ABNORMAL) CBC auto differential (01/04/2025 10:17 AM EDT) Only the most recent of3 resultswithin the time period is included. White Blood Count 14.8(H) 4.8 - 10.8 X10*3/uL [facility] Red Blood Count 4.08(L) 4.20 - 5.50 X10*6/uL [facility] Hemoglobin 11.0(L) 12.0 - 16.0 g/dl [facility] Hematocrit 33.3(L) 37.0 - 47.0 % [facility] Mean Corpuscular Volume 81.6 80.0 - 98.0 fL [facility] Mean Corpuscular Hemoglobin 27.0 27.0 - 33.0 pg [facility] Mean Corpuscular HGB Conc 33.0 31.0 - 35.0 g/dl [facility] Red Cell Distribution Width 16.6(H) 11.0 - 16.0 % [facility] Platelet Count 265 160 - 400 X10*3/uL [facility] Mean Platelet Volume 12.1 9.4 - 12.3 fL [facility] Neutrophils Percent Auto 86.6(H) 45 - 73 % [facility] Imm Gran Pct Auto 0.6(H) 0.0 - 0.4 % [facility] Lymphocytes Percent Auto 7.9(L) 20 - 40 % [facility] Monocytes Percent Auto 4.8 2 - 11 % [facility] Eosinophils Percent Auto 0.0 0 - 4 % [facility] Basophils Percent Auto 0.1 0 - 2 % [facility] NRBC Pct Auto 0.0 0.0 - 0.2 /100WBC [facility] Neutrophils Absolute Auto 12.8(H) 2.0 - 8.3 x10*3/uL [facility] Imm Gran Abs Auto 0.09(H) 0.00 - 0.03 X10*3/uL [facility] Lymphocytes Absolute Auto 1.2 1.2 - 4.9 X10*3/uL [facility] Monocytes Absolute Auto 0.7 0.1 - 1.2 X10*3/uL [facility] Eosinophils Absolute Auto 0.0 0.0 - 0.4 X10*3/uL [facility] Basophils Absolute Auto 0.0 0.0 - 0.2 X10*3/uL [facility] NRBC Abs Auto 0.000 0.0 - 0.012 X10*3/uL [facility] Blood Venous blood specimen / Unknown 01/04/2025 10:17 AM EDT 01/04/2025 11:07 AM EDT Jeni Garcia MD LAB BLOOD ORDERABLES Fin al Result [facility] [address] [place] [phone] * (ABNORMAL) Sed Rate by Modified Abisairen (01/04/2025 10:00 AM EDT) Erythrocyte Sedimentation Rate 34(H) 0 - 20 MM/HR [facility] Comment:Patients with polycy themia and many hemoglobin abnormalitiesmay have depressed sed rates whereas patients with anemiamay have elevated sed rates. Blood Venous blood specimen / Unknown 01/04/2025 10:00 AM EDT 01/04/2025 11:07 AM EDT us Jeni Garcia MD LAB BLOOD ORDERABLES Fin al Result Performing Organization Address [facility] de Phone Number [facility] [address] [place] [phone] * POCT Rapid Influenza B STARR ID NOW (01/04/2025 9:54 AM EDT) Influenza B Negative Negative, Indeterminate [facility] QC Media Lot # [id number] [facility] Lot# Expiration Date [facility] Swab 01/04/2025 9:54 AM EDT us Rose Elizalde MD POINT OF CARE TEST EN TER/EDIT ORDERABLES Final Result Performing Organization Address [facility] de Phone Number [facility] [address] [place] [phone] * POCT Rapid Influenza A STARR ID NOW (01/04/2025 9:54 AM EDT) [facility] Influenza A Negative Negative, Indeterminate [facility] QC Media Lot # [id number] [facility] Lot# Expiration Date [facility] Swab 01/04/2025 9:54 AM EDT us Rose Elizalde MD POINT OF CARE TEST EN TER/EDIT ORDERABLES Final Result Performing Organization Address [facility] Co de Phone Number [facility] [address] [place] [phone] * POCT Rapid Covid-19 BinaxNOW (01/04/2025 9:45 AM EDT) Rapid COVID Ag Negative QC Media Lot # [id number] Lot# Expiration Date Swab 01/04/2025 9:45 AM EDT us Rose Elizalde MD POINT OF CARE TEST EN TER/EDIT ORDERABLES Final Result * POCT Urinalysis (01/04/2025 9:43 AM EDT) Color, UA Yellow Clarity, UA Clear Glucose, UA Negative Bilirubin, UA Negative Ketones, UA Negative Spec Grav, UA 1.015 Blood, UA Negative Negative, None Detected pH, UA 7.0 Protein, UA Negative Urobilinogen, UA 0.2 Leukocytes, UA Negative Negative, Rare, Trace Nitrite, UA Negative Negative, None Detected Appearance, UA Yellow QC Media Lot # [id number] Lot# Expiration Date [id number] Urine 01/04/2025 9:43 AM EDT us Rose Elizalde MD POINT OF CARE TEST EN TER/EDIT ORDERABLES Final Result * XR Chest 2 Views (01/04/2025 9:14 AM EDT) Only the most recent of3 resultswithin the time period is included. Anatomical Region Laterality Modality Chest Radiographic Tamiko ging 01/04/2025 9:14 AM EDT Narrative 01/04/2025 9:38 AM EDT ?[facility] ?[address] ?[place] [address] ?XRay Report ? Signed ? Patient: Joan Armendariz R ?MR#: [id number] ?? [id number] ? : 1945 ?Acct:[id number] ? Age/Sex: 79 / F ?ADM Date: 01/04/ ? Loc: HO.HHCX ? Attending Dr: Jeni Garcia MD ? Ordering Physician: Jeni Garcia MD ?? Date of Service: 01/04/25 ?? Procedure(s): XR chest 2V ?? Accession Number(s): [id number] ? cc: Jeni Garcia MD ? EXAMINATION: ??XR CHEST 2 VIEWS ? HISTORY: Leukocytosis + weakness/status post an NSTEMI ? COMPARISON: Comparison is made with the prior examination dated ?? 12/07/2024. ? FINDINGS: ??PA and lateral views of the chest are submitted. There is ?? linear scarring in the lingula. The lungs are otherwise clear. ??There ?? is no pleural effusion, pneumothorax, or pulmonary vascular congestion. ?? The heart is normal in size. The aorta is calcified. ??The patient is ?? status post reverse left total shoulder arthroplasty. There is ?? degenerative disc disease of the spine. The patient is status post ?? lower thoracic kyphoplasty. ? XR/XR chest 2V ?? IMPRESSION: ?? No acute cardiopulmonary abnormality. ? Electronically signed by: ??Bony Ricks MD ??01/04/2025 09:36 AM EDT ? Dictated By: ?Bony Ricks MD ? Signed By: ?<Electronically signed by Bony Ricks MD in OV> ?01/04/25 0936 ? DD/ 0914 ? TD/TT: 01/04/25927 ? Chief Operator Hydroformer: ? Procedure Note Libertad, Willie - 01/04/[address] [address] XRay Report Signed Patient: Joan Armendariz RMR#: [id number] : 1945cct:[id number] Age/Sex: 79 / FADM Date: 01/04/25 Loc: HO.HHCX Attending Dr: Jeni Garcia MD Ordering Physician: Jeni Garcia MD Date of Service: 01/04/25 Procedure(s): XR chest 2V Accession Number(s): [id number] cc: Jeni Garcia MD EXAMINATION: XR CHEST 2 VIEWS HISTORY: Leukocytosis + weakness/status post an NSTEMI COMPARISON: Comparison is made with the prior examination dated 12/07/2024. FINDINGS: PA and lateral views of the chest are submitted. There is linear scarring in the lingula. The lungs are otherwise clear. There is no pleural effusion, pneumothorax, or pulmonary vascular congestion. The heart is normal in size. The aorta is calcified. The patient is status post reverse left total shoulder arthroplasty. There is degenerative disc disease of the spine. The patient is status post lower thoracic kyphoplasty. XR/XR chest 2V IMPRESSION: No acute cardiopulmonary abnormality. Electronically signed by: Bony Ricks MD 01/04/2025 09:36 AM EDT RP Dictated By: Bony Ricks MD Signed By: <Electronically signed by Bony Ricks MD in OV> 01/04/2536 DD/ 3 TD/TT: 01/04/25927 Chief Operator Hydroformer: us Jeni Garcia MD IMG XR PROCEDURES Final Result * TSH with Reflex to Free T4 (01/03/2025 12:38 PM EDT) TSH reflex Free T4 0.65 0.32 - 4.0 uIU/mL [facility] Blood 01/03/2025 12:3 8 PM EDT 01/03/2025 1:06 PM EDT us Jeni Garcia MD LAB BLOOD ORDERABLES Fin al Result [facility] [address] [place] [phone] * (ABNORMAL) Basic Metabolic Panel (01/03/2025 12:38 PM EDT) Sodium 135 135 - 145 mmol/L [facility] Potassium 3.7 3.3 - 5.1 mmol/L [facility] Chloride 98 96 - 108 mmol/L [facility] Carbon Dioxide 25 22 - 29 mmol/L [facility] Anion Gap 16 12 - 20 [facility] Urea Nitrogen (BUN) 25(H) 9 - 16 mg/dL [facility] Creatinine, Serum 1.20 0.5 - 1.4 mg/dL [facility] Estimated Glomerular Filt Rate 43 [facility] Comment:Chronic Kidney Disea se: Estimated GFR < 60 mL/min/1.18m5Zfvudu Kidney Disease: Estimated GFR < 15 mL/min/1.73m2 Glucose 111 60 - 115 mg/dL [facility] Calcium 9.4 8.4 - 10.2 mg/dL [facility] Blood Venous blood specimen / Unknown 01/03/2025 12:38 PM EDT 01/03/2025 1:06 PM EDT Jeni Garcia MD LAB BLOOD ORDERABLES Fin al Result Performing Organization Address [facility]/ZIP Co de Phone Number [facility] [address] [place] [phone] * (ABNORMAL) SARS-CoV-2 RNA, Influenza A/B, and RSV RNA, Ql NAAT (11/29/2024 7:15 PM EST) Influenza A PCR POSITIVE(A) Negative [facility] Influenza B PCR NEGATIVE Negative [facility] Resp Syncy Virus RNA Qual PCR NEGATIVE Negative [facility] SARS COV2 PCR NEGATIVE Negative [facility] Comment:All test results mus t be [...] use by authorized laboratories.Testing performed on the [employer] GeneXpert utilizingreal-time RT-PCR.All SARS CoV2 and positive influenza A/B results arereported to [facility]. 11/29/2024 7:15 PM EST 11/29/2024 7:17 PM EST us Generic External Data Provider LAB MICROBIOLOGY - GENERAL ORDERABLES Final Result Performing Organization Address [facility]/ZIP Co de Phone Number [facility] [address] [place] [phone] * High Sensitivity Troponin I (11/29/2024 7:06 PM EST) TROPONIN I HIGH SENSITIVITY 4.3 <3.5 - 17.0 ng/L [facility] Comment:The Starr high sens itivity Troponin-I results should beused in conjunction with other diagnostic information suchas ECG, clinical observations and information, and patientsymptoms to aid in the diagnosis of [place]. 11/29/2024 7:06 PM EST 11/29/2024 7:10 PM EST Generic External Data Provider LAB BLOOD ORDERAB LES Final Result Performing Organization Address [facility]/ZIP Co de Phone Number [facility] [address] [place] [phone] * (ABNORMAL) Prothrombin Time-INR (11/29/2024 7:06 PM EST) [facility] Prothrombin Time 12.6(H) 10.9 - 12.4 SEC [facility] INTERNATIONAL NORM RATIO 1.1 0.9 - 1.1 [facility] Comment:INTERNATIONAL NORMAL IZED RATIO (INR) [...] ORDERAB LES Final Result Performing Organization Address [facility] Co de Phone Number [facility] [address] [place] [phone] * (ABNORMAL) Comprehensive Metabolic Panel (11/29/2024 7:06 PM EST) [facility] Sodium 137 135 - 145 mmol/L [facility] Potassium 4.0 3.3 - 5.1 mmol/L [facility] Chloride 106 96 - 108 mmol/L [facility] Carbon Dioxide 23 22 - 29 mmol/L [facility] Anion Gap 12 12 - 20 [facility] Urea Nitrogen (BUN) 11 9 - 16 mg/dL [facility] Creatinine, Serum 1.02 0.5 - 1.4 mg/dL [facility] Creatinine Clr Calc Pharmacy 38.3 [facility] Comment:Provided height and weight: 147.32 cm,78.8 kg.eGFR (calculated from the MDRD study equation) and eCrCl(calculated from the Cockcroft-Gault equation) are based ondifferent parameters and may not yield comparable results.If eCrCl result is absurd, please check patient'sheight/weight. Estimated Glomerular Filt Rate 52 [facility] Comment:Chronic Kidney Disea se: Estimated GFR < 60 mL/min/1.87z9Swhqyi Kidney Disease: Estimated GFR < 15 mL/min/1.73m2 Glucose 109 60 - 115 mg/dL [facility] Calcium 8.9 8.4 - 10.2 mg/dL [facility] Bilirubin, Total 0.3 0.0 - 1.0 mg/dL [facility] Aspartate Amino Transferase 35(H) 5 - 31 U/L [facility] Alanine Aminotransferase 24 0 - 31 U/L [facility] Total Protein 8.0 6.5 - 8.0 g/dL [facility] Albumin Level 3.8 3.5 - 5.0 g/dL [facility] Alkaline Phosphatase 64 39 - 117 U/L [facility] 11/29/2024 7:06 PM EST 11/29/2024 7:10 PM EST us Generic External Data Provider LAB BLOOD ORDERAB LES Final Result [facility] [address] [place] [address] [phone] * FL Guidance in Treatment Room (11/01/2024 12:48 PM EST) Anatomical Region Laterality Modality X-Ray Angiograph y 11/01/2024 12:4 8 PM EST Narrative 11/02/2024 1:50 PM EST ? [facility] ?[address] ?[place], [place] [address] ? Fluoroscopy Report ? Signed ? Patient: Armendariz,Joan R ?MR#: [id number] ?? [id number] ? : 1945 ?Acct:[id number] ? Age/Sex: 79 / F ?ADM Date: 11/01/24 ? Loc: CF ? Attending Dr: Danis Diamond MD ? Ordering Physician: Nohemy Matthew APRN, CNP ?? Date of Service: 11/01/24 ?? Procedure(s): FL guidance in treatment room ?? Accession Number(s): [id number] ? cc: Jeni Garcia MD; Nohemy Matthew [...] DD/ 1248 ? TD/TT: 11/01/24 1259 ? Chief Operator Hydroformer: ? Procedure Note Willie Maurer - 11/02/[address] [address] Fluoroscopy Report Signed Patient: Joan Armendariz RMR#: [id number] : 3Acct:[id number] Age/Sex: 79 / FADM Date: 11/01/24 Loc: CF Attending Dr: Danis Diamond MD Ordering Physician: Nohemy Matthew APRN, CNP Date of Service: 11/01/24 Procedure(s): FL guidance in treatment room Accession Number(s): [id number] cc: eJni Garcia MD; Nohemy Matthew APRN, CNP EXAMINATION: [...] 11/02/24 1347 DD/ 1248 TD/TT: 11/01/24 1259 Chief Operator Hydroformer: [facility] External Provider IMG IR PROCEDURES Edited Result - Final * BI Mammogram Screening Tomosynthesis Bilateral (01/04/2024 12:30 PM EDT) Anatomical Region Laterality Modality Breast Bilateral Mammography 01/04/2024 12:3 0 PM EDT Narrative 01/25/2024 12:29 AM EDT ? [facility] ? [address] ?[place] [address] ? Mammography Report ? Signed ? Patient: Armendariz,Joan R ?MR#: [id number] ?? [id number] ? : 1945 ?Acct:[id number] ? Age/Sex: 78 / F ?ADM Date: 03/20/24 ? Loc: HO.MAMMO ? Attending Dr: Jeni Garcia MD ? Ordering Physician: Jeni Garcia MD ?Results: 1Ne ?? gative ? Date of Service: 01/04/24 ?Follow Up: 1 Year From Orig ?? inal Mammogram ? Procedure(s): MM tomosynthesis screening BI ?? Accession Number(s): [id number] ? cc: Jeni Garcia MD ? EXAMINATION: [...] 01/25/2424 ? DD/ 1230 ? TD/TT: ? Chief Operator Hydroformer: ? Procedure Note Donotuseinterpreter, Image - 01/25/2024 [facility] [address] [place] [address] Mammography Report Signed Patient: Joan Armendariz RMR#: [id number] : 3Acct:[id number] Age/Sex: 78 / FADM Date: 01/04/24 Loc: [facility] Attending Dr: Jeni Garcia MD Ordering Physician: Jeni Garcia MDResults: 1Ne gative Date of Service: 01/04/24Follow Up: 1 Year From Orig inal Mammogram Procedure(s): MM tomosynthesis screening BI Accession Number(s): [id number] cc: Jeni Garcia MD EXAMINATION: MM SCREENING [...] in OV> 01/25/24 0025 DD/ 1230 TD/TT: Chief Operator Hydroformer: Jeni Garcia MD IMG BI PROCEDURES Final Result * POCT A1C (08/19/2023 1:08 PM EDT) Hemoglobin A1C 6.0 4.0 - 6.0 % QC Media Lot # [id number] Lot# Expiration Date Blood 08/19/2023 1:08 PM EDT Result [facility] Jayshree Andrade DO POINT OF CARE TEST ENTER/FADUMO T ORDERABLES Final Result * Lipid Panel with Reflex to Direct LDL (02/15/2023 11:09 AM EDT) Cholesterol, Total 141 <200 mg/dL [facility] HDL Cholesterol 54 > OR = 50 mg/dL [employer] [place] [facility] Triglycerides 99 <150 mg/dL [employer] [place] [facility] LDL Cholesterol 69 mg/dL (calc) [facility] Comment: Reference range: <100 Desirable range <100 mg/dL for primary prevention; ?? <70 mg/dL for patients with CHD or diabetic patients with > or = 2 CHD risk factors. LDL-C is now calculated using the Bebeto-Casandra calculation, which is a validated novel method providing better accuracy than the Friedewald equation in the estimation of LDL-C. Bebeto SS et al. [place]. 2013;310(19): 5091-3203 (http://education.[employer].ITA Software/faq/AQN813) Chol/HDLC Ratio 2.6 <5.0 (calc) [facility] Non-HDL Cholesterol 87 <130 mg/dL (calc) [facility] Comment: For patients with diabetes plus 1 major ASCVD risk factor, treating to a non-HDL-C goal of <100 mg/dL (LDL-C of <70 mg/dL) is considered a therapeutic option. 02/15/2023 11:0 9 AM EDT 02/15/2023 11:10 AM EDT Narrative [facility] - 02/16/2023 2:24 AM EDT FASTING:NO FASTING: NO Jeni Garcia MD LAB BLOOD ORDERABLES Fin al Result [facility] [address], [place] [address] [facility] [address] [place] [phone] from Last 3 Months or Most Recently Relevant to Health Maintenance Insurance [facility] - [facility] Care Teams Heat Reader Relationship Specialty Start Date End Date Jeni Garcia MD [address] [place] [phone] PCP - General Family Medicine 12/16/15
--- OUTSIDE RECORDS SUMMARY | 2025-01-28 11:09 | XMS_ITS | Encounter Summary ---
Author Organization [employer] Address [address] [facility] [address] [place] [address] Care Team Providers Care Clinical Applications Manager Name Role Phone Jeni Garcia MD Primary Care Provider + Reason for Visit * Reason Comments ER Follow-up Encounter Details Date Type Department Care Team (Latest Contact Info) Description 01/22/2025 11:30 AM EDT Office Visit [facility] [address] [place], [place] [phone] Jeni Garcia MD [address] [place], [place] [phone] Epigastric pain (Primary Dx); Chronic ulcer of right thigh, unspecified ulcer stage (CMS/HCC); Chronic obstructive pulmonary disease, unspecified COPD type (CMS/HCC); Celiac artery stenosis (CMS/HCC); Degeneration of intervertebral disc of lumbar region with discogenic back pain; Degeneration of lumbar intervertebral disc; Meralgia paresthetica of right side Social History Tobacco Use Types Packs/Day Years [...] EDT Travel History Travel Start Travel End [place] 12/07/2024 01/04/2025 documented as of this encounter Last Filed [...] Mass Index 33.2 01/22/2025 11:49 AM EDT documented in this encounter Progress Notes * Jeni Garcia MD - 01/22/2025 11:30 AM EDT SUBJECTIVE: Joan Armendariz is a 79 y.o. year old female who presents for ED fu 01/14 and 01/20 . Denies recent illness, injury, or hospitalization. Patient here with her daughter for ED follow-up. Was in hospital ED on 01/14/2025 with persistent lower abdominal and groin pain. She was eventually discharged on doxycycline and symptoms continue so she went back on 01/20/2025 with persistent erythema and thigh pain consistent with right thigh cellulitis, ED note is not available in the chart,, reportedly they told her to continue antibiotics which she completed, denies fever, flank pain has mildly improved, denies dysuria or vaginal discharge. Her abdominal and pelvic CT scan did not show significant findings including normal bladder, kidneys (had bilateral calcifications seen on previous CT scan in 2022) ,no diverticulitis and some findings consistent with OA of the hip and lumbar spine. Otherwise she denies exertional dyspnea or chest pain although her activity is very limited. She saw cardiology and she was referred to cardiac rehab. Acute Concerns: Patient has decreased p.o. intake, mainly due to postprandial abdominal pain, no nausea no blood orblood per rectum or melena. Social History Social History Narrative Not on [...] paresthetica of right side Obesity, morbid (CMS/HCC) Sciatica associated with disorder of lumbar spine Vitamin D deficiency Dietary counseling Exercise counseling Abdominal pain Open broken tooth due to trauma without complication Renal artery stenosis (CMS/HCC) Superior mesenteric artery stenosis (CMS/HCC) Celiac artery stenosis (CMS/HCC) Leg pain, diffuse, right Fracture of vertebra due to osteoporosis with delayed healing Cellulitis Dental plaque Normal oral exam Stage 3a chronic kidney disease (CMS/HCC) Coronary artery disease involving [place] coronary artery of [place] heart WALLY (acute kidney injury) (CMS/HCC) Bandemia Chronic ulcer of right thigh (CMS/[facility]) No family history on file. Review of Systems Constitutional: Positive for appetite change and fatigue. Negative for chills and fever. HENT: Negative for congestion, ear pain, nosebleeds, rhinorrhea, sinus pressure, sore throat and trouble swallowing. Eyes: Negative for pain and discharge. Respiratory: Positive for shortness of breath. Negative for cough and chest tightness. Cardiovascular: Negative for chest pain, palpitations and leg swelling. Gastrointestinal: Positive for abdominal pain, constipation and nausea. Negative for blood in stooland diarrhea. Endocrine: Negative for polydipsia and polyuria. Genitourinary: Negative for dysuria, frequency, genital sores, pelvic pain and vaginal discharge. Musculoskeletal: Negative for back pain and neck pain. Skin: Negative for rash. Allergic/Immunologic: Negative for environmental allergies. Neurological: Negative for dizziness, seizures, weakness, light-headedness and headaches. Hematological: Negative for adenopathy. Psychiatric/Behavioral: Negative for agitation, behavioral problems, self-injury and suicidal ideas. OBJECTIVE: Vitals: 01/22/25 1324 BP: Pulse: Resp: Temp: SpO2: 100% Physical Exam HENT: Right Ear: Tympanic membrane and ear canal normal. Left Ear: Tympanic membrane and ear canal normal. Mouth/Throat: Mouth: Mucous membranes are moist. Pharynx: No oropharyngeal exudate or posterior oropharyngeal erythema. Eyes: Pupils: Pupils are equal, round, and reactive to light. Cardiovascular: Rate and Rhythm: Regular rhythm. Pulses: Normal pulses. Heart sounds: Normal heart sounds. No murmur heard. Pulmonary: Breath sounds: Normal breath sounds. Abdominal: General: Bowel sounds are normal. Palpations: Abdomen is soft. Tenderness: There is no abdominal tenderness. Musculoskeletal: General: Normal range of motion. Cervical back: Neck supple. Skin: General: Skin is warm. Findings: Wound (1cm oval clean ulcer on inner thigh right side) present. Neurological: General: No focal deficit present. Mental Status: She is alert and oriented to person, place, and time. Psychiatric: Mood and Affect: Mood normal. Behavior: Behavior normal. Problem List Items Addressed This Visit Abdominal pain - Primary Concern regarding symptomatic mesenteric ischemia, patient had an MRI consistent with vascular calcification and stenosis. Will call vascular surgery to have her seen sooner We discussed importance of go to ED if symptoms do not improve, optimize BP control. DC Pepcid and start Protonix (no interaction with Plavix) Take sucralfate as needed abdominal pain x 1 week Relevant Orders Stool - Gastrointestinal panel Helicobacter pylori Antigen, EIA, Stool Giardia Antigen, EIA, Stool CDiff Gene PCR Chronic ulcer of right thigh (CMS/HCC) May be due to friction with previous Greenberg catheter. She will have also dressing by RN today Continue daily dressing with topical antibiotics and follow-up with me in a month, reconsult as needed Chronic obstructive pulmonary disease (CMS/HCC) Doing well on Advair, Singulair and albuterol as needed Follow-up with hop strainer Celiac artery stenosis (CMS/HCC) Will call vascular surgery to schedule an earlier appointment, see above Degeneration of lumbar intervertebral disc Seen by pain clinic, epidural injections on hold for now due to recent episode of ACS Restart gabapentin 3 times per day, hold for fluid overload/leg edema/orthopnea Relevant Medications gabapentin (Neurontin) 100 MG capsule Meralgia paresthetica of right side Relevant Medications gabapentin (Neurontin) 100 MG capsule Follow Up: Current Outpatient Medications on File Prior to Visit Medication Sig Dispense Refill acetaminophen (Tylenol) 325 MG tablet Take by mouth every 6 (six) hours if needed for mild pain Advair HFA 115-21 MCG/ACT inhaler INHALE 2 PUFF EVERY 12 HOURS FOR 30 DAYS albuterol 1.25 MG/3ML nebulizer solution Take 3 mL (1.25 mg) by nebulization every 6 (six) hours ifneeded for wheezing. 75 mL 3 albuterol 108 (90 Base) MCG/ACT inhaler Inhale 2 puffs every 4 (four) hours if needed for wheezing or shortness of breath. 18 g 2 atorvastatin (Lipitor) 80 MG tablet Take 1 tablet (80 mg) by mouth Once per day. For 30 days, then decrease to 40 mg once daily 80 tablet 11 betamethasone valerate (Valisone) 0.1 % cream APPLY TOPICALLY TWICE A DAY 30 g 1 carvedilol (Coreg) 6.25 MG tablet TAKE 1 TABLET BY MOUTH WITH BREAKFAST AND EVENING MEAL 180 tablet1 cholecalciferol (Vitamin D-3) 125 MCG (5000 UT) capsule Take 1 capsule by mouth. Every Tuesday and clopidogrel (Plavix) 75 MG tablet Take 1 tablet (75 mg) by mouth Once per day. 30 tablet 11 fluticasone (Flonase) 50 MCG/ACT nasal spray Administer 1 spray into each nostril 2 times daily for14 days. Shake gently. Before first use, prime pump. After use, clean tip and replace cap. 16 mL 0 folic acid (Folvite) 1 MG tablet TAKE 1 TABLET BY MOUTH EVERY DAY levothyroxine (Synthroid, Levoxyl) 50 MCG tablet TAKE 1 TABLET BY MOUTH EVERY DAY IN THE MORNING 90tablet 1 loratadine (Claritin) 10 MG tablet TAKE 1 TABLET BY MOUTH EVERY DAY IN THE MORNING 90 tablet 1 methotrexate 2.5 MG tablet TAKE 8 TABLETS ONCE WEEKLY ON MONDAYS montelukast (Singulair) 10 MG tablet TAKE 1 TABLET BY MOUTH EVERY EVENING nitroglycerin (Nitrostat) 0.[address] 1 tablet (0.4 mg) under the tongue every 5 (five) minutes if needed for chest pain. 90 tablet 0 olmesartan-hydroCHLOROthiazide (BENIcar HCT) 40-12.5 MG tablet Take 0.5 tablets by mouth Once per day. Sp CAD/DC losartan pantoprazole (ProtoNix) 40 MG EC tablet Take 1 tablet by mouth 2 times daily. senna-docusate sodium (Senokot-S) 8.6-50 MG tablet Take 1 tablet by mouth Once per day. 30 tablet 11 Spiriva Respimat 1.25 MCG/ACT inhaler INHALE 2 PUFFS BY MOUTH EVERY DAY [DISCONTINUED] aspirin 81 MG EC tablet Take 1 tablet (81 mg) by mouth Once per day. 30 tablet 11 [DISCONTINUED] famotidine (Pepcid) 20 MG tablet Take 1 tablet (20 mg) by mouth if needed in the morning and at bedtime for heartburn. 30 tablet 11 [DISCONTINUED] gabapentin (Neurontin) 100 MG capsule TAKE 1 CAPSULE BY MOUTH THREE TIMES A DAY 90 capsule 0 No current facility-administered medications on file prior to visit. * Jeni Garcia MD - 01/22/2025 11:30 AM EDT I spoke with Dr. Santillan's office today and left clinical information regarding patient's worsening postprandial abdominal pain, they should be calling her back to inquire about symptoms and expedite appointment, otherwise they will contact this office. Will follow-up with the patient @ next month appt documented in this encounter Miscellaneous Notes * Assessment & Plan Note - Jeni Garcia MD - 01/23/2025 8:28 PM EDT Associated Problem(s): Degeneration of lumbar intervertebral disc Seen by pain clinic, epidural injections on hold for now due to recent episode of ACS Restart gabapentin 3 times per day, hold for fluid overload/leg edema/orthopnea * Assessment & Plan Note - Jeni Garcia MD - 01/23/2025 8:27 PM EDT Associated Problem(s): Chronic ulcer of right thigh (CMS/HCC) May be due to friction with previous Greenberg catheter. She will have also dressing by RN today Continue daily dressing with topical antibiotics and follow-up with me in a month, reconsult as needed * Assessment & Plan Note - Jeni Garcia MD - 01/23/2025 8:27 PM EDT Associated Problem(s): Celiac artery stenosis (CMS/HCC) Will call vascular surgery to schedule an earlier appointment, see above * Assessment & Plan Note - Jeni Garcia MD - 01/23/2025 8:26 PM EDT Associated Problem(s): Chronic obstructive pulmonary disease (CMS/HCC) Doing well on Advair, Singulair and albuterol as needed Follow-up with hop strainer * Assessment & Plan Note - Jeni Garcia MD - 01/23/2025 8:26 PM EDT Associated Problem(s): Abdominal pain Concern regarding symptomatic mesenteric ischemia, patient had an MRI consistent with vascular calcification and stenosis. Will call vascular surgery to have her seen sooner We discussed importance of go to ED if symptoms do not improve, optimize BP control. DC Pepcid and start Protonix (no interaction with Plavix) Take sucralfate as needed abdominal pain x 1 week documented in this encounter Plan of Treatment Upcoming Encounters Date Type Department Care Team (Late st Contact Info) Description 02/15/2025 11:15 AM EDT Office Visit [facility] [address] [place] [address] Jeni Garcia MD [address] [place], [place] [phone] 05/28/2025 10:00 AM EDT Office Visit [facility] [address] [place] [address] [place] Scheduled Orders Name Type Priority Associated Diagnoses Orde r Schedule Stool - Gastrointestinal panel Microbiology Routine Epigastric pain Expected: 01/22/2025 (Approximate), Expires: 01/22/2026 Helicobacter pylori??Antigen, EIA, Stool Lab Routine Epigastric pain Expected: 01/22/2025, Expires: 01/22/2026 Giardia Antigen, EIA, Stool Lab Routine Epigastric pain Expected: 01/22/2025, Expires: 01/22/2026 CDiff Gene PCR Lab Routine Epigastric pain Expected: 01/22/2025 (Approximate), Expires: 01/22/2026 documented as of this encounter Visit Diagnoses Diagnosis Epigastric pain- Primary Abdominal pain, epigastric Chronic ulcer of right thigh, unspecified ulcer stage (CMS/HCC) Chronic obstructive pulmonary disease, unspecified COPD type (CMS/HCC) Celiac artery stenosis (CMS/HCC) Stricture of artery Degeneration of intervertebral disc of lumbar region with discogenic back pain Meralgia paresthetica of right side documented in this encounter Additional Health Concerns Assessment Noted Time PHQ-9 Depression Total Score: 0 11/16/19 23 10:53 AM EST documented as of this encounter Care Teams Clinical Applications Manager Relationship Specialty Start Date End Date Jeni Garcia MD [address] [place] [phone] PCP - General Family Medicine 12/16/15 documented as of this encounter
== END 2025-01-28 10:30 | disposition home or self-care (01) ==
PROVIDERS: Visit Provider Internal Medicine
DX: M96.1 Postlaminectomy syndrome, not elsewhere classified (principal); M54.16 Radiculopathy, lumbar region; M47.816 Spondylosis without myelopathy or radiculopathy, lumbar region
CPT/HCPCS: 99214

== ENCOUNTER → 2025-01-28 09:57 | Outpatient (BNVA) | payer OTHER, SELFPAY | PROVIDERS: Visit Provider Internal Medicine | DX: M96.1 Postlaminectomy syndrome, not elsewhere classified (principal); M47.26 Other spondylosis with radiculopathy, lumbar region | CPT/HCPCS: 99212 ==

== ENCOUNTER 2025-02-06 | Outpatient (REF) | payer OTHER, SELFPAY ==
[2025-02-07 12:36] LABS: CDiff Gene PCR NEGATIVE (Negative)
--- OUTSIDE RECORDS SUMMARY | 2025-02-07 13:57 | XMS_ITS ---
Author Name Catracho Love NP Address [address] [place] [address] Phone [phone] [facility] Care Team Providers Care Financial Operations Clerk Name Role Phone Catracho Love Unavailable [phone] Jeni Garcia Unavailable Unavailable Unavailable [phone] Unavailable Unavailable [phone] Unavailable Unavailable Unavailable Reason for Referral Not [...] MORNING AND AT BEDTIME FOR HEARTBURN. 2025-01-03 2025-01-30 predniSONE 20 mg Tab TAKE 1 TABLET [...] x 10 days 2025-01-17 No Data Available Omeprazole 20 mg Cap delayed rel No Data Available 02-15-16 2025-01-30 Problem List Problem Status Onset Date Resolved Date Glaucoma Active 2022-11-05 N/A Cataracts, bilateral Active 2022-11-05 N/A Mixed hyperlipidemia due to type 2 diabetes mellitus A ctive 2023-11-25 N/A COPD (chronic obstructive pulmonary disease) Active 2025-01-17 N/A 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Immunocompromised Active 2022-11-05 N/A Atherosclerosis of renal art celine, Atherosclerosis of [place] arteries of extremities with intermittent claudication, bilateral legs Active 2022-11-05 N/A 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History of myocardial infarctionHypercoagulable state due to atrial fibrillation, unspecified type Active 2023-11-25 N/A Essential (primary) hypertension Active N/A GERD (gastroesophageal reflux disease) Active 08-02-03 N/A Hypothyroid Active 2025-01-17 N/A Class 1 obesity due to exces s calories with serious comorbidity and body mass index (BMI) of 33.0 to 33.9 in adult Active 2025-01-17 N/A Cellulitis Active 2025-01-17 N/A CKD (chronic kidney disease) stage 3, GFR 30-59 ml/min Active 2025-01-17 N/A 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 Active 2023-11-25 N/A Hospitalization within last 30 days Active 01-27 N/A Other problems related to [facility] and other health care Active 2025-01-17 N/A Encounters Encounters Type Facility Date of Service Diagnosis/Co mplaint New patient,40-59min; chronic exacerbation, 2 stable chronic or 1 acute illness add add modifier 95 for video (do not use for phone, instead use [id number]) [facility] Rheumatoid polyneurop w rheu matoid arthritis of unsp siteAtherosclerosis of renal arteryAthscl [place] arteries of [facility] intrmt nilesh, bi legsPersonal history of urinary calculi New patient,40-59min; chronic exacerbation, 2 stable chronic or 1 acute illness add add modifier 95 for video (do not use for phone, instead use 20571-77) [facility] New patient,40-59min; chronic exacerbation, 2 stable chronic or 1 acute illness add add modifier 95 for video (do not use for phone, instead use 76507-84) [facility] New patient,40-59min; chronic exacerbation, 2 stable chronic or 1 acute illness add add modifier 95 for video (do not use for phone, instead use 33653-28) [facility], ([place]) 11/05/2022 New patient,40-59min; chronic exacerbation, 2 stable chronic or 1 acute illness add add modifier 95 for video (do not use for phone, instead use 35465-17) [facility] New patient,40-59min; chronic exacerbation, 2 stable chronic or 1 acute illness add add modifier 95 for video (do not use for phone, instead use 47870-91) [facility] No Data Available [facility]2022 Primary osteoarthritis, left elbowPersonal history of urinary calculi No Data Available [facility]2022 No Data Available [facility]2022 No Data Available [facility]/2023 Shortness of breathCough, unspecified Estab. patient 20-29min; 1 stable chronic or 2 minor; add add modifier 95 for video, modifier 93 for phone [facility] 07[place]2023 Rheumatoid polyneurop w rheu matoid arthritis of unsp siteAtherosclerosis of renal arteryAthscl [place] arteries of extrm w intrmt nilesh, bi legsPersonal history of urinary calculiAcquired absence of other specified parts of digestive tractUnspecified asthma, uncomplicatedUnspecified glaucomaUnspecified cataractImmunodeficiency due to drugsOther halfway (current) drug therapyChronic obstructive pulmonary disease, unspecifiedObesity, unspecifiedBody mass index (BMI) 35.0-35.9, adultPrimary osteoarthritis, left elbowShortness of breathCough, unspecified Estab. patient 20-29min; 1 stable chronic or 2 minor; add add modifier 95 for video, modifier 93 for phone [facility]2023 Estab. patient 20-29min; 1 stable chronic or 2 minor; add add modifier 95 for video, modifier 93 for phone [facility] 07/[place]/2023 Estab. patient 20-29min; 1 stable chronic or 2 minor; add add modifier 95 for video, modifier 93 for phone [facility] 07/[place]/2023 Estab. patient 20-29min; 1 stable chronic or 2 minor; add add modifier 95 for video, modifier 93 for phone [facility] 07[place]/2023 Estab. patient 20-29min; 1 stable chronic or 2 minor; add add modifier 95 for video, modifier 93 for phone [facility] 07/[place]/2023 No Data Available [facility] 09[place]/2023 Chronic obstructive pulmonar y disease, unspecifiedRheumatoid polyneurop w rheumatoid arthritis of unsp siteAtherosclerosis of renal arteryAthscl [place] arteries of extrm w intrmt nilesh, bi legsImmunodeficiency due to drugsPersonal history of urinary calculiAcquired absence of other specified parts of digestive tractUnspecified asthma, uncomplicatedUnspecified glaucomaUnspecified cataractOther halfway (current) drug therapyObesity, unspecifiedBody mass index (bmi) 34.0-34.9, adultPrimary osteoarthritis, left elbowShortness of breathCough, unspecifiedCellulitis, unspecified No Data Available [facility] 09[place]/2023 No Data Available [facility]2023 No Data Available [facility] 09[place]/2023 RN, CN or CP time with patient by phone; use with 1111F, BP, A1c or other CPTII codes [facility], ([place]) 09/26/2023 Encounter for other specifie d aftercare RN, CN or CP time with patient by phone; use with 1111F, BP, A1c or other CPTII codes [facility], ([place] 09/26/2023 Estab. patient 30-39min; chronic exacerbation, 2 stable chronic or 1 acute illness add add modifier 95 for video, (do not use for phone, instead use 02501-83) [facility]2023 Rheumatoid polyneurop w rheu matoid arthritis of uns siteAtherosclerosis of renal arteryAthscl [place] arteries of extrm w intrmt nilesh, bi legsUnspecified glaucomaUnspecified cataractImmunodeficiency due to drugsOther minister of religion (current) drug therapyChronic obstructive pulmonary disease, unspecifiedObesity, unspecifiedPrimary osteoarthritis, left elbowOther problems related to medical facilities and other health careAthscl heart disease of [place] cor art w unstable ang pctrsPeripheral vascular disease, unspecifiedDermatitis, unspecifiedType 2 diabetes mellitus with other specified complicationMixed hyperlipidemia Estab. patient 30-39min; chronic exacerbation, 2 stable chronic or 1 acute illness add add modifier 95 for video, (do not use for phone, instead use 90424-06) [facility] Estab. patient 30-39min; chronic exacerbation, 2 stable chronic or 1 acute illness add add modifier 95 for video, (do not use for phone, instead use 21195-47) [facility] ([place]20[place] Estab. patient 30-39min; chronic exacerbation, 2 stable chronic or 1 acute illness add add modifier 95 for video, (do not use for phone, instead use 51686-41) [facility]20[place] Estab. patient 30-39min; chronic exacerbation, 2 stable chronic or 1 acute illness add add modifier 95 for video, (do not use for phone, instead use 54152-96) [facility]20[place] Estab. patient 30-39min; chronic exacerbation, 2 stable chronic or 1 acute illness add add modifier 95 for video, (do not use for phone, instead use 32071-13) [facility]20[place] Estab. patient 30-39min; chronic exacerbation, 2 stable chronic or 1 acute illness add add modifier 95 for video, (do not use for phone, instead use 44952-84) [facility]20[place] Estab. patient 30-39min; chronic exacerbation, 2 stable chronic or 1 acute illness add add modifier 95 for video, (do not use for phone, instead use 13166-83) [facility]20[place] Estab. patient 30-39min; chronic exacerbation, 2 stable chronic or 1 acute illness add add modifier 95 for video, (do not use for phone, instead use 87606-16) [facility]20[place] Estab. patient 30-39min; chronic exacerbation, 2 stable chronic or 1 acute illness add add modifier 95 for video, (do not use for phone, instead use 94767-31) [facility]20[place] Estab. patient 30-39min; chronic exacerbation, 2 stable chronic or 1 acute illness add add modifier 95 for video, (do not use for phone, instead use 02408-75) [facility] Estab. patient 10-29min; 1 minor problem; add add modifier 95 for video, modifier 93 for phone [facility] 01[place]17/2025 Type 2 diabetes mellitus wit h diabetic chronic kidney diseaseChronic kidney disease, stage 3 unspecifiedType 2 diabetes w diabetic peripheral angiopath w/o gangreneAthscl [place] arteries of extrm w intrmt nilesh, bi legsType 2 diabetes mellitus with other specified complicationMixed hyperlipidemiaRheumatoid polyneurop w rheumatoid arthritis of unsp siteAthscl heart disease of [place] cor art w unstable ang pctrsUnspecified atrial [...] 95 for video, modifier 93 for phone [facility]/17/20[place] Estab. patient 10-29min; 1 minor problem; add add modifier 95 for video, modifier 93 for phone [facility]/17/2025 Estab. patient 10-29min; 1 minor problem; add add modifier 95 for video, modifier 93 for phone [facility]/17/2025 Estab. patient 10-29min; 1 minor problem; add add modifier 95 for video, modifier 93 for phone [facility]/17/2025 Estab. patient 10-29min; 1 minor problem; add add modifier 95 for video, modifier 93 for phone [facility] 01/17/2025 Estab. patient 10-29min; 1 minor problem; add add modifier 95 for video, modifier 93 for phone [facility]/17/20[place] Estab. patient 10-29min; 1 minor problem; add add modifier 95 for video, modifier 93 for phone [facility] [place] Estab. patient 10-29min; 1 minor problem; add add modifier 95 for video, modifier 93 for phone [facility] [place] Estab. patient 10-29min; 1 minor problem; add add modifier 95 for video, modifier 93 for phone [facility] [place]/17/20[place] Estab. patient 10-29min; 1 minor problem; add add modifier 95 for video, modifier 93 for phone [facility] [place]/17/20[place] Estab. patient 10-29min; 1 minor problem; add add modifier 95 for video, modifier 93 for phone [facility] [place]25 Personal history of other me dical treatmentOther problems related to medical facilities and other health care Vital Signs Date of Collection Vitals 2022-11-05 [...] tive Time Current Smoking Status Former smoker 2025-01-16 4 Sex Female Gender identity Woman History of Procedures Procedures Service Procedure code Service date Servicing provider Phone# New patient,40-59min; chronic exacerbation, 2 stable chronic or 1 acute illness add add modifier 95 for video (do not use for phone, instead use 58297-90) 07626 2022-11-05 No Data Available No Data Availa [...] le No Data Available No Data Available 93611 2022-12-02 No Data Available No Data Available Medication List Documented (1159F) 1159F 2022-12-02 No Data Available No Data Lucretia ilable Pain Assessment - Pain Documented on a Pain Scale (1125F) 1125F 2022-12-02 No Data Available No Data Lucretia ilable No Data Available 2023-01-25 No Data Available No Data Available Estab. patient 20-29min; 1 stable chronic or 2 minor; add add modifier 95 for video, modifier 93 for phone [id number] 2023-07-25 No Data Available No Data Availa [...] le No Data Available No Data Available 21104 2023-09-30 No Data Available No Data Available [...] 1111F, BP, A1c or other CPTII codes 68758 2023-09-26 No Data Available No Data Avai lable Medications prescribed in hospital were reviewed and reconciled against what they were taking prior to admission during today's visit. (1111F) 1111F 2023-09-26 No Data Available No Data Availa ble Estab. patient 30-39min; chronic exacerbation, 2 stable chronic or 1 acute illness add add modifier 95 for video, (do not use for phone, instead use 43591-59) 55932 2023-11-25 No Data Available No Data Availa [...] 95 for video, modifier 93 for phone [id number] 2025-01-17 No Data Available No Data Availa [...] 1160F 2025-01-17 No Data Available No Data Ulcretia ilable Functional Status Assessed (1170F) 1170F 2025-01-17 No Data Available No Data Avail able SBP >= 140 3077F 2025-01-17 No Data Available No Data Available DBP <80 (3078F) 3078F 2025-01-17 No Data Available No Data Available BMI obtained (3008F) 3008F 2025-01-17 No Data Availab le No Data Available Estab. patient 10-29min; 1 minor problem; add add modifier 95 for video, modifier 93 for phone [id number] 2025-01-30 No Data Available No Data Availa ble Functional Status Functional Category Effective Dates Cognition [...] you feel unsteady on your feet? Yes 2 Do you worry about falling? Yes DME used with ambulation: [employer] 02-17-03 Social Supports - # of Inter actions with Friends/Family in a typical week: daughter 2025-01-17 Mental Status No Information Assessments Date of Service Assessments 2022-11-05 10:33:01 Rheumatoid polyneuro gregor with rheumatoid arthritis of unspecified siteAtherosclerosis of renal artery, Atherosclerosis of [place] arteries of extremities with intermittent claudication, bilateral legsHx of renal calculi 2022-12-02 12:17:08 Arthritis of left up per armHx of renal calculi 2023-01-25 09:24:51 Follow up plan for kimberly barrow symptoms: F/U PCPShortness of breath with cough 2023-07-25 08:46:34 <Fully document all Diagnosis>Rheumatoid polyneuropathy with rheumatoid arthritis of unspecified siteAtherosclerosis of renal artery, Atherosclerosis of [place] arteries of extremities with intermittent claudication, bilateral legsHx of renal calculiHx of cholecystectomyAsthmaGlaucomaCataracts, bilateralImmunodeficiency due to drugsChronic obstructive pulmonary disease, unspecifiedObesity (BMI 30.0-34.9)Arthritis of left upper armHx of renal calculiShortness of breath with cough 2023-09-30 07:29:04 Rheumatoid polyneuro gregor with rheumatoid arthritis of unspecified siteAtherosclerosis of renal artery, Atherosclerosis of [place] arteries of extremities with intermittent claudication, bilateral legsHx of renal calculiHx of cholecystectomyAsthmaGlaucomaCataracts, bilateralImmunodeficiency due to drugsChronic obstructive pulmonary disease, unspecifiedObesity (BMI 30.0-34.9)Arthritis of left upper armHx of renal calculiShortness of breath with coughCellulitis 2023-11-25 11:48:09 Other problems relat ed to medical facilities and other health careRheumatoid polyneuropathy with rheumatoid arthritis of unspecified siteAtherosclerosis of renal artery, Atherosclerosis of [place] arteries of extremities with intermittent claudication, bilateral legsGlaucomaCataracts, bilateralImmunodeficiency due to drugsChronic obstructive pulmonary disease, unspecifiedObesity (BMI 30.0-34.9)Arthritis of left upper armOther problems related to medical facilities and other health careAtherosclerosis of renal artery, Atherosclerosis of [place] arteries of extremities with intermittent claudication, bilateral legs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PVD (peripheral vascular disease)EczemaMixed hyperlipidemia due to type 2 diabetes mellitus 2025-01-17 08:37:23 Rheumatoid polyneuro gregor with rheumatoid arthritis of unspecified siteImmunocompromisedAtherosclerosis of renal artery, Atherosclerosis of [place] arteries of extremities with intermittent claudication, bilateral [...] kidney disease) stage 3, GFR 30-59 ml/min 2025-01-30 09:12:08 Hospitalization with in last 30 daysOther problems related to medical facilities and other health care Plan of Care Date of Service Plans 2022-11-05 10:33:01 Medication Review by prescribing provider or pharmacist documented (1160F)Medication List Documented (1159F)Functional Status Assessed (1170F)Advance Care Directive Advance care planning discussion documented in the medical record (1158F)BMI obtained (3008F)BMI obtained (3008F)Televideo new patient,40-59min; chronic exacerbation, 2 stable chronic or 1 acute illness add modifier 95Continue to see PCP. Follow-up with [facility] as [...] modifier 95)Continue to see PCP. Follow-up with [facility] as [...] foodActivity as toleratedRecently passed a kidney stone, 11/0311Ewxzqvst5/tableAdvair,Albuterol PRN,Montelukast.ophtho consult coing up in Januaryophtho consult [...] foodActivity as toleratedRecently passed a kidney stone, 11/0307Xtbzplsh2/tableAdvair,Albuterol PRN,Montelukast.ophtho consult coing up in Januaryophtho consult [...] <7% (3044F)Continue to see PCP. [facility] [...] joint pain increased Please remember to call PSYCHIATRIContinue to see PCP. Follow-up with [facility] as [...] smoking.keep skin hydrated triamcinolone PRN Eosinophil count [id number] 08/19/23not on any medication Advised to eat [...] take the proper dosage on time.01/17/2025 sees assault amphibious vehicle crewman yearly01/17/2025 no need for surgery yet , monitored yearlyRx: nitro, clopidogrel Choose heart-healthy foods, Aim for a healthy weight, Be physically activity, Manage stress, Quit smoking, and Get enough good-quality sleep.01/17/2025 patient had DC while on vacation on a cruise earlier this year sees money order clerk yearlyRx: gabapentin elevate and massage legsrecommend compression [...] techniques, and weight loss. 01/17/2025 patient sees national insurance officer every 3-6 monthsRx: carvedilolMonitor BP routinely, low [...] high dose Gabapentin, Baclofen, Fleet Enema, Morphine/Codeine) 2025-01-30 09:12:08 Estab. patient 10-29 min; 1 minor problem; add add modifier 95 for video, modifier 93 for phoneContinue to see PCP. Follow-up with Alicia as needed for any acute or disease education needs that may arise 09/05.[facility]. 01/19-01/20/25. Acute abdominal pain, gastritis. D/C home . No changes to medication; Patient feels wellWOUND CONTINGENCY PLANLast updated: 01/17/2025[facility] to call for the following symptoms: Fever/ HR >100??/ Increased wound size??/ Wound bleeding/ Wound drainagePlanned intervention: Ensure appropriate offloading of wound/ Encourage increased fluid intake/ MRSA Suspected - Bactrim DS BID x7d/ Take Tylenol for pain or feverABDOMINAL PAIN CONTINGENCY PLANLast updated: 01/30/2025[facility] to call for the following symptoms: Abdominal pain/ Constipation/ Diarrhea/ Nausea/ VomitingPlanned intervention: Advise to avoid eating for 24 hours for bowel rest/ Increase intake of water / Two prunes or a glass of prune or apple juice / Senna or Dulcolax two tabs po / Famotidine 40mg daily/ Phenergan 25mg PO q6h as needed Goals Date Goal 2025-01-17 At least 50% of time spent counseling pt, discussing diagnosis, treatment plan, compliance, and coordinating followup care. Continue taking medications as directed and keep all follow up appointments with established PCP and Specialist Health Concerns Date Concern 2025-01-30 Visit completed via audio by telephone. Patient/Guardian agreed to visit via telehealth.Time spent in visit: 2025-01-30 HIPPA call disclai radha for [place] and [place] members this call may be recorded for quality and training purposes ER Visit Follow-up:Spoke to: PatientWhen were you in the ER and where? Date and hospital: [facility] 01/19Why did you go to the ER? Abdominal pain, vomitingHow many days were you sick before going? 1-2 daysDid the member have a contingency plan? YDid the member go to the ER for the condition addressed by the contingency plan? NWere you then or are you now out of any medications? NWhat was the outcome of the ER Visit? Dx with viral gastritisDid they add or change any medications? NDo you have any interventions? NoAre you feeling better? worse? same? Are you still thinking about going to the ER? [facility] scheduled appt/call: Monthly callsPatient education provided: Call CBHow else can we help?Notes:
--- OUTSIDE RECORDS SUMMARY | 2025-02-07 13:57 | XMS_ITS | Encounter Summary ---
Author Organization [facility] Address [address] [facility] [address] [place] [address] Care Team Providers Care Structural Steel Worker Apprentice Name Role Phone Jeni Garcia MD Primary Care Provider + Encounter Details Date Type Department Care Team (Late st Contact Info) Description 02/06/2025 Orders Only [facility] [address], [place] [phone] Jeni Garcia MD [address], [place] [phone] Social History Tobacco Use Types Packs/Day Years [...] t he electric, gas, oil or water [employer] threatened to shut off services in your [...] Description 02/15/2025 11:15 AM EDT Office Visit [facility] [address] [place] [address] Jeni Garcia MD [address] [place] [address] 05/28/2025 10:00 AM EDT Office Visit [facility] [address] [place] [address] Keerthi Matute [address] [place], [place] [phone] documented as of this encounter Procedures Procedure Name Priority Date/Time Associated Diagnosis Comments CDIFF GENE PCR Routine 02/06/2025 4:30 PM EDT documented in this encounter Results * CDiff Gene PCR (02/06/2025 4:30 PM EDT) CDiff Gene PCR NEGATIVE Negative [facility] Comment:If C. difficile stro ngly suspected despite one negativetest, a second test may be sent vs. empiric treatment forC. difficile infection. 02/06/2025 4:30 PM EDT 02/07/2025 11:37 AM EDT us Jeni Garcia MD LAB BODY FLUIDS AND STOO LS ORDERABLES Final Result [facility] [address] [place] [address] [phone] documented in this encounter Visit Diagnoses Not on filedocumented in this encounter Additional Health Concerns Assessment Noted Time PHQ-9 Depression Total Score: 0 11/16/19 23 10:53 AM EST documented as of this encounter Care Teams Structural Steel Worker Apprentice Relationship Specialty Start Date End Date Jeni Garcia MD [address] [place] [id number] PCP - General Family Medicine 12/16/15 documented as of this encounter
--- OUTSIDE RECORDS SUMMARY | 2025-02-07 13:57 | XMS_ITS | Encounter Summary ---
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 10/05/2024 12:26 PM [facility] Clinical Information Heartburn,esophag eal reflux symptoms that persist despite appropriate therapy Finding:R/O oliver's 10/05/2024 12:26 PM [facility] Gross Description A. Esophagus, distal [...] on one slide. 10/05/2024 12:26 PM EST [facility] Disclaimer Unless otherwise specified, all tissue is 10% NB formalin fixed and paraffin embedded. 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
--- OUTSIDE RECORDS SUMMARY | 2025-02-07 13:57 | XMS_ITS | Encounter Summary ---
Author Organization [employer] Address 75 [facility] 7t [place] [address] Care Team Providers Care Technician Automated Equipment Name Role Phone Jeni Garcia MD Primary Care Provider + Reason for Visit * Reason Onset Date Comments Stool specimen 02/07/2025 Encounter Details Date Type Department Care Team ([facility] st Contact Info) Description 02/07/2025 Telephone [facility] 230 [place], [place] [phone] Jeni Garcia MD 230 [place], [place] [phone] Stool specimen Social History Tobacco Use Types Packs/Day Years [...] encounter Miscellaneous Notes * Telephone Encounter - Ej Hoff [place] - 02/07/2025 11:50 AM EDT T/C to pt to notify that [facility] [place] lab called to informed that due to overfilled container stool test needs to be re-collected. Notify pt go to lab to re do test. documented in this encounter Plan of Treatment Upcoming Encounters Date Type Department Care Team (Late st Contact Info) Description 02/15/2025 11:15 AM EDT Office Visit [facility] MED[facility]INE [address] [place] [address] Jeni Garcia MD [address] [place] [address] 05/28/2025 10:00 AM EDT Office Visit [facility] ADULT DENTAL 230 [place] [address] Keerthi Matute [address] [place] [phone] documented as of this encounter Visit Diagnoses Not on filedocumented in this encounter Additional Health Concerns Assessment Noted Time PHQ-9 Depression Total Score: 0 11/16/19 23 10:53 AM EST documented as of this encounter Care Teams Technician Automated Equipment Relationship Specialty Start Date End Date Jeni Garcia MD [address] [place] [phone] PCP - General Family Medicine 12/16/15 documented as of this encounter
--- OUTSIDE RECORDS SUMMARY | 2025-02-07 13:57 | XMS_ITS | Clinical Summary ---
Author Organization [facility] Address 175 [place] [address] Phone Care Team Providers Care Fitting Room Maintenance Mechanic Name Role Phone Jeni Garcia MD Primary Care Provider + [phone] Allergies Active Allergy Reactions Criticality Noted Date [...] osteoarthritis of left knee 01/02 Myocardial infarction ([facility] V24, [facility] V28) 01/02/2025 S/P angioplasty with stent 01/02/2025 Status post total right knee replacement 025 Cholelithiasis 12/03/2024 CKD (chronic kidney disease) , stage III ([facility] V24, [facility] V28) 11/15/2024 Severe obesity (BMI 35.0-39. 9) with comorbidity ([facility] V24, [facility] V28) 11/15/2024 Dental plaque 11/13/2024 Cellulitis 09/04/2024 Fracture of vertebra due to osteoporosis with delayed healing 07/06/2024 Overview (11/15/2024): Xray L-spine on 06/28: L4 fracture/sp T12 vertebral augmentation-previous fx- Leg pain, diffuse, right 06/28/2024 Celiac artery stenosis ([facility] V24) 06/13/2024 Renal artery stenosis ([facility] V24) 06/13/2024 Superior mesenteric artery stenosis ([facility] V24 ) 06/13/2024 Open broken tooth due [...] pain 06/28/2017 Hypothyroidism 06/28/2017 Rheumatoid arthritis, adult ([facility] V24, [facility] V28) 06/28/2017 Degeneration of lumbar intervertebral disc 12/10 Chronic obstructive pulmonar y disease ([facility] V24, [facility] V28) 12/11/2012 Angle-closure glaucoma 09/29/2012 GERD (gastroesophageal reflux disease) 2 Eosinophil count raised 05/15/2012 Hypertension 04/12/2012 Gait instability 04/12/2012 Neck pain 04/12/2012 Encounters Date Type Department Care Team Description 01/02/2025 2:30 PM EDT Office Visit Orthopedic Surgery - [address] [address] Lazaro Saleh MD Post-traumatic osteoarthritis of left knee (Primary Dx); Status post total right knee replacement; Myocardial infarction, unspecified CT type, unspecified artery (CMS/HCC V24, CMS/HCC V28); S/P angioplasty with stent; Gait instability 11/26/2024 3:53 PM EST - 11/26/2024 11:59 PM EST Hospital Encounter [facility] Ultrasound [address] [place] [phone] Localized swelling of right lower leg Discharge Disposition: Home or Self Care 11/26/2024 1:30 PM EST Office Visit Orthopedic Surgery [facility] 250 175 [facility] 250 [place] [phone] Kp Lyn DPM Localized swelling of right [...] left lower extremity; Bilateral femoral artery stenosis ([facility] V24); Diabetic mononeuropathy simplex ([facility]) [E11.41]; Type II diabetes mellitus with peripheral circulatory disorder ([facility]) [E11.51] 11/15/2024 11:00 AM EST Office Visit Orthopedic Surgery [facility] 250 175 [facility] 250 [place] [phone] Eloisa Torres NP Post-traumatic osteoarthritis of left knee (Primary Dx); History of total right knee replacement (TKR); Personal history of DVT (deep vein thrombosis) 11/14/2024 1:40 PM EST Office Visit Gastroenterology - 299 [facility] 299 [facility] 419 [place] [address] Jing Fields NP Gastroesophageal reflux disease, unspecified whether esophagitis present (Primary Dx) 11/14/2024 Telephone Gastroenterology - [address] [place] [phone] Jessy Aguila MA from Last 3 Months Surgical History [...] Care Team (Late st Contact Info) Description 04/10/2025 9:00 AM EDT Office Visit Orthopedic Surgery - [place] [address] [phone] Lazaro Saleh MD [address] [address] Health Maintenance Due Date Last Done Comments [...] Procedure Name Priority Date/Time Associated Diagnosis Comments VT ARTHROCENTESIS/ASP IRATION/INJECTION MAJOR JOINT/BURSA W/O U/S GUIDANCE Routine 01/02/2025 2:30 PM EDT Post-traumatic osteoarthritis of left knee VAS US DUPLEX LOWER EXT VENOUS RIGHT Routine 11/26/2024 4:18 PM EST Localized swelling of right lower leg XR KNEE 4+ VIEWS LEFT Routine 11/15/2024 10:43 AM EST Pain from Last 3 Months Results * VT ARTHROCENTESIS/ASPIRATION/INJECTION MAJOR JOINT/BURSA W/O U/S GUIDANCE (01/02/2025 [...] Signed Date: 11/26/2024 16:32 ET Workstation ID: [id number] Transcribed By: Self Edit Transcribed Date: 11/26/2024 [...] Signed Date: 11/26/2024 16:32 ET Workstation ID: [id number] Transcribed By: Self Edit Transcribed Date: 11/26/2024 16:32 ET us Kp Lyn DPM CV VASCULAR PROCEDURES Fi nal Result * XR Knee 4+ Views Left (11/15/2024 10:43 AM EST) Anatomical Region Laterality Modality Lower Extremities, Knee Left Computed Radiography Narrative 11/15/2024 11:28 AM EST Date of Visit: 11/15/2024 Reason for visit: ?? Left knee pain Views: AP, Lateral, Silvestre, Tangerine left knee Findings: On AP view there is narrowing through the medial greater than lateral compartment of the left knee with subchondral sclerosis and small marginal osteophytes. ??Note of stable appearing right total knee replacement. ??Moderate degenerative changes seen through the patellofemoral compartment on sunrise view. ??No acute findings. Impression: Moderate osteoarthritis left knee. Eloisa Torres ICT ACCOUNT MANAGER IMG XR PROCEDURES Final Result from Last 3 Months Insurance [place]ID - [place] Member Subscriber Plan / Payer (Ef fective 2024-Present) Name:Armendariz Joan Relation to Subscriber:Self Name:Armendariz Joan Payer ID:[id number] Group ID:Not on file Type:Not on file Address: [facility] ATTN:CLAIMS [address] [place] [id number] [employer] MEDICARE Advance Directives Documents on File Type Date Recorded Patient Scheduling Administrator Expl anation Health Care Decision (hx) 03/27/2019 [...] (hx) 03/27/2019 AD CEJA DIRECTIVE Care Teams Fitting Room Maintenance Mechanic Relationship Specialty Start Date End Date Jeni Garcia MD [address] [place] [phone] PCP - General 05/19/21
--- OUTSIDE RECORDS SUMMARY | 2025-02-07 13:57 | XMS_ITS | Encounter Summary ---
Author Organization [facility] Address 75 [facility] 7t [place] [address] Care Team Providers Care License Issuer Name Role Phone Jeni Garcia MD Primary Care Provider + Reason for Referral * Consultation (Urgent) - Closed Specialty Diagnoses / Procedures Referred By Contac t Referred To Contact Vascular Surgery Diagnoses Renal artery stenosis (CMS/HCC) Superior mesenteric artery stenosis (CMS/HCC) Celiac artery stenosis (CMS/HCC) Jeni Garcia MD 230 [place] [address] Phone: tel: fax: [facility] [address] [facility] [address] [place] [address] Phone: tel: fax: Referral ID Status Reason Start Date Expiration Date V isits Requested Visits Authorized [id number] Closed Specialty Services Required 06/13/2024 06/13/2025 1 1 Encounter Details Date Type Department Care Team (Late st Contact Info) Description 06/13/2024 Orders Only [facility] MEDICINE 230 [place], [place] [phone] Jeni Garcia MD 230 [place], [place] [phone] Renal artery stenosis (CMS/HCC); Superior mesenteric artery [...] Upcoming Encounters Date Type Department Care Team ([facility] st Contact Info) Description 02/15/2025 11:15 AM EDT Office Visit [facility] MEDICINE [address] [place] [address] Jeni Garcia MD 230 [place] [id number] 05/28/2025 10:00 AM EDT Office Visit [facility] ADULT DENTAL 230 [place] [address] Keerthi Matute 91 [place] [address] Scheduled Referrals Name Type Priority Associated Diagnoses [...] EDT Narrative 06/28/2024 4:28 PM EDT ? [facility] ?[address] ?[place] [address] ?XRay Report ? Signed ? Patient: Armendariz,Joan R ?MR#: [id number] ?? [id number] ? : 1945 ?Acct:[id number] ? Age/Sex: 79 / F ?ADM Date: 06/28/ ? Loc: HO.ED ? Attending Dr: ? Ordering Physician: Geovanna Austin ?? Date of Service: 06/28/24 ?? Procedure(s): XR lumbar spine 2-3V ?? Accession Number(s): [id number] ? cc: Jeni Garcia MD; Geovanna Austin [...] DD/ 1600 ? TD/TT: 06/28/24 1615 ? Sheep Sticker: ? Procedure Note Willie Maurer - 06/28/[address] [address] XRay Report Signed Patient: Joan Armendariz RMR#: [id number] : 3Acct:[id number] Age/Sex: 79 / FADM Date: 06/28/24 Loc: HO.ED Attending Dr: Ordering Physician: Geovanna Austin Date of Service: 06/28/24 Procedure(s): XR lumbar spine 2-3V Accession Number(s): [id number] cc: Jeni Garcia MD; Geovanna Austin EXAMINATION: [...] 06/28/24 1625 DD/ 1600 TD/TT: 06/28/24 1615 Sheep Sticker: [facility] External Provider IMG XR PROCEDURES Final Result * XR Chest 1 View (06/28/2024 12:52 PM EDT) Anatomical Region Laterality Modality Chest Radiographic Tamiko ging 06/28/2024 12:5 2 PM EDT Narrative 06/28/2024 3:02 PM EDT ? [facility] ?[address] ?[place] [address] ?XRay Report ? Signed ? Patient: Armendariz,Joan R ?MR#: [id number] ?? [id number] ? : 1945 ?Acct:[id number] ? Age/Sex: 79 / F ?ADM Date: 06/28/24 ? Loc: HO.ED ? Attending Dr: ? Ordering Physician: Geovanna Austin ?? Date of Service: 06/28/24 ?? Procedure(s): XR chest 1V ?? Accession Number(s): [id number] ? cc: Jeni Garcia MD; Geovanna Austin [...] ? DD/ 1252 ? TD/TT: 06/28/241258 ? Sheep Sticker: RK ? Procedure Note Willie Maurer - 06/28/[address] [address] XRay Report Signed Patient: Joan Armendariz RMR#: [id number] : 3Acct:[id number] Age/Sex: 79 / FADM Date: 06/28/24 Loc: HO.ED Attending Dr: Ordering Physician: Geovanna Austin Date of Service: 06/28/24 Procedure(s): XR chest 1V Accession Number(s): [id number] cc: Jeni Garcia MD; Renschler,Geovanna PA EXAMINATION: [...] 06/28/24 1459 DD/ 1252 TD/TT: 06/28/24 1259 Sheep Sticker: [facility] External Provider IMG XR PROCEDURES [...] documented as of this encounter Care Teams License Issuer Relationship Specialty Start Date End Date Jeni Garcia MD [address] [place] [phone] PCP - General Family Medicine 12/16/15 documented as of this encounter
--- OUTSIDE RECORDS SUMMARY | 2025-02-07 13:58 | XMS_ITS | Encounter Summary ---
Author Organization [facility] Address 75 [facility] 7t [place] [address] Care Team Providers Care C Software Engineer Name Role Phone Jeni Garcia MD Primary Care Provider + Reason for Visit * Reason Onset Date Comments C Pap 02/22/2023 Encounter Details Date Type Department Care Team ([facility] st Contact Info) Description 02/22/2023 Telephone [facility] MEDICINE 230 [place], [place] [phone] Jeni Garcia MD 230 [place], [place] [phone] C Pap Social History Tobacco Use Types [...] If any questions please contact pt at [phone] (tanzanian speaking) * Telephone Encounter - Temi Bojorquez - 02/22/2023 2:44 PM EDT Tc from Pt requesting a script for Cpap Machine talk on appt on 02/15 with provider. Pt give fax number to send script to [facility] # [phone]. PCP Dr. Garcia documented in this encounter Plan of Treatment Upcoming Encounters Date Type Department Care Team (Late st Contact Info) Description 02/15/2025 11:15 AM EDT Office Visit [facility] MEDICINE [address] [place] [phone] Jeni Garcia MD 230 [place] [address] 05/28/2025 10:00 AM EDT Office Visit [facility] ADULT DENTAL 230 [place] [address] Keerthi Matute [address] [place] [address] [phone] documented as of this encounter Visit Diagnoses Not on filedocumented in this encounter Additional Health Concerns Assessment Noted Time PHQ-9 Depression Total Score: 0 11/16/19 10:53 AM EST documented as of this encounter Care Teams C Software Engineer Relationship Specialty Start Date End Date Jeni Garcia MD [address] [place] [phone] PCP - General Family Medicine 12/16/15 documented as of this encounter
--- OUTSIDE RECORDS SUMMARY | 2025-02-07 13:58 | XMS_ITS | Encounter Summary ---
Author Organization [facility] Address [address] [place] [address] 7t [place] [address] Care Team Providers Care Rewinder Operator Name Role Phone Jeni Garcia MD Primary Care Provider + Encounter Details Date Type Department Care Team (Late st Contact Info) Description 09/27/2022 [facility] Information Management 230 [place], [place] [phone] Jeni Garcia MD 230 [place], [place] [phone] Social History Tobacco Use Types Packs/Day Years [...] Description 02/15/2025 11:15 AM EDT Office Visit [facility] MED[facility]INE 230 [place], [place] [phone] Jeni Garcia MD 230 [place], [place] [phone] 05/28/2025 10:00 AM EDT Office Visit [facility] ADULT DENTAL 230 [place], [place] [phone] Keerthi Matute [address] [place] [address] [phone] documented as of this encounter Visit Diagnoses Not on filedocumented in this encounter Care Teams Rewinder Operator Relationship Specialty Start Date End Date Jeni Garcia MD [address] [place] [phone] PCP - General Family Medicine 12/16/15 documented as of this encounter
--- OUTSIDE RECORDS SUMMARY | 2025-02-07 13:58 | XMS_ITS | Clinical Summary ---
Author Organization [facility] Address [address] [facility] 20 0 [place] [address] Phone Care Team Providers Care Machine I Cutter Name Role Phone Jeni Garcia MD Primary Care Provider + [phone] Allergies Active Allergy Reactions Criticality Noted Date [...] 12/17/2024 Refill [facility] [address] [place] [phone] Luke Quinn MD from Last 3 [...] Office Visit [facility] [address] [phone] Luke Quinn MD [address] [phone] Health Maintenance Due Date Last Done Comments [...] Quinn MD LAB BLOOD ORDERABLES [facility] [address] [place] [phone] from Last 3 Months or Most Recently Relevant to Health Maintenance Insurance [employer] [place] [employer] [place] Care Teams Machine I Cutter Relationship Specialty Start Date End Date Jeni Garcia MD [address] [place] [address] [phone] PCP - General Internal Medicine 08/06/21
--- OUTSIDE RECORDS SUMMARY | 2025-02-07 13:58 | XMS_ITS | Encounter Summary ---
Author Organization [employer] Address 75 [facility] 7t [place] [address] Care Team Providers Care Nursing Home Physician Name Role Phone Jeni Garcia MD Primary Care Provider + Reason for Visit * Reason Onset Date Comments Call Back Request 01/02/2025 Encounter Details Date Type Department Care Team ([facility] Contact Info) Description 01/02/2025 Telephone [facility] MEDICINE 230 [place], [place] [phone] Jeni Garcia MD 230 [place], [place] [phone] Call Back Request Social History Tobacco Use [...] visit because they dohave another appt prior. Signal Operator Linguist did inform them on 15 min mao period but forwarding message as anFYI. Please contact Daughter at [phone]. documented in this encounter Plan of Treatment Upcoming Encounters Date Type Department Care Team (Late st Contact Info) Description 02/15/2025 11:15 AM EDT Office Visit [facility] MEDICINE 230 [place] [address] Jeni Garcia MD 230 [place] [address] 05/28/2025 10:00 AM EDT Office Visit [facility] ADULT DENTAL 230 [place] [address] Keerthi Matute [address] [place] [phone] documented as of this encounter Visit Diagnoses Not on filedocumented in this encounter Additional Health Concerns Assessment Noted Time PHQ-9 Depression Total Score: 0 11/16/19 23 10:53 AM EST documented as of this encounter Care Teams Nursing Home Physician Relationship Specialty Start Date End Date Jeni Garcia MD [address] [place] [phone] PCP - General Family Medicine 12/16/15 documented as of this encounter
--- OUTSIDE RECORDS SUMMARY | 2025-02-07 13:58 | XMS_ITS | Encounter Summary ---
Author Organization [facility] Address 75 [facility] 7t [place] [address] Care Team Providers Care Book Or Script Editor Name Role Phone Jeni Garcia MD Primary Care Provider + Encounter Details Date Type Department Care Team ([facility] Contact Info) Description 04/04/2023 Orders Only [facility] MEDICINE [address] [place] [address] [phone] Jeni Garcia MD [address] [place] [address] [phone] Social History Tobacco Use Types Packs/Day Years [...] Upcoming Encounters Date Type Department Care Team ([facility] Contact Info) Description 02/15/2025 11:15 AM EDT Office Visit [facility] MEDICINE [address] [place] [address] [phone] Jeni Garcia MD 230 [place], [place] [phone] 05/28/2025 10:00 AM EDT Office Visit [facility] ADULT DENTAL 230 [place], [place] [phone] Keerthi Matute [address] [place] [address] [phone] documented as of this encounter Visit Diagnoses Not on filedocumented in this encounter Additional Health Concerns Assessment Noted Time PHQ-9 Depression Total Score: 0 11/16/19 23 10:53 AM EST documented as of this encounter Care Teams Book Or Script Editor Relationship Specialty Start Date End Date Jeni Garcia MD 230 [place] [address] PCP - General Family Medicine 12/16/15 documented as of this encounter
--- OUTSIDE RECORDS SUMMARY | 2025-02-07 13:58 | XMS_ITS | Clinical Summary ---
Author Organization [employer] Address [address] [facility] 7[address] [place] [address] Care Team Providers Care Manual Writer Name Role Phone eJni Garcia MD Primary Care Provider + Allergies [...] for chest pain. 90 tablet 2025 Active gabapentin (Neurontin) 100 MG capsuleIndication s:Degeneration of lumbar intervertebral disc,Meralgia paresthetica of right side TAKE 1 CAPSULE BY MOUTH THREE TIMES A DAY 90 capsule 11 025 Active gabapentin (Neurontin) 100 MG capsuleIndication s:Degeneration [...] for 5 days. 5 tablet 025 2024 sucralfate (Carafate) 1 g tablet Take 1 tablet (1 g) by mouth before breakfast, before lunch, before evening meal, and at bedtime for 7 days. 28 tablet 2024 Active Problems Problem Noted Date Diagnosed [...] and cardiology Coronary artery disease invo lving table mountain coronary artery of table mountain heart 01/03/2025 Assessment & Plan (01/03/2025 1:46 [...] exercise, life style modifications, diet, referral to technology sales specialist. 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 FU on Tuesday with [employer]. Will call tomorrow for health status check. [...] Encounters Date Type Department Care Team Description 02/07/2025 Telephone [facility] [address] [place] [address] Jeni Garcia MD Stool specimen 02/06/2025 Orders Only [facility] [place] [address] Jeni Garcia MD 01/22/2025 11:30 AM EDT Office Visit [facility] [address] [facility] [place] [address] Jeni Garcia MD Epigastric pain (Primary Dx); Chronic ulcer of right thigh, unspecified ulcer stage (CMS/HCC); Chronic obstructive pulmonary disease, unspecified COPD type (CMS/HCC); Celiac artery stenosis (CMS/HCC); Degeneration of intervertebral disc of lumbar region with discogenic back pain; Degeneration of lumbar intervertebral disc; Meralgia paresthetica of right side 01/22/2025 Travel 01/10/2025 Telephone [facility] [address] [place] [address] Jeni Garcia MD Results 01/10/2025 Telephone [facility] [address] [place] [address] Jeni Garcia MD Nurse Triage 01/07/2025 Orders Only [facility] [address] [place] [address] Rose De La Rosa MD Urinary tract infection without hematuria, site unspecified (Primary Dx) 01/04/2025 9:20 AM EDT Office Visit [facility] [address] [place] [address] Rose De La Rosa MD Bandemia (Primary Dx); Leukocytosis, unspecified type 01/04/2025 Orders Only [facility] [address] [place] [address] Rose De La Rosa MD 01/04/2025 Telephone [facility] [address] [place] [address] Jeni Garcia MD Results 01/04/2025 Travel 01/03/2025 10:45 AM EDT Office Visit [facility] [address] [place] [phone] Jeni Garcia MD WALLY (acute kidney injury) ([facility]) (Primary Dx); Coronary artery disease involving table mountain coronary artery of table mountain heart, unspecified whether angina present; Chronic obstructive pulmonary disease, unspecified COPD type ([facility]); Primary hypertension; Bandemia 01/03/2025 Telephone [facility] [address] [place] [address] Allyson Todd, ROSITA Care Coordination 01/03/2025 Telephone [facility] [address] [place] [address] Jeni Garcia MD Care Coordination; Results 01/03/2025 Travel 01/02/2025 Telephone [facility] [address] [place] [address] Jeni Garcia MD Chart prep 01/02/[address] [place] [address] Jeni Garcia MD Call Back Request 12/31/2024 Patient Outreach [address] [address] Jeni Garcia MD reminder (HDF schedule reminder) 12/24/[address] [address] Jeni Garcia MD Hospital Follow-up 12/18/[address] [address] Jeni Garcia MD Primary hypertension 12/18/[address] [address] Rose De La Rosa MD Primary hypertension 12/08/2024 Telephone [facility] [address] [place] [address] Jeni Garcia MD 12/07/2024 12:15 PM EST Office Visit [address] [address] Jeni Garcia MD Influenza A (Primary Dx); Bronchitis; Pulmonary emphysema, unspecified emphysema type (CMS/HCC); Degeneration of intervertebral disc of lumbar region with discogenic back pain 12/07/2024 Travel 12/05/[address] [address] Jeni Garcia MD Chart prep 12/04/[address] [address] Jeni Garcia MD Status Check ED visit 12/04/[address] [address] Jeni Garcia MD ER Follow-up 11/29/2024 Orders Only GENERIC EXTERNAL DATA DEPARTMENT Provider, Generic External Data 11/28/[address] [address] Jeni Garcia MD Nurse Triage 11/13/2024 1:00 PM EST Office Visit [facility] [address] [place] [address], [place] [address] [facility] Bah Dental calculus (Primary Dx); Dental plaque; Normal oral exam 11/13/2024 Telephone [facility] [address] [place] [address] Jeni Garcia MD DCF Form (I called [...] to call the forms department at ext [phone].) from Last 3 Months Immunizations Name Administration [...] Description 02/15/2025 11:15 AM EDT Office Visit [facility] [address] [place] [address] Jeni Garcia MD [address] [place] [address] 05/28/2025 10:00 AM EDT Office Visit [facility] [address] [place] [address] Keerthi Matute [address] [place] [address] [phone] Health Maintenance Due Date Last Done Comments [...] GENE PCR Routine 02/06/2025 4:30 PM EDT CULTURE, URINE, ROUTINE Routine 01/04/2025 10:20 AM [...] 12:38 PM EDT Coronary artery disease involving table mountain coronary artery of table mountain heart, unspecified whether angina present BASIC METABOLIC [...] :00 PM EST Dental calculus Dental plaque INTRAORAL - COMPLETE SERIES OF RADIOGRAPHIC IMAGES Routine 05/24/2024 3:00 PM EDT BI MAMMOGRAM SCREENING TOMOSYNTHESIS BILATERAL Routine 01/04/2024 12:30 PM EDT POCT GLYCATED HEMOGLOBIN, TOTAL Routine 08/19/2023 1:08 PM EDT Prediabetes LIPID PANEL WITH REFLEX TO DIRECT LDL Routine 02/15/2023 11:09 AM EDT Primary hypertension from Last 3 Months or Most Recently Relevant to Health Maintenance Results * CDiff Gene PCR (02/06/2025 4:30 PM EDT) CDiff Gene PCR NEGATIVE Negative [facility] Comment:If C. difficile stro ngly suspected despite one negativetest, a second test may be sent vs. empiric treatment forC. difficile infection. 02/06/2025 4:30 PM EDT 02/07/2025 11:37 AM EDT us Jeni Garcia MD LAB BODY FLUIDS AND STOO LS ORDERABLES Final Result Performing Organization Address City/[facility]/ZIP Co de Phone Number [facility] [address] [place] [address] [phone] * Culture, Urine, Routine (01/04/2025 10:20 AM EDT) Urine Urine specimen obtained by clean catch procedure / Unknown 01/04/2025 10:20 AM EDT 01/04/2025 6:49 PM EDT Comment:UACC Narrative [facility] - 01/07/2025 8:14 AM EDT Enterococcus faecalis Quant > 100,000 cfu/mL Enterococcus faecalis: Ampicillin <=2(S) Enterococcus faecalis: Levofloxacin 0.5(S) Enterococcus faecalis: Nitrofurantoin <=16(S) Enterococcus faecalis: Tetracycline >=16(R) Enterococcus faecalis: Vancomycin 1(S) Specimen Source: Urine clean catch us Rose Elizalde MD LAB MICROBIOLOGY - GE NERAL ORDERABLES Final Result Performing Organization Address City/[facility]/ZIP Co de Phone Number [facility] [address] [place] [phone] * (ABNORMAL) CBC auto differential (01/04/2025 10:17 AM EDT) Only the most recent of3 resultswithin the time period is included. White Blood Count 14.8(H) 4.8 - 10.8 X10*3/uL [facility] Red Blood Count 4.08(L) 4.20 - 5.50 X10*6/uL [facility] Hemoglobin 11.0(L) 12.0 - 16.0 g/dl [facility] Hematocrit 33.3(L) 37.0 - 47.0 % [facility] Mean Corpuscular Volume 81.6 80.0 - 98.0 fL [facility] Mean Corpuscular Hemoglobin 27.0 27.0 - 33.0 pg [facility] Mean Corpuscular HGB Conc 33.0 31.0 - 35.0 g/dl [facility] Red Cell Distribution Width 16.6(H) 11.0 - 16.0 % [facility] Platelet Count 265 160 - 400 X10*3/uL [facility] Mean Platelet Volume 12.1 9.4 - 12.3 fL [facility] Neutrophils Percent Auto 86.6(H) 45 - 73 % [facility] Imm Gran Pct Auto 0.6(H) 0.0 - 0.4 % [facility] Lymphocytes Percent Auto 7.9(L) 20 - 40 % [facility] Monocytes Percent Auto 4.8 2 - 11 % [facility] Eosinophils Percent Auto 0.0 0 - 4 % [facility] Basophils Percent Auto 0.1 0 - 2 % [facility] NRBC Pct Auto 0.0 0.0 - 0.2 /100WBC [facility] Neutrophils Absolute Auto 12.8(H) 2.0 - 8.3 x10*3/uL [facility] Imm Gran Abs Auto 0.09(H) 0.00 - 0.03 X10*3/uL [facility] Lymphocytes Absolute Auto 1.2 1.2 - 4.9 X10*3/uL [facility] Monocytes Absolute Auto 0.7 0.1 - 1.2 X10*3/uL [facility] Eosinophils Absolute Auto 0.0 0.0 - 0.4 X10*3/uL [facility] Basophils Absolute Auto 0.0 0.0 - 0.2 X10*3/uL [facility] NRBC Abs Auto 0.000 0.0 - 0.012 X10*3/uL [facility] Blood Venous blood specimen / Unknown 01/04/2025 10:17 AM EDT 01/04/2025 11:07 AM EDT Jeni Garcia MD LAB BLOOD ORDERABLES Fin al Result Performing Organization Address [facility] Co de Phone Number [facility] [address] [place] [phone] * (ABNORMAL) Sed Rate by Modified Rekha (01/04/2025 10:00 AM EDT) Pathologist [facility] Erythrocyte Sedimentation Rate 34(H) 0 - 20 MM/HR [facility] Comment:Patients with polycy themia and many hemoglobin abnormalitiesmay have depressed sed rates whereas patients with anemiamay have elevated sed rates. Blood Venous blood specimen / Unknown 01/04/2025 10:00 AM EDT 01/04/2025 11:07 AM EDT Jeni Garcia MD LAB BLOOD ORDERABLES Fin al Result Performing Organization Address City/[facility]/ZIP Co de Phone Number [facility] [address] [place] [phone] * POCT Rapid Influenza B STARR ID NOW (01/04/2025 9:54 AM EDT) Pathologist [facility] Influenza B Negative Negative, Indeterminate [facility] QC Media Lot # [id number] [facility] Lot# Expiration Date [id number] [facility] Swab 01/04/2025 9:54 AM EDT Rose Elizalde MD POINT OF CARE TEST EN TER/EDIT ORDERABLES Final Result Performing Organization Address City/[facility]/ZIP Co de Phone Number [facility] [address] [place] [phone] * POCT Rapid Influenza A STARR ID NOW (01/04/2025 9:54 AM EDT) Influenza A Negative Negative, Indeterminate [facility] QC Media Lot # [id number] [facility] Lot# Expiration Date ,026 [facility] Swab 01/04/2025 9:54 AM EDT Rose Elizalde MD POINT OF CARE TEST EN TER/EDIT ORDERABLES Final Result Performing Organization Address [facility] Co de Phone Number [facility] [address] [place] [phone] * POCT Rapid Covid-19 BinaxNOW (01/04/2025 9:45 AM EDT) Rapid COVID Ag Negative QC Media Lot # [id number] Lot# Expiration Date Swab 01/04/2025 9:45 AM EDT Rose Elizalde MD POINT OF CARE TEST [...] Media Lot # [id number] Lot# Expiration Date [id number] Urine 01/04/2025 9:43 AM EDT us Rose Elizalde MD POINT OF CARE TEST EN TER/EDIT ORDERABLES Final Result * XR Chest 2 Views (01/04/2025 9:14 AM EDT) Only the most recent of3 resultswithin the time period is included. Anatomical Region Laterality Modality Chest Radiographic Tamiko ging 01/04/2025 9:14 AM EDT Narrative 01/04/2025 9:38 AM EDT ?[facility] ?[address] ?[place] [address] ?XRay Report ? Signed ? Patient: Armendariz,Ojan R ?MR#: [id number] ?? [id number] ? : 1945 ?Acct:[id number] ? Age/Sex: 79 / F ?ADM Date: 01/04/25 ? Loc: HO.HHCX ? Attending Dr: Jeni Garcia MD ? Ordering Physician: Jeni Garcia MD ?? Date of Service: 01/04/25 ?? Procedure(s): XR chest 2V ?? Accession Number(s): [id number] ? cc: Jeni Garcia MD ? EXAMINATION: [...] ??Bony Ricks MD ??01/04/2025 09:36 AM EDT ?? RP ? Dictated By: ?Bony Ricks MD ? Signed By: ?<Electronically signed by Bony Ricks MD in OV> ?01/04/25 0936 ? DD/ 0914 ? TD/TT: 01/04/25927 ? Diesel Service Technician: ? Procedure Note Donotuseinterpreter, Image - 01/04/[address] [address] XRay Report Signed Patient: Joan Armendariz RMR#: [id number] : 1945cct:[id number] Age/Sex: 79 / FADM Date: 01/04/25 Loc: HO.HHCX Attending Dr: Jeni Garcia MD Ordering Physician: Jeni Garcia MD Date of Service: 01/04/25 Procedure(s): XR chest 2V Accession Number(s): [id number] cc: Jeni Garcia MD EXAMINATION: XR CHEST [...] signed by Bony Ricks MD in OV> 01/04/25935 DD/ 3 TD/TT: 01/04/25927 Diesel Service Technician: us Jeni Garcia MD IMG XR PROCEDURES Final Result * TSH with Reflex to Free T4 (01/03/2025 12:38 PM EDT) TSH reflex Free T4 0.65 0.32 - 4.0 uIU/mL [facility] Blood 01/03/2025 12:3 8 PM EDT 01/03/2025 1:06 PM EDT Jeni Garcia MD LAB BLOOD ORDERABLES Fin al Result Performing Organization Address [facility] Co de Phone Number [facility] [address] [place] [phone] * (ABNORMAL) Basic Metabolic Panel (01/03/2025 12:38 PM EDT) [facility] Sodium 135 135 - 145 mmol/L [facility] Potassium 3.7 3.3 - 5.1 mmol/L [facility] Chloride 98 96 - 108 mmol/L [facility] Carbon Dioxide 25 22 - 29 mmol/L [facility] Anion Gap 16 12 - 20 [facility] Urea Nitrogen (BUN) 25(H) 9 - 16 mg/dL [facility] Creatinine, Serum 1.20 0.5 - 1.4 mg/dL [facility] Estimated Glomerular Filt Rate 43 [facility] Comment:Chronic Kidney Disea se: Estimated GFR < 60 mL/min/1.05n6Ehedwk Kidney Disease: Estimated GFR < 15 mL/min/1.73m2 Glucose 111 60 - 115 mg/dL [facility] Calcium 9.4 8.4 - 10.2 mg/dL [facility] Blood Venous blood specimen / Unknown 01/03/2025 12:38 PM EDT 01/03/2025 1:06 PM EDT Jeni Garcia MD LAB BLOOD ORDERABLES Fin al Result Performing Organization Address [facility] Co de Phone Number [facility] [address] [place] [phone] * (ABNORMAL) SARS-CoV-2 RNA, Influenza A/B, and RSV RNA, Ql NAAT (11/29/2024 7:15 PM EST) Pathologist [facility] Influenza A PCR POSITIVE(A) Negative [facility] Influenza B PCR NEGATIVE Negative [facility] Resp Syncy Virus RNA Qual PCR NEGATIVE Negative [facility] SARS COV2 PCR NEGATIVE Negative [facility] Comment:All test results mus t [...] use by authorized laboratories.Testing performed on the [employer] GeneXpert utilizingreal-time RT-PCR.All SARS CoV2 and positive influenza A/B results arereported to [facility]. 11/29/2024 7:15 PM EST 11/29/2024 7:17 PM EST Generic External Data Provider LAB MICROBIOLOGY - GENERAL ORDERABLES Final Result Performing Organization Address [facility] Co de Phone Number [facility] [address] [place] [phone] * High Sensitivity Troponin I (11/29/2024 7:06 PM EST) [facility] TROPONIN I HIGH SENSITIVITY 4.3 <3.5 - 17.0 ng/L [facility] Comment:The Starr high sens itivity Troponin-I results should beused in conjunction with other diagnostic information suchas ECG, clinical observations and information, and patientsymptoms to aid in the diagnosis of MT. 11/29/2024 7:06 PM EST 11/29/2024 7:10 PM EST Generic External Data Provider LAB BLOOD ORDERAB LES Final Result Performing Organization Address [facility]/ZIP Co de Phone Number [facility] [address] [place] [phone] * (ABNORMAL) Prothrombin Time-INR (11/29/2024 7:06 PM EST) Prothrombin Time 12.6(H) 10.9 - 12.4 SEC [facility] INTERNATIONAL NORM RATIO 1.1 0.9 - 1.1 [facility] Comment:INTERNATIONAL NORMAL IZED RATIO (INR) REFERENCE [...] Provider LAB BLOOD ORDERAB LES Final Result [facility] [address] [place] [phone] * (ABNORMAL) Comprehensive Metabolic Panel (11/29/2024 7:06 PM EST) Pathologist [facility] Sodium 137 135 - 145 mmol/L [facility] Potassium 4.0 3.3 - 5.1 mmol/L [facility] Chloride 106 96 - 108 mmol/L [facility] Carbon Dioxide 23 22 - 29 mmol/L [facility] Anion Gap 12 12 - 20 [facility] Urea Nitrogen (BUN) 11 9 - 16 mg/dL [facility] Creatinine, Serum 1.02 0.5 - 1.4 mg/dL [facility] Creatinine Clr Calc Pharmacy 38.3 [facility] Comment:Provided height and weight: 147.32 cm,78.8 kg.eGFR (calculated from the MDRD study equation) and eCrCl(calculated from the Cockcroft-Gault equation) are based ondifferent parameters and may not yield comparable results.If eCrCl result is absurd, please check patient'sheight/weight. Estimated Glomerular Filt Rate 52 [facility] Comment:Chronic Kidney Disea se: Estimated GFR < 60 mL/min/1.03r5Zngevq Kidney Disease: Estimated GFR < 15 mL/min/1.73m2 Glucose 109 60 - 115 mg/dL [facility] Calcium 8.9 8.4 - 10.2 mg/dL [facility] Bilirubin, Total 0.3 0.0 - 1.0 mg/dL [facility] Aspartate Amino Transferase 35(H) 5 - 31 U/L [facility] Alanine Aminotransferase 24 0 - 31 U/L [facility] Total Protein 8.0 6.5 - 8.0 g/dL [facility] Albumin Level 3.8 3.5 - 5.0 g/dL [facility] Alkaline Phosphatase 64 39 - 117 U/L [facility] 11/29/2024 7:06 PM EST 11/29/2024 7:10 PM EST us Generic External Data Provider LAB BLOOD ORDERAB LES Final Result Performing Organization Address City/State/[facility] Co de Phone Number [facility] [address] [place] [phone] * BI Mammogram Screening Tomosynthesis Bilateral (01/04/2024 12:30 PM EDT) Anatomical Region Laterality Modality Breast Bilateral Mammography 01/04/2024 12:3 0 PM EDT Narrative 01/25/2024 12:29 AM EDT ? [facility] ? [address] ?[place] [address] ? Mammography Report ? Signed ? Patient: Armendariz,Joan R ?MR#: [id number] ?? [id number] ? : 1945 ?Acct:[id number] ? Age/Sex: 78 / F ?ADM Date: 03/20/24 ? Loc: HO.MAMMO ? Attending Dr: Jeni Garcia MD ? Ordering Physician: Jeni Garcia MD ?Results: 1Ne ?? gative ? Date of Service: 01/04/24 ?Follow Up: 1 Year From Orig ?? inal Mammogram ? Procedure(s): MM tomosynthesis screening BI ?? Accession Number(s): [id number] ? cc: Jeni Garcia MD ? EXAMINATION: [...] 01/25/2424 ? DD/ 1230 ? TD/TT: ? Diesel Service Technician: ? Procedure Note Donotuseinterpreter, Image - 01/25/2024 [facility] [address] [place] [address] Mammography Report Signed Patient: Joan Armendariz RMR#: [id number] : 3Acct:[id number] Age/Sex: 78 / FADM Date: 01/04/24 Loc: HO.MAMMO Attending Dr: Jeni Garcia MD Ordering Physician: Jeni Garcia MDResults: 1Ne gative Date of Service: 01/04/24Follow Up: 1 Year From Orig ina Mammogram Procedure(s): MM tomosynthesis screening BI Accession Number(s): [id number] cc: Jeni Garcia MD EXAMINATION: MM SCREENING [...] in OV> 01/25/24 0025 DD/ 1230 TD/TT: Diesel Service Technician: Jeni Garcia MD IMG BI PROCEDURES Final Result * POCT A1C (08/19/2023 1:08 PM EDT) Hemoglobin A1C 6.0 4.0 - 6.0 % QC Media Lot # [id number] Lot# Expiration Date Blood 08/19/2023 1:08 PM EDT Result [facility] Jayshree Andrade DO POINT OF CARE TEST ENTER/FADUMO T ORDERABLES Final Result * Lipid Panel with Reflex to Direct LDL (02/15/2023 11:09 AM EDT) Cholesterol, Total 141 <200 mg/dL [facility] HDL Cholesterol 54 > OR = 50 mg/dL [facility] Triglycerides 99 <150 mg/dL [facility] LDL Cholesterol 69 mg/dL (calc) [facility] Comment: Reference range: <100 Desirable range <100 mg/dL for primary prevention; ?? <70 mg/dL for patients with CHD or diabetic patients with > or = 2 CHD risk factors. LDL-C is now calculated using the Bebeto-Casandra calculation, which is a validated novel method providing better accuracy than the Friedewald equation in the estimation of LDL-C. Bebeto CANO et al. [place]. 2013;310(19): 7395-4642 (http://education.[employer]/faq/RNG868) Chol/HDLC Ratio 2.6 <5.0 (calc) [facility] Non-HDL Cholesterol 87 <130 mg/dL (calc) [facility] Comment: For patients with diabetes plus 1 major ASCVD risk factor, treating to a non-HDL-C goal of <100 mg/dL (LDL-C of <70 mg/dL) is considered a therapeutic option. 02/15/2023 11:0 9 AM EDT 02/15/2023 11:10 AM EDT Narrative [facility] - 02/16/2023 2:24 AM EDT FASTING:NO FASTING: NO Jeni Garcia MD LAB BLOOD ORDERABLES Fin al Result [facility] [address], [place] [phone] [facility] [address] [place] [address] from Last 3 Months or Most Recently Relevant to Health Maintenance Insurance [facility] DUAL COMPLETE [facility] Care Teams Manual Writer Relationship Specialty Start Date End Date Jeni Garcia MD [address] [place] [phone] PCP - General Family Medicine 12/16/15
--- OUTSIDE RECORDS SUMMARY | 2025-02-07 13:58 | XMS_ITS | Encounter Summary ---
Author Organization [employer] Address [address] [facility] 7t [place] [address] Care Team Providers Care Cement Handler Name Role Phone Jeni Garcia MD Primary Care Provider + Reason for Visit * Reason Comments Med Refill Encounter Details Date Type Department Care Team (Late st Contact Info) Description 10/19/2023 Refill [facility] MEDICINE [address] [place], [place] [phone] Jayshree Andrade DO [address] [place], [place] [phone] Social History Tobacco Use Types Packs/Day Years [...] Description 02/15/2025 11:15 AM EDT Office Visit [facility] MEDICINE [address] [place] [address] Jeni Garcia MD [address] [place] [phone] 05/28/2025 10:00 AM EDT Office Visit [facility] ADULT DENTAL [address] [place] [address] Keerthi Matute [address] [place] [phone] documented as of this encounter Visit Diagnoses Not on filedocumented in this encounter Additional Health Concerns Assessment Noted Time PHQ-9 Depression Total Score: 0 11/16/19 23 10:53 AM EST documented as of this encounter Care Teams Cement Handler Relationship Specialty Start Date End Date Jeni Garcia MD [address] [place] [phone] PCP - General Family Medicine 12/16/15 documented as of this encounter
--- OUTSIDE RECORDS SUMMARY | 2025-02-07 13:58 | XMS_ITS | Encounter Summary ---
Author Organization [employer] [facility] Address [address] [facility] 7t [place] [address] Care Team Providers Care Pump Installer Name Role Phone eJni Garcia MD Primary Care Provider + Encounter Details Date Type Department Care Team (Latest Contact Info) Description 04/28/2021 Abstract [facility] CONVERSIONS Dental, Provider, DDS Social [...] Upcoming Encounters Date Type Department Care Team ( st Contact Info) Description 02/15/2025 11:15 AM EDT Office Visit [facility] MEDICINE [address] [place] [address] Jeni Garcia MD [address] [place] [address] 05/28/2025 10:00 AM EDT Office Visit [facility] ADULT DENTAL [address] [place], [place] [phone] Keerthi Matute [address] [place] [address] [phone] documented as of this encounter Visit Diagnoses Not on filedocumented in this encounter Care Teams Pump Installer Relationship Specialty Start Date End Date Jeni Garcia MD [address] [place] [address] PCP - General Family Medicine 12/16/15 documented as of this encounter
--- OUTSIDE RECORDS SUMMARY | 2025-02-07 13:58 | XMS_ITS | Encounter Summary ---
Author Organization [employer] [facility] Address [address] [facility] 7t [place] [address] Care Team Providers Care Engineering Analyst Name Role Phone Jeni Garcia MD Primary Care Provider + Encounter Details Date Type Department Care Team (Late Contact Info) Description 02/25/2023 Orders Only [facility] MEDICINE [address] [place] [address] [phone] Jeni Garcia MD [address] [place] [address] [phone] Obstructive sleep apnea syndrome (Primary Dx) Social [...] Description 02/15/2025 11:15 AM EDT Office Visit [facility] MEDICINE 230 [place] [address] Jeni Garcia MD 230 [place], [place] [phone] 05/28/2025 10:00 AM EDT Office Visit [facility] ADULT DENTAL [address] [place], [place] [phone] Keerthi Matute [address] [place] [address] [phone] documented as of this encounter Visit Diagnoses Diagnosis Obstructive sleep apnea syndrome- Primary Obstructive sleep apnea (adult) (pediatric) documented in this encounter Additional Health Concerns Assessment Noted Time PHQ-9 Depression Total Score: 0 11/16/19 23 10:53 AM EST documented as of this encounter Care Teams Engineering Analyst Relationship Specialty Start Date End Date Jeni Garcia MD [address] [place], [place] [phone] PCP - General Family Medicine 12/16/15 documented as of this encounter
--- OUTSIDE RECORDS SUMMARY | 2025-02-07 13:58 | XMS_ITS | Encounter Summary ---
Author Organization [employer] Address [address] [facility] 7t [place] [address] Care Team Providers Care Gold Tooler Name Role Phone Jeni Garcia MD Primary Care Provider + Reason for Visit * Reason Onset Date Comments C pap request 01/26/2023 Encounter Details Date Type Department Care Team ([facility] st Contact Info) Description 01/26/2023 Telephone [facility] MEDICINE [address] [place], [place] [phone] Jeni Garcia MD [address] [place], [place] [phone] C pap request Social History Tobacco Use [...] on CPAP machine. Please contact pt at [phone] (Indonesian speaker) * Telephone Encounter - Aleshia Stark [...] Description 02/15/2025 11:15 AM EDT Office Visit [facility] MEDICINE [address] [place] [address] Jeni Garcia MD [address] [place] [address] 05/28/2025 10:00 AM EDT Office Visit [facility] ADULT DENTAL [address] [place], [place] [phone] Keerthi Matute [address] [place] [address] [phone] documented as of this encounter Visit Diagnoses Not on filedocumented in this encounter Additional Health Concerns Assessment Noted Time PHQ-9 Depression Total Score: 0 11/16/19 23 10:53 AM EST documented as of this encounter Care Teams Gold Tooler Relationship Specialty Start Date End Date Jeni Garcia MD [address] [place] [phone] PCP - General Family Medicine 12/16/15 documented as of this encounter
== END 2025-02-06 00:01 | disposition home or self-care (01) ==
LOC: HO.HHCLNP
PROVIDERS: Visit Provider Internal Medicine
DX: R10.13 Epigastric pain (principal)
CPT/HCPCS: 87329; 87338; 87493

== ENCOUNTER 2025-04-16 11:04 | Outpatient (AMB) | payer OTHER, SELFPAY ==
--- NOTE | 2025-04-16 11:32 | A.OFFVIS_ITS ---
VS Expanded 04/16/25 11:34 04/25/25 11:04 Height 4 ft 10 in 4 ft 10 in Weight 158 lb 15.253 oz 159 lb BMI 33.2 33.2 Intake Visit Reasons: Atherosclerotic heart disease of blackfeet coronary Allergies codeine (CODEINE) Allergy (Mild, Verified 01/28/25 10:02) Rash morphine (MORPHINE) Allergy (Mild, Verified 01/28/25 10:02) Hallucinations oxycodone (Percocet) Allergy (Mild, Verified 01/28/25 10:02) Hives tramadol Adverse Reaction (Severe, Verified 01/28/25 10:02) Headache Nutrition Presentation Details: Pt presents for MNT for CAD Pt presents by herself during this appt, reports doing ok Pt reports having had stroke in 12/2024 Pt reports having reduced appetite with increased nausea, reports the thought of food makes her nauseous Noted wt in 01/2025 at 166 lbs (6 lbs wt loss in 2 1/2 months) Pt reports her daughter helps with meal preparation but she may eat the starch and very little protein (reports chicken mostly) was having difficulties with bowel movements however got a rx from her PCP, cannot remember the name of the med but reports this has helped with bowels , last BM on Tuesday, has not taken the med yet as of today due to appt B: Plain crackers and coffee, 11: soup or rice and beans sauce, water or milk 4-5 : rice/alcocer or root veg and fish, water or juice snacks on crackers Pt reports she has hx of anemia, and takes iron supplements BS Monitoring Most Recent Diabetes Results: Creatinine, (0.5-1.4) 1.20 mg/dL 01/03/25 BUN, (9-16) 25 mg/dL H 01/03/25 Sodium, (135-145) 135 mmol/L 01/03/25 Potassium, (3.3-5.1) 3.7 mmol/L 01/03/25 Chloride, (96-108) 98 mmol/L 01/03/25 Carbon Dioxide, (22-29) 25 mmol/L 01/03/25 Calcium, (8.4-10.2) 9.4 mg/dL 01/03/25 OWS-Bmvqoge-Oi.Jeor Equation Height: 4 ft 10 in Weight: 159 lb Resting Metabolic Rate: 1081.72 Calculated Activity Level: Sedentary Calories Needed to Maintain Weight: 1298.06 Diagnosis Nutrition problem #1: food nutri know defi As related to (etiology) #1: diagnosis PFS Medical History Pleural effusion Cellulitis Limb swelling Chest pain Asthma Chronic allergic rhinitis Atelectasis of left lung Family History Father Lung cancer Mother Throat cancer Social History Patient Tobacco Use Status: Former Tobacco user Tobacco use type: Cigarette Years Smoked: 4 years Assessment & Plan Assessment & Plan (1) Atherosclerotic cardiovascular disease: Code(s): I25.10 - Atherosclerotic heart disease of blackfeet coronary artery without angina pectoris Category: Medical Plan: Wt: 72 Kg ( 05/10 ) Est kcal needs as per 25 kcal/kg BW: 1800 (40% carb, 30% protein/fat) Est fluid needs as per 25-30 ml/d: 2200 Est prot per day as per 1 g/kg bw: 70 Recommend fiber intake : 8-10 g per day and gradually increase to 25-28 g per day for women and 35-38 g for men or as tolerated Recommend sodium intake per day : less than 2000 mg Educated patient on: ( R = reviewed V = verbalizes understanding N/R = needs review N/A = not applicable * Food sources of carbohydrate, adequate serving sizes and its role in various health conditions: R V N/R * Differences between complex carbohydrates a simple carbohydrates, role of fiber in diet: R choosing soft foods * Lean protein sources of foods: R * Differences between types of fats and role in diet (mono on saturated fat fatty acids, saturated fatty acids, trans fats): R * Food sources of sodium in salt and healthy modifications for heart health in kidney health: R V R/V * Vitamins and minerals: R V N/R * Healthy plate method concept: R * Physical activity: Benefits a precaution: R V N/R * Hypoglycemia protocol (rule of 15): R V N/R * Dietary prevention of Hyperglycemia: R V R/V Patient Instructions: Have 3 -4 small meals a day, work on eating protein food first , choose soft protein foods t have at least 2 cups of fairlife milk per day (for an additional 26 g of protein per day) See meal plan ideas (ex oatmeal, tuna fish, mashed beans, scrambled eggs, yogurt, low fat cottage cheese , spinach Coding Level of Care Code Nutr Indiv Intake (62363) Diagnoses Atherosclerotic cardiovascular disease I25.10 Time Spent (min) 30
[2025-04-16 11:34] VITALS: BMI 33.2
--- OUTSIDE RECORDS SUMMARY | 2025-04-16 12:19 | XMS_ITS | Encounter Summary ---
Author Organization [employer] Address [address] [place] [address] 7 [place] [address] Care Team Providers Care Tailer Off Name Role Phone Jeni Garcia MD Primary Care Provider + Reason for Visit * Reason Onset Date Comments Appointment Request 04/10/2025 Encounter Details Date Type Department Care Team ([facility] Contact Info) Description 04/10/2025 Telephone [facility] MEDICINE 230 [place], [place] [phone] Jeni Garcia MD [address] [place], [place] [phone] Appointment Request Social History Tobacco Use Types Packs/Day Years Used Date Smoking Tobacco: Never Passive Smoke Exposure: Never Smokeless Tobacco: Never Alcohol Use Standard Drinks/Week Comments Never 0 (1 standard drink = 0.6 oz pur e alcohol) Depression Answer Date Recorded Patient Health Questionnaire-9 Score 0 11/16/2022 Housing Stability Answer Date Recorded What is your housing situation today? I have dimitry adams 02/08/[address] you li ve. Do you have problems with any of the following? None of the above 02/08/2025 Food Insecurity Answer Date Recorded Within the past 12 months, y ou worried that your food would run out before you got money to buy more: Never True 02/08/2025 Within the past 12 months,th e food you bought just didn't last and you didn't have enough money to get more: Never True Transportation Answer Date Recorded In the past 12 months, has l ack of transportation kept you from medical appts, meetings, work or from getting things needed for daily living? No 02/08/2025 Utilities Answer Date Recorded In the past 12 months, has t he electric, gas, oil or water company threatened to shut off services in your home? No 02/08/2025 Depression Answer Date Recorded Patient Health Questionnaire-2 Score 0 12/12/2023 Internet Access Answer Date Recorded Internet Access Q1 Yes 02/08/2025 Internet Access Q2 Not on file 02/08/2025 Comments No Sex and Gender Information Value Date Recorded Sex Assigned at Female 08/16/2022 10:14 AM EDT Legal Sex Female 10:14 AM EDT Gender Identity Female 08/16/2022 10:14 AM EDT Sexual Orientation Straight 08/16/2022 10 :14 AM EDT documented as of this encounter Miscellaneous Notes * Telephone Encounter - Skyla Tracey MA - 04/10/2025 8:20 PM EDT I booked pt for 04/18 @ 12 pm * Telephone Encounter - Jonel Gerardo - 04/10/2025 3:28 PM EDT Tc from pt calling in regards to message prior stating she will take appt 04/18 anytime from 11:15 to12:00, 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 * Telephone Encounter - Fabienne Weisntein - 04/10/2025 3:11 PM EDT Called PT and daughter's number to RS appt from 05/03/2025 to 04/18/2025. NA\LVM on daughter's phone due to PT VM being too full and unable to LVM. PT appt for 05/03/2025 will be cancelled. If PT calls back please offer appt for 04/18/2025 if still available. documented in this encounter Plan of Treatment Upcoming Encounters Date Type Department Care Team (Late st Contact Info) Description 04/18/2025 12:00 PM EDT Office Visit [facility] MEDICINE [address] [place] [address] Jeni Garcia MD [address] [place] [address] 05/28/2025 10:00 AM EDT Office Visit [facility] ADULT DENTAL [address] [place], [place] [phone] Keerthi Matute [address] [place] [address] [phone] documented as of this encounter Visit Diagnoses Not on filedocumented in this encounter Additional Health Concerns Assessment Noted Time PHQ-9 Depression Total Score: 0 11/16/19 23 10:53 AM EST documented as of this encounter Care Teams Tailer Off Relationship Specialty Start Date End Date Jeni Garcia MD [address] [place] [phone] PCP - General Family Medicine 12/16/15 documented as of this encounter
--- OUTSIDE RECORDS SUMMARY | 2025-04-16 12:19 | XMS_ITS | Clinical Summary ---
Author Organization [facility] Address [address] [place] [address] Phone Care Team Providers Care Administrator Health Care Facility Name Role Phone Jeni Garcia MD Primary Care Provider + [phone] Allergies Active Allergy Reactions Criticality Noted Date Comments Codeine Dizziness 08/16/2022 Morphine 11/07/2023 Oxycodone-Acetaminophen Dizziness 08/16/2022 Other Reaction(s): Rash/Dermatitis Tramadol 11/14/2024 Medications levothyroxine (SYNTHROID, LEVOTHROID) 50 mcg tablet Take 1 Tablet by mouth daily. Active methotrexate (Xatmep) 2.5 mg/mL Take by mouth. Active gabapentin (NEURONTIN) 100 mg capsule Take 1 Capsule by mouth daily. Active fluticasone propion-salmete roL (ADVAIR HFA) 115-21 mcg/actuation inhaler Inhale 2 Puffs into the lungs 2 times daily. Active acetaminophen (TYLENOL) 500 mg tablet Take 1 Tablet by mouth every 6 hours as needed. Active cholecalciferol (VITAMIN D-3) 25 mcg (1,000 unit) capsule Take by mouth. Active famotidine (PEPCID) 40 mg tablet Take 40 mg by mouth daily. Active omeprazole (PriLOSEC) [address] capsule Take 20 mg by mouth daily. Active folic acid (FOLVITE) 1 mg tablet Take 1 mg by mouth daily. Active hydroCHLOROthia zide (HYDRODIURIL) 25 mg tablet Take 25 mg by mouth daily. Active montelukast (SINGULAIR) 10 mg tablet Take 10 mg by mouth at bedtime. Active pantoprazole (PROTONIX) 40 mg EC tabletIndicatio ns:Gastroesopha geal reflux disease, unspecified whether esophagitis present Take 1 tablet (40 mg total) by mouth 2 (two) times a day. Do not crush, chew, or split. 60 each 11 11/14/19 Active carvediloL (COREG) 6.25 mg tablet TAKE 1 TABLET BY MOUTH WITH BREAKFAST AND EVENING MEAL Active aspirin 81 mg EC tablet Take 1 tablet (81 mg total) by mouth. 10/31/19 025 Active methotrexate 2.5 mg tablet TAKE 8 TABLETS ONCE WEEKLY ON MONDAYS Active loratadine (CLARITIN) 10 mg tablet Take 1 tablet (10 mg total) by mouth 1 (one) time each day in the morning. Active atorvastatin (LIPITOR) 10 mg tablet Take 1 tablet (10 mg total) by mouth. 10/31/19 025 Active oxyCODONE (OXY-IR) 5 mg immediate release capsule Take by mouth. Active clopidogreL (PLAVIX) 75 mg tablet Take 1 tablet (75 mg total) by mouth 1 (one) time each day. Active olmesartan medoxomil (OLMESARTAN ORAL) Take by mouth. Active ferrous sulfate (IRON ORAL) Take by mouth. Active sennosides/docu sate sodium (SENEXON-S ORAL) Take by mouth. Active BIOTIN ORAL Take by mouth. Discontinued fluticasone propionate (FLONASE) 50 mcg/actuation nasal spray 2 Sprays by Each Nare route daily. Discontinued losartan (COZAAR) 100 mg tablet Take 100 mg by mouth daily. Discontinued Hospital, Clinic, or Other Facility Administered Medication Ordered Dose Route Frequency Start Date End Date Status lidocaine (PF) (XYLOCAINE-MPF) 1 % injection 2 mLIndications:Post-tr aumatic osteoarthritis of left knee 2 mL inj Once PRN Procedure 04/10/2025 04/10/2025 Ended triamcinolone acetonide (KENALOG-40) 40 mg/mL injection 80 mgIndications:Post-tr aumatic osteoarthritis of left knee 80 mg IAtc Once PRN Procedure 04/10/2025 04/10/2025 Ended Active Problems Problem Noted Date Diagnosed Date Post-traumatic osteoarthritis of left knee 01/02 Myocardial infarction ([facility] V24, [facility] V28) 01/02/2025 S/P angioplasty with stent 01/02/2025 Status post total right knee replacement 025 Cholelithiasis 12/03/2024 CKD (chronic kidney disease) , stage III ([facility] V24, [facility] V28) 11/15/2024 Severe obesity (BMI 35.0-39. 9) with comorbidity ([facility] V24, [facility] V28) 11/15/2024 Dental plaque 11/13/2024 Cellulitis 09/04/2024 Fracture of vertebra due to osteoporosis with delayed healing 07/06/2024 Overview (11/15/2024): Xray L-spine on 06/28: L4 fracture/sp T12 vertebral augmentation-previous fx- Leg pain, diffuse, right 06/28/2024 Celiac artery stenosis ([facility] V24) 06/13/2024 Renal artery stenosis ([facility] V24) 06/13/2024 Superior mesenteric artery stenosis ([facility] V24 ) 06/13/2024 Open broken tooth due [...] pain 06/28/2017 Hypothyroidism 06/28/2017 Rheumatoid arthritis, adult ([facility] V24, [facility] V[facility]) 06/28/2017 Degeneration of lumbar intervertebral disc 12/10 Chronic obstructive pulmonar y disease ([facility] V24, [facility] V28) 12/11/2012 Angle-closure glaucoma 09/29/2012 GERD (gastroesophageal reflux disease) 2 Eosinophil count raised 05/15/2012 Hypertension 04/12/2012 Gait instability 04/12/2012 Neck pain 04/12/2012 Encounters Date Type Department Care Team Description 04/10/2025 9:00 AM EDT Office Visit Orthopedic Surgery - [address] [phone] Laazro Saleh MD Post-traumatic osteoarthritis of left knee (Primary Dx); Gait instability; S/P angioplasty with stent from Last 3 Months Surgical History Surgery Date Site/Laterality Comments SHOULDER SURGERY 01/06/2023 Left PROCEDURE: HISTORICAL SHOULDER SURGERY; COMMENT: RTSA Medical History Medical History Date Comments [place] [place] [facility] [place] 12/22/19 DURING A CRUISE Social History Tobacco Use Types Packs/Day Years [...] Blood Pressure 180/79 11/07/2023 12:01 PM EST Si tting L Arm Pulse 70 11/07/2023 12:01 PM EST Temperature - - Respiratory Rate - - Oxygen Saturation - - Inhaled Oxygen Concentration - - Weight 75.3 kg (166 lb) 04/10/2025 8:52 AM EDT Height 147.3 cm (4' 10 ) 04/10/2025 8:52 AM EDT Body Mass Index 34.69 04/10/2025 8:52 AM EDT Plan of Treatment Upcoming Encounters Date Type Department Care Team (Late st Contact Info) Description 07/11/2025 1:30 PM EDT Office Visit Orthopedic Surgery - [place] [address] [facility] [address] [place] [phone] Eloisa Torres NP [address] [address] Health Maintenance Due Date Last Done Comments Zoster Vaccines (1 of 2) 03/19/2015 01/22/2015 RSV Immunization Adult Patients (1 - 1-dose 75+ series) 2018 Cholesterol Screening (Lipid Panel) 09/25/2022 Falls Risk Assessment 09/25/2022 Medicare Annual Wellness Visit 09/25/2022 Osteoporosis Screening (Bone Density Screening) 09/25/2022 Social Influencers of Health Screening 09/25/2022 Depression Screening 11/16/2023 11/16/2022 COVID-19 Vaccine ( season) 2024 09/23/2021, 12/30/2020, 12/02/2020 Influenza Vaccine (#1) 2025 , 07/22/2022, 09/23/2021, Additional history exists Hypertension/CHF/CAD Annual BMP Blood Test 11/29/2025 11/29/2024 [...] Procedure Name Priority Date/Time Associated Diagnosis Comments SC ARTHROCENTESIS/ASP IRATION/INJECTION MAJOR JOINT/BURSA W/O U/S GUIDANCE Routine 04/10/2025 9:00 AM EDT Post-traumatic osteoarthritis of left knee from Last 3 Months Results * SC ARTHROCENTESIS/ASPIRATION/INJECTION MAJOR JOINT/BURSA W/O U/S GUIDANCE (04/10/2025 9:00 AM EDT) Narrative Lazaro Saleh MD - 04/10/2025 9:00 AM EDT Lazaro Saleh MD 04/10/2025 9:55 AM L Inj/Asp: L knee Details: 22 G needle, anterolateral approach Medications: 2 mL lidocaine (PF) 1 %; 80 mg triamcinolone acetonide 40 mg/mL Outcome: tolerated well, no immediate complications Procedure: After discussion of risks and benefits, informed consent was verbally obtained for LEFT knee corticosteroid injection. The lateral arthroscopic soft spot was identified and marked. This was sterilized with chlorhexidine and alcohol. I then injected 2ml of 1% plain Lidocaine, 2ml 0.25% plain bupivacaine, and 80 mg of Kenalog intra-articularly without resistance. Hemostasis was achieved and a sterile Band-Aid was applied. The patient tolerated the procedure well. Postinjection risks and instructions were reviewed including activity modification, cold therapy, potential NSAIDs use, effects on blood sugar levels, and monitoring for signs of complications. Informed Consent: Laterality: Left Relevant images/test results available and reviewed: yes Health status cleared: Yes Procedure/treatment, purpose, treatment alternatives, risks/potential complications and benefits explained: yes Patient questions answered: yes Patient agrees, verbalizes understanding, and wants to proceed: yes Consent given by: Patient Informed consent discussion completed by Physician/LORENE with patient: Verbal Pre-procedure timeout performed: yes us Lazaro Saleh MD IN CLINIC/BEDSIDE ORD ERABLES Final Result from Last 3 Months Insurance MEDICAID - [place] [employer] MEDICARE Advance Directives Documents on File Type Date Recorded Patient Bench Loom Weaver Expl anation Health Care Decision (hx) 03/27/2019 [...] (hx) 03/27/2019 AD CEJA DIRECTIVE Care Teams Administrator Health Care Facility Relationship Specialty Start Date End Date Jeni Garcia MD [address] [place] [phone] PCP - General 05/19/21
--- OUTSIDE RECORDS SUMMARY | 2025-04-16 12:19 | XMS_ITS | Clinical Summary ---
Author Organization [facility] Address [address] [facility] [address] [place] [address] Phone Care Team Providers Care Project Executive Name Role Phone Jeni Garcia MD Primary Care Provider + [phone] Allergies Active Allergy Reactions Criticality Noted Date [...] Encounters Date Type Department Care Team Description 04/02/2025 Orders Only [facility] [address] [place] [phone] Luke Quinn MD Hypertension from Last 3 Months Immunizations Immunization Administration [...] kg (181 lb 3.2 oz) 10/02/2024 1:33 PM EST Height 149.9 cm (4' 11 ) 11/26/2021 2:42 PM EST Body Mass Index 36.6 11/26/2021 2:42 PM EST Plan of Treatment Upcoming Encounters Date Type Department Care Team (Late st Contact Info) Description 10/01/2025 1:45 PM EST Office Visit [facility] [address] [phone] Luke Quinn MD [address] [phone] Health Maintenance Due Date Last Done Comments [...] 4.8 - 5.6 % [facility] Comment: Prediabetes: 5.7 - 6.4 Diabetes: >6.4 Glycemic control for adults with diabetes: <7.0 Blood specimen (specimen) Venous blood / Unknown 09/25/2024 10:16 AM EST 09/25/2024 Luke Quinn MD LAB BLOOD ORDERABLES Final Result [facility] [address] [place] [phone] from Last 3 Months or Most Recently Relevant to Health Maintenance Insurance Dual [employer] [facility] Dual [employer] Medicaid [place] Care Teams Project Executive Relationship Specialty Start Date End Date Jeni Garcia MD [address] [place] [phone] PCP - General Internal Medicine 08/06/21
--- OUTSIDE RECORDS SUMMARY | 2025-04-16 12:19 | XMS_ITS ---
Author Name Catracho Love NP Address [address] [place] [address] Phone [phone] [facility] Care Team Providers Care Outreach Clinician Name Role Phone LoveRogerio harriscatrinakalin Unavailable [phone] Jeni Garcia Unavailable Unavailable Unavailable [phone] Unavailable Unavailable [phone] Unavailable Unavailable [phone] Reason for Referral Not Available Allergies, adverse [...] delayed rel No Data Available 02-15-16 2025-01-30 Ondansetron 4 mg Tab Disintegrating 1 tablet orally every 8 hours prn 2025-04-02 No Data Available Lactulose 10 GM/15ML Solution 30 ml ONCE DAILY NEEDED FOR CONSTIPATION 2025-04-14 No Data Available Problem List Problem Status Onset Date Resolved Date Synopsis Glaucoma Active 2022-11-05 N/A Adhere to Medi cations. You may need to take a variety of eyedrops throughout the day to manage your glaucoma. Maintain a schedule to take the proper dosage on time.01/17/2025 sees medical science liaison yearly Cataracts, bilateral Active 2022-11-05 N/A 2024 no need for surgery yet , monitored yearly Mixed hyperlipidemia due to type 2 diabetes mellitus Active 2023-11-25 N/A - patie nt education the importance of diabetic diet, exercise, medication compliance. patient education on hypoglycemia and hyperglycemia signs and symptoms. monitor daily BGL. patient to assess feet daily for any cuts or wounds and to notify pcp or [facility] as soon as possible. COPD (chronic obstructive pulmonary disease) Active 2025-01-17 N/A Rx: advair, a lbuterol importance of small meals, medication compliance, breathing techniques, and weight loss. 01/17/2025 patient sees trauma registrar every 3-6 months 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Immunocompromised Active 2022-11-05 N/A Methotrexa re, taking fewer (6) tabs than prescribed (8),- stretching, range of motion exercise such as ( walking , cycling, or water exercise). rest when in pain exacerbation 01/17/2025 patients is on hold with medication right now due to interaction with abx. patient josé RA specialist 01/14/2025 and she was referred to pain management. has an appointment with pain management 01/31/2025 03/21/25: Reports back pain exacerbation, taking PRN gabapentin with good effect. Atherosclerosis of renal artery, Atherosclerosis of [place] arteries of extremities with intermittent claudication, bilateral legs Active 2022-11-05 N/A Rx: atorvastatin weight management, exercising regularly, eating a diet low in saturated or transfat, no smoking, and limiting alcohol intake. 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History of myocardial infarctionHypercoagulable state due to atrial fibrillation, unspecified type Active 2023-11-25 N/A Rx: nitro, clop idogrel Choose heart-healthy foods, Aim for a healthy weight, Be physically activity, Manage stress, Quit smoking, and Get enough good-quality sleep.01/17/2025 patient had [place] while on vacation on a [place] earlier this year sees personal care assistant yearly Essential (primary) hypertension Active 2025-01-17 N/A Rx: carvedilolMo nitor BP routinely, low salt diet, exercise as tolerable, and continue f/u care with PCP. GERD (gastroesophageal reflu x disease) Active 2025-01-17 N/A Rx: famotidine, pantoprazole Don't lie down for at least 2 to 3 hours after eating small meals, avoid fatty foods, avoid spicy food, avoid chocolate, avoided caffeinated drinks, avoid alcoholic beverages. Hypothyroid Active 2025-01-17 N/A Rx: levothyro xine- take medication 30-60 mins before first meal and not to mix with other medications. diet high in vegetables, whole grains, and lean protenin and exercise. encouraged to report increased fatigue or thirst, feelings of jitteriness, or heart palpitations Class 1 obesity due to exces s calories with serious comorbidity and body mass index (BMI) of 33.0 to 33.9 in adult Active 2025-01-17 N/A p atient educated on the importance of diet compliance or modifications and exercise as tolerated Cellulitis Active 2025-01-17 N/A 01/17/2025 : on 01/10/2025 patient had an abscess near the right groin of where she had cardiac catheter earlier that month. patient diagnosed with cellulitis. patient diagnosed with cellulitis, and was sent home with antibiotics. levaquin 250 for UTI and doxycycline 100 mg 1 tab by mouth BID for 10 days. also applying mupirocin . on Tuesday01/22/2025 will see her pcp CKD (chronic kidney disease) stage 3, GFR 30-59 ml/min Active 2025-01-17 N/A outsid e care: eGFR 43 (01/03/2025) Avoid nephrotoxic medications (NSAIDS, high dose Gabapentin, Baclofen, Fleet Enema, Morphine/Codeine) type 2 DM with diabetic peripheral angiopathy without gangrene Active 2023-11-25 N/A Rx: gabapentin e levate and massage legsrecommend compression stockings patient needs to watch for any warm, red, painful, and swollen symptoms. Elevating the lower extremities above the heart. avoid sitting for long periods. Hospitalization within last 30 days Active 2025-01-27 N/A [facility]. 01/19-01/20/25. Acute abdominal pain, gastritis. D/C home . No changes to medication; Patient feels well Other problems related to medical facilities and other health care Active 2025-01-17 N/A WOUND CONTING ENCY PLANLast updated: 01/17/2025Member to call for the following symptoms: Fever/ HR >100 / Increased wound size / Wound bleeding/ Wound drainagePlanned intervention: Ensure appropriate offloading of wound/ Encourage increased fluid intake/ MRSA Suspected - Bactrim DS BID x7d/ Take Tylenol for pain or feverABDOMINAL PAIN CONTINGENCY PLANLast updated: 01/30/2025Member to call for the following symptoms: Abdominal pain/ Constipation/ Diarrhea/ Nausea/ VomitingPlanned intervention: Advise to avoid eating for 24 hours for bowel rest/ Increase intake of water / Two prunes or a glass of prune or apple juice / Senna or Dulcolax two tabs po / Famotidine 40mg daily/ Phenergan 25mg PO q6h as needed Goals of care, counseling/discussion Active 2025-03-22 N/A 03/22/25: Gurvinder wakefield confirmed HCP assigned son/daughter and desire to be a full code status. She is aware of her prognosis but she has moderate insight regarding her prognosis. 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 She lives with her daughter and she would like to continue to have quality of care. Constipation Active 2025-04-14 N/A 04/14/25: Rx : Lactulose 10 GM/15ML Solution-30 ml ONCE DAILY NEEDED FOR CONSTIPATION. Advised to increase fluids and fiber intake (eat prunes or prune juice daily). Take OTC MiraLAX, Senna-S or Dulcolax, Dulcolax suppository. Contact [facility] 09/05 for any new, worsening or continued symptoms of increased abdominal pain. Encounters Encounters Type Facility Date of Service Diagnosis/Co mplaint New patient,40-59min; chronic exacerbation, 2 stable chronic or 1 acute illness add add modifier 95 for video (do not use for phone, instead use 18262-79) [facility] ([place] Rheumatoid polyneurop w rheu matoid arthritis of unsp siteAtherosclerosis of renal arteryAthscl [place] arteries of extrm w intrmt nilesh, bi legsPersonal history of urinary calculi New patient,40-59min; chronic exacerbation, 2 stable chronic or 1 acute illness add add modifier 95 for video (do not use for phone, instead use 32614-77) [facility] [place] New patient,40-59min; chronic exacerbation, 2 stable chronic or 1 acute illness add add modifier 95 for video (do not use for phone, instead use 41043-81) [facility] ([place] New patient,40-59min; chronic exacerbation, 2 stable chronic or 1 acute illness add add modifier 95 for video (do not use for phone, instead use 41368-31) [facility] ([place] New patient,40-59min; chronic exacerbation, 2 stable chronic or 1 acute illness add add modifier 95 for video (do not use for phone, instead use 10552-68) [facility] [place] New patient,40-59min; chronic exacerbation, 2 stable chronic or 1 acute illness add add modifier 95 for video (do not use for phone, instead use 48760-73) [facility] [place]20[place] No Data Available [facility] [place]2022 Primary osteoarthritis, left elbowPersonal history of urinary calculi No Data Available [facility] [place]2022 No Data Available [facility] [place]20[place] No Data Available [facility] [place]/2023 Shortness of breathCough, unspecified Estab. patient 20-29min; 1 stable chronic or 2 minor; add add modifier 95 for video, modifier 93 for phone [facility] ([place]/2023 Rheumatoid polyneurop w rheu matoid arthritis of unsp siteAtherosclerosis of renal arteryAthscl [place] arteries of extrm w intrmt nilesh, bi legsPersonal history of urinary calculiAcquired absence of other specified parts of digestive tractUnspecified asthma, uncomplicatedUnspecified glaucomaUnspecified cataractImmunodeficiency due to drugsOther shelter (current) drug therapyChronic obstructive pulmonary disease, unspecifiedObesity, unspecifiedBody mass index (BMI) 35.0-35.9, adultPrimary osteoarthritis, left elbowShortness of breathCough, unspecified Estab. patient 20-29min; 1 stable chronic or 2 minor; add add modifier 95 for video, modifier 93 for phone [facility] ([place]20[place] Estab. patient 20-29min; 1 stable chronic or 2 minor; add add modifier 95 for video, modifier 93 for phone [facility] ([place] 07/[place]/20[place] Estab. patient 20-29min; 1 stable chronic or 2 minor; add add modifier 95 for video, modifier 93 for phone [facility] [place] Estab. patient 20-29min; 1 stable chronic or 2 minor; add add modifier 95 for video, modifier 93 for phone [facility] [place]/2023 Estab. patient 20-29min; 1 stable chronic or 2 minor; add add modifier 95 for video, modifier 93 for phone [facility] [place]23 No Data Available [facility] [place]2023 Chronic obstructive pulmonar y disease, unspecifiedRheumatoid polyneurop w rheumatoid arthritis of unsp siteAtherosclerosis of renal arteryAthscl [place] arteries of extrm w intrmt nilesh, bi legsImmunodeficiency due to drugsPersonal history of urinary calculiAcquired absence of other specified parts of digestive tractUnspecified asthma, uncomplicatedUnspecified glaucomaUnspecified cataractOther shelter (current) drug therapyObesity, unspecifiedBody mass index (bmi) 34.0-34.9, adultPrimary osteoarthritis, left elbowShortness of breathCough, unspecifiedCellulitis, unspecified No Data Available [facility] [place]2023 No Data Available [facility] [place] No Data Available [facility] [place]2023 RN, CN or CP time with patient by phone; use with 1111F, BP, A1c or other CPTII codes [facility] ([place]) 09/26/2023 Encounter for other specifie d aftercare RN, CN or CP time with patient by phone; use with 1111F, BP, A1c or other CPTII codes [facility] ([place] 09/26/2023 Estab. patient 30-39min; chronic exacerbation, 2 stable chronic or 1 acute illness add add modifier 95 for video, (do not use for phone, instead use 17392-72) [facility] [place]/2023 Rheumatoid polyneurop w rheu matoid arthritis of unsp siteAtherosclerosis of renal arteryAthscl [place] arteries of extrm w intrmt nilesh, bi legsUnspecified glaucomaUnspecified cataractImmunodeficiency due to drugsOther shelter (current) drug therapyChronic obstructive pulmonary disease, unspecifiedObesity, unspecifiedPrimary osteoarthritis, left elbowOther problems related to medical facilities and other health careAthscl heart disease of [place] cor art w unstable ang pctrsPeripheral vascular disease, unspecifiedDermatitis, unspecifiedType 2 diabetes mellitus with other specified complicationMixed hyperlipidemia Estab. patient 30-39min; chronic exacerbation, 2 stable chronic or 1 acute illness add add modifier 95 for video, (do not use for phone, instead use 94962-75) [facility] [place] Estab. patient 30-39min; chronic exacerbation, 2 stable chronic or 1 acute illness add add modifier 95 for video, (do not use for phone, instead use 43818-67) [facility] [place] Estab. patient 30-39min; chronic exacerbation, 2 stable chronic or 1 acute illness add add modifier 95 for video, (do not use for phone, instead use 42391-32) [facility] [place] Estab. patient 30-39min; chronic exacerbation, 2 stable chronic or 1 acute illness add add modifier 95 for video, (do not use for phone, instead use 28052-94) [facility] [place] Estab. patient 30-39min; chronic exacerbation, 2 stable chronic or 1 acute illness add add modifier 95 for video, (do not use for phone, instead use 10697-69) [facility] [place] Estab. patient 30-39min; chronic exacerbation, 2 stable chronic or 1 acute illness add add modifier 95 for video, (do not use for phone, instead use 20404-29) [facility] [place] Estab. patient 30-39min; chronic exacerbation, 2 stable chronic or 1 acute illness add add modifier 95 for video, (do not use for phone, instead use 28725-19) [facility] [place] Estab. patient 30-39min; chronic exacerbation, 2 stable chronic or 1 acute illness add add modifier 95 for video, (do not use for phone, instead use 25962-30) [facility] [place] Estab. patient 30-39min; chronic exacerbation, 2 stable chronic or 1 acute illness add add modifier 95 for video, (do not use for phone, instead use 69043-20) [facility] [place]20[place] Estab. patient 30-39min; chronic exacerbation, 2 stable chronic or 1 acute illness add add modifier 95 for video, (do not use for phone, instead use 02184-50) [facility] [place] Estab. patient 10-29min; 1 minor problem; add add modifier 95 for video, modifier 93 for phone [facility] [place]17[place]2025 Type 2 diabetes mellitus wit h diabetic chronic kidney diseaseChronic kidney disease, stage 3 unspecifiedType 2 diabetes w diabetic peripheral angiopath w/o gangreneAthscl [place] arteries of extrm w intrmt nilesh, bi legsType 2 diabetes mellitus with other specified complicationMixed hyperlipidemiaRheumatoid polyneurop w rheumatoid arthritis of unsp siteAthscl heart disease of [place] cor art w unstable ang pctrsUnspecified atrial [...] 95 for video, modifier 93 for phone [facility] [place]/17/[place] Estab. patient 10-29min; 1 minor problem; add add modifier 95 for video, modifier 93 for phone [facility] [place] 01/17/20[place] Estab. patient 10-29min; 1 minor problem; add add modifier 95 for video, modifier 93 for phone [facility] [place] Estab. patient 10-29min; 1 minor problem; add add modifier 95 for video, modifier 93 for phone [facility] [place]/17[place]20[place] Estab. patient 10-29min; 1 minor problem; add add modifier 95 for video, modifier 93 for phone [facility] [place]/17[place]20[place] Estab. patient 10-29min; 1 minor problem; add add modifier 95 for video, modifier 93 for phone [facility] [place]/17[place]20[place] Estab. patient 10-29min; 1 minor problem; add add modifier 95 for video, modifier 93 for phone [facility] [place]/17[place]20[place] Estab. patient 10-29min; 1 minor problem; add add modifier 95 for video, modifier 93 for phone [facility] [place]/17[place]20[place] Estab. patient 10-29min; 1 minor problem; add add modifier 95 for video, modifier 93 for phone [facility] [place]/17[place]20[place] Estab. patient 10-29min; 1 minor problem; add add modifier 95 for video, modifier 93 for phone [facility] [place] 01/17/20[place] Estab. patient 10-29min; 1 minor problem; add add modifier 95 for video, modifier 93 for phone [facility] [place]/20[place] Personal history of other me dical treatmentOther problems related to medical facilities and other health care Estab. patient 10-29min; 1 minor problem; add add modifier 95 for video, modifier 93 for phone [facility] [place] 01/30/20[place] Estab. patient 10-29min; 1 minor problem; add add modifier 95 for video, modifier 93 for phone [facility] [place] 03/[place]/2025 Rheumatoid polyneurop w rheu matoid arthritis of uns siteImmunodeficiency, unspecifiedOther specified counseling Estab. patient 10-29min; 1 minor problem; add add modifier 95 for video, modifier 93 for phone [facility] [place] 04/14/2025 Constipation, unspecified Vital Signs Date of Collection Vitals 2022-11-05 [...] tive Time Current Smoking Status Former smoker 1 Sex Female Gender identity Woman History of Procedures Procedures Service Procedure code Service date Servicing provider Phone# New patient,40-59min; chronic exacerbation, 2 stable chronic or 1 acute illness add add modifier 95 for video (do not use for phone, instead use 97983-02) [id number] 2022-11-05 No Data Available No Data Availa [...] le No Data Available No Data Available [id number] 2022-12-02 No Data Available No Data Available Medication List Documented (1159F) 1159F 2022-12-02 No Data Available No Data Lucretai ilable Pain Assessment - Pain Documented on a Pain Scale (1125F) 1125F 2022-12-02 No Data Available No Data Lucretia ilable No Data Available [id number] 2023-01-25 No Data Available No Data Available Estab. patient 20-29min; 1 stable chronic or 2 minor; add add modifier 95 for video, modifier 93 for phone [id number] 2023-07-25 No Data Available No Data Availa [...] le No Data Available No Data Available [id number] 2023-09-30 No Data Available No Data Available [...] 1111F, BP, A1c or other CPTII codes 21636 2023-09-26 No Data Available No Data Avai lable Medications prescribed in hospital were reviewed and reconciled against what they were taking prior to admission during today's visit. (1111F) 1111F 2023-09-26 No Data Available No Data Availa ble Estab. patient 30-39min; chronic exacerbation, 2 stable chronic or 1 acute illness add add modifier 95 for video, (do not use for phone, instead use 85557-91) [id number] 2023-11-25 No Data Available No Data Availa [...] ble Advance care planning discussed and documented advance care plan or surrogate decision-maker was [...] 95 for video, modifier 93 for phone [id number] 2025-01-17 No Data Available No Data Availa ble Medications prescribed in hospital were reviewed and reconciled against what they were taking prior to admission during today's visit. (1111F) 1111F 2025-01-17 No Data Available No Data Availa ble Advance care planning discussed and documented advance care plan or surrogate decision-maker was [...] 95 for video, modifier 93 for phone [id number] 2025-01-30 No Data Available No Data Availa ble Medications prescribed in hospital were reviewed and reconciled against what they were taking prior to admission during today's visit. (1111F) 1111F 2025-01-30 No Data Available No Data Availa ble Estab. patient 10-29min; 1 minor problem; add add modifier 95 for video, modifier 93 for phone [id number] 2025-03-22 No Data Available No Data Availa ble Estab. patient 10-29min; 1 minor problem; add add modifier 95 for video, modifier 93 for phone [id number] 2025-04-14 No Data Available No Data Availa ble [...] about falling? Yes DME used with ambulation: Matthewgurvindermoses 02-17-03 Social Supports - # of Inter actions with Friends/Family in a typical week: daughter 2025-01-17 Mental Status No Information Assessments Date of Service Assessments 2022-11-05 10:33:01 Rheumatoid polyneuro gregor with rheumatoid arthritis of unspecified siteAtherosclerosis of renal artery, Atherosclerosis of [place] arteries of extremities with intermittent claudication, bilateral legsHx of renal calculi 2022-12-02 12:17:08 Arthritis of left up per armHx of renal calculi 2023-01-25 09:24:51 Follow up plan for kimberly barrow symptoms: F/U PCPShortness of breath with cough 2023-07-25 08:46:34 <Fully document all Diagnosis>Rheumatoid polyneuropathy with rheumatoid arthritis of unspecified siteAtherosclerosis of renal artery, Atherosclerosis of [place] arteries of extremities with intermittent claudication, bilateral legsHx of renal calculiHx of cholecystectomyAsthmaGlaucomaCataracts, bilateralImmunodeficiency due to drugsChronic obstructive pulmonary disease, unspecifiedObesity (BMI 30.0-34.9)Arthritis of left upper armHx of renal calculiShortness of breath with cough 2023-09-30 07:29:04 Rheumatoid polyneuro gregor with rheumatoid arthritis of unspecified siteAtherosclerosis of renal artery, Atherosclerosis of [place] arteries of extremities with intermittent claudication, bilateral legsHx of renal calculiHx of cholecystectomyAsthmaGlaucomaCataracts, bilateralImmunodeficiency due to drugsChronic obstructive pulmonary disease, unspecifiedObesity (BMI 30.0-34.9)Arthritis of left upper armHx of renal calculiShortness of breath with coughCellulitis 2023-11-25 11:48:09 Other problems relat ed to medical facilities and other health careRheumatoid polyneuropathy with rheumatoid arthritis of unspecified siteAtherosclerosis of renal artery, Atherosclerosis of [place] arteries of extremities with intermittent claudication, bilateral legsGlaucomaCataracts, bilateralImmunodeficiency due to drugsChronic obstructive pulmonary disease, unspecifiedObesity (BMI 30.0-34.9)Arthritis of left upper armOther problems related to medical facilities and other health careAtherosclerosis of renal artery, Atherosclerosis of [place] arteries of extremities with intermittent claudication, bilateral legs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PVD (peripheral vascular disease)EczemaMixed hyperlipidemia due to type 2 diabetes mellitus 2025-01-17 08:37:23 Rheumatoid polyneuro gregor with rheumatoid arthritis of unspecified siteImmunocompromisedAtherosclerosis of renal artery, Atherosclerosis of [place] arteries of extremities with intermittent claudication, bilateral [...] to medical facilities and other health care 2025-03-22 08:42:29 Goals of care, couns eling/discussionOther problems related to medical facilities and other health careRheumatoid polyneuropathy with rheumatoid arthritis of unspecified siteImmunocompromised 2025-04-14 15:07:06 Follow up plan for kimberly nehemiahza symptoms: 04/17/25 at 2:15 with APPConstipation Plan of Care Date of Service Plans [...] foodActivity as toleratedRecently passed a kidney stone, 11/0346Fvvgyubn3/tableAdvair,Albuterol PRN,Montelukast.ophtho consult coing up in Januaryophtho consult [...] foodActivity as toleratedRecently passed a kidney stone, 11/0300Vissyphq2/24/2022tableAdvair,Albuterol PRN,Montelukast.ophtho consult coing up in Januaryophtho consult [...] modifier 95Advance care planning discussed and documented advance care plan or surrogate decision-maker was [...] call CBContinue to see PCP. Follow-up with [facility] as [...] smoking.keep skin hydrated triamcinolone PRN Eosinophil count [id number] 08/19/23not on any medication Advised to eat [...] medication listAdvance care planning discussed and documented advance care plan or surrogate decision-maker was [...] take the proper dosage on time.01/17/2025 sees medical science liaison yearly01/17/2025 no need for surgery yet , monitored yearlyRx: nitro, clopidogrel Choose heart-healthy foods, Aim for a healthy weight, Be physically activity, Manage stress, Quit smoking, and Get enough good-quality sleep.01/17/2025 patient had [place] while on vacation on a [place] earlier this year sees personal care assistant yearlyRx: gabapentin elevate and massage legsrecommend compression [...] techniques, and weight loss. 01/17/2025 patient sees trauma registrar every 3-6 monthsRx: carvedilolMonitor BP routinely, low [...] will see her pcpWOUND CONTINGENCY PLANLast updated: 01/17/2025[facility] to call for the following symptoms: Fever/ HR >100 / Increased wound size / Wound bleeding/ Wound drainagePlanned intervention: Ensure appropriate [...] or disease education needs that may arise 09/05.[facility]. 01/19-01/20/25. Acute abdominal pain, gastritis. D/C home . No changes to medication; Patient feels wellWOUND CONTINGENCY PLANLast updated: 01/17/2025Banner to call for the following symptoms: Fever/ HR >100 / Increased wound size / Wound bleeding/ Wound drainagePlanned intervention: Ensure appropriate offloading of wound/ Encourage increased fluid intake/ MRSA Suspected - Bactrim DS BID x7d/ Take Tylenol for pain or feverABDOMINAL PAIN CONTINGENCY PLANLast updated: 01/30/2025[facility]anner to call for the following symptoms: Abdominal pain/ Constipation/ Diarrhea/ Nausea/ VomitingPlanned intervention: Advise to avoid eating for 24 hours for bowel rest/ Increase intake of water / Two prunes or a glass of prune or apple juice / Senna or Dulcolax two tabs po / Famotidine 40mg daily/ Phenergan 25mg PO q6h as needed 2025-03-22 08:42:29 Estab. patient 10-29 min; 1 minor problem; add add modifier 95 for video, modifier 93 for phoneContinue to see PCP. [facility] acute or disease education needs that may arise 09/05.03/22/25: Patient confirmed HCP assigned son/daughter and desire to be a full code status. She is aware of her prognosis but she has moderate insight regarding her prognosis. 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 She lives with her daughter and she would like to continue to have quality of care.WOUND CONTINGENCY PLANLast updated: 01/17/2025[facility] to call for the following symptoms: Fever/ HR >100 / Increased wound size / Wound bleeding/ Wound drainagePlanned intervention: Ensure appropriate offloading of wound/ Encourage increased fluid intake/ MRSA Suspected - Bactrim DS BID x7d/ Take Tylenol for pain or feverABDOMINAL PAIN CONTINGENCY PLANLast updated: 01/30/2025[facility]anner to call for the following symptoms: Abdominal pain/ Constipation/ Diarrhea/ Nausea/ VomitingPlanned intervention: Advise to avoid eating for 24 hours for bowel rest/ Increase intake of water / Two prunes or a glass of prune or apple juice / Senna or Dulcolax two tabs po / Famotidine 40mg daily/ Phenergan 25mg PO q6h as neededMethotrexare, taking fewer (6) tabs than prescribed (8),- stretching, range of motion exercise such as ( walking , cycling, or water exercise). rest when in pain exacerbation 01/17/2025 patients is on hold with medication right now due to interaction with abx. patient josé RA specialist 01/14/2025 and she was referred to pain management. has an appointment with pain management 01/31/2025 03/21/25: Reports back pain exacerbation, taking PRN gabapentin with good effect. 2025-04-14 15:07:06 Televideo 10-29min; 1 minor problem; add add modifier 95 for video, modifier 93 for phoneContinue to see PCP. Follow-up with [facility] as needed for any acute or disease education needs that may arise 09/05.04/14/25: Rx: Lactulose 10 GM/15ML Solution-30 ml ONCE DAILY NEEDED FOR CONSTIPATION. Advised to increase fluids and fiber intake (eat prunes or prune juice daily). Take OTC MiraLAX, Senna-S or Dulcolax, Dulcolax suppository. Contact [facility] 09/05 for any new, worsening or continued symptoms of increased abdominal pain. Goals Date Goal 2025-01-17 At least 50% of time spent counseling pt, discussing diagnosis, treatment plan, compliance, and coordinating followup care. Continue taking medications as directed and keep all follow up appointments with established PCP and Specialist Health Concerns Date Concern 2025-04-14 Patient/Guardian agr eed to visit via telehealth.Visit completed via: [ ] audio and video; [x] audio only 2025-04-14 Concerns for today's visit: constipationSummary: Language line used for this visit. Member reports she has not had a bowel movement in 11 days, abdominal pain and at that time she had diarrhea. She has been taking Senna with no results. Denies nausea, vomiting or any other complications at this time. 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 2025-04-14 Most recent hospital stay or ER visit:No ER visits or hospitalizations documented in [facility] in last 90 days. Member denies ER visits or hospitalizations in last 90 days.
[2025-04-25 11:04] VITALS: BMI 33.2
== END 2025-04-16 12:16 | disposition home or self-care (01) ==
LOC: HO.ENCR 11:04
PROVIDERS: PCP Internal Medicine; Visit Provider Dietitian, Registered
DX: I25.10 Atherosclerotic heart disease of native coronary artery without angina pectoris (principal)

== ENCOUNTER → 2025-04-16 11:04 | Outpatient (BNVA) | payer OTHER, SELFPAY | PROVIDERS: PCP Internal Medicine; Visit Provider Dietitian, Registered | DX: Z71.3 Dietary counseling and surveillance (principal); I25.10 Atherosclerotic heart disease of native coronary artery without angina pectoris | CPT/HCPCS: 97802 ==

== ENCOUNTER 2025-05-09 14:29 | Outpatient (REF) | payer OTHER, SELFPAY ==
--- NOTE | ~2025-05-09 | XR_ITS ---
EXAMINATION: XR CHEST CLINICAL INFORMATION: R07.9 - Chest pain, unspecified COMPARISON: 12/07/2024 TECHNIQUE: 2 views of the chest were obtained. FINDINGS: Reverse arthroplasty left shoulder is again noted and stable. Linear density in the lateral aspect of the mid third left lung and lower left lung are similar to the prior. Lungs are clear otherwise. There is no pleural effusion. Changes from kyphoplasty noted at T12. XR/XR chest 2V IMPRESSION: Chronic linear scarring in the right mid and lower lung zones. No acute disease. Reverse arthroplasty, left shoulder Electronically signed by: Wild Saleh MD 05/09/2025 03:36 PM EDT
== END 2025-05-09 14:30 | disposition home or self-care (01) ==
LOC: HO.XRAY 14:29
PROVIDERS: PCP Internal Medicine; Visit Provider Hospitalist
DX: J45.30 Mild persistent asthma, uncomplicated (principal); R06.02 Shortness of breath; R07.81 Pleurodynia; R13.10 Dysphagia, unspecified; J30.9 Allergic rhinitis, unspecified; J98.11 Atelectasis; M79.89 Other specified soft tissue disorders; M54.6 Pain in thoracic spine; Z87.891 Personal history of nicotine dependence; Z95.5 Presence of coronary angioplasty implant and graft; Z79.51 Long term (current) use of inhaled steroids; Z79.631 Long term (current) use of antimetabolite agent
CPT/HCPCS: 71046; 99212

== ENCOUNTER 2025-05-09 14:29 | Outpatient (AMB) | payer OTHER, SELFPAY ==
--- OUTSIDE RECORDS SUMMARY | 2025-05-04 23:59 | XMS_ITS | Continuity of Care Document ---
Author Organization [facility] Address [address] [place] [id number] Care Team Providers Care Soft Boarder Name Role Phone Jose CABRERA, Jeni Rose Primary Care Physician Encounter [facility] NBR [id number] Date(s): 04/03/25 - 05/04/25 [facility] [address] [place] [id number] Attending Physician: Steve CHAU, Aliya Noonan Admitting Physician: Steve CHAU, Aliya Noonan Encounter Type: Pre Office Visit Allergies, Adverse Reactions, Alerts Substance Criticality Severity Reaction Reaction Severity Status morphine dizzy nausea Active Percocet 5/ rash Activ e codeine Anaphylaxis dizzy nausea Active Immunizations Given and Recorded Vaccine Date Status [...] Date: 03/09/22 Status: Ordered Repeat number: 1 Advair Diskus 100 mcg-50 mcg inhalation powder 1, inhalation, Inhalation, 2 times a day, rinse mouth and throat after use, Refills 0, Maintenance,04/04/25 10:36:00 PM EDT, Powder Start Date: 04/04/25 Status: Ordered Repeat number: 1 aspirin 81 mg oral delayed release tablet 1 tablet = 81 mg, By Mouth, Daily, # 30 tablet, 5 Refills, Maintenance, 10/31/24 4:32:00 PM EST, [facility]/pharmacy #[id number], Partial fill upon patient request if the prescription is for a schedule II opioid drug., 150, cm, 10/31/24 13:29:00 EST, Height, 80.1, kg, 11/03/22 18:55:00 EST, Dry Weight Start Date: 10/31/24 Stop Date: 04/29/25 Status: Ordered Quantity: 30.0 Unit: tablet Repeat number: 6 Indications: Chronic vascular disorders of intestine; atorvastatin 80 mg oral tablet 1 tablet = 80 mg, By Mouth, Daily, # 90 tablet, 0 Refills, Maintenance, 04/05/25 1:01:00 AM EDT, Tablet, Partial fill upon patient request if the prescription is for a schedule II opioid drug. Start Date: 04/05/25 Status: Ordered Quantity: 90.0 Unit: tablet Repeat number: 1 carvedilol 6.25 mg oral tablet 6.25 mg, 1, tablet, By Mouth, 2 times a day, # 60 tablet, Refills 0, Maintenance, 03/28/25 10:49:00 AM EDT, Partial fill upon patient request if the prescription is for a schedule II opioid drug. Start Date: 03/28/25 Status: Ordered Quantity: 60.0 Unit: tablet Repeat number: 1 clopidogrel 75 mg oral tablet 75 mg, 1, tablet, By Mouth, Daily, # 90 tablet, Refills 0, Tot. Refills 0, Maintenance, 03/29/25 2:37:00 PM EDT, Route to Pharmacy Electronically, [facility]/pharmacy #[id number], Partial fill upon patient requestif the prescription is for a schedule II opioid drug., 150, cm, 02/28/25 10:57:00 EDT, Height, 79.3, kg, 03/28/25 18:08:00 EDT, Dry Weight Start Date: 03/29/25 Status: Ordered Quantity: 90.0 Unit: tablet Repeat number: 1 ferrous sulfate 160 mg oral tablet, extended release 1 tablet = 160 mg, By Mouth, Daily, # 90 tablet, 0 Refills, Maintenance, 04/05/25 1:24:00 PM EDT, ERTablet, [facility], Partial fill upon patient request if the prescription is for a schedule II opioid drug., 153, cm, 04/05/25 10:07:00 EDT, Height, 80, kg, 04/04/25 22:48:00 EDT, Dry Weight Start Date: 04/05/25 Status: Ordered Quantity: 90.0 Unit: tablet Repeat number: 1 fluticasone 50 mcg/inh nasal spray 1 sprays = 50 mcg, Nares, Both, 2 times a day, # 16 Gm, 0 Refills, Maintenance, 04/04/25 9:55:00 PM EDT, Story, Partial fill upon patient request if the prescription is for a schedule II opioid drug. Start Date: 04/04/25 Status: Ordered Quantity: 16.0 Unit: g Repeat number: 1 Folic Acid Tablet 1 mg, By Mouth, Daily, Maintenance, 02/09/11 2:36:38 PM EDT Start Date: 02/09/11 Status: Ordered Repeat number: 1 gabapentin 100 mg oral capsule 100 mg, 1, capsule, By Mouth, 3 times a day, # 90 capsule, Refills 5, Tot. Refills 5, Maintenance, 03/17/22 10:22:00 PM EDT, Route to Pharmacy Electronically, [facility]/pharmacy #[id number], Partial fill upon patient request if the prescription is for a schedule II opioid drug., 149.9, cm, 03/09/22 15:36:00 EDT,Height, 86.6, kg, 08/22/21 18:21:00 EDT, Dry Weight Start Date: 03/17/22 Status: Ordered Quantity: 90.0 Unit: capsule Repeat number: 6 hydrochlorothiazide-olmesartan 12.5 mg-40 mg oral tablet TAKE 1 TABLET BY MOUTH ONCE PER DAY. SP CAD/DC LOSARTAN Start Date: 04/04/25 Status: Ordered Repeat number: 1 levothyroxine 0.05 mg oral tablet 1 tablet [...] Date: 08/21/21 Status: Ordered Repeat number: 1 pantoprazole 40 mg oral delayed release tablet 0 Refills, Maintenance, 04/04/25 7:53:00 PM EDT Start Date: 04/04/25 Status: Ordered Repeat number: 1 ProAir HFA [...] Quantity: 1.0 Unit: each Repeat number: 1 Senexon-S 50 mg-8.6 mg oral tablet 2 tablet, By Mouth, Daily at bedtime, 0 Refills, Maintenance, 04/04/25 9:53:00 PM EDT, Partial fill upon patient request if the prescription is for a schedule II opioid drug. 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 Confirmed Active Osteopenia Confirmed Active Primary osteoarthritis of both knees Confirmed Active Right renal artery stenosis Confirmed Active Rheumatoid arthritis, adult Confirmed Active Sleep apnea Confirmed Active Celiac artery stenosis Confirmed Active Venous insufficiency Confirmed Active Social History Social History Type Response Smoking Status Never (less than 100 in lifetime) entered on: 04/04/25 Sex Sex Representation Female (finding) Patient Care team information Care Team Personnel Name: Jeni Garcia MD Position: [facility] Outreach Member Role: PCP Address: [address] [place] [address] Telecom: Name: Antoinette Ramos RN Position: S RN Member Role: Primary Care Nurse Name: Brooklyn Trimble RN Position: S RN Member Role: Primary Care Nurse Name: Nancy Aguilera RN Position: S RN Member Role: Primary Care Nurse Care Team Related Persons Name: JULIEN LAU Name: ELHAM LAU Insurance Providers Guarantor name: BRYAN Health Plan Information #: 1 Payer: [facility] OPT Payer Identifier: BRYAN Member Number: [id number] Group Number: [id number] Subscriber Identifier: [id number] Relationship to Subscriber: self Coverage Type: Medicare Managed Care (Includes Medicare Advantage Plans) Coverage Verification Date: BRYAN Telecom: Address:
[2025-05-09 14:35] VITALS: BP 154/60; PULSE 65; O2SAT 95; BMI 32.3
--- NOTE | 2025-05-09 14:35 | MHC.OFFVIS ---
Vital Signs 05/09/25 14:35 Height 4 ft 10 in Weight 154 lb 5.177 oz BMI 32.3 BP 154/60 H Blood Pressure Location Lt brachial Position Sitting Pulse 65 Pulse Source Pulse Oximeter Pulse Oximetry (%) 95 Oxygen Delivery Method Room Air Intake Visit Reasons: asthma Allergies codeine (CODEINE) Allergy (Mild, Verified 05/09/25 14:38) Rash morphine (MORPHINE) Allergy (Mild, Verified 05/09/25 14:38) Hallucinations oxycodone (Percocet) Allergy (Mild, Verified 05/09/25 14:38) Hives tramadol Adverse Reaction (Severe, Verified 05/09/25 14:38) Headache HPI Comments Details: The patient is a 80-year-old woman with a known history of asthma and chronic rhinitis. overall she has been doing well with the current respiratory regimen. She has not had to use her rescue inhaler more than twice a week. She does have significant rheumatoid arthritis and has been on methotrexate. we did review her last chest x-ray demonstrating some mild atelectasis of the left base. Her PFTs also demonstrated mild restrictive lung disease. Therefore, we need to follow closely any changes while she is on the methotrexate. Otherwise she is doing very well on the current respiratory regimen. She does have some shortness of breath with activity but is mild. her acid reflux appears to be more controlled on the current medication and she is trying to maintain reflux diet along with sleeping elevated. She does take allergy medicine with good effect. 12/31/2021 the patient is here for a pulmonary follow-up visit. Overall she is feeling well. Her breathing has improved and also her volume status has also improved. She continues on methotrexate. This is helping her significantly. She is not taking the 8 tablets a week she is actually taking just 6 tablets. She is to be enough to keep her stable. In the meantime her lower extremity edema has improved. I did review her chest x-ray that she had back in September demonstrating some persistent atelectasis to the left base. I also reviewed her CT scan that she had back in May 2021 demonstrating again areas of atelectasis and less likely pneumonitis. Primarily at the left lung. Will continue to monitor closely her imaging with repeat x-ray in months. Patient is to continue with current therapy. If any issues she is to call for an earlier evaluation. 10/28/2022 the patient is here for a pulmonary follow-up visit. The patient continues to do well. Back in the fall she did have a flare-up of her asthma. She had to use her nebulizer machine a few times a day. Although, she did not need any prednisone. She continues on the methotrexate. She is actually just taking 6 tablets weekly. She is following closely with blood work through the [facility]. She did have a repeat chest x-ray which I personally reviewed. Still has some areas of atelectasis. Also has likely some increased attenuation primarily due to soft tissue but I do not see any evidence of any active lung disease. Will wait for the final read of the x-ray. In the meantime the patient should be on a maintenance inhaler. She had been on Spiriva 4. Will go ahead and switch her to Advair HFA to see if she has a better response. The patient also does not do well with powdered inhalers. 05/02/2023 the age the patient is here for pulmonary follow-up visit. Overall the patient has been doing well. She continues on the methotrexate. No evidence of any adverse effects. The patient has been using her Advair HFA seems to be working well for her. She has a rescue inhaler that she had not had to use. She is no longer using the Spiriva. Her last chest x-ray was back in October or in the winter time demonstrating some atelectasis but stable. Will plan to do a repeat chest x-ray when she comes back in the springtime. The patient is recovering from her shoulder surgery. She had no issues with anesthesia and currently recovering well. 10/31/2023 the patient is here for pulmonary follow-up visit. Since we last spoke the patient was admitted to [facility] back in the fall with pneumonia. She was told she had fluid around the lungs and also the heart. The subsequent lab got better. Then she developed issues with lower extremity edema and swelling primarily the left lower extremity. She has significant inflammation and redness consistent with cellulitis. She was briefly admitted to the hospital. She completed a course of antibiotics but she does not know the name. At this point the areas getting red and warm again tender. She looks like she is getting recurrent cellulitis. She understands that the lower extremity edema becomes an issue with dermatitis and her scratching and the recurrent infections in the fact that she is on immunosuppressant therapy. Therefore, will give her a course of doxycycline to avoid further spread. The patient also will talk to her primary care doctor about her medications. The amlodipine may be aggravating the lower extremity edema. She may need also additional diuretics. She has a hard time with the compression socks. As far as her lungs she has been doing well now with the Advair. She recovered from the pneumonia and will go ahead and treat her with the Prevnar 20 pneumonia vaccine. In addition to that the patient should get a repeat x-ray to make sure that she does not have any residual changes from her pneumonia. Clinically her respiratory exam is stable and her respiratory exam is also reassuring. 05/04/2024 the patient is here for a pulmonary follow-up visit. Overall the patient is doing well. She does complaint of possible aches and pains. She has some back pain and at times knee pain. She does use her inhalers as prescribed. The patient is on methotrexate once a week with good response. She is not taking any prednisone she does not like do a makes it feel. As far as pain she has gabapentin that she uses at needed just small dose at nighttime because it makes her dizzy. She was evaluated for her back pain in the hospital. She had an x-ray without any acute disease. In addition to that she had an abdominal or CT scan demonstrating no acute disease either. No parenchymal involvement no pleural involvement. The back pain is very much associated with the paraspinal area. It is very tender to the touch. The patient did respond well to Flexeril. I will send her another prescription to the pharmacy. 12/10/2024 the patient is here for pulmonary follow-up visit. Overall she is doing okay. Although beginning of the month she did develop significant fevers in Rachael addition to respiratory complaints. She came into the hospital she was diagnosed with influenza a. She was discharged home. Then she is tired doctor started antibiotics for postviral back serial bronchitis. In the meantime she stopped the methotrexate. She did have a chest x-ray which I personally reviewed demonstrating the interstitial changes. Will have to get a repeat x-ray at some point to follow-up with it. But clinically she is feeling well this time. She is completing her antibiotics at this time. She continues use her respiratory therapy with good effect. Therefore will continue her current respiratory therapy will follow-up in 6 months unless she does not feel that she can call for an earlier assessment. 05/09/2025 the patient is here for a pulmonary follow-up visit. Since we last spoke she was on a cruise and was complicated by her having a heart attack. She was admitted to a hospital in [facility] and there she underwent a stent placement. She was placed on cardioprotective medications and she is now recovering. 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 She did undergo a stent placement. Although now she is having some difficulty swallowing. She has had significant amount of weight loss. She also complains of some pleuritic chest pain. [id number] severity. Her inhaler therapy has been affecting beneficial. She is having some difficulty with dysphagia and swallowing. Will request a barium swallow at this time. In the meantime the patient will continue with the current respiratory medications. COUNT INCLUDES THE [facility] Medical History (Updated 05/12/25 @ 23:05 by Frederick Gerardo MD) Dysphagia Pleural effusion Cellulitis Limb swelling Chest pain Asthma Chronic allergic rhinitis Atelectasis of left lung Family History Father Lung cancer Mother Throat cancer Social History Patient Tobacco Use Status: Former Tobacco user Tobacco use type: Cigarette Years Smoked: 4 years Review of Systems Const Denies chills, Denies fatigue, Denies fever(s), Denies weight gain and Denies weight loss ENT Denies dizziness, Denies lip swelling and Denies tongue swelling Card Denies chest pain, Denies leg edema, Denies lightheadedness, Denies palpitations, Denies dyspnea on exertion, Denies orthopnea and Denies other Resp Denies cough and Denies dyspnea on exertion GI Denies hematochezia and Denies change in stool character Musc Denies abnormal gait, Denies muscle weakness, Denies numbness, Denies radiating pain into limb and Denies tingling Skin/Breast Reports pruritus, Reports erythema, Reports skin pain and Reports skin swelling Neuro Denies abnormal gait, Denies dizziness, Denies numbness and Denies tingling Psych Denies no additional complaints Endo Denies fatigue and Denies palpitations Danny/Lymph Denies easy bleeding and Denies lymphadenopathy Aller/Immun Denies lip swelling and Denies tongue swelling Physical Exam Vital Signs: Last Vital Signs Pulse 65 05/09/25 14:35 BP 154/60 H 05/09/25 14:35 Pulse Ox 95 05/09/25 14:35 Oxygen Delivery Method Room Air 05/09/25 14:35 BMI result Body Mass Index 32.3 Const General: alert Neck Neck: Yes normal visual inspection, Yes full ROM and Yes no lymphadenopathy Chest Chest palpation & inspection: normal inspection of the chest Resp Effort & Inspection: normal respiratory effort Auscultation: no rales and diminished lung sounds Cardio Rate: regular rate Rhythm: regular rhythm Heart sounds: S1 normal heart sound present and S2 normal heart sound present GI Palpation (GI): Soft to palpation and nontender Auscultation: normal bowel sounds Skin General skin exam: no rashes or lesions noted Extrem General: No edema Assessment & Plan Assessment & Plan (1) Chronic allergic rhinitis: Code(s): J30.9 - Allergic rhinitis, unspecified Category: Medical (2) Atelectasis of left lung: Comment: Currently on Methotrexate Code(s): J98.11 - Atelectasis Category: Medical (3) Asthma: Code(s): J45.909 - Unspecified asthma, uncomplicated Category: Medical Qualifiers: Asthma complication type: uncomplicated Asthma persistence: persistent Asthma severity: mild Qualified Code(s): J45.30 - Mild persistent asthma, uncomplicated (4) Limb swelling: Code(s): M79.89 - Other specified soft tissue disorders Category: Medical (5) Back pain: Code(s): M54.9 - Dorsalgia, unspecified Category: Medical Qualifiers: Back pain laterality: unspecified Back pain location: thoracic back pain Chronicity: unspecified Qualified Code(s): M54.6 - Pain in thoracic spine (6) Dysphagia: Code(s): R13.10 - Dysphagia, unspecified Category: Medical Qualifiers: Dysphagia type: unspecified Qualified Code(s): R13.10 - Dysphagia, unspecified (7) Chest pain: Code(s): R07.9 - Chest pain, unspecified Category: Medical Qualifiers: Chest pain type: unspecified Qualified Code(s): R07.9 - Chest pain, unspecified Plan Short-acting beta agonist as needed continue singular continue Advair HFA continue methotrexate. complete antibiotics barium swallow CXR F/U 6-8 months Orders: Orders FL barium swallow 05/09/25 R13.10 - Dysphagia, unspecified XR chest 2V 05/09/25 R07.9 - Chest pain, unspecified Coding Level of Care Code Est Pt Level 4 (03435) Complex EM visit Add On G2211 Diagnoses Chronic allergic rhinitis J30.9 Atelectasis of left lung J98.11 Mild persistent asthma without complication J45.30 Asthma complication type: uncomplicated Asthma persistence: persistent Asthma severity: mild Limb swelling M79.89 Thoracic back pain, unspecified back pain laterality, unspecified chronicity M54.6 Back pain laterality: unspecified Back pain location: thoracic back pain Chronicity: unspecified Dysphagia, unspecified type R13.10 Dysphagia type: unspecified Chest pain, unspecified type R07.9 Chest pain type: unspecified Time Spent (min) 17
--- OUTSIDE RECORDS SUMMARY | 2025-05-09 14:40 | XMS_ITS ---
Author Name Catracho Love NP Address [address] [place] [address] Phone [phone] [facility] Care Team Providers Care Buffet Runner Name Role Phone LoveRogerio harriscatrinakalin Unavailable [phone] Jeni Garcia Unavailable [phone] Unavailable Unavailable [phone] Unavailable Unavailable [phone] Unavailable Unavailable [phone] Reason for Referral Not Available Allergies, adverse [...] take the proper dosage on time.01/17/2025 sees pattern grader yearly Cataracts, bilateral Active 2022-11-05 N/A 2024 [...] techniques, and weight loss. 01/17/2025 patient sees laundry marker supervisor every 3-6 months Rheumatoid polyneuropathy wi th [...] effect. 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 01/19-01/20/25. Acute abdominal pain, gastritis. D/C [...] MiraLAX, Senna-S or Dulcolax, Dulcolax suppository. Contact [facility] 09/05 for any new, worsening or continued symptoms of increased abdominal pain. Encounters Encounters Type Facility Date of Service Diagnosis/Co mplaint New patient,40-59min; chronic exacerbation, 2 stable chronic or 1 acute illness add add modifier 95 for video (do not use for phone, instead use 18443-54) [facility] [place] Rheumatoid polyneurop w rheu matoid arthritis of unsp siteAtherosclerosis of renal arteryAthscl stony river arteries of extrm w intrmt nilesh, bi legsPersonal history of urinary calculi New patient,40-59min; chronic exacerbation, 2 stable chronic or 1 acute illness add add modifier 95 for video (do not use for phone, instead use 61809-56) [facility] [place] New patient,40-59min; chronic exacerbation, 2 stable chronic or 1 acute illness add add modifier 95 for video (do not use for phone, instead use 21515-47) [facility] [place] New patient,40-59min; chronic exacerbation, 2 stable chronic or 1 acute illness add add modifier 95 for video (do not use for phone, instead use 22172-38) [facility] [place] New patient,40-59min; chronic exacerbation, 2 stable chronic or 1 acute illness add add modifier 95 for video (do not use for phone, instead use 07965-73) [facility] [place] New patient,40-59min; chronic exacerbation, 2 stable chronic or 1 acute illness add add modifier 95 for video (do not use for phone, instead use 05247-62) [facility] [place] No Data Available [facility] [place] Primary osteoarthritis, left elbowPersonal history of urinary calculi No Data Available [facility] [place] No Data Available [facility] [place] No Data Available [facility] [place]2023 Shortness of breathCough, unspecified Estab. patient 20-29min; 1 stable chronic or 2 minor; add add modifier 95 for video, modifier 93 for phone [facility] [place] 07[place]2023 Rheumatoid polyneurop w rheu matoid arthritis of unsp siteAtherosclerosis of renal arteryAthscl stony river arteries of extrm w intrmt nilesh, bi legsPersonal history of urinary calculiAcquired absence of other specified parts of digestive tractUnspecified asthma, uncomplicatedUnspecified glaucomaUnspecified cataractImmunodeficiency due to drugsOther [place] [facility] (current) drug therapyChronic obstructive pulmonary disease, unspecifiedObesity, unspecifiedBody mass index (BMI) 35.0-35.9, adultPrimary osteoarthritis, left elbowShortness of breathCough, unspecified Estab. patient 20-29min; 1 stable chronic or 2 minor; add add modifier 95 for video, modifier 93 for phone [facility] [place] Estab. patient 20-29min; 1 stable chronic or 2 minor; add add modifier 95 for video, modifier 93 for phone [facility] [place] Estab. patient 20-29min; 1 stable chronic or 2 minor; add add modifier 95 for video, modifier 93 for phone [facility] [place] Estab. patient 20-29min; 1 stable chronic or 2 minor; add add modifier 95 for video, modifier 93 for phone [facility] [place] Estab. patient 20-29min; 1 stable chronic or 2 minor; add add modifier 95 for video, modifier 93 for phone [facility] [place] 07/[place]23 No Data Available [facility] [place]2023 Chronic obstructive pulmonar y disease, unspecifiedRheumatoid polyneurop w rheumatoid arthritis of unsp siteAtherosclerosis of renal arteryAthscl stony river arteries of extrm w intrmt nilesh, bi legsImmunodeficiency due to drugsPersonal history of urinary calculiAcquired absence of other specified parts of digestive tractUnspecified asthma, uncomplicatedUnspecified glaucomaUnspecified cataractOther [place] [facility] (current) drug therapyObesity, unspecifiedBody mass index (bmi) 34.0-34.9, adultPrimary osteoarthritis, left elbowShortness of breathCough, unspecifiedCellulitis, unspecified No Data Available [facility] [place]2023 No Data Available [facility] [place]23 No Data Available [facility] [place] 09/[place]/2023 RN, CN or CP time with patient by phone; use with 1111F, BP, A1c or other CPTII codes [facility] [place] 09/26/2023 Encounter for other specifie d aftercare RN, CN or CP time with patient by phone; use with 1111F, BP, A1c or other CPTII codes [facility] [place] 09/26/2023 Estab. patient 30-39min; chronic exacerbation, 2 stable chronic or 1 acute illness add add modifier 95 for video, (do not use for phone, instead use 01721-04) [facility] [place]2023 Rheumatoid polyneurop w rheu matoid arthritis of unsp siteAtherosclerosis of renal arteryAthscl stony river arteries of extrm w intrmt nilesh, bi legsUnspecified glaucomaUnspecified cataractImmunodeficiency due to drugsOther petroleum terminal plant operator (current) drug therapyChronic obstructive pulmonary disease, unspecifiedObesity, unspecifiedPrimary osteoarthritis, left elbowOther problems related to medical facilities and other health careAthscl heart disease of stony river cor art w unstable ang pctrsPeripheral vascular disease, unspecifiedDermatitis, unspecifiedType 2 diabetes mellitus with other specified complicationMixed hyperlipidemia Estab. patient 30-39min; chronic exacerbation, 2 stable chronic or 1 acute illness add add modifier 95 for video, (do not use for phone, instead use 02850-72) [facility] [place] Estab. patient 30-39min; chronic exacerbation, 2 stable chronic or 1 acute illness add add modifier 95 for video, (do not use for phone, instead use 22128-90) [facility] [place]23 Estab. patient 30-39min; chronic exacerbation, 2 stable chronic or 1 acute illness add add modifier 95 for video, (do not use for phone, instead use 55457-49) [facility] [place] Estab. patient 30-39min; chronic exacerbation, 2 stable chronic or 1 acute illness add add modifier 95 for video, (do not use for phone, instead use 52814-42) [facility] [place]23 Estab. patient 30-39min; chronic exacerbation, 2 stable chronic or 1 acute illness add add modifier 95 for video, (do not use for phone, instead use 71975-66) [facility] [place]23 Estab. patient 30-39min; chronic exacerbation, 2 stable chronic or 1 acute illness add add modifier 95 for video, (do not use for phone, instead use 28789-06) [facility] [place]23 Estab. patient 30-39min; chronic exacerbation, 2 stable chronic or 1 acute illness add add modifier 95 for video, (do not use for phone, instead use 14937-84) [facility] [place]23 Estab. patient 30-39min; chronic exacerbation, 2 stable chronic or 1 acute illness add add modifier 95 for video, (do not use for phone, instead use 73781-60) [facility] [place]2023 Estab. patient 30-39min; chronic exacerbation, 2 stable chronic or 1 acute illness add add modifier 95 for video, (do not use for phone, instead use 60289-91) [facility] [place] Estab. patient 30-39min; chronic exacerbation, 2 stable chronic or 1 acute illness add add modifier 95 for video, (do not use for phone, instead use 19956-95) [facility] [place]23 Estab. patient 10-29min; 1 minor problem; add add modifier 95 for video, modifier 93 for phone [facility] [place] 01/17/2025 Type 2 diabetes mellitus wit h diabetic chronic kidney diseaseChronic kidney disease, stage 3 unspecifiedType 2 diabetes w diabetic peripheral angiopath w/o gangreneAthscl stony river arteries of extrm w intrmt nilesh, bi legsType 2 diabetes mellitus with other specified complicationMixed hyperlipidemiaRheumatoid polyneurop w rheumatoid arthritis of unsp siteAthscl heart disease of [place] river cor art w unstable ang pctrsUnspecified atrial [...] 95 for video, modifier 93 for phone [facility] [place] Estab. patient 10-29min; 1 minor problem; add add modifier 95 for video, modifier 93 for phone [facility] [place] 01/17/2025 Estab. patient 10-29min; 1 [...] tive Time Current Smoking Status Former smoker 2025-04-17 4 Sex Female Gender identity Woman History of Procedures Procedures Service Procedure code Service date Servicing provider Phone# New patient,40-59min; chronic exacerbation, 2 stable chronic or 1 acute illness add add modifier 95 for video (do not use for phone, instead use 46861-00) 37999 2022-11-05 No Data Available No Data Availa [...] le No Data Available No Data Available [id number] 2022-12-02 No Data Available No Data Available Medication List Documented (1159F) 1159F 2022-12-02 No Data Available No Data Lucretia ilable Pain Assessment - Pain Documented on a Pain Scale (1125F) 1125F 2022-12-02 No Data Available No Data Lucretia ilable No Data Available [id number] 2023-01-25 No Data Available No Data Available Estab. patient 20-29min; 1 stable chronic or 2 minor; add add modifier 95 for video, modifier 93 for phone 83403 2023-07-25 No Data Available No Data Availa [...] le No Data Available No Data Available [id number] 2023-09-30 No Data Available No Data Available [...] 1111F, BP, A1c or other CPTII codes 10926 2023-09-26 No Data Available No Data Avai lable Medications prescribed in hospital were reviewed and reconciled against what they were taking prior to admission during today's visit. (1111F) 1111F 2023-09-26 No Data Available No Data Availa ble Estab. patient 30-39min; chronic exacerbation, 2 stable chronic or 1 acute illness add add modifier 95 for video, (do not use for phone, instead use 65957-27) 87601 2023-11-25 No Data Available No Data Availa [...] 95 for video, modifier 93 for phone 19949 2025-01-17 No Data Available No Data Availa [...] 95 for video, modifier 93 for phone 04765 2025-01-30 No Data Available No Data Availa ble Medications prescribed in hospital were reviewed and reconciled against what they were taking prior to admission during today's visit. (1111F) 1111F 2025-01-30 No Data Available No Data Availa ble Estab. patient 10-29min; 1 minor problem; add add modifier 95 for video, modifier 93 for phone 89379 2025-03-22 No Data Available No Data Availa ble Estab. patient 10-29min; 1 minor problem; add add modifier 95 for video, modifier 93 for phone 12351 2025-04-14 No Data Available No Data Availa [...] unspecified siteAtherosclerosis of renal artery, Atherosclerosis of stony river arteries of extremities with intermittent claudication, bilateral legsHx of renal calculi 2022-12-02 12:17:08 Arthritis of left up per armHx of renal calculi 2023-01-25 09:24:51 Follow up plan for kimberly barrow symptoms: F/U PCPShortness of breath with cough 2023-07-25 08:46:34 <Fully document all Diagnosis>Rheumatoid polyneuropathy with rheumatoid arthritis of unspecified siteAtherosclerosis of renal artery, Atherosclerosis of st[place] river arteries of extremities with intermittent claudication, bilateral legsHx of renal calculiHx of cholecystectomyAsthmaGlaucomaCataracts, bilateralImmunodeficiency due to drugsChronic obstructive pulmonary disease, unspecifiedObesity (BMI 30.0-34.9)Arthritis of left upper armHx of renal calculiShortness of breath with cough 2023-09-30 07:29:04 Rheumatoid polyneuro gregor with rheumatoid arthritis of unspecified siteAtherosclerosis of renal artery, Atherosclerosis of st[place] river arteries of extremities with intermittent claudication, bilateral legsHx of renal calculiHx of cholecystectomyAsthmaGlaucomaCataracts, bilateralImmunodeficiency due to drugsChronic obstructive pulmonary disease, unspecifiedObesity (BMI 30.0-34.9)Arthritis of left upper armHx of renal calculiShortness of breath with coughCellulitis 2023-11-25 11:48:09 Other problems relat ed to medical facilities and other health careRheumatoid polyneuropathy with rheumatoid arthritis of unspecified siteAtherosclerosis of renal artery, Atherosclerosis of st[place] river arteries of extremities with intermittent claudication, bilateral legsGlaucomaCataracts, bilateralImmunodeficiency due to drugsChronic obstructive pulmonary disease, unspecifiedObesity (BMI 30.0-34.9)Arthritis of left upper armOther problems related to medical facilities and other health careAtherosclerosis of renal artery, Atherosclerosis of stony river arteries of extremities with intermittent claudication, bilateral legs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PVD (peripheral vascular disease)EczemaMixed hyperlipidemia due to type 2 diabetes mellitus 2025-01-17 08:37:23 Rheumatoid polyneuro gregor with rheumatoid arthritis of unspecified siteImmunocompromisedAtherosclerosis of renal artery, Atherosclerosis of stony river arteries of extremities with intermittent claudication, bilateral [...] foodActivity as toleratedRecently passed a kidney stone, 11/0329Rlasoqnr7/tableAdvair,Albuterol PRN,Montelukast.ophtho consult coing up in Januaryophtho consult [...] foodActivity as toleratedRecently passed a kidney stone, 11/0355Ajeivrgp0/24/2022tableAdvair,Albuterol PRN,Montelukast.ophtho consult coing up in Januaryophtho consult [...] smoking.keep skin hydrated triamcinolone PRN Eosinophil count xqotggE1h0.0 08/19/23not on any medication Advised to eat [...] take the proper dosage on time.01/17/2025 sees pattern grader yearly01/17/2025 no need for surgery yet , monitored yearlyRx: nitro, clopidogrel Choose heart-healthy foods, Aim for a healthy weight, Be physically activity, Manage stress, Quit smoking, and Get enough good-quality sleep.01/17/2025 patient had MT while on vacation on a cruise earlier this year sees technician assistant yearlyRx: gabapentin elevate and massage legsrecommend [...] techniques, and weight loss. 01/17/2025 patient sees laundry marker supervisor every 3-6 monthsRx: carvedilolMonitor BP routinely, low [...] see her pcpWOUND CONTINGENCY PLANLast updated: 01/17/2025[facility] to call for the following [...] or disease education needs that may arise 09/05.[facility]. 01/19-01/20/25. Acute abdominal pain, gastritis. D/C home . No changes to medication; Patient feels wellWOUND CONTINGENCY PLANLast updated: 01/17/2025[facility] to call for the following symptoms: Fever/ HR >100 / Increased wound size / Wound bleeding/ Wound drainagePlanned intervention: Ensure appropriate offloading of wound/ Encourage increased fluid intake/ MRSA Suspected - Bactrim DS BID x7d/ Take Tylenol for pain or feverABDOMINAL PAIN CONTINGENCY PLANLast updated: 01/30/2025[facility] to call for the following [...] for phoneContinue to see PCP. [facility] or [...] have quality of care.WOUND CONTINGENCY PLANLast updated: 01/17/2025[facility] to call for the following symptoms: Fever/ HR >100 / Increased wound size / Wound bleeding/ Wound drainagePlanned intervention: Ensure appropriate offloading of wound/ Encourage increased fluid intake/ MRSA Suspected - Bactrim DS BID x7d/ Take Tylenol for pain or feverABDOMINAL PAIN CONTINGENCY PLANLast updated: 01/30/2025[facility] to call for the following [...] for phoneContinue to see PCP. Follow-up with [facility] as needed for any acute or disease education needs that may arise 09/05.04/14/25: Rx: Lactulose 10 GM/15ML Solution-30 ml ONCE DAILY NEEDED FOR CONSTIPATION. Advised to increase fluids and fiber intake (eat prunes or prune juice daily). Take OTC MiraLAX, Senna-S or Dulcolax, Dulcolax suppository. Contact [facility] 09/05 for any new, worsening or [...] or any other complications at this time. principal programmer note reviewed. 2025-04-14 Most recent hospital stay or ER visit:No ER visits or hospitalizations documented in [facility] in last 90 days. Member denies ER visits or hospitalizations in last 90 days.
--- OUTSIDE RECORDS SUMMARY | 2025-05-09 14:41 | XMS_ITS | Clinical Summary ---
Author Organization [facility] Address [address] [place] [address] Phone Care Team Providers Care Tip Puncher Name Role Phone Jeni Garcia MD Primary Care Provider + [phone] Allergies Active Allergy Reactions Criticality Noted Date [...] Only [facility] [address] [place] [phone] Luke Quinn MD Hypertension from Last [...] [facility] [address] [phone] Luke Quinn MD [address] [phone] Health Maintenance Due Date Last Done Comments Diabetes: Ophthalmology Exam 12/17/2024 Diabetes: Pedal Pulse Checked 12/17/2024 Diabetes: Sensory Foot Exam 12/17/2024 Diabetes: Visual Foot Exam 12/17/2024 Diabetes: Hemoglobin A1C 12/24/2024 09/25/2024, 11/0 12/2022 Influenza Vaccine (#1) 2025 4, 07/22/2022, 09/23/2021, Additional history exists Pneumococcal [...] BLOOD ORDERABLES Final Result [facility] [address] [place] [phone] from Last 3 Months or Most Recently Relevant to Health Maintenance Insurance [employer] [facility] [employer] Medicaid [place] Care Teams Tip Puncher Relationship Specialty Start Date End Date Jeni Garcia MD [address] [place] [id number] PCP - General Internal Medicine 08/06/21
--- OUTSIDE RECORDS SUMMARY | 2025-05-09 14:41 | XMS_ITS | Encounter Summary ---
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) Jeni Garcia MD [address] [place] [address] Phone: tel: fax: [facility] [address] [facility] [address] [place] [address] Phone: tel: fax: Referral ID Status Reason Start Date Expiration Date V isits Requested Visits Authorized [id number] Closed Specialty Services Required 06/13/2024 06/13/2025 1 1 Encounter Details Date Type Department Care Team (Late st Contact Info) Description 06/13/[address] [facility] [address] [place] [address] Jeni Garcia MD [address] [place] [address] Renal artery stenosis (CMS/HCC); Superior mesenteric artery [...] Description 05/28/2025 10:00 AM EDT Office Visit [facility] [address] [place] [address] Keerthi [place] [address] [place] [phone] 07/05/2025 11:45 AM EDT Office Visit [facility] [address] [place] [address] Jeni Garcia MD [address] [place] [address] Scheduled Referrals Name Type Priority Associated Diagnoses [...] PM EDT Narrative 06/28/2024 4:28 PM EDT [address] [address] XRay Report Signed Patient: Joan Armendariz MR#: [id number] : 1945 Acct:[id number] Age/Sex: 79 / F ADM Date: 06/28/24 Loc: HO.ED Attending Dr: Ordering Physician: Geovanna Austin Date of Service: 06/28/24 Procedure(s): XR lumbar spine 2-3V Accession Number(s): [id number] cc: Jeni Garcia MD; Geovanna Austin EXAMINATION: [...] 06/28/24 1625 DD/ 1600 TD/TT: 06/28/24 1615 Brand Representative: Procedure Note Donotuseinterpreter, Image - 06/28/[address] [address] XRay Report Signed Patient: Joan Armendariz RMR#: [id number] : 1945cct:[id number] Age/Sex: 79 / FADM Date: 06/28/24 Loc: HO.ED Attending Dr: Ordering Physician: Geovanna Austin Date of Service: 06/28/24 Procedure(s): XR lumbar spine 2-3V Accession Number(s): [id number] cc: Jeni Garcia MD; Geovanna Austin EXAMINATION: [...] Julia Ellis MD 06/28/2024 04:25 PM EDT Workstation: [employer] MOD Dictated By: Julia Ellis MD Signed By: <Electronically signed by Julia Ellis MD in OV> 06/28/24 1625 DD/ 1600 TD/TT: 06/28/24 1615 Brand Representative: [facility] External Provider IMG XR PROCEDURES Final Result * XR Chest 1 View (06/28/2024 12:52 PM EDT) Anatomical Region Laterality Modality Chest Radiographic Tamiko ging 06/28/2024 12:5 2 PM EDT Narrative 06/28/2024 3:02 PM EDT [place] [address] XRay Report Signed Patient: Joan Armendariz MR#: [id number] : 1945 Acct:[id number] Age/Sex: 79 / F ADM Date: 06/28/24 Loc: HO.ED Attending Dr: Ordering Physician: Geovanna Austin Date of Service: 06/28/24 Procedure(s): XR chest 1V Accession Number(s): [id number] cc: Jeni Garcia MD; Geovanna Austin EXAMINATION: [...] MD 06/28/2024 02:59 PM EDT RP Workstation: [employer] Dictated By: Franklin Lepe MD Signed By: <Electronically signed by Franklin Lepe MD in OV> 06/28/24 1459 DD/ 1252 TD/TT: 06/28/24 1259 Brand Representative: BETH Procedure Note Donotuseinterpreter, Image - 06/28/[address] [address] XRay Report Signed Patient: Joan Armendariz RMR#: [id number] : 1945cct:[id number] Age/Sex: 79 / FADM Date: 06/28/24 Loc: .ED Attending Dr: Ordering Physician: Geovanna Austin Date of Service: 06/28/24 Procedure(s): XR chest 1V Accession Number(s): [id number] cc: Jeni Garcia MD; Geovanna Austin EXAMINATION: [...] 06/28/24 1459 DD/ 1252 TD/TT: 06/28/24 1259 Brand Representative: BETH [facility] External Provider IMG XR PROCEDURES Final [...] documented as of this encounter Care Teams Slackline Operator Relationship Specialty Start Date End Date Jeni Garcia MD [address] [place] [phone] PCP - General Family Medicine 12/16/15 documented as of this encounter
--- OUTSIDE RECORDS SUMMARY | 2025-05-09 14:41 | XMS_ITS | Clinical Summary ---
Author Organization [address] [facility] Address [address] [place] [address] Phone Care Team Providers Care Transport Manager Name Role Phone Jeni Garcia MD Primary Care Provider [phone] Allergies Active Allergy Reactions Criticality Noted Date [...] chew, or split. 60 each 11 11/14/19 026 Active carvediloL (COREG) 6.25 mg tablet TAKE 1 TABLET BY MOUTH WITH BREAKFAST AND EVENING MEAL Active methotrexate 2.5 mg tablet TAKE 8 TABLETS ONCE WEEKLY ON MONDAYS Active loratadine (CLARITIN) 10 mg tablet Take 1 tablet (10 mg total) by mouth 1 (one) time each day in the morning. Active atorvastatin (LIPITOR) 10 mg tablet Take 1 tablet (10 mg total) by mouth. 10/31/19 Active oxyCODONE (OXY-IR) 5 mg immediate release capsule Take by mouth. Active clopidogreL (PLAVIX) 75 mg tablet Take 1 tablet (75 mg total) by mouth 1 (one) time each day. Active olmesartan medoxomil (OLMESARTAN ORAL) Take by mouth. Active ferrous sulfate (IRON ORAL) Take by mouth. Active sennosides/docu sate sodium (SENEXON-S ORAL) Take by mouth. Active BIOTIN ORAL Take by mouth. 025 Discontinued fluticasone propionate (FLONASE) 50 mcg/actuation nasal spray 2 Sprays by Each Nare route daily. 025 Discontinued losartan (COZAAR) 100 mg tablet Take 100 mg by mouth daily. 025 Discontinued aspirin 81 mg EC tablet Take 1 tablet (81 mg total) by mouth. 10/31/19 025 Hospital, Clinic, or Other Facility Administered Medication [...] osteoarthritis of left knee 01/02 Myocardial infarction ([facility] V24, [facility] V28) 01/02/2025 S/P angioplasty with stent 01/02/2025 Status post total right knee replacement 025 Cholelithiasis 12/03/2024 CKD (chronic kidney disease) , stage III ([facility] V24, [facility] V28) 11/15/2024 Severe obesity (BMI 35.0-39. 9) with comorbidity ([facility] V24, [facility] V28) 11/15/2024 Dental plaque 11/13/2024 Cellulitis 09/04/2024 Fracture of vertebra due to osteoporosis with delayed healing 07/06/2024 Overview (11/15/2024): Xray L-spine on 06/28: L4 fracture/sp T12 vertebral augmentation-previous fx- Leg pain, diffuse, right 06/28/2024 Celiac artery stenosis ([facility] V24) 06/13/2024 Renal artery stenosis ([facility] V24) 06/13/2024 Superior mesenteric artery stenosis ([facility] V24 ) 06/13/2024 Open broken tooth [...] pain 06/28/2017 Hypothyroidism 06/28/2017 Rheumatoid arthritis, adult ([facility] V24, [facility] V28) 06/28/2017 Degeneration of lumbar intervertebral disc 12/10 Chronic obstructive pulmonar y disease ([facility] V24, [facility] V28) 12/11/2012 Angle-closure glaucoma 09/29/2012 GERD (gastroesophageal reflux disease) 2 Eosinophil count raised 05/15/2012 Hypertension 04/12/2012 Gait instability 04/12/2012 Neck pain 04/12/2012 Encounters Date Type Department Care Team Description 04/10/2025 9:00 AM EDT Office Visit Orthopedic Surgery - [address] [phone] Lazaro Saleh MD Post-traumatic osteoarthritis of left knee (Primary Dx); Gait instability; S/P angioplasty with stent from Last 3 Months Surgical History Surgery Date Site/Laterality Comments SHOULDER SURGERY 01/06/2023 Left PROCEDURE: HISTORICAL SHOULDER SURGERY; COMMENT: RTSA Medical History Medical History Date Comments Heart attack ([facility] V24, [facility] V28) 12/22/19 DURING A CRUISE Social History [...] PM EDT Office Visit Orthopedic Surgery - [place] [address] [phone] Eloisa Torres NP [address] [address] Health Maintenance Due Date Last Done Comments Zoster Vaccines (1 of 2) 03/19/2015 01/22/2015 RSV Immunization Adult Patients (1 - 1-dose 75+ series) 2018 Cholesterol Screening (Lipid Panel) 09/25/2022 Falls Risk Assessment 09/25/2022 Medicare Annual Wellness Visit 09/25/2022 Osteoporosis Screening (Bone Density Screening) 09/25/2022 Social Influencers of Health Screening 09/25/2022 COVID-19 Vaccine ( season) 2024 09/23/2021, 12/30/2020, 12/02/2020 Depression Screening 10/17/2024 Influenza Vaccine (#1) 2025 , 07/22/2022, 09/23/2021, [...] Procedure Name Priority Date/Time Associated Diagnosis Comments MA ARTHROCENTESIS/ASP IRATION/INJECTION MAJOR JOINT/BURSA W/O U/S GUIDANCE Routine 04/10/2025 9:00 AM EDT Post-traumatic osteoarthritis of left knee from Last 3 Months Results * MA ARTHROCENTESIS/ASPIRATION/INJECTION MAJOR JOINT/BURSA W/O U/S GUIDANCE (04/10/2025 [...] with patient: Verbal Pre-procedure timeout performed: yes Lazaro Saleh MD IN CLINIC/BEDSIDE ORD ERABLES Final Result from Last 3 Months Insurance [place] - [place] [employer] MEDICARE Advance Directives Documents on File Type Date Recorded 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
== END 2025-05-09 15:03 | disposition home or self-care (01) ==
LOC: HO.HPS 14:30
PROVIDERS: PCP Internal Medicine; Visit Provider Hospitalist
DX: J30.9 Allergic rhinitis, unspecified (principal); J98.11 Atelectasis; J45.30 Mild persistent asthma, uncomplicated; M79.89 Other specified soft tissue disorders; M54.6 Pain in thoracic spine; R13.10 Dysphagia, unspecified; R07.9 Chest pain, unspecified
CPT/HCPCS: 99214; G2211

== ENCOUNTER → 2025-05-09 15:17 | Outpatient (BNV) | payer OTHER, SELFPAY | PROVIDERS: PCP Internal Medicine; Visit Provider Radiology Diagnostic Radiology | DX: R07.9 Chest pain, unspecified (principal) | CPT/HCPCS: 71046 ==

== ENCOUNTER 2025-05-28 11:45 | Inpatient (IN) | payer OTHER, SELFPAY ==
--- OUTSIDE RECORDS SUMMARY | 2025-05-27 23:59 | XMS_ITS | Continuity of Care Document ---
Author Organization [facility] Address [address] [place] [phone] Care Team Providers Care Teacher Music Name Role Phone Jose CABRERA, Jeni Rose Primary Care Physician [place] [facility] [place](s): 05/20/25 - 05/27/25 [facility] [address] [place] [id number] Encounter Diagnosis Superior mesenteric artery stenosis(Discharge Diagnosis) - 05/20/25 Attending Physician: James CHAU, Hortensia Hopson Admitting Physician: James CHAU, Hortensia Hopson Referring Physician: Jeni Garcia MD Encounter Type: [...] 5 Refills, Maintenance, 10/31/24 4:32:00 PM EST, [facility]/pharmacy #[id number], Partial fill upon patient request if [...] 2:37:00 PM EDT, Route to Pharmacy Electronically, [facility]/pharmacy #[id number], Partial fill upon patient requestif the prescription [...] Refills, Maintenance, 04/05/25 1:24:00 PM EDT, [facility], [facility], Partial fill upon patient request if [...] 0 Refills, Maintenance, 04/04/25 9:55:00 PM EDT, [place], Partial fill upon patient request if the [...] 10:22:00 PM EDT, Route to Pharmacy Electronically, [facility]/pharmacy #[id number], Partial fill upon patient request if the [...] fifth metatarsal bone Confirmed Active CAD in [place] artery Confirmed Active Eczema Confirmed Active GERD [...] Informant Superior mesenteric artery stenosis Discharge Diagnosis 05/20/25 Social History Social History Type Response Smoking Status Never (less than 100 in lifetime) entered on: 04/04/25 Sex Sex Representation Female (finding) Patient Care team information Care Team Personnel Name: Jeni Garcia MD Position: [facility] Outreach Member Role: PCP Address: [address] [place] [address] Telecom: Name: Antoinette Ramos RN Position: S RN Member Role: Primary Care Nurse Name: Brooklyn Trimble RN Position: S RN Member Role: Primary Care Nurse Name: Nancy Aguilera RN Position: S RN Member Role: Primary Care Nurse Care Team Related Persons Name: JULIEN LAU Name: ELHAM LAU Insurance Providers Guarantor name: BRYAN Health Plan Information #: 1 Payer: [facility] OPT Payer Identifier: BRYAN Member Number: [id number] Group Number: [id number] Subscriber Identifier: [id number] Relationship to Subscriber: self Coverage Type: Medicare Managed Care (Includes Medicare Advantage Plans) Coverage Verification Date: BRYAN Telecom: BRYAN Address: Health Plan Information #: 2 Payer: [employer] Payer Identifier: BRYAN Member Number: [id number] Group Number: [id number] Subscriber Identifier: [id number] Relationship to Subscriber: self Coverage Type: MEDICAID Coverage Verification Date: BRYAN Telecom: BRYAN Address:
[2025-05-28] VITALS (10 sets, daily range): BP systolic 148–199; BP diastolic 52–84; PULSE 61–82; RESP 13–26; TEMP 36.6–36.7; O2SAT 95–100; BMI 26.4
--- NOTE | 2025-05-28 | ECG_ITS ---
Test Reason : ABD PAIN Blood Pressure : */* mmHG Vent. Rate : 65 BPM Atrial Rate : 65 BPM P-R Int : 170 ms QRS Dur : 78 ms QT Int : 408 ms P-R-T Axes : 8 8 34 degrees QTcB Int : 424 ms Normal sinus rhythm Normal ECG When compared with ECG of 29-Nov-2024 18:59, No significant change was found Referred By: Generic ED Physician Electronically Signed By: Kadeem Walker
--- NOTE | 2025-05-28 | ECG_ITS ---
Test Reason : CP Blood Pressure : */* mmHG Vent. Rate : 60 BPM Atrial Rate : 60 BPM P-R Int : 170 ms QRS Dur : 78 ms QT Int : 418 ms P-R-T Axes : 38 8 36 degrees QTcB Int : 418 ms Normal sinus rhythm Normal ECG When compared with ECG of 28-May-2025 11:59, No significant change was found Referred By: Skyla Martinez Electronically Signed By: Kadeem Walker
--- NOTE | ~2025-05-28 | CT_ITS ---
EXAMINATION: CT ABDOMEN PELVIS WITHOUT THEN WITH IV CONTRAST HISTORY: anemic, on Plavix, abd pain, black stool COMPARISON: Comparison is made with the prior examination dated 04/16/2024. TECHNIQUE: CT scan of the abdomen and pelvis was performed before and after the intravenous administration of 85 mL Omnipaque 350. Post contrast imaging was obtained in the arterial and delayed phases. Coronal and sagittal reformatted images were generated and reviewed. Oral contrast material was not administered per department protocol. This CT exam was performed with one or more of the following dose reduction techniques: automated exposure control, adjustment of the mA and/or kV according to patient size, use of iterative reconstruction technique. DLP: 1115 mGy-cm ABDOMEN: LOWER CHEST: The visualized lung bases are clear. There is no pleural effusion. CARDIOVASCULATURE: The heart is normal in size. There is no pericardial effusion. LIVER: The liver is normal in size and contour. No liver mass is identified. The hepatic and portal veins are patent. GALLBLADDER / BILE DUCTS: The gallbladder is surgically absent. There is no intra or extrahepatic biliary ductal dilatation. SPLEEN: The spleen is normal in size. No focal splenic lesion is identified. PANCREAS: The pancreas is unremarkable in appearance. ADRENAL GLANDS: Within normal limits. KIDNEYS/RETROPERITONEUM: No renal calculi are identified. There is no hydronephrosis. No renal masses are identified. LYMPH NODES: No abdominal or pelvic lymphadenopathy. VASCULATURE: There is diffuse atherosclerotic calcification of the abdominal aorta. A stent is seen in the origin of the superior mesenteric artery. There is calcification at the ostia of the bilateral renal arteries. There may be a stenosis on the right. MESENTERY/PERITONEUM: No free fluid. No masses. There is no free intraperitoneal gas. STOMACH: There is wall thickening of the distal esophagus. The stomach is collapsed. SMALL BOWEL: The small bowel is normal in caliber. No contrast extravasation is seen to suggest active GI bleeding. COLON: The colon is unremarkable. No contrast extravasation is seen to suggest active GI bleeding. APPENDIX: The appendix is not seen, however no inflammatory changes are seen adjacent to the cecum . URINARY BLADDER/PELVIC ORGANS: The urinary bladder is unremarkable. The patient is status post hysterectomy. BONES / SOFT TISSUES: The patient is status post kyphoplasty at T12. CT/CT gi bleed abd pel wo/w IVcon IMPRESSION: 1. No contrast extravasation is seen in the GI tract suggest active bleeding. 2. Wall thickening of the distal esophagus. Further evaluation with barium swallow or upper endoscopy is recommended. Electronically signed by: Bony Ricks MD 05/28/2025 03:02 PM EDT
[2025-05-28 12:20] LABS: MANUAL DIFF FLAG NO
--- NOTE | 2025-05-28 12:20 | PC.NURSE ---
pt biba from [facility] dentist appt c/o generalized diffuse nonradiating abd pain w/ associated nausea and soft dark formed stools x 2 days. +plavix d/t hx [place]. pt also reports taking iron supplements but stopped taking x 2 weeks ago. denies any episodes of vomiting/fevers/chills/urinary sx. upon ED arrival - pt a&ox4. vss and up to date aside from being slightly hypertensive - denies any chest pain/palpitations. pt ekg obtained/given to provider. 20gIV placed in the right outer wrist - labs obtained/sent to lab. pt on RA w/o difficulty. no sob/wob noted. respirations even/unlabored. pt waiting to be seen by provider. plan of care ongoing. call cherry placed within reach.
[2025-05-28 12:21] LABS: Hematocrit 28.3 % (37.0-47.0); Hemoglobin 8.7 g/dl (12.0-16.0); Imm Gran Abs Auto 0.02 X10*3/uL (0.00-0.03); Imm Gran Pct Auto 0.2 % (0.0-0.4); Lymphocytes Absolute Auto 1.9 X10*3/uL (1.2-4.9); Mean Corpuscular HGB Conc 30.7 g/dl (31.0-35.0); Mean Corpuscular Hemoglobin 24.5 pg (27.0-33.0); Mean Corpuscular Volume 79.7 fL (80.0-98.0); NRBC Abs Auto 0.000 X10*3/uL (0.0-0.012); NRBC Pct Auto 0.0 /100WBC (0.0-0.2); Platelet Count 203 X10*3/uL (160-400); Red Blood Count 3.55 X10*6/uL (4.20-5.50); White Blood Count 8.2 X10*3/uL (4.8-10.8)
[2025-05-28 12:26] LABS: INTERNATIONAL NORM RATIO 1.1 (0.9-1.1); Prothrombin Time 12.2 SEC (10.9-12.4)
[2025-05-28 12:28] LABS: Partial Thromboplastin Time 25.4 SEC (26.7-34.1)
[2025-05-28 12:41] LABS: Troponin-I High Sensitivity 2.7 ng/L (<3.5-17.0)
--- NOTE | 2025-05-28 12:46 | ED.ABDPAIN ---
HPI - Abdominal Pain General Chief Complaint: Abdominal Pain Stated Complaint: ABD PAIN X2D,DARK STOOLS PER EMS Time Seen by Provider: 05/28/25 12:03 Source: patient Mode of arrival: ambulatory Limitations: no limitations History of Present Illness ED Provider: Dr. Skyla Martinez HPI narrative: Patient comes to the emergency room complaining of diffuse abdominal pain that started about 3 weeks ago and also complaining of dark stools. Patient states that earlier today she was not her dentist appointment, however, patient told him that she was having abdominal pain, told him that she is taking Lasix and has had black stools and therefore they brought her into the emergency room. Patient denies nausea vomiting or diarrhea. Denies any urinary symptoms. Patient states that she takes iron but stopped taking it 2 weeks ago Related Data Home Medications ?Medication ?Instructions ?Recorded ?Confirmed inhalational spacing device #1 ea 07/16/20 11/28/24 levothyroxine 25 mcg tablet 25 mcg PO DAILY 07/16/20 01/28/25 methotrexate sodium 2.5 mg tablet 15 mg PO QWEEK 07/16/20 01/28/25 acetaminophen 650 mg 650 mg PO Q12H 08/01/20 01/28/25 tablet,extended release (Tylenol Arthritis Pain) folic acid 1 mg tablet 1 mg PO DAILY 08/01/20 01/28/25 cholecalciferol (vitamin D3) 125 125 mcg PO DAILY 12/31/21 01/28/25 mcg (5,000 unit) capsule gabapentin 100 mg capsule 100 mg PO TID 10/28/22 01/28/25 nebulizers 10/28/22 11/28/24 aspirin 81 mg tablet,delayed 81 mg PO DAILY 01/28/25 01/28/25 release atorvastatin 80 mg tablet mg PO 01/28/25 01/28/25 clopidogrel 75 mg tablet 75 mg PO DAILY 01/28/25 01/28/25 famotidine 20 mg tablet 20 mg PO 01/28/25 01/28/25 nitroglycerin 0.4 mg sublingual mg sublingual 01/28/25 01/28/25 tablet olmesartan 20 1 tab PO DAILY 01/28/25 01/28/25 mg-hydrochlorothiazide 12.5 mg tablet Previous Rx's ?Medication ?Instructions ?Recorded albuterol sulfate 2.5 mg/3 mL 2.5 mg (3 mL) inhalation Q4-6H PRN 10/04/21 (0.083 %) solution for nebulization Wheezing #90 mL albuterol sulfate 90 mcg/actuation 2 puff inhalation Q4-6H PRN 10/04/21 aerosol inhaler (ProAir HFA) Wheezing #8.5 grams fluticasone propionate 115 2 puff inhalation Q12H 30 days #12 10/28/22 mcg-salmeterol 21 mcg/actuation grams HFA inhaler (Advair HFA) back brace #1 ea 07/11/24 montelukast 10 mg tablet 10 mg PO QPM #90 tabs 04/29/25 Allergies Allergy/AdvReac Type Severity Reaction Status Date / Time codeine (CODEINE) Allergy Mild Rash Verified 05/28/25 11:52 morphine (MORPHINE) Allergy Mild Hallucinati Verified 05/28/25 11:52 ons oxycodone (Percocet) Allergy Mild Hives Verified 05/28/25 11:52 tramadol AdvReac Severe Headache Verified 05/28/25 11:52 Review of Systems Review of Systems Constitutional : No Weight loss, No Fever, No Chills, No Night Sweats, No Fatigue, No Malaise ENT/Mouth : No Hearing loss, No Ear Pain, No Nasal Congestion, No Sinus Pain, No Hoarseness, No sore throat, No Rhinorrhea, No Swallowing Difficulty Eyes: No Eye Pain, No Swelling, No Redness, No Foreign Body, No Discharge, No Vision Changes Cardiovascular : No Chest Pain, No SOB, No Dyspnea on Exertion, No Orthopnea, No Edema, No Palpitations Respiratory : No Cough, No Sputum, No Wheezing, No Smoke Exposure, No Dyspnea Gastrointestinal : No Nausea, No Vomiting, No Diarrhea, complaining of abdominal cramping, complaining of black stool Genitourinary : no irregular bleeding, No Dysuria, No Urinary Frequency, No Hematuria, No Urinary Incontinence, No Urgency, No Flank Pain, No Urinary Flow Changes, No Hesitancy Musculoskeletal : No joint pain, No Myalgias, No Joint Swelling Skin : No Skin Lesions, No rash Neuro : No Weakness, No Numbness, No Paresthesias, No Loss of Consciousness, No Dizziness, No Headache Psych : No Anxiety/Panic, No Depression, No SI/HI/AH/VH, No Social Issues, Heme/Lymph: No Bruising, No Bleeding,No Lymphadenopathy Endocrine : No Polyuria, No Polydipsia, No Temperature Intolerance [facility] Past Medical History Medical History (Updated 05/28/25 @ 15:59 by Skyla Martinez MD) Dysphagia Pleural effusion Cellulitis Limb swelling Chest pain Asthma Chronic allergic rhinitis Atelectasis of left lung Family History Family History Father Lung cancer Mother Throat cancer Social History Social History Patient Tobacco Use Status: Former Tobacco user Tobacco use type: Cigarette Years Smoked: 4 years Advance Directives: Yes Advance Directives Information Provided: Yes Advance Directives on File: No Do you have a plan to hurt others: No Plan Physical Exam ED Exam Exam: Appearance: Alert. Oriented X3. No acute distress. Well-appearing Eyes: Pupils equal, round and reactive to light. ENT: Pharynx normal. Neck: Normal inspection. Neck supple. No lymph nodes noted. No crepitus CVS: Normal heart rate and rhythm. Pulses normal. Normal S1 and S2 Respiratory: No respiratory distress. Breath sounds normal. No Wheezing. No rales Abdomen: Soft , no pain to palpation in any of the quadrants, No rigidity. No distention. Skin: Skin warm and dry. Normal skin color. Normal skin turgor. Extremities: No lower extremity edema. No Lacerations. No Rash Neuro: Oriented X 3. No motor deficit. No sensory deficit. Moving all extremities. No slurred speech. CN 2 through 12 grossly intact Psych: calm, cooperative, normal affect Vital Signs: Vital Signs - 24 hr 05/28/25 11:51 05/28/25 14:21 Temperature 97.8 F 97.9 F Pulse Rate 66 69 Respiratory Rate 17 16 Blood Pressure 199/66 H 180/70 H Pulse Oximetry 100 100 Oxygen Delivery Method Room Air Room Air BMI result Body Mass Index 26.4 Course Course Course Narrative: Patient complaining of black stools for several days, used to take iron but stopped taking it 2 weeks ago. Medical Decision Making Medical Decision Making [facility] Narrative: My interpretation of labs: No significant abnormality in patient's white blood cell count. However, it is noted that patient's hemoglobin is a little bit lower than usual, today is 8.7, at baseline patient is around 11. Platelets within normal limits. No significant abnormality in patient's chemistry, normal magnesium and LFTs, urine negative for UTI, occult blood positive CT scan negative for active GI bleed Given patient's age, onset of decreasing hemoglobin and occult blood, we will go ahead and admit the patient. Differential Diagnosis Differential Diagnoses: The differential diagnosis associated with the presentation includes (Enteritis, GI bleed, viral illness) Admission/Observation Consideration of admission/observation: Escalation of care including admission/observation considered Consult Healthcare Provider Management of the patient was discussed with: Hospitalist Lab Data MDM Lab Attestation statement: I reviewed the patient's lab results. 05/28/25 12:13 05/28/25 13:24 Labs: Lab Results 05/28/25 05/28/25 05/28/25 Range/Units 12:13 12:58 13:24 WBC 8.2 (4.8-10.8) X10*3/uL RBC 3.55 L (4.20-5.50) X10*6/uL Hgb 8.7 L D (12.0-16.0) g/dl Hct 28.3 L (37.0-47.0) % MCV 79.7 L (80.0-98.0) fL MCH 24.5 L (27.0-33.0) pg MCHC 30.7 L (31.0-35.0) g/dl RDW 18.0 H (11.0-16.0) % Plt Count 203 (160-400) X10*3/uL MPV 11.8 (9.4-12.3) fL Immature Gran % (Auto) 0.2 (0.0-0.4) % Neut % (Auto) 50.2 (45-73) % Lymph % (Auto) 23.6 (20-40) % [place] % (Auto) 7.8 (2-11) % Eos % (Auto) 17.8 H (0-4) % Baso % (Auto) 0.4 (0-2) % Lymph # (Auto) 1.9 (1.2-4.9) X10*3/uL [place] # (Auto) 0.6 (0.1-1.2) X10*3/uL Eos # (Auto) 1.5 H (0.0-0.4) X10*3/uL Baso # (Auto) 0.0 (0.0-0.2) X10*3/uL Abs Immat Gran (auto) 0.02 (0.00-0.03) X10*3/uL Absolute Neuts (auto) 4.1 (2.0-8.3) x10*3/uL Absolute Nucleated RBC 0.000 (0.0-0.012) X10*3/uL Nucleated RBC % (auto) 0.0 (0.0-0.2) /100WBC PT 12.2 (10.9-12.4) SEC INR 1.1 (0.9-1.1) APTT 25.4 L (26.7-34.1) SEC Sodium 143 (135-145) mmol/L Potassium 3.8 (3.3-5.1) mmol/L Chloride 112 H (96-108) mmol/L Carbon Dioxide 24 (22-29) mmol/L Anion Gap 11 L (12-20) BUN 15 (9-16) mg/dL Creatinine 0.90 (0.5-1.4) mg/dL Estim Creat Clear Calc 47.9 Estimated GFR 60 Random Glucose 104 (60-115) mg/dL Calcium 8.6 D (8.4-10.2) mg/dL Magnesium 2.4 (1.6-2.6) mg/dL Total Bilirubin 0.3 (0.0-1.0) mg/dL Direct Bilirubin 0.2 (0.0-0.5) mg/dL AST 24 (5-31) U/L ALT 12 (0-31) U/L Alkaline Phosphatase 60 (39-117) U/L Troponin I High Sens 2.7 (<3.5-17.0) ng/L Total Protein 6.7 (6.5-8.0) g/dL Albumin 3.7 (3.5-5.0) g/dL Lipase 29 (8-78) U/L Urine Color Yellow Urine Appearance Clear Urine pH 6.5 (5.0-9.0) Ur Specific [place] <= 1.005 (1.005-1.025) Urine Protein Negative (Neg-Trace) mg/dL Urine Glucose (UA) Negative (Negative) mg/dL Urine Ketones Negative (Negative) mg/dL Urine Blood Negative (Negative) Urine Nitrite Negative (Negative) Ur Leukocyte Esterase Trace H (Negative) Urine RBC 0-2 (0-2) /HPF Urine WBC 0-5 (0-5) /HPF Ur Squamous Epith Cells 0-2 (0-2) /HPF Urine Bacteria None Seen (None Seen) Hyaline Casts 0-2 (0-2) /LPF Stool Occult Blood POSITIVE (NEGATIVE) Independent Interpretation I performed an independent interpretation of an: CT Scan Radiology Impression Discussion of test interpretation with radiology: I have reviewed the radiologist's reading. Radiologist Impression: LOWER CHEST: The visualized lung bases are clear. There is no pleural effusion. CARDIOVASCULATURE: The heart is normal in size. There is no pericardial effusion. LIVER: The liver is normal in size and contour. No liver mass is identified. The hepatic and portal veins are patent. GALLBLADDER / BILE DUCTS: The gallbladder is surgically absent. There is no intra or extrahepatic biliary ductal dilatation. SPLEEN: The spleen is normal in size. No focal splenic lesion is identified. PANCREAS: The pancreas is unremarkable in appearance. ADRENAL GLANDS: Within normal limits. KIDNEYS/RETROPERITONEUM: No renal calculi are identified. There is no hydronephrosis. No renal masses are identified. LYMPH NODES: No abdominal or pelvic lymphadenopathy. VASCULATURE: There is diffuse atherosclerotic calcification of the abdominal aorta. A stent is seen in the origin of the superior mesenteric artery. There is calcification at the ostia of the bilateral renal arteries. There may be a stenosis on the right. MESENTERY/PERITONEUM: No free fluid. No masses. There is no free intraperitoneal gas. STOMACH: There is wall thickening of the distal esophagus. The stomach is collapsed. SMALL BOWEL: The small bowel is normal in caliber. No contrast extravasation is seen to suggest active GI bleeding. COLON: The colon is unremarkable. No contrast extravasation is seen to suggest active GI bleeding. APPENDIX: The appendix is not seen, however no inflammatory changes are seen adjacent to the cecum . URINARY BLADDER/PELVIC ORGANS: The urinary bladder is unremarkable. The patient is status post hysterectomy. BONES / SOFT TISSUES: The patient is status post kyphoplasty at T12. CT/CT gi bleed abd pel wo/w IVcon IMPRESSION: 1. No contrast extravasation is seen in the GI tract suggest active bleeding. 2. Wall thickening of the distal esophagus. Further evaluation with barium swallow or upper endoscopy is recommended. Medications Administered Discontinued Medications Generic Name Dose Route Start Last Admin Trade Name Freq PRN Reason Stop Dose Admin Iohexol 100 ml 05/28/25 14:31 05/28/25 14:31 Iohexol 350 Mg/Ml 100 Ml Infus..Btl IV 05/28/25 14:32 80 ml ONCE ONE Administration Critical Care Time Critical Care Time Critical Care Time: Yes Total Critical Care Time: 60 Attestation: I have personally provided critical care time. Time includes review of lab data, radiology results, discussion with consultants, and monitoring for potential decompensation. Intervention performed as documented. Discharge Plan Discharge Clinical Impression: GI bleed, Anemia Patient Disposition: Admitted As Inpatient Print Language: Japanese
[2025-05-28 13:02] LABS: OBS Int Ctl Valid YES; OBS1 POSITIVE (NEGATIVE)
[2025-05-28 13:04] LABS: Appearance Urine Clear; Glucose Urine UA Negative (Negative); PH 6.5 (5.0-9.0); Specific Gravity - Urine <= 1.005 (1.005-1.025); UMIC TRIGGER UACC YES
[2025-05-28 14:15] LABS: Alanine Aminotransferase 12 U/L (0-31); Albumin Level 3.7 g/dL (3.5-5.0); Alkaline Phosphatase 60 U/L (39-117); Anion Gap 11 (12-20); Aspartate Amino Transferase 24 U/L (5-31); Blood Urea Nitrogen 15 mg/dL (9-16); Calcium 8.6 mg/dL (8.4-10.2); Carbon Dioxide 24 mmol/L (22-29); Chloride 112 mmol/L (96-108); Creatinine Clr Calc Pharmacy 47.9; Estimated Glomerular Filt Rate 60; Lipase 29 U/L (8-78); Magnesium 2.4 mg/dL (1.6-2.6); Potassium 3.8 mmol/L (3.3-5.1); Sodium 143 mmol/L (135-145); Total Protein 6.7 g/dL (6.5-8.0)
[2025-05-28] MEDS: iohexoL 350 MG/ML 100 ML INFUS..BTL IV (14:31)
--- OUTSIDE RECORDS SUMMARY | 2025-05-28 14:51 | XMS_ITS | Encounter Summary ---
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 (CMS/HCC) Jeni Garcia MD [address] [place] [address] Phone: tel: fax: [facility] Sur[facility] [address] [place] [address] Phone: tel: fax: Referral ID Status Reason Start Date Expiration Date V isits Requested Visits Authorized [id number] Closed Specialty Services Required 06/13/2024 06/13/2025 1 1 Encounter Details Date Type Department Care Team (Late st Contact Info) Description 06/13/2024 Orders Only [facility] MEDICINE [address] [place] [address] Jeni Garcia MD [address] [place] [address] Renal artery stenosis (CMS/HCC); Superior [...] Upcoming Encounters Date Type Department Care Team ([facility] st Contact Info) Description 07/05/2025 11:45 AM EDT Office Visit [facility] MEDICINE [address] [place] [phone] Jeni Garcia MD [address] [place] [phone] Scheduled Referrals Name Type Priority Associated Diagnoses [...] PM EDT Narrative 06/28/2024 4:28 PM EDT [address] [address] XRay Report Signed Patient: Joan Armendariz MR#: [id number] : 1945 Acct:[id number] Age/Sex: 79 / F ADM Date: 06/28/24 Loc: .ED Attending Dr: Ordering Physician: Geovanna Austin Date of Service: 06/28/24 Procedure(s): XR lumbar spine 2-3V Accession Number(s): [id number] cc: Jeni Garcia MD; Geovanna Austin EXAMINATION: [...] 06/28/24 1625 DD/ 1600 TD/TT: 06/28/24 1615 Meal Packer: Procedure Note Donotuseinterpreter, Image - 06/28/[address] [address] XRay Report Signed Patient: Joan Armendariz RMR#: [id number] : 1945cct:[id number] Age/Sex: 79 / FADM Date: 06/28/24 Loc: HO.ED Attending Dr: Ordering Physician: Geovanna Austin Date of Service: 06/28/24 Procedure(s): XR lumbar spine 2-3V Accession Number(s): [id number] cc: Jeni Garcia MD; Geovanna Austin EXAMINATION: [...] 06/28/24 1625 DD/ 1600 TD/TT: 06/28/24 1615 Meal Packer: [facility] External Provider IMG XR PROCEDURES Final Result * XR Chest 1 View (06/28/2024 12:52 PM EDT) Anatomical Region Laterality Modality Chest Radiographic Tamiko ging 06/28/2024 12:5 2 PM EDT Narrative 06/28/2024 3:02 PM EDT [place] [address] XRay Report Signed Patient: Joan Armendariz MR#: [id number] : 1945 Acct:[id number] Age/Sex: 79 / F ADM Date: 06/28/24 Loc: HO.ED Attending Dr: Ordering Physician: Geovanna Austin Date of Service: 06/28/24 Procedure(s): XR chest 1V Accession Number(s): [id number] cc: Jeni Garcia MD; Geovanna Austin EXAMINATION: [...] 06/28/24 1459 DD/ 1252 TD/TT: 06/28/24 1259 Meal Packer: BETH Procedure Note Donotuseinterpreter, Image - 06/28/[address] [address] XRay Report Signed Patient: Joan Armendariz RMR#: [id number] : 1945cct:[id number] Age/Sex: 79 / FADM Date: 06/28/24 Loc: .ED Attending Dr: Ordering Physician: Geovanna Austin Date of Service: 06/28/24 Procedure(s): XR chest 1V Accession Number(s): [id number] cc: Jeni Garcia MD; Geovanna Austin EXAMINATION: [...] 06/28/24 1459 DD/ 1252 TD/TT: 06/28/24 1259 Meal Packer: BETH [facility] External Provider IMG XR PROCEDURES Final Result [...] documented as of this encounter Care Teams Competitive Shopper Relationship Specialty Start Date End Date Jeni Garcia MD [address] [place] [phone] PCP - General Family Medicine 12/16/15 documented as of this encounter
--- OUTSIDE RECORDS SUMMARY | 2025-05-28 14:51 | XMS_ITS | Clinical Summary ---
Author Organization [facility] Address [address] [facility] [address] [place] [address] Phone Care Team Providers Care Consumer Sales Representative Name Role Phone Jeni Garcia MD Primary Care Provider + [phone] Allergies Active Allergy Reactions Criticality Noted Date [...] Only [facility] [address] [place] [phone] Luke Quinn MD Hypertension from Last [...] [facility] [address] [phone] Luke Quinn MD [address] [phone] Health Maintenance Due Date Last Done Comments [...] BLOOD ORDERABLES Final Result [facility] [address] [place] [phone] from Last 3 Months or Most Recently Relevant to Health Maintenance Insurance [employer] [facility] [employer] Medicaid [place] Care Teams Consumer Sales Representative Relationship Specialty Start Date End Date Jeni Garcia MD [address] [place] [phone] PCP - General Internal Medicine 08/06/21
--- OUTSIDE RECORDS SUMMARY | 2025-05-28 14:52 | XMS_ITS | Clinical Summary ---
Author Organization [address] [facility] Address [address] [place] [address] Phone Care Team Providers Care Slot Router Name Role Phone Jeni Garcia MD Primary Care Provider + [phone] Allergies Active Allergy Reactions Criticality Noted Date [...] unit) capsule Take by mouth. Activ e famotidine (PEPCID) 40 mg tablet Take 40 [...] tablet (10 mg total) by mouth. 5 Active oxyCODONE (OXY-IR) 5 mg immediate release capsule Take by mouth. Active clopidogreL (PLAVIX) 75 mg tablet Take 1 tablet (75 mg total) by mouth 1 (one) time each day. Active olmesartan medoxomil (OLMESARTAN ORAL) Take by mouth. Activ e ferrous sulfate (IRON ORAL) Take by mouth. Act jesus sennosides/docus ate sodium (SENEXON-S ORAL) Take by mouth. Active aspirin 81 mg EC tablet Take 1 tablet (81 mg total) by mouth. 5 04/29/20 25 Active Problems Problem Noted Date Diagnosed Date Post-traumatic osteoarthritis of left knee 01/02 Myocardial infarction ([facility] V24, [facility] V28) 01/02/2025 S/P angioplasty with stent 01/02/2025 Status post total right knee replacement 025 Cholelithiasis 12/03/2024 CKD (chronic kidney disease) , stage III ([facility] V24, [facility] V28) 11/15/2024 Severe obesity (BMI 35.0-39. 9) with comorbidity ([facility] V24, [facility] V28) 11/15/2024 Dental plaque 11/13/2024 Cellulitis 09/04/2024 Fracture of vertebra due to osteoporosis with delayed healing 07/06/2024 Overview (11/15/2024): Xray L-spine on 06/28: L4 fracture/sp T12 vertebral augmentation-previous fx- Leg pain, diffuse, right 06/28/2024 Celiac artery stenosis ([facility] V24) 06/13/2024 Renal artery stenosis ([facility] V24) 06/13/2024 Superior mesenteric artery stenosis ([facility] V24 ) 06/13/2024 Open broken tooth due [...] pain 06/28/2017 Hypothyroidism 06/28/2017 Rheumatoid arthritis, adult ([facility] V24, [facility] V28) 06/28/2017 Degeneration of lumbar intervertebral disc 12/10 Chronic obstructive pulmonar y disease ([facility] V24, [facility] V28) 12/11/2012 Angle-closure glaucoma 09/29/2012 GERD (gastroesophageal reflux disease) 2 Eosinophil count raised 05/15/2012 Hypertension 04/12/2012 Gait instability 04/12/2012 Neck pain 04/12/2012 Encounters Date Type Department Care Team Description 04/10/2025 9:00 AM EDT Office Visit Orthopedic Surgery [facility] [address] [phone] Lazaro Saleh MD Post-traumatic osteoarthritis of left knee (Primary Dx); Gait instability; S/P angioplasty with stent from Last 3 Months Surgical History Surgery Date Site/Laterality Comments SHOULDER SURGERY 01/06/2023 Left PROCEDURE: HISTORICAL SHOULDER SURGERY; COMMENT: RTSA Medical History Medical History Date Comments Heart attack ([facility] V24, [facility] V28) 12/22/19 DURING A CRUISE Social History [...] 1:30 PM EDT Office Visit Orthopedic Surgery [facility] [address] [phone] Eloisa Torres NP [address] [phone] Health Maintenance Due Date Last Done Comments [...] Procedure Name Priority Date/Time Associated Diagnosis Comments [place] ARTHROCENTESIS/ASP IRATION/INJECTION MAJOR JOINT/BURSA W/O U/S GUIDANCE Routine 04/10/2025 9:00 AM EDT Post-traumatic osteoarthritis of left knee from Last 3 Months Results * [place] ARTHROCENTESIS/ASPIRATION/INJECTION MAJOR JOINT/BURSA W/O U/S GUIDANCE (04/10/2025 [...] from Last 3 Months Insurance [place] - [place] [employer] MEDICARE Advance Directives Documents on File Type Date Recorded Patient Administrative Appeals Tribunal Member Expl anation Health Care Decision (hx) 03/27/2019 [...] (hx) 03/27/2019 AD CEJA DIRECTIVE Care Teams Slot Router Relationship Specialty Start Date End Date Jeni Garcia MD [address] [place] [phone] PCP - General 05/19/21
--- NOTE | 2025-05-28 16:20 | PC.NURSE ---
1:1 assist OOB and to the restroom. pt utilized cane independently (baseline) w/o difficulty. strong/steady gait noted. pt assisted back into bed s/p using restroom. pt started c/o nonradiating substernal chest pain s/p exertion. no sob/diaphoresis/nausea/vomiting. ekg obtained/given to ED provider. no new orders at this time.
--- NOTE | 2025-05-28 16:23 | PM.IMHP ---
History of Present Illness Date of Service: 05/28/25 Chief Complaint: Abd pain, melana 80/F with 1. Hypertension. 2. Obstructive sleep apnea. DVT. 5. COPD. 6. Inflammatory arthritis/collagen vascular disorder. 7. Glaucoma. 8. Pulmonary nodules who presents with epigastric and upper abdominal pain for 2 to 3 days, associated with nasuea and vomitting and dark stools. She was at a dental visit when she was sent to the ED. She is slightly tachycardic HR110, Hemogoblin is 8.7, previsoulsy [address] in december of this year. CT of abdomen and pelvis 1. No contrast extravasation is seen in the GI tract suggest active bleeding.b 2. Wall thickening of the distal esophagus. Further evaluation with barium swallow or upper endoscopy is recommended. Review of Systems Review of Systems: Gen: no fever Resp: no sob, no cough CV: no chest, no WALTERS, no leg edema GI: No n/v, + abd pain Neuro: No confusion Yes all other systems are reviewed and are negative [facility] Medical History (Updated 05/28/25 @ 17:01 by Ricco Tyler MD) Dysphagia Pleural effusion Cellulitis Limb swelling Chest pain Asthma Chronic allergic rhinitis Atelectasis of left lung Family History Father Lung cancer Mother Throat cancer Social History Patient Tobacco Use Status: Former Tobacco user Tobacco use type: Cigarette Years Smoked: 4 years Smoked in Last 30 Days: No Use of substances other than those prescribed or required for medical reasons: No Advance Directives: Yes Advance Directives Information Provided: Yes Advance Directives on File: No Do you have a plan to hurt others: No Plan Nutrition Risks: No Nutritional Risk Meds Allergies Allergy/AdvReac Type Severity Reaction Status Date / Time codeine (CODEINE) Allergy Mild Rash Verified 05/28/25 11:52 morphine (MORPHINE) Allergy Mild Hallucinati Verified 05/28/25 11:52 ons oxycodone (Percocet) Allergy Mild Hives Verified 05/28/25 11:52 tramadol AdvReac Severe Headache Verified 05/28/25 11:52 Home Medications ?Medication ?Instructions ?Recorded ?Confirmed ?Last Taken ?Type inhalational spacing device #1 ea 07/16/20 11/28/24 Unknown History nebulizers 10/28/22 11/28/24 Unknown History aspirin 81 mg tablet,delayed 81 mg PO DAILY 01/28/25 05/28/25 05/28/25 History release atorvastatin 80 mg tablet 80 mg PO BEDTIME 01/28/25 05/28/25 05/27/25 History clopidogrel 75 mg tablet 75 mg PO DAILY 01/28/25 05/28/25 05/28/25 History famotidine 20 mg tablet 20 mg PO DAILY 01/28/25 05/28/25 05/28/25 History nitroglycerin 0.4 mg sublingual 0.4 mg sublingual NEEDED PRN 01/28/25 05/28/25 05/28/25 History tablet Chest Pain carvedilol 6.25 mg tablet 6.25 mg PO BID 05/28/25 05/28/25 05/28/25 History cholecalciferol (vitamin D3) 125 125 mcg PO MOTH 05/28/25 05/28/25 05/27/25 History mcg (5,000 unit) capsule fluticasone propionate 50 2 spray intranasal DAILY PRN 05/28/25 05/28/25 Unknown History mcg/actuation nasal Allergy Symptoms spray,suspension lactulose 10 gram/15 mL oral 15 ml PO DAILY PRN constipation 05/28/25 05/28/25 Unknown History solution levothyroxine 50 mcg tablet 50 mcg PO DAILY@0600 05/28/25 05/28/25 05/28/25 History methotrexate sodium 2.5 mg tablet 20 mg PO MO 05/28/25 05/28/25 05/27/25 History Physical Exam Vital Signs and Narrative: Vital Signs: Last Vital Signs Temp 97.8 F 05/28/25 16:02 Pulse 63 05/28/25 16:02 Resp 26 H 05/28/25 16:02 BP 174/52 H 05/28/25 16:02 Pulse Ox 99 05/28/25 16:02 O2 Del Method Room Air 05/28/25 16:02 BMI result Body Mass Index 26.4 Results Labs 05/29/25 04:04 05/29/25 04:04 Labs: Laboratory Results - last 24 hr 05/28/25 05/28/25 05/28/25 12:13 12:58 13:24 MCV 79.7 L MCH 24.5 L MCHC 30.7 L RDW 18.0 H Plt Count 203 MPV 11.8 Immature Gran % (Auto) 0.2 Neut % (Auto) 50.2 Lymph % (Auto) 23.6 [place] % (Auto) 7.8 Eos % (Auto) 17.8 H Baso % (Auto) 0.4 Lymph # (Auto) 1.9 [place] # (Auto) 0.6 Eos # (Auto) 1.5 H Baso # (Auto) 0.0 Abs Immat Gran (auto) 0.02 Absolute Neuts (auto) 4.1 Absolute Nucleated RBC 0.000 Nucleated RBC % (auto) 0.0 PT 12.2 INR 1.1 APTT 25.4 L Anion Gap 11 L Estim Creat Clear Calc 47.9 Estimated GFR 60 Random Glucose 104 Calcium 8.6 D Magnesium 2.4 Total Bilirubin 0.3 Direct Bilirubin 0.2 AST 24 ALT 12 Alkaline Phosphatase 60 Total Protein 6.7 Albumin 3.7 Lipase 29 Urine Color Yellow Urine Appearance Clear Urine pH 6.5 Ur Specific [place] <= 1.005 Urine Protein Negative Urine Glucose (UA) Negative Urine Ketones Negative Urine Blood Negative Urine Nitrite Negative Ur Leukocyte Esterase Trace H Urine RBC 0-2 Urine WBC 0-5 Ur Squamous Epith Cells 0-2 Urine Bacteria None Seen Hyaline Casts 0-2 Stool Occult Blood POSITIVE Imaging Radiologist's Impressions: Impressions Abdomen/Pelvis CT 05/28/25 13:22 IMPRESSION: 1. No contrast extravasation is seen in the GI tract suggest active bleeding. 2. Wall thickening of the distal esophagus. Further evaluation with barium swallow or upper endoscopy is recommended. Electronically signed by: Bony Ricks MD 05/28/2025 03:02 PM EDT Assessment and Plan (1) GI bleed: Status: Acute (2) Acute blood loss anemia: Status: Acute Plan 80/ F with epigatric pain, n/v and melana, acute blood loss anemia, suspect upper Gi bleed Upper GI Bleed Acute blood loss anemia -GI consult -IV PPI -stop ASA and Plavix -liquid diet -NPO after midnight for possible EGD Hypothyroidism Levothyroxine HTN -resume meds after med rec (Coreg, HCTZ, Olmesartan) HLD -statin COD, no exacerbation -Inhalers DVT prevention: compression device, Full code Quality Stroke Does the patient have a stroke diagnosis?: No VTE Prior VTE?: Yes VTE Risk Level:: Medical - moderate - high VTE Device Contraindication: N/A - Device Ordered VTE Drug Contraindication: Treatment Not Indicated (GIB and contraindicated)
--- NOTE | 2025-05-28 17:06 | PHA.MEDREC ---
Addendum entered by Reji Mcgowan enriqueta 05/28/25 17:19: Med rec reviewed Original Note: Pharmacy Consult ? Medication Reconciliation Pharmacy has completed the medication reconciliation. Spoke to patient to confirm med list. Patient states she is not taking Acetaminophen 650 mg, Albuterol HFA, Folic acid 1 mg, Gabapentin 100 mg, Montelukast 10 mg, Olmesartan -HCTZ 40-12.5 mg, last fill date 04/29/25 for 90 days *patient states she was never taking*, Pantoprazole 40 mg, and Slow FE 65 mg (stopped 2 weeks ago). Patient confirmed Vitamin D3 125 mcg every Tuesday and , Methotrexate sodium 10 mg (8x 2.5 mg) every Tuesday, last dose was yesterday. Patient states she had all her morning medications today.
[2025-05-28] MEDS: Lactated Ringers 1,000 ML 100 ML IVCONT (17:19)
--- NOTE | 2025-05-28 17:26 | PC.NURSE ---
medication administered per provider order. LR infusing @ 100mls/hr per provider order. pending bed assignment.
--- NOTE | 2025-05-28 18:57 | PC.NURSE ---
pt remains hypertensive despite taking previous home medications [employer]. provider notified/aware. per dr. holloway, 5mg amlodipine ordered by this RN per verbal order. medication administered per provider order. effectiveness pending. pt's daughter also bedside - update provided to pt's family member. pt otherwise offers no complaints. denies pain. sitting up/eating full liquid diet. plan of care ongoing. call cherry placed within reach.
--- NOTE | 2025-05-28 21:52 | PC.NURSE ---
report given to ROSITA Lanier in overflow at this time.
[2025-05-28 22:08] LABS: MANUAL DIFF FLAG NO
[2025-05-28 22:10] LABS: Hematocrit 26.8 % (37.0-47.0); Hemoglobin 8.1 g/dl (12.0-16.0); Imm Gran Abs Auto 0.02 X10*3/uL (0.00-0.03); Imm Gran Pct Auto 0.3 % (0.0-0.4); Lymphocytes Absolute Auto 1.9 X10*3/uL (1.2-4.9); Mean Corpuscular HGB Conc 30.2 g/dl (31.0-35.0); Mean Corpuscular Hemoglobin 23.9 pg (27.0-33.0); Mean Corpuscular Volume 79.1 fL (80.0-98.0); NRBC Abs Auto 0.000 X10*3/uL (0.0-0.012); NRBC Pct Auto 0.0 /100WBC (0.0-0.2); Platelet Count 190 X10*3/uL (160-400); Red Blood Count 3.39 X10*6/uL (4.20-5.50); White Blood Count 7.9 X10*3/uL (4.8-10.8)
--- NOTE | 2025-05-28 22:15 | PC.NURSE ---
Assumed care of pt at 1010. PT a/ox4, full code, Using cane to ambulate. Vitals- temp-98.1, 70hr, bp 193/84 (first attempt 197/86), 96% on RA, 17rr. PT primarily [place] leone[place] speaking but able to understands macedonian and speaks some macedonian. Granddaughter at bedside who reports that PT uses CPAP machine at home. Notified hospitalist, Dr. Adolfo Gupta of PT blood pressure and CPAP use. Plan of care ongoing.
--- NOTE | 2025-05-28 23:23 | PC.NURSE ---
Rt at bedside
[2025-05-29] VITALS (15 sets, daily range): BP systolic 111–189; BP diastolic 42–89; PULSE 55–88; RESP 12–22; TEMP 36.1–36.7; O2SAT 96–100; BMI 26.4
--- NOTE | 2025-05-29 02:07 | PC.NURSE ---
PT assisted OOB to the bathroom. using cane with a steady gait. VSS, pt placed back on Cpap and fluids. Offering no complaints at this time. Safety precautions in place- bed alarm on, call cherry within reach. Plan of care ongoing
[2025-05-29] MEDS: Lactated Ringers 1,000 ML 100 ML IVCONT ×2 (02:23→11:57)
--- NOTE | 2025-05-29 04:00 | PC.NURSE ---
Phlebotomy at bedside for morning labs
[2025-05-29 05:04] LABS: MANUAL DIFF FLAG NO
[2025-05-29 05:08] LABS: Hematocrit 25.5 % (37.0-47.0); Hemoglobin 7.8 g/dl (12.0-16.0); Imm Gran Abs Auto 0.02 X10*3/uL (0.00-0.03); Imm Gran Pct Auto 0.3 % (0.0-0.4); Lymphocytes Absolute Auto 1.6 X10*3/uL (1.2-4.9); Mean Corpuscular HGB Conc 30.6 g/dl (31.0-35.0); Mean Corpuscular Hemoglobin 24.0 pg (27.0-33.0); Mean Corpuscular Volume 78.5 fL (80.0-98.0); NRBC Abs Auto 0.000 X10*3/uL (0.0-0.012); NRBC Pct Auto 0.0 /100WBC (0.0-0.2); Platelet Count 183 X10*3/uL (160-400); Red Blood Count 3.25 X10*6/uL (4.20-5.50); White Blood Count 7.1 X10*3/uL (4.8-10.8)
[2025-05-29 05:27] LABS: Anion Gap 12 (12-20); Blood Urea Nitrogen 10 mg/dL (9-16); Calcium 8.2 mg/dL (8.4-10.2); Carbon Dioxide 23 mmol/L (22-29); Chloride 111 mmol/L (96-108); Creatinine Clr Calc Pharmacy 54.6; Estimated Glomerular Filt Rate > 60; Potassium 3.6 mmol/L (3.3-5.1); Sodium 142 mmol/L (135-145)
--- NOTE | 2025-05-29 06:06 | PC.NURSE ---
request sent to pharmacy via tiger text for missing meds in pyxsis. awaiting delivery
--- NOTE | 2025-05-29 09:40 | HO.PM.IMPN ---
Subjective Subjective Date of Service: 05/29/25 Interval History: f/u on acute blood loss anemia, gib Physical Exam Vital Signs: Vital Signs: Last Vital Signs Temp 97.0 F 05/29/25 08:00 Pulse 66 05/29/25 08:03 Resp 18 05/29/25 08:00 BP 167/54 H 05/29/25 08:03 Pulse Ox 99 05/29/25 08:00 O2 Del Method Room Air 05/29/25 08:00 BMI result Body Mass Index 26.4 General: AO X 3, no acute distress Resp: CTA bilateral CVS: S1,S2,RRR GI: +BS, NT, no distention Skin: No rash Neuro: motor grossly intact Psych: appropriate affect Objective Data Active Medications Acetaminophen (Acetaminophen 325 Mg Tablet) 650 mg PO Q6H PRN PRN Reason: Pain, Mild 1-3,fever,headache Atorvastatin Calcium (Atorvastatin Calcium 80 Mg Tablet) 80 mg PO BEDTIME ARELIS Calcium Carbonate (Calcium Carbonate 750 Mg Tab.Chew) 750 mg PO Q4H PRN PRN Reason: Heartburn Carvedilol (Carvedilol 6.25 Mg Tablet) 6.25 mg PO BID [facility]; Protocol Last Admin: 05/29/25 08:03 Dose: 6.25 mg Documented By: DONA Fluticasone Propionate (Fluticasone Propionate Nasal 16 Gm [place]) 2 spray NOSTRIL-B DAILY PRN PRN Reason: Allergy Symptoms Lactated Ringer's (Lr) 1,000 mls @ 100 mls/hr IVCONT .Q10H [facility] Last Admin: 05/29/25 02:23 Dose: 100 mls/hr Documented By: JANN Lactulose (Lactulose 20 Gm/30 Ml Solution) 10 gm PO DAILY PRN PRN Reason: Constipation Levothyroxine Sodium (Levothyroxine Sodium 50 Mcg Tablet) 50 mcg PO DAILY@0600 [facility] Last Admin: 05/29/25 07:04 Dose: 50 mcg Documented By: JANN Magnesium Hydroxide (Milk Of Magnesia 30 Ml Oral.Susp) 30 ml PO DAILY PRN PRN Reason: Constipation Melatonin (Melatonin 3 Mg Tablet) 6 mg PO BEDTIME PRN PRN Reason: Insomnia Methotrexate (Methotrexate Sodium 2.5 Mg Tablet) 20 mg PO Mo@0900 [facility] Nitroglycerin (Nitroglycerin 0.4 Mg Tab.Subl) 0.4 mg SUBLINGUAL Q5MX3 PRN PRN Reason: Chest Pain Non-Formulary Medication (Cholecalciferol (Vitamin D3)) 125 mcg PO MoTh@0900 [facility] Ondansetron HCl (Ondansetron Hcl 4 Mg/2 Ml Vial) 4 mg IVPUSH Q8H PRN PRN Reason: Nausea and Vomiting Pantoprazole Sodium (Pantoprazole Sodium 40 Mg/10 Ml Vial) 40 mg IVPUSH BID@0630,1630 [facility] Last Admin: 05/29/25 06:11 Dose: 40 mg Documented By: JANN Sodium Chloride (0.9 % Sodium Chloride Flush 3 Ml Syringe) 3 ml IVFLUSH QSHIFT [facility] Last Admin: 05/29/25 08:02 Dose: Not Given Documented By: DONA Non-Admin Reason: IV Running Labs 05/29/25 04:04 05/29/25 04:04 Labs: Laboratory Results - last 24 hr 05/28/25 05/28/25 05/28/25 12:13 12:58 13:24 MCV 79.7 L MCH 24.5 L MCHC 30.7 L RDW 18.0 H Plt Count 203 MPV 11.8 Immature Gran % (Auto) 0.2 Neut % (Auto) 50.2 Lymph % (Auto) 23.6 [place] % (Auto) 7.8 Eos % (Auto) 17.8 H Baso % (Auto) 0.4 Lymph # (Auto) 1.9 [place] # (Auto) 0.6 Eos # (Auto) 1.5 H Baso # (Auto) 0.0 Abs Immat Gran (auto) 0.02 Absolute Neuts (auto) 4.1 Absolute Nucleated RBC 0.000 Nucleated RBC % (auto) 0.0 PT 12.2 INR 1.1 APTT 25.4 L Anion Gap 11 L Estim Creat Clear Calc 47.9 Estimated GFR 60 Random Glucose 104 Calcium 8.6 D Magnesium 2.4 Total Bilirubin 0.3 Direct Bilirubin 0.2 AST 24 ALT 12 Alkaline Phosphatase 60 Total Protein 6.7 Albumin 3.7 Lipase 29 Urine Color Yellow Urine Appearance Clear Urine pH 6.5 Ur Specific [place] <= 1.005 Urine Protein Negative Urine Glucose (UA) Negative Urine Ketones Negative Urine Blood Negative Urine Nitrite Negative Ur Leukocyte Esterase Trace H Urine RBC 0-2 Urine WBC 0-5 Ur Squamous Epith Cells 0-2 Urine Bacteria None Seen Hyaline Casts 0-2 Stool Occult Blood POSITIVE 05/28/25 05/29/25 21:56 04:04 MCV 79.1 L 78.5 L MCH 23.9 L 24.0 L MCHC 30.2 L 30.6 L RDW 18.0 H 17.9 H Plt Count 190 183 MPV 11.8 11.5 Immature Gran % (Auto) 0.3 0.3 Neut % (Auto) 47.3 49.2 Lymph % (Auto) 24.0 22.9 [place] % (Auto) 9.9 8.1 Eos % (Auto) 17.9 H 19.1 H Baso % (Auto) 0.6 0.4 Lymph # (Auto) 1.9 1.6 [place] # (Auto) 0.8 0.6 Eos # (Auto) 1.4 H 1.4 H Baso # (Auto) 0.1 0.0 Abs Immat Gran (auto) 0.02 0.02 Absolute Neuts (auto) 3.7 3.5 Absolute Nucleated RBC 0.000 0.000 Nucleated RBC % (auto) 0.0 0.0 PT INR APTT Anion Gap 12 Estim Creat Clear Calc 54.6 Estimated GFR > 60 Random Glucose 93 Calcium 8.2 L Magnesium Total Bilirubin Direct Bilirubin AST ALT Alkaline Phosphatase Total Protein Albumin Lipase Urine Color Urine Appearance Urine pH Ur Specific [place] Urine Protein Urine Glucose (UA) Urine Ketones Urine Blood Urine Nitrite Ur Leukocyte Esterase Urine RBC Urine WBC Ur Squamous Epith Cells Urine Bacteria Hyaline Casts Stool Occult Blood Assessment and Plan (1) GI bleed: Status: Acute (2) Acute blood loss anemia: Status: Acute Plan 80/ F with epigatric pain, n/v and melana, acute blood loss anemia, suspect upper Gi bleed Upper GI Bleed Acute blood loss anemia, H/H slightly down today, no active bleed -GI consult pending -IV Protonix 40 bid -stopped ASA and Plavix -NPO pending GI eval Hypothyroidism Levothyroxine HTN -resume Coreg, add Norvasc 5 mg daily HLD -statin COD, no exacerbation -Inhalers DVT prevention: compression device, Full code Quality Stroke Does the patient have a stroke diagnosis?: No VTE Prior VTE?: Yes VTE Risk Level:: Medical - moderate - high VTE Device Contraindication: N/A - Device Ordered VTE Drug Contraindication: Treatment Not Indicated
--- NOTE | 2025-05-29 10:35 | PC.NURSE ---
PT A&O X4 vss NAD No complaints at this time.
--- NOTE | 2025-05-29 10:35 | MHC.CM.PN ---
CM met with Patient at bedside and addressed IMM with her, providing Patient with the original and a copy will be placed on the chart. Patient lives in a house with her Daughter/HCP/Kimberly and she uses a cane to assist with mobility. Patient receives quarterly Nurse visits through [facility] and home/resume said services is the goal. CM has initiated and will follow for dc planning. PCP is Dr. Jeni Garcia and Daughter will transport to home at time of dc.
--- NOTE | 2025-05-29 12:00 | PC.NURSE ---
Pt came out of where she was assisted to by her son. She appeared with two 1/2 inch skin tears on right wrist she sustained when leaving the toilet. Telfa dsg applied.
--- NOTE | 2025-05-29 12:40 | HO.ANESPROP2 ---
Documented by User: Aylin Najera NP 05/29/25 13:40 HPI - Anesthesia Eval Consult details Narrative: 80 yr old female for Upper Endoscopy w/ Gold Probe No CP/SOB with very limited activity, climbs 10-15 stairs 1-2 times daily. GIB with 05/29/25 H/H: 7.8/25.5; plavix/ASA on hold starting today. H/O [place] 12/2024 while in [place], stented per cardiology note 02/2025; echo done 12/2024 is in [place]. 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 Asthma: well controlled BEAU: on CPAP PMFSH Active Problems Active Problems: All Active Problems Acute blood loss anemia (Acute) Anemia (Acute) GI bleed (Acute) Dysphagia (Acute) Atherosclerotic cardiovascular disease (Acute) Lumbar spondylosis (Acute) Post laminectomy syndrome (Acute) Lumbar radiculopathy (Acute) Pleural effusion (Acute) Cellulitis (Acute) Limb swelling (Acute) Lung crackles (Acute) Chest pain (Acute) Chest pain (Acute) Leg pain, bilateral (Acute) PAD (peripheral artery disease) (Acute) Varicose veins of left lower extremity with inflammation (Acute) Asthma (Acute) Chronic allergic rhinitis (Acute) Atelectasis of left lung (Acute) Past Medical History Medical History (Updated 05/29/25 @ 13:41 by Ruth Ann Wallace RN) GERD (gastroesophageal reflux disease) COPD (chronic obstructive pulmonary disease) Hypertension Myocardial infarction Dysphagia Pleural effusion Cellulitis Limb swelling Chest pain Asthma Chronic allergic rhinitis Atelectasis of left lung Family History Family History Father Lung cancer Mother Throat cancer Family history of problems with anesthesia: No Surgical History Surgical History (Updated 05/29/25 @ 13:47 by Ruth Ann Wallace RN) Hx of hand surgery Hx of cholecystectomy Hx of appendectomy History of back surgery History of left shoulder replacement Hx of shoulder replacement History of total right knee replacement (TKR) History of Problems with Anesthesia: No Social History Social History Patient Tobacco Use Status: Former Tobacco user Tobacco use type: Cigarette Years Smoked: 4 years Smoked in Last 30 Days: No Use of substances other than those prescribed or required for medical reasons: No Are you DNR?: No Advance Directives: Yes Advance Directives Information Provided: Yes Advance Directives on File: No Advance Directives Date on File: 05/29/25 Do you have a plan to hurt others: No Plan Nutrition Risks: No Nutritional Risk service: No Meds Allergies Allergy/AdvReac Type Severity Reaction Status Date / Time codeine (CODEINE) Allergy Mild Rash Verified 05/28/25 11:52 morphine (MORPHINE) Allergy Mild Hallucinati Verified 05/28/25 11:52 ons oxycodone (Percocet) Allergy Mild Hives Verified 05/28/25 11:52 tramadol AdvReac Severe Headache Verified 05/28/25 11:52 Active Medications: Current Medications Acetaminophen (Acetaminophen 325 Mg Tablet) 650 mg PO Q6H PRN PRN Reason: Pain, Mild 1-3,fever,headache Atorvastatin Calcium (Atorvastatin Calcium 80 Mg Tablet) 80 mg PO BEDTIME ARELIS Calcium Carbonate (Calcium Carbonate 750 Mg Tab.Chew) 750 mg PO Q4H PRN PRN Reason: Heartburn Carvedilol (Carvedilol 6.25 Mg Tablet) 6.25 mg PO BID [facility]; Protocol Last Admin: 05/29/25 08:03 Dose: 6.25 mg Fluticasone Propionate (Fluticasone Propionate Nasal 16 Gm [place]) 2 spray NOSTRIL-B DAILY PRN PRN Reason: Allergy Symptoms Lactated Ringer's (Lr) 1,000 mls @ 100 mls/hr IVCONT .Q10H [facility] Last Admin: 05/29/25 11:57 Dose: 100 mls/hr Lactulose (Lactulose 20 Gm/30 Ml Solution) 10 gm PO DAILY PRN PRN Reason: Constipation Levothyroxine Sodium (Levothyroxine Sodium 50 Mcg Tablet) 50 mcg PO DAILY@0600 [facility] Last Admin: 05/29/25 07:04 Dose: 50 mcg Magnesium Hydroxide (Milk Of Magnesia 30 Ml Oral.Susp) 30 ml PO DAILY PRN PRN Reason: Constipation Melatonin (Melatonin 3 Mg Tablet) 6 mg PO BEDTIME PRN PRN Reason: Insomnia Methotrexate (Methotrexate Sodium 2.5 Mg Tablet) 20 mg PO Mo@0900 [facility] Nitroglycerin (Nitroglycerin 0.4 Mg Tab.Subl) 0.4 mg SUBLINGUAL Q5MX3 PRN PRN Reason: Chest Pain Non-Formulary Medication (Cholecalciferol (Vitamin D3)) 125 mcg PO MoTh@0900 [facility] Ondansetron HCl (Ondansetron Hcl 4 Mg/2 Ml Vial) 4 mg IVPUSH Q8H PRN PRN Reason: Nausea and Vomiting Pantoprazole Sodium (Pantoprazole Sodium 40 Mg/10 Ml Vial) 40 mg IVPUSH BID@0630,1630 [facility] Last Admin: 05/29/25 06:11 Dose: 40 mg Sodium Chloride (0.9 % Sodium Chloride Flush 3 Ml Syringe) 3 ml IVFLUSH QSHIFT [facility] Last Admin: 05/29/25 08:02 Dose: Not Given Home Medications ?Medication ?Instructions ?Recorded ?Confirmed ?Last Taken ?Type inhalational spacing device #1 ea 07/16/20 11/28/24 Unknown History nebulizers 10/28/22 11/28/24 Unknown History aspirin 81 mg tablet,delayed 81 mg PO DAILY 01/28/25 05/28/25 05/28/25 History release atorvastatin 80 mg tablet 80 mg PO BEDTIME 01/28/25 05/28/25 05/27/25 History clopidogrel 75 mg tablet 75 mg PO DAILY 01/28/25 05/28/25 05/28/25 History famotidine 20 mg tablet 20 mg PO DAILY 01/28/25 05/28/25 05/28/25 History nitroglycerin 0.4 mg sublingual 0.4 mg sublingual NEEDED PRN 01/28/25 05/28/25 05/28/25 History tablet Chest Pain carvedilol 6.25 mg tablet 6.25 mg PO BID 05/28/25 05/28/25 05/28/25 History cholecalciferol (vitamin D3) 125 125 mcg PO MOTH 05/28/25 05/28/25 05/27/25 History mcg (5,000 unit) capsule fluticasone propionate 50 2 spray intranasal DAILY PRN 05/28/25 05/28/25 Unknown History mcg/actuation nasal Allergy Symptoms spray,suspension lactulose 10 gram/15 mL oral 15 ml PO DAILY PRN constipation 05/28/25 05/28/25 Unknown History solution levothyroxine 50 mcg tablet 50 mcg PO DAILY@0600 05/28/25 05/28/25 05/28/25 History methotrexate sodium 2.5 mg tablet 20 mg PO MO 05/28/25 05/28/25 05/27/25 History Exam Height,Weight and Vital Signs: Height 5 ft 5 in Weight 72.1 kg Last Vital Signs Temp 97.0 F 05/29/25 08:00 Pulse 66 05/29/25 08:03 Resp 18 05/29/25 08:00 BP 167/54 H 05/29/25 08:03 Pulse Ox 99 05/29/25 08:00 O2 Del Method Room Air 05/29/25 08:00 Pertinent Lab Results Pertinent Lab Results: Laboratory Tests 05/28/25 05/28/25 05/28/25 12:13 12:58 13:24 WBC 8.2 RBC 3.55 L Hgb 8.7 L D Hct 28.3 L MCV 79.7 L MCH 24.5 L MCHC 30.7 L RDW 18.0 H Plt Count 203 MPV 11.8 Immature Gran % (Auto) 0.2 Neut % (Auto) 50.2 Lymph % (Auto) 23.6 [place] % (Auto) 7.8 Eos % (Auto) 17.8 H Baso % (Auto) 0.4 Lymph # (Auto) 1.9 [place] # (Auto) 0.6 Eos # (Auto) 1.5 H Baso # (Auto) 0.0 Abs Immat Gran (auto) 0.02 Absolute Neuts (auto) 4.1 Absolute Nucleated RBC 0.000 Nucleated RBC % (auto) 0.0 PT 12.2 INR 1.1 APTT 25.4 L Sodium 143 Potassium 3.8 Chloride 112 H Carbon Dioxide 24 Anion Gap 11 L BUN 15 Creatinine 0.90 Estim Creat Clear Calc 47.9 Estimated GFR 60 Random Glucose 104 Calcium 8.6 D Magnesium 2.4 Total Bilirubin 0.3 Direct Bilirubin 0.2 AST 24 ALT 12 Alkaline Phosphatase 60 Troponin I High Sens 2.7 Total Protein 6.7 Albumin 3.7 Lipase 29 Urine Color Yellow Urine Appearance Clear Urine pH 6.5 Ur Specific [place] <= 1.005 Urine Protein Negative Urine Glucose (UA) Negative Urine Ketones Negative Urine Blood Negative Urine Nitrite Negative Ur Leukocyte Esterase Trace H Urine RBC 0-2 Urine WBC 0-5 Ur Squamous Epith Cells 0-2 Urine Bacteria None Seen Hyaline Casts 0-2 Stool Occult Blood POSITIVE 05/28/25 05/29/25 21:56 04:04 WBC 7.9 7.1 RBC 3.39 L 3.25 L Hgb 8.1 L 7.8 L Hct 26.8 L 25.5 L MCV 79.1 L 78.5 L MCH 23.9 L 24.0 L MCHC 30.2 L 30.6 L RDW 18.0 H 17.9 H Plt Count 190 183 MPV 11.8 11.5 Immature Gran % (Auto) 0.3 0.3 Neut % (Auto) 47.3 49.2 Lymph % (Auto) 24.0 22.9 [place] % (Auto) 9.9 8.1 Eos % (Auto) 17.9 H 19.1 H Baso % (Auto) 0.6 0.4 Lymph # (Auto) 1.9 1.6 [place] # (Auto) 0.8 0.6 Eos # (Auto) 1.4 H 1.4 H Baso # (Auto) 0.1 0.0 Abs Immat Gran (auto) 0.02 0.02 Absolute Neuts (auto) 3.7 3.5 Absolute Nucleated RBC 0.000 0.000 Nucleated RBC % (auto) 0.0 0.0 PT INR APTT Sodium 142 Potassium 3.6 Chloride 111 H Carbon Dioxide 23 Anion Gap 12 BUN 10 Creatinine 0.79 Estim Creat Clear Calc 54.6 Estimated GFR > 60 Random Glucose 93 Calcium 8.2 L Magnesium Total Bilirubin Direct Bilirubin AST ALT Alkaline Phosphatase Troponin I High Sens Total Protein Albumin Lipase Urine Color Urine Appearance Urine pH Ur Specific [place] Urine Protein Urine Glucose (UA) Urine Ketones Urine Blood Urine Nitrite Ur Leukocyte Esterase Urine RBC Urine WBC Ur Squamous Epith Cells Urine Bacteria Hyaline Casts Stool Occult Blood Airway Mallampati Class: III TM Dist: >3cm Neck ROM: Limited Loose/Missing/Broken Teeth: No Heart: RRR Lungs: CTAB Assessment and Plan Final Anesthetic Review Family History of Problems with Anesthesia: No History of Problems with Anesthesia: No Documented by User: Yury Zhang MD 05/29/25 16:29 HPI - Anesthesia Eval Consult details Narrative: 80 yr old female for Upper Endoscopy w/ Gold Probe No CP/SOB with very limited activity, climbs 10-15 stairs 1-2 times daily. GIB with 05/29/25 H/H: 7.8/25.5; plavix/ASA on hold starting today. H/O [place] 12/2024 while in [place], stented in [place] per cardiology note 02/2025; echo done 12/2024 is in [place]. We read the echo w traffic lieutenant. The significant findings were: - There was degeneration of the aortic valve, w valve area 1.8 cm2. - There was LVH - LV function was preserved - There was mild DDx with increased LVEDP - There was MV calcification - PAP was probably not elevated. The patient has had no angina since the cath/stent. Also has mesenteric ischemia 2? to superior mesenteric artery stenosis: s/p SMA stenting 03/28/25, complicated by right groin hematoma. Asthma: well controlled BEAU: on CPAP [facility] Past Medical History Medical History (Updated 05/29/25 @ 13:41 by Ruth Ann Wallace RN) GERD (gastroesophageal reflux disease) COPD (chronic obstructive pulmonary disease) Hypertension Myocardial infarction Dysphagia Pleural effusion Cellulitis Limb swelling Chest pain Asthma Chronic allergic rhinitis Atelectasis of left lung Family History Family History Father Lung cancer Mother Throat cancer Surgical History Surgical History (Updated 05/29/25 @ 13:47 by Ruth Ann Wallace RN) Hx of hand surgery Hx of cholecystectomy Hx of appendectomy History of back surgery History of left shoulder replacement Hx of shoulder replacement History of total right knee replacement (TKR) Social History Social History Patient Tobacco Use Status: Former Tobacco user Tobacco use type: Cigarette Years Smoked: 4 years Smoked in Last 30 Days: No Use of substances other than those prescribed or required for medical reasons: No Are you DNR?: No Advance Directives: Yes Advance Directives Information Provided: Yes Advance Directives on File: No Advance Directives Date on File: 05/29/25 Do you have a plan to hurt others: No Plan Nutrition Risks: No Nutritional Risk service: No Meds Allergies Allergy/AdvReac Type Severity Reaction Status Date / Time codeine (CODEINE) Allergy Mild Rash Verified 05/28/25 11:52 morphine (MORPHINE) Allergy Mild Hallucinati Verified 05/28/25 11:52 ons oxycodone (Percocet) Allergy Mild Hives Verified 05/28/25 11:52 tramadol AdvReac Severe Headache Verified 05/28/25 11:52 Home Medications ?Medication ?Instructions ?Recorded ?Confirmed ?Last Taken ?Type inhalational spacing device #1 ea 07/16/20 11/28/24 Unknown History nebulizers 10/28/22 11/28/24 Unknown History aspirin 81 mg tablet,delayed 81 mg PO DAILY 01/28/25 05/28/25 05/28/25 History release atorvastatin 80 mg tablet 80 mg PO BEDTIME 01/28/25 05/28/25 05/27/25 History clopidogrel 75 mg tablet 75 mg PO DAILY 01/28/25 05/28/25 05/28/25 History famotidine 20 mg tablet 20 mg PO DAILY 01/28/25 05/28/25 05/28/25 History nitroglycerin 0.4 mg sublingual 0.4 mg sublingual NEEDED PRN 01/28/25 05/28/25 05/28/25 History tablet Chest Pain carvedilol 6.25 mg tablet 6.25 mg PO BID 05/28/25 05/28/25 05/28/25 History cholecalciferol (vitamin D3) 125 125 mcg PO MOTH 05/28/25 05/28/25 05/27/25 History mcg (5,000 unit) capsule fluticasone propionate 50 2 spray intranasal DAILY PRN 05/28/25 05/28/25 Unknown History mcg/actuation nasal Allergy Symptoms spray,suspension lactulose 10 gram/15 mL oral 15 ml PO DAILY PRN constipation 05/28/25 05/28/25 Unknown History solution levothyroxine 50 mcg tablet 50 mcg PO DAILY@0600 05/28/25 05/28/25 05/28/25 History methotrexate sodium 2.5 mg tablet 20 mg PO MO 05/28/25 05/28/25 05/27/25 History Exam Airway TM Dist: <=3cm Assessment and Plan Assessment Anesthesia Assessment: Anesthesia Plan Discussed and Chart Reviewed Final Anesthetic Review NPO: Yes ASA Class: III and IV Final Preanesthetic Review: No Changes in Pt Med Stat, Meds/Allgs Chart Reviewed, Consent Obtained/Reviewed and Anes Risks/Benef Reviewed Patient Risk: High Procedure Risk: Intermediate Anesthetic Plan Anesthetic Plan: Agree w/ Assess. and Plan and TIVA Disposition: Standard PACU
--- NOTE | 2025-05-29 12:50 | PC.NURSE ---
Report given to short stay nurse. Pt expected to go to procedure around 1:30p
--- NOTE | 2025-05-29 13:28 | PC.NURSE ---
pt transported for EGD
--- NOTE | 2025-05-29 14:04 | MHC.SHP ---
Pre-Procedural Eval Section A - 24 Hr Update-Section A only Date of Service: 05/29/25 The patient is an INPATIENT: No Changes since office visit: No Cold of Flu in the past 2 weeks, No New Medical Problems, No Changes in Medication and No Patient answered all questions The patient has been examined within 24 hours of the surgical procedure. The History & Physical has been completed within 30 days and I have reviewed it.: Yes Section B - Complete if H&P > 30 days Chief Complaint: GI bleeding, anemia Allergies: Allergies Allergy/AdvReac Type Severity Reaction Status Date / Time codeine (CODEINE) Allergy Mild Rash Verified 05/28/25 11:52 morphine (MORPHINE) Allergy Mild Hallucinati Verified 05/28/25 11:52 ons oxycodone (Percocet) Allergy Mild Hives Verified 05/28/25 11:52 tramadol AdvReac Severe Headache Verified 05/28/25 11:52 Plan I have reviewed the history and physical and performed a pertinent physical examination on my patient. No changes have occurred unless specified. Time Spent With Patient Time: Total time managing care of this patient today ____ minutes.
--- NOTE | 2025-05-29 15:08 | PM.OP ---
Brief Operative Note Date of Service: 05/29/25 Pre-op diagnosis: anemia black stools Post-op diagnosis: same Procedure: EGD Surgeon: Rob Jain MD Anesthesia: MAC Was an Occupational Health Physiotherapist used for this Procedure?: No Estimated blood loss (mL): 1 Pathology: other Condition: stable Disposition: PACU
--- NOTE | 2025-05-29 15:09 | PM.EVENT ---
Event Note Date of Service: 05/29/25 Event Note: GI EGD shows mild gastritis, biopsied. Plan for colonoscopy 05/30. Time Spent With Patient Time: Total time managing care of this patient today ____ minutes.
--- NOTE | 2025-05-29 17:10 | PC.NURSE ---
Pt admited from OR, BP is 160/84. Dr aware of pressure and instructed to monitor, no new orders at this time.
[2025-05-29] MEDS: PEG 3350/Na Sulf,Bicarb,Cl/KCL 4,000 ML SOLN.RECON 4000 ML PO (18:17)
[2025-05-29] MEDS: Lactated Ringers 1,000 ML 50 ML IVCONT (19:10)
--- NOTE | 2025-05-30 00:43 | CONS_ITS ---
DATE OF SERVICE: 05/29/2025 REFERRING PHYSICIAN: Dr. Tyler REASON FOR CONSULTATION: Anemia and black stools. HISTORY OF PRESENT ILLNESS: The patient is a pleasant 80-year-old woman who was admitted to the hospital after presenting to the emergency room with complaints of nausea, vomiting, and dark stools. Symptoms have been present for several weeks. There has been no hematemesis or melena. She was evaluated in the emergency department where laboratory studies were obtained showing a hematocrit on admission of 28.3 with a low MCV at 79.7. Her hematocrit has remained relatively stable and was 25.5 this morning. There has been no reported melena since admission. Stool occult blood testing on May 28 was positive. She has had some epigastric pain, but no bobby hematemesis. Her last colonoscopy available in our record shows hyperplastic polyps from 2012. PAST MEDICAL HISTORY: 1. Hypertension. 2. Obstructive sleep apnea. 3. DVT. 4. COPD. 5. Arthritis/collagen vascular disorder. 6. Glaucoma. 7. Pulmonary nodules. 8. Cellulitis. CURRENT MEDICATIONS: List is reviewed in the chart. As an outpatient, she was on aspirin and Plavix, which have been held. FAMILY HISTORY: This is reviewed in the electronic medical record and is noncontributory. SOCIAL HISTORY: There is no current tobacco, alcohol, or substance abuse. REVIEW OF SYSTEMS: SKIN: No pruritus. HEENT: Negative. CARDIOPULMONARY: No shortness of breath or chest pain. GASTROINTESTINAL: As above. GENITOURINARY: Negative. NEUROPSYCHIATRIC: Negative. PHYSICAL EXAMINATION: GENERAL: Shows a pleasant female, lying comfortably in bed. VITAL SIGNS: Reviewed in electronic medical record and are stable. SKIN: Anicteric. HEENT: Shows no scleral icterus. NECK: Without lymphadenopathy or thyromegaly. LUNGS: Clear. HEART: Shows a regular rate and rhythm. S1, S2. No murmur. ABDOMEN: Soft without focal masses or tenderness. Bowel sounds are present. No organomegaly is noted. EXTREMITIES: Without edema. LABORATORY DATA AND IMAGING STUDIES: Reviewed. IMPRESSION: Anemia with black stools and Hemoccult-positive stools. I have discussed upper endoscopy with the patient including risks and benefits of the procedure. She understands these and agrees to proceed. This will be arranged for later today. If this is unrevealing, she may need further evaluation with colonoscopy. MD NIGEL Loco/STALIN LEGER: 05/29/2025 15:14:30 / [id number]
--- NOTE | 2025-05-30 01:27 | OP_ITS ---
DATE OF SERVICE: 05/29/2025 SURGEON: Rob Jain MD INDICATIONS: Anemia and dark stools. PREOPERATIVE DIAGNOSIS: POSTOPERATIVE DIAGNOSIS: PROCEDURE PERFORMED: Upper endoscopy with biopsy. ESTIMATED BLOOD LOSS: COMPLICATIONS: ANESTHESIA: Monitored anesthesia care. ASSISTANTS: SPECIMENS: DESCRIPTION OF PROCEDURE: A history and physical was performed. The risks and benefits of the procedure were explained to the patient. Informed consent was obtained. The patient was placed in the left lateral decubitus position. The Olympus video gastroscope was introduced into the esophagus, stomach, and duodenum. Examination was performed. The scope was removed. She tolerated the procedure well and was returned to the recovery area in stable condition. FINDINGS: Esophagus: The esophagus was normal. There was no esophagitis. Stomach: The stomach showed antral gastritis, which was biopsied. There was no bleeding. No ulcer was identified. Duodenum: The bulb and 2nd portion were normal. IMPRESSION: Gastritis. RECOMMENDATION: 1. Follow up the biopsy results. 2. The patient will be scheduled for colonoscopy due to her significant anemia. Rob Jain MD BC/MODL / [phone]
[2025-05-30 06:38] LABS: Hematocrit 25.3 % (37.0-47.0); Hemoglobin 7.8 g/dl (12.0-16.0); Mean Corpuscular HGB Conc 30.8 g/dl (31.0-35.0); Mean Corpuscular Hemoglobin 23.9 pg (27.0-33.0); Mean Corpuscular Volume 77.4 fL (80.0-98.0); NRBC Abs Auto 0.000 X10*3/uL (0.0-0.012); NRBC Pct Auto 0.0 /100WBC (0.0-0.2); Platelet Count 189 X10*3/uL (160-400); Red Blood Count 3.27 X10*6/uL (4.20-5.50); White Blood Count 6.7 X10*3/uL (4.8-10.8)
[2025-05-30 06:57] LABS: Anion Gap 13 (12-20); Blood Urea Nitrogen 10 mg/dL (9-16); Calcium 8.4 mg/dL (8.4-10.2); Carbon Dioxide 24 mmol/L (22-29); Chloride 108 mmol/L (96-108); Creatinine Clr Calc Pharmacy 46.4; Estimated Glomerular Filt Rate 58; Potassium 4.0 mmol/L (3.3-5.1); Sodium 141 mmol/L (135-145)
[2025-05-30 07:54] VITALS: BP 126/59; PULSE 69; RESP 18; TEMP 36; O2SAT 97
--- NOTE | 2025-05-30 08:28 | HO.ANESPROP2 ---
HPI - Anesthesia Eval Consult details Narrative: For colonoscopy. The patient underwent EGD yesterday. See my extensive preop note. PMFSH Active Problems Active Problems: All Active Problems Acute blood loss anemia (Acute) Anemia (Acute) GI bleed (Acute) Atherosclerotic cardiovascular disease (Acute) Lumbar spondylosis (Acute) Post laminectomy syndrome (Acute) Lumbar radiculopathy (Acute) Lung crackles (Acute) Chest pain (Acute) Leg pain, bilateral (Acute) PAD (peripheral artery disease) (Acute) Varicose veins of left lower extremity with inflammation (Acute) Dysphagia (Acute) Pleural effusion (Acute) Cellulitis (Acute) Limb swelling (Acute) Chest pain (Acute) Asthma (Acute) Chronic allergic rhinitis (Acute) Atelectasis of left lung (Acute) Past Medical History Medical History GERD (gastroesophageal reflux disease) COPD (chronic obstructive pulmonary disease) Hypertension Myocardial infarction Dysphagia Pleural effusion Cellulitis Limb swelling Chest pain Asthma Chronic allergic rhinitis Atelectasis of left lung Family History Family History Father Lung cancer Mother Throat cancer Family history of problems with anesthesia: No Surgical History Surgical History Hx of hand surgery Hx of cholecystectomy Hx of appendectomy History of back surgery History of left shoulder replacement Hx of shoulder replacement History of total right knee replacement (TKR) History of Problems with Anesthesia: No Social History Social History Household Members: Family Housing: House Do you presently have visiting nurse or other home services: Yes ([facility]) Patient Tobacco Use Status: Former Tobacco user Tobacco use type: Cigarette Years Smoked: 4 years Advance Directives Date on File: 05/29/25 service: No Meds Allergies Allergy/AdvReac Type Severity Reaction Status Date / Time codeine (CODEINE) Allergy Mild Rash Verified 05/30/25 08:28 morphine (MORPHINE) Allergy Mild Hallucinati Verified 05/30/25 08:28 ons oxycodone (Percocet) Allergy Mild Hives Verified 05/30/25 08:28 tramadol AdvReac Severe Headache Verified 05/30/25 08:28 Active Medications: Current Medications Acetaminophen (Acetaminophen 325 Mg Tablet) 650 mg PO Q6H PRN PRN Reason: Pain, Mild 1-3,fever,headache Atorvastatin Calcium (Atorvastatin Calcium 80 Mg Tablet) 80 mg PO BEDTIME [facility] Last Admin: 05/29/25 22:04 Dose: 80 mg Calcium Carbonate (Calcium Carbonate 750 Mg Tab.Chew) 750 mg PO Q4H PRN PRN Reason: Heartburn Carvedilol (Carvedilol 6.25 Mg Tablet) 6.25 mg PO BID [facility]; Protocol Last Admin: 05/29/25 22:04 Dose: 6.25 mg Fluticasone Propionate (Fluticasone Propionate Nasal 16 Gm [place]) 2 spray NOSTRIL-B DAILY PRN PRN Reason: Allergy Symptoms Lactated Ringer's (Lr) 1,000 mls @ 50 mls/hr IVCONT .Q20H [facility] [place] Last Admin: 05/29/25 19:12 Dose: Not Given Lactulose (Lactulose 20 Gm/30 Ml Solution) 10 gm PO DAILY PRN PRN Reason: Constipation Levothyroxine Sodium (Levothyroxine Sodium 50 Mcg Tablet) 50 mcg PO DAILY@0600 [facility] [place] Last Admin: 05/30/25 05:59 Dose: 50 mcg Magnesium Hydroxide (Milk Of Magnesia 30 Ml Oral.Susp) 30 ml PO DAILY PRN PRN Reason: Constipation Melatonin (Melatonin 3 Mg Tablet) 6 mg PO BEDTIME PRN PRN Reason: Insomnia Methotrexate (Methotrexate Sodium 2.5 Mg Tablet) 20 mg PO Mo@0900 [facility] Naloxone HCl (Naloxone Hcl 0.4 Mg/Ml Vial) 0.04 mg IVPUSH Q5M PRN PRN Reason: Excessive sedation or RR < 8 Nitroglycerin (Nitroglycerin 0.4 Mg Tab.Subl) 0.4 mg SUBLINGUAL Q5MX3 PRN PRN Reason: Chest Pain Non-Formulary Medication (Cholecalciferol (Vitamin D3)) 125 mcg PO MoTh@0900 [facility] [place] Last Admin: 05/30/25 08:06 Dose: Not Given Ondansetron HCl (Ondansetron Hcl 4 Mg/2 Ml Vial) 4 mg IVPUSH Q8H PRN PRN Reason: Nausea and Vomiting Last Admin: 05/29/25 22:04 Dose: 4 mg Pantoprazole Sodium (Pantoprazole Sodium 40 Mg/10 Ml Vial) 40 mg IVPUSH BID@0630,1630 [facility] [place] Last Admin: 05/30/25 05:59 Dose: 40 mg Sodium Chloride (0.9 % Sodium Chloride Flush 3 Ml Syringe) 3 ml IVFLUSH QSHIFT [facility] [place] Last Admin: 05/30/25 08:02 Dose: Not Given Home Medications ?Medication ?Instructions ?Recorded ?Confirmed ?Last Taken ?Type inhalational spacing device #1 ea 07/16/20 11/28/24 Unknown History nebulizers 10/28/22 11/28/24 Unknown History aspirin 81 mg tablet,delayed 81 mg PO DAILY 01/28/25 05/28/25 05/28/25 History release atorvastatin 80 mg tablet 80 mg PO BEDTIME 01/28/25 05/28/25 05/27/25 History clopidogrel 75 mg tablet 75 mg PO DAILY 01/28/25 05/28/25 05/28/25 History famotidine 20 mg tablet 20 mg PO DAILY 01/28/25 05/28/25 05/28/25 History nitroglycerin 0.4 mg sublingual 0.4 mg sublingual NEEDED PRN 01/28/25 05/28/25 05/28/25 History tablet Chest Pain carvedilol 6.25 mg tablet 6.25 mg PO BID 05/28/25 05/28/25 05/28/25 History cholecalciferol (vitamin D3) 125 125 mcg PO MOTH 05/28/25 05/28/25 05/27/25 History mcg (5,000 unit) capsule fluticasone propionate 50 2 spray intranasal DAILY PRN 05/28/25 05/28/25 Unknown History mcg/actuation nasal Allergy Symptoms spray,suspension lactulose 10 gram/15 mL oral 15 ml PO DAILY PRN constipation 05/28/25 05/28/25 Unknown History solution levothyroxine 50 mcg tablet 50 mcg PO DAILY@0600 05/28/25 05/28/25 05/28/25 History methotrexate sodium 2.5 mg tablet 20 mg PO MO 05/28/25 05/28/25 05/27/25 History Exam Height,Weight and Vital Signs: Height 5 ft 5 in Weight 72.1 kg Last Vital Signs Temp 96.8 F 05/30/25 07:54 Pulse 69 05/30/25 07:54 Resp 18 05/30/25 07:54 BP 126/59 L 05/30/25 07:54 Pulse Ox 97 05/30/25 07:54 O2 Del Method Room Air 05/30/25 07:54 O2 Flow Rate 6 05/29/25 14:50 Pertinent Lab Results Pertinent Lab Results: Laboratory Tests 05/28/25 05/28/25 05/28/25 12:13 12:58 13:24 WBC 8.2 RBC 3.55 L Hgb 8.7 L D Hct 28.3 L MCV 79.7 L MCH 24.5 L MCHC 30.7 L RDW 18.0 H Plt Count 203 MPV 11.8 Immature Gran % (Auto) 0.2 Neut % (Auto) 50.2 Lymph % (Auto) 23.6 [place] % (Auto) 7.8 Eos % (Auto) 17.8 H Baso % (Auto) 0.4 Lymph # (Auto) 1.9 [place] # (Auto) 0.6 Eos # (Auto) 1.5 H Baso # (Auto) 0.0 Abs Immat Gran (auto) 0.02 Absolute Neuts (auto) 4.1 Absolute Nucleated RBC 0.000 Nucleated RBC % (auto) 0.0 PT 12.2 INR 1.1 APTT 25.4 L Sodium 143 Potassium 3.8 Chloride 112 H Carbon Dioxide 24 Anion Gap 11 L BUN 15 Creatinine 0.90 Estim Creat Clear Calc 47.9 Estimated GFR 60 Random Glucose 104 Calcium 8.6 D Magnesium 2.4 Total Bilirubin 0.3 Direct Bilirubin 0.2 AST 24 ALT 12 Alkaline Phosphatase 60 Troponin I High Sens 2.7 Total Protein 6.7 Albumin 3.7 Lipase 29 Urine Color Yellow Urine Appearance Clear Urine pH 6.5 Ur Specific [place] <= 1.005 Urine Protein Negative Urine Glucose (UA) Negative Urine Ketones Negative Urine Blood Negative Urine Nitrite Negative Ur Leukocyte Esterase Trace H Urine RBC 0-2 Urine WBC 0-5 Ur Squamous Epith Cells 0-2 Urine Bacteria None Seen Hyaline Casts 0-2 Stool Occult Blood POSITIVE 05/28/25 05/29/25 05/30/25 21:56 04:04 06:10 WBC 7.9 7.1 6.7 RBC 3.39 L 3.25 L 3.27 L Hgb 8.1 L 7.8 L 7.8 L Hct 26.8 L 25.5 L 25.3 L MCV 79.1 L 78.5 L 77.4 L MCH 23.9 L 24.0 L 23.9 L MCHC 30.2 L 30.6 L 30.8 L RDW 18.0 H 17.9 H 17.9 H Plt Count 190 183 189 MPV 11.8 11.5 11.7 Immature Gran % (Auto) 0.3 0.3 Neut % (Auto) 47.3 49.2 Lymph % (Auto) 24.0 22.9 [place] % (Auto) 9.9 8.1 Eos % (Auto) 17.9 H 19.1 H Baso % (Auto) 0.6 0.4 Lymph # (Auto) 1.9 1.6 [place] # (Auto) 0.8 0.6 Eos # (Auto) 1.4 H 1.4 H Baso # (Auto) 0.1 0.0 Abs Immat Gran (auto) 0.02 0.02 Absolute Neuts (auto) 3.7 3.5 Absolute Nucleated RBC 0.000 0.000 0.000 Nucleated RBC % (auto) 0.0 0.0 0.0 PT INR APTT Sodium 142 141 Potassium 3.6 4.0 Chloride 111 H 108 Carbon Dioxide 23 24 Anion Gap 12 13 BUN 10 10 Creatinine 0.79 0.93 Estim Creat Clear Calc 54.6 46.4 Estimated GFR > 60 58 Random Glucose 93 95 Calcium 8.2 L 8.4 Magnesium Total Bilirubin Direct Bilirubin AST ALT Alkaline Phosphatase Troponin I High Sens Total Protein Albumin Lipase Urine Color Urine Appearance Urine pH Ur Specific [place] Urine Protein Urine Glucose (UA) Urine Ketones Urine Blood Urine Nitrite Ur Leukocyte Esterase Urine RBC Urine WBC Ur Squamous Epith Cells Urine Bacteria Hyaline Casts Stool Occult Blood Narrative Narrative: See my extensive preop note from yesterday. Airway Mallampati Class: III TM Dist: <=3cm Neck ROM: Full Heart: ok. see preop note from yesterday. Lungs: ok Assessment and Plan Assessment Anesthesia Assessment: Anesthesia Plan Discussed and Chart Reviewed Final Anesthetic Review Family History of Problems with Anesthesia: No History of Problems with Anesthesia: No NPO: Yes ASA Class: III and IV Final Preanesthetic Review: No Changes in Pt Med Stat, Meds/Allgs Chart Reviewed, Consent Obtained/Reviewed and Anes Risks/Benef Reviewed Patient Risk: High Procedure Risk: Low Anesthetic Plan Anesthetic Plan: MAC: and Agree w/ Assess. and Plan Disposition: Standard PACU
--- NOTE | 2025-05-30 08:40 | HO.POSTANES ---
Post Anesthesia Evaluation Post Anesthesia Evaluation Date of Service: 05/30/25 Vital Signs: Vital Signs Temp Pulse Resp BP Pulse Ox O2 Del Method 05/30/25 07:54 96.8 F 69 18 126/59 L 97 Room Air 05/29/25 23:48 97 F 61 18 123/57 L 97 Room Air Anesthesia: Monitored Mental Status: Awake Pain Control: Satisfactory Nausea/Vomiting: None Hydration: Adequate Anesthesia-Related Issues: No Anes. Related Issues
--- NOTE | 2025-05-30 09:07 | HO.PM.IMPN ---
Subjective Subjective Date of Service: 05/30/25 Interval History: f/u on acute blood loss anemia, gib EGD yesterday no source of bleed for colonoscopy today H/H stable Physical Exam Vital Signs: Vital Signs: Last Vital Signs Temp 96.8 F 05/30/25 07:54 Pulse 69 05/30/25 07:54 Resp 18 05/30/25 07:54 BP 126/59 L 05/30/25 07:54 Pulse Ox 97 05/30/25 07:54 O2 Del Method Room Air 05/30/25 07:54 O2 Flow Rate 6 05/29/25 14:50 BMI result Body Mass Index 26.4 General: AO X 3, no acute distress Resp: CTA bilateral CVS: S1,S2,RRR GI: +BS, NT, no distention Skin: No rash Neuro: motor grossly intact Psych: appropriate affect Objective Data Active Medications Acetaminophen (Acetaminophen 325 Mg Tablet) 650 mg PO Q6H PRN PRN Reason: Pain, Mild 1-3,fever,headache Atorvastatin Calcium (Atorvastatin Calcium 80 Mg Tablet) 80 mg PO BEDTIME [facility] Last Admin: 05/29/25 22:04 Dose: 80 mg Documented By: GABRIELLE Calcium Carbonate (Calcium Carbonate 750 Mg Tab.Chew) 750 mg PO Q4H PRN PRN Reason: Heartburn Carvedilol (Carvedilol 6.25 Mg Tablet) 6.25 mg PO BID [facility]; Protocol Last Admin: 05/29/25 22:04 Dose: 6.25 mg Documented By: GABRIELLE Fluticasone Propionate (Fluticasone Propionate Nasal 16 Gm [place]) 2 spray NOSTRIL-B DAILY PRN PRN Reason: Allergy Symptoms Lactated Ringer's (Lr) 1,000 mls @ 50 mls/hr IVCONT .Q20H [facility] Last Admin: 05/29/25 19:10 Dose: 50 mls/hr Documented By: GABRIELLE Lactulose (Lactulose 20 Gm/30 Ml Solution) 10 gm PO DAILY PRN PRN Reason: Constipation Levothyroxine Sodium (Levothyroxine Sodium 50 Mcg Tablet) 50 mcg PO DAILY@0600 [facility] Last Admin: 05/30/25 05:59 Dose: 50 mcg Documented By: GABRIELLE Magnesium Hydroxide (Milk Of Magnesia 30 Ml Oral.Susp) 30 ml PO DAILY PRN PRN Reason: Constipation Melatonin (Melatonin 3 Mg Tablet) 6 mg PO BEDTIME PRN PRN Reason: Insomnia Methotrexate (Methotrexate Sodium 2.5 Mg Tablet) 20 mg PO Mo@0900 [facility] Naloxone HCl (Naloxone Hcl 0.4 Mg/Ml Vial) 0.04 mg IVPUSH Q5M PRN PRN Reason: Excessive sedation or RR < 8 Naloxone HCl (Naloxone Hcl 0.4 Mg/Ml Vial) 0.04 mg IVPUSH Q5M PRN PRN Reason: Excessive sedation or RR < 8 Nitroglycerin (Nitroglycerin 0.4 Mg Tab.Subl) 0.4 mg SUBLINGUAL Q5MX3 PRN PRN Reason: Chest Pain Non-Formulary Medication (Cholecalciferol (Vitamin D3)) 125 mcg PO MoTh@0900 [facility] Last Admin: 05/30/25 08:06 Dose: Not Given Documented By: SARAH Non-Admin Reason: npo for procedure Ondansetron HCl (Ondansetron Hcl 4 Mg/2 Ml Vial) 4 mg IVPUSH Q8H PRN PRN Reason: Nausea and Vomiting Last Admin: 05/29/25 22:04 Dose: 4 mg Documented By: GABRIELLE Pantoprazole Sodium (Pantoprazole Sodium 40 Mg/10 Ml Vial) 40 mg IVPUSH BID@0630,1630 [facility] Last Admin: 05/30/25 05:59 Dose: 40 mg Documented By: GABRIELLE Sodium Chloride (0.9 % Sodium Chloride Flush 3 Ml Syringe) 3 ml IVFLUSH QSHIFT [facility] Last Admin: 05/30/25 08:02 Dose: Not Given Documented By: SARAH Non-Admin Reason: IV Running Labs 05/30/25 06:10 05/30/25 06:10 Labs: Laboratory Results - last 24 hr 05/30/25 06:10 MCV 77.4 L MCH 23.9 L MCHC 30.8 L RDW 17.9 H Plt Count 189 MPV 11.7 Absolute Nucleated RBC 0.000 Nucleated RBC % (auto) 0.0 Anion Gap 13 Estim Creat Clear Calc 46.4 Estimated GFR 58 Random Glucose 95 Calcium 8.4 Assessment and Plan (1) GI bleed: Status: Acute (2) Acute blood loss anemia: Status: Acute Plan 80/ F with epigatric pain, n/v and melana, acute blood loss anemia, suspect upper Gi bleed Upper GI Bleed Acute blood loss anemia, H/H slightly down today, no active bleed -EGD 05/29 no source of bleed -IV Protonix 40 bid -stopped ASA and Plavix -Colonoscopy today Hypothyroidism Levothyroxine HTN -resume Coreg, add Norvasc 5 mg daily HLD -statin COD, no exacerbation -Inhalers DVT prevention: compression device, Full code Quality Stroke Does the patient have a stroke diagnosis?: No VTE Prior VTE?: Yes VTE Risk Level:: Medical - moderate - high VTE Device Contraindication: N/A - Device Ordered VTE Drug Contraindication: Treatment Not Indicated
[2025-05-30 09:45] VITALS: BP 117/45; PULSE 68; RESP 18; TEMP 36.1; O2SAT 99
--- NOTE | 2025-05-30 09:45 | PM.OP ---
Brief Operative Note Date of Service: 05/30/25 Pre-op diagnosis: anemia, heme pos stool Post-op diagnosis: same Procedure: colonoscopy Surgeon: Rob Jain MD Was an Investor Relations Director used for this Procedure?: No Estimated blood loss (mL): 0 Pathology: none sent Condition: stable Disposition: PACU
--- NOTE | 2025-05-30 09:46 | PM.EVENT ---
Event Note Date of Service: 05/30/25 Event Note: colonoscopy normal ok to start antiplatelets etc begin iron follow hct small bowel vce if recurrent anemia. Time Spent With Patient Time: Total time managing care of this patient today ____ minutes.
[2025-05-30 10:00] VITALS: BP 135/50; PULSE 60; RESP 18; TEMP 36.6; O2SAT 98
--- NOTE | 2025-05-30 10:12 | OP_ITS ---
DATE OF SERVICE: 05/30/2025 SURGEON: Rob Jain MD INDICATIONS: Anemia, Hemoccult-positive stools, and melena. PREOPERATIVE DIAGNOSIS: POSTOPERATIVE DIAGNOSIS: PROCEDURE PERFORMED: Colonoscopy to the terminal ileum. ESTIMATED BLOOD LOSS: COMPLICATIONS: ANESTHESIA: Monitored anesthesia care. ASSISTANTS: SPECIMENS: DESCRIPTION OF PROCEDURE: A history and physical performed, the risks and benefits of the procedure were explained to the patient. Informed consent was obtained. The patient was placed in the left lateral decubitus position. A digital rectal exam was performed and was found to be normal. The Olympus pediatric video colonoscope was introduced into the rectum and advanced to the cecum. The cecum was identified by transillumination, palpation, and identification of ileocecal valve. Examination was performed. The scope was removed. She tolerated the procedure well and was taken to recovery in stable condition. FINDINGS: The terminal ileum was examined and appeared normal. The visualized colonic mucosa was within normal limits without evidence of masses or ulcers. No polyps were identified. Retroflexed examination showed small internal hemorrhoids. IMPRESSION: Normal colonoscopy. RECOMMENDATIONS: 1. Follow up as needed. 2. Anticoagulation may be resumed as needed. 3. She should have further monitoring of her hematocrit and iron studies as an outpatient and if recurrent anemia is noted, small bowel capsule endoscopy will be arranged. . MD NIGEL Loco/STALIN / [phone]
[2025-05-30 10:38] VITALS: BP 140/69; PULSE 60; RESP 14; TEMP 36.2; O2SAT 97
--- NOTE | 2025-05-30 11:05 | P.DS_ITS ---
DS: Providers Provider Date of Service: 05/30/25 Date of admission: 05/28/25 16:05 Date of discharge: 05/30/25 Primary care physician: Jeni Garcia MD Consults: 05/28/25 16:50 Consult to Gastroenterology Routine Consulting Provider: Pioneer Malvin Galaviz Reason for consultation: GIB, epig pain, Has provider been notified: No DS: Diagnosis Discharge Diagnosis (1) GI bleed: Status: Acute (2) Acute blood loss anemia: Status: Acute DS: Summary Hospital Course Hospital Course: admission hpi Chief Complaint: Abd pain, melana 80/F with 1. Hypertension. 2. Obstructive sleep apnea. DVT. 5. COPD. 6. Inflammatory arthritis/collagen vascular disorder. 7. Glaucoma. 8. Pulmonary nodules who presents with epigastric and upper abdominal pain for 2 to 3 days, associated with nasuea and vomitting and dark stools. She was at a dental visit when she was sent to the ED. She is slightly tachycardic HR110, Hemogoblin is 8.7, previsoulsy [address] of [address] year. CT of abdomen and pelvis 1. No contrast extravasation is seen in the GI tract suggest active bleeding.b 2. Wall thickening of the distal esophagus. Further evaluation with barium swallow or upper endoscopy is recommended. hospital course 80/ F with epigatric pain, n/v and melana, acute blood loss anemia, Hematocrit was 28 when she presented and dropped to 25 the next day probably from IVF and remains 25, was not transfused, suspect upper Gi bleed however she had EGD on 05/29 and there was no source of bleeding, the following day she had colonoscopy also showing no bleeding source. She was treated with IV PPI but presently no indication for PPI, ASA and Plavix were on hold but will be resumed per GI, diet is advanced to regular diet. Will have repeat CBC on outpatient basis and follow up with Dr. Jain To resume all other chronic medicaitons Time Attestation Discharge Coordination Time (in mins): 45 Quality: Safe Use of Opioids Does Pt have an Active Cancer Diagnosis on the Problem List?: No Quality: Stroke Does the patient have a stroke diagnosis?: No Physical Exam Vital Signs: Vital Signs: Last Vital Signs Temp 97.2 F 05/30/25 10:38 Pulse 60 05/30/25 10:38 Resp 14 05/30/25 10:38 BP 140/69 H 05/30/25 10:38 Pulse Ox 97 05/30/25 10:38 O2 Del Method Room Air 05/30/25 10:38 O2 Flow Rate 6 05/29/25 14:50 BMI result Body Mass Index 26.4 General: AO X 3, no acute distress Resp: CTA bilateral CVS: S1,S2,RRR GI: +BS, NT, no distention Skin: No rash Neuro: motor grossly intact Psych: appropriate affect DS: Data Data Completed and Pending Pending studies at discharge: Pending at discharge 05/29/25 15:00 Surgical [PTH] Routine Labs on day of discharge: Laboratory Results - last 24 hr 05/30/25 06:10 WBC 6.7 RBC 3.27 L Hgb 7.8 L Hct 25.3 L MCV 77.4 L MCH 23.9 L MCHC 30.8 L RDW 17.9 H Plt Count 189 MPV 11.7 Absolute Nucleated RBC 0.000 Nucleated RBC % (auto) 0.0 Sodium 141 Potassium 4.0 Chloride 108 Carbon Dioxide 24 Anion Gap 13 BUN 10 Creatinine 0.93 Estim Creat Clear Calc 46.4 Estimated GFR 58 Random Glucose 95 Calcium 8.4 Discharge Plan Discharge Anticipated Discharge Date/Time: 05/30/25 11:02 Patient Disposition: Home, Self-Care Discharge Diagnosis: Acute blood loss anemia Referrals: Jeni Garcia MD [Primary Care Provider, Internal Medicine] - 1 Week Discharge Medications: Continued carvedilol 6.25 mg tablet 6.25 mg PO BID levothyroxine 50 mcg tablet 50 mcg PO DAILY@0600 fluticasone propionate 50 mcg/actuation spray,suspension 2 spray intranasal DAILY PRN (Reason: Allergy Symptoms) cholecalciferol (vitamin D3) 125 mcg (5,000 unit) capsule 125 mcg PO MOTH lactulose 10 gram/15 mL solution 15 ml PO DAILY PRN (Reason: constipation) methotrexate sodium 2.5 mg tablet 20 mg PO MO Rx Instructions: TAKE 8 TABLETS ONCE WEEKLY (DME) Catie Knox [facility] Spacer See Rx Instructions .ROUTE DIRECTED Qty: 1 Rx Instructions: As directed (DME) [place] [facility] [place] .Route Rx Instructions: As directed nitroglycerin 0.4 mg tablet, sublingual 0.4 mg sublingual NEEDED PRN (Reason: Chest Pain) famotidine 20 mg tablet 20 mg PO DAILY aspirin 81 mg tablet,delayed release (DR/EC) 81 mg PO DAILY clopidogrel 75 mg tablet 75 mg PO DAILY atorvastatin 80 mg tablet 80 mg PO BEDTIME (DME) back brace Misc See Rx Instructions .Route Qty: 1 0RF Rx Instructions: As directed Discharge Orders: Discharge Order (Routine); Ordered 05/30/25 Ordered By: Ricco Tyler Diet: Advance to usual diet Activity on Discharge: As tolerated Stand Alone Forms: Patient Portal Discharge page Print Language: Irish Care Plan Goals: recovery from anemia Health Concerns: anemia concern for gi bleeding Plan of Treatment: resume all your medications as before follow up with Dr. Jain if you experience any more bleeding call 911 follow up with your [facility] care doctor keya week, call for appointment Assessment: see above
[2025-05-30 12:00] VITALS: BP 140/70; PULSE 65; RESP 16; TEMP 36.2; O2SAT 97
--- NOTE | 2025-05-30 12:05 | MHC.CM.PN ---
PT TO DC HOME TODAY WITH NO SERVICES VIA PRIVATE TRANSPORT
== END 2025-05-30 12:03 | disposition home or self-care (01) | DRG 378 ==
LOC: HO.ED 15:59 → HO.EDOVER 16:08 → HO.S3 05-29 15:27
PROVIDERS: Internal Medicine Gastroenterology; Admitting Provider Internal Medicine; Emergency Provider Emergency Medicine; PCP Internal Medicine; Visit Provider Internal Medicine
PROC: 0DJD8ZZ Inspection of Lower Intestinal Tract, Via Natural or Artificial Opening Endoscopic (ICD-10-PCS; CPT 45378; principal; 2025-05-30 09:00)
DX: K29.71 Gastritis, unspecified, with bleeding (principal); D62 Acute posthemorrhagic anemia; E03.9 Hypothyroidism, unspecified; I10 Essential (primary) hypertension; G47.33 Obstructive sleep apnea (adult) (pediatric); E78.5 Hyperlipidemia, unspecified; J44.9 Chronic obstructive pulmonary disease, unspecified; Z87.891 Personal history of nicotine dependence; Z79.02 Long term (current) use of antithrombotics/antiplatelets; Z79.82 Long term (current) use of aspirin; Z79.631 Long term (current) use of antimetabolite agent; Z79.890 Hormone replacement therapy; Z79.899 Other long term (current) drug therapy
CPT/HCPCS: 36415; 74178; 80048; 80053; 81001; 82248; 82272; 83690; 83735; 84484; 85025; 85027; 85610; 85730; 88305; 88313; 88342; 93005; 94660; 99285; J2003; J2405; J2470; J2704; J7120; Q9967

== ENCOUNTER → 2025-05-28 11:59 | Outpatient (BNV) | payer OTHER, SELFPAY | PROVIDERS: Admitting Provider Internal Medicine; Emergency Provider Emergency Medicine; PCP Internal Medicine; Visit Provider Internal Medicine Cardiovascular Disease | DX: R10.84 Generalized abdominal pain (principal); R07.9 Chest pain, unspecified | CPT/HCPCS: 93010 ==

== ENCOUNTER → 2025-05-28 12:54 | Outpatient (BNV) | payer OTHER, SELFPAY | PROVIDERS: Emergency Provider Emergency Medicine; PCP Internal Medicine; Visit Provider Radiology Diagnostic Radiology | DX: R10.84 Generalized abdominal pain (principal) | CPT/HCPCS: 74178 ==

== ENCOUNTER → 2025-05-28 16:05 | Outpatient (BNV) | payer OTHER, SELFPAY | PROVIDERS: Admitting Provider Internal Medicine; Emergency Provider Emergency Medicine; PCP Internal Medicine; Visit Provider Internal Medicine | DX: K92.2 Gastrointestinal hemorrhage, unspecified (principal); D62 Acute posthemorrhagic anemia | CPT/HCPCS: 99223; 99232 ==

== ENCOUNTER 2025-06-05 11:09 | Outpatient (AMB) | payer OTHER, SELFPAY ==
[2025-06-05 11:28] VITALS: BMI 32.3
--- NOTE | 2025-06-05 11:28 | A.OFFVIS_ITS ---
VS Expanded 06/05/25 11:28 Height 4 ft 10 in Weight 154 lb 12.232 oz BMI 32.3 Intake Visit Reasons: Coronary artery disease Allergies codeine (CODEINE) Allergy (Mild, Verified 06/05/25 14:26) Rash morphine (MORPHINE) Allergy (Mild, Verified 06/05/25 14:26) Hallucinations oxycodone (Percocet) Allergy (Mild, Verified 06/05/25 14:26) Hives tramadol Adverse Reaction (Severe, Verified 06/05/25 14:26) Headache Nutrition Presentation Details: Pt presents for MNT f/u for CAD pt reports working on including iron rich foods due to anemia Pt admits to reducing intake of poultry/beef/eggs due to lack of appetite/nauseous Reports working on including plant based protein/iron rich foods and Having 1-2 c of fairlife milk /day (6-12% iron/day) Iclu Pt reports she is getting iron infusion , and is taking folic acid exercise therapy 2 times/wks at [facility] rehab fluids: water, juices diluted with water 4-6 oz , 4-5 x/day BS Monitoring Most Recent Diabetes Results: Creatinine, (0.5-1.4) 1.16 mg/dL 06/05/25 BUN, (9-16) 13 mg/dL 06/05/25 Sodium, (135-145) 141 mmol/L 06/05/25 Potassium, (3.3-5.1) 4.0 mmol/L 06/05/25 Chloride, (96-108) 111 mmol/L H 06/05/25 Carbon Dioxide, (22-29) 20 mmol/L L 06/05/25 Calcium, (8.4-10.2) 8.7 mg/dL 06/05/25 AST, (5-31) 34 U/L H 06/05/25 ALT, (0-31) 26 U/L 06/05/25 Total Protein, (6.5-8.0) 7.0 g/dL 06/05/25 Albumin, (3.5-5.0) 3.8 g/dL 06/05/25 [facility] Medical History GERD (gastroesophageal reflux disease) COPD (chronic obstructive pulmonary disease) Hypertension Myocardial infarction Dysphagia Pleural effusion Cellulitis Limb swelling Chest pain Asthma Chronic allergic rhinitis Atelectasis of left lung Surgical History Hx of hand surgery Hx of cholecystectomy Hx of appendectomy History of back surgery History of left shoulder replacement Hx of shoulder replacement History of total right knee replacement (TKR) Family History Father Lung cancer Mother Throat cancer Social History Household Members: Family Housing: House Do you presently have visiting nurse or other home services: Yes ([facility]) Patient Tobacco Use Status: Former Tobacco user Tobacco use type: Cigarette Years Smoked: 4 years Advance Directives Date on File: 05/29/25 service: No Assessment & Plan Assessment & Plan (1) Atherosclerotic cardiovascular disease: Code(s): I25.10 - Atherosclerotic heart disease of [place] coronary artery without angina pectoris Category: Medical Plan: Wt: 72 Kg ( 05/10 ), 70 kg (06/10) Est kcal needs as per 25 kcal/kg BW: 1800 (40% carb, 30% protein/fat) Est fluid needs as per 25-30 ml/d: 2200 Est prot per day as per 1 g/kg bw: 70 Recommend fiber intake : 8-10 g per day and gradually increase to 25-28 g per day for women and 35-38 g for men or as tolerated Recommend sodium intake per day : less than 2000 mg Educated patient on: ( R = reviewed V = verbalizes understanding N/R = needs review N/A = not applicable * Food sources of carbohydrate, adequate serving sizes and its role in various health conditions: R V N/R * Differences between complex carbohydrates a simple carbohydrates, role of fiber in diet: R choosing soft foods * Lean protein sources of foods: R * Differences between types of fats and role in diet (mono on saturated fat fatty acids, saturated fatty acids, trans fats): R * Food sources of sodium in salt and healthy modifications for heart health in kidney health: R V R/V * Vitamins and minerals: R V N/R * Healthy plate method concept: R * Physical activity: Benefits a precaution: R V N/R * Hypoglycemia protocol (rule of 15): R V N/R * Dietary prevention of Hyperglycemia: R V R/V Patient Instructions: Include iron rich fruits with fiber (spinach, legumes, raisins, oats) Breakfast: oats with raisins snack fairlife milk (can also have a smoothie made with fairlife milk) Lunch: beans salad or soup with spinach, kale, carrots or same as dinner dinner: root vegetables (sweet potato /vianda) and eggs/eggplant or same as lunch snack: fairlife and peanut butter crackers Coding Level of Care Code Nutr Indiv Subseq (51855) Diagnoses Atherosclerotic cardiovascular disease I25.10 Time Spent (min) 30
--- OUTSIDE RECORDS SUMMARY | 2025-06-05 12:33 | XMS_ITS | Encounter Summary ---
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) Jeni Garcia MD [address] [place] [address] Phone: tel: fax: [facility] [address] [facility] [address] [place] [address] Phone: tel: fax: Referral ID Status Reason Start Date Expiration Date V isits Requested Visits Authorized [id number] Closed Specialty Services Required 06/13/2024 06/13/2025 1 1 Encounter Details Date Type Department Care Team (Late st Contact Info) Description 06/13/2024 Orders Only [facility] MEDICINE [address] [place] [address] Jeni Garcia MD [address] [place] [address] Renal artery stenosis (CMS/HCC); Superior [...] Upcoming Encounters Date Type Department Care Team ([facility] st Contact Info) Description 06/24/2025 10:00 AM EDT Office Visit [facility] MED[facility]INE [address] [place] [phone] Jeni Garcia MD [address] [place], [place] [phone] 07/05/2025 11:45 AM EDT Office Visit [facility] [address] [place], [place] [phone] Jeni Garcia MD [address] [place], [place] [phone] Scheduled Referrals Name Type Priority Associated Diagnoses [...] PM EDT Narrative 06/28/2024 4:28 PM EDT [address] [address] XRay Report Signed Patient: Joan Armendariz MR#: [id number] : 1945 Acct:[id number] Age/Sex: 79 / F ADM Date: 06/28/24 Loc: HO.ED Attending Dr: Ordering Physician: Geovanna Austin Date of Service: 06/28/24 Procedure(s): XR lumbar spine 2-3V Accession Number(s): [id number] cc: Jeni Garcia MD; Geovanna Austin EXAMINATION: [...] 06/28/24 1625 DD/ 1600 TD/TT: 06/28/24 1615 Ply Cutter: Procedure Note Donotuseinterpreter, Image - 06/28/2024 [place] [address] XRay Report Signed Patient: Joan Armendariz RMR#: [id number] : 1945cct:[id number] Age/Sex: 79 / FADM Date: 06/28/24 Loc: HO.ED Attending Dr: Ordering Physician: Geovanna Austin Date of Service: 06/28/24 Procedure(s): XR lumbar spine 2-3V Accession Number(s): [id number] cc: Jeni Garcia MD; Geovanna Austin EXAMINATION: [...] 06/28/24 1625 DD/ 1600 TD/TT: 06/28/24 1615 Ply Cutter: [facility] External Provider IMG XR PROCEDURES Final Result * XR Chest 1 View (06/28/2024 12:52 PM EDT) Anatomical Region Laterality Modality Chest Radiographic Tamiko ging 06/28/2024 12:5 2 PM EDT Narrative 06/28/2024 3:02 PM EDT [address] [address] XRay Report Signed Patient: Joan Armendariz MR#: [id number] : 1945 Acct:[id number] Age/Sex: 79 / F ADM Date: 06/28/24 Loc: HO.ED Attending Dr: Ordering Physician: Geovanna Austin Date of Service: 06/28/24 Procedure(s): XR chest 1V Accession Number(s): [id number] cc: Jeni Garcia MD; Geovanna Austin EXAMINATION: [...] MD 06/28/2024 02:59 PM EDT RP Workstation: Smart GPS Backpack Dictated By: Franklin Lepe MD Signed By: <Electronically signed by Franklin Lepe MD in OV> 06/28/24 1459 DD/ 1252 TD/TT: 06/28/24 1259 Ply Cutter: BETH Procedure Note Donotuseinterpreter, Image - 06/28/2024 [place] [address] XRay Report Signed Patient: Joan Armendariz RMR#: [id number] : 3Acct:[id number] Age/Sex: 79 / FADM Date: 06/28/24 Loc: .ED Attending Dr: Ordering Physician: Geovanna Austin Date of Service: 06/28/24 Procedure(s): XR chest 1V Accession Number(s): [id number] cc: Jeni Garcia MD; Geovanna Austin EXAMINATION: [...] 06/28/24 1459 DD/ 1252 TD/TT: 06/28/24 1259 Ply Cutter: BETH [facility] External Provider IMG XR PROCEDURES Final Result [...] documented as of this encounter Care Teams Ball Maker Relationship Specialty Start Date End Date Jeni Garcia MD [address] [place] [address] PCP - General Family Medicine 12/16/15 documented as of this encounter
--- OUTSIDE RECORDS SUMMARY | 2025-06-05 12:33 | XMS_ITS | Clinical Summary ---
Author Organization [facility] Address [address] [facility] [address] [place] [address] Phone Care Team Providers Care Recovery Engineer Name Role Phone Jeni Garcia MD Primary Care Provider + [phone] Allergies Active Allergy Reactions Criticality Noted Date [...] Only [facility] [address] [place] [phone] Luke Quinn MD Hypertension from Last [...] Visit [facility] [address] [phone] Luke Quinn MD [address] [phone] Health Maintenance Due Date Last Done Comments [...] BLOOD ORDERABLES Final Result [facility] [address] [place] [phone] from Last 3 Months or Most Recently Relevant to Health Maintenance Insurance Dual [place] [facility] Dual [place] Medicaid [place] Care Teams Recovery Engineer Relationship Specialty Start Date End Date Jeni Garcia MD [address] [place] [phone] PCP - General Internal Medicine 08/06/21
--- OUTSIDE RECORDS SUMMARY | 2025-06-05 12:33 | XMS_ITS | Clinical Summary ---
Author Organization [address] [facility] Address [address] [place] [address] Phone Care Team Providers Care Brand Leader Name Role Phone Jeni Garcia MD Primary Care Provider + [phone] Allergies Active Allergy Reactions Criticality Noted Date [...] 1 tablet (10 mg total) by mouth. Active oxyCODONE (OXY-IR) 5 mg immediate release capsule Take by mouth. Active clopidogreL (PLAVIX) 75 mg tablet Take 1 tablet (75 mg total) by mouth 1 (one) time each day. Active olmesartan medoxomil (OLMESARTAN ORAL) Take by mouth. Activ e ferrous sulfate (IRON ORAL) Take by mouth. Act jesus sennosides/docus ate sodium (SENEXON-S ORAL) Take by mouth. Active Active Problems Problem Noted Date Diagnosed Date Post-traumatic osteoarthritis of left knee 01/02 Myocardial infarction ([facility] V24, [facility] V28) 01/02/2025 S/P angioplasty with stent 01/02/2025 Status post total right knee replacement 025 Cholelithiasis 12/03/2024 CKD (chronic kidney disease) , stage III ([facility] V24, [facility] V28) 11/15/2024 Severe obesity (BMI 35.0-39. 9) with comorbidity ([facility] V24, [facility] V28) 11/15/2024 Dental plaque 11/13/2024 Cellulitis 09/04/2024 Fracture of vertebra due to osteoporosis with delayed healing 07/06/2024 Overview (11/15/2024): Xray L-spine on 06/28: L4 fracture/sp T12 vertebral augmentation-previous fx- Leg pain, diffuse, right 06/28/2024 Celiac artery stenosis ([facility] V24) 06/13/2024 Renal artery stenosis ([facility] V24) 06/13/2024 Superior mesenteric artery stenosis ([facility] V24 ) 06/13/2024 Open broken tooth due [...] pain 06/28/2017 Hypothyroidism 06/28/2017 Rheumatoid arthritis, adult ([facility] V24, [facility] V28) 06/28/2017 Degeneration of lumbar intervertebral disc 12/10 Chronic obstructive pulmonar y disease ([facility] V24, [facility] V28) 12/11/2012 Angle-closure glaucoma 09/29/2012 GERD (gastroesophageal reflux disease) 2 Eosinophil count raised 05/15/2012 Hypertension 04/12/2012 Gait instability 04/12/2012 Neck pain 04/12/2012 Encounters Date Type Department Care Team Description 04/10/2025 9:00 AM EDT Office Visit Orthopedic Surgery - [address] [phone] Lazaro Saleh MD Post-traumatic osteoarthritis of left knee (Primary Dx); Gait instability; S/P angioplasty with stent from Last 3 Months Surgical History Surgery Date Site/Laterality Comments SHOULDER SURGERY 01/06/2023 Left PROCEDURE: HISTORICAL SHOULDER SURGERY; COMMENT: RTSA Medical History Medical History Date Comments Heart attack ([facility] V24, [facility] V28) 12/22/19 DURING A CRUISE Social History [...] PM EDT Office Visit Orthopedic Surgery - [place] [address] [facility] [address] [place] [phone] Eloisa Torres NP [address] [address] Health Maintenance Due Date Last Done Comments [...] history exists Hypertension/CHF/CAD Annual BMP Blood Test 05/28/2026 05/28/2025, 11/29/2024 DTaP,Tdap,and Td Vaccines (6 - Td [...] Procedure Name Priority Date/Time Associated Diagnosis Comments [place] ARTHROCENTESIS/ASP IRATION/INJECTION MAJOR JOINT/BURSA W/O U/S GUIDANCE Routine 04/10/2025 9:00 AM EDT Post-traumatic osteoarthritis of left knee from Last 3 Months Results * [place] ARTHROCENTESIS/ASPIRATION/INJECTION MAJOR JOINT/BURSA W/O U/S GUIDANCE (04/10/2025 9:00 AM EDT) Lazaro Christy MD - 04/10/2025 9:00 AM EDT Lazaro [...] Final Result from Last [address] [place] [phone] MEDICAID - [place] [employer] MEDICARE Advance Directives Documents on File Type Date Recorded Patient Director Of Bands Expl anation Health Care Decision (hx) 03/27/2019 [...] (hx) 03/27/2019 AD CEJA DIRECTIVE Care Teams Brand Leader Relationship Specialty Start Date End Date Jeni Garcia MD [address] [place] [phone] PCP - General 05/19/21
== END 2025-06-05 14:46 | disposition home or self-care (01) ==
LOC: HO.ENCR 11:09
PROVIDERS: PCP Internal Medicine; Visit Provider Dietitian, Registered
DX: I25.10 Atherosclerotic heart disease of native coronary artery without angina pectoris (principal)

== ENCOUNTER 2025-06-05 14:16 | Emergency (ER) | payer OTHER, SELFPAY ==
--- NOTE | ~2025-06-05 | XR_ITS ---
EXAMINATION: XR CHEST CLINICAL INFORMATION: chest pain COMPARISON: May 09, 2025 TECHNIQUE: 2 views of the chest were obtained. FINDINGS: Stable linear scarring is present in the lateral left mid third lung zone. There is mild elevation of left hemidiaphragm compared to the prior. Lungs are clear otherwise. Heart size is within normal limits. Reverse shoulder arthroplasty has been performed on the left. Hardware appears intact. Again noted is cement and T12 from kyphoplasty. Mild to moderate multilevel degenerative disc disease is present in the thoracic spine. XR/XR chest 2V IMPRESSION: No acute disease. Electronically signed by: Wild Saleh MD 06/05/2025 04:17 PM EDT
[2025-06-05 14:23] VITALS: BP 143/52; PULSE 73; RESP 15; TEMP 36.5; O2SAT 98; BMI 32.2
--- NOTE | 2025-06-05 14:40 | ECG_ITS ---
Test Reason : CP Blood Pressure : */* mmHG Vent. Rate : 73 BPM Atrial Rate : 73 BPM P-R Int : 144 ms QRS Dur : 78 ms QT Int : 386 ms P-R-T Axes : 29 4 38 degrees QTcB Int : 425 ms Normal sinus rhythm Normal ECG When compared with ECG of 28-May-2025 16:11, No significant change was found Referred By: Alison Gaytan Electronically Signed By: RYAN GRIFFITHS MD
[2025-06-05 15:00] LABS: MANUAL DIFF FLAG NO
[2025-06-05 15:03] LABS: Hematocrit 28.0 % (37.0-47.0); Hemoglobin 8.3 g/dl (12.0-16.0); Imm Gran Abs Auto 0.02 X10*3/uL (0.00-0.03); Imm Gran Pct Auto 0.3 % (0.0-0.4); Lymphocytes Absolute Auto 1.6 X10*3/uL (1.2-4.9); Mean Corpuscular HGB Conc 29.6 g/dl (31.0-35.0); Mean Corpuscular Hemoglobin 23.7 pg (27.0-33.0); Mean Corpuscular Volume 80.0 fL (80.0-98.0); NRBC Abs Auto 0.020 X10*3/uL (0.0-0.012); NRBC Pct Auto 0.3 /100WBC (0.0-0.2); Platelet Count 214 X10*3/uL (160-400); Red Blood Count 3.50 X10*6/uL (4.20-5.50); White Blood Count 7.0 X10*3/uL (4.8-10.8)
[2025-06-05 15:19] VITALS: BP 138/85; PULSE 76; RESP 15; TEMP 36.6; O2SAT 98
--- NOTE | 2025-06-05 15:27 | ED.CHESTPAIN ---
HPI - Chest Pain General Chief Complaint: Chest Pain Stated Complaint: Outpatient response Time Seen by Provider: 06/05/25 15:20 Source: patient and second miller Mode of arrival: wheelchair Limitations: language barrier History of Present Illness ED Provider: HPI narrative: 80-year-old woman reports history of acid reflux, states she was on an exercise bike at a cardiac rehab clinic and started developing as she does described midsternal discomfort and shortness of breath, she states it remains list of acid reflux and by the time she came to the ER she did not have any symptoms. Related Data Home Medications ?Medication ?Instructions ?Recorded ?Confirmed inhalational spacing device #1 ea 07/16/20 11/28/24 nebulizers 10/28/22 11/28/24 aspirin 81 mg tablet,delayed 81 mg PO DAILY 01/28/25 05/28/25 release atorvastatin 80 mg tablet 80 mg PO BEDTIME 01/28/25 05/28/25 clopidogrel 75 mg tablet 75 mg PO DAILY 01/28/25 05/28/25 famotidine 20 mg tablet 20 mg PO DAILY 01/28/25 05/28/25 nitroglycerin 0.4 mg sublingual 0.4 mg sublingual NEEDED PRN 01/28/25 05/28/25 tablet Chest Pain carvedilol 6.25 mg tablet 6.25 mg PO BID 05/28/25 05/28/25 cholecalciferol (vitamin D3) 125 125 mcg PO MOTH 05/28/25 05/28/25 mcg (5,000 unit) capsule fluticasone propionate 50 2 spray intranasal DAILY PRN 05/28/25 05/28/25 mcg/actuation nasal Allergy Symptoms spray,suspension lactulose 10 gram/15 mL oral 15 ml PO DAILY PRN constipation 05/28/25 05/28/25 solution levothyroxine 50 mcg tablet 50 mcg PO DAILY@0600 05/28/25 05/28/25 methotrexate sodium 2.5 mg tablet 20 mg PO MO 05/28/25 05/28/25 Previous Rx's ?Medication ?Instructions ?Recorded back brace #1 ea 07/11/24 Allergies Allergy/AdvReac Type Severity Reaction Status Date / Time codeine (CODEINE) Allergy Mild Rash Verified 06/05/25 14:26 morphine (MORPHINE) Allergy Mild Hallucinati Verified 06/05/25 14:26 ons oxycodone (Percocet) Allergy Mild Hives Verified 06/05/25 14:26 tramadol AdvReac Severe Headache Verified 06/05/25 14:26 Review of Systems Constitutional: Constitutional: Reports as per HPI [facility] Past Medical History Medical History GERD (gastroesophageal reflux disease) COPD (chronic obstructive pulmonary disease) Hypertension Myocardial infarction Dysphagia Pleural effusion Cellulitis Limb swelling Chest pain Asthma Chronic allergic rhinitis Atelectasis of left lung Surgical History Hx of hand surgery Hx of cholecystectomy Hx of appendectomy History of back surgery History of left shoulder replacement Hx of shoulder replacement History of total right knee replacement (TKR) Family History Family History Father Lung cancer Mother Throat cancer Social History Social History Household Members: Family Housing: House Do you presently have visiting nurse or other home services: Yes ([facility]) Patient Tobacco Use Status: Former Tobacco user Tobacco use type: Cigarette Years Smoked: 4 years Smoked in Last 30 Days: No Advance Directives: Yes Advance Directives Information Provided: No Advance Directives on File: No Advance Directives Date on File: 05/29/25 Do you have a plan to hurt others: No Plan service: No Physical Exam Vital Signs: Vital Signs: Last Vital Signs Temp 97.9 F 06/05/25 15:19 Pulse 76 06/05/25 15:19 Resp 15 06/05/25 15:19 BP 138/85 06/05/25 15:19 Pulse Ox 98 06/05/25 15:19 O2 Del Method Room Air 06/05/25 15:19 BMI result Body Mass Index 32.2 Const: Other: Gen: ?Overall well-appearing patient HEENT: PERRLA, EOMI, MMM, Neck: Supple, no LAD CV: RRR, no obvious murmurs appreciated Resp: ?No wheezing rales rhonchi no stridor moving air well Abd: ?Bowel sounds are present, no tenderness no rebound no rigidity MSK: FROM, strength 5/5 all extremities Skin: Warm, dry, intact, Neuro: ?Alert and oriented x3, moving upper and lower extremities symmetrically, no obvious facial asymmetry noted Medications Administered Discontinued Medications Generic Name Dose Route Start Last Admin Trade Name Demetrius PRN Reason Stop Dose Admin Al Hydroxide/Mg Hydroxide 30 ml 06/05/25 15:39 06/05/25 15:49 Magnesium Hydrox/Alum Hydrox 30 Ml Oral.Susp PO 06/05/25 15:40 30 ml ONCE ONE Administration Ondansetron HCl 4 mg 06/05/25 15:39 06/05/25 15:48 Ondansetron Hcl 4 Mg/2 Ml Vial IVPUSH 06/05/25 15:40 4 mg ONCE ONE Administration Medical Decision Making Medical Decision Making MDM Narrative: Patient will be worked up for anemia she has had an admission for anemia and had upper endoscopy she endorses her symptoms as likely due to acid reflux but we will workup for ACS, ECG without any changes to suspect underlying ACS, no evidence for pneumothorax, has had no fevers chills to suspect underlying pneumonia, chest x-ray to evaluate for pneumothorax, mediastinal widening, unlikely for free air Differential Diagnosis Differential Diagnoses: The differential diagnosis associated with the presentation includes (ACS, pneumothorax, aortic dissection, PE, Boerhaave syndrome) Admission/Observation Consideration of admission/observation: Escalation of care including admission/observation considered 2022 Emergency Medicine Coding Guide from [employer] on 06/05/2025 All calculations should be rechecked by clinician prior to use RESULT SUMMARY: 5 Estimated Level of Service Problems: Moderate (4) Risk: High (5) Data: Extensive (5) NARRATIVE MDM: This patient's problem complexity is Moderate as patient: has a new undiagnosed problem with uncertain prognosis but that could be serious. This patient's risk is High due to: overall presentation requiring evaluation for a potentially High-risk process. This patient's data complexity is Extensive due to: -multiple tests ordered -independent interpretation of imaging or EKG INPUTS: Number and Complexity ?> 5 = 4: undiagnosed new problem, uncertain outcome (e) Risk level ?> 4 = High Tests ordered ?> 2 = 2 Tests results reviewed (excluding labs) ?> 1 = 1 Prior external notes reviewed ?> 0 = 0 Assessment requiring and independent historian ?> 0 = No Independent interpretation of tests ?> 1 = Yes Discussed management/test interpretation w/external professional ?> 0 = No Lab Data 06/05/25 14:55 06/05/25 14:55 Labs: Lab Results 06/05/25 Range/Units 14:55 WBC 7.0 (4.8-10.8) X10*3/uL RBC 3.50 L (4.20-5.50) X10*6/uL Hgb 8.3 L (12.0-16.0) g/dl Hct 28.0 L (37.0-47.0) % MCV 80.0 (80.0-98.0) fL MCH 23.7 L (27.0-33.0) pg MCHC 29.6 L (31.0-35.0) g/dl RDW 18.8 H (11.0-16.0) % Plt Count 214 (160-400) X10*3/uL MPV 11.6 (9.4-12.3) fL Immature Gran % (Auto) 0.3 (0.0-0.4) % Neut % (Auto) 59.3 (45-73) % Lymph % (Auto) 23.3 (20-40) % Phelps % (Auto) 8.4 (2-11) % Eos % (Auto) 7.7 H (0-4) % Baso % (Auto) 1.0 (0-2) % Lymph # (Auto) 1.6 (1.2-4.9) X10*3/uL Phelps # (Auto) 0.6 (0.1-1.2) X10*3/uL Eos # (Auto) 0.5 H (0.0-0.4) X10*3/uL Baso # (Auto) 0.1 (0.0-0.2) X10*3/uL Abs Immat Gran (auto) 0.02 (0.00-0.03) X10*3/uL Absolute Neuts (auto) 4.1 (2.0-8.3) x10*3/uL Absolute Nucleated RBC 0.020 H (0.0-0.012) X10*3/uL Nucleated RBC % (auto) 0.3 H (0.0-0.2) /100WBC Sodium 141 (135-145) mmol/L Potassium 4.0 (3.3-5.1) mmol/L Chloride 111 H (96-108) mmol/L Carbon Dioxide 20 L (22-29) mmol/L Anion Gap 14 (12-20) BUN 13 (9-16) mg/dL Creatinine 1.16 (0.5-1.4) mg/dL Estim Creat Clear Calc 33.7 Estimated GFR 45 Random Glucose 95 (60-115) mg/dL Calcium 8.7 (8.4-10.2) mg/dL Total Bilirubin 0.4 (0.0-1.0) mg/dL AST 34 H (5-31) U/L ALT 26 (0-31) U/L Alkaline Phosphatase 60 (39-117) U/L Troponin I High Sens < 2.7 (<3.5-17.0) ng/L Total Protein 7.0 (6.5-8.0) g/dL Albumin 3.8 (3.5-5.0) g/dL Influenza Type A (PCR) NEGATIVE (Negative) Influenza Type B (PCR) NEGATIVE (Negative) RSV RNA Qual (PCR) NEGATIVE (Negative) SARS-CoV-2 RNA (RT-PCR) NEGATIVE (Negative) Independent Interpretation I performed an independent interpretation of an: EKG (73 beats per minute otherwise normal ECG without dysrhythmia, AV alisia blocks or ST-T changes to suspect underlying ACS, my independent interpretation) and Plain X-Ray (My independent chest xray interpretation: Lungs: Lungs are clear bilaterally without evidence of focal consolidation, pleural effusion, or pneumothorax. Cardiac silhouette is unremarkable, no obvious mediastinal widening, no obvious bony abnormalities such as fractures. Impression: Normal chest X-r) Radiology Impression Discussion of test interpretation with radiology: I have reviewed the radiologist's reading. ([address] [id number] XRay Report Signed Patient: Joan Armendariz MR#: [id number] : 1945 Acct:[id number] Age/Sex: 80 / F ADM Date: 06/05/25 Loc: .ED Attending Dr: Ordering Physician: Don Garcia DO Date of Service: 06/05/25 Procedure(s): XR ) Discharge Plan Discharge Clinical Impression: Chest pain, precordial Patient Disposition: Home, Self-Care Instructions: Chest Pain (ED) Additional Instructions: Diagnosis and Initial Evaluation: You have been evaluated in the Emergency Department (ED) for chest pain. Based on your clinical assessment, electrocardiogram (ECG), and high-sensitivity cardiac troponin (hs-cTn) levels, you have been classified as low-risk for acute coronary syndrome (ACS) and myocardial infarction (AK). This means that your likelihood of having a heart attack or other serious heart condition in the next 30 days is very low. Follow-Up Care: ? Primary Care Provider (PCP) or Homicide Squad Captain: It is important to follow up with your primary care provider or a&p mechanic within the next 14 to 30 days. This follow-up is crucial to ensure that any underlying conditions are managed appropriately and to discuss any further testing that may be needed. ? Notification: If you have an established PCP or a&p mechanic, they have been notified of your ED visit to facilitate continuity of care. Self-Care and Monitoring: ? Medications: Continue taking any prescribed medications as directed. If you have been given new medications, ensure you understand how and when to take them. ? Activity: Resume normal activities as tolerated. Avoid strenuous activities until you have discussed them with your healthcare provider. ? Diet: Maintain a heart-healthy diet, low in saturated fats, cholesterol, and sodium. Red Flags: Seek immediate medical attention if you experience any of the following: ? New or worsening chest pain ? Shortness of breath ? Dizziness or fainting ? Pain radiating to your arm, neck, or jaw ? Sweating, nausea, or vomiting Additional Testing: In some cases, outpatient testing such as a stress test or imaging may be recommended to further evaluate your heart health. Your follow-up provider will discuss this with you if necessary. Mental Health: Anxiety and stress can contribute to chest pain. Consider discussing any concerns with your healthcare provider, who may recommend screening for anxiety or depression and appropriate management strategies. Contact Information: If you have any questions or concerns before your follow-up appointment, please contact your healthcare provider or the ED where you were evaluated. Summary: You have been discharged from the ED with a low risk of serious heart conditions. Follow the instructions above, attend your follow-up appointments, and seek immediate care if you experience any red flags. Prescriptions: No Action carvedilol 6.25 mg tablet 6.25 mg PO BID levothyroxine 50 mcg tablet 50 mcg PO DAILY@0600 fluticasone propionate 50 mcg/actuation spray,suspension 2 spray intranasal DAILY PRN (Reason: Allergy Symptoms) cholecalciferol (vitamin D3) 125 mcg (5,000 unit) capsule 125 mcg PO MOTH lactulose 10 gram/15 mL solution 15 ml PO DAILY PRN (Reason: constipation) methotrexate sodium 2.5 mg tablet 20 mg PO MO Rx Instructions: TAKE 8 TABLETS ONCE WEEKLY (DME) inhalational spacing device Spacer See Rx Instructions .ROUTE DIRECTED Qty: 1 Rx Instructions: As directed (DME) nebulizers Misc See Rx Instructions .Route Rx Instructions: As directed nitroglycerin 0.4 mg tablet, sublingual 0.4 mg sublingual NEEDED PRN (Reason: Chest Pain) famotidine 20 mg tablet 20 mg PO DAILY aspirin 81 mg tablet,delayed release (DR/EC) 81 mg PO DAILY clopidogrel 75 mg tablet 75 mg PO DAILY atorvastatin 80 mg tablet 80 mg PO BEDTIME (DME) back brace Misc See Rx Instructions .Route Qty: 1 0RF Rx Instructions: As directed Referrals: Jeni Garcia MD [Primary Care Provider, Internal Medicine] - 10 days Clinical Impression: Chest pain, precordial Print Language: Ivorian
[2025-06-05 15:31] LABS: Troponin-I High Sensitivity < 2.7 ng/L (<3.5-17.0)
[2025-06-05 15:36] LABS: Alanine Aminotransferase 26 U/L (0-31); Albumin Level 3.8 g/dL (3.5-5.0); Alkaline Phosphatase 60 U/L (39-117); Anion Gap 14 (12-20); Aspartate Amino Transferase 34 U/L (5-31); Blood Urea Nitrogen 13 mg/dL (9-16); Calcium 8.7 mg/dL (8.4-10.2); Carbon Dioxide 20 mmol/L (22-29); Chloride 111 mmol/L (96-108); Creatinine Clr Calc Pharmacy 33.7; Estimated Glomerular Filt Rate 45; Potassium 4.0 mmol/L (3.3-5.1); Sodium 141 mmol/L (135-145); Total Protein 7.0 g/dL (6.5-8.0)
[2025-06-05 15:38] LABS: Resp Syncy Virus RNA Qual PCR NEGATIVE (Negative); SARS COV2 PCR INHOUSE NEGATIVE (Negative)
[2025-06-05] MEDS: Magnesium Hydrox/Alum Hydrox 30 ML ORAL.SUSP PO (15:49)
--- OUTSIDE RECORDS SUMMARY | 2025-06-05 16:19 | XMS_ITS ---
Author Name Catracho Love NP Address [address] [place] [address] Phone [phone] [facility] Care Team Providers Care Customer Training Specialist Name Role Phone Love, Catracho Unavailable [phone] [facility] Unavailable [phone] JoseJeni chou Unavailable Unavailable Unavailable [phone] Unavailable Unavailable [phone] Unavailable Unavailable [phone] Reason for Referral Not Available Allergies, adverse [...] mg Cap TAKE 1 CAPSULE BY MOUTH at bedtime 2022-03-17 No Data Available amLODIPine Besylate 10 [...] MCG) BY MOUTH IN THE MORNING 2021-09-28 2025-06-01 Levothyroxine Sodium 50 MCG Tab TAKE 1 [...] EVERY 12 HOURS FOR 30 DAYS 2022-10-28 2025-06-01 Tylenol Extra Strength 500 m g Tab [...] PLEASE SEE ATTACHED FOR DETAILED DIRECTIONS 2023-08-19 2025-06-01 Loratadine 10 mg Tab TAKE 1 TABLET BY MO UT EVERY DAY IN THE MORNING 2023-08-19 2025-06-01 COMPACT SPACE CHAMBER USE WITH INHALER A [...] CAPSULE BY MOUTH TWICE A DAY 2023-09-23 2025-06-01 Nitroglycerin 0.[address] 1 TAB UNDER TONGUE EVERY 5 MINS DIRECTED FOR OF CHEST PAIN (MAX 3 TAB/15 MIN THEN CALL 911) 2023-09-23 No Data Available Aspirin 81 mg Tab delayed rel take 1 tab let orally once daily 2023-09-26 2025-01-17 Mupirocin Calcium 2 % Crm APPLY TO AFFEC KRISSY AREA TWICE A DAY 2023-11-25 2025-06-01 Triamcinolone Acetonide 0.5 % Crm 1 application topically to affected area 2 times per day as needed 2023-11-25 2025-06-01 Doxycycline Monohydrate 100 mg Tab TAKE 1 [...] Available Atorvastatin Calcium 80 mg Tab TAKE 40 mg orally daily 2024-10-31 No Data Available Pantoprazole Sodium 40 mg Ta b delayed rel TAKE 1 TABLET BY MOUTH TWICE A DAY DO NOT CRUSH, CHEW, OR SPLIT 2024-11-14 2025-06-01 Methocarbamol 750 mg Tab TAKE 1 TABLET [...] b PO q12h x 10 days 2025-01-17 2025-06-01 Omeprazole 20 mg Cap delayed rel No Data Available 02-15-16 2025-01-30 Ondansetron 4 mg Tab Disintegrating 1 tablet orally every 8 hours prn 2025-04-02 2025-06-01 Lactulose 10 GM/15ML Solution 15 ml ONCE DAILY NEEDED FOR CONSTIPATION 2025-04-14 No Data Available Aspirin EC 81 mg Tab delayed rel take 1 tablet by mouth daily 2025-06-01 No Data Available Famotidine 20 mg Tab TAKE 1 TABLET BY MO UTH EVERY DAY 2025-04-18 No Data Available Olmesartan Medoxomil-HCTZ 40/12.5 mg Tab TAKE 1 TABLET BY MOUTH ONCE PER DAY. SP CAD/DC LOSARTAN 2025-02-15 2025-06-01 Amoxicillin 500 mg Tab No Data Available 2025-05-30 No Data Available Problem List Problem Status Onset Date Resolved Date Synopsis Glaucoma Active 2022-11-05 N/A Adhere to Medi cations. You may need to take a variety of eyedrops throughout the day to manage your glaucoma. Maintain a schedule to take the proper dosage on time.01/17/2025 sees lens inserter yearly Cataracts, bilateral Active 2022-11-05 N/A 2024 [...] techniques, and weight loss. 01/17/2025 patient sees remediation project engineer every 3-6 months Rheumatoid polyneuropathy wi th [...] effect. 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 01/19-01/20/25. Acute abdominal pain, gastritis. D/C home . No changes to medication; Patient feels well Other problems related to medical facilities and other health care Active 2025-01-17 N/A WOUND CONTING ENCY PLANLast updated: 01/17/2025[facility] to call for the following symptoms: Fever/ HR >100 / Increased wound size / Wound bleeding/ Wound drainagePlanned intervention: Ensure appropriate offloading of wound/ Encourage increased fluid intake/ MRSA Suspected - Bactrim DS BID x7d/ Take Tylenol for pain or feverABDOMINAL PAIN CONTINGENCY PLANLast updated: 01/30/2025[facility] to call for the following [...] MiraLAX, Senna-S or Dulcolax, Dulcolax suppository. Contact [facility] 09/05 for any new, worsening or continued symptoms of increased abdominal pain. Encounters Encounters Type Facility Date of Service Diagnosis/Co mplaint New patient,40-59min; chronic exacerbation, 2 stable chronic or 1 acute illness add add modifier 95 for video (do not use for phone, instead use 56202-85) [facility] ([place] Rheumatoid polyneurop w rheu matoid arthritis of unsp siteAtherosclerosis of renal arteryAthscl absentee-shawnee arteries of extrm w intrmt nilesh, bi legsPersonal history of urinary calculi New patient,40-59min; chronic exacerbation, 2 stable chronic or 1 acute illness add add modifier 95 for video (do not use for phone, instead use 34396-18) [facility] New patient,40-59min; chronic exacerbation, 2 stable chronic or 1 acute illness add add modifier 95 for video (do not use for phone, instead use 06938-24) [facility] New patient,40-59min; chronic exacerbation, 2 stable chronic or 1 acute illness add add modifier 95 for video (do not use for phone, instead use 82805-61) [facility] New patient,40-59min; chronic exacerbation, 2 stable chronic or 1 acute illness add add modifier 95 for video (do not use for phone, instead use 36403-30) [facility] New patient,40-59min; chronic exacerbation, 2 stable chronic or 1 acute illness add add modifier 95 for video (do not use for phone, instead use 56797-22) [facility]20[place] No Data Available [facility]2022 Primary osteoarthritis, left elbowPersonal history of urinary calculi No Data Available [facility]2022 No Data Available [facility]20[place] No Data Available [facility]2023 Shortness of breathCough, unspecified Estab. patient 20-29min; 1 stable chronic or 2 minor; add add modifier 95 for video, modifier 93 for phone [facility]2023 Rheumatoid polyneurop w rheu matoid arthritis of unsp siteAtherosclerosis of renal arteryAthscl absentee-shawnee arteries of extrm w intrmt nilesh, bi legsPersonal history of urinary calculiAcquired absence of other specified parts of digestive tractUnspecified asthma, uncomplicatedUnspecified glaucomaUnspecified cataractImmunodeficiency due to drugsOther longterm (current) drug therapyChronic obstructive pulmonary disease, unspecifiedObesity, unspecifiedBody mass index (BMI) 35.0-35.9, adultPrimary osteoarthritis, left elbowShortness of breathCough, unspecified Estab. patient 20-29min; 1 stable chronic or 2 minor; add add modifier 95 for video, modifier 93 for phone [facility] Estab. patient 20-29min; 1 stable chronic or 2 minor; add add modifier 95 for video, modifier 93 for phone [facility]2023 Estab. patient 20-29min; 1 stable chronic or 2 minor; add add modifier 95 for video, modifier 93 for phone [facility] 07[place]2023 Estab. patient 20-29min; 1 stable chronic or 2 minor; add add modifier 95 for video, modifier 93 for phone [facility] 07/25/2023 Estab. patient 20-29min; 1 stable chronic or 2 minor; add add modifier 95 for video, modifier 93 for phone [facility] 07/[place]/2023 No Data Available [facility]/2023 Chronic obstructive pulmonar y disease, unspecifiedRheumatoid polyneurop w rheumatoid arthritis of unsp siteAtherosclerosis of renal arteryAthscl absentee-shawnee arteries of extrm w intrmt nilesh, bi legsImmunodeficiency due to drugsPersonal history of urinary calculiAcquired absence of other specified parts of digestive tractUnspecified asthma, uncomplicatedUnspecified glaucomaUnspecified cataractOther terminal make up operator (current) drug therapyObesity, unspecifiedBody mass index (bmi) 34.0-34.9, adultPrimary osteoarthritis, left elbowShortness of breathCough, unspecifiedCellulitis, unspecified No Data Available [facility]2023 No Data Available [facility]2023 No Data Available [facility] 09[place]/20[place] RN, CN or CP time with patient by phone; use with 1111F, BP, A1c or other CPTII codes [facility], ([place]) 09/26/2023 Encounter for other specifie d aftercare RN, CN or CP time with patient by phone; use with 1111F, BP, A1c or other CPTII codes [facility], ([place]) 09/26/2023 Estab. patient 30-39min; chronic exacerbation, 2 stable chronic or 1 acute illness add add modifier 95 for video, (do not use for phone, instead use 22070-98) [facility]2023 Rheumatoid polyneurop w rheu matoid arthritis of unsp siteAtherosclerosis of renal arteryAthscl absentee-shawnee arteries of extrm w intrmt nilesh, bi legsUnspecified glaucomaUnspecified cataractImmunodeficiency due to drugsOther terminal make up operator (current) drug therapyChronic obstructive pulmonary disease, unspecifiedObesity, unspecifiedPrimary osteoarthritis, left elbowOther problems related to medical facilities and other health careAthscl heart disease of absentee-shawnee cor art w unstable ang pctrsPeripheral vascular disease, unspecifiedDermatitis, unspecifiedType 2 diabetes mellitus with other specified complicationMixed hyperlipidemia Estab. patient 30-39min; chronic exacerbation, 2 stable chronic or 1 acute illness add add modifier 95 for video, (do not use for phone, instead use 58601-91) [facility] Estab. patient 30-39min; chronic exacerbation, 2 stable chronic or 1 acute illness add add modifier 95 for video, (do not use for phone, instead use 16370-46) [facility] [place]20[place] Estab. patient 30-39min; chronic exacerbation, 2 stable chronic or 1 acute illness add add modifier 95 for video, (do not use for phone, instead use 00224-40) [facility] [place]/2023 Estab. patient 30-39min; chronic exacerbation, 2 stable chronic or 1 acute illness add add modifier 95 for video, (do not use for phone, instead use 43034-74) [facility]2023 Estab. patient 30-39min; chronic exacerbation, 2 stable chronic or 1 acute illness add add modifier 95 for video, (do not use for phone, instead use 19109-66) [facility]20[place] Estab. patient 30-39min; chronic exacerbation, 2 stable chronic or 1 acute illness add add modifier 95 for video, (do not use for phone, instead use 49027-49) [facility]2023 Estab. patient 30-39min; chronic exacerbation, 2 stable chronic or 1 acute illness add add modifier 95 for video, (do not use for phone, instead use 23117-82) [facility]2023 Estab. patient 30-39min; chronic exacerbation, 2 stable chronic or 1 acute illness add add modifier 95 for video, (do not use for phone, instead use 42899-85) [facility]2023 Estab. patient 30-39min; chronic exacerbation, 2 stable chronic or 1 acute illness add add modifier 95 for video, (do not use for phone, instead use 48287-92) [facility]20[place] Estab. patient 30-39min; chronic exacerbation, 2 stable chronic or 1 acute illness add add modifier 95 for video, (do not use for phone, instead use 23784-44) [facility]20[place] Estab. patient 10-29min; 1 minor problem; add add modifier 95 for video, modifier 93 for phone [facility] 01/17/2025 Type 2 diabetes mellitus wit h diabetic chronic kidney diseaseChronic kidney disease, stage 3 unspecifiedType 2 diabetes w diabetic peripheral angiopath w/o gangreneAthscl absentee-shawnee arteries of extrm w intrmt nilesh, bi legsType 2 diabetes mellitus with other specified complicationMixed hyperlipidemiaRheumatoid polyneurop w rheumatoid arthritis of unsp siteAthscl heart disease of absentee-shawnee cor art w unstable ang pctrsUnspecified atrial [...] modifier 93 for phone [facility]/17[place]20[place] Estab. patient 10-29min; 1 minor problem; add add modifier 95 for video, modifier 93 for phone [facility] 01/17/2025 Estab. patient 10-29min; 1 minor problem; add add modifier 95 for video, modifier 93 for phone [facility] 01/17/2025 Estab. patient 10-29min; 1 minor problem; add add modifier 95 for video, modifier 93 for phone [facility] 01/17/2025 Estab. patient 10-29min; 1 minor problem; add add modifier 95 for video, modifier 93 for phone [facility] 01/17/2025 Estab. patient 10-29min; 1 minor problem; add add modifier 95 for video, modifier 93 for phone [facility] 01/17/2025 Estab. patient 10-29min; 1 minor problem; add add modifier 95 for video, modifier 93 for phone [facility] 01/17/2025 Estab. patient 10-29min; 1 minor problem; add add modifier 95 for video, modifier 93 for phone [facility] 01/17/2025 Estab. patient 10-29min; 1 minor problem; add add modifier 95 for video, modifier 93 for phone [facility] 01/17/2025 Estab. patient 10-29min; 1 minor problem; add add modifier 95 for video, modifier 93 for phone [facility] 01/17/2025 Estab. patient 10-29min; 1 minor problem; add add modifier 95 for video, modifier 93 for phone [facility] 01/30/2025 Personal history of other me dical treatmentOther problems related to medical facilities and other health care Estab. patient 10-29min; 1 minor problem; add add modifier 95 for video, modifier 93 for phone [facility]20[place] Estab. patient 10-29min; 1 minor problem; add add modifier 95 for video, modifier 93 for phone [facility] 03/[place]/2025 Rheumatoid polyneurop w rheu matoid arthritis of [facility] siteImmunodeficiency, unspecifiedOther specified counseling Estab. patient 10-29min; 1 minor problem; add add modifier 95 for video, modifier 93 for phone [facility] 04/14/2025 Constipation, unspecified RN, CN or CP time with patient by phone; use with 1111F, BP, A1c or other CPTII codes [facility] 06/01/2025 Encounter for other specifie d aftercare RN, CN or CP time with patient by phone; use with 1111F, BP, A1c or other CPTII codes [facility] 06/01/2025 RN, CN or CP time with patient by phone; use with 1111F, BP, A1c or other CPTII codes [facility] 06/01/20[place] RN, CN or CP time with patient by phone; use with 1111F, BP, A1c or other CPTII codes [facility] 06/01/20[place] RN, CN or CP time with patient by phone; use with 1111F, BP, A1c or other CPTII codes [facility] 06/01/2025 Vital Signs Date of Collection Vitals 2022-11-05 [...] tive Time Current Smoking Status Former smoker 2025-05-18 0 Sex Female Gender identity Woman History of Procedures Procedures Service Procedure code Service date Servicing provider Phone# New patient,40-59min; chronic exacerbation, 2 stable chronic or 1 acute illness add add modifier 95 for video (do not use for phone, instead use 59979-34) [id number] 2022-11-05 No Data Available No Data Availa [...] le No Data Available No Data Available [id number] 2022-12-02 No Data Available No Data Available Medication List Documented (1159F) 1159F 2022-12-02 No Data Available No Data Lucretia ilable Pain Assessment - Pain Documented on a Pain Scale (1125F) 1125F 2022-12-02 No Data Available No Data Lucretia ilable No Data Available [id number] 2023-01-25 No Data Available No Data Available Estab. patient 20-29min; 1 stable chronic or 2 minor; add add modifier 95 for video, modifier 93 for phone [id number] 2023-07-25 No Data Available No Data Availa [...] le No Data Available No Data Available [id number] 2023-09-30 No Data Available No Data Available [...] 1111F, BP, A1c or other CPTII codes 94601 2023-09-26 No Data Available No Data Avai lable Medications prescribed in hospital were reviewed and reconciled against what they were taking prior to admission during today's visit. (1111F) 1111F 2023-09-26 No Data Available No Data Availa ble Estab. patient 30-39min; chronic exacerbation, 2 stable chronic or 1 acute illness add add modifier 95 for video, (do not use for phone, instead use 68368-16) 16690 2023-11-25 No Data Available No Data Availa [...] 95 for video, modifier 93 for phone [id number] 2025-01-17 No Data Available No Data Availa [...] 95 for video, modifier 93 for phone [id number] 2025-01-30 No Data Available No Data Availa ble Medications prescribed in hospital were reviewed and reconciled against what they were taking prior to admission during today's visit. (1111F) 1111F 2025-01-30 No Data Available No Data Availa ble Estab. patient 10-29min; 1 minor problem; add add modifier 95 for video, modifier 93 for phone [id number] 2025-03-22 No Data Available No Data Availa ble Estab. patient 10-29min; 1 minor problem; add add modifier 95 for video, modifier 93 for phone [id number] 2025-04-14 No Data Available No Data Availa ble RN, CN or CP time with patient by phone; use with 1111F, BP, A1c or other CPTII codes 02361 2025-06-01 No Data Available No Data Avai lable Medications prescribed in hospital were reviewed and reconciled against what they were taking prior to admission during today's visit. (1111F) 1111F 2025-06-01 No Data Available No Data Availa ble Pain Assessment - Pain Documented on a Pain Scale (1125F) 1125F 2025-06-01 No Data Available No Data Lucretia ilable SBP 130-139 (3075F) 3075F 2025-06-01 No Data Availabl e No Data Available DBP <80 (3078F) 3078F 2025-06-01 No Data Available No Data Available Functional Status Functional Category [...] Yes Do you worry about falling? Yes 2025-04- 03 DME used with ambulation: [facility] 02-17-03 Social Supports - # of Inter actions with Friends/Family in a typical week: daughter 2025-01-17 Mental Status No Information Assessments Date of Service Assessments 2022-11-05 10:33:01 Rheumatoid polyneuro gregor with rheumatoid arthritis of unspecified siteAtherosclerosis of renal artery, Atherosclerosis of absentee-shawnee arteries of extremities with intermittent claudication, bilateral legsHx of renal calculi 2022-12-02 12:17:08 Arthritis of left up per armHx of renal calculi 2023-01-25 09:24:51 Follow up plan for kimberly barrow symptoms: F/U PCPShortness of breath with cough 2023-07-25 08:46:34 <Fully document all Diagnosis>Rheumatoid polyneuropathy with rheumatoid arthritis of unspecified siteAtherosclerosis of renal artery, Atherosclerosis of absentee-shawnee arteries of extremities with intermittent claudication, bilateral legsHx of renal calculiHx of cholecystectomyAsthmaGlaucomaCataracts, bilateralImmunodeficiency due to drugsChronic obstructive pulmonary disease, unspecifiedObesity (BMI 30.0-34.9)Arthritis of left upper armHx of renal calculiShortness of breath with cough 2023-09-30 07:29:04 Rheumatoid polyneuro gregor with rheumatoid arthritis of unspecified siteAtherosclerosis of renal artery, Atherosclerosis of absentee-shawnee arteries of extremities with intermittent claudication, bilateral legsHx of renal calculiHx of cholecystectomyAsthmaGlaucomaCataracts, bilateralImmunodeficiency due to drugsChronic obstructive pulmonary disease, unspecifiedObesity (BMI 30.0-34.9)Arthritis of left upper armHx of renal calculiShortness of breath with coughCellulitis 2023-11-25 11:48:09 Other problems relat ed to medical facilities and other health careRheumatoid polyneuropathy with rheumatoid arthritis of unspecified siteAtherosclerosis of renal artery, Atherosclerosis of absentee-shawnee arteries of extremities with intermittent claudication, bilateral legsGlaucomaCataracts, bilateralImmunodeficiency due to drugsChronic obstructive pulmonary disease, unspecifiedObesity (BMI 30.0-34.9)Arthritis of left upper armOther problems related to medical facilities and other health careAtherosclerosis of renal artery, Atherosclerosis of absentee-shawnee arteries of extremities with intermittent claudication, bilateral legs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PVD (peripheral vascular disease)EczemaMixed hyperlipidemia due to type 2 diabetes mellitus 2025-01-17 08:37:23 Rheumatoid polyneuro gregor with rheumatoid arthritis of unspecified siteImmunocompromisedAtherosclerosis of renal artery, Atherosclerosis of absentee-shawnee arteries of extremities with intermittent claudication, bilateral [...] 2025-04-14 15:07:06 Follow up plan for kimberly pushpa symptoms: 04/17/25 at 2:15 with APPConstipation Plan [...] foodActivity as toleratedRecently passed a kidney stone, 11/0326Lutpckmy6/tableAdvair,Albuterol PRN,Montelukast.ophtho consult coing up in Januaryophtho consult [...] foodActivity as toleratedRecently passed a kidney stone, 11/0331Pfuvjzca5/24/2022tableAdvair,Albuterol PRN,Montelukast.ophtho consult coing up in Januaryophtho consult [...] <7% (3044F)Continue to see PCP. [facility] [...] smoking.keep skin hydrated triamcinolone PRN Eosinophil count [id number] 08/19/23not on any medication Advised to eat [...] take the proper dosage on time.01/17/2025 sees lens inserter yearly01/17/2025 no need for surgery yet , monitored yearlyRx: nitro, clopidogrel Choose heart-healthy foods, Aim for a healthy weight, Be physically activity, Manage stress, Quit smoking, and Get enough good-quality sleep.01/17/2025 patient had ME while on vacation on a cruise earlier this year sees svp marketing yearlyRx: gabapentin elevate and massage legsrecommend compression [...] techniques, and weight loss. 01/17/2025 patient sees remediation project engineer every 3-6 monthsRx: carvedilolMonitor BP routinely, low [...] will see her pcpWOUND CONTINGENCY PLANLast updated: 01/17/2025[facility] to call for the following [...] or disease education needs that may arise 09/05.[facility]. 01/19-01/20/25. Acute abdominal pain, gastritis. D/C home . No changes to medication; Patient feels wellWOUND CONTINGENCY PLANLast updated: 01/17/2025[facility] to call for the following symptoms: Fever/ HR >100 / Increased wound size / Wound bleeding/ Wound drainagePlanned intervention: Ensure appropriate offloading of wound/ Encourage increased fluid intake/ MRSA Suspected - Bactrim DS BID x7d/ Take Tylenol for pain or feverABDOMINAL PAIN CONTINGENCY PLANLast updated: 01/30/2025[facility] to call for the following [...] for phoneContinue to see PCP. Follow-up with [facility] as [...] have quality of care.WOUND CONTINGENCY PLANLast updated: 01/17/2025[facility] to call for the following symptoms: Fever/ HR >100 / Increased wound size / Wound bleeding/ Wound drainagePlanned intervention: Ensure appropriate offloading of wound/ Encourage increased fluid intake/ MRSA Suspected - Bactrim DS BID x7d/ Take Tylenol for pain or feverABDOMINAL PAIN CONTINGENCY PLANLast updated: 01/30/2025[facility] to call for the following [...] for phoneContinue to see PCP. Follow-up with [facility] as needed for any acute or disease education needs that may arise 09/05.04/14/25: Rx: Lactulose 10 GM/15ML Solution-30 ml ONCE DAILY NEEDED FOR CONSTIPATION. Advised to increase fluids and fiber intake (eat prunes or prune juice daily). Take OTC MiraLAX, Senna-S or Dulcolax, Dulcolax suppository. Contact [facility] 09/05 for any new, worsening or continued symptoms of increased abdominal pain. Goals Date Goal 2025-01-17 At least 50% of time spent counseling pt, discussing diagnosis, treatment plan, compliance, and coordinating followup care. Continue taking medications as directed and keep all follow up appointments with established PCP and Specialist
[2025-06-05 17:31] VITALS: BP 124/78; PULSE 79; RESP 15; TEMP 36.6; O2SAT 98
[2025-06-05 17:35] VITALS: BP 124/78; PULSE 79; RESP 15; TEMP 36.6; O2SAT 98
== END 2025-06-05 17:35 | disposition home or self-care (01) ==
PROVIDERS: Physician Assistant Medical; Emergency Provider Emergency Medicine; PCP Internal Medicine
DX: R07.2 Precordial pain (principal); I10 Essential (primary) hypertension; D64.9 Anemia, unspecified; K21.9 Gastro-esophageal reflux disease without esophagitis; I25.2 Old myocardial infarction; Z87.891 Personal history of nicotine dependence; Z79.899 Other long term (current) drug therapy
CPT/HCPCS: 71046; 80053; 84484; 85025; 87637; 93005; 96374; 97803; 99284; 99285; J2405

== ENCOUNTER → 2025-06-05 14:40 | Outpatient (BNV) | payer OTHER, SELFPAY | PROVIDERS: Emergency Provider Emergency Medicine; PCP Internal Medicine; Visit Provider Internal Medicine Cardiovascular Disease | DX: R07.89 Other chest pain (principal) | CPT/HCPCS: 93010 ==

== ENCOUNTER → 2025-06-05 15:51 | Outpatient (BNV) | payer OTHER, SELFPAY | PROVIDERS: Emergency Provider Emergency Medicine; PCP Internal Medicine; Visit Provider Radiology Diagnostic Radiology | DX: R07.9 Chest pain, unspecified (principal) | CPT/HCPCS: 71046 ==

== ENCOUNTER 2025-06-14 13:30 | Outpatient (RCR) | payer OTHER, SELFPAY | END 2025-06-14 13:38 | disposition home or self-care (01) | LOC: HO.CR 13:30 | PROVIDERS: PCP Internal Medicine; Visit Provider Internal Medicine Cardiovascular Disease | DX: I25.10 Atherosclerotic heart disease of native coronary artery without angina pectoris (principal) | CPT/HCPCS: 93798 ==

== ENCOUNTER 2025-06-24 11:07 | Outpatient (REF) | payer OTHER, SELFPAY ==
--- NOTE | ~2025-06-24 | XR_ITS ---
EXAMINATION: XR RIBS, RIGHT CLINICAL INFORMATION: sp fall, pleuritic CP righ side COMPARISON: Correlated with chest x-ray. TECHNIQUE: Oblique views, right hemithorax. FINDINGS: Cortical irregularity at the posterior lateral aspect of the right fifth, sixth and possibly seventh ribs. No gross pneumothorax. Vascular clips right upper quadrant abdomen likely cholecystectomy. Radiopaque material likely T12 likely kyphoplasty/vertebroplasty. XR/XR ribs RT 2V IMPRESSION: Minimally displaced fractures posterior lateral aspect of the right sixth, seventh and likely seventh ribs. Electronically signed by: Jose Singh MD 06/24/2025 12:23 PM EDT
--- NOTE | ~2025-06-24 | XR_ITS ---
EXAMINATION: XR CHEST CLINICAL INFORMATION: sp fall, pleuritic CP righ side COMPARISON: June 05, 2025 TECHNIQUE: PA and lateral views FINDINGS: Pulmonary reticular pattern. Hyperinflation of lungs. Linear opacities in the left lung. No gross consolidation pleural effusion or pneumothorax. Cardiomediastinal silhouette size is normal. Multilevel spondylosis, thoracolumbar spine. S-shaped curvature of the thoracolumbar spine. Radiopaque material within T12 vertebra. Metallic prosthesis, left glenohumeral joint. Vascular clips right upper quadrant abdomen likely laparoscopic cholecystectomy.. XR/XR chest 2V IMPRESSION: Chronic interstitial lung disease. Subsegmental atelectasis versus scarring, left lung. Superimposed acute small airway inflammatory process cannot be excluded. Atherosclerosis disease. Status post kyphoplasty/vertebroplasty procedure, likely T12. Multilevel spondylosis and scoliosis.. Electronically signed by: Jose Singh MD 06/24/2025 12:21 PM EDT
--- OUTSIDE RECORDS SUMMARY | 2025-06-24 10:00 | XMS_ITS | Encounter Summary ---
Author Organization [employer] Address [address] [place] [address] 7t [place] [address] Care Team Providers Care Oracle Identity Management Consultant Name Role Phone Jeni Garcia MD Primary Care Provider + Reason for Visit * Reason Comments Hospital Follow-up Encounter Details Date Type Department Care Team ([facility] st Contact Info) Description 06/24/2025 10:00 AM EDT Office Visit [facility] [address] [place], [place] [phone] Jeni Garcia MD [address] [place] [address] Chest wall contusion, right, subsequent encounter (Primary Dx); Gastroesophageal reflux disease, unspecified whether esophagitis present; Meningioma (CMS/HCC); Prediabetes; 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); Chronic obstructive pulmonary disease, unspecified COPD type (CMS/HCC); Superior mesenteric artery stenosis (CMS/HCC) Social History Tobacco Use Types Packs/Day Years Used Date Smoking Tobacco: Never Passive Smoke Exposure: Never Smokeless Tobacco: Never Alcohol Use Standard Drinks/Week Comments Never 0 (1 standard drink = 0.6 oz pur e alcohol) Depression Answer Date Recorded Patient Health Questionnaire-9 Score 9 04/18/2025 Patient Health Questionnaire-9 Score 9 04/18/2025 Last PHQ-9: Questionnaire Data Not on file 0 04/18/2025 Housing Stability Answer Date Recorded What is [...] Answer Date Recorded Patient Health Questionnaire-2 Score 3 04/18/2025 Internet Access Answer Date Recorded Internet Access [...] Sign Reading Time Taken Comments Blood Pressure 128/60 06/24/2025 10:08 AM EDT Pulse 80 06/24/2025 10:08 AM EDT Temperature 36.6 C (97.8 F) 06/24/2025 10:08 AM EDT Respiratory Rate 18 06/24/2025 10:08 AM EDT Oxygen Saturation - - Inhaled Oxygen Concentration - - Weight 70 kg (154 lb 6.4 oz) 06/24/2025 10:08 AM EDT Height 147.3 cm (4' 10 ) 06/24/2025 10:08 AM EDT Body Mass Index 32.27 06/24/2025 10:08 AM EDT documented in this encounter Miscellaneous Notes * Assessment & Plan Note - Jeni Garcia MD - 06/24/2025 11:02 AM EDT Associated Problem(s): Coronary artery disease involving umkumiut coronary artery of umkumiut heart She's back on plavix + ASA * Assessment & Plan Note - Jeni Garcia MD - 06/24/2025 10:59 AM EDT Associated Problem(s): Chronic obstructive pulmonary disease (CMS/HCC) Restart Advair bid Use documented in this encounter Plan of Treatment Upcoming Encounters Date Type Department Care Team (Late st Contact Info) Description 07/05/2025 11:45 AM EDT Office Visit [facility] [address] [place] [phone] Jeni Garcia MD [address] [place] [address] 09/03/2025 11:45 AM EST Office Visit [address] [address] Jeni Garcia MD [address] [place] [address] Scheduled Orders Name Type Priority Associated Diagnoses Orde r Schedule CBC auto differential Lab Routine Superior mesenteric artery stenosis (CMS/HCC) Gastroesophageal reflux disease, unspecified whether esophagitis present Expected: 06/24/2025 (Approximate), Expires: 06/24/2026 Fecal Globin By Immunochemistry Lab Routine Superior mesenteric artery stenosis (CMS/HCC) Gastroesophageal reflux disease, unspecified whether esophagitis present Expected: 06/24/2025 (Approximate), Expires: 06/24/2026 documented as of this encounter Procedures Procedure Name Priority Date/Time Associated Diagnosis Comments XR RIBS 2 VIEWS RIGHT Routine 06/24/2025 12:06 PM EDT Chest wall contusion, right, subsequent encounter XR CHEST 2 VIEWS Routine 06/24/2025 12:0 6 PM EDT Chest wall contusion, right, subsequent encounter POCT GLUCOSE Routine 06/24/2025 10:21 AM EDT 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) POCT GLYCATED HEMOGLOBIN, TOTAL Routine 06/24/2025 10:20 AM EDT 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) documented in this encounter Results * XR Ribs 2 Views Right (06/24/2025 12:06 PM EDT) Anatomical Region Laterality Modality Rib, Abdomen Right Radiographic Tamiko ging 06/24/2025 12:0 6 PM EDT Narrative 06/24/2025 12:26 PM EDT [address] [address] XRay Report Signed Patient: Joan Armendariz MR#: [id number] : 1945 Acct:[id number] Age/Sex: 80 / F ADM Date: 06/24/25 Loc: [facility] Attending Dr: Jeni Garcia MD Ordering Physician: Jeni Garcia MD Date of Service: 06/24/25 Procedure(s): XR ribs RT 2V Accession Number(s): [id number] cc: Jeni Garcia MD Reason for Exam: sp fall, pleuritic CP righ side EXAMINATION: XR RIBS, RIGHT CLINICAL INFORMATION: sp fall, pleuritic CP righ side COMPARISON: Correlated with chest x-ray. TECHNIQUE: Oblique views, right hemithorax. FINDINGS: Cortical irregularity at the posterior lateral aspect of the right fifth, sixth and possibly seventh ribs. No gross pneumothorax. Vascular clips right upper quadrant abdomen likely cholecystectomy. Radiopaque material likely T12 likely kyphoplasty/vertebroplasty. XR/XR ribs RT 2V IMPRESSION: Minimally displaced fractures posterior lateral aspect of the right sixth, seventh and likely seventh ribs. Electronically signed by: Jose Singh MD 06/24/2025 12:23 PM EDT Dictated By: Jose Juarez MD Signed By: <Electronically signed by Jose Mosquera MD in OV> 06/24/25 1223 DD/ 1206 TD/TT: 06/24/251205 Supervisor Maintenance And Custodians: Procedure Note Donotuseinterpreter, Image - 06/24/[address] [address] XRay Report Signed Patient: Joan Armendariz RMR#: [id number] : 1945cct:[id number] Age/Sex: 80 / FADM Date: 06/24/25 Loc: [facility] Attending Dr: Jeni Garcia MD Ordering Physician: Jeni Garcia MD Date of Service: 06/24/25 Procedure(s): XR ribs RT 2V Accession Number(s): [id number] cc: Jeni Garcia MD Reason for Exam: sp fall, pleuritic CP righ side EXAMINATION: XR RIBS, RIGHT CLINICAL INFORMATION: sp fall, pleuritic CP righ side COMPARISON: Correlated with chest x-ray. TECHNIQUE: Oblique views, right hemithorax. FINDINGS: Cortical irregularity at the posterior lateral aspect of the right fifth, sixth and possibly seventh ribs. No gross pneumothorax. Vascular clips right upper quadrant abdomen likely cholecystectomy. Radiopaque material likely T12 likely kyphoplasty/vertebroplasty. XR/XR ribs RT 2V IMPRESSION: Minimally displaced fractures posterior lateral aspect of the right sixth, seventh and likely seventh ribs. Electronically signed by: Jose Singh MD 06/24/2025 12:23 PM EDT Dictated By: Jose Juarez MD Signed By: <Electronically signed by Jose Mosquera MDin OV> 06/24/25 1223 DD/ TD/TT: 06/24/251205 Supervisor Maintenance And Custodians: Jeni Garcia MD IMG XR PROCEDURES Edited Result - Final * XR Chest 2 Views (06/24/2025 12:06 PM EDT) Anatomical Region Laterality Modality Chest Radiographic Tamiko ging 06/24/2025 12:0 6 PM EDT Narrative 06/24/2025 12:24 PM EDT [address] [address] XRay Report Signed Patient: Joan Armendariz MR#: [id number] : 1945 Acct:[id number] Age/Sex: 80 / F ADM Date: 06/24/25 Loc: HO.[facility] Attending Dr: Jeni Garcia MD Ordering Physician: Jeni Garcia MD Date of Service: 06/24/25 Procedure(s): XR chest 2V Accession Number(s): [id number] cc: Jeni Garcia MD Reason for Exam: sp fall, pleuritic CP righ side EXAMINATION: XR CHEST CLINICAL INFORMATION: sp fall, pleuritic CP righ side COMPARISON: June 05, 2025 TECHNIQUE: PA and lateral views FINDINGS: Pulmonary reticular pattern. Hyperinflation of lungs. Linear opacities in the left lung. No gross consolidation pleural effusion or pneumothorax. Cardiomediastinal silhouette size is normal. Multilevel spondylosis, thoracolumbar spine. S-shaped curvature of the thoracolumbar spine. Radiopaque material within T12 vertebra. Metallic prosthesis, left glenohumeral joint. Vascular clips right upper quadrant abdomen likely laparoscopic cholecystectomy.. XR/XR chest 2V IMPRESSION: Chronic interstitial lung disease. Subsegmental atelectasis versus scarring, left lung. Superimposed acute small airway inflammatory process cannot be excluded. Atherosclerosis disease. Status post kyphoplasty/vertebroplasty procedure, likely T12. Multilevel spondylosis and scoliosis.. Electronically signed by: Jose Singh MD 06/24/2025 12:21 PM EDT Dictated By: Jose Juarez MD Signed By: <Electronically signed by Jose Mosquera MD in OV> 06/24/25 1221 DD/ 1206 TD/TT: 06/24/25 1206 Supervisor Maintenance And Custodians: Procedure Note Donotuseinterpreter, Image - 06/24/[address] [address] XRay Report Signed Patient: Joan Armendariz RMR#: [id number] : 1945cct:[id number] Age/Sex: 80 / FADM Date: 06/24/25 Loc: .[facility] Attending Dr: Jeni Garcia MD Ordering Physician: Jeni Garcia MD Date of Service: 06/24/25 Procedure(s): XR chest 2V Accession Number(s): [id number] cc: Jeni Garcia MD Reason for Exam: sp fall, pleuritic CP righ side EXAMINATION: XR CHEST CLINICAL INFORMATION: sp fall, pleuritic CP righ side COMPARISON: June 05, 2025 TECHNIQUE: PA and lateral views FINDINGS: Pulmonary reticular pattern. Hyperinflation of lungs. Linear opacities in the left lung. No gross consolidation pleural effusion or pneumothorax. Cardiomediastinal silhouette size is normal. Multilevel spondylosis, thoracolumbar spine. S-shaped curvature of the thoracolumbar spine. Radiopaque material within T12 vertebra. Metallic prosthesis, left glenohumeral joint. Vascular clips right upper quadrant abdomen likely laparoscopic cholecystectomy.. XR/XR chest 2V IMPRESSION: Chronic interstitial lung disease. Subsegmental atelectasis versus scarring, left lung. Superimposed acute small airway inflammatory process cannot be excluded. Atherosclerosis disease. Status post kyphoplasty/vertebroplasty procedure, likely T12. Multilevel spondylosis and scoliosis.. Electronically signed by: Jose Singh MD 06/24/2025 12:21 PM EDT Dictated By: Jose Juarez MD Signed By: <Electronically signed by Jose Mosquera MDin OV> 06/24/25 1221 DD/ 1206 TD/TT: 06/24/25 1206 Supervisor Maintenance And Custodians: us Jeni Garcia MD IMG XR PROCEDURES Edited Result - Final * POCT Glucose (06/24/2025 10:21 AM EDT) Glucose Blood, POC 123 60 - 200 mg/dL QC Media Lot # [id number] Lot# Expiration Date 72 Blood Capillary blood specimen / Unknown 06/24/2025 10:21 AM EDT Jeni Garcia MD POINT OF CARE TEST ENTER /EDIT ORDERABLES Final Result * POCT Hgb A1c (06/24/2025 10:20 AM EDT) Hemoglobin A1C 5.4 4.0 - 5.7 % QC Media Lot # [id number] Lot# Expiration Date 42 Blood 06/24/2025 10:2 0 AM EDT Jeni Garcia MD POINT OF CARE TEST ENTER /EDIT ORDERABLES Final Result documented in this encounter Visit Diagnoses Diagnosis Chest wall contusion, right, subsequent encounter- Primary Gastroesophageal reflux disease, unspecified whether esophagitis present Meningioma (CMS/HCC) Benign neoplasm of cerebral meninges Prediabetes Other abnormal glucose 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
--- OUTSIDE RECORDS SUMMARY | 2025-06-24 13:38 | XMS_ITS | Encounter Summary ---
Author Organization [employer] Address [address] [place] [address] 7t [place] [address] Care Team Providers Care Division Controller Name Role Phone Jeni Garcia MD Primary Care Provider + Reason for Referral * Consultation (Urgent) - Closed Specialty Diagnoses / Procedures Referred By Contac t Referred To Contact Vascular Surgery Diagnoses Renal artery stenosis (CMS/HCC) Superior mesenteric artery stenosis (CMS/HCC) Celiac artery stenosis (CMS/HCC) Jeni Garcia MD [address] [place] [address] Phone: tel: fax: [facility] [address] [facility] [address] [place] [address] Phone: tel: fax: Referral ID Status Reason Start Date Expiration Date V isits Requested Visits Authorized [id number] Closed Specialty Services Required 06/13/2024 06/13/2025 1 1 Encounter Details Date Type Department Care Team (Late st Contact Info) Description 06/13/2024 Orders Only [facility] [address] [place] [address] Jeni Garcia MD [address] [place] [address] Renal artery stenosis (CMS/HCC); Superior [...] Upcoming Encounters Date Type Department Care Team ([facility] st Contact Info) Description 07/05/2025 11:45 AM EDT Office Visit [facility] [address] [place] [phone] Jeni Garcia MD [address] [place], [place] [phone] 09/03/2025 11:45 AM EST Office Visit [facility] [address] [place], [place] [phone] Jeni Garcia MD [address] [place], [place] [phone] Scheduled Referrals Name Type Priority Associated Diagnoses [...] PM EDT Narrative 06/28/2024 4:28 PM EDT [address] [address] XRay Report Signed Patient: Joan Armendariz MR#: [id number] : 1945 Acct:[id number] Age/Sex: 79 / F ADM Date: 06/28/24 Loc: HO.ED Attending Dr: Ordering Physician: Geovanna Austin Date of Service: 06/28/24 Procedure(s): XR lumbar spine 2-3V Accession Number(s): [id number] cc: Jeni Garcia MD; Geovanna Austin EXAMINATION: [...] 06/28/24 1625 DD/ 1600 TD/TT: 06/28/24 1615 Certified Solid Waste Facility Operator: Procedure Note Donotuseinterpreter, Image - 06/28/2024 [place] [address] XRay Report Signed Patient: Joan Armendariz RMR#: [id number] : 1945cct:[id number] Age/Sex: 79 / FADM Date: 06/28/24 Loc: HO.ED Attending Dr: Ordering Physician: Geovanna Austin Date of Service: 06/28/24 Procedure(s): XR lumbar spine 2-3V Accession Number(s): [id number] cc: Jeni Garcia MD; Geovanna Austin EXAMINATION: [...] 06/28/24 1625 DD/ 1600 TD/TT: 06/28/24 1615 Certified Solid Waste Facility Operator: [facility] External Provider IMG XR PROCEDURES Final Result * XR Chest 1 View (06/28/2024 12:52 PM EDT) Anatomical Region Laterality Modality Chest Radiographic Tamiko ging 06/28/2024 12:5 2 PM EDT Narrative 06/28/2024 3:02 PM EDT [address] [address] XRay Report Signed Patient: Joan Armendariz MR#: [id number] : 1945 Acct:[id number] Age/Sex: 79 / F ADM Date: 06/28/24 Loc: HO.ED Attending Dr: Ordering Physician: Geovanna Austin Date of Service: 06/28/24 Procedure(s): XR chest 1V Accession Number(s): [id number] cc: Jeni Garcia MD; Geovanna Austin EXAMINATION: [...] MD 06/28/2024 02:59 PM EDT RP Workstation: [employer] Dictated By: Franklin Lepe MD Signed By: <Electronically signed by Franklin Lepe MD in OV> 06/28/24 1459 DD/ 1252 TD/TT: 06/28/24 1259 Certified Solid Waste Facility Operator: BETH Procedure Note Donotuseinterpreter, Image - 06/28/2024 [place] [address] XRay Report Signed Patient: Joan Armendariz RMR#: [id number] : 3Acct:[id number] Age/Sex: 79 / FADM Date: 06/28/24 Loc: .ED Attending Dr: Ordering Physician: Geovanna Austin Date of Service: 06/28/24 Procedure(s): XR chest 1V Accession Number(s): [id number] cc: Jeni Garcia MD; Geovanna Austin EXAMINATION: [...] 06/28/24 1459 DD/ 1252 TD/TT: 06/28/24 1259 Certified Solid Waste Facility Operator: BETH [facility] External Provider IMG XR PROCEDURES Final [...] documented as of this encounter Care Teams Division Controller Relationship Specialty Start Date End Date Jeni Garcia MD [address] [place] [phone] PCP - General Family Medicine 12/16/15 documented as of this encounter
--- OUTSIDE RECORDS SUMMARY | 2025-06-24 13:38 | XMS_ITS | Encounter Summary ---
Author Organization [facility] Address [address] [phone] Phone Care Team Providers Care Hydrochloric Manufacturing Supervisor Name Role Phone Jeni Garcia MD Primary Care Provider + [phone] Reason for Visit * Reason Comments Med Refill Encounter Details Date Type Department Care Team (Late Contact Info) Description 06/17/2025 Refill [facility] [address] [phone] Luke Quinn MD [address] [place] [phone] Social History Tobacco Use Types Packs/Day [...] EST Office Visit [facility] [address] [phone] Luke Quinn MD [address] [place] [phone] documented as of this encounter Visit Diagnoses Not on filedocumented in this encounter Care Teams Hydrochloric Manufacturing Supervisor Relationship Specialty Start Date End Date Jeni Garcia MD [address] [place] [phone] PCP - General Internal Medicine 08/06/21 documented as of this encounter
--- OUTSIDE RECORDS SUMMARY | 2025-06-24 13:38 | XMS_ITS | Encounter Summary ---
Author Organization [employer] Address [address] [facility] 7t [place] [address] Care Team Providers Care Metal Organ Pipe Maker Name Role Phone Jeni Garica MD Primary Care Provider + Reason for Visit * Reason Comments Med Refill Encounter Details Date Type Department Care Team (Late st Contact Info) Description 10/19/[address] [facility] [address] [place], [place] [phone] Jayshree Andrade DO [address] [place], [place] [phone] Social History Tobacco Use Types Packs/Day Years [...] Description 07/05/2025 11:45 AM EDT Office [address] [facility] [address] [place] [phone] Jeni Garcia MD [address] [place] [phone] 09/03/2025 11:45 AM EST Office Visit [facility] [address] [place] [phone] Jeni Garcia MD [address] [place] [phone] documented as of this encounter Visit Diagnoses Not on filedocumented in this encounter Additional Health Concerns Assessment Noted Time PHQ-9 Depression Total Score: 0 11/16/19 23 10:53 AM EST documented as of this encounter Care Teams Metal Organ Pipe Maker Relationship Specialty Start Date End Date Jeni Garcia MD [address] [place] [address] PCP - General Family Medicine 12/16/15 documented as of this encounter
--- OUTSIDE RECORDS SUMMARY | 2025-06-24 13:38 | XMS_ITS | Encounter Summary ---
Author Organization [employer] Address [address] [facility] 7t [place] [address] Care Team Providers Care Stripper Color Name Role Phone Jeni Garcia MD Primary Care Provider + Reason for Visit * Reason Comments Med Refill Encounter Details Date Type Department Care Team (Late st Contact Info) Description 03/04/2025 Refill [facility] [address] [place], [place] [phone] Jeni Garcia MD [address] [place], [place] [phone] Social History Tobacco Use Types Packs/Day Years [...] Description 07/05/2025 11:45 AM EDT Office Visit [facility] [address] [place] [phone] Jeni Garcia MD [address] [place] [address] 09/03/2025 11:45 AM EST Office Visit [facility] [address] [place] [phone] Jeni Garcia MD [address] [place] [address] documented as of this encounter Visit Diagnoses Not on filedocumented in this encounter Additional Health Concerns Assessment Noted Time PHQ-9 Depression Total Score: 0 11/16/19 23 10:53 AM EST documented as of this encounter Care Teams Stripper Color Relationship Specialty Start Date End Date Jeni Garcia MD [address] [place] [phone] PCP - General Family Medicine 12/16/15 documented as of this encounter
--- OUTSIDE RECORDS SUMMARY | 2025-06-24 13:39 | XMS_ITS | Encounter Summary ---
Author Organization [employer] Address [address] [facility] 7t [place] [address] Care Team Providers Care Tower Operator Name Role Phone Jeni Garcia MD Primary Care Provider + Reason for Visit * Reason Comments Med Change Request Encounter Details Date Type Department Care Team ([facility] st Contact Info) Description 05/12/2025 Refill [facility] [address] [place], [place] [phone] Jeni Garica MD [address] [place], [place] [phone] Social History Tobacco Use Types Packs/Day Years [...] Description 07/05/2025 11:45 AM EDT Office Visit [facility] [address] [place] [phone] Jeni Garcia MD [address] [place] [phone] 09/03/2025 11:45 AM EST Office Visit [address] [address] Jeni Garcia MD [address] [place] [phone] documented as of this encounter Visit Diagnoses Not on filedocumented in this encounter Additional Health Concerns Assessment Noted Time PHQ-9 Depression Total Score: 9 04/18/20 11:57 AM EDT documented as of this encounter Care Teams Tower Operator Relationship Specialty Start Date End Date Jeni Garcia MD [address] [place] [phone] PCP - General Family Medicine 12/16/15 documented as of this encounter
--- OUTSIDE RECORDS SUMMARY | 2025-06-24 13:39 | XMS_ITS | Encounter Summary ---
Author Organization [employer] Address [address] [place] [address] Care Team Providers Care Cattle Dipper Name Role Phone Jeni Garcia MD Primary Care Provider + Encounter Details Date Type Department Care Team (Late st Contact Info) Description 09/27/2022 [facility] [address] [place] [phone] Jeni Garcia MD [address] [place] [phone] Social History Tobacco Use Types Packs/Day Years [...] Department Care Team (Late Contact Info) Description 07/05/2025 11:45 AM EDT Office Visit [facility] [address] [place] [phone] Jeni Garcia MD [address] [place] [phone] 09/03/2025 11:45 AM EST Office Visit [address] [phone] Jeni Garcia MD [address] [place] [address] [phone] documented as of this encounter Visit Diagnoses Not on filedocumented in this encounter Care Teams Cattle Dipper Relationship Specialty Start Date End Date Jeni Garcia MD [address] [place] [phone] PCP - General Family Medicine 12/16/15 documented as of this encounter
--- OUTSIDE RECORDS SUMMARY | 2025-06-24 13:39 | XMS_ITS | Encounter Summary ---
Author Organization [employer] Address [address] [place] [address] 7t [place] [address] Care Team Providers Care International Sales Representative Name Role Phone Jeni Garcia MD Primary Care Provider + Reason for Visit * Reason Onset Date Comments C Pap 02/22/2023 Encounter Details Date Type Department Care Team ([facility] st Contact Info) Description 02/22/2023 Telephone [facility] [address] [place], [place] [phone] Jeni Garcia MD 230 [place], [place] [phone] C Pap Social History Tobacco Use Types [...] If any questions please contact pt at [phone] (divehi speaking) * Telephone Encounter - Temi Bojorquez - 02/22/2023 2:44 PM EDT Tc from Pt requesting a script for Cpap Machine talk on appt on 02/15 with provider. Pt give fax number to send script to [facility] # [phone]. PCP Dr. Garcia documented in this encounter Plan of Treatment Upcoming Encounters Date Type Department Care Team (Late st Contact Info) Description 07/05/2025 11:45 AM EDT Office Visit [facility] [address] [place] [phone] Jeni Garcia MD [address] [place] [address] 09/03/2025 11:45 AM EST Office Visit [facility] [address] [place] [address] Jeni Garcia MD [address] [place] [address] documented as of this encounter Visit Diagnoses Not on filedocumented in this encounter Additional Health Concerns Assessment Noted Time PHQ-9 Depression Total Score: 0 11/16/19 10:53 AM EST documented as of this encounter Care Teams International Sales Representative Relationship Specialty Start Date End Date Jeni Garcia MD [address] [place] [address] PCP - General Family Medicine 12/16/15 documented as of this encounter
--- OUTSIDE RECORDS SUMMARY | 2025-06-24 13:39 | XMS_ITS | Encounter Summary ---
Author Organization [employer] Address [address] [place] [address] 7t [place] [address] Care Team Providers Care Radar Engineer Name Role Phone Jeni Garcia MD Primary Care Provider + Reason for Visit * Reason Onset Date Comments Call Back Request 01/02/2025 Encounter Details Date Type Department Care Team ([facility] Contact Info) Description 01/02/2025 Telephone [facility] MEDICINE 230 [place], [place] [phone] Jeni Garcia MD 230 [place], [place] [phone] Call Back Request Social History Tobacco Use [...] visit because they dohave another appt prior. Research Geologist did inform them on 15 min mao period but forwarding message as anFYI. Please contact Daughter at [phone]. documented in this encounter Plan of Treatment Upcoming Encounters Date Type Department Care Team (Late st Contact Info) Description 07/05/2025 11:45 AM EDT Office Visit [facility] [address] [place] [address] Jeni Garcia MD [address] [place] [address] 09/03/2025 11:45 AM EST Office Visit [facility] [address] [place] [address] Jeni Garcia MD 230 [place] [address] documented as of this encounter Visit Diagnoses Not on filedocumented in this encounter Additional Health Concerns Assessment Noted Time PHQ-9 Depression Total Score: 0 11/16/19 23 10:53 AM EST documented as of this encounter Care Teams Radar Engineer Relationship Specialty Start Date End Date Jeni Garcia MD 230 [place] [address] PCP - General Family Medicine 12/16/15 documented as of this encounter
--- OUTSIDE RECORDS SUMMARY | 2025-06-24 13:39 | XMS_ITS | Encounter Summary ---
Author Organization [employer] Address [address] [place] [address] 7t [place] [address] Care Team Providers Care Cold Roller Name Role Phone Jeni Garcia MD Primary Care Provider + Reason for Referral * Consultation (Routine) - Authorized Specialty Diagnoses / Procedures Referred By Contac t Referred To Contact Pharmacy Diagnoses Hypertension Antonia Harper MD 230 [place] [address] Phone: tel: fax: Referral ID Status Reason Start Date Expiration Date Visits Requested Visits Authorized [id number] Authorized Continuity of Care 06/20/2025 06/20/2026 6 6 Encounter Details Date Type Department Care Team (Late st Contact Info) Description 06/20/2025 Orders Only [facility]INE 230 [place], [place] [phone] Jeni Garcia MD 230 [place], [place] [phone] Hypertension (Primary Dx) Social History Tobacco Use Types [...] your housing situation today? I have dimitry sing 02/08/[address] you li [...] Description 07/05/2025 11:45 AM EDT Office Visit [facility] [address] [place] [address] Jeni Garcia MD [address] [place] [address] 09/03/2025 11:45 AM EST Office Visit [facility] [address] [place] [address] Jeni Garcia MD [address] [place] [address] Scheduled Referrals Name Type Priority Associated Diagnoses Orde r Schedule Referral to Pharmacy [place] Outpatient Referral Routine Hypertension Ordered: 06/20/2025 documented as of this encounter Visit Diagnoses Diagnosis Hypertension- Primary Unspecified essential hypertension documented in this encounter Additional Health Concerns Assessment Noted Time PHQ-9 Depression Total Score: 9 04/18/20 25 11:57 AM EDT documented as of this encounter Care Teams Cold Roller Relationship Specialty Start Date End Date Jeni Garcia MD [address] [place] [phone] PCP - General Family Medicine 12/16/15 documented as of this encounter
--- OUTSIDE RECORDS SUMMARY | 2025-06-24 13:39 | XMS_ITS | Clinical Summary ---
Author Organization [facility] Address [address] [facility] [address] [place] [address] Phone Care Team Providers Care Public Works Director Name Role Phone Jeni Garcia MD Primary Care Provider + [phone] Allergies Active Allergy Reactions Criticality Noted Date [...] time each day with dinner 30 capsule 03/04/20 22 Active Advair HFA 115-21 MCG/ACT inhaler INHALE 2 PUFF EVERY 12 HOURS FOR 30 DAYS 03/29/20 23 Active Cholecalciferol (Vitamin D3) 125 MCG (5000 UT) capsule TAKE 1 CAPSULE BY MOUTH EVERY TUESDAY AND TUESDAY 24 capsule 1 06/24/20 25 Active Cholecalciferol (Vitamin D3) 125 MCG (5000 UT) capsule TAKE 1 CAPSULE BY MOUTH EVERY TUESDAY AND TUESDAY 24 capsule 1 12/19/19 25 025 Discontinued Active Problems Problem Noted Date [...] Encounters Date Type Department Care Team Description 06/17/2025 Refill [facility] [address] [phone] Luke Quinn MD 04/02/2025 Orders Only [facility] [address] [phone] Luke Quinn MD Hypertension from Last 3 [...] Visit [facility] [address] [phone] Luke Quinn MD [address] [phone] Health Maintenance Due Date Last Done Comments Diabetes: Ophthalmology Exam 12/17/2024 Diabetes: Pedal Pulse Checked 12/17/2024 Diabetes: Sensory Foot Exam 12/17/2024 Diabetes: Visual Foot Exam 12/17/2024 Diabetes: Hemoglobin A1C 12/24/2024 09/25/2024, 11/0 12/2022 Influenza Vaccine (#1) 2025 , 07/22/2022, 09/23/2021, Additional history exists Pneumococcal Vaccine: [...] Quinn MD LAB BLOOD ORDERABLES Final Result [facility] [address] [place] [phone] from Last 3 Months or Most Recently Relevant to Health Maintenance Insurance Dual [employer] D[employer] Dual Elig Dc Medicaid [place] Care Teams Public Works Director Relationship Specialty Start Date End Date Jeni Garcia MD [address] [place] [phone] PCP - General Internal Medicine 08/06/21
--- OUTSIDE RECORDS SUMMARY | 2025-06-24 13:39 | XMS_ITS | Encounter Summary ---
Author Organization [employer] Address [address] [place] [address] 7t [place] [address] Care Team Providers Care Quarry Supervisor Dimension Stone Name Role Phone Jeni Garcia MD Primary Care Provider + Encounter Details Date Type Department Care Team ([facility] Contact Info) Description 04/04/2023 Orders Only [facility] MEDICINE [address] [place] [address] [phone] Jeni Garcia MD [address] [place] [address] [phone] Social History Tobacco Use Types Packs/Day Years [...] Upcoming Encounters Date Type Department Care Team ([facility] Contact Info) Description 07/05/2025 11:45 AM EDT Office Visit [facility] MEDICINE [address] [place] [address] [phone] Jeni Garcia MD 230 [place], [place] [phone] 09/03/2025 11:45 AM EST Office Visit [facility] MEDICINE 230 [place], [place] [phone] Jeni Garcia MD 230 [place], [place] [phone] documented as of this encounter Visit Diagnoses Not on filedocumented in this encounter Additional Health Concerns Assessment Noted Time PHQ-9 Depression Total Score: 0 11/16/19 23 10:53 AM EST documented as of this encounter Care Teams Quarry Supervisor Dimension Stone Relationship Specialty Start Date End Date Jeni Garcia MD [address] [place] [address] [phone] PCP - General Family Medicine 12/16/15 documented as of this encounter
--- OUTSIDE RECORDS SUMMARY | 2025-06-24 13:39 | XMS_ITS | Encounter Summary ---
Author Organization [email or web address] Address [address] [place] [address] 7t [place] [address] Care Team Providers Care Cookie Padder Name Role Phone Jeni Garcia MD Primary Care Provider + Reason for Visit * Reason Onset Date Comments C pap request 01/26/2023 Encounter Details Date Type Department Care Team ([facility] st Contact Info) Description 01/26/2023 Telephone [facility]INE 230 [place], [place] [phone] Jeni Garcia MD 230 [place], [place] [phone] C pap request Social History Tobacco Use [...] on CPAP machine. Please contact pt at [phone] (Eritrean speaker) * Telephone Encounter - Aleshia Stark [...] Description 07/05/2025 11:45 AM EDT Office Visit [facility] MEDICINE [address] [place] [address] Jeni Garcia MD [address] [place] [address] 09/03/2025 11:45 AM EST Office Visit [address] [address] Jeni Garcia MD [address] [place] [address] documented as of this encounter Visit Diagnoses Not on filedocumented in this encounter Additional Health Concerns Assessment Noted Time PHQ-9 Depression Total Score: 0 01/31/20 23 10:53 AM EST documented as of this encounter Care Teams Cookie Padder Relationship Specialty Start Date End Date Jeni Garcia MD [address] [place] [address] PCP - General Family Medicine 12/16/15 documented as of this encounter
--- OUTSIDE RECORDS SUMMARY | 2025-06-24 13:39 | XMS_ITS | Clinical Summary ---
Author Organization [address] [facility] Address 175 [place] [address] Phone Care Team Providers Care Transport Truck Driver Name Role Phone Jeni Garcia MD Primary Care Provider + [phone] Allergies Active Allergy Reactions Criticality Noted Date [...] osteoarthritis of left knee 01/02 Myocardial infarction ([facility] V24, [facility] V28) 01/02/2025 S/P angioplasty with stent 01/02/2025 Status post total right knee replacement 025 Cholelithiasis 12/03/2024 CKD (chronic kidney disease) , stage III ([facility] V24, [facility] V28) 11/15/2024 Severe obesity (BMI 35.0-39. 9) with comorbidity ([facility] V24, [facility] V28) 11/15/2024 Dental plaque 11/13/2024 Cellulitis 09/04/2024 Fracture of vertebra due to osteoporosis with delayed healing 07/06/2024 Overview (11/15/2024): Xray L-spine on 06/28: L4 fracture/sp T12 vertebral augmentation-previous fx- Leg pain, diffuse, right 06/28/2024 Celiac artery stenosis ([facility] V24) 06/13/2024 Renal artery stenosis ([facility] V24) 06/13/2024 Superior mesenteric artery stenosis ([facility] V24 ) 06/13/2024 Open broken tooth [...] pain 06/28/2017 Hypothyroidism 06/28/2017 Rheumatoid arthritis, adult ([facility] V24, [facility] V28) 06/28/2017 Degeneration of lumbar intervertebral disc 12/10 Chronic obstructive pulmonar y disease ([facility] V24, [facility] V28) 12/11/2012 Angle-closure glaucoma 09/29/2012 GERD (gastroesophageal reflux disease) 2 Eosinophil count raised 05/15/2012 Hypertension 04/12/2012 Gait instability 04/12/2012 Neck pain 04/12/2012 Encounters Date Type Department Care Team Description 04/10/2025 9:00 AM EDT Office Visit Orthopedic Surgery - [address] [phone] Lazaro Saleh MD Post-traumatic osteoarthritis of left knee (Primary Dx); Gait instability; S/P angioplasty with stent from Last 3 Months Surgical History Surgery Date Site/Laterality Comments SHOULDER SURGERY 01/06/2023 Left PROCEDURE: HISTORICAL SHOULDER SURGERY; COMMENT: RTSA Medical History Medical History Date Comments Heart attack ([facility] V24, [facility] V28) 12/22/19 DURING A CRUISE Social History [...] PM EDT Office Visit Orthopedic Surgery - [place] 250 175 [facility] [address] [place] [phone] Eloisa Torres NP [address] [phone] Health Maintenance Due Date Last Done Comments Zoster Vaccines (1 of 2) 03/19/2015 01/22/2015 RSV Immunization Adult Patients (1 - 1-dose 75+ series) 2018 Cholesterol Screening (Lipid Panel) 09/25/2022 Falls Risk Assessment 09/25/2022 Medicare Annual Wellness Visit 09/25/2022 Osteoporosis Screening (Bone Density Screening) 09/25/2022 Social Influencers of Health Screening 09/25/2022 Depression Screening 10/17/2024 COVID-19 Vaccine ( season) 2025 09/23/2021, 12/30/2020, 12/02/2020 Influenza Vaccine (#1) 2025 [...] Procedure Name Priority Date/Time Associated Diagnosis Comments OH ARTHROCENTESIS/ASP IRATION/INJECTION MAJOR JOINT/BURSA W/O U/S GUIDANCE Routine 04/10/2025 9:00 AM EDT Post-traumatic osteoarthritis of left knee from Last 3 Months Results * OH ARTHROCENTESIS/ASPIRATION/INJECTION MAJOR JOINT/BURSA W/O U/S GUIDANCE (04/10/2025 [...] from Last 3 Months Insurance MEDICAID - [place] UNITED [employer] MEDICARE Advance Directives Documents on File Type Date Recorded Patient French Tutor Expl anation Health Care Decision (hx) 03/27/2019 [...] 03/27/2019 AD CEJA DIRECTIVE Care Teams Transport Truck Driver Relationship Specialty Start Date End Date Jeni Garcia MD [address] [place] [phone] PCP - General 05/19/21
--- OUTSIDE RECORDS SUMMARY | 2025-06-24 13:39 | XMS_ITS | Encounter Summary ---
Author Organization [employer] Address [address] [facility] 7t [place] [address] Care Team Providers Care Coordinator Mining Products Name Role Phone Jeni Garcia MD Primary Care Provider + Reason for Visit * Reason Comments Med Change Request Encounter Details Date Type Department Care Team ([facility] st Contact Info) Description 06/24/2025 Refill [facility] MED[facility] 230 [place], [place] [phone] Jeni Garcia MD 230 [place], [place] [phone] Social History Tobacco Use Types Packs/Day Years [...] Office Visit [facility] MED[facility]INE [address] [place] [phone] Jeni Garcia MD [address] [place] [address] 09/03/2025 11:45 AM EST Office Visit [address] [address] Jeni Garcia MD [address] [place] [address] documented as of this encounter Visit Diagnoses Not on filedocumented in this encounter Additional Health Concerns Assessment Noted Time PHQ-9 Depression Total Score: 9 04/18/20 11:57 AM EDT documented as of this encounter Care Teams Coordinator Mining Products Relationship Specialty Start Date End Date Jeni Garcia MD [address] [place] [phone] PCP - General Family Medicine 12/16/15 documented as of this encounter
--- OUTSIDE RECORDS SUMMARY | 2025-06-24 13:39 | XMS_ITS | Encounter Summary ---
Author Organization [employer] Address [address] [facility] 7t [place] [address] Care Team Providers Care Environmental Emergencies Planner Name Role Phone Jeni Garcia MD Primary Care Provider + Encounter Details Date Type Department Care Team (Latest Contact Info) Description 06/24/2025 Travel Social History Tobacco Use Types Packs/Day [...] Description 07/05/2025 11:45 AM EDT Office Visit [facility] MEDICINE [address] [place] [address] Jeni Garcia MD [address] [place] [address] 09/03/2025 11:45 AM EST Office Visit [facility] MED[facility]INE [address] [place] [address] Jeni Garcia MD 230 [place] [address] documented as of this encounter Visit Diagnoses Not on filedocumented in this encounter Additional Health Concerns Assessment Noted Time PHQ-9 Depression Total Score: 9 04/18/20 25 11:57 AM EDT documented as of this encounter Care Teams Environmental Emergencies Planner Relationship Specialty Start Date End Date Jeni Garcia MD [address] [place] [phone] PCP - General Family Medicine 12/16/15 documented as of this encounter
--- OUTSIDE RECORDS SUMMARY | 2025-06-24 13:39 | XMS_ITS | Encounter Summary ---
Author Organization [employer] Address [address] [place] [address] 7t [place] [address] Care Team Providers Care Telegraphic Instrument Supervisor Name Role Phone Jeni Garcia MD Primary Care Provider + Encounter Details Date Type Department Care Team (Late Contact Info) Description 02/25/2023 Orders Only [facility] MEDICINE [address] [place] [address] [phone] Jeni Garcia MD [address] [place] [address] [phone] Obstructive sleep apnea syndrome (Primary Dx) Social [...] Description 07/05/2025 11:45 AM EDT Office Visit [facility] MED[facility]INE [address] [place] [address] Jeni Garcia MD 230 [place], [place] [phone] 09/03/2025 11:45 AM EST Office Visit [facility] MED[facility]INE [address] [place] [address] Jeni Garcia MD [address] [place] [phone] documented as of this encounter Visit Diagnoses Diagnosis Obstructive sleep apnea syndrome- Primary Obstructive sleep apnea (adult) (pediatric) documented in this encounter Additional Health Concerns Assessment Noted Time PHQ-9 Depression Total Score: 0 11/16/19 23 10:53 AM EST documented as of this encounter Care Teams Telegraphic Instrument Supervisor Relationship Specialty Start Date End Date Jeni Garcia MD [address] [place] [phone] PCP - General Family Medicine 12/16/15 documented as of this encounter
--- OUTSIDE RECORDS SUMMARY | 2025-06-24 13:39 | XMS_ITS | Encounter Summary ---
Author Organization [employer] Address [address] [facility] 7t [place] [address] Care Team Providers Care Delivery Driver/Customer Service Name Role Phone Jeni Garcia MD Primary Care Provider + Reason for Visit * Reason Onset Date Comments Chart Prep 06/21/2025 Encounter Details Date Type Department Care Team ([facility] st Contact Info) Description 06/21/2025 Telephone [facility] MED[facility]INE 230 [place], [place] [phone] Jeni Garcia MD 230 [place], [place] [phone] Chart Prep Social History Tobacco Use Types Packs/Day Years [...] encounter Miscellaneous Notes * Telephone Encounter - Natanael Weinstein MA - 06/21/2025 10:28 AM EDT Chart Prep Labs: done Images: done Referrals: complete Vaccines due: Covid, Flu, RSV, and Zoster Screenings: mammogram Overdue care gaps: A1c, Glucose, PHQ-9, and KIMBERLY-7 documented in this encounter Plan of Treatment Upcoming Encounters Date Type Department Care Team (Late st Contact Info) Description 07/05/2025 11:45 AM EDT Office Visit [facility] MED[facility]INE [address] [place] [address] Jeni Garcia MD [address] [place] [address] 09/03/2025 11:45 AM EST Office Visit [facility] MED[facility]INE [address] [place] [address] [phone] Jeni Garcia MD [address] [place] [phone] documented as of this encounter Visit Diagnoses Not on filedocumented in this encounter Additional Health Concerns Assessment Noted Time PHQ-9 Depression Total Score: 9 04/18/20 25 11:57 AM EDT documented as of this encounter Care Teams Delivery Driver/Customer Service Relationship Specialty Start Date End Date Jeni Garcia MD [address] [place] [phone] PCP - General Family Medicine 12/16/15 documented as of this encounter
--- OUTSIDE RECORDS SUMMARY | 2025-06-24 13:39 | XMS_ITS | Clinical Summary ---
Author Organization [employer] Address [address] [facility] [address] [place] [address] Care Team Providers Care Trolley Worker Name Role Phone Jeni Garcia MD [...] TABLET BY MOUTH EVERY EVENING 022 Active albuterol 108 (90 Base) MCG/ACT inhaler Inhale 2 puffs every 4 (four) hours if needed for wheezing or shortness of breath. 18 g 2 023 Active betamethasone valerate (Valisone) 0.1 % cream APPLY TOPICALLY TWICE A DAY 30 g 1 024 Active albuterol 1.25 MG/3ML nebulizer solution Take 3 mL (1.25 mg) by nebulization every 6 (six) hours if needed for wheezing. 75 mL 3 025 2025 Active cholecalciferol (Vitamin D-3) 125 MCG (5000 UT) capsule Take 1 capsule by mouth. Every Tuesday and Active clopidogrel (Plavix) 75 MG tablet Take 1 tablet (75 mg) by mouth Once per day. 30 tablet Active nitroglycerin (Nitrostat) 0.[address] 1 tablet (0.4 mg) under the tongue every 5 (five) minutes if needed for chest pain. 90 tablet 025 2025 Active gabapentin (Neurontin) 100 MG capsuleIndication s:Degeneration of lumbar intervertebral disc,Meralgia paresthetica of right side TAKE 1 CAPSULE BY MOUTH THREE TIMES A DAY 90 capsule Active olmesartan-hydroC HLOROthiazide (BENIcar HCT) 40-12.5 MG tablet Take 1 tablet by mouth Once per day. Sp CAD/DC losartan 30 tablet Active famotidine (Pepcid) 20 MG tablet Take 1 tablet (20 mg) by mouth Once per day. 30 tablet 025 2025 Active levothyroxine (Synthroid, Levoxyl) 50 MCG tabletIndications :Acquired hypothyroidism TAKE 1 TABLET BY MOUTH EVERY DAY IN THE MORNING 90 tablet 1 Active carvedilol (Coreg) 6.25 MG tabletIndications :Primary hypertension TAKE 1 TABLET BY MOUTH WITH BREAKFAST AND 1 WITH EVENING MEAL 180 tablet Active fluticasone (Flonase) 50 MCG/ACT nasal spray SPRAY 2 SPRAYS INTO EACH NOSTRIL IN THE MORNING SHAKE GENTLY/PRIME BEFORE 1ST USE&CLEAN TIP 48 mL Active ferrous sulfate 325 (65 Fe) MG EC tablet Take 1 tablet by mouth Once per day. Active lidocaine (Lidoderm) 5 % patch Apply topically. 023 2024 Active aspirin 81 MG EC tablet Take 81 mg by mouth Once per day. Active atorvastatin (Lipitor) 40 MG tablet Take 40 mg by mouth Once per day. Active senna-docusate sodium (Senokot-S) 8.6-50 MG tablet Take 1 tablet by mouth Once per day. 30 tablet 025 2025 Active Advair HFA 115-21 MCG/ACT inhaler Inhale 2 puffs in the morning and at bedtime. Rinse mouth with water after use to reduce aftertaste and incidence of candidiasis. Do not swallow. 12 g 11 Active Diclofenac Sodium 1 % gel Apply 1 inch topically if needed in the morning and at bedtime (pain). 60 g 025 2024 Active Polyvinyl Alcohol-Povidone 5-6 MG/ML solution Administer 2 drops into affected eye(s) if needed in the morning, at noon, and at bedtime (dry eye/irritation) . 15 mL 3 Active Spiriva Respimat 1.25 MCG/ACT inhaler INHALE 2 PUFFS BY MOUTH EVERY DAY 022 2024 Discontinued(M ed list cleanup (will not trigger notification to Pharmacy)) Advair HFA 115-21 MCG/ACT inhaler INHALE 2 PUFF EVERY 12 HOURS FOR 30 DAYS 023 2024 Discontinued(R eorder (will not trigger notification to Pharmacy)) loratadine (Claritin) 10 MG tablet TAKE 1 TABLET BY MOUTH EVERY DAY IN THE MORNING 90 tablet 1 024 2024 Discontinued(M ed list cleanup (will not trigger notification to Pharmacy)) carvedilol (Coreg) 6.25 MG tabletIndications :Primary hypertension TAKE 1 TABLET BY MOUTH WITH BREAKFAST AND EVENING MEAL 180 tablet 1 025 2024 Discontinued pantoprazole (ProtoNix) 40 MG EC tablet Take 1 tablet by mouth 2 times daily. 025 2024 Discontinued(T herapy completed) senna-docusate sodium (Senokot-S) 8.6-50 MG tablet Take 1 tablet by mouth Once per day. 30 tablet 11 025 2024 Discontinued(R eorder (will not trigger notification to Pharmacy)) sucralfate (Carafate) 1 g tablet Take 1 tablet (1 g) by mouth before breakfast, before lunch, before evening meal, and at bedtime. 120 tablet 025 2024 Discontinued(M ed list cleanup (will not trigger notification to Pharmacy)) fluticasone (Flonase) 50 MCG/ACT nasal spray SPRAY 2 SPRAYS INTO EACH NOSTRIL IN THE MORNING SHAKE GENTLY/PRIME BEFORE 1ST USE&CLEAN TIP 48 mL 025 2024 Discontinued atorvastatin (Lipitor) 80 MG tablet Take 1 tablet (80 mg) by mouth at bedtime. 80 tablet 11 025 2024 Discontinued(D ose adjustment) lactulose (Chronulac) 10 GM/15ML solution Take 15 mL (10 g) by mouth if needed each day (constipation). 450 mL 1 025 2024 Active Problems Problem Noted Date Diagnosed Date Meningioma 06/24/2025 Chest wall contusion, right, subsequent encounte r 06/24/2025 Upper GI bleeding 05/28/2025 Assessment & Plan (05/28/2025 11:33 AM EDT): Case presented to [facility] ER provider, patient went through EMS Hematoma of groin 04/18/2025 Assessment & Plan (04/18/2025 3:27 PM EDT): On catheterization site. Patient is improving, advised to put ice on affected area Iron supplementation is off for now due to constipation and GERD symptoms, she will restart iron supplementation in 1 week and follow-up hemoglobin in 3 months Coronary artery disease invo lving on[place] coronary artery of on[place] heart 01/03/2025 Assessment & Plan (06/24/2025 11:02 AM EDT): She's back on plavix + ASA Assessment & Plan (04/23/2025 2:02 PM EDT): It seems to be stable, will continue aspirin, Plavix, atorvastatin, metoprolol and LESLYE inhibitor. Follow-up with cardiology, she has not started cardiac rehab due to potential mesenteric vascular insufficiency and limited exertion due to arthralgias. Assessment & Plan (04/18/2025 3:24 PM EDT): She has stable angina, doing well on Plavix, aspirin, atorvastatin 80 mg and losartan. She can start cardiac rehab as tolerated and follow-up with cardiology She has sublingual nitroglycerin to take as needed exertional chest pain. Assessment & Plan (01/03/2025 1:46 PM EDT): [...] me. Stage 3a chronic kidney disease 12/07/2024 Assessment & Plan (04/18/2025 3:26 PM EDT): GFR has remained stable. Continue losartan and atorvastatin. Follow-up with renal Dental plaque 11/13/2024 Normal oral exam 11/13/2024 Fracture of vertebra due to osteoporosis with [...] (up to 300 mg, hold for sedation). Renal artery stenosis 06/13/2024 Superior mesenteric artery stenosis 06/13/2024 Assessment & Plan (04/23/2025 2:03 PM EDT): Patient has postprandial abdominal pain, she seems to be symptomatic. Case was discussed with vascular surgery office and they will call her this or next week to schedule an appointment for further evaluation. She will continue aspirin, Plavix and atorvastatin for now. Advised to go to ED if pain is not improved, advised to switch to soft to liquid diet, avoid high-protein meals and carbs. Celiac artery stenosis 06/13/2024 Assessment & Plan (04/18/2025 3:25 PM EDT): Status post SMA stent last month. Had an catheterization site hematoma which is now resolved. Continue aspirin, Plavix, atorvastatin and follow-up with vascular surgeon. LDL goal is 70 Assessment & Plan (01/23/2025 8:27 PM EDT): Will call vascular surgery to schedule an earlier appointment, see above Open broken tooth due to trauma without complica tion 04/26/2024 Vitamin D deficiency 03/13/2024 Assessment & Plan [...] BID Tylenol PRN Toradol injection IM today Meralgia paresthetica of right side 04/26/2023 Assessment & Plan (04/26/2023 1:33 PM EDT): information given to patient, reassurance start gabapenin and reconsult PRN Calculus of lower urinary tract 11/16/2022 Assessment & Plan (11/16/2022 11:33 AM EST): Resolved. DC flomax Encouranged increase PO fluids BMI 35.0-35.9,adult 10/19/2022 Edema of lower extremity 10/19/2022 Assessment & Plan (12/12/2023 1:42 PM EST): Resolved, neg DVT studies. It was related to amlodipine. Amlodipine is dc Monitor BP as above Greater trochanteric pain syndrome 10/19/2022 Assessment & Plan (04/25/2024 2:39 PM EDT): - pt with significant recurrent hip pain, increase Tylenol to 1000 mg BID x 2 weeks - continue treatment for RA and f/u with rheumatology - will refer to PT and re evaluate pain in 6-8w History of cholecystectomy 10/19/2022 Primary osteoarthritis of left knee 10/19/2022 Assessment & Plan (11/16/2022 11:34 AM EST): Continue ambulation with a cane. FU with rheumatology for knee steroid injection. Asthma 10/19/2022 Sleep apnea 10/19/2022 Assessment & [...] cuff 10/19/2022 Venous insufficiency of leg 10/19/2022 Prediabetes 09/17/2021 Primary osteoarthritis of both [...] Rheumatoid arthritis, adult 06/28/2017 Assessment & Plan (04/18/2025 3:26 PM EDT): She is back on MTX and folic acid Follow-up with rheumatology Assessment & Plan (04/26/2023 1:35 PM EDT): On MTX + folic acid Continue to follow up with rheuamtology (Dr. Rizvi) Degeneration of lumbar intervertebral disc 12/10 Assessment & Plan (04/23/2025 2:05 PM EDT): She has not had epidural injection within the past month, pain has not changed. Continue gabapentin twice daily and use Tylenol as needed in between Advised to follow-up with rheumatology, restart methotrexate Assessment & Plan (01/23/2025 8:29 PM EDT): [...] obstructive pulmonary disease 12/11/2012 Assessment & Plan (06/24/2025 10:59 AM EDT): Restart Advair bid Use Assessment & Plan (04/23/2025 2:05 PM EDT): She is doing well, refill on Advair and albuterol. See previous note Assessment & Plan (01/23/2025 8:26 PM EDT): Doing well on Advair, Singulair and albuterol as needed Follow-up with career development manager Assessment & Plan (01/03/2025 1:36 PM EDT): [...] glaucoma 09/29/2012 GERD (gastroesophageal reflux disease) 2 Assessment & Plan (04/23/2025 2:04 PM EDT): She has GERD but may have gastritis probably as a result of iron supplementation. Hold iron for 1 or 2 weeks and use sucralfate as needed Continue famotidine for now as it does not interfere with Plavix, may decide to change to a different PPI if symptoms do not improve with sucralfate. Patient has appointment with GI in May 2025 Assessment & Plan (04/18/2025 3:26 PM EDT): DC Protonix. She will hold iron and calcium for 1 week and start famotidine daily. Advised to restart iron supplementation first for 1 week and then calcium, she will hold off on the days that she has more GERD. Advised regarding small fracture meals, follow-up with GI Eosinophil count raised 05/15/2012 Abnormal gait 04/12/2012 [...] Noted Date Diagnosed Date Resolved Date Chronic ulcer of right thigh 01/22/2025 04/18/2025 Assessment & Plan (01/23/2025 8:27 PM EDT): May be due to friction with previous Greenberg catheter. She will have also dressing by RN today Continue daily dressing with topical antibiotics and follow-up with me in a month, reconsult as needed Bandemia 01/04/2025 04/18/2025 Assessment & Plan (01/04/2025 10:38 AM EDT): [...] she will follow-up with PCP and cardiology Influenza A 12/07/2024 01/03/2025 Assessment & Plan [...] rest at home. FU on Tuesday with Chief Science Officer. Will call tomorrow for health status check. Cellulitis 09/04/2024 04/18/2025 Assessment & Plan (09/04/2024 5:32 PM EST): Likely a bacterial infection on the left arm. - Prescribed cephalexin (Keflex) 500 MG capsule 09/04/24 - ER precautions discussed. - Seek medical attention for worsening symptoms. Leg pain, diffuse, right 06/28/202412/2024 Assessment & Plan (06/29/2024 3:46 PM EDT): [...] scheduled at the end of the month Abdominal pain 04/16/2024 04/18/2025 Assessment & Plan (01/23/2025 8:29 PM EDT): [...] case symptoms worsen to go to ED Cough in adult 08/22/2023 01/03/2025 Assessment & Plan (08/22/2023 11:43 AM EST): Has COPD exacerbation Prescription for medrol 7x days Complete zpak today Pro air inhaler + spacer Q6H. Rest at home Follow up in 2 months Obesity, morbid 08/19/2023 08/19/2023 04/18/2025 Assessment & Plan (03/13/2024 2:49 PM EDT): Discussed re weight reduction options including exercise, life style modifications, diet, referral to clinical data specialist. Discussed re lower calorie intake, increase dietary fiber Preoperative examination 02/15/202312/2022 Assessment & Plan (02/15/2023 [...] Atelectasis 10/19/2022 08/19/2023 Biliary calculus 10/19/2022 08/19/2023 Closed fracture of fifth metatarsal bone 10/19/2022 04/18/2025 Chest pain 10/19/2022 04/18/2025 Pain in lower limb 10/19/2022 Right flank pain 10/19/2022 04/18/2025 Vascular insufficiency 10/19/202208/19 Ulcer of nose 10/19/2022 08/19/2023 Hematuria 10/19/2022 04/18/2025 Acute cystitis with hematuria 10/19/2022 08/19/2023 Precordial pain 06/28/2017 08/19/2023 Encounters Date Type Department Care Team Description 06/24/2025 10:00 AM EDT Office Visit [facility] [address] [facility] [place] [address] Jeni Garcia MD Chest wall contusion, right, subsequent encounter (Primary Dx); Gastroesophageal reflux disease, unspecified whether esophagitis present; Meningioma ([facility]); Prediabetes; Coronary artery disease of [place] artery of [place] heart with stable angina pectoris ([facility]); Chronic obstructive pulmonary disease, unspecified COPD type ([facility]); Superior mesenteric artery stenosis ([facility]/H[facility]) 06/24/2025 Refill [facility] [address] [place] [address] Jeni Garcia MD 06/24/2025 Travel 06/21/2025 Telephone [facility] [address] [facility] [address] Jeni Garcia MD Chart Prep 06/20/2025 Orders Only [facility] [address] [place] [address] Jeni Garcia MD Hypertension (Primary Dx) 06/18/2025 Telephone [facility] [address] [place] [address] Jeni Garcia MD ER Follow-up 06/13/2025 Refill [facility] [address] [place] [address] Jeni Garcia MD 06/12/2025 Refill [facility] [address] [place] [address] Jeni Garcia MD Primary hypertension 06/05/2025 Orders Only [facility] External Provider, [facility] 06/03/2025 Results Follow-Up [facility] [address] [place] [address] Jeni Garcia MD CBC auto differential, Prothrombin Time-INR, Partial Thromboplastin Time, Activated (APTT), Additional followed-up results: 7 05/31/2025 Patient Outreach [facility] [address] [place] [address] Jeni Garcia MD Transition Of Care (Tcm) (HDF- scheduled and SDOH screening was completed on 02/08/2025) 05/31/2025 Telephone [facility] [address] [place] [address] ACOSTA 05/28/2025 11:20 AM EDT Office Visit [facility] [address] [place] [address] Rose De La Rosa MD Upper GI bleeding (Primary Dx) 05/28/2025 10:00 AM EDT Office Visit [facility] [address] [place] [address] Keerthi Matute 05/28/2025 Orders Only [facility] DEPARTMENT Provider, Generic External Data 05/28/2025 Telephone [facility] [address] [place] [address] Carie Phelps DDS 05/28/2025 Travel 05/12/2025 Refill [facility] [address] [place] [phone] Jeni Garcia MD 05/09/2025 Orders Only [facility] External Provider, [facility] 04/28/2025 Refill [facility] [address] [place] [address] Jeni Garcia MD Acquired hypothyroidism; Gastroesophageal reflux disease, unspecified whether esophagitis present 04/18/2025 12:00 PM EDT Office Visit [facility] [address] [place] [phone] Jeni Garcia MD Celiac artery stenosis (CMS/HCC) (Primary Dx); Gastroesophageal reflux disease, unspecified whether esophagitis present; Hematoma of groin, subsequent encounter; Coronary artery disease of on[place] artery of [place] heart with stable angina pectoris ([facility]); Rheumatoid arthritis involving multiple sites with positive rheumatoid factor ([facility]); Stage 3a chronic kidney disease ([facility]); Dietary counseling; Exercise counseling; Class 1 obesity due to excess calories with serious comorbidity and body mass index (BMI) of 33.0 to 33.9 in adult 04/18/2025 Travel 04/17/[address] [address] Jeni Garcia MD Chart Prep 04/10/2025 Travel 04/10/[address] [phone] Jeni Garcia MD Appointment Request 04/05/[address] [phone] Jeni Garcia MD Call Back Request from Last 3 Months Immunizations Immunization Administration Dates Next Due Hep B, adult [...] 18 06/24/2025 10:08 AM EDT Oxygen Saturation 100% 05/28/2025 11:03 AM EDT Inhaled Oxygen Concentration - - Weight 70 kg (154 lb 6.4 oz) 06/24/2025 10:08 AM EDT Height 147.3 cm (4' 10 ) 06/24/2025 10:08 AM EDT Body Mass Index 32.27 06/24/2025 10:08 AM EDT Plan of Treatment Upcoming Encounters Date Type Department Care Team (Late st Contact Info) Description 07/05/2025 11:45 AM EDT Office Visit [facility] [address] [place], [place] [phone] Jeni Garcia MD [address] [place] [address] 09/03/2025 11:45 AM EST Office Visit [facility] [address] [place], [place] [phone] Jeni Garcia MD [address] [place] [address] Health Maintenance Due Date Last Done Comments Zoster Vaccines (1 of 2) 03/19/2015 01/22/2015 RSV Patients and Patients Aged 60 years or older (1 - 1-dose 75+ series) 2018 Mammogram 01/03/2025 01/04/2024, 12/15, 12/29/2022, Additional history exists Dental Oral Exam 05/14/2025 11/13/2024, 05/2024, 11/11/2022 Dental Prophylaxis 05/14/2025 11/13/2024, 0 05/24/2024, 11/11/2022 Dental X-Ray: Bitewings 05/25/2025 05/24/2024, 11/11 COVID-19 Vaccine ( - season) 2025 09/23/2021, 12/30/2020, 12/02/2020 Influenza Vaccine (#1) 2025 , 07/22/2022, 09/23/2021, Additional history exists Depression Monitoring 10/19/2025 04/18/2025, 025 SDOH Screening 02/08/2026 02/08/2025 Alcohol/Substance Use Screening 04/18/2026 04/18/2025 Tobacco Screening 05/28/2026 05/28/2025 Diabetes: Hemoglobin A1C 06/24/2026 025, 11/25/2023, 08/19/2023, Additional history exists Dental X-Ray: Full Mouth 05/25/2027 05/24/2024 Lipid [...] 10:21 AM EDT Coronary artery disease of on[place] artery of [place] heart with stable angina pectoris (CMS/HCC) POCT GLYCATED HEMOGLOBIN, TOTAL Routine 06/24/2025 10:20 AM EDT Coronary artery disease of on[place] artery of on[place] heart with stable angina pectoris (CMS/HCC) XR CHEST 2 VIEWS Routine 06/05/2025 4:00 PM EDT LIPASE Routine 05/28/2025 1:24 PM EDT MAGNESIUM Routine 05/28/2025 1:24 PM EDT HEPATIC FUNCTION PANEL Routine 05/28/2025 1:24 PM EDT COMPREHENSIVE METABOLIC PANEL Routine 05/28/2025 1:[address] ABD/PELVIS W/O + W/ IV CONTRAST Routine 05/28/2025 1:22 PM EDT URINALYSIS, COMPLETE, WITH REFLEX TO CULTURE Routine 05/28/2025 12:58 PM EDT OBSX1 Routine 05/28/2025 12:58 PM EDT HIGH SENSITIVITY TROPONIN I Routine 05/28/2025 12:13 PM EDT APTT Routine 05/28/2025 12:13 PM EDT PROTHROMBIN TIME-INR Routine 05/28/2025 12:13 PM EDT CBC WITH AUTO DIFFERENTIAL Routine 05/28/2025 12:13 PM EDT POCT HEMOGLOBIN Routine 05/28/2025 11:35 AM EDT Upper GI bleeding NO CHARGE PROCEDURE Routine 05/28/2025 1 0:00 AM EDT XR CHEST 2 VIEWS Routine 05/09/2025 3:17 PM EDT PROPHYLAXIS - ADULT Routine 11/13/2024 1 :00 PM EST Dental calculus Dental plaque PERIODIC ORAL EVALUATION - ESTABLISHED PATIENT Routine 11/13/2024 1:00 PM EST INTRAORAL - COMPLETE SERIES OF RADIOGRAPHIC IMAGES Routine 05/24/2024 3:00 PM EDT BI MAMMOGRAM SCREENING TOMOSYNTHESIS BILATERAL Routine 01/04/2024 12:30 PM EDT LIPID PANEL WITH REFLEX TO DIRECT LDL Routine 02/15/2023 11:09 AM EDT Primary hypertension from Last 3 Months or Most Recently Relevant to Health Maintenance Results * XR Ribs 2 Views Right (06/24/2025 12:06 PM EDT) Anatomical Region Laterality Modality Rib, Abdomen Right Radiographic Tamiko ging 06/24/2025 12:0 6 PM EDT Narrative 06/24/2025 12:26 PM EDT [place] [address] XRay Report Signed Patient: Joan Armendariz MR#: [id number] : 1945 Acct:[id number] Age/Sex: 80 / F ADM Date: 06/24/25 Loc: [facility] Attending Dr: Jeni Garcia MD Ordering Physician: Jeni Garcia MD Date of Service: 06/24/25 Procedure(s): XR ribs RT 2V Accession Number(s): [id number] cc: Jeni Garcia MD Reason for Exam: [...] Jose Singh MD 06/24/2025 12:23 PM EDT RP Dictated By: Jose Juarez MD Signed By: <Electronically signed by Jose Mosquera MD in OV> 06/24/25 1223 DD/ 1206 TD/TT: 06/24/25 1206 Checkroom Attendant: Procedure Note Donotuseinterpreter, Image - 06/24/[address] [address] XRay Report Signed Patient: Joan Armendariz RMR#: [id number] : 1945cct:[id number] Age/Sex: 80 / FADM Date: 06/24/25 Loc: .[facility] Attending Dr: Jeni Garcia MD Ordering Physician: Jeni Garcia MD Date of Service: 06/24/25 Procedure(s): XR ribs RT 2V Accession Number(s): [id number] cc: Jeni Garcia MD Reason for Exam: [...] Jose Singh MD 06/24/2025 12:23 PM EDT RP Dictated By: Jose Juarez MD Signed By: <Electronically signed by Jose Mosquera MDin OV> 06/24/25 1223 DD/ 1206 TD/TT: 06/24/25 1206 Checkroom Attendant: us Jeni Garcia MD IMG XR PROCEDURES Edited Result - Final * XR Chest 2 Views (06/24/2025 12:06 PM EDT) Only the most recent of3 resultswithin the time period is included. Anatomical Region Laterality Modality Chest Radiographic Taimko ging 06/24/2025 12:0 6 PM EDT Narrative 06/24/2025 12:24 PM EDT [address] [address] XRay Report Signed Patient: Joan Armendariz MR#: [id number] : 1945 Acct:[id number] Age/Sex: 80 / F ADM Date: 06/24/25 Loc: [facility] Attending Dr: Jeni Garcia MD Ordering Physician: Jeni Garcia MD Date of Service: 06/24/25 Procedure(s): XR chest 2V Accession Number(s): [id number] cc: Jeni Garcia MD Reason for Exam: [...] Jose Singh MD 06/24/2025 12:21 PM EDT RP Dictated By: Jose Juarez MD Signed By: <Electronically signed by Jose Mosquera MD in OV> 06/24/25 1221 DD/ 1206 TD/TT: 06/24/25 1206 Checkroom Attendant: Procedure Note Donotuseinterpreter, Image - 06/24/2025 [place] [address] XRay Report Signed Patient: Joan Armendariz RMR#: [id number] : 1945cct:[id number] Age/Sex: 80 / FADM Date: 06/24/25 Loc: [facility] Attending Dr: Jeni Garcia MD Ordering Physician: Jeni Garcia MD Date of Service: 06/24/25 Procedure(s): XR chest 2V Accession Number(s): [id number] cc: Jeni Garcia MD Reason for Exam: [...] Jose Singh MD 06/24/2025 12:21 PM EDT RP Dictated By: Jose Juarez MD Signed By: <Electronically signed by Jose Mosquera MDin OV> 06/24/25 1221 DD/ 1206 TD/TT: 06/24/25 1206 Checkroom Attendant: Jeni Garcia MD IMG XR PROCEDURES Edited [...] Media Lot # [id number] Lot# Expiration Date Blood 06/24/2025 10:2 0 AM EDT Jeni Garcia MD POINT OF CARE TEST ENTER /EDIT ORDERABLES Final Result * Magnesium (05/28/2025 1:24 PM EDT) Magnesium 2.4 1.6 - 2.6 mg/dL [facility] 05/28/2025 1:24 PM EDT 05/28/2025 1:27 PM EDT Generic External Data Provider LAB BLOOD ORDERAB LES Final Result [facility] [address] [place] [phone] * Lipase (05/28/2025 1:24 PM EDT) Lipase 29 8 - 78 U/L [facility] 05/28/2025 1:24 PM EDT 05/28/2025 1:27 PM EDT us Generic External Data Provider LAB BLOOD ORDERAB LES Final Result Performing Organization Address City/[facility]/ZIP Co de Phone Number [facility] [address] [place] [phone] * Hepatic Function Panel (05/28/2025 1:24 PM EDT) Bilirubin, Direct 0.2 0.0 - 0.5 mg/dL [facility] 05/28/2025 1:24 PM EDT 05/28/2025 1:27 PM EDT Generic External Data Provider LAB BLOOD ORDERAB LES Final Result Performing Organization Address [facility] Co de Phone Number [facility] [address] [place] [phone] * (ABNORMAL) Comprehensive Metabolic Panel (05/28/2025 1:24 PM EDT) Sodium 143 135 - 145 mmol/L [facility] Potassium 3.8 3.3 - 5.1 mmol/L [facility] Chloride 112(H) 96 - 108 mmol/L [facility] Carbon Dioxide 24 22 - 29 mmol/L [facility] Anion Gap 11(L) 12 - 20 [facility] LABS Urea Nitrogen (BUN) 15 9 - 16 mg/dL [facility] Creatinine, Serum 0.90 0.5 - 1.4 mg/dL [facility] Creatinine Clr Calc Pharmacy 47.9 [facility] Comment:Provided height and weight: 165.1 cm,72.1 kg.eGFR (calculated from the MDRD study equation) and eCrCl(calculated from the Cockcroft-Gault equation) are based ondifferent parameters and may not yield comparable results.If eCrCl result is absurd, please check patient'sheight/weight. Estimated Glomerular Filt Rate 60 [facility] Comment:Chronic Kidney Disea se: Estimated GFR < 60 mL/min/1.82t9Nonbvz Kidney Disease: Estimated GFR < 15 mL/min/1.73m2 Glucose 104 60 - 115 mg/dL [facility] Calcium 8.6 8.4 - 10.2 mg/dL [facility] Bilirubin, Total 0.3 0.0 - 1.0 mg/dL [facility] Aspartate Amino Transferase 24 5 - 31 U/L [facility] Alanine Aminotransferase 12 0 - 31 U/L [facility] Total Protein 6.7 6.5 - 8.0 g/dL [facility] Albumin Level 3.7 3.5 - 5.0 g/dL [facility] Alkaline Phosphatase 60 39 - 117 U/L [facility] 05/28/2025 1:24 PM EDT 05/28/2025 1:27 PM EDT us Generic External Data Provider LAB BLOOD ORDERAB LES Final Result Performing Organization Address City/State/[facility] Co de Phone Number [facility] [address] [place] [phone] * CT ABD/PELVIS W/O + W/ IV CONTRAST (05/28/2025 1:22 PM EDT) Anatomical Region Laterality Modality Body, Pelvis, Abdomen Computed T omography 05/28/2025 1:22 PM EDT Narrative 05/28/2025 3:04 PM EDT [place] [address] [address] Scan Report Signed Patient: Joan Armendariz MR#: [id number] : 1945 Acct:[id number] Age/Sex: 80 / F ADM Date: 05/28/25 Loc: .ED Attending Dr: Ordering Physician: Skyla Martinez MD Date of Service: 05/28/25 Procedure(s): CT gi bleed abd pel wo/w IVcon Accession Number(s): [id number] cc: Jeni Garcia MD; Skyla Martinez MD Report Number: [id number]: Total DLP = 1115.00 mGy-cm EXAMINATION: CT ABDOMEN PELVIS WITHOUT THEN WITH IV CONTRAST HISTORY: anemic, on Plavix, abd pain, black stool COMPARISON: Comparison is made with the prior examination dated 04/16/2024. TECHNIQUE: CT scan of the abdomen and pelvis was performed before and after the intravenous administration of 85 mL Omnipaque 350. Post contrast imaging was obtained in the arterial and delayed phases. Coronal and sagittal reformatted images were generated and reviewed. Oral contrast material was not administered per department protocol. This CT exam was performed with one or more of the following dose reduction techniques: automated exposure control, adjustment of the mA and/or kV according to patient size, use of iterative reconstruction technique. DLP: 1115 mGy-cm ABDOMEN: LOWER CHEST: The visualized lung bases are clear. There is no pleural effusion. CARDIOVASCULATURE: The heart is normal in size. There is no pericardial effusion. LIVER: The liver is normal in size and contour. No liver mass is identified. The hepatic and portal veins are patent. GALLBLADDER / BILE DUCTS: The gallbladder is surgically absent. There is no intra or extrahepatic biliary ductal dilatation. SPLEEN: The spleen is normal in size. No focal splenic lesion is identified. PANCREAS: The pancreas is unremarkable in appearance. ADRENAL GLANDS: Within normal limits. KIDNEYS/RETROPERITONEUM: No renal calculi are identified. There is no hydronephrosis. No renal masses are identified. LYMPH NODES: No abdominal or pelvic lymphadenopathy. VASCULATURE: There is diffuse atherosclerotic calcification of the abdominal aorta. A stent is seen in the origin of the superior mesenteric artery. There is calcification at the ostia of the bilateral renal arteries. There may be a stenosis on the right. MESENTERY/PERITONEUM: No free fluid. No masses. There is no free intraperitoneal gas. STOMACH: There is wall thickening of the distal esophagus. The stomach is collapsed. SMALL BOWEL: The small bowel is normal in caliber. No contrast extravasation is seen to suggest active GI bleeding. COLON: The colon is unremarkable. No contrast extravasation is seen to suggest active GI bleeding. APPENDIX: The appendix is not seen, however no inflammatory changes are seen adjacent to the cecum . URINARY BLADDER/PELVIC ORGANS: The urinary bladder is unremarkable. The patient is status post hysterectomy. BONES / SOFT TISSUES: The patient is status post kyphoplasty at T12. CT/CT gi bleed abd pel wo/w IVcon IMPRESSION: 1. No contrast extravasation is seen in the GI tract suggest active bleeding. 2. Wall thickening of the distal esophagus. Further evaluation with barium swallow or upper endoscopy is recommended. Electronically signed by: Bony Ricks MD 05/28/2025 03:02 PM EDT RP Dictated By: Bony Ricks MD Signed By: <Electronically signed by Bony Ricks MD in OV> 05/28/25 1502 DD/ 1322 TD/TT: 05/28/25 1441 Checkroom Attendant: Procedure Note Donotuseinterpreter, Image - 05/28/[address] [place] [address] [address] Scan Report Signed Patient: Joan Armendariz RMR#: [id number] : 1945cct:[id number] Age/Sex: 80 / FADM Date: 05/28/25 Loc: .ED Attending Dr: Ordering Physician: Skyla Martinez MD Date of Service: 05/28/25 Procedure(s): CT gi bleed abd pel wo/w IVcon Accession Number(s): [id number] cc: Jeni Garcia MD; Skyla Martinez MD Report Number: [id number]: Total DLP = 1115.00 mGy-cm EXAMINATION: CT ABDOMEN PELVIS WITHOUT THEN WITH IV CONTRAST HISTORY: anemic, on Plavix, abd pain, black stool COMPARISON: Comparison is made with the prior examination dated 04/16/2024. TECHNIQUE: CT scan of the abdomen and pelvis was performed before and after the intravenous administration of 85 mL Omnipaque 350. Post contrast imaging was obtained in the arterial and delayed phases. Coronal and sagittal reformatted images were generated and reviewed. Oral contrast material was not administered per department protocol. This CT exam was performed with one or more of the following dose reduction techniques: automated exposure control, adjustment of the mA and/or kV according to patient size, use of iterative reconstruction technique. DLP: 1115 mGy-cm ABDOMEN: LOWER CHEST: The visualized lung bases are clear. There is no pleural effusion. CARDIOVASCULATURE: The heart is normal in size. There is no pericardial effusion. LIVER: The liver is normal in size and contour. No liver mass is identified. The hepatic and portal veins are patent. GALLBLADDER / BILE DUCTS: The gallbladder is surgically absent. There is no intra or extrahepatic biliary ductal dilatation. SPLEEN: The spleen is normal in size. No focal splenic lesion is identified. PANCREAS: The pancreas is unremarkable in appearance. ADRENAL GLANDS: Within normal limits. KIDNEYS/RETROPERITONEUM: No renal calculi are identified. There is no hydronephrosis. No renal masses are identified. LYMPH NODES: No abdominal or pelvic lymphadenopathy. VASCULATURE: There is diffuse atherosclerotic calcification of the abdominal aorta. A stent is seen in the origin of the superior mesenteric artery. There is calcification at the ostia of the bilateral renal arteries. There may be a stenosis on the right. MESENTERY/PERITONEUM: No free fluid. No masses. There is no free intraperitoneal gas. STOMACH: There is wall thickening of the distal esophagus. The stomach is collapsed. SMALL BOWEL: The small bowel is normal in caliber. No contrast extravasation is seen to suggest active GI bleeding. COLON: The colon is unremarkable. No contrast extravasation is seen to suggest active GI bleeding. APPENDIX: The appendix is not seen, however no inflammatory changes are seen adjacent to the cecum . URINARY BLADDER/PELVIC ORGANS: The urinary bladder is unremarkable. The patient is status post hysterectomy. BONES / SOFT TISSUES: The patient is status post kyphoplasty at T12. CT/CT gi bleed abd pel wo/w IVcon IMPRESSION: 1. No contrast extravasation is seen in the GI tract suggest active bleeding. 2. Wall thickening of the distal esophagus. Further evaluation with barium swallow or upper endoscopy is recommended. Electronically signed by: Bony Ricks MD 05/28/2025 03:02 PM EDT Dictated By: Bony Ricks MD Signed By: <Electronically signed by Bony Ricks MD in OV> 05/28/25 1502 DD/ 1322 TD/TT: 05/28/25 1441 Checkroom Attendant: [facility] External Provider IMG CT PROCEDURES Edited Result - Final * OBSX1 (05/28/2025 12:58 PM EDT) OBS1 POSITIVE NEGATIVE [facility] 05/28/2025 12:5 8 PM EDT 05/28/2025 1:00 PM EDT Generic External Data Provider LAB BLOOD ORDERAB LES Final Result [facility] [address] [place] [address] [phone] * (ABNORMAL) Urinalysis, Complete, with Reflex to Culture (05/28/2025 12:58 PM EDT) Color Urine Yellow [facility] Appearance Urine Clear [facility] PH 6.5 5.0 - 9.0 [facility] Glucose Urine UA Negative Negative mg/dL [facility] Urine Blood Negative Negative [facility] Specific [place] - Urine <=1.005 1.005 - 1.025 [facility] Urine Protein Negative Neg-Trace mg/dL [facility] Urine Ketones Negative Negative mg/dL [facility] Nitrite Urine Negative Negative [facility] Leukocyte Esterase Urine Trace(A) Negative [facility] RBC Urine 0-2 0 - 2 /HPF [facility] Urine WBC 0-5 0 - 5 /HPF [facility] Urine Squamous Epithelial Cell 0-2 0 - 2 /HPF [facility] Urine Bacteria None Seen None Seen [facility] Hyaline Casts, Urine 0-2 0 - 2 /LPF [facility] 05/28/2025 12:5 8 PM EDT 05/28/2025 1:00 PM EDT Narrative [facility] - 05/28/2025 1:08 PM EDT [id number], Clean Catch us Generic External Data Provider LAB URINE ORDERAB LES Final Result Performing Organization Address [facility] Co de Phone Number [facility] [address] [place] [phone] * High Sensitivity Troponin I (05/28/2025 12:13 PM EDT) [facility] TROPONIN I HIGH SENSITIVITY 2.7 <3.5 - 17.0 ng/L [facility] Comment:The [place] high sens itivity Troponin-I results should beused in conjunction with other diagnostic information suchas ECG, clinical observations and information, and patientsymptoms to aid in the diagnosis of SC. 05/28/2025 12:1 3 PM EDT 05/28/2025 12:16 PM EDT Generic External Data Provider LAB BLOOD ORDERAB LES Final Result Performing Organization Address [facility] [place] [facility] Co de Phone Number [facility] [address] [place] [phone] * (ABNORMAL) CBC auto differential (05/28/2025 12:13 PM EDT) [facility] White Blood Count 8.2 4.8 - 10.8 X10*3/uL [facility] Red Blood Count 3.55(L) 4.20 - 5.50 X10*6/uL [facility] Hemoglobin 8.7(L) 12.0 - 16.0 g/dl [facility] Hematocrit 28.3(L) 37.0 - 47.0 % [facility] Mean Corpuscular Volume 79.7(L) 80.0 - 98.0 fL [facility] Mean Corpuscular Hemoglobin 24.5(L) 27.0 - 33.0 pg [facility] Mean Corpuscular HGB Conc 30.7(L) 31.0 - 35.0 g/dl [facility] Red Cell Distribution Width 18.0(H) 11.0 - 16.0 % [facility] Platelet Count 203 160 - 400 X10*3/uL [facility] Mean Platelet Volume 11.8 9.4 - 12.3 fL [facility] Neutrophils Percent Auto 50.2 45 - 73 % [facility] Imm Gran Pct Auto 0.2 0.0 - 0.4 % [facility] Lymphocytes Percent Auto 23.6 20 - 40 % [facility] Monocytes Percent Auto 7.8 2 - 11 % [facility] Eosinophils Percent Auto 17.8(H) 0 - 4 % [facility] Basophils Percent Auto 0.4 0 - 2 % [facility] NRBC Pct Auto 0.0 0.0 - 0.2 /100WBC [facility] Neutrophils Absolute Auto 4.1 2.0 - 8.3 x10*3/uL [facility] Imm Gran Abs Auto 0.02 0.00 - 0.03 X10*3/uL [facility] Lymphocytes Absolute Auto 1.9 1.2 - 4.9 X10*3/uL [facility] Monocytes Absolute Auto 0.6 0.1 - 1.2 X10*3/uL [facility] Eosinophils Absolute Auto 1.5(H) 0.0 - 0.4 X10*3/uL [facility] Basophils Absolute Auto 0.0 0.0 - 0.2 X10*3/uL [facility] NRBC Abs Auto 0.000 0.0 - 0.012 X10*3/uL [facility] 05/28/2025 12:1 3 PM EDT 05/28/2025 12:16 PM EDT us Generic External Data Provider LAB BLOOD ORDERAB LES Final Result [facility] [address] [place] [phone] * (ABNORMAL) Partial Thromboplastin Time, Activated (APTT) (05/28/2025 12:13 PM EDT) Partial Thromboplastin Time 25.4(L) 26.7 - 34.1 SEC [facility] 05/28/2025 12:1 3 PM EDT 05/28/2025 12:16 PM EDT us Generic External Data Provider LAB BLOOD ORDERAB LES Final Result Performing Organization Address [facility] Co de Phone Number [facility] [address] [place] [phone] * Prothrombin Time-INR (05/28/2025 12:13 PM EDT) Prothrombin Time 12.2 10.9 - 12.4 SEC [facility] INTERNATIONAL NORM RATIO 1.1 0.9 - 1.1 [facility] Comment:INTERNATIONAL NORMAL IZED RATIO (INR) REFERENCE RANGES Reference RangeFor patients not on anticoagulant therapy: 0.9 - 1.1INR ranges for oral anticoagulanttherapy:For prevention and treatment of venous thrombosis and pulmonary embolism: 2.0 - 3.0For acute myocardial infarction with aspirin therapy: 2.0 - 3.0For acute myocardial infarction without aspirin therapy: 3.0 - 4.0For patients with mechanical prosthetic heart valves: 2.5 - 3.5 05/28/2025 12:1 3 PM EDT 05/28/2025 12:16 PM EDT us Generic External Data Provider LAB BLOOD ORDERAB LES Final Result Performing Organization Address [facility] Co de Phone Number [facility] [address] [place] [address] [phone] * (ABNORMAL) POCT hemoglobin docked device (05/28/2025 11:35 AM EDT) Hemoglobin 7.0(A) 12.0 - 15.0 Blood 05/28/2025 11:3 5 AM EDT us Rose Elizalde MD POINT OF CARE TEST EN TER/EDIT ORDERABLES Final Result * BI Mammogram Screening Tomosynthesis Bilateral (01/04/2024 12:30 PM EDT) Anatomical Region Laterality Modality Breast Bilateral Mammography 01/04/2024 12:3 0 PM EDT Narrative 01/25/2024 12:29 AM EDT [facility] [address] [place] [address] Mammography Report Signed Patient: Joan Armendariz MR#: [id number] : 1945 Acct:[id number] Age/Sex: 78 / F ADM Date: 01/04/24 Loc: HO.MAMMO Attending Dr: Jeni Garcia MD Ordering Physician: Jeni Garcia MD Results: 1Ne gative Date of Service: 01/04/24 Follow Up: 1 Year From Orig inal Mammogram Procedure(s): MM tomosynthesis screening BI Accession Number(s): [id number] cc: Jeni Garcia MD EXAMINATION: MM SCREENING [...] in OV> 01/25/24 0025 DD/ 1230 TD/TT: Checkroom Attendant: Procedure Note Donotuseinterpreter, Image - 01/25/2024 [facility] [address] [place] [address] [place] [address] Mammography Report Signed Patient: Joan Armendariz RMR#: [id number] : 3Acct:[id number] Age/Sex: 78 / FADM Date: 01/04/24 Loc: HO.MAMMO Attending Dr: Jeni Garcia MD Ordering Physician: Jeni Garcia MDResults: 1Ne gative Date of Service: 01/04/24Follow Up: 1 Year From Orig ina Mammogram Procedure(s): MM tomosynthesis screening BI Accession Number(s): [id number] cc: Jeni Garcia MD EXAMINATION: MM SCREENING [...] in OV> 01/25/24 0025 DD/ 1230 TD/TT: Checkroom Attendant: Jeni Garcia MD IMG BI PROCEDURES Final Result * Lipid Panel with Reflex to Direct LDL (02/15/2023 11:09 AM EDT) Cholesterol, Total 141 <200 mg/dL [email or web address] HDL Cholesterol 54 > OR = 50 mg/dL [email or web address] Triglycerides 99 <150 mg/dL [email or web address] LDL Cholesterol 69 mg/dL (calc) [email or web address] Comment: Reference range: <100 Desirable range <100 mg/dL for primary prevention; <70 mg/dL for patients with CHD or diabetic patients with > or = 2 CHD risk factors. LDL-C is now calculated using the Bebeto-Guajardo calculation, which is a validated novel method providing better accuracy than the Friedewald equation in the estimation of LDL-C. Bebeto SS et al. [place]. 2013;310(19): 8035-1886 (http://education.Master Route.ITelagen/faq/IUF072) Chol/HDLC Ratio 2.6 <5.0 (calc) [email or web address] [place] [facility] Non-HDL Cholesterol 87 <130 mg/dL (calc) [email or web address] Comment: For patients with diabetes plus 1 major ASCVD risk factor, treating to a non-HDL-C goal of <100 mg/dL (LDL-C of <70 mg/dL) is considered a therapeutic option. 02/15/2023 11:0 9 AM EDT 02/15/2023 11:10 AM EDT Narrative [facility] - 02/16/2023 2:24 AM EDT FASTING:NO FASTING: NO us Jeni Garcia MD LAB BLOOD ORDERABLES Fin al Result [facility] [address], [place] [address] [email or web address] [address] [place] [phone] from Last 3 Months or Most Recently Relevant to Health Maintenance Insurance [facility] DUAL COMPLETE [facility] STANDARD DENTAL - [facility] [address] [place] [address] [place] Care Teams Trolley Worker Relationship Specialty Start Date End Date Jeni Garcia MD [address] [place] [phone] PCP - General Family Medicine 12/16/15
--- OUTSIDE RECORDS SUMMARY | 2025-06-24 13:39 | XMS_ITS | Encounter Summary ---
Author Organization [employer] Address [address] [facility] 7[address] [place] [address] Care Team Providers Care Behavioral Geneticist Name Role Phone Jeni Garcia MD Primary Care Provider + Encounter Details Date Type Department Care Team (Latest Contact Info) Description 06/03/2025 Results Follow-Up [facility] [address] [place] [address] [phone] Jeni Garcia MD [address] [place], [place] [phone] CBC auto differential, Prothrombin Time-INR, Partial Thromboplastin Time, Activated (APTT), Additional followed-up results: 7 Social History Tobacco Use Types Packs/Day Years [...] Encounter Note - Jeni Garcia MD - 06/03/2025 12:56 PM EDT Labs on 05/28/2025 showed significant drop in hemoglobin, patient admitted with abdominal pain to [facility]. Will follow-up upon discharge documented in this encounter Plan of Treatment Upcoming Encounters Date Type Department Care Team (Late st Contact Info) Description 07/05/2025 11:45 AM EDT Office Visit [facility] [address] [place] [phone] Jeni Garcia MD [address] [place] [phone] 09/03/2025 11:45 AM EST Office Visit [facility] [address] [place] [address] [phone] Jeni Garcia MD [address] [place] [phone] documented as of this encounter Visit Diagnoses Not on filedocumented in this encounter Additional Health Concerns Assessment Noted Time PHQ-9 Depression Total Score: 9 07/03/20 25 11:57 AM EDT documented as of this encounter Care Teams Behavioral Geneticist Relationship Specialty Start Date End Date Jeni Garcia MD [address] [place] [phone] PCP - General Family Medicine 12/16/15 documented as of this encounter
--- OUTSIDE RECORDS SUMMARY | 2025-06-24 13:39 | XMS_ITS | Encounter Summary ---
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 10/05/2024 12:26 PM [facility] Clinical Information Heartburn,esophag eal reflux symptoms that persist despite appropriate therapy Finding:R/O oliver's 10/05/2024 12:26 PM [facility] Gross Description A. Esophagus, distal [...] levels on one slide. 10/05/2024 12:26 PM [facility] Disclaimer Unless otherwise specified, all tissue is 10% NB formalin fixed and paraffin embedded. 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
--- OUTSIDE RECORDS SUMMARY | 2025-06-24 13:40 | XMS_ITS | Encounter Summary ---
Author Organization [employer] Address [address] [place] [address] 7t [place] [address] Care Team Providers Care Barrow Worker Name Role Phone Jeni Garcia MD Primary Care Provider + Reason for Visit * Reason Onset Date Comments DR MAK 05/31/2025 Encounter Details Date Type Department Care Team ([facility] st Contact Info) Description 05/31/2025 Telephone [facility] [address] [place], [place] [phone] Carie Phelps, DDS [address] [place], [place] [phone] DR MAK Social History Tobacco Use Types Packs/Day Years [...] your housing situation today? I have dimitry angie 02/08/[address] you li [...] encounter Miscellaneous Notes * Telephone Encounter - Kandice Hoff - 05/31/2025 9:43 AM EDT Nurse called about medical clearance that was faxed over requesting if you can return the call to her at [phone] documented in this encounter Plan of Treatment Upcoming Encounters Date Type Department Care Team (Late st Contact Info) Description 07/05/2025 11:45 AM EDT Office Visit [facility] [address] [place] [phone] Jeni Garcia MD [address] [place] [phone] 09/03/2025 11:45 AM EST Office Visit [facility] [address] [place] [phone] Jeni Garcia MD [address] [place] [phone] documented as of this encounter Visit Diagnoses Not on filedocumented in this encounter Additional Health Concerns Assessment Noted Time PHQ-9 Depression Total Score: 9 04/18/20 11:57 AM EDT documented as of this encounter Care Teams Barrow Worker Relationship Specialty Start Date End Date Jeni Garcia MD [address] [place] [phone] PCP - General Family Medicine 12/16/15 documented as of this encounter
[2025-06-24 14:01] LABS: MANUAL DIFF FLAG NO
[2025-06-24 14:05] LABS: Hematocrit 28.3 % (37.0-47.0); Hemoglobin 8.5 g/dl (12.0-16.0); Imm Gran Abs Auto 0.02 X10*3/uL (0.00-0.03); Imm Gran Pct Auto 0.3 % (0.0-0.4); Lymphocytes Absolute Auto 1.6 X10*3/uL (1.2-4.9); Mean Corpuscular HGB Conc 30.0 g/dl (31.0-35.0); Mean Corpuscular Hemoglobin 24.3 pg (27.0-33.0); Mean Corpuscular Volume 80.9 fL (80.0-98.0); NRBC Abs Auto 0.000 X10*3/uL (0.0-0.012); NRBC Pct Auto 0.0 /100WBC (0.0-0.2); Platelet Count 263 X10*3/uL (160-400); Red Blood Count 3.50 X10*6/uL (4.20-5.50); White Blood Count 6.9 X10*3/uL (4.8-10.8)
== END 2025-06-24 11:08 | disposition home or self-care (01) ==
LOC: HO.HHCL 11:07
PROVIDERS: PCP Internal Medicine; Visit Provider Internal Medicine
DX: S20.211D Contusion of right front wall of thorax, subsequent encounter (principal); K55.1 Chronic vascular disorders of intestine; K21.9 Gastro-esophageal reflux disease without esophagitis; W19.XXXD Unspecified fall, subsequent encounter
CPT/HCPCS: 36415; 71046; 71100; 85025

== ENCOUNTER → 2025-06-24 11:50 | Outpatient (BNV) | payer OTHER, SELFPAY | PROVIDERS: PCP Internal Medicine; Visit Provider Radiology Diagnostic Radiology | DX: R07.81 Pleurodynia (principal); J84.9 Interstitial pulmonary disease, unspecified; I70.90 Unspecified atherosclerosis | CPT/HCPCS: 71046; 71100 ==

== ENCOUNTER 2025-07-03 12:17 | Outpatient (REF) | payer OTHER, SELFPAY ==
[2025-07-03 13:02] LABS: Hematocrit 24.8 % (37.0-47.0); Hemoglobin 7.6 g/dl (12.0-16.0); Mean Corpuscular HGB Conc 30.6 g/dl (31.0-35.0); Mean Corpuscular Hemoglobin 24.5 pg (27.0-33.0); Mean Corpuscular Volume 80.0 fL (80.0-98.0); NRBC Abs Auto 0.000 X10*3/uL (0.0-0.012); NRBC Pct Auto 0.0 /100WBC (0.0-0.2); Platelet Count 238 X10*3/uL (160-400); Red Blood Count 3.10 X10*6/uL (4.20-5.50); White Blood Count 7.0 X10*3/uL (4.8-10.8)
[2025-07-03 13:45] LABS: Iron 45 mcg/dL (30-160); Percent Iron Saturation 13 % (15-50); Total Iron Binding Capacity 344 mcg/dL (228-428); Unsaturated Iron Binding 299 ug/dL
[2025-07-03 13:51] LABS: Ferritin 23 ng/mL (10-250)
--- OUTSIDE RECORDS SUMMARY | 2025-07-03 15:44 | XMS_ITS | Encounter Summary ---
Author Organization [employer] Address [address] [facility] [address] [place] [address] Care Team Providers Care Home Health Nurse Licensed Practical Name Role Phone Jeni Garcia MD Primary Care Provider + Reason for Visit * Reason Comments Med Refill Encounter Details Date Type Department Care Team (Late st Contact Info) Description 03/04/[address] [facility] [address] [place], [place] [phone] Jeni Garcia MD [address] [place], [place] [phone] Social History Tobacco Use Types Packs/Day Years [...] Team (Late st Contact Info) Description 07/05/2025 2:00 PM EDT Medication Management [facility] [address] [place] [phone] Margarita Baumann PharmD [address] [place] [phone] 09/03/2025 11:45 AM EST Office Visit [facility] [address] [place] [phone] Jeni Garcia MD [address] [place] [phone] documented as of this encounter Visit Diagnoses Not on filedocumented in this encounter Additional Health Concerns Assessment Noted Time PHQ-9 Depression Total Score: 0 11/16/19 23 10:53 AM EST documented as of this encounter Care Teams Home Health Nurse Licensed Practical Relationship Specialty Start Date End Date Jeni Garcia MD [address] [place] [phone] PCP - General Family Medicine 12/16/15 documented as of this encounter
--- OUTSIDE RECORDS SUMMARY | 2025-07-03 15:44 | XMS_ITS | Encounter Summary ---
Author Organization [employer] Address [address] [place] [address] 7t [place] [address] Care Team Providers Care Hourly Shift Name Role Phone Jeni Garcia MD Primary Care Provider + Encounter Details Date Type Department Care Team (Late Contact Info) Description 02/25/2023 Orders Only [facility] [address] [place] [address] [phone] Jeni Garcia MD [address] [place] [address] [phone] Obstructive sleep apnea syndrome (Primary Dx) Social [...] Care Team (Late Contact Info) Description 07/05/2025 2:00 PM EDT Medication Management [facility] [address] [place] [phone] Margarita Baumann, XinD [address] [place] [address] 09/03/2025 11:45 AM EST Office Visit [facility] [address] [place] [phone] Jeni Garcia MD [address] [place] [phone] documented as of this encounter Visit Diagnoses Diagnosis Obstructive sleep apnea syndrome- Primary Obstructive sleep apnea (adult) (pediatric) documented in this encounter Additional Health Concerns Assessment Noted Time PHQ-9 Depression Total Score: 0 11/16/19 23 10:53 AM EST documented as of this encounter Care Teams Hourly Shift Relationship Specialty Start Date End Date Jeni Garcia MD [address] [place] [phone] PCP - General Family Medicine 12/16/15 documented as of this encounter
--- OUTSIDE RECORDS SUMMARY | 2025-07-03 15:44 | XMS_ITS | Encounter Summary ---
Author Organization [employer] Address [address] [place] [address] [address] [place] [address] Care Team Providers Care Endoscopy Tech Name Role Phone Jeni Garcia MD Primary Care Provider + Reason for Visit * Reason Onset Date Comments C pap request 01/26/2023 Encounter Details Date Type Department Care Team ([facility] st Contact Info) Description 01/26/2023 Telephone [facility] [address] [place], [place] [phone] Jeni Garcia MD [address] [place], [place] [phone] C pap request Social History Tobacco Use [...] on CPAP machine. Please contact pt at [phone] (Turkmen speaker) * Telephone Encounter - Aleshia Stark [...] Description 07/05/2025 2:00 PM EDT Medication Management [facility] [address] [place] [phone] Margarita Baumann, PharmD [address] [place] [address] 09/03/2025 11:45 AM EST Office Visit [facility] [address] [place] [phone] Jeni Garcia MD [address] [place] [phone] documented as of this encounter Visit Diagnoses Not on filedocumented in this encounter Additional Health Concerns Assessment Noted Time PHQ-9 Depression Total Score: 0 11/16/19 23 10:53 AM EST documented as of this encounter Care Teams Endoscopy Tech Relationship Specialty Start Date End Date Jeni Garcia MD [address] [place] [phone] PCP - General Family Medicine 12/16/15 documented as of this encounter
--- OUTSIDE RECORDS SUMMARY | 2025-07-03 15:44 | XMS_ITS | Clinical Summary ---
Author Organization [employer] Address [address] [facility] [address] [place] [address] Care Team Providers Care Textile Colorist Dyer Name Role Phone Jeni Garcia MD Primary [...] EVERY DAY IN THE MORNING 90 tablet Active carvedilol (Coreg) 6.25 MG tabletIndications :Primary [...] tablet by mouth Once per day. Active aspirin 81 MG EC tablet Take 81 mg by mouth Once per day. Active atorvastatin (Lipitor) 40 MG tablet Take 40 mg by mouth Once per day. Active senna-docusate sodium (Senokot-S) 8.6-50 MG tablet Take 1 tablet by mouth Once per day. 30 tablet 025 2025 Active Diclofenac Sodium 1 % gel Apply 1 inch topically if needed in the morning and at bedtime (pain). 60 g 025 2024 Active budesonide-formot uriah (Symbicort) 160-4.5 MCG/ACT inhaler Inhale 2 puffs in the morning and at bedtime. 1 each 025 2025 Active Stye 0.5-0.6 % solution ADMINISTER 2 DROPS INTO AFFECTED EYE(S) IF NEEDED IN THE MORNING, AT NOON, AND AT BEDTIME (DRY EYE/IRRITATION) . 15 mL 3 Active Spiriva Respimat [...] day (constipation). 450 mL 1 025 2024 lidocaine (Lidoderm) 5 % patch Apply topically. 023 2024 Advair HFA 115-21 MCG/ACT inhaler Inhale 2 puffs in the morning and at bedtime. Rinse mouth with water after use to reduce aftertaste and incidence of candidiasis. Do not swallow. 12 g 11 2024 Discontinued Polyvinyl Alcohol-Povidone 5-6 MG/ML solution Administer 2 drops into affected eye(s) if needed in the morning, at noon, and at bedtime (dry eye/irritation) . 15 mL 3 025 2024 Discontinued Stye 0.5-0.6 % solution ADMINISTER 2 DROPS INTO AFFECTED EYE(S) IF NEEDED IN THE MORNING, AT NOON, AND AT BEDTIME (DRY EYE/IRRITATION) . 15 mL 3 025 2024 Discontinued Stye 0.5-0.6 % solution ADMINISTER 2 DROPS INTO AFFECTED EYE(S) IF NEEDED IN THE MORNING, AT NOON, AND AT BEDTIME (DRY EYE/IRRITATION) . 15 mL 3 025 2024 Discontinued Active Problems Problem Noted Date Diagnosed Date Meningioma 06/24/2025 Assessment & Plan (06/24/2025 6:18 PM EDT): Patient is asymptomatic, she has follow-up with neurosurgery Chest wall contusion, right, subsequent encounte r 06/24/2025 Assessment & Plan (06/24/2025 6:19 PM EDT): Patient with significant right-sided chest pain, rule out rib fracture Order x-rays Continue lidocaine patch + diclofenac gel. Patient is allergic to opiates Upper GI bleeding 05/28/2025 Assessment & Plan (05/28/2025 11:33 AM EDT): [place] [facility], patient went through EMS Hematoma of groin 04/18/2025 Assessment & Plan (04/18/2025 3:27 PM EDT): On catheterization site. 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 01/03/2025 Assessment & Plan (06/24/2025 6:15 PM EDT): Is chest pain-free and recently seen by cardiology, she's back on plavix + ASA Assessment & [...] mesenteric artery stenosis 06/13/2024 Assessment & Plan (06/24/2025 6:17 PM EDT): Status post stent placement , most recent colonoscopy within normal limits, follow-up with GI and vascular surgery Continue Plavix and aspirin Discussed with patient regarding tight control of risk factors including hypertension and hyperlipidemia Assessment & Plan (04/23/2025 2:03 PM EDT): [...] Venous insufficiency of leg 10/19/2022 Prediabetes 09/17/2021 Assessment & Plan (06/24/2025 6:16 PM EDT): Resolved, patient has lost some weight Continue dietary modifications and follow-up every 6 months Primary osteoarthritis of both knees 02/16/2019 Assessment [...] pulmonary disease 12/11/2012 Assessment & Plan (06/24/2025 6:19 PM EDT): Restart Advair bid Use albuterol as needed + incentive spirometer Assessment & Plan (04/23/2025 2:05 PM EDT): She is doing well, refill on Advair and albuterol. See previous note Assessment & Plan (01/23/2025 8:26 PM EDT): Doing well on Advair, Singulair and albuterol as needed Follow-up with junior technical writer Assessment & Plan (01/03/2025 1:36 PM EDT): [...] (gastroesophageal reflux disease) 2 Assessment & Plan (06/24/2025 6:18 PM EDT): Patient symptoms are likely related to GERD exacerbation Continue Pepcid and follow-up with GI in 2 weeks Will try to hold on iron tablets as they may be exacerbating GERD sxs, will consider IV iron Order CBC and Hemoccult Assessment & Plan (04/23/2025 2:04 PM EDT): [...] rest at home. FU on Tuesday with [facility] Compliance. Will call tomorrow for health status check. [...] exercise, life style modifications, diet, referral to patient financial specialist. Discussed re lower calorie intake, increase [...] Encounters Date Type Department Care Team Description 06/26/2025 Refill [facility] [address] [place] [phone] Jeni Garcia MD 06/25/2025 Refill [facility] [address] [place] [address] Jeni Garcia MD 06/25/2025 Refill [facility] [address] [place] [address] Jeni Garcia MD 06/24/2025 10:00 AM EDT Office Visit [facility] [address] [place] [address] Jeni Garcia MD Chest wall contusion, right, subsequent encounter (Primary Dx); Gastroesophageal reflux disease, unspecified whether esophagitis present; Meningioma ([facility]); Prediabetes; 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 ([facility]); Chronic obstructive pulmonary disease, unspecified COPD type ([facility]); Superior mesenteric artery stenosis ([facility]/HCC) 06/24/2025 Results Follow-Up [facility] [address] [place] [address] Jeni Garcia MD POCT Hgb A1c, POCT Glucose, CBC auto differential, Additional followed-up results: 2 06/24/2025 Refill [facility] [address] [place] [address] Jeni Garcia MD 06/24/2025 Travel 06/21/2025 Telephone [facility] [address] [place] [address], [place] [address] Jeni Garcia MD Chart Prep 06/20/2025 Orders Only [address] [place] [address] Jeni Garcia MD Hypertension (Primary Dx) 06/18/[address] [address] Jeni Garcia MD ER Follow-up 06/13/2025 Refill [facility] [address] [place] [address], [place] [address] Jeni Garcia MD 06/12/[address] [place] [address] Jeni Garcia MD Primary hypertension 06/05/2025 Orders Only [facility] External Provider, [facility] 06/03/2025 Results Follow-Up [address] [address] Jeni Garcia MD CBC auto differential, Prothrombin Time-INR, Partial Thromboplastin Time, Activated (APTT), Additional followed-up results: 7 05/31/2025 Patient Outreach [address] [address] Jeni Garcia MD Transition Of Care (Tcm) (HDF- scheduled and SDOH screening was completed on 02/08/2025) 05/31/2025 Telephone [facility] [address] [place] [phone] ACOSTA 05/28/2025 11:20 AM EDT Office Visit [facility] [address] [place] [phone] Rose De La Rosa MD Upper GI bleeding (Primary Dx) 05/28/2025 10:00 AM EDT Office Visit [facility] [address] [place] [phone] Keerthi Matute 05/28/2025 Orders Only GENERIC EXTERNAL DATA DEPARTMENT Provider, Generic External Data 05/28/2025 Telephone [facility] [address] [place] [address] Carie Phelps DDS 05/28/2025 Travel 05/12/2025 Refill [facility] [address] [place] [address] Jeni Garcia MD 05/09/2025 Orders Only [facility] External Provider, [facility] 04/28/2025 Refill [facility] [address] [place] [address] Jeni Garcia MD Acquired hypothyroidism; Gastroesophageal reflux disease, unspecified whether esophagitis present 04/18/2025 12:00 PM EDT Office Visit [facility] [address] [place] [phone] Jeni Garcia MD 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); Gastroesophageal reflux disease, unspecified whether esophagitis present; Hematoma of groin, subsequent encounter; 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 ([facility]/HCC); Rheumatoid arthritis involving multiple sites with positive rheumatoid factor ([facility]); Stage 3a chronic kidney disease ([facility]/HCC); Dietary counseling; Exercise counseling; Class 1 obesity due to excess calories with serious comorbidity and body mass index (BMI) of 33.0 to 33.9 in adult 04/18/2025 Travel 04/17/2025 Telephone [facility] [address] [place] [phone] Jeni Garcia MD Chart Prep 04/10/2025 Travel 04/10/[address] [address] Jeni Garcia MD Appointment Request 04/05/[address] [phone] Jeni Garcia MD Call Back Request from [...] Description 07/05/2025 2:00 PM EDT Medication Management [facility] [address] [place] [phone] Margarita Baumann, PharmD [address] [place] [address] 09/03/2025 11:45 AM EST Office Visit [facility] [address] [place] [phone] Jeni Garcia MD [address] [place] [address] Health Maintenance Due Date Last Done Comments Zoster Vaccines (1 of 2) 03/19/2015 01/22/2015 RSV Patients and Patients Aged 60 years or older (1 - 1-dose 75+ series) 2018 Mammogram 01/03/2025 01/04/2024, 12/15, 12/29/2022, Additional history exists Dental Oral Exam 05/14/2025 11/13/2024, 05/2024, 11/11/2022 Dental Prophylaxis 05/14/2025 11/13/2024, 0 05/24/2024, 11/11/2022 Dental X-Ray: Bitewings 05/25/2025 05/24/2024, 11/11 COVID-19 Vaccine ( season) 2025 09/23/2021, 12/30/2020, [...] EDT Chest wall contusion, right, subsequent encounter CBC WITH AUTO DIFFERENTIAL Routine 06/24/2025 11:13 AM EDT Superior mesenteric artery stenosis (CMS/HCC) Gastroesophageal reflux disease, unspecified whether esophagitis present POCT GLUCOSE Routine 06/24/2025 10:21 AM EDT 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 (CMS/HCC) POCT GLYCATED HEMOGLOBIN, TOTAL Routine 06/24/2025 10:20 AM EDT 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 (CMS/HCC) XR [...] 6 PM EDT Narrative 06/24/2025 12:[address] [address] XRay Report Signed Patient: Joan Armendariz MR#: [id number] : 1945 Acct:[id number] Age/Sex: 80 / F ADM Date: 06/24/25 Loc: [facility] Attending Dr: Jeni Garcia MD Ordering Physician: Jeni Garcia MD Date of Service: 06/24/25 Procedure(s): XR ribs RT 2V Accession Number(s): [id number] cc: Jeni Garcia MD Reason for Exam: [...] 06/24/25 1223 DD/ 1206 TD/TT: 06/24/25 1206 Fountain Clerk: Procedure Note Donotuseinterpreter, Image - 06/24/[address] [address] XRay Report Signed Patient: Joan Armendariz RMR#: [id number] : 1945cct:[id number] Age/Sex: 80 / FADM Date: 06/24/25 Loc: [facility] Attending Dr: Jeni Garcia MD Ordering Physician: Jeni Garcia MD Date of Service: 06/24/25 Procedure(s): XR ribs RT 2V Accession Number(s): [id number] cc: Jeni Garcia MD Reason for Exam: [...] 06/24/25 1223 DD/ 1206 TD/TT: 06/24/25 1206 Fountain Clerk: Jeni Garcia MD IMG XR PROCEDURES Edited Result - Final * XR Chest 2 Views (06/24/2025 12:06 PM EDT) Only the most recent of3 resultswithin the time period is included. Anatomical Region Laterality Modality Chest Radiographic Tamiko ging 06/24/2025 12:0 6 PM EDT Narrative 06/24/2025 12:24 PM EDT [address] [address] XRay Report Signed Patient: Joan Armendariz MR#: [id number] : 1945 Acct:[id number] Age/Sex: 80 / F ADM Date: 06/24/25 Loc: [facility] Attending Dr: Jeni Garcia MD Ordering Physician: Jeni Garcia MD Date of Service: 06/24/25 Procedure(s): XR chest 2V Accession Number(s): [id number] cc: Jeni Garcia MD Reason for Exam: [...] 06/24/25 1221 DD/ 1206 TD/TT: 06/24/25 1206 Fountain Clerk: Procedure Note Donotuseinterpreter, Image - 06/24/[address] [address] XRay Report Signed Patient: Joan Armendariz RMR#: [id number] : 1945cct:[id number] Age/Sex: 80 / FADM Date: 06/24/25 Loc: [facility] Attending Dr: Jeni Garcia MD Ordering Physician: Jeni Garcia MD Date of Service: 06/24/25 Procedure(s): XR chest 2V Accession Number(s): [id number] cc: Jeni Garcia MD Reason for Exam: [...] 06/24/25 1221 DD/ 1206 TD/TT: 06/24/25 1206 Fountain Clerk: us Jeni Garcia MD IMG XR PROCEDURES Edited Result - Final * (ABNORMAL) CBC auto differential (06/24/2025 11:13 AM EDT) Only the most recent of2 resultswithin the time period is included. White Blood Count 6.9 4.8 - 10.8 X10*3/uL [facility] Red Blood Count 3.50(L) 4.20 - 5.50 X10*6/uL [facility] Hemoglobin 8.5(L) 12.0 - 16.0 g/dl [facility] Hematocrit 28.3(L) 37.0 - 47.0 % [facility] Mean Corpuscular Volume 80.9 80.0 - 98.0 fL [facility] Mean Corpuscular Hemoglobin 24.3(L) 27.0 - 33.0 pg [facility] Mean Corpuscular HGB Conc 30.0(L) 31.0 - 35.0 g/dl [facility] Red Cell Distribution Width 21.3(H) 11.0 - 16.0 % [facility] Platelet Count 263 160 - 400 X10*3/uL [facility] Mean Platelet Volume 11.4 9.4 - 12.3 fL [facility] Neutrophils Percent Auto 54.8 45 - 73 % [facility] Imm Gran Pct Auto 0.3 0.0 - 0.4 % [facility] Lymphocytes Percent Auto 22.7 20 - 40 % [facility] Monocytes Percent Auto 10.9 2 - 11 % [facility] Eosinophils Percent Auto 10.3(H) 0 - 4 % [facility] Basophils Percent Auto 1.0 0 - 2 % [facility] NRBC Pct Auto 0.0 0.0 - 0.2 /100WBC [facility] Neutrophils Absolute Auto 3.8 2.0 - 8.3 x10*3/uL [facility] Imm Gran Abs Auto 0.02 0.00 - 0.03 X10*3/uL [facility] Lymphocytes Absolute Auto 1.6 1.2 - 4.9 X10*3/uL [facility] Monocytes Absolute Auto 0.8 0.1 - 1.2 X10*3/uL [facility] Eosinophils Absolute Auto 0.7(H) 0.0 - 0.4 X10*3/uL [facility] Basophils Absolute Auto 0.1 0.0 - 0.2 X10*3/uL [facility] NRBC Abs Auto 0.000 0.0 - 0.012 X10*3/uL [facility] Blood Venous blood specimen / Unknown 06/24/2025 11:13 AM EDT 06/24/2025 1:56 PM EDT us Jeni Garcia MD LAB BLOOD ORDERABLES Fin al Result [facility] [address] [place] [address] [phone] * POCT Glucose (06/24/2025 10:21 AM EDT) [...] Result * Magnesium (05/28/2025 1:24 PM EDT) Pathologist [facility] Magnesium 2.4 1.6 - 2.6 mg/dL [facility] 05/28/2025 1:24 PM EDT 05/28/2025 1:27 PM EDT us Generic External Data Provider LAB BLOOD ORDERAB LES Final Result [facility] [address] [place] [address] [phone] * Lipase (05/28/2025 1:24 PM EDT) Lipase 29 8 - 78 U/L [facility] 05/28/2025 1:24 PM EDT 05/28/2025 1:27 PM EDT us Generic External Data Provider LAB BLOOD ORDERAB LES Final Result Performing Organization Address City/[facility]/ZIP Co de Phone Number [facility] [address] [place] [phone] * Hepatic Function Panel (05/28/2025 1:24 PM EDT) Bilirubin, Direct 0.2 0.0 - 0.5 mg/dL [facility] 05/28/2025 1:24 PM EDT 05/28/2025 1:27 PM EDT Generic External Data Provider LAB BLOOD ORDERAB LES Final Result Performing Organization Address [facility] Co de Phone Number [facility] [address] [place] [address] [phone] * (ABNORMAL) Comprehensive Metabolic Panel (05/28/2025 1:24 PM EDT) Pathologist [facility] Sodium 143 135 - 145 mmol/L LONG [...] Kidney Disea se: Estimated GFR < 60 mL/min/1.57q9Lbwohb Kidney Disease: Estimated GFR < 15 mL/min/1.73m2 [...] ORDERAB LES Final Result Performing Organization Address City/State/[facility] de Phone Number [facility] [address] [place] [phone] * CT ABD/PELVIS W/O + W/ IV CONTRAST (05/28/2025 1:22 PM EDT) Anatomical Region Laterality Modality Body, Pelvis, Abdomen Computed T omography 05/28/2025 1:22 PM EDT Narrative 05/28/2025 3:04 PM EDT [place] [address] [address] Scan Report Signed Patient: Joan Armendariz MR#: [id number] : 1945 Acct:[id number] Age/Sex: 80 / F ADM Date: 05/28/25 Loc: HO.ED Attending Dr: Ordering Physician: Skyla Martinez MD Date of Service: 05/28/25 Procedure(s): CT gi bleed abd pel wo/w IVcon Accession Number(s): [id number] cc: Jeni Garcia MD; Skyla Martinez MD Report Number: [id number]: Total DLP = 1115.00 mGy-cm EXAMINATION: CT [...] 05/28/25 1502 DD/ 1322 TD/TT: 05/28/25 1441 Fountain Clerk: Procedure Note Donotuseinterpreter, Image - 05/28/[address] [place] [address] [address] Scan Report Signed Patient: Joan Armendariz RMR#: [id number] : 1945cct:[id number] Age/Sex: 80 / FADM Date: 05/28/25 Loc: .ED Attending Dr: Ordering Physician: Skyla Martinez MD Date of Service: 05/28/25 Procedure(s): CT gi bleed abd pel wo/w IVcon Accession Number(s): [id number] cc: Jeni Garcia MD; Skyla Martinez MD Report Number: [id number]: Total DLP = 1115.00 mGy-cm EXAMINATION: CT [...] 05/28/25 1502 DD/ 1322 TD/TT: 05/28/25 1441 Fountain Clerk: [facility] External Provider IMG CT PROCEDURES Edited Result - Final * OBSX1 (05/28/2025 12:58 PM EDT) OBS1 POSITIVE NEGATIVE [facility] 05/28/2025 12:5 8 PM EDT 05/28/2025 1:00 PM EDT us Generic External Data Provider LAB BLOOD ORDERAB LES Final Result [facility] [address] [place] [address] [phone] * (ABNORMAL) Urinalysis, Complete, with Reflex to Culture (05/28/2025 12:58 PM EDT) Color Urine Yellow [facility] Appearance Urine Clear [facility] PH 6.5 5.0 - 9.0 [facility] Glucose Urine UA Negative Negative mg/dL [facility] Urine Blood Negative Negative [facility] Specific Theresa - Urine <=1.005 1.005 - 1.025 [facility] Urine Protein Negative Neg-Trace mg/dL [facility] Urine Ketones Negative Negative mg/dL [facility] Nitrite Urine Negative Negative [facility] Leukocyte Esterase Urine Trace(A) Negative [facility] RBC Urine 0-2 0 - 2 /HPF [facility] Urine WBC 0-5 0 - 5 /HPF [facility] Urine Squamous Epithelial Cell 0-2 0 - 2 /HPF [facility] Urine Bacteria None Seen None Seen [facility] Hyaline Casts, Urine 0-2 0 - 2 /LPF [facility] 05/28/2025 12:5 8 PM EDT 05/28/2025 1:00 PM EDT Narrative [facility] - 05/28/2025 1:08 PM EDT [id number], Clean Catch us Generic External Data Provider LAB URINE ORDERAB LES Final Result [facility] [address] [place] [address] [phone] * High Sensitivity Troponin I (05/28/2025 12:13 PM EDT) TROPONIN I HIGH SENSITIVITY 2.7 <3.5 - 17.0 ng/L [facility] Comment:The [place] high sens itivity Troponin-I results should beused in conjunction with other diagnostic information suchas ECG, clinical observations and information, and patientsymptoms to aid in the diagnosis of UT. 05/28/2025 12:1 3 PM EDT 05/28/2025 12:16 PM EDT Generic External Data Provider LAB BLOOD ORDERAB LES Final Result Performing Organization Address [facility] Co de Phone Number [facility] [address] [place] [phone] * (ABNORMAL) Partial Thromboplastin Time, Activated (APTT) (05/28/2025 12:13 PM EDT) Partial Thromboplastin Time 25.4(L) 26.7 - 34.1 SEC [facility] 05/28/2025 12:1 3 PM EDT 05/28/2025 12:16 PM EDT Generic External Data Provider LAB BLOOD ORDERAB LES Final Result Performing Organization Address [facility] Co de Phone Number [facility] [address] [place] [phone] * Prothrombin Time-INR (05/28/2025 12:13 PM [...] Final Result [facility] [address] [place] [address] [phone] * (ABNORMAL) POCT hemoglobin docked device (05/28/2025 11:35 AM EDT) Hemoglobin 7.0(A) 12.0 - 15.0 Blood 05/28/2025 11:3 5 AM EDT us Rose Elizalde MD POINT OF CARE TEST EN TER/EDIT ORDERABLES Final Result * BI Mammogram Screening Tomosynthesis Bilateral (01/04/2024 12:30 PM EDT) Anatomical Region Laterality Modality Breast Bilateral Mammography 01/04/2024 12:3 0 PM EDT Narrative 01/25/2024 12:29 AM EDT [facility] [address] [place] [address] Mammography Report Signed Patient: Joan Armendariz MR#: [id number] : 1945 Acct:[id number] Age/Sex: 78 / F ADM Date: 01/04/24 Loc: MAMMO Attending Dr: Jeni Garcia MD Ordering Physician: Jeni Garcia MD Results: 1Ne gative Date of Service: 01/04/24 Follow Up: 1 Year From Orig inal Mammogram Procedure(s): MM tomosynthesis screening BI Accession Number(s): [id number] cc: Jeni Garcia MD EXAMINATION: MM SCREENING [...] in OV> 01/25/24 0025 DD/ 1230 TD/TT: Fountain Clerk: Procedure Note Donotuseinterpreter, Image - 01/25/2024 [facility] [address] [place] [address] Mammography Report Signed Patient: Joan Armendariz RMR#: [id number] : 3Acct:[id number] Age/Sex: 78 / FADM Date: 01/04/24 Loc: [facility] Attending Dr: Jeni Garcia MD Ordering Physician: Jeni Garcia MDResults: 1Ne gative Date of Service: 01/04/24Follow Up: 1 Year From Orig ina Mammogram Procedure(s): MM tomosynthesis screening BI Accession Number(s): [id number] cc: Jeni Garcia MD EXAMINATION: MM SCREENING [...] in OV> 01/25/24 0025 DD/ 1230 TD/TT: Fountain Clerk: Jeni Garcia MD IMG BI PROCEDURES Final Result * Lipid Panel with Reflex to Direct LDL (02/15/2023 11:09 AM EDT) Cholesterol, Total 141 <200 mg/dL [facility] HDL Cholesterol 54 > OR = 50 mg/dL [facility] Triglycerides 99 <150 mg/dL [facility] LDL Cholesterol 69 mg/dL (calc) [facility] Comment: Reference range: <100 Desirable range <100 mg/dL for primary prevention; <70 mg/dL for patients with CHD or diabetic patients with > or = 2 CHD risk factors. LDL-C is now calculated using the Bebeto-Casandra calculation, which is a validated novel method providing better accuracy than the Friedewald equation in the estimation of LDL-C. Bebeto SS et al. [place]. 2013;310(19): 6288-3997 (http://education.Choisr/faq/VPF985) Chol/HDLC Ratio 2.6 <5.0 (calc) [facility] Non-HDL Cholesterol 87 <130 mg/dL (calc) [facility] Comment: For patients with diabetes plus 1 major ASCVD risk factor, treating to a non-HDL-C goal of <100 mg/dL (LDL-C of <70 mg/dL) is considered a therapeutic option. 02/15/2023 11:0 9 AM EDT 02/15/2023 11:10 AM EDT Narrative [facility] - 02/16/2023 2:24 AM EDT FASTING:NO FASTING: NO Jeni Garcia MD LAB BLOOD ORDERABLES Fin al Result [facility] [address], [place] [address] [facility] [address] [place] [phone] from Last 3 Months or Most Recently Relevant to Health Maintenance [place] [address] [facility] DUAL COMPLETE [facility] ST[facility] - [facility] Care Teams Textile Colorist Dyer Relationship Specialty Start Date End Date Jeni Garcia MD [address] [place] [phone] PCP - General Family Medicine 12/16/15
--- OUTSIDE RECORDS SUMMARY | 2025-07-03 15:44 | XMS_ITS | Encounter Summary ---
Author Organization [employer] Address [address] [facility] 7t [place] [address] Care Team Providers Care Foot Caster Name Role Phone Jeni Garcia MD Primary Care Provider + Reason for Visit * Reason Comments Med Change Request Encounter Details Date Type Department Care Team ([facility] st Contact Info) Description 06/25/[address] [facility] MED[facility]INE [address] [place], [place] [phone] Jeni Garcia MD [address] [place], [place] [phone] Social History Tobacco Use Types Packs/Day Years [...] encounter Miscellaneous Notes * Telephone Encounter - Jeni Garcia MD - 07/03/2025 2:56 PM EDT Re natural tears, yes, please call patient and let her know to buy OTC drops * Telephone Encounter - Yvonne Robles RN - 06/27/2025 2:45 PM EDT TC placed to [facility] pharmacy [phone] who reports they received their delivery today and the stye solution was NOT in their delivery. [facility] pharmacy reports the medication is currently on back order along with the previous RX for artifical tears. [facility] pharmacy reports there are no other eye drops which would be covered by the patients insurance they recommend the patient purchase and OTC lubricant eye drops. Please review and advise if agreeable to this POC. Of note, I did call [facility] to inquire if they had either in stock and was informed they do not either. * Telephone Encounter - Yvonne Robles RN - 06/27/2025 9:44 AM EDT TC placed to [facility] pharmacy [phone] in regards to below message. [facility] reports they have not received their order in for the day as of yet. [facility] pharmacy recommended RN return call around 2pm to inquire if medication came in. RN will return call to [facility] pharmacy this PM. * Telephone Encounter - Yvonne Robles RN - 06/26/2025 4:02 PM EDT TC placed to [facility] pharmacy [phone] to inquire if style solution is available. RN was informed they do not currently have any in stock today however they can order it for delivery tomorrow. RN will return call to [facility] pharmacy tomorrow to inquire if RX is available. * Telephone Encounter - Jeni Garcia MD - 06/26/2025 3:31 PM EDT I sent rx Stye solution to replace natural tears. Please check with pharmacy that this medication is available, otherwise to the cover medication to me or the covering provider after tonight documented in this encounter Plan of Treatment Upcoming Encounters Date Type Department Care Team (Late st Contact Info) Description 07/05/2025 2:00 PM EDT Medication Management [facility] MED[facility] [address] [place] [phone] Margarita Baumann, PharmD [address] [place] [address] 09/03/2025 11:45 AM EST Office Visit [facility] [address] [place] [address] Jeni Garcia MD [address] [place] [address] documented as of this encounter Visit Diagnoses Not on filedocumented in this encounter Additional Health Concerns Assessment Noted Time PHQ-9 Depression Total Score: 9 04/18/20 11:57 AM EDT documented as of this encounter Care Teams Foot Caster Relationship Specialty Start Date End Date Jeni Garcia MD [address] [place] [address] PCP - General Family Medicine 12/16/15 documented as of this encounter
--- OUTSIDE RECORDS SUMMARY | 2025-07-03 15:44 | XMS_ITS | Encounter Summary ---
Author Organization [employer] Address [address] [place] [address] 7t [place] [address] Care Team Providers Care Soup Person Name Role Phone Jeni Garcia MD Primary Care Provider + Reason for Visit * Reason Onset Date Comments C Pap 02/22/2023 Encounter Details Date Type Department Care Team ([facility] st Contact Info) Description 02/22/[address] [facility] [address] [place], [place] [phone] Jeni Garcia MD 230 [place], [place] [phone] C Pap Social History Tobacco Use Types [...] If any questions please contact pt at [phone] (japanese speaking) * Telephone Encounter - Temi Bojorquez - 02/22/2023 2:44 PM EDT Tc from Pt requesting a script for Cpap Machine talk on appt on 02/15 with provider. Pt give fax number to send script to [facility] # [phone]. PCP Dr. Garcia documented in this encounter Plan of Treatment Upcoming Encounters Date Type Department Care Team (Late st Contact Info) Description 07/05/2025 2:00 PM EDT Medication Management [facility] [address] [place] [phone] Margarita Baumann, PharmD [address] [place] [address] 09/03/2025 11:45 AM EST Office Visit [facility] [address] [place] [address] Jeni Garcia MD [address] [place] [address] documented as of this encounter Visit Diagnoses Not on filedocumented in this encounter Additional Health Concerns Assessment Noted Time PHQ-9 Depression Total Score: 0 11/16/19 10:53 AM EST documented as of this encounter Care Teams Soup Person Relationship Specialty Start Date End Date Jeni Garcia MD [address] [place] [address] PCP - General Family Medicine 12/16/15 documented as of this encounter
--- OUTSIDE RECORDS SUMMARY | 2025-07-03 15:44 | XMS_ITS | Encounter Summary ---
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) Jeni Garcia MD 230 [place] [address] Phone: tel: fax: [facility] [address] [facility] [address] [place] [address] Phone: tel: fax: Referral ID Status Reason Start Date Expiration Date V isits Requested Visits Authorized [id number] Closed Specialty Services Required 06/13/2024 06/13/2025 1 1 Encounter Details Date Type Department Care Team (Late st Contact Info) Description 06/13/2024 Orders Only [facility] MED[facility]INE [address] [place] [address] Jeni Garcia MD [address] [place] [address] Renal artery stenosis (CMS/HCC); Superior [...] is your housing situation today? I have dimityr adams 12/12/[address] you [...] Description 07/05/2025 2:00 PM EDT Medication Management [facility] MED[facility]INE [address] [place] [address] Margarita Baumann, PharmD 230 [place] [address] 09/03/2025 11:45 AM EST Office Visit [facility] MEDICINE [address] [place], [place] [phone] Jeni Garcia MD 230 [place], [place] [phone] Scheduled Referrals Name Type Priority Associated Diagnoses [...] PM EDT Narrative 06/28/2024 4:28 PM EDT [address] [address] XRay Report Signed Patient: Joan Armendariz MR#: [id number] : 1945 Acct:[id number] Age/Sex: 79 / F ADM Date: 06/28/24 Loc: HO.ED Attending Dr: Ordering Physician: Geovanna Austin Date of Service: 06/28/24 Procedure(s): XR lumbar spine 2-3V Accession Number(s): [id number] cc: Jeni Garcia MD; Geovanna Austin EXAMINATION: [...] 06/28/24 1625 DD/ 1600 TD/TT: 06/28/24 1615 Test Engine Evaluator: Procedure Note Donotuseinterpreter, Image - 06/28/2024 [place] [address] XRay Report Signed Patient: Joan Armendariz RMR#: [id number] : 1945cct:[id number] Age/Sex: 79 / FADM Date: 06/28/24 Loc: HO.ED Attending Dr: Ordering Physician: Geovanna Austin Date of Service: 06/28/24 Procedure(s): XR lumbar spine 2-3V Accession Number(s): [id number] cc: Jeni Garcia MD; Geovanna Austin EXAMINATION: [...] 06/28/24 1625 DD/ 1600 TD/TT: 06/28/24 1615 Test Engine Evaluator: [facility] External Provider IMG XR PROCEDURES Final Result * XR Chest 1 View (06/28/2024 12:52 PM EDT) Anatomical Region Laterality Modality Chest Radiographic Tamiko ging 06/28/2024 12:5 2 PM EDT Narrative 06/28/2024 3:02 PM EDT [address] [address] XRay Report Signed Patient: Joan Armendariz MR#: [id number] : 1945 Acct:[id number] Age/Sex: 79 / F ADM Date: 06/28/24 Loc: HO.ED Attending Dr: Ordering Physician: Geovanna Austin Date of Service: 06/28/24 Procedure(s): XR chest 1V Accession Number(s): [id number] cc: Jeni Garcia MD; Geovanna Austin EXAMINATION: [...] MD 06/28/2024 02:59 PM EDT RP Workstation: [employer] Dictated By: Franklin Lepe MD Signed By: <Electronically signed by Franklin Lepe MD in OV> 06/28/24 1459 DD/ 1252 TD/TT: 06/28/24 1259 Test Engine Evaluator: BETH Procedure Note Donotuseinterpreter, Image - 06/28/[address] [address] XRay Report Signed Patient: Joan Armendariz RMR#: [id number] : 3Acct:[id number] Age/Sex: 79 / FADM Date: 06/28/24 Loc: .ED Attending Dr: Ordering Physician: Geovanna Austin Date of Service: 06/28/24 Procedure(s): XR chest 1V Accession Number(s): [id number] cc: Jeni Garcia MD; Geovanna Austin EXAMINATION: [...] 06/28/24 1459 DD/ 1252 TD/TT: 06/28/24 1259 Test Engine Evaluator: BETH [facility] External Provider IMG XR PROCEDURES Final Result [...] documented as of this encounter Care Teams Curriculum Development Manager Relationship Specialty Start Date End Date Jeni Garcia MD [address] [place] [address] PCP - General Family Medicine 12/16/15 documented as of this encounter
--- OUTSIDE RECORDS SUMMARY | 2025-07-03 15:44 | XMS_ITS | Encounter Summary ---
Author Organization [employer] Address [address] [place] [address] 7t [place] [address] Care Team Providers Care Extractor Operator Helper Name Role Phone Jeni Garcia MD Primary Care Provider + Encounter Details Date Type Department Care Team ([facility] Contact Info) Description 04/04/2023 Orders Only [facility] MED[facility]INE [address] [place] [address] [phone] Jeni Garcia MD [address] [place] [address] [phone] Social History Tobacco Use Types Packs/Day Years [...] Upcoming Encounters Date Type Department Care Team ([facility] Contact Info) Description 07/05/2025 2:00 PM EDT Medication Management [facility] [address] [place] [address] [phone] Margarita Baumann PharmD 230 [place], [place] [phone] 09/03/2025 11:45 AM EST Office Visit [facility] 230 [place], [place] [phone] Jeni Garcia MD 230 [place], [place] [phone] documented as of this encounter Visit Diagnoses Not on filedocumented in this encounter Additional Health Concerns Assessment Noted Time PHQ-9 Depression Total Score: 0 11/16/19 23 10:53 AM EST documented as of this encounter Care Teams Extractor Operator Helper Relationship Specialty Start Date End Date Jeni Garcia MD [address] [place] [address] [phone] PCP - General Family Medicine 12/16/15 documented as of this encounter
--- OUTSIDE RECORDS SUMMARY | 2025-07-03 15:44 | XMS_ITS | Encounter Summary ---
Author Organization [employer] Address [address] [facility] 7t [place] [address] Care Team Providers Care Product Blending Supervisor Name Role Phone Jeni Garcia MD Primary Care Provider + Reason for Visit * Reason Comments Med Change Request Encounter Details Date Type Department Care Team ([facility] st Contact Info) Description 05/12/[address] [facility] MEDICINE 230 [place], [place] [phone] Jeni Garcia MD 230 [place], [place] [phone] Social History Tobacco Use Types Packs/Day Years [...] PM EDT Medication Management [facility] MED[facility]INE [address] [place] [address] Margarita Baumann, PharmD [address] [place] [address] 09/03/2025 11:45 AM EST Office Visit [facility] MED[facility]INE [address] [place] [address] Jeni Garcia MD [address] [place] [address] documented as of this encounter Visit Diagnoses Not on filedocumented in this encounter Additional Health Concerns Assessment Noted Time PHQ-9 Depression Total Score: 9 04/18/20 25 11:57 AM EDT documented as of this encounter Care Teams Product Blending Supervisor Relationship Specialty Start Date End Date Jeni Garcia MD [address] [place] [address] PCP - General Family Medicine 12/16/15 documented as of this encounter
--- OUTSIDE RECORDS SUMMARY | 2025-07-03 15:44 | XMS_ITS | Encounter Summary ---
Author Organization [employer] Address [address] [place] [address] 7t [place] [address] Care Team Providers Care User Experience Researcher Name Role Phone Jeni Garcia MD Primary Care Provider + Reason for Referral * Consultation (Routine) - Authorized Specialty Diagnoses / Procedures Referred By Contac t Referred To Contact Pharmacy Diagnoses Hypertension Antonia Harper MD 230 [place] [address] Phone: tel: fax: Referral ID Status Reason Start Date Expiration Date Visits Requested Visits Authorized [id number] Authorized Continuity of Care 06/20/2025 06/20/2026 6 6 Encounter Details Date Type Department Care Team (Late st Contact Info) Description 06/20/2025 Orders Only [facility] MEDICINE 230 [place], [place] [phone] Jeni Garcia MD 230 [place], [place] [phone] Hypertension (Primary Dx) Social History Tobacco Use [...] Description 07/05/2025 2:00 PM EDT Medication Management [facility]INE [address] [place] [address] Margarita Baumann, Alonso [address] [place] [address] 09/03/2025 11:45 AM EST Office Visit [facility] MED[facility]INE [address] [place] [address] Jeni Garcia MD [address] [place] [address] Scheduled Referrals Name Type Priority Associated Diagnoses Orde r Schedule Referral to Pharmacy MTM Outpatient Referral Routine Hypertension Ordered: 06/20/2025 documented as of this encounter Visit Diagnoses Diagnosis Hypertension- Primary Unspecified essential hypertension documented in this encounter Additional Health Concerns Assessment Noted Time PHQ-9 Depression Total Score: 9 04/18/20 25 11:57 AM EDT documented as of this encounter Care Teams User Experience Researcher Relationship Specialty Start Date End Date Jeni Garcia MD 230 [place] [address] PCP - General Family Medicine 12/16/15 documented as of this encounter
--- OUTSIDE RECORDS SUMMARY | 2025-07-03 15:44 | XMS_ITS | Encounter Summary ---
Author Organization [employer] Address [address] [place] [address] 7 [place] [address] Care Team Providers Care Associate Professor Of Surgery Name Role Phone Jeni Garcia MD Primary Care Provider + Encounter Details Date Type Department Care Team (Latest Contact Info) Description 04/28/2021 Abstract [facility] Dental, Provider, DDS Social History Tobacco [...] Description 07/05/2025 2:00 PM EDT Medication Management [facility] MEDICINE [address] [place] [address] Margarita Baumann, PharmD 230 [place] [address] 09/03/2025 11:45 AM EST Office Visit [facility] MEDICINE [address] [place] [phone] Jeni Garcia MD 230 [place] [address] documented as of this encounter Visit Diagnoses Not on filedocumented in this encounter Care Teams Associate Professor Of Surgery Relationship Specialty Start Date End Date Jeni Garcia MD [address] [place] [address] PCP - General Family Medicine 12/16/15 documented as of this encounter
--- OUTSIDE RECORDS SUMMARY | 2025-07-03 15:44 | XMS_ITS | Encounter Summary ---
Author Organization [employer] Address [address] [facility] 7t [place] [address] Care Team Providers Care Director Fixed Income Name Role Phone Jeni Garcia MD Primary Care Provider + Reason for Visit * Reason Comments Med Refill Encounter Details Date Type Department Care Team (Late st Contact Info) Description 10/19/2023 Refill [facility] MEDICINE 230 [place], [place] [phone] Jayshree Andrade DO 230 [place], [place] [phone] Social History Tobacco Use Types Packs/Day Years [...] Description 07/05/2025 2:00 PM EDT Medication Management [facility] [address] [place] [address] Margarita Baumann, PharmD [address] [place] [address] 09/03/2025 11:45 AM EST Office Visit [facility] [address] [place] [address] Jeni Garcia MD [address] [place] [address] [phone] documented as of this encounter Visit Diagnoses Not on filedocumented in this encounter Additional Health Concerns Assessment Noted Time PHQ-9 Depression Total Score: 0 11/16/19 23 10:53 AM EST documented as of this encounter Care Teams Director Fixed Income Relationship Specialty Start Date End Date Jeni Garcia MD [address] [place] [address] PCP - General Family Medicine 12/16/15 documented as of this encounter
--- OUTSIDE RECORDS SUMMARY | 2025-07-03 15:45 | XMS_ITS | Encounter Summary ---
Author Organization [employer] Address [address] [place] [address] 7 [place] [address] Care Team Providers Care Riverine Assault Craft Crewman Name Role Phone Jeni Garcia MD Primary Care Provider + Reason for Visit * Reason Onset Date Comments Call Back Request 01/02/2025 Encounter Details Date Type Department Care Team ([facility] Contact Info) Description 01/02/2025 Telephone [facility] MEDICINE 230 [place], [place] [phone] Jeni Garcia MD 230 [place], [place] [phone] Call Back Request Social History Tobacco Use [...] visit because they dohave another appt prior. Junior Net Developer did inform them on 15 min mao period but forwarding message as anFYI. Please contact Daughter at [phone]. documented in this encounter Plan of Treatment Upcoming Encounters Date Type Department Care Team (Late st Contact Info) Description 07/05/2025 2:00 PM EDT Medication Management [facility] [address] [place] [phone] Margarita Baumann, XinD 230 [place] [address] 09/03/2025 11:45 AM EST Office Visit [facility] [address] [place] [phone] Jeni Garcia MD 230 [place] [address] documented as of this encounter Visit Diagnoses Not on filedocumented in this encounter Additional Health Concerns Assessment Noted Time PHQ-9 Depression Total Score: 0 11/16/19 23 10:53 AM EST documented as of this encounter Care Teams Riverine Assault Craft Crewman Relationship Specialty Start Date End Date Jeni Garcia MD 230 [place] [address] PCP - General Family Medicine 12/16/15 documented as of this encounter
--- OUTSIDE RECORDS SUMMARY | 2025-07-03 15:45 | XMS_ITS | Encounter Summary ---
Author Organization [employer] Address [address] [place] [address] [place], [place] [address] Care Team Providers Care Director Of Food And Nutrition Name Role Phone Jeni Gacria MD Primary Care Provider + Encounter Details Date Type Department Care Team (Late st Contact Info) Description 09/27/2022 [facility] Health Information Management [address] [place] [address] [phone] Jeni Garcia MD [address] [place] [address] [phone] Social History Tobacco Use Types Packs/Day Years [...] 2:00 PM EDT Medication Management [facility] MEDICINE [address] [place] [address] [phone] Margarita Baumann, PharmD [address] [place] [address] [phone] 09/03/2025 11:45 AM EST Office Visit [facility] MED[facility]INE [address] [place] [address] [phone] Jeni Garcia MD 230 [place] [address] documented as of this encounter Visit Diagnoses Not on filedocumented in this encounter Care Teams Director Of Food And Nutrition Relationship Specialty Start Date End Date Jeni Garcia MD [address] [place] [address] PCP - General Family Medicine 12/16/15 documented as of this encounter
--- OUTSIDE RECORDS SUMMARY | 2025-07-03 15:45 | XMS_ITS | Encounter Summary ---
Author Organization [employer] Address [address] [facility] 7t [place] [address] Care Team Providers Care Plant Pathologist Name Role Phone Jeni Garcia MD Primary Care Provider + Encounter Details Date Type Department Care Team (Latest Contact Info) Description 06/03/2025 Results Follow-Up [facility] MED[facility]INE [address] [place] [address] [phone] Jeni Garcia MD 230 [place], [place] [phone] CBC auto differential, Prothrombin Time-INR, Partial Thromboplastin [...] hemoglobin, patient admitted with abdominal pain to [facility] ED. Will follow-up upon discharge documented in this encounter Plan of Treatment Upcoming Encounters Date Type Department Care Team (Late st Contact Info) Description 07/05/2025 2:[address] EDT Medication Management [facility] [address] [place] [phone] Margarita Baumann, PharmD [address] [place] [address] 09/03/2025 11:45 AM EST Office Visit [facility] MED[facility]INE [address] [place] [address] [phone] Jeni Garica MD 230 [place] [address] documented as of this encounter Visit Diagnoses Not on filedocumented in this encounter Additional Health Concerns Assessment Noted Time PHQ-9 Depression Total Score: 9 04/18/20 25 11:57 AM EDT documented as of this encounter Care Teams Plant Pathologist Relationship Specialty Start Date End Date Jeni Garcia MD [address] [place] [address] PCP - General Family Medicine 12/16/15 documented as of this encounter
--- OUTSIDE RECORDS SUMMARY | 2025-07-03 15:45 | XMS_ITS | Encounter Summary ---
Author Organization [employer] Address [address] [place] [address] 7t [place] [address] Care Team Providers Care Licensed Surveyor Name Role Phone Jeni Garcia MD Primary Care Provider + Reason for Visit * Reason Onset Date Comments DR MAK 05/31/2025 Encounter Details Date Type Department Care Team ([facility] st Contact Info) Description 05/31/2025 Telephone [facility] 230 [place], [place] [phone] Carie Phelps, DDS 230 [place], [place] [phone] DR MAK Social History Tobacco Use Types [...] can return the call to her at [phone] documented in this encounter Plan of Treatment Upcoming Encounters Date Type Department Care Team (Late st Contact Info) Description 07/05/2025 2:00 PM EDT Medication Management [facility] MED[facility] [address] [place] [phone] Margarita Baumann, PharmD [address] [place] [phone] 09/03/2025 11:45 AM EST Office Visit [facility] MED[facility] [address] [place] [phone] Jeni Garcia MD [address] [place] [address] documented as of this encounter Visit Diagnoses Not on filedocumented in this encounter Additional Health Concerns Assessment Noted Time PHQ-9 Depression Total Score: 9 04/18/20 11:57 AM EDT documented as of this encounter Care Teams Licensed Surveyor Relationship Specialty Start Date End Date Jeni Garcia MD [address] [place] [address] PCP - General Family Medicine 12/16/15 documented as of this encounter
== END 2025-07-03 12:18 | disposition home or self-care (01) ==
LOC: HO.LAB 12:17
PROVIDERS: PCP Internal Medicine; Visit Provider Internal Medicine Gastroenterology
DX: D64.9 Anemia, unspecified (principal)
CPT/HCPCS: 36415; 82728; 83540; 85027

== ENCOUNTER 2025-08-29 11:30 | Outpatient (RCR) | payer OTHER, SELFPAY ==
[2025-08-07 11:05] VITALS: BP 115/30; PULSE 79; RESP 16; TEMP 36.7; O2SAT 98
[2025-08-15 10:54] VITALS: BP 125/51; PULSE 68; RESP 16; TEMP 36.4; O2SAT 100
[2025-08-22 10:50] VITALS: BP 155/47; PULSE 65; RESP 18; TEMP 36.6
[2025-08-29 11:35] VITALS: BP 100/40; PULSE 75; RESP 16; TEMP 36.6; O2SAT 96
== END 2025-08-29 13:02 | disposition home or self-care (01) ==
LOC: HO.INF 11:30
PROVIDERS: Visit Provider Nurse Practitioner Family
DX: D64.9 Anemia, unspecified (principal)
CPT/HCPCS: 96365; J1756

== ENCOUNTER 2025-09-03 11:24 | Outpatient (REF) | payer OTHER, SELFPAY ==
[2025-09-03 13:32] LABS: Appearance Urine Clear; Glucose Urine UA Negative (Negative); PH 7.0 (5.0-9.0); Specific Gravity - Urine 1.010 (1.005-1.025); UMIC TRIGGER UACC YES
[2025-09-03 13:39] LABS: Hematocrit 32.8 % (37.0-47.0); Hemoglobin 10.1 g/dl (12.0-16.0); Mean Corpuscular HGB Conc 30.8 g/dl (31.0-35.0); Mean Corpuscular Hemoglobin 27.4 pg (27.0-33.0); Mean Corpuscular Volume 89.1 fL (80.0-98.0); NRBC Abs Auto 0.000 X10*3/uL (0.0-0.012); NRBC Pct Auto 0.0 /100WBC (0.0-0.2); Platelet Count 235 X10*3/uL (160-400); Red Blood Count 3.68 X10*6/uL (4.20-5.50); White Blood Count 7.6 X10*3/uL (4.8-10.8)
[2025-09-03 14:05] LABS: Alanine Aminotransferase 15 U/L (0-31); Albumin Level 4.0 g/dL (3.5-5.0); Alkaline Phosphatase 71 U/L (39-117); Anion Gap 13 (12-20); Aspartate Amino Transferase 24 U/L (5-31); Blood Urea Nitrogen 15 mg/dL (9-16); Calcium 9.5 mg/dL (8.4-10.2); Carbon Dioxide 25 mmol/L (22-29); Chloride 106 mmol/L (96-108); Estimated Glomerular Filt Rate 56; Potassium 4.0 mmol/L (3.3-5.1); Sodium 140 mmol/L (135-145); Total Protein 7.3 g/dL (6.5-8.0)
[2025-09-03 14:23] LABS: Atypical Lymph Absolute Manual 0.2 x10*3/uL; Atypical Lymphs Percent Manual 2 % (0-6); Eosinophils Absolute Manual 1.1 X10*3/uL (0.0-0.4); Eosinophils Percent Manual 15 % (0-4); Lymphocytes Absolute Manual 1.8 X10*3/uL (1.2-4.9); Lymphocytes Percent Manual 24 % (20-40); Monocytes Absolute Manual 0.4 X10*3/uL (0.1-1.2); Monocytes Percent Manual 5 % (2-11); Neutrophils Percent Manual 54 % (45-73)
[2025-09-03 14:25] LABS: Band Neutrophils Percent 0 % (3-5); Burr Cells 1+ (0-2) /OIF; Hypochromasia 1+ (5-14) /OIF; Large Platelet PRESENT; Macrocytosis 1+ (5-14) /OIF; Neutrophils Absolute Manual 4.1 X10*3/uL (2.0-8.3); Ovalocytes 1+ (5-14) /OIF; Polychromasia 1+ (0-2) /OIF; RBC Morphology NOTED
== END 2025-09-03 11:25 | disposition home or self-care (01) ==
LOC: HO.HHCL 11:24
PROVIDERS: PCP Internal Medicine; Referring Provider Nurse Practitioner Family; Visit Provider Internal Medicine
DX: D72.825 Bandemia (principal); K92.1 Melena; D64.9 Anemia, unspecified
CPT/HCPCS: 36415; 80053; 81001; 83615; 85007; 85027

== ENCOUNTER 2025-09-09 09:47 | Outpatient (REF) | payer OTHER, SELFPAY ==
--- NOTE | ~2025-09-09 | FL_ITS ---
EXAMINATION: XR BARIUM SWALLOW CLINICAL INFORMATION: Dysphagia COMPARISON: Chest and rib x-ray June [address] May 2021 TECHNIQUE: Barium swallow was performed using thin and thick barium and effervescent granules. Barium tablet was also administered. FINDINGS: There is trace laryngeal penetration with liquid barium. No aspiration. There is mild esophageal dysmotility. No mass, stricture, =or mucosal irregularity seen. No hiatal hernia or gastroesophageal reflux could be elicited. Barium tablet passed into the stomach. FLUOROSCOPY TIME: 1.44 minutes DOSE AREA PRODUCT: 933 uGy-m2 (microgray-meter squared) FL/FL barium swallow with air IMPRESSION: Trace laryngeal penetration. No aspiration. Mild esophageal dysmotility. Otherwise unremarkable exam. Electronically signed by: Dilma Solomon MD 09/09/2025 02:42 PM [facility]
--- OUTSIDE RECORDS SUMMARY | 2025-09-09 11:31 | XMS_ITS | Encounter Summary ---
Author Organization [employer] Address [address] [facility] 7t [place] [address] Care Team Providers Care Cray Fishing Hand Name Role Phone Jeni Garcia MD Primary Care Provider + Reason for Visit * Reason Comments Med Refill Encounter Details Date Type Department Care Team (Late st Contact Info) Description 09/04/2025 Refill [facility] [address] [place], [place] [phone] Mimi Yao MD [address] [place], [place] [phone] Primary hypertension Social History Tobacco Use Types Packs/Day Years Used Date Smoking Tobacco: Never Passive Smoke Exposure: Never Smokeless Tobacco: Never Alcohol Use Standard Drinks/Week Comments Never 0 (1 standard drink = 0.6 oz pur e alcohol) Alcohol Answer Date Recorded How often do you have a drink containing alcohol ? 0 09/03/2025 Average Number of Drinks Not on file 025 How often do you have six or more drinks on one occasion? 0 09/03/2025 Depression Answer Date Recorded Patient Health Questionnaire-9 [...] Care Team (Late st Contact Info) Description 10/25/2025 11:30 AM EST Medication Management [address] [address] Margarita Baumann, PharmD [address] [place] [address] 10/30/2025 10:30 AM EST Office Visit [address] [address] Jeni Garcia MD [address] [place] [address] 12/05/2025 11:15 AM EST Office Visit [address] [address] Jeni Garcia MD [address] [place] [address] documented as of this encounter Visit Diagnoses Diagnosis Primary hypertension Unspecified essential hypertension documented in this encounter Additional Health Concerns Assessment Noted Time PHQ-9 Depression Total Score: 9 04/18/20 25 11:57 AM EDT documented as of this encounter Care Teams Cray Fishing Hand Relationship Specialty Start Date End Date Jeni Garcia MD 230 [place] [address] PCP - General Family Medicine 12/16/15 documented as of this encounter
--- OUTSIDE RECORDS SUMMARY | 2025-09-09 11:31 | XMS_ITS | Clinical Summary ---
Author Organization 175 [facility] Address [address] [place] [address] Phone Care Team Providers Care Player Services Representative Name Role Phone Jeni Garcia MD Primary Care Provider + [phone] Allergies Active Allergy Reactions Criticality Noted Date [...] osteoarthritis of left knee 01/02 Myocardial infarction ([facility] V24, [facility] V28) 01/02/2025 S/P angioplasty with stent 01/02/2025 Status post total right knee replacement 025 Cholelithiasis 12/03/2024 CKD (chronic kidney disease) , stage III ([facility] V24, [facility] V28) 11/15/2024 Severe obesity (BMI 35.0-39. 9) with comorbidity ([facility] V24, [facility] V28) 11/15/2024 Dental plaque 11/13/2024 Cellulitis 09/04/2024 Fracture of vertebra due to osteoporosis with delayed healing 07/06/2024 Overview (11/15/2024): Xray L-spine on 06/28: L4 fracture/sp T12 vertebral augmentation-previous fx- Leg pain, diffuse, right 06/28/2024 Celiac artery stenosis ([facility] V24) 06/13/2024 Renal artery stenosis ([facility] V24) 06/13/2024 Superior mesenteric artery stenosis ([facility] V24 ) 06/13/2024 Open broken tooth due [...] pain 06/28/2017 Hypothyroidism 06/28/2017 Rheumatoid arthritis, adult ([facility] V24, [facility] V28) 06/28/2017 Degeneration of lumbar intervertebral disc 12/10 Chronic obstructive pulmonar y disease ([facility] V24, [facility] V28) 12/11/2012 Angle-closure glaucoma 09/29/2012 GERD (gastroesophageal reflux disease) 2 Eosinophil count raised 05/15/2012 Hypertension 04/12/2012 Gait instability 04/12/2012 Neck pain 04/12/2012 Encounters Date Type Department Care Team Description 07/11/2025 1:30 PM EDT Office Visit Orthopedic Surgery - [address] [phone] Eloisa Torres NP Post-traumatic osteoarthritis of left knee (Primary Dx) from Last 3 Months Surgical History Surgery Date Site/Laterality Comments SHOULDER SURGERY 01/06/2023 Left PROCEDURE: HISTORICAL SHOULDER SURGERY; COMMENT: RTSA Medical History Medical History Date Comments Heart attack ([facility] V24, [facility] V28) 12/22/19 DURING A CRUISE Social History [...] Care Team (Late st Contact Info) Description 11/13/2025 10:30 AM EST Office Visit Orthopedic Surgery - [place] [address] [facility] [address] [place] [phone] Lazaro Saleh MD 175 [facility] [address] [place] [address] Health Maintenance Due Date Last Done Comments [...] on patient's age to complete this [place] [id number] MEDICAID - [place] [employer] MEDICARE Advance Directives Documents on File Type Date Recorded Patient Seismograph Shooter Expl anation Health Care Decision (hx) 03/27/2019 [...] (hx) 03/27/2019 AD CEJA DIRECTIVE Care Teams Player Services Representative Relationship Specialty Start Date End Date Jeni Garcia MD [address] [place] [phone] [facility] - General 05/19/21
--- OUTSIDE RECORDS SUMMARY | 2025-09-09 11:31 | XMS_ITS | Encounter Summary ---
Author Organization [employer] Address [address] [place] [address] 7t [place] [address] Care Team Providers Care Vitreo Retinal Surgeon Name Role Phone Jeni Garcia MD Primary Care Provider + Encounter Details Date Type Department Care Team (Late Contact Info) Description 02/25/2023 Orders Only [facility] [address] [place] [phone] Jeni Garcia MD [address] [place] [address] [phone] Obstructive sleep apnea syndrome (Primary Dx) Social [...] Department Care Team (Late Contact Info) Description 10/25/2025 11:30 AM EST Medication Management [address] [address] Margarita Baumann, Alonso [address] [place] [address] 10/30/2025 10:30 AM EST Office Visit [address] [address] Jeni Garcia MD [address] [place] [address] 12/05/2025 11:15 AM EST Office Visit [address] [phone] Jeni Garcia MD [address] [place] [address] documented as of this encounter Visit Diagnoses Diagnosis Obstructive sleep apnea syndrome- Primary Obstructive sleep apnea (adult) (pediatric) documented in this encounter Additional Health Concerns Assessment Noted Time PHQ-9 Depression Total Score: 0 11/16/19 23 10:53 AM EST documented as of this encounter Care Teams Vitreo Retinal Surgeon Relationship Specialty Start Date End Date Jeni Garcia MD [address] [place] [address] [phone] PCP - General Family Medicine 12/16/15 documented as of this encounter
--- OUTSIDE RECORDS SUMMARY | 2025-09-09 11:31 | XMS_ITS | Encounter Summary ---
Author Organization [employer] Address 75 [facility] 7t [place] [address] Care Team Providers Care Geography Department Chair Name Role Phone Jeni Garcia MD Primary Care Provider + Reason for Visit * Reason Onset Date Comments preop 09/05/2025 Encounter Details Date Type Department Care Team ([facility] Contact Info) Description 09/05/2025 Telephone [facility] 230 [place], [place] [phone] Jeni Garcia MD 230 [place], [place] [phone] preop Social History Tobacco Use Types Packs/Day Years [...] encounter Miscellaneous Notes * Telephone Encounter - Jaden Hawkins - 09/05/2025 4:44 PM EST Pt agreed to pre-op on 10/30/24 Facility currently closed (04:46pm ) fax sent with pre-op info * Telephone Encounter - Diane Lennon - 09/05/2025 12:32 PM EST Date of Surgery: left eye 11/11 - right eye 12/09 Surgical procedure being done: Cataract Type of anesthesia: MAC Lab needed: No EKG: No Surgeon's name: Dr. Michael Perez Facility name: [facility] Surgeon's office number: [phone] Surgeon's office fax number: [phone] Contact name (person you spoke with): Estefanía Last office note from surgeon requested: No Send Message to Jaden Hawkins One pre-op work for both surgery. Estefanía looking for a appointment between 10/28/25 and 11/06/25 documented in this encounter Plan of Treatment Upcoming Encounters Date Type Department Care Team (Late st Contact Info) Description 10/25/2025 11:30 AM EST Medication Management [facility] [address] [place] [phone] Margarita Baumann PharmD 230 [place] [address] 10/30/2025 10:30 AM EST Office Visit [address] [address] Jeni Garcia MD [address] [place] [address] 12/05/2025 11:15 AM EST Office Visit [address] [address] Jeni Garcia MD [address] [place] [address] documented as of this encounter Visit Diagnoses Not on filedocumented in this encounter Additional Health Concerns Assessment Noted Time PHQ-9 Depression Total Score: 9 04/18/20 25 11:57 AM EDT documented as of this encounter Care Teams Geography Department Chair Relationship Specialty Start Date End Date Jeni Garcia MD [address] [place] [address] [phone] PCP - General Family Medicine 12/16/15 documented as of this encounter
--- OUTSIDE RECORDS SUMMARY | 2025-09-09 11:31 | XMS_ITS | Encounter Summary ---
Author Organization [employer] Address 75 [facility] 7t [place] [address] Care Team Providers Care Coordinator Of Genetic Services Name Role Phone Jeni Garcia MD Primary Care Provider + Reason for Visit * Reason Comments Med Refill Encounter Details Date Type Department Care Team (Late st Contact Info) Description 10/19/2023 Refill [facility] 230 [place], [place] [phone] Jayshree Andrade DO 230 [place], [place] [phone] Social History Tobacco Use Types Packs/Day Years [...] Description 10/25/2025 11:30 AM EST Medication Management [address] [address] Margarita Baumann, PharmD [address] [place] [address] 10/30/2025 10:30 AM EST Office Visit [address] [address] Jeni Garcia MD [address] [place] [address] 12/05/2025 11:15 AM EST Office Visit [address] [address] Jeni Garcia MD [address] [place] [address] documented as of this encounter Visit Diagnoses Not on filedocumented in this encounter Additional Health Concerns Assessment Noted Time PHQ-9 Depression Total Score: 0 11/16/19 23 10:53 AM EST documented as of this encounter Care Teams Coordinator Of Genetic Services Relationship Specialty Start Date End Date Jeni Garcia MD [address] [place] [phone] PCP - General Family Medicine 12/16/15 documented as of this encounter
--- OUTSIDE RECORDS SUMMARY | 2025-09-09 11:31 | XMS_ITS | Encounter Summary ---
Author Organization [employer] Address [address] [place] [address] 7t [place] [address] Care Team Providers Care Cutting Table Operator Name Role Phone Jeni Garcia MD Primary Care Provider + Encounter Details Date Type Department Care Team ([facility] Contact Info) Description 04/04/2023 Orders Only [facility] [address] [place] [address] [phone] Jeni Garcia MD [address] [place] [address] [phone] Social History Tobacco Use Types Packs/Day Years [...] Upcoming Encounters Date Type Department Care Team ([facility] Contact Info) Description 10/25/2025 11:30 AM EST Medication Management [facility] [address] [place] [address] Margarita Baumann, Alonso 230 [place] [address] 10/30/2025 10:30 AM EST Office Visit [facility] [address] [place] [address] Jeni Garcia MD [address] [place], [place] [phone] 12/05/2025 11:15 AM EST Office Visit [facility] [address] [place] [address] Jeni Garcia MD [address] [place] [address] [phone] documented as of this encounter Visit Diagnoses Not on filedocumented in this encounter Additional Health Concerns Assessment Noted Time PHQ-9 Depression Total Score: 0 11/16/19 23 10:53 AM EST documented as of this encounter Care Teams Cutting Table Operator Relationship Specialty Start Date End Date Jeni Garcia MD [address] [place] [address] [phone] PCP - General Family Medicine 12/16/15 documented as of this encounter
--- OUTSIDE RECORDS SUMMARY | 2025-09-09 11:31 | XMS_ITS | Encounter Summary ---
Author Organization [email or web address] Address [address] [place] [address] 7t [place] [address] Care Team Providers Care Director Of Science Name Role Phone Jeni Garcia MD Primary Care Provider + Reason for Visit * Reason Onset Date Comments C pap request 01/26/2023 Encounter Details Date Type Department Care Team ([facility] st Contact Info) Description 01/26/2023 Telephone [facility] 230 [place], [place] [phone] Jeni Garcia MD 230 [place], [place] [phone] C pap request Social History Tobacco Use [...] on CPAP machine. Please contact pt at [phone] (Barbadian speaker) * Telephone Encounter - Aleshia Stark [...] Description 10/25/2025 11:30 AM EST Medication Management [address] [address] Margarita Baumann, PharmD [address] [place] [address] 10/30/2025 10:30 AM EST Office Visit [address] [address] Jeni Garcia MD [address] [place] [address] 12/05/2025 11:15 AM EST Office Visit [address] [phone] Jeni Garcia MD [address] [place], [place] [phone] documented as of this encounter Visit Diagnoses Not on filedocumented in this encounter Additional Health Concerns Assessment Noted Time PHQ-9 Depression Total Score: 0 11/16/19 23 10:53 AM EST documented as of this encounter Care Teams Director Of Science Relationship Specialty Start Date End Date Jeni Garcia MD [address] [place] [address] PCP - General Family Medicine 12/16/15 documented as of this encounter
--- OUTSIDE RECORDS SUMMARY | 2025-09-09 11:31 | XMS_ITS | Encounter Summary ---
Author Organization [email or web address] Address [address] [place] [address] 7t [place] [address] Care Team Providers Care Afternoon Babysitter Name Role Phone Jeni Garcia MD Primary Care Provider + Reason for Visit * Reason Onset Date Comments C Pap 02/22/2023 Encounter Details Date Type Department Care Team ([facility] st Contact Info) Description 02/22/2023 Telephone [facility] 230 [place], [place] [phone] Jeni Garcia MD 230 [place], [place] [phone] C Pap Social History Tobacco Use Types [...] If any questions please contact pt at [phone] (greek speaking) * Telephone Encounter - Temi Bojorquez - 02/22/2023 2:44 PM EDT Tc from Pt requesting a script for Cpap Machine talk on appt on 02/15 with provider. Pt give fax number to send script to [facility] # [phone]. PCP Dr. Garcia documented in this encounter Plan of Treatment Upcoming Encounters Date Type Department Care Team (Late st Contact Info) Description 10/25/2025 11:30 AM EST Medication Management [address] [address] Margarita Baumann, PharmD [address] [place] [address] 10/30/2025 10:30 AM EST Office Visit [address] [address] Jeni Garcia MD [address] [place] [address] 12/05/2025 11:15 AM EST Office Visit [address] [address] Jeni Garcia MD [address] [place] [address] documented as of this encounter Visit Diagnoses Not on filedocumented in this encounter Additional Health Concerns Assessment Noted Time PHQ-9 Depression Total Score: 0 11/16/19 23 10:53 AM EST documented as of this encounter Care Teams Afternoon Babysitter Relationship Specialty Start Date End Date Jeni Garcia MD [address] [place] [address] PCP - General Family Medicine 12/16/15 documented as of this encounter
--- OUTSIDE RECORDS SUMMARY | 2025-09-09 11:31 | XMS_ITS | Encounter Summary ---
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 Jeni Garcia MD 230 [place] [address] Phone: tel: fax: [facility] [address] [facility] [address] [place] [address] Phone: tel: fax: Referral ID Status Reason Start Date Expiration Date V isits Requested Visits Authorized [id number] Closed Specialty Services Required 06/13/2024 06/13/2025 1 1 Encounter Details Date Type Department Care Team (Late st Contact Info) Description 06/13/2024 Orders Only [facility] 230 [place], [place] [phone] Jeni Garcia MD 230 [place], [place] [phone] Renal artery stenosis (CMS/HCC); Superior mesenteric artery [...] Description 10/25/2025 11:30 AM EST Medication Management [facility] 230 [place] [address] Margarita Baumann, PharmD 230 [place], [place] [phone] 10/30/2025 10:30 AM EST Office Visit [facility] [address] [place] [address] Jeni Garcia MD 230 [place] [address] 12/05/2025 11:15 AM EST Office Visit [facility] [address] [place] [address] [phone] Jeni Garcia MD [address] [place], [place] [phone] Scheduled Referrals Name Type Priority Associated Diagnoses [...] PM EDT Narrative 06/28/2024 4:28 PM EDT [address] [address] XRay Report Signed Patient: Joan Armendariz MR#: [id number] : 1945 Acct:[id number] Age/Sex: 79 / F ADM Date: 06/28/24 Loc: .ED Attending Dr: Ordering Physician: Geovanna Austin Date of Service: 06/28/24 Procedure(s): XR lumbar spine 2-3V Accession Number(s): [id number] cc: Jeni Garcia MD; Geovanna Austin EXAMINATION: [...] 06/28/24 1625 DD/ 1600 TD/TT: 06/28/24 1615 Environmental Manager: Procedure Note Donotuseinterpreter, Image - 06/28/[address] [address] XRay Report Signed Patient: Joan Armendariz RMR#: [id number] : 1945cct:[id number] Age/Sex: 79 / FADM Date: 06/28/24 Loc: .ED Attending Dr: Ordering Physician: Geovanna Austin Date of Service: 06/28/24 Procedure(s): XR lumbar spine 2-3V Accession Number(s): [id number] cc: Jeni Garcia MD; Geovanna Austin EXAMINATION: [...] 06/28/24 1625 DD/ 1600 TD/TT: 06/28/24 1615 Environmental Manager: [facility] External Provider IMG XR PROCEDURES Final Result * XR Chest 1 View (06/28/2024 12:52 PM EDT) Anatomical Region Laterality Modality Chest Radiographic Tamiko ging 06/28/2024 12:5 2 PM EDT Narrative 06/28/2024 3:02 PM EDT [address] [address] XRay Report Signed Patient: Joan Armendariz MR#: [id number] : 1945 Acct:[id number] Age/Sex: 79 / F ADM Date: 06/28/24 Loc: HO.ED Attending Dr: Ordering Physician: Geovanna Austin Date of Service: 06/28/24 Procedure(s): XR chest 1V Accession Number(s): [id number] cc: Jeni Garcia MD; Geovanna Austin EXAMINATION: [...] 06/28/24 1459 DD/ 1252 TD/TT: 06/28/24 1259 Environmental Manager: BETH Procedure Note Donotuseinterpreter, Image - 06/28/2024 [place] [address] XRay Report Signed Patient: Joan Armendariz RMR#: [id number] : 1945cct:[id number] Age/Sex: 79 / FADM Date: 06/28/24 Loc: .ED Attending Dr: Ordering Physician: Geovanna Austin Date of Service: 06/28/24 Procedure(s): XR chest 1V Accession Number(s): [id number] cc: Jeni Garcia MD; Geovanna Austin EXAMINATION: [...] 06/28/24 1459 DD/ 1252 TD/TT: 06/28/24 1259 Environmental Manager: BETH Authorpamela Provider Result Type Result Stat [facility] External Provider IMG XR PROCEDURES Final Result documented in this encounter Visit Diagnoses Diagnosis Renal artery stenosis Atherosclerosis of renal artery Superior mesenteric artery stenosis Stricture of artery Celiac artery stenosis Stricture of artery documented in this encounter Additional Health Concerns Assessment Noted Time PHQ-9 Depression Total Score: 0 11/16/19 23 10:53 AM EST documented as of this encounter Care Teams Pharmaceutical Service Representative Relationship Specialty Start Date End Date Jeni Garcia MD [address] [place] [address] PCP - General Family Medicine 12/16/15 documented as of this encounter
--- OUTSIDE RECORDS SUMMARY | 2025-09-09 11:31 | XMS_ITS | Encounter Summary ---
Author Organization [employer] Address [address] [place] [address] 7t [place] [address] Care Team Providers Care Medical Assistant Instructor Name Role Phone Jeni Garcia MD Primary Care Provider + Reason for Referral * Consultation (Routine) - Authorized Specialty Diagnoses / Procedures Referred By Contac t Referred To Contact Pharmacy Diagnoses Hypertension Antonia Harper MD 230 [place] [address] Phone: tel: fax: Referral ID Status Reason Start Date Expiration Date Visits Requested Visits Authorized [id number] Authorized Continuity of Care 06/20/2025 06/20/2026 6 6 Encounter Details Date Type Department Care Team (Late st Contact Info) Description 06/20/2025 Orders Only [facility] 230 [place], [place] [phone] Jeni Garcia MD 230 [place], [place] [phone] Hypertension (Primary Dx) Social History Tobacco Use [...] Description 10/25/2025 11:30 AM EST Medication Management [address] [address] Margarita Baumann, PharmD [address] [place] [address] 10/30/2025 10:30 AM EST Office Visit [address] [address] Jeni Garcia MD [address] [place] [address] 12/05/2025 11:15 AM EST Office Visit [address] [address] Jeni Garcia MD 230 [place] [address] Scheduled Referrals Name Type Priority Associated Diagnoses Orde r Schedule Referral to Pharmacy [place] Outpatient Referral Routine Hypertension Ordered: 06/20/2025 documented as of this encounter Visit Diagnoses Diagnosis Hypertension- Primary Unspecified essential hypertension documented in this encounter Additional Health Concerns Assessment Noted Time PHQ-9 Depression Total Score: 9 04/18/20 25 11:57 AM EDT documented as of this encounter Care Teams Medical Assistant Instructor Relationship Specialty Start Date End Date Jeni Garcia MD 230 [place] [address] PCP - General Family Medicine 12/16/15 documented as of this encounter
--- OUTSIDE RECORDS SUMMARY | 2025-09-09 11:31 | XMS_ITS | Encounter Summary ---
Author Organization [employer] Address 75 [facility] 7t [place] [address] Care Team Providers Care Technical Specialist Cytology Name Role Phone Jeni Garcia MD Primary Care Provider + Reason for Visit * Reason Comments Med Change Request Encounter Details Date Type Department Care Team ([facility] st Contact Info) Description 05/12/2025 Refill [facility] MEDICINE 230 [place], [place] [phone] Jeni Garcia MD 230 [place], [place] [phone] Social History Tobacco Use Types Packs/Day Years [...] Description 10/25/2025 11:30 AM EST Medication Management [address] [address] Margarita Baumann, PharmD [address] [place] [address] 10/30/2025 10:30 AM EST Office Visit [address] [address] Jeni Garcia MD [address] [place] [address] 12/05/2025 11:15 AM EST Office Visit [address] [address] Jeni Garcia MD [address] [place] [address] documented as of this encounter Visit Diagnoses Not on filedocumented in this encounter Additional Health Concerns Assessment Noted Time PHQ-9 Depression Total Score: 9 04/18/20 25 11:57 AM EDT documented as of this encounter Care Teams Technical Specialist Cytology Relationship Specialty Start Date End Date Jeni Garcia MD [address] [place] [phone] PCP - General Family Medicine 12/16/15 documented as of this encounter
--- OUTSIDE RECORDS SUMMARY | 2025-09-09 11:31 | XMS_ITS | Encounter Summary ---
Author Organization [employer] Address 75 [facility] 7t [place] [address] Care Team Providers Care Freight Rate Analyst Name Role Phone Jeni Garcia MD Primary Care Provider + Reason for Visit * Reason Comments Med Refill Encounter Details Date Type Department Care Team (Late st Contact Info) Description 03/04/2025 Refill [facility] MEDICINE 230 [place], [place] [phone] Jeni Garcia MD 230 [place], [place] [phone] Social History Tobacco Use Types Packs/Day Years [...] Description 10/25/2025 11:30 AM EST Medication Management [address] [address] Margarita Baumann PharmD [address] [place] [address] 10/30/2025 10:30 AM EST Office Visit [address] [address] Jeni Garcia MD [address] [place] [address] 12/05/2025 11:15 AM EST Office Visit [address] [address] Jeni Garcia MD [address] [place] [address] documented as of this encounter Visit Diagnoses Not on filedocumented in this encounter Additional Health Concerns Assessment Noted Time PHQ-9 Depression Total Score: 0 11/16/19 23 10:53 AM EST documented as of this encounter Care Teams Freight Rate Analyst Relationship Specialty Start Date End Date Jein Garcia MD [address] [place] [phone] PCP - General Family Medicine 12/16/15 documented as of this encounter
--- OUTSIDE RECORDS SUMMARY | 2025-09-09 11:31 | XMS_ITS | Encounter Summary ---
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 10/05/2024 12:26 PM [facility] Clinical Information Heartburn,esophag eal reflux symptoms that persist despite appropriate therapy Finding:R/O oliver's 10/05/2024 12:26 PM [facility] Gross Description A. Esophagus, [...] on one slide. 10/05/2024 12:26 PM EST [facility] Disclaimer Unless otherwise specified, all tissue is 10% NB formalin fixed and paraffin embedded. 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
--- OUTSIDE RECORDS SUMMARY | 2025-09-09 11:31 | XMS_ITS | Encounter Summary ---
Author Organization [employer] Address 75 [facility] 7t [place] [address] Care Team Providers Care Case Consultant Name Role Phone Jeni Garcia MD Primary Care Provider + Encounter Details Date Type Department Care Team (Latest Contact Info) Description 09/03/2025 Results Follow-Up [facility] MEDICINE 230 [place], [place] [phone] Jeni Garcia MD 230 [place], [place] [phone] Complete Blood Count Manual Diff, Comprehensive Metabolic Panel, Lactate Dehydrogenase (LD) Social History Tobacco Use Types Packs/Day Years [...] Encounter Note - Jeni Garcia MD - 09/03/2025 3:43 PM EST Labs done today show stable hemoglobin, improved from previous and patient started on IV iron infusion. No need for additional prescription at this time. LDH is slightly elevated probably due to hypothyroidism or some degree of hemolysis? CMP is within normal limits AP/please call lab to add on fractionated LDH isoenzymes. documented in this encounter Plan of Treatment Upcoming Encounters Date Type Department Care Team (Late st Contact Info) Description 10/25/2025 11:30 AM EST Medication Management [facility] MEDICINE [address] [place] [phone] Margarita Baumann, PharmD [address] [place] [address] 10/30/2025 10:30 AM EST Office Visit [facility] MEDICINE [address] [place] [address] Jeni Garcia MD [address] [place] [address] 12/05/2025 11:15 AM EST Office Visit [facility] MEDICINE [address] [place] [address] [phone] Jeni Garcia MD [address] [place], [place] [phone] Scheduled Orders Name Type Priority Associated Diagnoses Orde r Schedule LDH ISOENZYMES Lab Routine Elevated LDH Expected: 09/03/2025 (Approximate), Expires: 09/03/2026 documented as of this encounter Visit Diagnoses Diagnosis Elevated LDH- Primary Nonspecific elevation of levels of transaminase or lactic acid dehydrogenase (LDH) documented in this encounter Additional Health Concerns Assessment Noted Time PHQ-9 Depression Total Score: 9 04/18/20 25 11:57 AM EDT documented as of this encounter Care Teams Case Consultant Relationship Specialty Start Date End Date Jeni Garcia MD [address] [place] [phone] PCP - General Family Medicine 12/16/15 documented as of this encounter
--- OUTSIDE RECORDS SUMMARY | 2025-09-09 11:31 | XMS_ITS | Clinical Summary ---
Author Organization [facility] Address 100 [facility] 20 0 [place] [address] Phone Care Team Providers Care Crts Name Role Phone Jeni Garcia MD Primary Care Provider + [phone] Allergies Active Allergy Reactions Criticality Noted Date [...] 06/17/2025 Refill [facility] [address] [place] [phone] Luke Quinn MD from Last 3 [...] Office Visit [facility] [address] [phone] Luke Quinn MD [facility] [address] [phone] 10/02/2025 Orders Only [facility] [address] [phone] Luke Quinn MD [address] [phone] Hypertension Health Maintenance Due Date Last Done Comments Diabetes: Ophthalmology Exam 12/17/2024 Diabetes: Pedal Pulse Checked 12/17/2024 Diabetes: Sensory Foot Exam 12/17/2024 Diabetes: Visual Foot Exam 12/17/2024 Influenza Vaccine (#1) 2025 4, 07/22/2022, 09/23/2021, Additional history exists Diabetes: Hemoglobin A1C 09/23/2025 025, 09/25/2024, 08/19/2023 Pneumococcal Vaccine: 50+ Years Completed 10/31/2023 Hepatitis [...] Hemoglobin A1C 6.3(H) 4.8 - 5.6 % [facility] Comment: Prediabetes: 5.7 - 6.4 Diabetes: >6.4 Glycemic control for adults with diabetes: <7.0 Blood specimen (specimen) Venous blood / Unknown 09/25/2024 10:16 AM EST 09/25/2024 Luke Quinn MD LAB BLOOD ORDERABLES Final Result [facility] [address] [place] [phone] from Last 3 Months or Most Recently Relevant to Health Maintenance Insurance Dual [employer] Dual Fare Motion Medicaid [place] Care Teams Crts Relationship Specialty Start Date End Date Jeni Garcia MD [address] [place] [phone] PCP - General Internal Medicine 08/06/21
--- OUTSIDE RECORDS SUMMARY | 2025-09-09 11:31 | XMS_ITS | Encounter Summary ---
Author Organization [employer] Address [address] [place] [address] 7 [place] [address] Care Team Providers Care Erector Operator Name Role Phone Jeni Garcia MD Primary Care Provider + Encounter Details Date Type Department Care Team (Latest Contact Info) Description 04/28/2021 Abstract [facility] CONVERSIONS Dental, Provider, DDS Social History [...] Description 10/25/2025 11:30 AM EST Medication Management [address] [address] Margarita Baumann, PharmD [address] [place] [address] 10/30/2025 10:30 AM EST Office Visit [address] [address] Jeni Garcia MD [address] [place] [address] 12/05/2025 11:15 AM EST Office Visit [address] [address] Jeni Garcia MD 230 [place] [address] documented as of this encounter Visit Diagnoses Not on filedocumented in this encounter Care Teams Erector Operator Relationship Specialty Start Date End Date Jeni Garcia MD 230 [place] [address] PCP - General Family Medicine 12/16/15 documented as of this encounter
--- OUTSIDE RECORDS SUMMARY | 2025-09-09 11:31 | XMS_ITS | Encounter Summary ---
Author Organization [employer] Address [address] [place] [address] 7t [place] [address] Care Team Providers Care Harvesting Contractor Name Role Phone Jeni Garcia MD Primary Care Provider + Reason for Visit * Reason Onset Date Comments Results 09/03/2025 Encounter Details Date Type Department Care Team ([facility] st Contact Info) Description 09/03/2025 Results Follow-Up [facility] MEDICINE 230 [place], [place] [phone] Jeni Garcia MD 230 [place] [address] Urinalysis, Complete, with Reflex to Culture Social History Tobacco Use Types Packs/Day Years [...] Telephone Encounter - Yvonne Robles RN - 09/04/2025 9:29 AM EST TC placed to patient [phone] via [employer] (Adam #[id number]) in regards to below message.Patient verbalized understanding and did not have any further questions. Patient to f/u PRN. ----- Message from Jeni Garcia MD sent at 09/03/2025 3:51 PM EST ----- UA done today showed trace LE, patient has history subclinical UTIs and has multiple risk factors. RN: Please call her and tell her she seems to have a UTI (LE is not conclusive of UTI)and tell her to take macrobid x 7d, we will call her if culture showed ab resistance. MA: Please call lab to make sure it will be sent to culture (Im not sure that trace LE will qualifyfor culture, even though the order says to be sent for reflex culture.) ----- Message ----- From: Interface, Lab Results In Sent: 09/03/2025 1:34 PM EST To: Jeni Garcia MD * Result Encounter Note - Jeni Garcia MD - 09/03/2025 3:51 PM EST UA done today showed trace LE, patient has history subclinical UTIs and has multiple risk factors. RN: Please call her and tell her she seems to have a UTI (LE is not conclusive of UTI)and tell her to take macrobid x 7d, we will call her if culture showed ab resistance. MA: Please call lab to make sure it will be sent to culture (Im not sure that trace LE will qualifyfor culture, even though the order says to be sent for reflex culture.) documented in this encounter Plan of Treatment Upcoming Encounters Date Type Department Care Team (Late st Contact Info) Description 10/25/2025 11:30 AM EST Medication Management [facility] [address] [place] [address] Margarita Baumann, PharmD [address] [place] [address] 10/30/2025 10:30 AM EST Office Visit [address] [address] Jeni Garcia MD [address] [place] [address] 12/05/2025 11:15 AM EST Office Visit [address] [address] Jeni Garcia MD [address] [place] [address] documented as of this encounter Visit Diagnoses Not on filedocumented in this encounter Additional Health Concerns Assessment Noted Time PHQ-9 Depression Total Score: 9 04/18/20 25 11:57 AM EDT documented as of this encounter Care Teams Harvesting Contractor Relationship Specialty Start Date End Date Jeni Garcia MD [address] [place] [address] PCP - General Family Medicine 12/16/15 documented as of this encounter
--- OUTSIDE RECORDS SUMMARY | 2025-09-09 11:32 | XMS_ITS | Encounter Summary ---
Author Organization [employer] Address [address] [place] [address] 7t [place] [address] Care Team Providers Care Quilting Supervisor Name Role Phone Jeni Garcia MD Primary Care Provider + Reason for Visit * Reason Onset Date Comments DR MAK 05/31/2025 Encounter Details Date Type Department Care Team ([facility] st Contact Info) Description 05/31/2025 Telephone [facility] ADULT DENTAL 230 [place], [place] [phone] Carie Phelps, DDS [address] [place], [place] [phone] DR MAK Social History Tobacco Use Types [...] can return the call to her at [phone] documented in this encounter Plan of Treatment Upcoming Encounters Date Type Department Care Team (Late st Contact Info) Description 10/25/2025 11:30 AM EST Medication Management [address] [address] Margarita Baumann, PharmD [address] [place] [address] 10/30/2025 10:30 AM EST Office Visit [address] [address] Jeni Garcia MD [address] [place] [address] 12/05/2025 11:15 AM EST Office Visit [address] [address] Jeni Garcia MD 230 [place] [address] documented as of this encounter Visit Diagnoses Not on filedocumented in this encounter Additional Health Concerns Assessment Noted Time PHQ-9 Depression Total Score: 9 04/18/20 25 11:57 AM EDT documented as of this encounter Care Teams Quilting Supervisor Relationship Specialty Start Date End Date Jeni Garcia MD 230 [place] [address] PCP - General Family Medicine 12/16/15 documented as of this encounter
--- OUTSIDE RECORDS SUMMARY | 2025-09-09 11:32 | XMS_ITS | Encounter Summary ---
Author Organization [employer] Address [address] [place] [address] 7 [place] [address] Care Team Providers Care Service Desk Lead Name Role Phone Jeni Garcia MD Primary Care Provider + Encounter Details Date Type Department Care Team (Late st Contact Info) Description 09/27/2022 [facility] Health Information Management [address] [place] [address] [phone] Jeni Garcia MD [address] [place] [address] [phone] Social History Tobacco Use Types Packs/Day Years [...] Description 10/25/2025 11:30 AM EST Medication Management [facility] MEDICINE [address] [place] [address] Margarita Baumann, PharmD 230 [place], [place] [phone] 10/30/2025 10:30 AM EST Office Visit [facility] MEDICINE [address] [place] [address] Jeni Garcia MD 230 [place], [place] [phone] 12/05/2025 11:15 AM EST Office Visit [facility] MEDICINE [address] [place] [address] [phone] Jeni Garcia MD [address] [place] [address] [phone] documented as of this encounter Visit Diagnoses Not on filedocumented in this encounter Care Teams Service Desk Lead Relationship Specialty Start Date End Date Jeni Garcia MD [address] [place] [address] [phone] PCP - General Family Medicine 12/16/15 documented as of this encounter
--- OUTSIDE RECORDS SUMMARY | 2025-09-09 11:32 | XMS_ITS | Clinical Summary ---
Author Organization [employer] Address [address] [facility] [address] [place] [address] Care Team Providers Care Automatic Equipment Technician Name Role Phone Jeni Garcia MD Primary Care Provider + Allergies Active Allergy Reactions Criticality Noted Date Comments Acetaminophen Hives,Rash Low 09/04/2013 Codeine Anaphylaxis,Dizzines s,Rash, Hives High 10/26/2012 Hydrocodone Itching 10/09/2014 Morphine Dizziness,Hallucinat ions,It hammad High 10/26/2012 Oxycodone Hives Low 09/04/2013 Oxycodone-Acetaminophen Rash Low 09/03/2021 Tramadol Headache High 06/28/2024 headache Medications acetaminophen (Tylenol) 325 MG tablet Take [...] mouth Once per day. 30 tablet 11 Active nitroglycerin (Nitrostat) 0.[address] 1 tablet (0.4 mg) under the tongue every 5 (five) minutes if needed for chest pain. 90 tablet 025 2025 Active gabapentin (Neurontin) 100 MG capsuleIndication s:Degeneration of lumbar intervertebral disc,Meralgia paresthetica of right side TAKE 1 CAPSULE BY MOUTH THREE TIMES A DAY 90 capsule Active levothyroxine (Synthroid, Levoxyl) 50 MCG tabletIndications [...] per day. 30 tablet 025 2025 Active budesonide-formot uriah (Symbicort) 160-4.5 MCG/ACT inhaler Inhale 2 puffs in the morning and at bedtime. 1 each 025 2025 Active Stye 0.5-0.6 % solution ADMINISTER 2 DROPS INTO AFFECTED EYE(S) IF NEEDED IN THE MORNING, AT NOON, AND AT BEDTIME (DRY EYE/IRRITATION) . 15 mL 3 Active olmesartan-hydroC HLOROthiazide (BENIcar HCT) 20-12.5 MG tablet Take 1 tablet by mouth Once per day. 30 tablet 11 025 2025 Active omeprazole (PriLOSEC) [address] capsule Take 1 capsule (20 mg) by mouth before breakfast and before evening meal. Do not crush or chew. 60 capsule 11 Active Diclofenac Sodium 1 % gel APPLY 1 INCH TOPICALLY IN THE MORNING AND AT BEDTIME NEEDED FOR PAIN 100 g Active nitrofurantoin, macrocrystal-mono hydrate, (Macrobid) 100 MG capsule Take 1 capsule (100 mg) by mouth 2 times daily for 7 days. 14 capsule 2024 Active carvedilol (Coreg) 6.25 MG tabletIndications :Primary hypertension TAKE 1 TABLET BY MOUTH WITH BREAKFAST AND 1 WITH EVENING MEAL 180 tablet Active carvedilol (Coreg) 6.25 MG tabletIndications :Primary hypertension TAKE 1 TABLET BY MOUTH WITH BREAKFAST AND 1 WITH EVENING MEAL 180 tablet 025 2024 Discontinued Diclofenac Sodium 1 % gel APPLY 1 INCH TOPICALLY IN THE MORNING AND AT BEDTIME NEEDED FOR PAIN 100 g 2024 Discontinued Active Problems Problem Noted Date Diagnosed Date Memory impairment 09/03/2025 Assessment & Plan (09/03/2025 3:37 PM EST): Patient with memory deficit mostly sure memory which she is very typical from decreased attention span. This could be related to multiple comorbidities that have led recently to increase procedures and change in POC and subsequent anxiety. 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 At this time she is fairly functional, takes all her medication to prevent further cardiovascular deterioration. Will follow-up on this at next appointment, if persistent, we may do additional evaluation including MRI of the brain and discussed with her about starting medication for dementia. Continue aspirin, statin, and BP control medications Gastrointestinal hemorrhage with melena 07/22/20 Assessment & Plan (07/22/2025 2:57 PM EDT): Patient had positive Hemoccult today, hemoglobin and VS are stable. She has known GERD and PUD/gastritis and seen by GI which is probably the source of small bleeding over the weekend that seems to have resolved as evidenced by stable hemoglobin. At this time she is hemodynamically stable, does not have orthostatic exam and hemoglobin has improved from previous. I will ask her to follow-up hemoglobin in 3 or 4 days to make sure that she does not continue to have an occult bleeding. DC aspirin x 1 week and observe melena, if not resolved, she should call back immediately Increase omeprazole to 20 mg twice daily on empty stomach and follow-up with me next month Meningioma ([facility]) 06/24/2025 Assessment & Plan (06/24/2025 6:18 PM [...] (05/28/2025 11:33 AM EDT): Case presented to [facility] provider, patient went [...] 3 months Coronary artery disease invo lving pechanga coronary artery of pechanga heart 01/03/2025 Overview (09/03/2025): S/P NSTEMI + PTCA to RCA on 11/2023 in [place] while in a Cruise Assessment & Plan (09/03/2025 3:31 PM EST): Patient is doing well, she is chest pain-free. Continue aspirin and Plavix lifelong, LDL goal is 70 and she will continue atorvastatin lifelong as well. Follow-up with cardiology She can undergo dental procedure with local anesthetics that do not contain epinephrine Assessment & Plan (06/24/2025 6:15 PM EDT): [...] with me. Stage 3a chronic kidney disease (CMS/HCC) 2024 Assessment & Plan (04/18/2025 3:26 PM EDT): [...] or current machine to be checked by Jasmyn. Patient needs to continue using CPAP every [...] low back pain 06/28/2017 Rheumatoid arthritis, adult (CMS/HCC) 06/28/2017 Assessment & Plan (04/18/2025 3:26 PM EDT): She is back on MTX and folic acid Follow-up with rheumatology Assessment & Plan (04/26/2023 1:35 PM EDT): On MTX + folic acid Continue to follow up with matthewmtology (Dr. Rizvi) Degeneration of lumbar intervertebral disc [...] Singulair and albuterol as needed Follow-up with preparation supervisor Assessment & Plan (01/03/2025 1:36 PM [...] pain 04/12/2012 Hypertension 04/12/2012 Assessment & Plan (09/03/2025 3:32 PM EST): Controlled. Compliant w/meds Continue olmesartan 20/12.5 + Coreg Counseled re low salt diet/increase moderate physical activity. Check home BP BIW and prn CP/PAREDES/WALTERS Non smoking patient. Follow-up in 3 to 4 months Assessment & Plan (07/22/2025 2:56 PM EDT): Patient run an episode of hypotension this morning, BP has been in the lower side over the past month probably as a result of patient losing weight (poor appetite) Decrease olmesartan to 20/12.5 and follow-up with me in 1 month, call back as needed if BP starts being above 140/95. Continue Coreg same dose Assessment & Plan (01/03/2025 1:44 PM EDT): [...] Problem Noted Date Diagnosed Date Resolved Date Hypotension 07/22/2025 09/03/2025 Assessment & Plan (07/22/2025 2:55 PM EDT): She had an episode around 12 noon, probably as a result of dehydration from being n.p.o. since breakfast. It is possible that she did have a GI bleeding over the weekend and her body is still working to get back up on fluids. Patient is otherwise asymptomatic at this time and abdominal pain is apparently at its best in the past few weeks, I think PUD symptoms started to improve on omeprazole for the past few days since her hemoglobin is stable. Increase omeprazole to twice daily on empty stomach, DC Pepcid. Decrease BP meds as below due to patient's weight loss. Reminded to have a smaller fractioned meals, increase p.o. fluids, suggested to drink boost nutritional supplement if she has poor appetite. Advised about red flags regarding GIB: Persistent dizziness, weakness, black stools (stools should normalize by tomorrow), nausea, vomiting or severe abdominal pain, she should go immediately to ED. Follow-up with GI if symptoms do not improve within 1 week, will follow-up with her in 1 month as scheduled Chronic ulcer of right thigh (CMS/HCC) 01/22/2025 04/18/2025 Assessment & Plan (01/23/2025 8:27 [...] rest at home. FU on Tuesday with [employer]. Will call tomorrow for health status check. [...] exercise, life style modifications, diet, referral to wardrobe specialist. Discussed re lower calorie intake, increase [...] Encounters Date Type Department Care Team Description 09/05/2025 Telephone [facility] [address] [place] [address] Jeni Garcia MD preop 09/04/2025 Refill [facility] [address] [place], [place] [address] Mimi Yao MD Primary hypertension 09/03/2025 11:45 AM EST Office Visit [facility] [address] [place] [address] Jeni Garcia MD Primary hypertension (Primary Dx); Memory impairment; Encounter for immunization; Coronary artery disease involving pechanga coronary artery of pechanga heart without angina pectoris 09/03/2025 Results Follow-Up [facility] [address], [place] [address] Jeni Garcia MD Urinalysis, Complete, with Reflex to Culture 09/03/2025 Results Follow-Up [facility] [address] [place] [address] Jeni Garcia MD Complete Blood Count Manual Diff, Comprehensive Metabolic Panel, Lactate Dehydrogenase (LD) 09/03/2025 Orders Only [facility] [address] [place] [address] Jeni Garcia MD 09/03/2025 Travel 09/02/2025 Telephone [facility] [address], [place] [address] Jeni Garcia MD chart prep 08/21/2025 Refill [facility] [address] [place] [address] Jeni Garcia MD 07/22/2025 1:30 PM EDT Office Visit [facility] [address], [place] [address] Jeni Garcia MD Hypotension, unspecified hypotension type (Primary Dx); Gastrointestinal hemorrhage with melena; Primary hypertension 07/22/2025 Telephone [facility] [address], [place] [address] Jeni Garcia MD Chart prep 07/22/2025 Telephone [facility] [address] [place] [address] Jeni Garcia MD Nurse Triage 07/22/2025 Telephone [facility] [address] [place] [address] Jeni Garcia MD 07/22/2025 Travel 07/21/2025 Refill [facility] [address], [place] [address] Jeni Garcia MD 07/05/2025 Telephone [facility] [address] [facility] [place] [address] Ying Mosquera, RN Nurse Triage 07/05/2025 Travel 06/26/2025 Refill [facility] [address], [place] [address] Jeni Garcia MD 06/25/2025 Refill [facility] [address], [place] [address] Jeni Garcia MD 06/25/2025 Refill [facility] [address] [place] [address] Jeni Garcia MD 06/24/2025 10:00 AM EDT Office Visit [facility] [place] [address] Jeni Garcia MD Chest wall contusion, right, subsequent encounter (Primary Dx); Gastroesophageal reflux disease, unspecified whether esophagitis present; Meningioma (CMS/HCC); Prediabetes; Coronary artery disease of pechanga artery of pechanga heart with stable angina pectoris (CMS/HCC); Chronic obstructive pulmonary disease, unspecified COPD type (CMS/HCC); Superior mesenteric artery stenosis (CMS/HCC) 06/24/2025 Results Follow-Up [facility] [place] [address] Jeni Garcia MD POCT Hgb A1c, POCT Glucose, CBC auto differential, Additional followed-up results: 2 06/24/2025 Refill [facility] [place] [address] Jeni Garcia MD 06/24/2025 Travel 06/21/2025 Telephone [facility] [place] [address] Jeni Garcia MD Chart Prep 06/20/2025 Orders Only [facility] [address] [place] [address] Jeni Garcia MD Hypertension (Primary Dx) 06/18/2025 Telephone [facility] [address] [place] [address] Jeni Garcia MD ER Follow-up 06/13/2025 Refill [facility] [address], [place] [phone] Jeni Garcia MD 06/12/2025 Refill [facility] [address], [place] [phone] Jeni Garcia MD Primary hypertension from Last 3 Months Immunizations Immunization Administration Dates Next Due Hep B, adult 12/13/1994,03/04/1994,02/02/1994 Influenza injectable quadriv alent preservative free 12/12/2023,09/23/2021,08/23/2019,07/14 Influenza, High Dose Seasona l, Preservative Free 09/03/2025,07/28/2017 Influenza, IIV3, injectable 08/29/2020,1 10/23/2018,07/28/2017,07/14,07/13/2010 Influenza, Split (incl. kassandra fied surface antigen) 10/26/2013 Influenza, trivalent, adjuvanted 07/22/2022,08/17 MMR 01/11/1994 Pfizer Covid-19 Vaccine 12+ 09/03/2025 Pneumococcal Conjugate PCV 13 09/08/2015 Pneumococcal Conjugate [...] Sign Reading Time Taken Comments Blood Pressure 140/78 09/03/2025 12:25 PM EST Pulse 63 09/03/2025 12:08 PM EST Temperature 36.3 C (97.4 F) 09/03/2025 12:08 PM EST Respiratory Rate 14 09/03/2025 12:08 PM EST Oxygen Saturation 98% 09/03/2025 12:08 PM EST Inhaled Oxygen Concentration - - Weight 69.9 kg (154 lb) 09/03/2025 12:08 PM EST Height 151 cm (4' 11.45 ) 09/03/2025 12:08 PM ES T Body Mass Index 30.64 09/03/2025 12:08 PM EST Plan of Treatment Upcoming Encounters Date Type Department Care Team (Late st Contact Info) Description 10/25/2025 11:30 AM EST Medication Management [address] [address] Margarita Baumann, PharmD [address] [place] [phone] 10/30/2025 10:30 AM EST Office Visit [address] [address] Jeni Garcia MD [address] [place] [phone] 12/05/2025 11:15 AM EST Office Visit [address] [address] Jeni Garcia MD [address] [place] [phone] Health Maintenance Due Date Last Done Comments Zoster Vaccines (1 of 2) 03/19/2015 01/22/2015 RSV Patients and Patients Aged 60 years or older (1 - 1-dose 75+ series) 2018 Dental Oral Exam 05/14/2025 11/13/2024, 05/2024, 11/11/2022 Dental Prophylaxis 05/14/2025 11/13/2024, 0 05/24/2024, 11/11/2022 Dental X-Ray: Bitewings 05/25/2025 05/24/2024, 11/11 Depression Monitoring 10/19/2025 04/18/2025, 025 SDOH Screening 02/08/2026 02/08/2025 COVID-19 Vaccine (5 - Moderna risk season) 2026 09/03/2025, 09/23/2021, 12/30/2020, Additional history exists Alcohol/Substance Use Screening 04/18/2026 04/18/2025 Diabetes: Hemoglobin A1C 06/24/2026 025, 11/25/2023, 08/19/2023, Additional history exists Tobacco Screening 09/03/2026 09/03/2025 Dental X-Ray: Full Mouth 05/25/2027 05/24/2024 Lipid Panel 02/16/2028 02/15/2023, 06/0 12/2021, 01/28/2021 DTaP/Tdap/Td Vaccines (3 - Td or Tdap) 12/12/2033 12/12/2023, 06/01/2011, 02/23/1999, Additional history exists Hepatitis B Vaccines Completed 12/13/1994, 03/04/1994, 02/02/1994 Pneumococcal Vaccine: 50+ Years Completed 10/31/2023, 10/05/2016, 09/08/2015, Additional history exists Influenza Vaccine Completed 09/03/2025, , 07/22/2022, Additional history exists HIB Vaccines Aged Out [...] Procedure Name Priority Date/Time Associated Diagnosis Comments LD Routine 09/03/2025 11:32 AM EST COMPREHENSIVE METABOLIC PANEL Routine 09/03/2025 11:32 AM EST COMPLETE BLOOD COUNT MAN DIF Routine 09/03/2025 11:32 AM EST CBC WITH AUTO DIFFERENTIAL Routine 09/03/2025 11:32 AM EST Gastrointestinal hemorrhage with melena URINALYSIS, COMPLETE, WITH REFLEX TO CULTURE Routine 09/03/2025 11:32 AM EST Bandemia POCT HEMOGLOBIN Routine 07/22/2025 1:25 PM EDT Hypotension, unspecified hypotension type XR RIBS 2 VIEWS RIGHT Routine 06/24/2025 [...] 10:21 AM EDT Coronary artery disease of pechanga artery of pechanga heart with stable angina pectoris (CMS/HCC) POCT GLYCATED HEMOGLOBIN, TOTAL Routine 06/24/2025 10:20 AM EDT Coronary artery disease of pechanga artery of pechanga heart with stable angina pectoris (CMS/HCC) PROPHYLAXIS - ADULT Routine 11/13/2024 1 :00 PM EST Dental calculus Dental plaque PERIODIC ORAL EVALUATION - ESTABLISHED PATIENT Routine 11/13/2024 1:00 PM EST INTRAORAL - COMPLETE SERIES OF RADIOGRAPHIC IMAGES Routine 05/24/2024 3:00 PM EDT LIPID PANEL WITH REFLEX TO DIRECT LDL Routine 02/15/2023 11:09 AM EDT Primary hypertension from Last 3 Months or Most Recently Relevant to Health Maintenance Results * (ABNORMAL) Complete Blood Count Manual Diff (09/03/2025 11:32 AM EST) White Blood Count 7.6 4.8 - 10.8 X10*3/uL [facility] Red Blood Count 3.68(L) 4.20 - 5.50 X10*6/uL [facility] Hemoglobin 10.1(L) 12.0 - 16.0 g/dl [facility] Hematocrit 32.8(L) 37.0 - 47.0 % [facility] Mean Corpuscular Volume 89.1 80.0 - 98.[address] [facility] Mean Corpuscular Hemoglobin 27.4 27.0 - 33.[address] [facility] Mean Corpuscular HGB Conc 30.8(L) 31.0 - 35.0 g/dl [facility] Red Cell Distribution Width 24.8(H) 11.0 - 16.0 % [facility] Platelet Count 235 160 - 400 X10*3/uL [facility] Mean Platelet Volume 11.0 9.4 - 12.[address] [facility] NRBC Pct Auto 0.0 0.0 - 0.2 /100WBC [facility] NRBC Abs Auto 0.000 0.0 - 0.012 X10*3/uL [facility] Neutrophils % Manual 54 45 - 73 % [facility] Band Neutrophils Percent 0(L) 3 - 5 % [facility] Lymphocytes Percent Manual 24 20 - 40 % [facility] Atypical Lymphs Percent Manual 2 0 - 6 % [facility] Monocytes Percent Manual 5 2 - 11 % [facility] EOSINOPHILS % MANUAL 15(H) 0 - 4 % [facility] NEUTROPHILS ABSOLUTE MANUAL 4.1 2.0 - 8.3 X10*3/uL [facility] LYMPHOCYTES ABSOLUTE MANUAL 1.8 1.2 - 4.9 X10*3/uL [facility] Atypical Lymph Absolute Manual 0.2 x10*3/uL [facility] MONOCYTES ABSOLUTE MANUAL 0.4 0.1 - 1.2 X10*3/uL [facility] EOSINOPHILS ABSOLUTE MANUAL 1.1(H) 0.0 - 0.4 X10*3/uL [facility] Platelet Estimate NORMAL NORMAL [facility] Large Platelet PRESENT [facility] Platelet Morphology Comment NOTED [facility] RBC Morphology NOTED [facility] POLYCHROMASIA 1+ (0-2) /OIF [facility] Hypochromasia 1+ (5-14) /F [facility] Macrocytosis 1+ (5-14) /OIF [facility] Ovalocytes 1+ (5-14) /F [facility] [place] Cells 1+ (0-2) /[facility] 09/03/2025 11:3 2 AM EST 09/03/2025 1:17 PM EST Jeni Garcia MD LAB BLOOD ORDERABLES Fin al Result [facility] [address] [place] [phone] * (ABNORMAL) Urinalysis, Complete, with Reflex to Culture (09/03/2025 11:32 AM EST) Color Urine Yellow [facility] Appearance Urine Clear [facility] PH 7.0 5.0 - 9.[address] [facility] Glucose Urine UA Negative Negative mg/dL [facility] Urine Blood Negative Negative [facility] Specific [place] - Urine 1.010 1.005 - 1.[address] [facility] Urine Protein Negative Neg-Trace mg/dL [facility] Urine Ketones Negative Negative mg/dL [facility] Nitrite Urine Negative Negative [facility] Leukocyte Esterase Urine Trace(A) Negative [facility] RBC Urine 0-2 0 - 2 /HPF [facility] Urine WBC 0-5 0 - 5 /HPF [facility] Urine Squamous Epithelial Cell 0-2 0 - 2 /HPF [facility] Urine Bacteria None Seen None Seen [facility] Hyaline Casts, Urine 0-2 0 - 2 /LPF [facility] Urine 09/03/2025 11:3 2 AM EST 09/03/2025 1:19 PM EST Narrative [facility] - 09/03/2025 1:38 PM EST Urine, Clean Catch us Jeni Garcia MD LAB URINE ORDERABLES Fin al Result [facility] [address] [place] [address] [phone] * (ABNORMAL) CBC auto differential (09/03/2025 11:32 AM EST) Only the most recent of2 resultswithin the time period is included. White Blood Count 7.6 4.8 - 10.8 X10*3/uL [facility] Red Blood Count 3.68(L) 4.20 - 5.50 X10*6/uL [facility] Hemoglobin 10.1(L) 12.0 - 16.0 g/dl [facility] Hematocrit 32.8(L) 37.0 - 47.0 % [facility] Mean Corpuscular Volume 89.1 80.0 - 98.[address] [facility] Mean Corpuscular Hemoglobin 27.4 27.0 - 33.[address] [facility] Mean Corpuscular HGB Conc 30.8(L) 31.0 - 35.0 g/dl [facility] Red Cell Distribution Width 24.8(H) 11.0 - 16.0 % [facility] Platelet Count 235 160 - 400 X10*3/uL [facility] Mean Platelet Volume 11.0 9.4 - 12.[address] [facility] Neutrophils Percent Auto 49.5 45 - 73 % [facility] Imm Gran Pct Auto 0.4 0.0 - 0.4 % [facility] Lymphocytes Percent Auto 18.4(L) 20 - 40 % [facility] Monocytes Percent Auto 8.4 2 - 11 % [facility] Eosinophils Percent Auto 22.5(H) 0 - 4 % [facility] Basophils Percent Auto 0.8 0 - 2 % [facility] NRBC Pct Auto 0.0 0.0 - 0.2 /100WBC [facility] Neutrophils Absolute Auto 3.8 2.0 - 8.3 x10*3/uL [facility] Imm Gran Abs Auto 0.03 0.00 - 0.03 X10*3/uL [facility] Lymphocytes Absolute Auto 1.4 1.2 - 4.9 X10*3/uL [facility] Monocytes Absolute Auto 0.6 0.1 - 1.2 X10*3/uL [facility] Eosinophils Absolute Auto 1.7(H) 0.0 - 0.4 X10*3/uL [facility] Basophils Absolute Auto 0.1 0.0 - 0.2 X10*3/uL [facility] NRBC Abs Auto 0.000 0.0 - 0.012 X10*3/uL [facility] Blood Venous blood specimen / Unknown 09/03/2025 11:32 AM EST 09/03/2025 1:17 PM EST us Jeni Garcia MD LAB BLOOD ORDERABLES Steven sujey Result - Final Performing Organization Address City/[facility]/ZIP Co de Phone Number [facility] [address] [place] [phone] * (ABNORMAL) Lactate Dehydrogenase (LD) (09/03/2025 11:32 AM EST) Lactate Dehydrogenase 311(H) 122 - 220 U/L [facility] 09/03/2025 11:3 2 AM EST 09/03/2025 1:06 PM EST us Generic External Data Provider LAB BLOOD ORDERAB LES Final Result Performing Organization Address [facility]/ZIP Co de Phone Number [facility] [address] [place] [phone] * Comprehensive Metabolic Panel (09/03/2025 11:32 AM EST) Sodium 140 135 - 145 mmol/L [facility] Potassium 4.0 3.3 - 5.1 mmol/L [facility] Chloride 106 96 - 108 mmol/L [facility] Carbon Dioxide 25 22 - 29 mmol/L [facility] Anion Gap 13 12 - [address] [facility] Urea Nitrogen (BUN) 15 9 - 16 mg/dL [facility] Creatinine, Serum 0.96 0.5 - 1.4 mg/dL [facility] Estimated Glomerular Filt Rate [address] [facility] Comment:Chronic Kidney Disea se: Estimated GFR < 60 mL/min/1.76v7Mrdqcm Kidney Disease: Estimated GFR < 15 mL/min/1.73m2 Glucose 99 60 - 115 mg/dL [facility] Calcium 9.5 8.4 - 10.2 mg/dL [facility] Bilirubin, Total 0.3 0.0 - 1.0 mg/dL [facility] Aspartate Amino Transferase 24 5 - 31 U/L [facility] Alanine Aminotransferase 15 0 - 31 U/L [facility] Total Protein 7.3 6.5 - 8.0 g/dL [facility] Albumin Level 4.0 3.5 - 5.0 g/dL [facility] Alkaline Phosphatase 71 39 - 117 U/L [facility] 09/03/2025 11:3 2 AM EST 09/03/2025 1:06 PM EST us Generic External Data Provider LAB BLOOD ORDERAB LES Final Result [facility] [address] [place] [phone] * (ABNORMAL) POCT Hemoglobin (07/22/2025 1:25 PM EDT) Hemoglobin 10.1(A) 12.0 - 15.0 QC Media Lot # [id number] Lot# Expiration Date Blood 07/22/2025 1:25 PM EDT us Jeni Garcia MD POINT OF CARE TEST ENTER /EDIT ORDERABLES Final Result * XR Ribs 2 Views Right (06/24/2025 12:06 PM EDT) Anatomical Region Laterality Modality Rib, Abdomen Right Radiographic Tamiko ging 06/24/2025 12:0 6 PM EDT Narrative 06/24/2025 12:26 PM EDT [address] [id number] XRay Report Signed Patient: Joan Armendariz MR#: [id number] 594 : 1945 Acct:[id number] Age/Sex: 80 / F ADM Date: 06/24/25 Loc: [facility] Attending Dr: Jeni Garcia MD Ordering Physician: Jeni Garcia MD Date of Service: 06/24/25 Procedure(s): XR ribs RT 2V Accession Number(s): [id number] cc: Jeni Garcia MD Reason for Exam: [...] 06/24/25 1223 DD/ 1206 TD/TT: 06/24/25 1206 Financial Auditor: Procedure Note Donotuseinterpreter, Image - 06/24/[address] [address] XRay Report Signed Patient: Joan Armendariz RMR#: [id number] : 1945cct:[id number] Age/Sex: 80 / FADM Date: 06/24/25 Loc: HO.HHCL Attending Dr: Jeni Garcia MD Ordering Physician: Jeni Garcia MD Date of Service: 06/24/25 Procedure(s): XR ribs RT 2V Accession Number(s): [id number] cc: Jeni Garcia MD Reason for Exam: [...] 06/24/25 1223 DD/ 1206 TD/TT: 06/24/25 1206 Financial Auditor: Jeni Garcia MD IMG XR PROCEDURES Edited Result - Final * XR Chest 2 Views (06/24/2025 12:06 PM EDT) Anatomical Region Laterality Modality Chest Radiographic Tamiko ging 06/24/2025 12:0 6 PM EDT Narrative 06/24/2025 12:24 PM EDT [facility] [address] [place] [address] XRay Report Signed Patient: Joan Armendariz MR#: [id number] : 1945 Acct:[id number] Age/Sex: 80 / F ADM Date: 06/24/25 Loc: HO.HHCL Attending Dr: Jeni Garcia MD Ordering Physician: Jeni Garcia MD Date of Service: 06/24/25 Procedure(s): XR chest 2V Accession Number(s): [id number] cc: Jeni Garcia MD Reason for Exam: [...] spondylosis and scoliosis.. Electronically signed by: Jose Sinhg MD 06/24/2025 12:21 PM EDT Dictated By: Jose Juarez MD Signed By: <Electronically signed by Jose Msoquera MD in OV> 06/24/25 1221 DD/ 1206 TD/TT: 06/24/25 1206 Financial Auditor: Procedure Note Donotuseinterpreter, Image - 06/24/[address] [address] XRay Report Signed Patient: Joan Armendariz RMR#: [id number] : 1945cct:[id number] Age/Sex: 80 / FADM Date: 06/24/25 Loc: .HHCL Attending Dr: Jeni Garcia MD Ordering Physician: Jeni Garcia MD Date of Service: 06/24/25 Procedure(s): XR chest 2V Accession Number(s): [id number] cc: Jeni Garcia MD Reason for Exam: [...] 06/24/25 1221 DD/ 1206 TD/TT: 06/24/25 1206 Financial Auditor: Jeni Garcia MD IMG XR PROCEDURES Edited Result - Final * POCT Glucose (06/24/2025 10:21 AM EDT) Glucose Blood, POC 123 60 - 200 mg/dL QC Media Lot # [id number] Lot# Expiration Date Blood Capillary blood specimen / Unknown 06/24/2025 [...] TEST ENTER /EDIT ORDERABLES Final Result * Lipid Panel with Reflex to Direct LDL (02/15/2023 11:09 AM EDT) Pathologist [facility] Cholesterol, Total 141 <200 mg/dL [facility] HDL Cholesterol 54 > OR = 50 mg/dL [facility] [place] [facility] Triglycerides 99 <150 mg/dL [facility] [place] [facility] LDL Cholesterol 69 mg/dL (calc) [facility] Comment: Reference range: <100 Desirable range <100 mg/dL for primary prevention; <70 mg/dL for patients with CHD or diabetic patients with > or = 2 CHD risk factors. LDL-C is now calculated using the Bebeto-Casandra calculation, which is a validated novel method providing better accuracy than the Friedewald equation in the estimation of LDL-C. Bebeto CANO et al. PARIS. 2013;310(19): 4473-4459 (http://education.Bonfaire.Compete/faq/AFB023) Chol/HDLC Ratio 2.6 <5.0 (calc) [facility] Non-HDL Cholesterol 87 <130 mg/dL (calc) [facility] Comment: For patients with diabetes plus 1 major ASCVD risk factor, treating to a non-HDL-C goal of <100 mg/dL (LDL-C of <70 mg/dL) is considered a therapeutic option. 02/15/2023 11:0 9 AM EDT 02/15/2023 11:10 AM EDT Narrative [facility] - 02/16/2023 2:24 AM EDT FASTING:NO FASTING: NO Jeni Garcia MD LAB BLOOD ORDERABLES Fin al Result [facility] [address], [place] [address] [facility] [address] [place] [address] from Last 3 Months or Most Recently Relevant to Health Maintenance Insurance [facility] DUAL COMPLETE [facility] STANDARD DENTAL - [facility] Care Teams Automatic Equipment Technician Relationship Specialty Start Date End Date Jeni Garcia MD [address] [place] [phone] PCP - General Family Medicine 12/16/15
--- OUTSIDE RECORDS SUMMARY | 2025-09-09 11:32 | XMS_ITS | Encounter Summary ---
Author Organization [employer] Address [address] [place] [address] 7 [place] [address] Care Team Providers Care Water Control Station Engineer Name Role Phone Jeni Garcia MD Primary Care Provider + Reason for Visit * Reason Onset Date Comments Call Back Request 01/02/2025 Encounter Details Date Type Department Care Team ([facility] Contact Info) Description 01/02/2025 Telephone [facility] [address] [place], [place] [phone] Jeni Garcia MD [address] [place], [place] [phone] Call Back Request Social History Tobacco Use [...] visit because they dohave another appt prior. Lamination Inspector did inform them on 15 min mao period but forwarding message as anFYI. Please contact Daughter at [phone]. documented in this encounter Plan of Treatment Upcoming Encounters Date Type Department Care Team (Late st Contact Info) Description 10/25/2025 11:30 AM EST Medication Management [facility] [address] [place] [phone] Margarita Baumann, PharmD [address] [place] [address] 10/30/2025 10:30 AM EST Office Visit [facility] [address] [place] [phone] Jeni Garcia MD [address] [place] [address] [phone] 12/05/2025 11:15 AM EST Office Visit [facility] [address] [place] [address] [phone] Jeni Garcia MD [address] [place] [address] documented as of this encounter Visit Diagnoses Not on filedocumented in this encounter Additional Health Concerns Assessment Noted Time PHQ-9 Depression Total Score: 0 11/16/19 23 10:53 AM EST documented as of this encounter Care Teams Water Control Station Engineer Relationship Specialty Start Date End Date Jeni Garcia MD [address] [place] [address] [phone] PCP - General Family Medicine 12/16/15 documented as of this encounter
== END 2025-09-09 09:48 | disposition home or self-care (01) ==
LOC: HO.XRAY 09:47
PROVIDERS: PCP Internal Medicine; Visit Provider Hospitalist
DX: R13.10 Dysphagia, unspecified (principal)
CPT/HCPCS: 74221

== ENCOUNTER → 2025-09-09 09:50 | Outpatient (BNV) | payer OTHER, SELFPAY | PROVIDERS: PCP Internal Medicine; Visit Provider Radiology Diagnostic Radiology | DX: R13.10 Dysphagia, unspecified (principal) | CPT/HCPCS: 74221 ==

== ENCOUNTER 2025-09-27 11:52 | Emergency (ER) | payer OTHER, SELFPAY ==
--- NOTE | ~2025-09-27 | XR_ITS ---
EXAMINATION: XR CHEST CLINICAL INFORMATION: pain COMPARISON: 09/27/2025 TECHNIQUE: 2 views of the chest were obtained. FINDINGS: Reverse arthroplasty is noted in the left shoulder. There is small focal calcification near the greater tuberosity in the right shoulder. Heart size is within normal limits. Linear densities seen in the left mid third lung zone and left lung base. No pneumothorax is identified. No pleural effusion is evident. Kyphoplasty has been performed in the lower thoracic vertebral body. There is mild to moderate degenerative changes throughout the thoracic spine. XR/XR chest 2V IMPRESSION: Scarring and or minimal atelectasis in the mid to lower left lung. No acute disease otherwise. Possible calcific tendinitis involving the right shoulder. Reverse arthroplasty, left shoulder. Electronically signed by: Wild Saleh MD 09/27/2025 12:57 PM MASHA ORDONEZ
--- NOTE | ~2025-09-27 | XR_ITS ---
EXAMINATION: XR SHOULDER, LEFT CLINICAL INFORMATION: pain COMPARISON: April 15, 2021 TECHNIQUE: AP external rotation, Grashey, scapular Y, and axillary views of the left shoulder. 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 No abnormal lucency is evident along bone metal interfaces. There is no dislocation. AC joint is intact. There is a somewhat linear nodular density in the left middle third lung zone laterally that appeared similar on the prior study 4 years ago. XR/XR shoulder LT min 2V IMPRESSION: Unremarkable left shoulder status post reverse arthroplasty. Electronically signed by: Wild Saleh MD 09/27/2025 12:52 PM EST
--- NOTE | 2025-09-27 11:54 | ECG_ITS ---
Test Reason : cp Blood Pressure : */* mmHG Vent. Rate : 63 BPM Atrial Rate : 63 BPM P-R Int : 166 ms QRS Dur : 80 ms QT Int : 404 ms P-R-T Axes : 40 6 40 degrees QTcB Int : 413 ms Normal sinus rhythm Normal ECG When compared with ECG of 05-Jun-2025 14:27, No significant change was found Referred By: Alison Gaytan Electronically Signed By: RYAN GRIFFITHS MD
[2025-09-27 12:13] VITALS: BP 141/69; PULSE 62; RESP 18; TEMP 36.8; O2SAT 99; BMI 32.6
--- NOTE | 2025-09-27 12:13 | ED.GENADULT ---
HPI - General Adult General Chief complaint: Chest Pain Stated complaint: chest pain Time Seen by Provider: 09/27/25 17:27 Source: patient and [employer] web[employer] consultant Limitations: language barrier (Saira) History of Present Illness HPI narrative: 80-year-old female who has a history of COPD, hypertension, AK, asthma, presents for evaluation of left-sided neck, and upper back and shoulder pain. Patient states symptoms began gradually last night. When they 1st began she tried Tylenol which offered only some relief. When she woke this morning she had increased pain. She reports pressure and pulling, particularly in the left upper back by her shoulder. She denies any strenuous activity. No trauma. No paresthesias or paralysis. No history of similar symptoms. She is otherwise feeling well. She receives B12 infusions with her last infusion earlier today. Related Data Home Medications ?Medication ?Instructions ?Recorded ?Confirmed inhalational spacing device #1 ea 07/16/20 09/27/25 nebulizers 10/28/22 09/27/25 aspirin 81 mg tablet,delayed 81 mg PO DAILY 01/28/25 09/27/25 release atorvastatin 80 mg tablet 80 mg PO BEDTIME 01/28/25 09/27/25 clopidogrel 75 mg tablet 75 mg PO DAILY 01/28/25 09/27/25 famotidine 20 mg tablet 20 mg PO DAILY 01/28/25 09/27/25 nitroglycerin 0.4 mg sublingual 0.4 mg sublingual NEEDED PRN 01/28/25 09/27/25 tablet Chest Pain carvedilol 6.25 mg tablet 6.25 mg PO BID 05/28/25 09/27/25 cholecalciferol (vitamin D3) 125 125 mcg PO MOTH 05/28/25 09/27/25 mcg (5,000 unit) capsule fluticasone propionate 50 2 spray intranasal DAILY PRN 05/28/25 09/27/25 mcg/actuation nasal Allergy Symptoms spray,suspension lactulose 10 gram/15 mL oral 15 ml PO DAILY PRN constipation 05/28/25 09/27/25 solution levothyroxine 50 mcg tablet 50 mcg PO DAILY@0600 05/28/25 09/27/25 methotrexate sodium 2.5 mg tablet 20 mg PO MO 05/28/25 09/27/25 Previous Rx's ?Medication ?Instructions ?Recorded back brace #1 ea 07/11/24 folic acid 1 mg tablet 1 mg PO DAILY #90 tabs 07/04/25 methocarbamol 500 mg tablet 500 mg PO TID PRN muscle pain #14 09/27/25 tabs Allergies Allergy/AdvReac Type Severity Reaction Status Date / Time codeine (CODEINE) Allergy Mild Rash Verified 09/27/25 12:16 morphine (MORPHINE) Allergy Mild Hallucinati Verified 09/27/25 12:16 ons oxycodone (Percocet) Allergy Mild Hives Verified 09/27/25 12:16 tramadol AdvReac Severe Headache Verified 09/27/25 12:16 Review of Systems Review of Systems: Yes all other systems are reviewed and are negative Constitutional: Constitutional: Denies headache(s) ENT: Denies facial pain, Denies headache(s) and Denies nasal discharge Gastrointestinal: Gastrointestinal: Denies abdominal pain and Denies GI cramping Musculoskeletal: Musculoskeletal: Reports back pain Neurologic: Denies headache(s) [facility] Past Medical History Medical History Fracture of vertebra due to osteoporosis with delayed healing 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 Renal artery stenosis Open broken tooth due to trauma without complication Exercise counseling Dietary counseling Vitamin D deficiency Sciatica associated with disorder of lumbar spine Meralgia paresthetica of right side Calculus of lower urinary tract Venous insufficiency of leg Tendinitis of right rotator cuff Sleep apnea Rheumatoid arthritis, adult Primary osteoarthritis of both knees Prediabetes Osteopenia Neck pain Heel pain Greater trochanteric pain syndrome Eosinophil count raised Edema of lower extremity Degeneration of lumbar intervertebral disc BMI 35.0-35.9,adult Chronic low back pain Eczema Calcaneal spur Angle-closure glaucoma Hypothyroidism Abnormal gait Iron deficiency anemia secondary to blood loss (chronic) GERD (gastroesophageal reflux disease) COPD (chronic obstructive pulmonary disease) Hypertension Myocardial infarction Dysphagia Pleural effusion Cellulitis Limb swelling Chest pain Asthma Chronic allergic rhinitis Atelectasis of left lung Surgical History Hx of hand surgery Hx of cholecystectomy Hx of appendectomy History of back surgery History of left shoulder replacement Hx of shoulder replacement History of total right knee replacement (TKR) Family History Family History Father Lung cancer Mother Throat cancer Social History Social History Household Members: Family Housing: House Do you presently have visiting nurse or other home services: Yes (health system) Patient Tobacco Use Status: Former Tobacco user Tobacco use type: Cigarette Years Smoked: 4 years Smoked in Last 30 Days: No Use of substances other than those prescribed or required for medical reasons: No Advance Directives: Yes Advance Directives on File: Yes Advance Directives Date on File: 05/29/25 service: No Current occupational status: disabled Current occupational exposures/hazards: No Physical Exam ED Vital Signs: Vital Signs - 24 hr 09/27/25 12:13 09/27/25 17:13 09/27/25 21:00 Temperature 98.2 F 98.3 F 97.9 F Pulse Rate 62 64 63 Respiratory Rate 18 18 20 Blood Pressure 141/69 H 141/63 H 155/63 H Pulse Oximetry 99 98 97 Oxygen Delivery Method Room Air Room Air Room Air 09/27/25 21:28 Temperature 97.9 F Pulse Rate 63 Respiratory Rate 20 Blood Pressure 155/63 H Pulse Oximetry 97 Oxygen Delivery Method Room Air BMI result Body Mass Index 32.6 Const General: cooperative, alert and awake Neck Other: No spinous, paraspinous or paravertebral tenderness. There is tenderness to the left trapezius muscles Neck: No positive Brudzinski's sign Resp Effort & Inspection: normal respiratory effort Auscultation: clear to auscultation bilaterally Cardio Rate: regular rate Rhythm: regular rhythm GI Other: abdomen is soft and nontender. No peritoneal signs. Extrem Other: Therapeutic Massage Technician is 5/5 bilaterally. There is full range of motion of upper and lower extremities. There is diffuse tenderness along the left trapezius and subscapular muscles. Worse with twisting. There was no skin changes in this region. Course Course Course Narrative: Rapid medical examination performed in triage by Alison Gaytan PA-C: Patient is an 80 year old assigned female at presenting to the emergency department with left shoulder and chest pain. Patient states that over the last day she has had left sided shoulder and chest pain. Detailed physical exam and review of systems are deferred to the certified legal investigator. EKG, labs, imaging ordered. Patient placed back in the waiting room pending room availability and results. Reevaluation(s) Reevaluation #1: 6:15 p.m., labs at baseline. X-rays also without any acute process. 7:00 p.m. patient's daughter has arrived at the bedside. I have provided an update of all labs and imaging results. Awaiting trial of Robaxin. Confirms that the patient lives at home with her in an in-law apartment. She uses a cane and walker to ambulate. There was no known trauma. She does have a history of fibromyalgia and arthritis. 7:45 p.m. Reviewed all labs and imaging and discussed plan with Dr. Corona who agrees with plan. 8:45 p.m. patient reports significant improvement in symptoms. The patient and daughter feel comfortable with discharge plan home. The daughter we will continue to monitor the patient. They expresses understanding of all discharge instructions and have no further questions at this time. Medications Administered Discontinued Medications Generic Name Dose Route Start Last Admin Trade Name Freq PRN Reason Stop Dose Admin Acetaminophen 975 mg 09/27/25 15:17 09/27/25 17:11 Acetaminophen 325 Mg Tablet PO 09/27/25 15:18 975 mg ONCE ONE Administration Methocarbamol 500 mg 09/27/25 18:31 09/27/25 19:27 Methocarbamol 500 Mg Tablet PO 09/27/25 18:32 500 mg ONCE ONE Administration Medical Decision Making Medical Decision Making [facility] Narrative: 80-year-old female with a history of anemia, peripheral artery disease, asthma, presents for evaluation of left-sided neck and upper back pain. Symptoms are easily reproducible. She has not had any respiratory symptoms. There was no chest pain. She denies any trauma. Check labs, imaging. Differential Diagnosis Differential Diagnoses: The differential diagnosis associated with the presentation includes Dissection ACS Musculoskeletal strain Nerve impingement Muscle spasm Pneumonia Admission/Observation Consideration of admission/observation: Escalation of care including admission/observation considered Lab Data [facility] Lab Attestation statement: I reviewed the patient's lab results. 09/27/25 12:28 09/27/25 17:48 Labs: Lab Results 09/27/25 09/27/25 Range/Units 12: 17:48 WBC 6.7 (4.8-10.8) X10*3/uL RBC 3.80 L (4.20-5.50) X10*6/uL Hgb 11.0 L (12.0-16.0) g/dl Hct 35.7 L (37.0-47.0) % MCV 93.9 (80.0-98.0) fL MCH 28.9 (27.0-33.0) pg MCHC 30.8 L (31.0-35.0) g/dl RDW 20.1 H (11.0-16.0) % Plt Count 152 L D (160-400) X10*3/uL MPV 11.5 (9.4-12.3) fL Immature Gran % (Auto) 0.3 (0.0-0.4) % Neut % (Auto) 61.8 (45-73) % Lymph % (Auto) 21.6 (20-40) % [place] % (Auto) 6.3 (2-11) % Eos % (Auto) 9.1 H (0-4) % Baso % (Auto) 0.9 (0-2) % Lymph # (Auto) 1.5 (1.2-4.9) X10*3/uL [place] # (Auto) 0.4 (0.1-1.2) X10*3/uL Eos # (Auto) 0.6 H (0.0-0.4) X10*3/uL Baso # (Auto) 0.1 (0.0-0.2) X10*3/uL Abs Immat Gran (auto) 0.02 (0.00-0.03) X10*3/uL Absolute Neuts (auto) 4.2 (2.0-8.3) x10*3/uL Absolute Nucleated RBC 0.000 (0.0-0.012) X10*3/uL Nucleated RBC % (auto) 0.0 (0.0-0.2) /100WBC Sodium 139 (135-145) mmol/L Potassium 3.9 (3.3-5.1) mmol/L Chloride 105 (96-108) mmol/L Carbon Dioxide 25 (22-29) mmol/L Anion Gap 13 (12-20) BUN 13 (9-16) mg/dL Creatinine 0.91 (0.5-1.4) mg/dL Estim Creat Clear Calc 41.5 Estimated GFR 59 Random Glucose 103 (60-115) mg/dL Calcium 9.3 (8.4-10.2) mg/dL Total Bilirubin 0.6 (0.0-1.0) mg/dL AST 20 (5-31) U/L ALT 12 (0-31) U/L Alkaline Phosphatase 67 (39-117) U/L Troponin I High Sens 2.7 (<3.5-17.0) ng/L Total Protein 7.2 (6.5-8.0) g/dL Albumin 3.9 (3.5-5.0) g/dL Independent Interpretation I performed an independent interpretation of an: EKG Radiology Impression Discussion of test interpretation with radiology: I have reviewed the radiologist's reading. Prescription Management I considered prescription management with: Pain Medication Discharge Plan Discharge Clinical Impression: Muscle strain of left upper back Qualifiers: Encounter type: initial encounter Qualified Code(s): S29.012A - Strain of muscle and tendon of back wall of thorax, initial encounter Patient Disposition: Home, Self-Care Instructions: Muscle Strain (ED) Additional Instructions: Rest. Avoid strenuous activity. Continue warm compresses to the affected area. You may continue medicated patches to the affected area. Robaxin as directed. This medication may make you drowsy. Follow-up with your primary care provider. Call this week to schedule a follow-up appointment. Return to the emergency department if you have any worsening of symptoms, or any concerns. Get well soon! Prescriptions: New methocarbamol 500 mg tablet 500 mg PO TID PRN (Reason: muscle pain) Qty: 14 0RF No Action folic acid 1 mg Tablet 1 mg PO DAILY Qty: 90 1RF carvedilol 6.25 mg tablet 6.25 mg PO BID levothyroxine 50 mcg tablet 50 mcg PO DAILY@0600 fluticasone propionate 50 mcg/actuation spray,suspension 2 spray intranasal DAILY PRN (Reason: Allergy Symptoms) cholecalciferol (vitamin D3) 125 mcg (5,000 unit) capsule 125 mcg PO MOTH lactulose 10 gram/15 mL solution 15 ml PO DAILY PRN (Reason: constipation) methotrexate sodium 2.5 mg tablet 20 mg PO MO Rx Instructions: TAKE 8 TABLETS ONCE WEEKLY (DME) inhalational spacing device Spacer See Rx Instructions .ROUTE DIRECTED Qty: 1 Rx Instructions: As directed (DME) nebulizers Misc See Rx Instructions .Route Rx Instructions: As directed nitroglycerin 0.4 mg tablet, sublingual 0.4 mg sublingual NEEDED PRN (Reason: Chest Pain) famotidine 20 mg tablet 20 mg PO DAILY aspirin 81 mg tablet,delayed release (DR/EC) 81 mg PO DAILY clopidogrel 75 mg tablet 75 mg PO DAILY atorvastatin 80 mg tablet 80 mg PO BEDTIME (DME) back brace Misc See Rx Instructions .Route Qty: 1 0RF Rx Instructions: As directed Interventions: ED Discharge Assessment Last Done: 09/27/25 21:28 Discharge Date/Time: 09/27/25 21:32 Print Language: Hong Konger
[2025-09-27 12:32] LABS: MANUAL DIFF FLAG NO
[2025-09-27 12:37] LABS: Hematocrit 35.7 % (37.0-47.0); Hemoglobin 11.0 g/dl (12.0-16.0); Imm Gran Abs Auto 0.02 X10*3/uL (0.00-0.03); Imm Gran Pct Auto 0.3 % (0.0-0.4); Lymphocytes Absolute Auto 1.5 X10*3/uL (1.2-4.9); Mean Corpuscular HGB Conc 30.8 g/dl (31.0-35.0); Mean Corpuscular Hemoglobin 28.9 pg (27.0-33.0); Mean Corpuscular Volume 93.9 fL (80.0-98.0); NRBC Abs Auto 0.000 X10*3/uL (0.0-0.012); NRBC Pct Auto 0.0 /100WBC (0.0-0.2); Platelet Count 152 X10*3/uL (160-400); Red Blood Count 3.80 X10*6/uL (4.20-5.50); White Blood Count 6.7 X10*3/uL (4.8-10.8)
[2025-09-27 13:18] LABS: Troponin-I High Sensitivity 2.7 ng/L (<3.5-17.0)
[2025-09-27 17:13] VITALS: BP 141/63; PULSE 64; RESP 18; TEMP 36.8; O2SAT 98
[2025-09-27 18:09] LABS: Alanine Aminotransferase 12 U/L (0-31); Albumin Level 3.9 g/dL (3.5-5.0); Alkaline Phosphatase 67 U/L (39-117); Anion Gap 13 (12-20); Aspartate Amino Transferase 20 U/L (5-31); Blood Urea Nitrogen 13 mg/dL (9-16); Calcium 9.3 mg/dL (8.4-10.2); Carbon Dioxide 25 mmol/L (22-29); Chloride 105 mmol/L (96-108); Creatinine Clr Calc Pharmacy 41.5; Estimated Glomerular Filt Rate 59; Potassium 3.9 mmol/L (3.3-5.1); Sodium 139 mmol/L (135-145); Total Protein 7.2 g/dL (6.5-8.0)
--- NOTE | 2025-09-27 19:35 | PC.NURSE ---
assumed care of pt, daughter at bedside. pt reports 3/10 pain in L shoulder and up L side of neck,Tylenol helped some. Respirations even and unlabored. Pain is increased with movement.
--- OUTSIDE RECORDS SUMMARY | 2025-09-27 20:46 | XMS_ITS | Encounter Summary ---
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 [address] [facility] [address] [place] [address] Phone: tel: fax: Referral ID Status Reason Start Date Expiration Date V isits Requested Visits Authorized [id number] Closed Specialty Services Required 06/13/2024 06/13/2025 1 1 Encounter Details Date Type Department Care Team (Late st Contact Info) Description 06/13/2024 Orders Only [facility] [address] [place], [place] [phone] Jeni Garcia MD [address] [place], [place] [phone] Renal artery stenosis (CMS/HCC); Superior mesenteric artery [...] Care Team (Late st Contact Info) Description 10/30/2025 10:30 AM EST Office Visit [facility] [address] [place] [address] Jeni Garcia MD [address] [place] [address] 11/01/2025 9:00 AM EST Medication Management [address] [address] Margarita Baumann, Alonso [address] [place] [address] 12/05/2025 11:15 AM EST Office Visit [facility] [address] [place] [address] Jeni Garcia MD [address] [place] [address] Scheduled Referrals Name Type Priority Associated Diagnoses [...] PM EDT Narrative 06/28/2024 4:28 PM EDT [facility] [address] [place] [address] XRay Report Signed Patient: Joan Armendariz MR#: [id number] : 1945 Acct:[id number] Age/Sex: 79 / F ADM Date: 06/28/24 Loc: .ED Attending Dr: Ordering Physician: Geovanna [place] Date of Service: 06/28/24 Procedure(s): XR lumbar spine 2-3V Accession Number(s): [id number] cc: Jeni Garcia MD; Geovanna [place] EXAMINATION: [...] 06/28/24 1625 DD/ 1600 TD/TT: 06/28/24 1615 Date Pitter: Procedure Note Donotuseinterpreter, Image - 06/28/[address] [address] XRay Report Signed Patient: Joan Armendariz RMR#: [id number] : 1945cct:[id number] Age/Sex: 79 / FADM Date: 06/28/24 Loc: .ED Attending Dr: Ordering Physician: Geovanna [place] Date of Service: 06/28/24 Procedure(s): XR lumbar spine 2-3V Accession Number(s): [id number] cc: Jeni Garcia MD; Geovanna [place] EXAMINATION: [...] 06/28/24 1625 DD/ 1600 TD/TT: 06/28/24 1615 Date Pitter: [facility] External Provider IMG XR PROCEDURES Final Result * XR Chest 1 View (06/28/2024 12:52 PM EDT) Anatomical Region Laterality Modality Chest Radiographic Tamiko ging 06/28/2024 12:5 2 PM EDT Narrative 06/28/2024 3:02 PM EDT [address] [address] XRay Report Signed Patient: Joan Armendariz MR#: [id number] : 1945 Acct:[id number] Age/Sex: 79 / F ADM Date: 06/28/24 Loc: HO.ED Attending Dr: Ordering Physician: Geovanna [place] Date of Service: 06/28/24 Procedure(s): XR chest 1V Accession Number(s): [id number] cc: Jeni Garcia MD; Geovanna [place] EXAMINATION: [...] 06/28/24 1459 DD/ 1252 TD/TT: 06/28/24 1259 Date Pitter: BETH Procedure Note Donotuseinterpreter, Image - 06/28/2024 [place] [address] XRay Report Signed Patient: Joan Armendariz RMR#: [id number] : 1945cct:[id number] Age/Sex: 79 / FADM Date: 06/28/24 Loc: .ED Attending Dr: Ordering Physician: Geovanna [place] Date of Service: 06/28/24 Procedure(s): XR chest 1V Accession Number(s): [id number] cc: Jeni Garcia MD; Geovanna [place] EXAMINATION: [...] 06/28/24 1459 DD/ 1252 TD/TT: 06/28/24 1259 Date Pitter: BETH Authorpamela Provider Result Type Result Stat [facility] External Provider IMG XR PROCEDURES Final [...] of this encounter Care Teams Nursing Home Admissions Director Relationship Specialty Start Date End Date Jeni Garcia MD [address] [place] [address] PCP - General Family Medicine 12/16/15 documented as of this encounter
--- OUTSIDE RECORDS SUMMARY | 2025-09-27 20:46 | XMS_ITS | Clinical Summary ---
Author Organization 175 [facility] Address 175 [place] [address] Phone Care Team Providers Care Instrumentation Engineer Name Role Phone Jeni Garcia MD Primary Care Provider + [phone] Allergies Active Allergy Reactions Criticality Noted Date [...] osteoarthritis of left knee 01/02 Myocardial infarction 01/02/2025 S/P angioplasty with stent 01/02/2025 Status post total right knee replacement 025 Cholelithiasis 12/03/2024 CKD (chronic kidney disease), stage [...] PM EDT Office Visit Orthopedic Surgery - [place] 250 175 [facility] [address] [place] [phone] Eloisa Torres NP Post-traumatic osteoarthritis of left knee (Primary Dx) from Last 3 Months Surgical History Surgery Date Site/Laterality Comments SHOULDER SURGERY 01/06/2023 Left PROCEDURE: HISTORICAL SHOULDER SURGERY; COMMENT: RTSA Medical History Medical History Date Comments Heart attack (CMS/HCC V24, CMS/HCC V28) 12/22/19 25 DURING A CRUISE Social History Tobacco Use [...] AM EST Office Visit Orthopedic Surgery - [place] [address] [phone] Lazaro Saleh MD [address] [address] Health Maintenance Due Date Last Done Comments [...] patient's age to complete this topic Insurance MEDICAID - [place] [employer] MEDICARE Advance Directives Documents on File Type Date Recorded Patient Lacing Cutter Expl anation Health Care Decision (hx) 03/27/2019 [...] (hx) 03/27/2019 AD CEJA DIRECTIVE Care Teams Instrumentation Engineer Relationship Specialty Start Date End Date Jeni Garcia MD [address] [place] [phone] PCP - General 05/19/21
--- OUTSIDE RECORDS SUMMARY | 2025-09-27 20:46 | XMS_ITS | Encounter Summary ---
Author Organization [employer] Address [address] [place] [address] 7t [place] [address] Care Team Providers Care Cloud Solutions Architect Name Role Phone Jeni Garcia MD Primary Care Provider + Reason for Visit * Reason Onset Date Comments DR MAK 05/31/2025 Encounter Details Date Type Department Care Team ([facility] st Contact Info) Description 05/31/2025 Telephone [facility] ADULT DENTAL [address] [place], [place] [phone] Carie Phelps, DDS [address] [place], [place] [phone] DR MAK Social History Tobacco Use Types [...] can return the call to her at [phone] documented in this encounter Plan of Treatment Upcoming Encounters Date Type Department Care Team (Late st Contact Info) Description 10/30/2025 10:30 AM EST Office Visit [address] [address] Jeni Garcia MD [address] [place] [address] 11/01/2025 9:00 AM EST Medication Management [facility] MED[facility]INE [address] [place] [phone] Margarita Baumann, XinD [address] [place] [phone] 12/05/2025 11:15 AM EST Office Visit [address] [address] Jeni Garcia MD 230 [place] [address] documented as of this encounter Visit Diagnoses Not on filedocumented in this encounter Additional Health Concerns Assessment Noted Time PHQ-9 Depression Total Score: 9 04/18/20 25 11:57 AM EDT documented as of this encounter Care Teams Cloud Solutions Architect Relationship Specialty Start Date End Date Jeni Garcia MD 230 [place] [address] PCP - General Family Medicine 12/16/15 documented as of this encounter
--- OUTSIDE RECORDS SUMMARY | 2025-09-27 20:46 | XMS_ITS | Encounter Summary ---
Author Organization [employer] Address [address] [place] [address] 7 [place] [address] Care Team Providers Care Syrup Maker Cook Name Role Phone Jeni Garcia MD Primary Care Provider + Encounter Details Date Type Department Care Team (Latest Contact Info) Description 04/28/2021 Abstract [facility] CONVERSIONS Dental, Provider, DDS Social [...] Care Team ( st Contact Info) Description 10/30/2025 10:30 AM EST Office Visit [address] [address] Jeni Garcia MD [address] [place] [address] 11/01/2025 9:00 AM EST Medication Management [facility] MED[facility]INE [address] [place] [phone] Margarita Baumann, PharmD [address] [place] [address] 12/05/2025 11:15 AM EST Office Visit [facility] [address] [place] [phone] Jeni Garcia MD [address] [place] [address] documented as of this encounter Visit Diagnoses Not on filedocumented in this encounter Care Teams Syrup Maker Cook Relationship Specialty Start Date End Date Jeni Garcia MD [address] [place] [address] PCP - General Family Medicine 12/16/15 documented as of this encounter
--- OUTSIDE RECORDS SUMMARY | 2025-09-27 20:46 | XMS_ITS | Encounter Summary ---
Author Organization [employer] Address [address] [place] [address] 7t [place] [address] Care Team Providers Care Pot Maker Name Role Phone Jeni Garcia MD Primary Care Provider + Encounter Details Date Type Department Care Team ([facility] Contact Info) Description 04/04/2023 Orders Only [facility] [address] [place] [address] [phone] Jeni Garcia MD [address] [place] [address] [phone] Social History Tobacco Use Types Packs/Day Years [...] Upcoming Encounters Date Type Department Care Team ([facility] Contact Info) Description 10/30/2025 10:30 AM EST Office Visit [facility] [address] [place] [phone] Jeni Garcia MD 230 [place] [address] 11/01/2025 9:00 AM EST Medication Management [facility] [address] [place] [phone] Margarita Baumann, PharmD 230 [place] [address] 12/05/2025 11:15 AM EST Office Visit [facility] [address] [place] [phone] Jeni Garcia MD [address] [place] [address] documented as of this encounter Visit Diagnoses Not on filedocumented in this encounter Additional Health Concerns Assessment Noted Time PHQ-9 Depression Total Score: 0 11/16/19 23 10:53 AM EST documented as of this encounter Care Teams Pot Maker Relationship Specialty Start Date End Date Jeni Garcia MD [address] [place] [address] PCP - General Family Medicine 12/16/15 documented as of this encounter
--- OUTSIDE RECORDS SUMMARY | 2025-09-27 20:46 | XMS_ITS | Encounter Summary ---
Author Organization [employer] Address [address] [place] [address] 7t [place] [address] Care Team Providers Care Grinder Machine Knife Setter Name Role Phone Jeni Garcia MD Primary Care Provider + Encounter Details Date Type Department Care Team (Late Contact Info) Description 02/25/2023 Orders Only [facility] MED[facility] [address] [place] [address] [phone] Jeni Garcia MD [address] [place] [phone] Obstructive sleep apnea syndrome (Primary Dx) Social [...] Department Care Team (Late Contact Info) Description 10/30/2025 10:30 AM EST Office Visit [facility] [address] [place] [address] Jeni Garcia MD 230 [place] [address] 11/01/2025 9:00 AM EST Medication Management [address] [address] Margarita Baumann, PharmD [address] [place] [address] 12/05/2025 11:15 AM EST Office Visit [address] [phone] Jeni Garcia MD [address] [place] [address] documented as of this encounter Visit Diagnoses Diagnosis Obstructive sleep apnea syndrome- Primary Obstructive sleep apnea (adult) (pediatric) documented in this encounter Additional Health Concerns Assessment Noted Time PHQ-9 Depression Total Score: 0 11/16/19 23 10:53 AM EST documented as of this encounter Care Teams Grinder Machine Knife Setter Relationship Specialty Start Date End Date Jeni Garcia MD [address] [place] [address] PCP - General Family Medicine 12/16/15 documented as of this encounter
--- OUTSIDE RECORDS SUMMARY | 2025-09-27 20:46 | XMS_ITS | Encounter Summary ---
Author Organization [employer] Address [address] [facility] 7t [place] [address] Care Team Providers Care Supervisor Nuclear Medicine Name Role Phone Jeni Garcia MD Primary Care Provider + Reason for Visit * Reason Comments Med Refill Encounter Details Date Type Department Care Team (Late st Contact Info) Description 03/04/2025 Refill [facility] 230 [place], [place] [phone] Jeni Garcia MD 230 [place], [place] [phone] Social History Tobacco Use Types Packs/Day Years [...] Description 10/30/2025 10:30 AM EST Office Visit [address] [address] Jeni Garica MD [address] [place] [address] 11/01/2025 9:00 AM EST Medication Management [address] [address] Margarita Baumann, PharmD [address] [place] [phone] 12/05/2025 11:15 AM EST Office Visit [address] [address] Jeni Garcia MD [address] [place] [address] documented as of this encounter Visit Diagnoses Not on filedocumented in this encounter Additional Health Concerns Assessment Noted Time PHQ-9 Depression Total Score: 0 11/16/19 23 10:53 AM EST documented as of this encounter Care Teams Supervisor Nuclear Medicine Relationship Specialty Start Date End Date Jeni Garcia MD [address] [place] [phone] PCP - General Family Medicine 12/16/15 documented as of this encounter
--- OUTSIDE RECORDS SUMMARY | 2025-09-27 20:46 | XMS_ITS | Encounter Summary ---
Author Organization [employer] Address [address] [place] [address] 7t [place] [address] Care Team Providers Care Healthcare Prof Name Role Phone Jeni Garcia MD Primary Care Provider + Reason for Visit * Reason Onset Date Comments C Pap 02/22/2023 Encounter Details Date Type Department Care Team ([facility] st Contact Info) Description 02/22/2023 Telephone [facility] MED[facility] 230 [place], [place] [phone] Jeni Garcia MD [address] [place], [place] [phone] C Pap Social History Tobacco Use Types [...] If any questions please contact pt at [phone] (frisian speaking) * Telephone Encounter - Temi Bojorquez - 02/22/2023 2:44 PM EDT Tc from Pt requesting a script for Cpap Machine talk on appt on 02/15 with provider. Pt give fax number to send script to [facility] # [phone]. PCP Dr. Garcia documented in this encounter Plan of Treatment Upcoming Encounters Date Type Department Care Team (Late st Contact Info) Description 10/30/2025 10:30 AM EST Office Visit [address] [address] Jeni Garcia MD [address] [place] [address] 11/01/2025 9:00 AM EST Medication Management [address] [address] Margarita Baumann, PharmD [address] [place] [address] 12/05/2025 11:15 AM EST Office Visit [address] [address] Jeni Garcia MD [address] [place] [phone] documented as of this encounter Visit Diagnoses Not on filedocumented in this encounter Additional Health Concerns Assessment Noted Time PHQ-9 Depression Total Score: 0 11/16/19 23 10:53 AM EST documented as of this encounter Care Teams Healthcare Prof Relationship Specialty Start Date End Date Jeni Garcia MD [address] [place] [phone] PCP - General Family Medicine 12/16/15 documented as of this encounter
--- OUTSIDE RECORDS SUMMARY | 2025-09-27 20:46 | XMS_ITS | Encounter Summary ---
Author Organization [employer] Address [address] [place] [address] [address], [place] [address] Care Team Providers Care Bindery Machine Feeder Offbearer Name Role Phone Jeni Garcia MD Primary Care Provider + Encounter Details Date Type Department Care Team (Late st Contact Info) Description 09/27/2022 [facility] Health Information Management [address] [place] [address] [phone] Jeni Garcia MD [address] [place] [address] [phone] Social History Tobacco Use Types Packs/Day Years [...] Description 10/30/2025 10:30 AM EST Office Visit [address] [address] Jeni Garcia MD [address] [place] [address] [phone] 11/01/2025 9:00 AM EST Medication Management [address] [address] Margarita Baumann, PharmD [address] [place] [address] 12/05/2025 11:15 AM EST Office Visit [facility] [address] [place] [address] [phone] Jeni Garcia MD [address] [place] [address] [phone] documented as of this encounter Visit Diagnoses Not on filedocumented in this encounter Care Teams Bindery Machine Feeder Offbearer Relationship Specialty Start Date End Date Jeni Garcia MD [address] [place] [address] [phone] PCP - General Family Medicine 12/16/15 documented as of this encounter
--- OUTSIDE RECORDS SUMMARY | 2025-09-27 20:46 | XMS_ITS | Encounter Summary ---
Author Organization [employer] Address [address] [place] [address] 7t [place] [address] Care Team Providers Care Informatics Nurse Name Role Phone Jeni Garcia MD Primary Care Provider + Reason for Referral * Consultation (Routine) - Authorized Specialty Diagnoses / Procedures Referred By Contac t Referred To Contact Pharmacy Diagnoses Hypertension Antonia Harper MD 230 [place] [address] Phone: tel: fax: Referral ID Status Reason Start Date Expiration Date Visits Requested Visits Authorized [id number] Authorized Continuity of Care 06/20/2025 06/20/2026 6 6 Encounter Details Date Type Department Care Team (Late st Contact Info) Description 06/20/2025 Orders Only [facility] MED[facility] 230 [place], [place] [phone] Jeni Garcia MD [address] [place], [place] [phone] Hypertension (Primary Dx) Social History Tobacco Use [...] Description 10/30/2025 10:30 AM EST Office Visit [address] [address] Jeni Garcia MD [address] [place] [address] 11/01/2025 9:00 AM EST Medication Management [address] [address] Margarita Baumann, XinD [address] [place] [address] 12/05/2025 11:15 AM EST Office Visit [address] [address] Jeni Garcia MD [address] [place] [address] Scheduled Referrals Name Type Priority Associated Diagnoses Orde r Schedule Referral to Pharmacy [place] Outpatient Referral Routine Hypertension Ordered: 06/20/2025 documented as of this encounter Visit Diagnoses Diagnosis Hypertension- Primary Unspecified essential hypertension documented in this encounter Additional Health Concerns Assessment Noted Time PHQ-9 Depression Total Score: 9 04/18/20 25 11:57 AM EDT documented as of this encounter Care Teams Informatics Nurse Relationship Specialty Start Date End Date Jeni Garcia MD [address] [place] [address] PCP - General Family Medicine 12/16/15 documented as of this encounter
--- OUTSIDE RECORDS SUMMARY | 2025-09-27 20:46 | XMS_ITS | Encounter Summary ---
Author Organization [employer] Address [address] [place] [address] Care Team Providers Care Drop Wire Stringer Name Role Phone Jeni Garcia MD Primary Care Provider + Encounter Details Date Type Department Care Team (Late st Contact Info) Description 09/27/2025 Orders Only GENERIC EXTERNAL DATA DEPARTMENT Provider, [...] Description 10/30/2025 10:30 AM EST Office Visit [address] [address] Jeni Garcia MD [address] [place] [id number] 11/01/2025 9:00 AM EST Medication Management [address] [address] Margarita Baumann, PharmD [address] [place] [phone] 12/05/2025 11:15 AM EST Office Visit [address] [address] Jeni Garcia MD [address] [place] [phone] documented as of this encounter Procedures Procedure Name Priority Date/Time Associated Diagnosis Comments COMPREHENSIVE METABOLIC PANEL Routine 09/27/2025 5:48 PM EST XR SHOULDER 2+ VIEWS LEFT Routine 09/27/2025 12:35 PM EST XR CHEST 2 VIEWS Routine 09/27/2025 12:3 3 PM EST HIGH SENSITIVITY TROPONIN I Routine 09/27/2025 12:28 PM EST CBC WITH AUTO DIFFERENTIAL Routine 09/27/2025 12:28 PM EST documented in this encounter Results * Comprehensive Metabolic Panel (09/27/2025 5:48 PM EST) Sodium 139 135 - 145 mmol/L [facility] Potassium 3.9 3.3 - 5.1 mmol/L [facility] Chloride 105 96 - 108 mmol/L [facility] Carbon Dioxide 25 22 - 29 mmol/L [facility] Anion Gap 13 12 - 20 [facility] Urea Nitrogen (BUN) 13 9 - 16 mg/dL [facility] Creatinine, Serum 0.91 0.5 - 1.4 mg/dL [facility] Creatinine Clr Calc Pharmacy 41.5 [facility] Comment:Provided height and weight: 149.86 cm,73.3 kg.eGFR (calculated from the MDRD study equation) and eCrCl(calculated from the Cockcroft-Gault equation) are based ondifferent parameters and may not yield comparable results.If eCrCl result is absurd, please check patient'sheight/weight. Estimated Glomerular Filt Rate 59 [facility] Comment:Chronic Kidney Disea se: Estimated GFR < 60 mL/min/1.02e7[place] Kidney Disease: Estimated GFR < 15 mL/min/1.73m2 Glucose 103 60 - 115 mg/dL [facility] Calcium 9.3 8.4 - 10.2 mg/dL [facility] Bilirubin, Total 0.6 0.0 - 1.0 mg/dL [facility] Aspartate Amino Transferase 20 5 - 31 U/L [facility] Alanine Aminotransferase 12 0 - 31 U/L [facility] Total Protein 7.2 6.5 - 8.0 g/dL [facility] Albumin Level 3.9 3.5 - 5.0 g/dL [facility] Alkaline Phosphatase 67 39 - 117 U/L [facility] 09/27/2025 5:48 PM EST 09/27/2025 5:52 PM EST us Generic External Data Provider LAB BLOOD ORDERAB LES Final Result [facility] [address] [place] [phone] * XR Shoulder 2+ Views Left (09/27/2025 12:35 PM EST) Anatomical Region Laterality Modality Upper Extremities, Shoulder Left Radi ographic Imaging 09/27/2025 12:3 5 PM EST Narrative 09/27/2025 12:55 PM EST [address] [address] XRay Report Signed Patient: Joan Armendariz MR#: [id number] : 1945 Acct:[id number] Age/Sex: 80 / F ADM Date: 09/27/25 Loc: HO.ED Attending Dr: Ordering Physician: Alison Gaytan Date of Service: 09/27/25 Procedure(s): XR shoulder LT min 2V Accession Number(s): [id number] cc: Jeni Garcia MD; Alison Gaytan Reason for Exam: pain EXAMINATION: XR SHOULDER, LEFT CLINICAL INFORMATION: pain COMPARISON: April 15, 2021 TECHNIQUE: AP external rotation, Grashey, scapular Y, and axillary views of the left shoulder. 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 No abnormal lucency is evident along bone metal interfaces. There is no dislocation. AC joint is intact. There is a somewhat linear nodular density in the left middle third lung zone laterally that appeared similar on the prior study 4 years ago. XR/XR shoulder LT min 2V IMPRESSION: Unremarkable left shoulder status post reverse arthroplasty. Electronically signed by: Wild Saleh MD 09/27/2025 12:52 PM EST Dictated By: Wild Saleh MD Signed By: <Electronically signed by Wild Saleh MD in OV> 12/12/25 1252 DD/ 1235 TD/TT: 09/27/25 1238 Creative Services Specialist: Procedure Note Bertramter, Image - 09/27/[address] [address] XRay Report Signed Patient: Joan Armendariz RMR#: [id number] : 1945cct:[id number] Age/Sex: 80 / FADM Date: 09/27/25 Loc: HO.ED Attending Dr: Ordering Physician: Alison Gaytan Date of Service: 09/27/25 Procedure(s): XR shoulder LT min 2V Accession Number(s): [id number] cc: Jeni Garcia MD; Alison Gaytan Reason for Exam: pain EXAMINATION: XR SHOULDER, LEFT CLINICAL INFORMATION: pain COMPARISON: April 15, 2021 TECHNIQUE: AP external rotation, Grashey, scapular Y, and axillary views of the left shoulder. 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 No abnormal lucency is evident along bone metal interfaces. There is no dislocation. AC joint is intact. There is a somewhat linear nodular density in the left middle third lung zone laterally that appeared similar on the prior study 4 years ago. XR/XR shoulder LT min 2V IMPRESSION: Unremarkable left shoulder status post reverse arthroplasty. Electronically signed by: Wild Saleh MD 09/27/2025 12:52 PM EST Dictated By: Wild Saleh MD Signed By: <Electronically signed by Wild Saleh MD in OV> 09/27/25 1252 DD/ 1235 TD/TT: 09/27/25 1238 Creative Services Specialist: [facility] External Provider IMG XR PROCEDURES Final Result * XR Chest 2 Views (09/27/2025 12:33 PM EST) Anatomical Region Laterality Modality Chest Radiographic Tamiko ging 09/27/2025 12:3 3 PM EST Narrative 09/27/2025 1:00 PM EST [address] [address] XRay Report Signed Patient: Joan Armendariz MR#: [id number] : 1945 Acct:[id number] Age/Sex: 80 / F ADM Date: 09/27/25 Loc: HO.ED Attending Dr: Ordering Physician: Alison Gaytan Date of Service: 09/27/25 Procedure(s): XR chest 2V Accession Number(s): [id number] cc: Jeni Garcia MD; Alison Gaytan Reason for Exam: pain EXAMINATION: XR CHEST CLINICAL INFORMATION: pain COMPARISON: 09/27/2025 TECHNIQUE: 2 views of the chest were obtained. FINDINGS: Reverse arthroplasty is noted in the left shoulder. There is small focal calcification near the greater tuberosity in the right shoulder. Heart size is within normal limits. Linear densities seen in the left mid third lung zone and left lung base. No pneumothorax is identified. No pleural effusion is evident. Kyphoplasty has been performed in the lower thoracic vertebral body. There is mild to moderate degenerative changes throughout the thoracic spine. XR/XR chest 2V IMPRESSION: Scarring and or minimal atelectasis in the mid to lower left lung. No acute disease otherwise. Possible calcific tendinitis involving the right shoulder. Reverse arthroplasty, left shoulder. Electronically signed by: Wild Saleh MD 09/27/2025 12:57 PM EST Dictated By: Wild Saleh MD Signed By: <Electronically signed by Wild Saleh MD in OV> 09/27/25 1257 DD/ 1233 TD/TT: 09/27/25 1238 Creative Services Specialist: Procedure Note Bertramter, Image - 09/27/[address] [address] XRay Report Signed Patient: Joan Armendariz RMR#: [id number] : 1945cct:[id number] Age/Sex: 80 / FADM Date: 09/27/25 Loc: HO.ED Attending Dr: Ordering Physician: Alison Gaytan Date of Service: 09/27/25 Procedure(s): XR chest 2V Accession Number(s): [id number] cc: Jeni Garcia MD; Alison Gaytan Reason for Exam: pain EXAMINATION: XR CHEST CLINICAL INFORMATION: pain COMPARISON: 09/27/2025 TECHNIQUE: 2 views of the chest were obtained. FINDINGS: Reverse arthroplasty is noted in the left shoulder. There is small focal calcification near the greater tuberosity in the right shoulder. Heart size is within normal limits. Linear densities seen in the left mid third lung zone and left lung base. No pneumothorax is identified. No pleural effusion is evident. Kyphoplasty has been performed in the lower thoracic vertebral body. There is mild to moderate degenerative changes throughout the thoracic spine. XR/XR chest 2V IMPRESSION: Scarring and or minimal atelectasis in the mid to lower left lung. No acute disease otherwise. Possible calcific tendinitis involving the right shoulder. Reverse arthroplasty, left shoulder. Electronically signed by: Wild Saleh MD 09/27/2025 12:57 PM EST Dictated By: Wild Saleh MD Signed By: <Electronically signed by Wild Saleh MD in OV> 09/27/25 1257 DD/ 1233 TD/TT: 09/27/25 1238 Creative Services Specialist: [facility] External Provider IMG XR PROCEDURES Final Result * High Sensitivity Troponin I (09/27/2025 12:28 PM EST) TROPONIN I HIGH SENSITIVITY 2.7 <3.5 - 17.0 ng/L [facility] Comment:The [place] high sens itivity Troponin-I results should beused in conjunction with other diagnostic information suchas ECG, clinical observations and information, and patientsymptoms to aid in the diagnosis of [place]. 09/27/2025 12:2 8 PM EST 09/27/2025 12:31 PM EST us Generic External Data Provider LAB BLOOD ORDERAB LES Final Result [facility] [address], [place] [phone] * (ABNORMAL) CBC auto differential (09/27/2025 12:28 PM EST) White Blood Count 6.7 4.8 - 10.8 X10*3/uL [facility] Red Blood Count 3.80(L) 4.20 - 5.50 X10*6/uL [facility] Hemoglobin 11.0(L) 12.0 - 16.0 g/dl [facility] Hematocrit 35.7(L) 37.0 - 47.0 % [facility] Mean Corpuscular Volume 93.9 80.0 - 98.0 fL [facility] Mean Corpuscular Hemoglobin 28.9 27.0 - 33.0 pg [facility] Mean Corpuscular HGB Conc 30.8(L) 31.0 - 35.0 g/dl [facility] Red Cell Distribution Width 20.1(H) 11.0 - 16.0 % [facility] Platelet Count 152(L) 160 - 400 X10*3/uL [facility] Mean Platelet Volume 11.5 9.4 - 12.3 fL [facility] Neutrophils Percent Auto 61.8 45 - 73 % [facility] Imm Gran Pct Auto 0.3 0.0 - 0.4 % [facility] Lymphocytes Percent Auto 21.6 20 - 40 % [facility] Monocytes Percent Auto 6.3 2 - 11 % [facility] Eosinophils Percent Auto 9.1(H) 0 - 4 % [facility] Basophils Percent Auto 0.9 0 - 2 % [facility] NRBC Pct Auto 0.0 0.0 - 0.2 /100WBC [facility] Neutrophils Absolute Auto 4.2 2.0 - 8.3 x10*3/uL [facility] Imm Gran Abs Auto 0.02 0.00 - 0.03 X10*3/uL [facility] Lymphocytes Absolute Auto 1.5 1.2 - 4.9 X10*3/uL [facility] Monocytes Absolute Auto 0.4 0.1 - 1.2 X10*3/uL [facility] Eosinophils Absolute Auto 0.6(H) 0.0 - 0.4 X10*3/uL [facility] Basophils Absolute Auto 0.1 0.0 - 0.2 X10*3/uL [facility] NRBC Abs Auto 0.000 0.0 - 0.012 X10*3/uL [facility] 09/27/2025 12:2 8 PM EST 09/27/2025 12:31 PM EST us Generic External Data Provider LAB BLOOD ORDERAB LES Final Result Performing Organization Address City/State/[facility] de Phone Number [facility] [address] [place] [phone] documented in this encounter Visit Diagnoses Not on filedocumented in this encounter Additional Health Concerns Assessment Noted Time PHQ-9 Depression Total Score: 9 04/18/20 25 11:57 AM EDT documented as of this encounter Care Teams Drop Wire Stringer Relationship Specialty Start Date End Date Jeni Garcia MD [address] [place] [phone] PCP - General Family Medicine 12/16/15 documented as of this encounter
--- OUTSIDE RECORDS SUMMARY | 2025-09-27 20:46 | XMS_ITS | Clinical Summary ---
Author Organization [employer] Address [address] [place] [address] Care Team Providers Care New Grad Rn Name Role Phone Jeni Garcia MD [...] BEDTIME NEEDED FOR PAIN 100 g Active carvedilol (Coreg) 6.25 MG tabletIndications :Primary hypertension TAKE 1 TABLET BY MOUTH WITH BREAKFAST AND 1 WITH EVENING MEAL 180 tablet Active carvedilol (Coreg) 6.25 MG tabletIndications :Primary hypertension TAKE 1 TABLET BY MOUTH WITH BREAKFAST AND 1 WITH EVENING MEAL 180 tablet 2024 Discontinued nitrofurantoin, macrocrystal-mono hydrate, (Macrobid) 100 MG capsule Take 1 capsule (100 mg) by mouth 2 times daily for 7 days. 14 capsule 2024 Active Problems Problem Noted Date Diagnosed [...] and follow-up with me next month Meningioma ([facility]) 06/24/2025 Assessment & Plan (06/24/2025 6:18 [...] (05/28/2025 11:33 AM EDT): Case presented to [facility] [place], patient went through EMS Hematoma of groin 04/18/2025 Assessment & Plan (04/18/2025 3:27 PM EDT): On catheterization site. Patient is improving, advised to put ice on affected area Iron supplementation is off for now due to constipation and GERD symptoms, she will restart iron supplementation in 1 week and follow-up hemoglobin in 3 months Coronary artery disease invo [place]ving [place] coronary artery of [place] heart 01/03/2025 Overview (09/03/2025): S/P NSTEMI + PTCA to RCA on 11/2023 in [place] while in a Cruise Assessment & Plan [...] Singulair and albuterol as needed Follow-up with express manager Assessment & Plan (01/03/2025 1:36 PM [...] rest at home. FU on Tuesday with Local Tanker Truck Driver. Will call tomorrow for health status check. [...] exercise, life style modifications, diet, referral to payroll tax specialist. Discussed re lower calorie intake, increase [...] Encounters Date Type Department Care Team Description 09/27/2025 Orders Only GENERIC EXTERNAL DATA DEPARTMENT Provider, Generic External Data 09/05/[address] [address] Jeni Garcia MD preop 09/04/2025 Refill [facility] [place] [address] Mimi Yao MD Primary hypertension 09/03/2025 11:45 AM EST Office Visit [facility] [place] [address] Jeni Garcia MD Primary hypertension (Primary Dx); Memory impairment; Encounter for immunization; Coronary artery disease involving [place] coronary artery of [place] heart without angina pectoris 09/03/2025 Results Follow-Up [facility] [address] [place] [address] Jeni Garcia MD Urinalysis, Complete, with Reflex to Culture 09/03/2025 Results Follow-Up [facility] [address] [place] [address] Jeni Garcia MD Complete Blood Count Manual Diff, Comprehensive Metabolic Panel, Lactate Dehydrogenase (LD) 09/03/2025 Orders Only [facility] [place] [address] Jeni Garcia MD 09/03/2025 Travel 09/02/2025 Telephone [facility] [place] [address] Jeni Garcia MD chart prep 08/21/2025 Refill [facility] [place] [address] Jeni Garcia MD 07/22/2025 1:30 PM EDT Office Visit [facility] [place] [place], [place] [address] Jeni Garcia MD Hypotension, unspecified hypotension type (Primary Dx); Gastrointestinal hemorrhage with melena; Primary hypertension 07/22/2025 Telephone [facility] [place] [address] Jeni Garcia MD Chart prep 07/22/2025 Telephone [facility] [address] [place] [address] Jeni Garcia MD Nurse Triage 07/22/2025 Telephone [facility] [address] [place] [address] Jeni Garcia MD 07/22/2025 Travel 07/21/2025 Refill [facility] [address] [place] [address] Jeni Garcia MD 07/05/2025 Telephone [facility] [address] [place] [address] Ying Mosquera, RN Nurse Triage 07/05/2025 Travel from Last 3 Months Immunizations Immunization Administration [...] Description 10/30/2025 10:30 AM EST Office Visit [facility] [address] [place] [phone] Jeni Garcia MD [address] [place] [address] 11/01/2025 9:00 AM EST Medication Management [address] [address] Margarita Baumann, PharmD [address] [place] [phone] 12/05/2025 11:15 AM EST Office Visit [address] [address] Jeni Garcia MD [address] [place], [place] [phone] Health Maintenance Due Date Last Done Comments [...] AUTO DIFFERENTIAL Routine 09/27/2025 12:28 PM EST FL ESOPHAGUS BARIUM SWALLOW WITH AIR Routine 09/09/2025 10:02 AM EST LD Routine 09/03/2025 11:32 AM EST COMPREHENSIVE METABOLIC PANEL Routine 09/03/2025 11:32 AM EST COMPLETE BLOOD COUNT MAN DIF Routine 09/03/2025 11:32 AM EST CBC WITH AUTO DIFFERENTIAL Routine 09/03/2025 11:32 AM EST Gastrointestinal hemorrhage with melena URINALYSIS, COMPLETE, WITH REFLEX TO CULTURE Routine 09/03/2025 11:32 AM EST Bandemia POCT HEMOGLOBIN Routine 07/22/2025 1:25 PM EDT Hypotension, unspecified hypotension type AMB REFERRAL TO HEMATOLOGY / ONCOLOGY Routine 07/19/2025 Iron deficiency anemia due to chronic blood loss POCT GLYCATED HEMOGLOBIN, TOTAL Routine 06/24/2025 10:20 AM EDT Coronary artery disease of [place] artery of [place] heart with stable angina pectoris ([facility]) PROPHYLAXIS - ADULT Routine 11/13/2024 1 :00 PM EST Dental calculus Dental plaque PERIODIC ORAL EVALUATION - ESTABLISHED PATIENT Routine 11/13/2024 1:00 PM EST INTRAORAL - COMPLETE SERIES OF RADIOGRAPHIC IMAGES Routine 05/24/2024 3:00 PM EDT LIPID PANEL WITH REFLEX TO DIRECT LDL Routine 02/15/2023 11:09 AM EDT Primary hypertension from Last 3 Months or Most Recently Relevant to Health Maintenance Results * Comprehensive Metabolic Panel (09/27/2025 5:48 PM EST) Only the most recent of2 resultswithin the time period is included. Sodium 139 135 - 145 mmol/L [facility] Potassium 3.9 3.3 - 5.1 mmol/L [facility] Chloride 105 96 - 108 mmol/L [facility] Carbon Dioxide 25 22 - 29 mmol/L [facility] Anion Gap 13 12 - 20 [facility] Urea Nitrogen (BUN) 13 9 - 16 mg/dL [facility] Creatinine, Serum 0.91 0.5 - 1.4 mg/dL [facility] Creatinine Clr Calc Pharmacy 41.5 [facility] Comment:Provided height and weight: 149.86 cm,73.3 kg.eGFR (calculated from the MDRD study equation) and eCrCl(calculated from the Cockcroft-Gault equation) are based ondifferent parameters and may not yield comparable results.If eCrCl result is absurd, please check patient'sheight/weight. Estimated Glomerular Filt Rate 59 [facility] Comment:Chronic Kidney Disea se: Estimated GFR < 60 mL/min/1.45l5Dzvffc Kidney Disease: Estimated GFR < 15 mL/min/1.73m2 Glucose 103 60 - 115 mg/dL [facility] Calcium 9.3 8.4 - 10.2 mg/dL [facility] Bilirubin, Total 0.6 0.0 - 1.0 mg/dL [facility] Aspartate Amino Transferase 20 5 - 31 U/L [facility] Alanine Aminotransferase 12 0 - 31 U/L [facility] Total Protein 7.2 6.5 - 8.0 g/dL [facility] Albumin Level 3.9 3.5 - 5.0 g/dL [facility] Alkaline Phosphatase 67 39 - 117 U/L [facility] 09/27/2025 5:48 PM EST 09/27/2025 5:52 PM EST us Generic External Data Provider LAB BLOOD ORDERAB LES Final Result [facility] [address] [place] [phone] * XR Shoulder 2+ Views Left (09/27/2025 12:35 PM EST) Anatomical Region Laterality Modality Upper Extremities, Shoulder Left Radi ographic Imaging 09/27/2025 12:3 5 PM EST Narrative 09/27/2025 12:55 PM EST [address] [address] XRay Report Signed Patient: Joan Armendariz MR#: [id number] : 1945 Acct:[id number] Age/Sex: 80 / F ADM Date: 09/27/25 Loc: HO.ED Attending Dr: Ordering Physician: Alison Gaytan Date of Service: 09/27/25 Procedure(s): XR shoulder LT min 2V Accession Number(s): [id number] cc: Jeni Garcia MD; Alison Gaytan Reason [...] 09/27/25 1252 DD/ 1235 TD/TT: 09/27/25 1238 Charity Fundraiser: Procedure Note Donotuseinterpreter, Image - 09/27/[address] [address] XRay Report Signed Patient: Joan Armendariz RMR#: [id number] : 1945cct:[id number] Age/Sex: 80 / FADM Date: 09/27/25 Loc: HO.ED Attending Dr: Ordering Physician: Alison Gaytan Date of Service: 09/27/25 Procedure(s): XR shoulder LT min 2V Accession Number(s): [id number] cc: Jeni Garcia MD; Alison Gaytan Reason [...] Wild Saleh MD 09/27/2025 12:52 PM EST RP Dictated By: Wild Saleh MD Signed By: <Electronically signed by Wild Saleh MD in OV> 09/27/25 1252 DD/ 1235 TD/TT: 09/27/25 1238 Charity Fundraiser: [facility] External Provider IMG XR PROCEDURES Final Result * XR Chest 2 Views (09/27/2025 12:33 PM EST) Anatomical Region Laterality Modality Chest Radiographic Tamiko ging 09/27/2025 12:3 3 PM EST Narrative 09/27/2025 1:00 PM EST [address] [address] XRay Report Signed Patient: Joan Armendariz MR#: [id number] : 1945 Acct:[id number] Age/Sex: 80 / F ADM Date: 09/27/25 Loc: HO.ED Attending Dr: Ordering Physician: Alison Gaytan Date of Service: 09/27/25 Procedure(s): XR chest 2V Accession Number(s): [id number] cc: Jeni Garcia MD; Alison Gaytan Reason [...] by: Wild Saleh MD 09/27/2025 12:57 PM [facility] Dictated By: Wild Saleh MD Signed By: <Electronically signed by Wild Saleh MD in OV> 09/27/25 1257 DD/ 1233 TD/TT: 09/27/25 1238 Charity Fundraiser: Procedure Note Donotuseinterpreter, Image - 09/27/2025 [place] [address] XRay Report Signed Patient: Joan Armendariz RMR#: [id number] : 1945cct:[id number] Age/Sex: 80 / FADM Date: 09/27/25 Loc: HO.ED Attending Dr: Ordering Physician: Alison Gaytan Date of Service: 09/27/25 Procedure(s): XR chest 2V Accession Number(s): [id number] cc: Jeni Garcia MD; Alison Gaytan Reason [...] Wild Saleh MD 09/27/2025 12:57 PM EST RP Dictated By: Wild Saleh MD Signed By: <Electronically signed by Wild Saleh MD in OV> 09/27/25 1257 DD/ 1233 TD/TT: 09/27/25 1238 Charity Fundraiser: [facility] External Provider IMG XR PROCEDURES Final Result * High Sensitivity Troponin I (09/27/2025 12:28 PM EST) [facility] TROPONIN I HIGH SENSITIVITY 2.7 <3.5 - 17.0 ng/L [facility] Comment:The [place] high sens itivity Troponin-I results should beused in conjunction with other diagnostic information suchas ECG, clinical observations and information, and patientsymptoms to aid in the diagnosis of MD. 09/27/2025 12:2 8 PM EST 09/27/2025 12:31 PM EST Generic External Data Provider LAB BLOOD ORDERAB LES Final Result [facility] [address] [place] [phone] * (ABNORMAL) CBC auto differential (09/27/2025 12:28 PM EST) Only the most recent of2 resultswithin the time period is included. [facility] White Blood Count 6.7 4.8 - 10.8 X10*3/uL [facility] Red Blood Count 3.80(L) 4.20 - 5.50 X10*6/uL [facility] Hemoglobin 11.0(L) 12.0 - 16.0 g/dl [facility] Hematocrit 35.7(L) 37.0 - 47.0 % [facility] Mean Corpuscular Volume 93.9 80.0 - 98.0 fL [facility] Mean Corpuscular Hemoglobin 28.9 27.0 - 33.0 pg [facility] Mean Corpuscular HGB Conc 30.8(L) 31.0 - 35.0 g/dl [facility] Red Cell Distribution Width 20.1(H) 11.0 - 16.0 % [facility] Platelet Count 152(L) 160 - 400 X10*3/uL [facility] Mean Platelet Volume 11.5 9.4 - 12.3 fL [facility] Neutrophils Percent Auto 61.8 45 - 73 % [facility] Imm Gran Pct Auto 0.3 0.0 - 0.4 % [facility] Lymphocytes Percent Auto 21.6 20 - 40 % [facility] Monocytes Percent Auto 6.3 2 - 11 % [facility] Eosinophils Percent Auto 9.1(H) 0 - 4 % [facility] Basophils Percent Auto 0.9 0 - 2 % [facility] NRBC Pct Auto 0.0 0.0 - 0.2 /100WBC [facility] Neutrophils Absolute Auto 4.2 2.0 - 8.3 x10*3/uL [facility] Imm Gran Abs Auto 0.02 0.00 - 0.03 X10*3/uL [facility] Lymphocytes Absolute Auto 1.5 1.2 - 4.9 X10*3/uL [facility] Monocytes Absolute Auto 0.4 0.1 - 1.2 X10*3/uL [facility] Eosinophils Absolute Auto 0.6(H) 0.0 - 0.4 X10*3/uL [facility] Basophils Absolute Auto 0.1 0.0 - 0.2 X10*3/uL [facility] NRBC Abs Auto 0.000 0.0 - 0.012 X10*3/uL [facility] 09/27/2025 12:2 8 PM EST 09/27/2025 12:31 PM EST us Generic External Data Provider LAB BLOOD ORDERAB LES Final Result [facility] [address] [place] [phone] * FL Esophagus Barium Swallow w/Air (09/09/2025 10:02 AM EST) Anatomical Region Laterality Modality Head, Neck Radiographic Tamiko ging 09/09/2025 10:0 2 AM EST Narrative 09/09/2025 2:45 PM EST [address] [address] Fluoroscopy Report Signed Patient: Joan Armendariz MR#: [id number] : 1945 Acct:[id number] Age/Sex: 80 / F ADM Date: 09/09/25 Loc: HO.XRAY Attending Dr: Frederick Gerardo MD Ordering Physician: Frederick Gerardo MD Date of Service: 09/09/25 Procedure(s): FL barium swallow with air Accession Number(s): [id number] cc: Jeni Garcia MD; Frederick Gerardo MD Reason for Exam: R13.10 - Dysphagia, unspecified EXAMINATION: XR BARIUM SWALLOW CLINICAL INFORMATION: Dysphagia COMPARISON: Chest and rib x-ray June [address] May 2021 TECHNIQUE: Barium swallow was performed using thin and thick barium and effervescent granules. Barium tablet was also administered. FINDINGS: There is trace laryngeal penetration with liquid barium. No aspiration. There is mild esophageal dysmotility. No mass, stricture, =or mucosal irregularity seen. No hiatal hernia or gastroesophageal reflux could be elicited. Barium tablet passed into the stomach. FLUOROSCOPY TIME: 1.44 minutes DOSE AREA PRODUCT: 933 uGy-m2 (microgray-meter squared) FL/FL barium swallow with air IMPRESSION: Trace laryngeal penetration. No aspiration. Mild esophageal dysmotility. Otherwise unremarkable exam. Electronically signed by: Dilma Solomon MD 09/09/2025 02:42 PM EST RP Dictated By: Dilma Solomon MD Signed By: <Electronically signed by Dilma Solomon MD in OV> 09/09/25 1442 DD/ 1002 TD/TT: 09/09/25 1020 Charity Fundraiser: ALEJO Procedure Note Donotuseinterpreter, Image - 09/09/[address] [address] Fluoroscopy Report Signed Patient: Joan Armendariz RMR#: [id number] : 1945cct:[id number] Age/Sex: 80 / FADM Date: 09/09/25 Loc: HO.XRAY Attending Dr: Frederick Gerardo MD Ordering Physician: Frederick Gerardo MD Date of Service: 09/09/25 Procedure(s): FL barium swallow with air Accession Number(s): [id number] cc: Jeni Garcia MD; Frederick Gerardo MD Reason for Exam: R13.10 - Dysphagia, unspecified EXAMINATION: XR BARIUM SWALLOW CLINICAL INFORMATION: Dysphagia COMPARISON: Chest and rib x-ray June [address] May 2021 TECHNIQUE: Barium swallow was performed using thin and thick barium and effervescent granules. Barium tablet was also administered. FINDINGS: There is trace laryngeal penetration with liquid barium. No aspiration. There is mild esophageal dysmotility. No mass, stricture, =or mucosal irregularity seen. No hiatal hernia or gastroesophageal reflux could be elicited. Barium tablet passed into the stomach. FLUOROSCOPY TIME: 1.44 minutes DOSE AREA PRODUCT: 933 uGy-m2 (microgray-meter squared) FL/FL barium swallow with air IMPRESSION: Trace laryngeal penetration. No aspiration. Mild esophageal dysmotility. Otherwise unremarkable exam. Electronically signed by: Dilma Solomon MD 09/09/2025 02:42 PM EST RP Dictated By: Dilma Solomon MD Signed By: <Electronically signed by Dilma Solomon MD in OV> 09/09/25 1442 DD/ 1002 TD/TT: 09/09/25 1020 Charity Fundraiser: ALEJO [facility] External Provider IMG FLU OROSCOPY PROCEDURES Final Result * (ABNORMAL) Complete Blood Count Manual Diff (09/03/2025 11:32 AM EST) White Blood Count 7.6 4.8 - 10.8 X10*3/uL [facility] Red Blood Count 3.68(L) 4.20 - 5.50 X10*6/uL [facility] Hemoglobin 10.1(L) 12.0 - 16.0 g/dl [facility] Hematocrit 32.8(L) 37.0 - 47.0 % [facility] Mean Corpuscular Volume 89.1 80.0 - 98.0 fL [facility] Mean Corpuscular Hemoglobin 27.4 27.0 - 33.0 pg [facility] Mean Corpuscular HGB Conc 30.8(L) 31.0 - 35.0 g/dl [facility] Red Cell Distribution Width 24.8(H) 11.0 - 16.0 % [facility] Platelet Count 235 160 - 400 X10*3/uL [facility] Mean Platelet Volume 11.0 9.4 - 12.3 fL [facility] NRBC Pct Auto 0.0 0.0 - 0.2 /100WBC [facility] NRBC Abs Auto 0.000 0.0 - 0.012 X10*3/uL [facility] Neutrophils % Manual 54 45 - 73 % [facility] Band Neutrophils Percent 0(L) 3 - 5 % [facility] Lymphocytes Percent Manual 24 20 - 40 % [facility] Atypical Lymphs Percent Manual 2 0 - 6 % [facility] Monocytes Percent Manual 5 2 - 11 % [facility] EOSINOPHILS % MANUAL 15(H) 0 - 4 % [facility] NEUTROPHILS ABSOLUTE MANUAL 4.1 2.0 - 8.3 X10*3/uL [facility] LYMPHOCYTES ABSOLUTE MANUAL 1.8 1.2 - 4.9 X10*3/uL [facility] Atypical Lymph Absolute Manual 0.2 x10*3/uL [facility] MONOCYTES ABSOLUTE MANUAL 0.4 0.1 - 1.2 X10*3/uL [facility] EOSINOPHILS ABSOLUTE MANUAL 1.1(H) 0.0 - 0.4 X10*3/uL [facility] Platelet Estimate NORMAL NORMAL [facility] Large Platelet [facility] Platelet Morphology Comment NOTED [facility] RBC Morphology NOTED [facility] POLYCHROMASIA 1+ (0-2) /[facility] Hypochromasia 1+ (5-14) /[facility] Macrocytosis 1+ (5-14) /F [facility] Ovalocytes 1+ (5-14) /[facility] Maximilian Cells 1+ (0-2) /[facility] 09/03/2025 11:3 2 AM EST 09/03/2025 1:17 PM EST us Jeni Garcia MD LAB BLOOD ORDERABLES Fin al Result [facility] [address] [place] [phone] * (ABNORMAL) Urinalysis, Complete, with Reflex to Culture (09/03/2025 11:32 AM EST) Color Urine Yellow [facility] Appearance Urine Clear [facility] PH 7.0 5.0 - 9.0 [facility] Glucose Urine UA Negative Negative mg/dL [facility] Urine Blood Negative Negative [facility] Specific [place] - Urine 1.010 1.005 - 1.025 [facility] Urine Protein Negative Neg-Trace mg/dL [facility] Urine Ketones Negative Negative mg/dL [facility] Nitrite Urine Negative Negative [facility] Leukocyte Esterase Urine Trace(A) Negative [facility] RBC Urine 0-2 0 - 2 /HPF [facility] Urine WBC 0-5 0 - 5 /HPF [facility] Urine Squamous Epithelial Cell 0-2 0 - 2 /HPF [facility] Urine Bacteria None Seen None Seen [facility] Hyaline Casts, Urine 0-2 0 - 2 /LPF [facility] Urine 09/03/2025 11:3 2 AM EST 09/03/2025 1:19 PM EST Narrative [facility] - 09/03/2025 1:38 PM EST Urine, Clean Catch Jeni Garcia MD LAB URINE ORDERABLES Fin al Result Performing Organization Address City/[facility]/ZIP Co de Phone Number [facility] [address] [place] [phone] * (ABNORMAL) Lactate Dehydrogenase (LD) (09/03/2025 11:32 AM EST) Lactate Dehydrogenase 311(H) 122 - 220 U/L [facility] 09/03/2025 11:3 2 AM EST 09/03/2025 1:06 PM EST Generic External Data Provider LAB BLOOD ORDERAB LES Final Result Performing Organization Address [facility] Co de Phone Number [facility] [address] [place] [phone] * (ABNORMAL) POCT Hemoglobin (07/22/2025 1:25 PM EDT) Hemoglobin 10.1(A) 12.0 - 15.0 QC Media Lot # [id number] Lot# Expiration Date Blood 07/22/2025 1:25 PM EDT Jeni Garcia MD POINT OF CARE TEST ENTER /EDIT ORDERABLES Final Result * Referral to Hematology / Oncology (07/19/2025) Jeni Garcia MD OUTPATIENT REFERRAL ORDNeli RASMUSSEN Final Result * POCT Hgb A1c (06/24/2025 10:20 AM EDT) Hemoglobin A1C 5.4 4.0 - 5.7 % QC Media Lot # [id number] Lot# Expiration Date Blood 06/24/2025 10:2 0 AM EDT Result [facility] Jeni Garcia MD POINT OF CARE TEST ENTER /EDIT ORDERABLES Final Result * Lipid Panel with Reflex to Direct LDL (02/15/2023 11:09 AM EDT) Cholesterol, Total 141 <200 mg/dL [facility] [place] [facility] HDL Cholesterol 54 > OR = 50 mg/dL [facility] [place] [facility] Triglycerides 99 <150 mg/dL [facility] [place] [facility] LDL Cholesterol 69 mg/dL (calc) [facility] Comment: Reference range: <100 Desirable range <100 mg/dL for primary prevention; <70 mg/dL for patients with CHD or diabetic patients with > or = 2 CHD risk factors. LDL-C is now calculated using the Bebeto-Guajardo calculation, which is a validated novel method providing better accuracy than the Friedewald equation in the estimation of LDL-C. Bebeto SS et al. [place]. 2013;310(19): 2594-8193 (http://education.Navmii/faq/KAY239) Chol/HDLC Ratio 2.6 <5.0 (calc) [facility] [place] [facility] Non-HDL Cholesterol 87 <130 mg/dL (calc) [facility] Comment: For patients with diabetes plus 1 major ASCVD risk factor, treating to a non-HDL-C goal of <100 mg/dL (LDL-C of <70 mg/dL) is considered a therapeutic option. 02/15/2023 11:0 9 AM EDT 02/15/2023 11:10 AM EDT Narrative [facility] - 02/16/2023 2:24 AM EDT FASTING:NO FASTING: NO Jeni Garcia MD LAB BLOOD ORDERABLES Fin al Result [facility] [address] [place] [phone] [facility] [address] [place] [phone] from Last 3 Months or Most Recently Relevant to Health Maintenance Insurance [facility] [place] [phone] [facility] - [facility] Care Teams New Grad Rn Relationship Specialty Start Date End Date Jeni Garcia MD [address] [place] [phone] PCP - General Family Medicine 12/16/15
--- OUTSIDE RECORDS SUMMARY | 2025-09-27 20:46 | XMS_ITS | Encounter Summary ---
Author Organization [employer] Address 75 [facility] 7t [place] [address] Care Team Providers Care Account Services Associate Name Role Phone Jeni Garcia MD Primary Care Provider + Reason for Visit * Reason Comments Med Change Request Encounter Details Date Type Department Care Team ([facility] st Contact Info) Description 05/12/2025 Refill [facility] [address] [place], [place] [phone] Jeni Garcia MD [address] [place], [place] [phone] Social History Tobacco Use Types Packs/Day Years [...] Description 10/30/2025 10:30 AM EST Office Visit [address] [address] Jeni Garcia MD [address] [place] [address] 11/01/2025 9:00 AM EST Medication Management [address] [address] Margarita Baumann, PharmD [address] [place] [address] 12/05/2025 11:15 AM EST Office Visit [address] [address] Jeni Garcia MD [address] [place] [phone] documented as of this encounter Visit Diagnoses Not on filedocumented in this encounter Additional Health Concerns Assessment Noted Time PHQ-9 Depression Total Score: 9 04/18/20 25 11:57 AM EDT documented as of this encounter Care Teams Account Services Associate Relationship Specialty Start Date End Date Jeni Garcia MD [address] [place] [phone] PCP - General Family Medicine 12/16/15 documented as of this encounter
--- OUTSIDE RECORDS SUMMARY | 2025-09-27 20:46 | XMS_ITS | Encounter Summary ---
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 10/05/2024 12:26 PM EST [facility] at 1226 EST Clinical Information Heartburn,esophag eal reflux symptoms that persist despite appropriate therapy Finding:R/O oliver's 10/05/2024 12:26 PM EST [facility] Gross Description [...] one slide. 10/05/2024 12:26 PM EST [facility] Disclaimer Unless otherwise specified, all tissue is 10% NB formalin fixed and paraffin embedded. 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
--- OUTSIDE RECORDS SUMMARY | 2025-09-27 20:46 | XMS_ITS | Encounter Summary ---
Author Organization [employer] Address 75 [facility] 7t [place] [address] Care Team Providers Care Medical Device Name Role Phone Jeni Garcia MD Primary Care Provider + Encounter Details Date Type Department Care Team (Latest Contact Info) Description 09/03/2025 Results Follow-Up [facility] 230 [place], [place] [phone] Jeni Garcia MD 230 [place], [place] [phone] Complete Blood Count Manual Diff, Comprehensive Metabolic [...] Description 10/30/2025 10:30 AM EST Office Visit [facility] [address] [place] [phone] Jeni Garcia MD [address] [place] [address] 11/01/2025 9:00 AM EST Medication Management [facility] [address] [place] [address] PierMargarita Rodney PharmD 230 [place] [address] 12/05/2025 11:15 AM EST Office Visit [facility] [address] [place] [address] [phone] Jeni Garcia MD 230 [place], [place] [phone] Scheduled Orders Name Type Priority Associated Diagnoses [...] as of this encounter Care Teams Medical Device Relationship Specialty Start Date End Date Jeni Garcia MD [address] [place] [phone] PCP - General Family Medicine 12/16/15 documented as of this encounter
--- OUTSIDE RECORDS SUMMARY | 2025-09-27 20:46 | XMS_ITS | Encounter Summary ---
Author Organization [employer] Address [address] [place] [address] 7 [place] [address] Care Team Providers Care Developmental Training Counselor Name Role Phone Jeni Garcia MD Primary Care Provider + Reason for Visit * Reason Onset Date Comments Call Back Request 01/02/2025 Encounter Details Date Type Department Care Team ([facility] Contact Info) Description 01/02/2025 Telephone [facility] 230 [place], [place] [phone] Jeni Garcia MD 230 [place], [place] [phone] Call Back Request Social History Tobacco Use [...] visit because they dohave another appt prior. Investor Relations Associate did inform them on 15 min mao period but forwarding message as anFYI. Please contact Daughter at [phone]. documented in this encounter Plan of Treatment Upcoming Encounters Date Type Department Care Team (Late st Contact Info) Description 10/30/2025 10:30 AM EST Office Visit [facility] [address] [place] [phone] Jeni Garcia MD [address] [place] [address] 11/01/2025 9:00 AM EST Medication Management [facility] [address] [place] [phone] Margarita Baumann, XinD [address] [place] [address] 12/05/2025 11:15 AM EST Office Visit [facility] [address] [place] [phone] Jeni Garcia MD 230 [place], [place] [phone] documented as of this encounter Visit Diagnoses Not on filedocumented in this encounter Additional Health Concerns Assessment Noted Time PHQ-9 Depression Total Score: 0 11/16/19 23 10:53 AM EST documented as of this encounter Care Teams Developmental Training Counselor Relationship Specialty Start Date End Date Jeni Garcia MD [address] [place] [address] [phone] PCP - General Family Medicine 12/16/15 documented as of this encounter
--- OUTSIDE RECORDS SUMMARY | 2025-09-27 20:46 | XMS_ITS | Encounter Summary ---
Author Organization [employer] Address 75 [facility] 7t [place] [address] Care Team Providers Care Wireless Sales Associate Name Role Phone Jeni Garcia MD Primary Care Provider + Reason for Visit * Reason Comments Med Refill Encounter Details Date Type Department Care Team (Late st Contact Info) Description 10/19/2023 Refill [facility] 230 [place], [place] [phone] Jayshree Andrade DO 230 [place], [place] [phone] Social History Tobacco Use Types Packs/Day Years [...] Description 10/30/2025 10:30 AM EST Office Visit [address] [address] Jeni Garcia MD [address] [place] [address] 11/01/2025 9:00 AM EST Medication Management [address] [address] Margarita Baumann PharmD [address] [place] [address] 12/05/2025 11:15 AM EST Office Visit [address] [address] Jeni Garcia MD [address] [place] [address] documented as of this encounter Visit Diagnoses Not on filedocumented in this encounter Additional Health Concerns Assessment Noted Time PHQ-9 Depression Total Score: 0 11/16/19 23 10:53 AM EST documented as of this encounter Care Teams Wireless Sales Associate Relationship Specialty Start Date End Date Jeni Garcia MD [address] [place] [phone] PCP - General Family Medicine 12/16/15 documented as of this encounter
--- OUTSIDE RECORDS SUMMARY | 2025-09-27 20:46 | XMS_ITS | Encounter Summary ---
Author Organization [employer] Address [address] [place] [address] 7t [place] [address] Care Team Providers Care Talent Analyst Name Role Phone Jeni Garcia MD Primary Care Provider + Reason for Visit * Reason Onset Date Comments C pap request 01/26/2023 Encounter Details Date Type Department Care Team ([facility] st Contact Info) Description 01/26/[address] [facility] 230 [place], [place] [phone] Jeni Garcia MD 230 [place], [place] [phone] C pap request Social History Tobacco Use [...] on CPAP machine. Please contact pt at [phone] ([place] speaker) * Telephone Encounter - Aleshia Stark [...] 10/30/2025 10:30 AM EST Office Visit [address] [address] Jeni Garcia MD [address] [place] [phone] 11/01/2025 9:00 AM EST Medication Management [address] [address] Margarita Baumann, XinD [address] [place] [phone] 12/05/2025 11:15 AM EST Office Visit [address] [phone] Jeni Garcia MD 230 [place], [place] [phone] documented as of this encounter Visit Diagnoses Not on filedocumented in this encounter Additional Health Concerns Assessment Noted Time PHQ-9 Depression Total Score: 0 11/16/19 23 10:53 AM EST documented as of this encounter Care Teams Talent Analyst Relationship Specialty Start Date End Date Jeni Garcia MD 230 [place] [address] PCP - General Family Medicine 12/16/15 documented as of this encounter
[2025-09-27 21:00] VITALS: BP 155/63; PULSE 63; RESP 20; TEMP 36.6; O2SAT 97
[2025-09-27 21:28] VITALS: BP 155/63; PULSE 63; RESP 20; TEMP 36.6; O2SAT 97
== END 2025-09-27 21:32 | disposition home or self-care (01) ==
PROVIDERS: Physician Assistant Medical; Emergency Provider Emergency Medicine; PCP Internal Medicine
DX: S29.012A Strain of muscle and tendon of back wall of thorax, initial encounter (principal); X58.XXXA Exposure to other specified factors, initial encounter; M54.6 Pain in thoracic spine; E11.9 Type 2 diabetes mellitus without complications; I10 Essential (primary) hypertension; E78.5 Hyperlipidemia, unspecified; Y93.89 Activity, other specified; Y92.019 Unspecified place in single-family (private) house as the place of occurrence of the external cause; Y99.9 Unspecified external cause status; Z79.82 Long term (current) use of aspirin; Z79.02 Long term (current) use of antithrombotics/antiplatelets; Z79.899 Other long term (current) drug therapy; Z87.891 Personal history of nicotine dependence
CPT/HCPCS: 36415; 71046; 73030; 80053; 84484; 85025; 93005; 99283; 99285

== ENCOUNTER → 2025-09-27 11:54 | Outpatient (BNV) | payer OTHER, SELFPAY | PROVIDERS: PCP Internal Medicine; Visit Provider Internal Medicine Cardiovascular Disease | DX: R07.9 Chest pain, unspecified (principal) | CPT/HCPCS: 93010 ==

== ENCOUNTER → 2025-09-27 12:14 | Outpatient (BNV) | payer OTHER, SELFPAY | PROVIDERS: PCP Internal Medicine; Visit Provider Radiology Diagnostic Radiology | DX: R07.9 Chest pain, unspecified (principal); Z96.612 Presence of left artificial shoulder joint; M25.512 Pain in left shoulder | CPT/HCPCS: 71046; 73030 ==

== ENCOUNTER 2025-10-07 12:41 | Outpatient (AMB) | payer OTHER, SELFPAY ==
--- NOTE | 2025-10-07 12:57 | MHC.OFFVIS ---
Vital Signs 10/07/25 13:02 Height 4 ft 11 in Weight 154 lb 5.177 oz BMI 31.2 BP 120/50 L Blood Pressure Location Lt brachial Position Sitting Pulse 72 Pulse Source Pulse Oximeter Pulse Oximetry (%) 99 Oxygen Delivery Method Room Air Intake Visit Reasons: asthma Design Engineer Products Required: Yes Design Engineer Products Services: Design Engineer Products Offered & Declined Design Engineer Products Name: MD speaks tajik Accompanied by: Self / Same As Patient Allergies codeine (CODEINE) Allergy (Mild, Verified 10/07/25 13:04) Rash morphine (MORPHINE) Allergy (Mild, Verified 10/07/25 13:04) Hallucinations oxycodone (Percocet) Allergy (Mild, Verified 10/07/25 13:04) Hives tramadol Adverse Reaction (Severe, Verified 10/07/25 13:04) Headache HPI Comments Details: The patient is a 80-year-old woman with a known history of asthma and chronic rhinitis. overall she has been doing well with the current respiratory regimen. She has not had to use her rescue inhaler more than twice a week. She does have significant rheumatoid arthritis and has been on methotrexate. we did review her last chest x-ray demonstrating some mild atelectasis of the left base. Her PFTs also demonstrated mild restrictive lung disease. Therefore, we need to follow closely any changes while she is on the methotrexate. Otherwise she is doing very well on the current respiratory regimen. She does have some shortness of breath with activity but is mild. her acid reflux appears to be more controlled on the current medication and she is trying to maintain reflux diet along with sleeping elevated. She does take allergy medicine with good effect. 12/31/2021 the patient is here for a pulmonary follow-up visit. Overall she is feeling well. Her breathing has improved and also her volume status has also improved. She continues on methotrexate. This is helping her significantly. She is not taking the 8 tablets a week she is actually taking just 6 tablets. She is to be enough to keep her stable. In the meantime her lower extremity edema has improved. I did review her chest x-ray that she had back in September demonstrating some persistent atelectasis to the left base. I also reviewed her CT scan that she had back in May 2021 demonstrating again areas of atelectasis and less likely pneumonitis. Primarily at the left lung. Will continue to monitor closely her imaging with repeat x-ray in months. Patient is to continue with current therapy. If any issues she is to call for an earlier evaluation. 10/28/2022 the patient is here for a pulmonary follow-up visit. The patient continues to do well. Back in the fall she did have a flare-up of her asthma. She had to use her nebulizer machine a few times a day. Although, she did not need any prednisone. She continues on the methotrexate. She is actually just taking 6 tablets weekly. She is following closely with blood work through the [facility]. She did have a repeat chest x-ray which I personally reviewed. Still has some areas of atelectasis. Also has likely some increased attenuation primarily due to soft tissue but I do not see any evidence of any active lung disease. Will wait for the final read of the x-ray. In the meantime the patient should be on a maintenance inhaler. She had been on Spiriva 4. Will go ahead and switch her to Advair HFA to see if she has a better response. The patient also does not do well with powdered inhalers. 05/02/2023 the age the patient is here for pulmonary follow-up visit. Overall the patient has been doing well. She continues on the methotrexate. No evidence of any adverse effects. The patient has been using her Advair HFA seems to be working well for her. She has a rescue inhaler that she had not had to use. She is no longer using the Spiriva. Her last chest x-ray was back in October or in the winter time demonstrating some atelectasis but stable. Will plan to do a repeat chest x-ray when she comes back in the springtime. The patient is recovering from her shoulder surgery. She had no issues with anesthesia and currently recovering well. 10/31/2023 the patient is here for pulmonary follow-up visit. Since we last spoke the patient was admitted to [facility] back in the fall with pneumonia. She was told she had fluid around the lungs and also the heart. The subsequent lab got better. Then she developed issues with lower extremity edema and swelling primarily the left lower extremity. She has significant inflammation and redness consistent with cellulitis. She was briefly admitted to the hospital. She completed a course of antibiotics but she does not know the name. At this point the areas getting red and warm again tender. She looks like she is getting recurrent cellulitis. She understands that the lower extremity edema becomes an issue with dermatitis and her scratching and the recurrent infections in the fact that she is on immunosuppressant therapy. Therefore, will give her a course of doxycycline to avoid further spread. The patient also will talk to her primary care doctor about her medications. The amlodipine may be aggravating the lower extremity edema. She may need also additional diuretics. She has a hard time with the compression socks. As far as her lungs she has been doing well now with the Advair. She recovered from the pneumonia and will go ahead and treat her with the Prevnar 20 pneumonia vaccine. In addition to that the patient should get a repeat x-ray to make sure that she does not have any residual changes from her pneumonia. Clinically her respiratory exam is stable and her respiratory exam is also reassuring. 05/04/2024 the patient is here for a pulmonary follow-up visit. Overall the patient is doing well. She does complaint of possible aches and pains. She has some back pain and at times knee pain. She does use her inhalers as prescribed. The patient is on methotrexate once a week with good response. She is not taking any prednisone she does not like do a makes it feel. As far as pain she has gabapentin that she uses at needed just small dose at nighttime because it makes her dizzy. She was evaluated for her back pain in the hospital. She had an x-ray without any acute disease. In addition to that she had an abdominal or CT scan demonstrating no acute disease either. No parenchymal involvement no pleural involvement. The back pain is very much associated with the paraspinal area. It is very tender to the touch. The patient did respond well to Flexeril. I will send her another prescription to the pharmacy. 12/10/2024 the patient is here for pulmonary follow-up visit. Overall she is doing okay. Although beginning of the month she did develop significant fevers in Rachael addition to respiratory complaints. She came into the hospital she was diagnosed with influenza a. She was discharged home. Then she is tired doctor started antibiotics for postviral back serial bronchitis. In the meantime she stopped the methotrexate. She did have a chest x-ray which I personally reviewed demonstrating the interstitial changes. Will have to get a repeat x-ray at some point to follow-up with it. But clinically she is feeling well this time. She is completing her antibiotics at this time. She continues use her respiratory therapy with good effect. Therefore will continue her current respiratory therapy will follow-up in 6 months unless she does not feel that she can call for an earlier assessment. 05/09/2025 the patient is here for a pulmonary follow-up visit. Since we last spoke she was on a cruise and was complicated by her having a heart attack. She was admitted to a hospital in [facility] and there she underwent a stent placement. She was placed on cardioprotective medications and she is now recovering. 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 She did undergo a stent placement. Although now she is having some difficulty swallowing. She has had significant amount of weight loss. She also complains of some pleuritic chest pain. [id number] severity. Her inhaler therapy has been affecting beneficial. She is having some difficulty with dysphagia and swallowing. Will request a barium swallow at this time. In the meantime the patient will continue with the current respiratory medications. 10/07/2025 the patient is here for pulmonary follow-up visit. She has been completely worsening cough malaise chest congestion nasal congestion. Moderate severity. She has been sick now for a week. Positive sick contacts. We did swab her for flu RSV and COVID. While I was doing the procedure of the nasal swab the patient went to clear her nose while the probe was doing her nose pushing the probe further into her nose. She did have some pain in some bleeding. It was able to remove the the swab and the patient did not have any evidence of any active bleeding. She did have discomfort but did subside after it was removed. The patient has respiratory exam is reassuring. She does continues take methotrexate. She is on 8 tablets. The patient has been having issues with both anemia and now thrombocytopenia. She is currently on high dose of methotrexate. I did speak to her about the possibility of having medication related immunosuppression. She may want to talk to her telesales manager regarding that. She has found the methotrexate been very effective for her inflammatory arthritis. Therefore she will have to talk further to her telesales manager. At least from a pulmonary standpoint the patient is doing well except for this likely sinus infection. Will go ahead and send her Augmentin to the pharmacy. She can also use cough medications she should Mucinex DM. If the patient is better she is to call otherwise she is going to continue with the current respiratory therapy. Also to note she did have a barium swallow demonstrating some microaspiration into the larynx. No obvious micro aspirations into the airway although it is very suspicious. We did talk about chin talk and talked about sleeping elevated to minimize micro aspirations at this time. 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 Renal artery stenosis Open broken tooth due to trauma without complication Exercise counseling Dietary counseling Vitamin D deficiency Sciatica associated with disorder of lumbar spine Meralgia paresthetica of right side Calculus of lower urinary tract Venous insufficiency of leg Tendinitis of right rotator cuff Sleep apnea Rheumatoid arthritis, adult Primary osteoarthritis of both knees Prediabetes Osteopenia Neck pain Heel pain Greater trochanteric pain syndrome Eosinophil count raised Edema of lower extremity Degeneration of lumbar intervertebral disc BMI 35.0-35.9,adult Chronic low back pain Eczema Calcaneal spur Angle-closure glaucoma Hypothyroidism Abnormal gait Iron deficiency anemia secondary to blood loss (chronic) GERD (gastroesophageal reflux disease) COPD (chronic obstructive pulmonary disease) Hypertension Myocardial infarction Dysphagia Pleural effusion Cellulitis Limb swelling Chest pain Asthma Chronic allergic rhinitis Atelectasis of left lung Surgical History Hx of hand surgery Hx of cholecystectomy Hx of appendectomy History of back surgery History of left shoulder replacement Hx of shoulder replacement History of total right knee replacement (TKR) Family History Father Lung cancer Mother Throat cancer Social History Household Members: Family Housing: House Do you presently have visiting nurse or other home services: Yes ([facility]) Patient Tobacco Use Status: Former Tobacco user Tobacco use type: Cigarette Years Smoked: 4 years Advance Directives Date on File: 05/29/25 service: No Current occupational status: disabled Current occupational exposures/hazards: No Review of Systems Const Denies chills, Denies fever(s), Reports malaise, Denies weight gain and Denies weight loss ENT Denies dizziness, Denies lip swelling and Denies tongue swelling Card Denies chest pain, Denies leg edema, Denies lightheadedness, Denies palpitations, Denies dyspnea on exertion, Denies orthopnea and Denies other Resp Denies cough and Denies dyspnea on exertion GI Denies hematochezia and Denies change in stool character Musc Denies abnormal gait, Denies muscle weakness, Denies numbness, Denies radiating pain into limb and Denies tingling Skin/Breast Reports pruritus, Reports erythema, Reports skin pain and Reports skin swelling Neuro Denies abnormal gait, Denies dizziness, Denies numbness and Denies tingling Psych Denies no additional complaints Endo Denies palpitations Danny/Lymph Denies easy bleeding and Denies lymphadenopathy Aller/Immun Denies lip swelling and Denies tongue swelling Physical Exam Vital Signs: Last Vital Signs Pulse 72 10/07/25 13:02 BP 120/50 L 10/07/25 13:02 Pulse Ox 99 10/07/25 13:02 Oxygen Delivery Method Room Air 10/07/25 13:02 BMI result Body Mass Index 31.2 Const General: alert Neck Neck: Yes normal visual inspection, Yes full ROM and Yes no lymphadenopathy Chest Chest palpation & inspection: normal inspection of the chest Resp Effort & Inspection: normal respiratory effort Auscultation: no rales and diminished lung sounds Cardio Rate: regular rate Rhythm: regular rhythm Heart sounds: S1 normal heart sound present and S2 normal heart sound present GI Palpation (GI): Soft to palpation and nontender Auscultation: normal bowel sounds Skin General skin exam: no rashes or lesions noted Extrem General: No edema Assessment & Plan Assessment & Plan (1) Sinusitis: Code(s): J32.9 - Chronic sinusitis, unspecified Category: Medical Qualifiers: Sinusitis location: unspecified location Chronicity: acute Recurrence: not specified as recurrent Qualified Code(s): J01.90 - Acute sinusitis, unspecified (2) Chronic allergic rhinitis: Code(s): J30.9 - Allergic rhinitis, unspecified Category: Medical (3) Atelectasis of left lung: Comment: Currently on Methotrexate Code(s): J98.11 - Atelectasis Category: Medical (4) Asthma: Code(s): J45.909 - Unspecified asthma, uncomplicated Category: Medical Qualifiers: Asthma complication type: uncomplicated Asthma persistence: persistent Asthma severity: mild Qualified Code(s): J45.30 - Mild persistent asthma, uncomplicated (5) Limb swelling: Code(s): M79.89 - Other specified soft tissue disorders Category: Medical (6) Back pain: Code(s): M54.9 - Dorsalgia, unspecified Category: Medical Qualifiers: Back pain laterality: unspecified Back pain location: thoracic back pain Chronicity: unspecified Qualified Code(s): M54.6 - Pain in thoracic spine (7) Dysphagia: Code(s): R13.10 - Dysphagia, unspecified Category: Medical Qualifiers: Dysphagia type: unspecified Qualified Code(s): R13.10 - Dysphagia, unspecified Plan Short-acting beta agonist as needed continue singular continue Advair HFA consider decreasing MTX, with signs of marrow suppression. start Augmentin barium swallow-with laryngeal penetration. Chin tuck, sleep elevated FLU/RSV/SARS negative F/U 6-8 months Orders: Orders SARS-CoV2/FLU/RSV Today B34.9 - Viral infection, unspecified, R07.9 - Chest pain, unspecified Medications: New amoxicillin-pot clavulanate 875-125 mg 1 tab PO BID 20 tabs 0RF 10 days Coding Level of Care Code Est Pt Level 4 (64142) Diagnoses Acute sinusitis, recurrence not specified, unspecified location J01.90 Sinusitis location: unspecified location Chronicity: acute Recurrence: not specified as recurrent Chronic allergic rhinitis J30.9 Atelectasis of left lung J98.11 Mild persistent asthma without complication J45.30 Asthma complication type: uncomplicated Asthma persistence: persistent Asthma severity: mild Limb swelling M79.89 Thoracic back pain, unspecified back pain laterality, unspecified chronicity M54.6 Back pain laterality: unspecified Back pain location: thoracic back pain Chronicity: unspecified Dysphagia, unspecified type R13.10 Dysphagia type: unspecified Time Spent (min) 17
[2025-10-07 13:02] VITALS: BP 120/50; PULSE 72; O2SAT 99; BMI 31.2
--- OUTSIDE RECORDS SUMMARY | 2025-10-07 15:48 | XMS_ITS | Encounter Summary ---
Author Organization [employer] Address [address] [facility] [address] [place] [address] Care Team Providers Care Elementary [employer] Librarian Name Role Phone Jeni Garcia MD Primary Care Provider + Reason for Visit * Reason Comments Med Refill Encounter Details Date Type Department Care Team (Late st Contact Info) Description 10/19/2023 Refill [facility] [address] [place], [place] [phone] Jayshree Andrade DO [address] [place], [place] [phone] Social History Tobacco Use Types Packs/Day Years [...] Description 10/30/2025 10:30 AM EST Office Visit [address] [address] Jeni Garcia MD [address] [place] [address] 11/01/2025 9:00 AM EST Medication Management [address] [address] Margarita Baumann PharmD [address] [place] [address] 12/05/2025 11:15 AM EST Office Visit [address] [address] Jeni Garcia MD [address] [place] [address] documented as of this encounter Visit Diagnoses Not on filedocumented in this encounter Additional Health Concerns Assessment Noted Time PHQ-9 Depression Total Score: 0 11/16/19 23 10:53 AM EST documented as of this encounter Care Teams Elementary [employer] Librarian Relationship Specialty Start Date End Date Jeni Garcia MD [address] [place] [phone] PCP - General Family Medicine 12/16/15 documented as of this encounter
--- OUTSIDE RECORDS SUMMARY | 2025-10-07 15:48 | XMS_ITS | Encounter Summary ---
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 Jeni Garcia MD [address] [place] [address] Phone: tel: fax: [facility] [address] [facility] [address] [place] [address] Phone: tel: fax: Referral ID Status Reason Start Date Expiration Date V isits Requested Visits Authorized [id number] Closed Specialty Services Required 06/13/2024 06/13/2025 1 1 Encounter Details Date Type Department Care Team (Late st Contact Info) Description 06/13/2024 Orders Only [facility] [address] [place], [place] [phone] Jeni Garcia MD [address] [place], [place] [phone] Renal artery stenosis (CMS/HCC); Superior mesenteric artery [...] Description 10/30/2025 10:30 AM EST Office Visit [facility] [address] [place] [address] Jeni Garcia MD [address] [place] [address] 11/01/2025 9:00 AM EST Medication Management [address] [address] Margarita Baumann, Alonso [address] [place] [address] 12/05/2025 11:15 AM EST Office Visit [facility] [address] [place] [address] Jeni Garcia MD [address] [place] [address] Scheduled Referrals Name Type Priority Associated Diagnoses [...] PM EDT Narrative 06/28/2024 4:28 PM EDT [facility] [address] [place] [address] XRay Report Signed Patient: Joan Armendariz MR#: [id number] : 1945 Acct:[id number] Age/Sex: 79 / F ADM Date: 06/28/24 Loc: .ED Attending Dr: Ordering Physician: Geovanna Austin Date of Service: 06/28/24 Procedure(s): XR lumbar spine 2-3V Accession Number(s): [id number] cc: Jeni Garcia MD; Geovanna Austin EXAMINATION: [...] 06/28/24 1625 DD/ 1600 TD/TT: 06/28/24 1615 Director Of Optimization: Procedure Note Donotuseinterpreter, Image - 06/28/[address] [address] XRay Report Signed Patient: Joan Armendariz RMR#: [id number] : 1945cct:[id number] Age/Sex: 79 / FADM Date: 06/28/24 Loc: .ED Attending Dr: Ordering Physician: Geovanna Austin Date of Service: 06/28/24 Procedure(s): XR lumbar spine 2-3V Accession Number(s): [id number] cc: Jeni Garcia MD; Geovanna Austin EXAMINATION: [...] 06/28/24 1625 DD/ 1600 TD/TT: 06/28/24 1615 Director Of Optimization: [facility] External Provider IMG XR PROCEDURES Final Result * XR Chest 1 View (06/28/2024 12:52 PM EDT) Anatomical Region Laterality Modality Chest Radiographic Tamiko ging 06/28/2024 12:5 2 PM EDT Narrative 06/28/2024 3:02 PM EDT [address] [address] XRay Report Signed Patient: Joan Armendariz MR#: [id number] : 1945 Acct:[id number] Age/Sex: 79 / F ADM Date: 06/28/24 Loc: HO.ED Attending Dr: Ordering Physician: Geovanna Austin Date of Service: 06/28/24 Procedure(s): XR chest 1V Accession Number(s): [id number] cc: Jeni Garcia MD; Geovanna Austin EXAMINATION: [...] 06/28/24 1459 DD/ 1252 TD/TT: 06/28/24 1259 Director Of Optimization: BETH Procedure Note Donotuseinterpreter, Image - 06/28/2024 [place] [address] XRay Report Signed Patient: Joan Armendariz RMR#: [id number] : 1945cct:[id number] Age/Sex: 79 / FADM Date: 06/28/24 Loc: .ED Attending Dr: Ordering Physician: Geovanna Austin Date of Service: 06/28/24 Procedure(s): XR chest 1V Accession Number(s): [id number] cc: Jeni Garcia MD; Geovanna Austin EXAMINATION: [...] 06/28/24 1459 DD/ 1252 TD/TT: 06/28/24 1259 Director Of Optimization: BETH Authorpamela Provider Result Type Result Stat [facility] External Provider IMG XR PROCEDURES Final Result documented in this encounter Visit Diagnoses Diagnosis Renal artery stenosis Atherosclerosis of renal artery Superior mesenteric artery stenosis Stricture of artery Celiac artery stenosis Stricture of artery documented in this encounter Additional Health Concerns Assessment Noted Time PHQ-9 Depression Total Score: 0 11/16/19 23 10:53 AM EST documented as of this encounter Care Teams Canal Structure Operator Relationship Specialty Start Date End Date Jeni Garcia MD [address] [place] [address] PCP - General Family Medicine 12/16/15 documented as of this encounter
--- OUTSIDE RECORDS SUMMARY | 2025-10-07 15:48 | XMS_ITS | Encounter Summary ---
Author Organization [employer] Address [address] [facility] [address]t [place] [address] Care Team Providers Care Rag Room Supervisor Name Role Phone Jeni Garcia MD Primary Care Provider + Reason for Visit * Reason Comments Med Refill Encounter Details Date Type Department Care Team (Late st Contact Info) Description 03/04/2025 Refill [facility] [address] [place], [place] [phone] Jeni Garcia MD [address] [place], [place] [phone] Social History Tobacco Use Types Packs/Day Years [...] Description 10/30/2025 10:30 AM EST Office Visit [address] [address] Jeni Garcia MD [address] [place] [address] 11/01/2025 9:00 AM EST Medication Management [address] [address] Margarita Baumann, PharmD [address] [place] [address] 12/05/2025 11:15 AM EST Office Visit [address] [address] Jeni Garcia MD [address] [place] [address] documented as of this encounter Visit Diagnoses Not on filedocumented in this encounter Additional Health Concerns Assessment Noted Time PHQ-9 Depression Total Score: 0 11/16/19 23 10:53 AM EST documented as of this encounter Care Teams Rag Room Supervisor Relationship Specialty Start Date End Date Jeni Garcia MD [address] [place] [address] PCP - General Family Medicine 12/16/15 documented as of this encounter
--- OUTSIDE RECORDS SUMMARY | 2025-10-07 15:49 | XMS_ITS | Encounter Summary ---
Author Organization [facility] [facility] [employer] [facility] [employer] Address [address] [place] [address] 7t [place] [address] Care Team Providers Care Licensed Life And Health Agent Name Role Phone Jeni Garcia MD Primary Care Provider + Reason for Visit * Reason Onset Date Comments C Pap 02/22/2023 Encounter Details Date Type Department Care Team ([facility] st Contact Info) Description 02/22/2023 Telephone [facility] MEDICINE [address] [place], [place] [phone] Jeni Garcia MD [address] [place], [place] [phone] C Pap Social History Tobacco Use Types [...] If any questions please contact pt at [phone] (swedish speaking) * Telephone Encounter - Temi Bojorquez - 02/22/2023 2:44 PM EDT Tc from Pt requesting a script for Cpap Machine talk on appt on 02/15 with provider. Pt give fax number to send script to [facility] # [phone]. PCP Dr. Garcia documented in this encounter Plan of Treatment Upcoming Encounters Date Type Department Care Team (Late st Contact Info) Description 10/30/2025 10:30 AM EST Office Visit [address] [address] Jeni Garcia MD [address] [place] [phone] 11/01/2025 9:00 AM EST Medication Management [address] [address] Margarita Baumann, PharmD [address] [place] [address] 12/05/2025 11:15 AM EST Office Visit [address] [address] Jeni Garcia MD [address] [place] [phone] documented as of this encounter Visit Diagnoses Not on filedocumented in this encounter Additional Health Concerns Assessment Noted Time PHQ-9 Depression Total Score: 0 11/16/19 23 10:53 AM EST documented as of this encounter Care Teams Licensed Life And Health Agent Relationship Specialty Start Date End Date Jeni Garcia MD [address] [place] [phone] PCP - General Family Medicine 12/16/15 documented as of this encounter
--- OUTSIDE RECORDS SUMMARY | 2025-10-07 15:49 | XMS_ITS | Encounter Summary ---
Author Organization [employer] Address [address] [place] [address] 7t [place] [address] Care Team Providers Care Molder Bench Name Role Phone Jeni Garcia MD Primary Care Provider + Encounter Details Date Type Department Care Team ([facility] Contact Info) Description 04/04/2023 Orders Only [facility] MEDICINE [address] [place] [address] [phone] Jeni Garcia MD [address] [place] [address] [phone] Social History Tobacco Use Types Packs/Day Years [...] Upcoming Encounters Date Type Department Care Team ([facility] Contact Info) Description 10/30/2025 10:30 AM EST Office Visit [facility] MEDICINE [address] [place] [phone] Jeni Garcia MD [address] [place] [address] 11/01/2025 9:00 AM EST Medication Management [facility] MEDICINE [address] [place] [phone] Margarita Baumann, PharmD [address] [place] [address] 12/05/2025 11:15 AM EST Office Visit [facility] MEDICINE [address] [place] [phone] Jeni Garcia MD [address] [place] [address] documented as of this encounter Visit Diagnoses Not on filedocumented in this encounter Additional Health Concerns Assessment Noted Time PHQ-9 Depression Total Score: 0 11/16/19 23 10:53 AM EST documented as of this encounter Care Teams Molder Bench Relationship Specialty Start Date End Date Jeni Garcia MD [address] [place] [phone] PCP - General Family Medicine 12/16/15 documented as of this encounter
--- OUTSIDE RECORDS SUMMARY | 2025-10-07 15:49 | XMS_ITS | Encounter Summary ---
Author Organization [employer] Address [address] [facility] 7t [place] [address] Care Team Providers Care Qa Auditor Name Role Phone Jeni Garcia MD Primary Care Provider + Encounter Details Date Type Department Care Team (Late st Contact Info) Description 10/07/2025 Orders Only GENERIC EXTERNAL DATA DEPARTMENT Provider, [...] Description 10/30/2025 10:30 AM EST Office Visit [address] [address] Jeni Garcia MD [address] [place] [phone] 11/01/2025 9:00 AM EST Medication Management [address] [address] Margarita Baumann, PharmD [address] [place] [phone] 12/05/2025 11:15 AM EST Office Visit [address] [address] Jeni Garcia MD [address] [place] [phone] documented as of this encounter Procedures Procedure Name Priority Date/Time Associated Diagnosis Comments SARS COV2/INFLUENZA A/B AND RSV RNA QL NAAT Routine 10/07/2025 12:41 PM EST documented in this encounter Results * SARS-CoV-2 RNA, Influenza A/B, and RSV RNA, Ql NAAT (10/07/2025 12:41 PM EST) Influenza A PCR NEGATIVE Negative [facility] Influenza B PCR NEGATIVE Negative [facility] Resp Syncy Virus RNA Qual PCR NEGATIVE Negative [facility] SARS COV2 PCR NEGATIVE Negative [...] use by authorized laboratories.Testing performed on the [employer] GeneXpert utilizingreal-time RT-PCR.All SARS CoV2 and positive influenza A/B results arereported to [facility]. 10/07/2025 12:4 1 PM EST 10/07/2025 2:13 PM EST us Generic External Data Provider LAB MICROBIOLOGY - GENERAL ORDERABLES Final Result [facility] [address] [place] [phone] documented in this encounter Visit Diagnoses Not on filedocumented in this encounter Additional Health Concerns Assessment Noted Time PHQ-9 Depression Total Score: 9 04/18/20 25 11:57 AM EDT documented as of this encounter Care Teams Qa Auditor Relationship Specialty Start Date End Date Jeni Garcia MD [address] [place] [address] PCP - General Family Medicine 12/16/15 documented as of this encounter
--- OUTSIDE RECORDS SUMMARY | 2025-10-07 15:49 | XMS_ITS | Encounter Summary ---
Author Organization [employer] Address [address] [facility] 7t [place] [address] Care Team Providers Care Crusher Operator Name Role Phone Jeni Garcia MD Primary Care Provider + Encounter Details Date Type Department Care Team (Latest Contact Info) Description 09/03/2025 Results Follow-Up [facility] MEDICINE [address] [place], [place] [phone] Jeni Garcia MD [address] [place], [place] [phone] Complete Blood Count Manual Diff, Comprehensive Metabolic [...] Description 10/30/2025 10:30 AM EST Office Visit [facility] [address] [place] [phone] Jeni Garcia MD [address] [place] [phone] 11/01/2025 9:00 AM EST Medication Management [facility] [address] [place] [phone] PierMargarita Rodney PharmD [address] [place] [address] 12/05/2025 11:15 AM EST Office Visit [facility] [address] [place] [address] [phone] Jeni Garcia MD [address] [place], [place] [phone] Scheduled Orders Name Type Priority Associated Diagnoses [...] documented as of this encounter Care Teams Crusher Operator Relationship Specialty Start Date End Date Jeni Garcia MD [address] [place] [phone] PCP - General Family Medicine 12/16/15 documented as of this encounter
--- OUTSIDE RECORDS SUMMARY | 2025-10-07 15:49 | XMS_ITS | Clinical Summary ---
Author Organization [facility] Address [address] [place] [address] Phone Care Team Providers Care Digital Account Director Name Role Phone Jeni Garcia MD Primary Care Provider + [phone] Allergies Active Allergy Reactions Criticality Noted Date [...] PM EDT Office Visit [facility] [place] [address] [facility] [address] [place] [phone] Eloisa Torres NP Post-traumatic osteoarthritis of [...] AM EST Office Visit [facility] - [place] [phone] [phone] Lazaro Saleh MD [address] [address] Health Maintenance Due Date Last Done Comments [...] Insurance MEDICAID - [place] [id number] Advance Directives Documents on File Type Date Recorded Patient Business Intelligence Developer Expl anation Health Care Decision (hx) [...] (hx) 03/27/2019 AD CEJA DIRECTIVE Care Teams Digital Account Director Relationship Specialty Start Date End Date Jeni Garcia MD [address] [place] [phone] PCP - General 05/19/21
--- OUTSIDE RECORDS SUMMARY | 2025-10-07 15:49 | XMS_ITS | Clinical Summary ---
Author Organization [employer] Address [address] [facility] [address] [place] [address] Care Team Providers Care Air Hammer Operator Name Role Phone Jeni Garcia MD [...] needed for mild pain 06/06/20 15 Active folic acid (Folvite) 1 MG tablet TAKE 1 TABLET BY MOUTH EVERY DAY 08/10/20 22 Active methotrexate 2.5 MG tablet TAKE 8 TABLETS ONCE WEEKLY ON Mondays09/23/20 22 Active montelukast (Singulair) 10 MG tablet TAKE 1 TABLET BY MOUTH EVERY EVENING 08/24/20 22 Active albuterol 108 (90 Base) MCG/ACT inhaler Inhale 2 puffs every 4 (four) hours if needed for wheezing or shortness of breath. 18 g 2 08/19/20 23 Active betamethasone valerate (Valisone) 0.1 % cream APPLY TOPICALLY TWICE A DAY 30 g 1 08/24/20 24 Active albuterol 1.25 MG/3ML nebulizer solution Take 3 mL (1.25 mg) by nebulization every 6 (six) hours if needed for wheezing. 75 mL 3 12/07/19 25 026 Active cholecalciferol (Vitamin D-3) 125 MCG (5000 UT) capsule Take 1 capsule by mouth. Every Tuesday and 12/19/19 25 Active clopidogrel (Plavix) 75 MG tablet Take 1 tablet (75 mg) by mouth Once per day. 30 tablet 01/04/20 25 Active nitroglycerin (Nitrostat) 0.[address] 1 tablet (0.4 mg) under the tongue every 5 (five) minutes if needed for chest pain. 90 tablet 01/04/20 25 026 Active gabapentin (Neurontin) 100 MG capsuleIndications :Degeneration of lumbar intervertebral disc,Meralgia paresthetica of right side TAKE 1 CAPSULE BY MOUTH THREE TIMES A DAY 90 capsule 01/23/20 25 Active levothyroxine (Synthroid, Levoxyl) 50 MCG tabletIndications: Acquired hypothyroidism TAKE 1 TABLET BY MOUTH EVERY DAY IN THE MORNING 90 tablet 1 04/29/20 25 Active fluticasone (Flonase) 50 MCG/ACT nasal spray SPRAY 2 SPRAYS INTO EACH NOSTRIL IN THE MORNING SHAKE GENTLY/PRIME BEFORE 1ST USE&CLEAN TIP 48 mL 06/13/20 25 Active ferrous sulfate 325 (65 Fe) MG EC tablet Take 1 tablet by mouth Once per day. 06/14/20 25 Active aspirin 81 MG EC tablet Take 81 mg by mouth Once per day. Active atorvastatin (Lipitor) 40 MG tablet Take 40 mg by mouth Once per day. Active senna-docusate sodium (Senokot-S) 8.6-50 MG tablet Take 1 tablet by mouth Once per day. 30 tablet 06/24/20 25 026 Active budesonide-formote rol (Symbicort) 160-4.5 MCG/ACT inhaler Inhale 2 puffs in the morning and at bedtime. 1 each 06/25/20 25 026 Active Stye 0.5-0.6 % solution ADMINISTER 2 DROPS INTO AFFECTED EYE(S) IF NEEDED IN THE MORNING, AT NOON, AND AT BEDTIME (DRY EYE/IRRITATION). 15 mL 3 06/27/20 25 Active olmesartan-hydroCH LOROthiazide (BENIcar HCT) 20-12.5 MG tablet Take 1 tablet by mouth Once per day. 30 tablet 11 07/22/20 25 026 Active omeprazole (PriLOSEC) [address] capsule Take 1 capsule (20 mg) by mouth before breakfast and before evening meal. Do not crush or chew. 60 capsule 11 07/22/20 Active Diclofenac Sodium 1 % gel APPLY 1 INCH TOPICALLY IN THE MORNING AND AT BEDTIME NEEDED FOR PAIN 100 g 08/21/20 Active carvedilol (Coreg) 6.25 MG tabletIndications: Primary hypertension TAKE 1 TABLET BY MOUTH WITH BREAKFAST AND 1 WITH EVENING MEAL 180 tablet 09/04/20 Active nitrofurantoin, macrocrystal-monoh ydrate, (Macrobid) 100 MG capsule Take 1 capsule (100 mg) by mouth 2 times daily for 7 days. 14 capsule 09/03/20 025 Active Problems Problem Noted Date Diagnosed Date [...] and follow-up with me next month Meningioma ([facility]/HCC) 06/24/2025 Assessment & Plan (06/24/2025 6:18 PM [...] (05/28/2025 11:33 AM EDT): Case presented [place] [facility] [place], patient went through EMS Hematoma of groin 04/18/2025 Assessment & Plan (04/18/2025 3:27 PM EDT): On catheterization site. Patient is improving, advised to put ice on affected area Iron supplementation is off for now due to constipation and GERD symptoms, she will restart iron supplementation in 1 week and follow-up hemoglobin in 3 months Coronary artery disease invo lving port gamble coronary artery of [place] heart 01/03/2025 Overview (09/03/2025): S/P NSTEMI + PTCA to RCA on 11/2023 in [place] while in a Cruise Assessment & Plan [...] low back pain 06/28/2017 Rheumatoid arthritis, adult ([facility]) 06/28/2017 Assessment & Plan (04/18/2025 3:26 PM [...] Singulair and albuterol as needed Follow-up with weld fitter Assessment & Plan (01/03/2025 1:36 PM EDT): [...] rest at home. FU on Tuesday with Associate Product Manager. Will call tomorrow for health status check. [...] exercise, life style modifications, diet, referral to student specialist. Discussed re lower calorie intake, increase [...] Encounters Date Type Department Care Team Description 10/07/2025 Orders Only GENERIC EXTERNAL DATA DEPARTMENT Provider, Generic External Data 09/27/2025 Orders Only GENERIC EXTERNAL DATA DEPARTMENT Provider, Generic External Data 09/05/2025 Telephone [facility] [address] [place] [address] Jeni Garcia MD preop 09/04/2025 Refill [facility] [address] [place] [address] Mimi Yao MD Primary hypertension 09/03/2025 11:45 AM EST Office Visit [facility] [address] [place] [address] Jeni Garcia MD Primary hypertension (Primary Dx); Memory impairment; Encounter for immunization; Coronary artery disease involving port gamble coronary artery of port gam[place] heart without angina pectoris 09/03/2025 Results Follow-Up [facility] [address] [place] [address] Jeni Garcia MD Urinalysis, Complete, with Reflex to Culture 09/03/2025 Results Follow-Up [facility] [address] [place] [address] Jeni Garcia MD Complete Blood Count Manual Diff, Comprehensive Metabolic Panel, Lactate Dehydrogenase (LD) 09/03/2025 Orders Only [facility] [address] [place] [address] Jeni Garcia MD 09/03/2025 Travel 09/02/2025 Telephone [facility] [address] [place] [address] Jeni Garcia MD chart prep 08/21/2025 Refill [facility] [address] [place] [address] Jeni Garcia MD 07/22/2025 1:30 PM EDT Office Visit [facility] [address] [place] [address] Jeni Garcia MD Hypotension, unspecified hypotension type (Primary Dx); Gastrointestinal hemorrhage with melena; Primary hypertension 07/22/2025 Telephone [facility] [address] [place] [address] Jeni Garcia MD Chart prep 07/22/2025 Telephone [facility] [address] [place] [address] Jeni Garcia MD Nurse Triage 07/22/2025 Telephone [facility] [address] [place] [address] Jeni Garcia MD 07/22/2025 Travel 07/21/2025 Refill [facility] [address] [place] [phone] Jeni Garcia MD from Last 3 Months Immunizations Immunization [...] Description 10/30/2025 10:30 AM EST Office Visit [facility] [address] [place] [address] Jeni Garcia MD [address] [place] [address] 11/01/2025 9:00 AM EST Medication Management [facility] [address] [place] [phone] Margarita Baumann, PharmD [address] [place], [place] [phone] 12/05/2025 11:15 AM EST Office Visit [facility] [address] [place] [address] [phone] Jeni Garcia MD [address] [place], [place] [phone] Health Maintenance Due Date Last Done Comments [...] QL NAAT Routine 10/07/2025 12:41 PM EST COMPREHENSIVE METABOLIC PANEL Routine 09/27/2025 5:48 PM [...] 10:20 AM EDT Coronary artery disease of port gam[place] artery of port gam[place] heart with stable angina pectoris (CMS/HCC) PROPHYLAXIS [...] Recently Relevant to Health Maintenance Results * SARS-CoV-2 RNA, Influenza A/B, and RSV RNA, Ql NAAT (10/07/2025 12:41 PM EST) Influenza A PCR NEGATIVE Negative [facility] Influenza B PCR NEGATIVE Negative [facility] Resp Syncy Virus RNA Qual PCR NEGATIVE Negative [facility] SARS COV2 PCR NEGATIVE Negative [...] use by authorized laboratories.Testing performed on the [facility] GeneXpert utilizingreal-time RT-PCR.All SARS CoV2 and positive influenza A/B results arereported to [facility]. 10/07/2025 12:4 1 PM EST 10/07/2025 2:13 PM EST us Generic External Data Provider LAB MICROBIOLOGY - GENERAL ORDERABLES Final Result [facility] [address] [place] [address] [phone] * Comprehensive Metabolic Panel (09/27/2025 5:48 PM EST) Only the most recent of2 resultswithin the time period is included. Sodium 139 135 - 145 mmol/L [facility] Potassium 3.9 3.3 - 5.1 mmol/L [facility] Chloride 105 96 - 108 mmol/L [facility] Carbon Dioxide 25 22 - 29 mmol/L [facility] Anion Gap 13 12 - 20 [facility] Urea Nitrogen (BUN) 13 9 - 16 mg/dL [facility] Creatinine, Serum 0.91 0.5 - 1.4 mg/dL [facility] Creatinine Clr Calc Pharmacy 41.5 [facility] Comment:Provided height and weight: 149.86 cm,73.3 kg.eGFR (calculated from the MDRD study equation) and eCrCl(calculated from the Cockcroft-Gault equation) are based ondifferent parameters and may not yield comparable results.If eCrCl result is absurd, please check patient'sheight/weight. Estimated Glomerular Filt Rate 59 [facility] Comment:Chronic Kidney Disea se: Estimated GFR < 60 mL/min/[id number] Kidney Disease: Estimated GFR < 15 mL/min/1.73m2 Glucose 103 60 - 115 mg/dL [facility] Calcium 9.3 8.4 - 10.2 mg/dL [facility] Bilirubin, Total 0.6 0.0 - 1.0 mg/dL [facility] Aspartate Amino Transferase 20 5 - 31 U/L [facility] Alanine Aminotransferase 12 0 - 31 U/L [facility] Total Protein 7.2 6.5 - 8.0 g/dL [facility] Albumin Level 3.9 3.5 - 5.0 g/dL [facility] Alkaline Phosphatase 67 39 - 117 U/L [facility] 09/27/2025 5:48 PM EST 09/27/2025 5:52 PM EST us Generic External Data Provider LAB BLOOD ORDERAB LES Final Result Performing Organization Address City/State/[facility] Co de Phone Number [facility] [address] [place] [phone] * XR Shoulder 2+ Views Left (09/27/2025 12:35 PM EST) Anatomical Region Laterality Modality Upper Extremities, Shoulder Left Radi ographic Imaging 09/27/2025 12:3 5 PM EST Narrative 09/27/2025 12:55 PM EST [place] [address] XRay Report Signed Patient: Joan rAmendariz MR#: [id number] : 1945 Acct:[id number] Age/Sex: 80 / F ADM Date: 09/27/25 Loc: HO.ED Attending Dr: Ordering Physician: Alison Gaytan Date of Service: 09/27/25 Procedure(s): XR shoulder LT min 2V Accession Number(s): [id number] cc: Jeni Garcia MD; Alison Gaytan Reason [...] Saleh MD Signed By: <Electronically signed by Wlid Saleh MD in OV> 09/27/25 1252 DD/ 1235 TD/TT: 09/27/25 1238 Brass Molder: Procedure Note Donotuseinterpreter, Image - 09/27/2025 [place] [address] XRay Report Signed Patient: Joan Armendariz RMR#: [id number] : 1945cct:[id number] Age/Sex: 80 / FADM Date: 09/27/25 Loc: .ED Attending Dr: Ordering Physician: Alison Gaytan Date of Service: 09/27/25 Procedure(s): XR shoulder LT min 2V Accession Number(s): [id number] cc: Jeni Garcia MD; Alison Gaytan Reason [...] 09/27/25 1252 DD/ 1235 TD/TT: 09/27/25 1238 Brass Molder: [facility] External Provider IMG XR PROCEDURES Final Result * XR Chest 2 Views (09/27/2025 12:33 PM EST) Anatomical Region Laterality Modality Chest Radiographic Tamiko ging 09/27/2025 12:3 3 PM EST Narrative 09/27/2025 1:00 PM EST [address] [address] XRay Report Signed Patient: Joan Armendariz MR#: [id number] : 1945 Acct:[id number] Age/Sex: 80 / F ADM Date: 09/27/25 Loc: HO.ED Attending Dr: Ordering Physician: Alison Gaytan Date of Service: 09/27/25 Procedure(s): XR chest 2V Accession Number(s): [id number] cc: Jeni Garcia MD; Alison Gaytan Reason [...] 09/27/25 1257 DD/ 1233 TD/TT: 09/27/25 1238 Brass Molder: Procedure Note Donotuseinterpreter, Image - 09/27/[address] [address] XRay Report Signed Patient: Joan Armendariz RMR#: [id number] : 1945cct:[id number] Age/Sex: 80 / FADM Date: 09/27/25 Loc: HO.ED Attending Dr: Ordering Physician: Alison Gaytan Date of Service: 09/27/25 Procedure(s): XR chest 2V Accession Number(s): [id number] cc: Jeni Garcia MD; Alison Gaytan Reason [...] 09/27/25 1257 DD/ 1233 TD/TT: 09/27/25 1238 Brass Molder: [facility] External Provider IMG XR PROCEDURES Final Result * High Sensitivity Troponin I (09/27/2025 12:28 PM EST) [facility] TROPONIN I HIGH SENSITIVITY 2.7 <3.5 - 17.0 ng/L [facility] Comment:The [place] high sens itivity Troponin-I results should beused in conjunction with other diagnostic information suchas ECG, clinical observations and information, and patientsymptoms to aid in the diagnosis of CT. 09/27/2025 12:2 8 PM EST 09/27/2025 12:31 PM EST Generic External Data Provider LAB BLOOD ORDERAB LES Final Result [facility] [address] [place] [address] [phone] * (ABNORMAL) CBC auto differential (09/27/2025 12:28 PM EST) Only the most recent of2 resultswithin the time period is included. [facility] White Blood Count 6.7 4.8 - 10.8 X10*3/uL [facility] Red Blood Count 3.80(L) 4.20 - 5.50 X10*6/uL [facility] Hemoglobin 11.0(L) 12.0 - 16.0 g/dl [facility] Hematocrit 35.7(L) 37.0 - 47.0 % [facility] Mean Corpuscular Volume 93.9 80.0 - 98.0 fL [facility] Mean Corpuscular Hemoglobin 28.9 27.0 - 33.0 pg [facility] Mean Corpuscular HGB Conc 30.8(L) 31.0 - 35.0 g/dl [facility] Red Cell Distribution Width 20.1(H) 11.0 - 16.0 % [facility] Platelet Count 152(L) 160 - 400 X10*3/uL [facility] Mean Platelet Volume 11.5 9.4 - 12.3 fL [facility] Neutrophils Percent Auto 61.8 45 - 73 % [facility] Imm Gran Pct Auto 0.3 0.0 - 0.4 % [facility] Lymphocytes Percent Auto 21.6 20 - 40 % [facility] Monocytes Percent Auto 6.3 2 - 11 % [facility] Eosinophils Percent Auto 9.1(H) 0 - 4 % [facility] Basophils Percent Auto 0.9 0 - 2 % [facility] NRBC Pct Auto 0.0 0.0 - 0.2 /100WBC [facility] Neutrophils Absolute Auto 4.2 2.0 - 8.3 x10*3/uL [facility] Imm Gran Abs Auto 0.02 0.00 - 0.03 X10*3/uL [facility] Lymphocytes Absolute Auto 1.5 1.2 - 4.9 X10*3/uL [facility] Monocytes Absolute Auto 0.4 0.1 - 1.2 X10*3/uL [facility] Eosinophils Absolute Auto 0.6(H) 0.0 - 0.4 X10*3/uL [facility] Basophils Absolute Auto 0.1 0.0 - 0.2 X10*3/uL [facility] NRBC Abs Auto 0.000 0.0 - 0.012 X10*3/uL [facility] 09/27/2025 12:2 8 PM EST 09/27/2025 12:31 PM EST us Generic External Data Provider LAB BLOOD ORDERAB LES Final Result [facility] [address] [place] [phone] * [place] Esophagus Barium Swallow w/Air (09/09/2025 10:02 AM EST) Anatomical Region Laterality Modality Head, Neck Radiographic Tamiko ging 09/09/2025 10:0 2 AM EST Narrative 09/09/2025 2:45 PM EST [address] [address] Fluoroscopy Report Signed Patient: Joan Armendariz MR#: [id number] : 1945 Acct:[id number] Age/Sex: 80 / F ADM Date: 09/09/25 Loc: MAGGIE Attending Dr: Frederick Gerardo MD Ordering Physician: Frederick Gerardo MD Date of Service: 09/09/25 Procedure(s): [place] barium swallow with air Accession Number(s): [id number] cc: Jeni Garcia MD; Frederick Gerardo MD [...] by: Dilma Solomon MD 09/09/2025 02:42 PM [facility] Dictated By: Dilma Solomon MD Signed By: <Electronically signed by Dilma Solomon MD in OV> 09/09/25 1442 DD/ 1002 TD/TT: 09/09/25 1020 Brass Molder: ALEJO Procedure Note Donotuseinterpreter, Image - 09/09/2025 [facility] [address] [place] [address] Fluoroscopy Report Signed Patient: Joan Armendariz RMR#: [id number] : 1945cct:[id number] Age/Sex: 80 / FADM Date: 09/09/25 Loc: MAGGIE Attending Dr: Frederick Gerardo MD Ordering Physician: Frederick Gerardo MD Date of Service: 09/09/25 Procedure(s): [place] barium swallow with air Accession Number(s): [id number] cc: Jeni Garcia MD; Frederick Gerardo MD [...] 09/09/25 1442 DD/ 1002 TD/TT: 09/09/25 1020 Brass Molder: ALEJO [facility] External Provider IMG FLU OROSCOPY PROCEDURES Final Result * (ABNORMAL) Complete Blood Count Manual Diff (09/03/2025 11:32 AM EST) White Blood Count 7.6 4.8 - 10.8 X10*3/uL [facility] Red Blood Count 3.68(L) 4.20 - 5.50 X10*6/uL [facility] Hemoglobin 10.1(L) 12.0 - 16.0 g/dl [facility] Hematocrit 32.8(L) 37.0 - 47.0 % [facility] Mean Corpuscular Volume 89.1 80.0 - 98.0 fL [facility] Mean Corpuscular Hemoglobin 27.4 27.0 - 33.0 pg [facility] Mean Corpuscular HGB Conc 30.8(L) 31.0 - 35.0 g/dl [facility] Red Cell Distribution Width 24.8(H) 11.0 - 16.0 % [facility] Platelet Count 235 160 - 400 X10*3/uL [facility] Mean Platelet Volume 11.0 9.4 - 12.3 fL [facility] NRBC Pct Auto 0.0 0.0 - 0.2 /100WBC [facility] NRBC Abs Auto 0.000 0.0 - 0.012 X10*3/uL [facility] Neutrophils % Manual 54 45 - 73 % [facility] Band Neutrophils Percent 0(L) 3 - 5 % [facility] Lymphocytes Percent Manual 24 20 - 40 % [facility] Atypical Lymphs Percent Manual 2 0 - 6 % [facility] Monocytes Percent Manual 5 2 - 11 % [facility] EOSINOPHILS % MANUAL 15(H) 0 - 4 % [facility] NEUTROPHILS ABSOLUTE MANUAL 4.1 2.0 - 8.3 X10*3/uL [facility] LYMPHOCYTES ABSOLUTE MANUAL 1.8 1.2 - 4.9 X10*3/uL [facility] Atypical Lymph Absolute Manual 0.2 x10*3/uL [facility] MONOCYTES ABSOLUTE MANUAL 0.4 0.1 - 1.2 X10*3/uL [facility] EOSINOPHILS ABSOLUTE MANUAL 1.1(H) 0.0 - 0.4 X10*3/uL [facility] Platelet Estimate NORMAL NORMAL [facility] Large Platelet PRESENT [facility] Platelet Morphology Comment NOTED [facility] RBC Morphology NOTED [facility] POLYCHROMASIA 1+ (0-2) /OIF [facility] Hypochromasia 1+ (5-14) /F [facility] Macrocytosis 1+ (5-14) /OIF [facility] Ovalocytes 1+ (5-14) /F [facility] Maximilian Cells 1+ (0-2) /OIF [facility] 09/03/2025 11:3 2 AM EST 09/03/2025 1:17 PM EST Jeni Garcia MD LAB BLOOD ORDERABLES Fin al Result Performing Organization Address [facility]/ZIP Co de Phone Number [facility] [address] [place] [phone] * (ABNORMAL) Urinalysis, Complete, with Reflex to Culture (09/03/2025 11:32 AM EST) Color Urine Yellow [facility] Appearance Urine Clear [facility] PH 7.0 5.0 - 9.0 [facility] Glucose Urine UA Negative Negative mg/dL [facility] Urine Blood Negative Negative [facility] Specific [address] - Urine 1.010 1.005 - 1.025 [facility] Urine Protein Negative Neg-Trace mg/dL [facility] Urine Ketones Negative Negative mg/dL [facility] Nitrite Urine Negative Negative [facility] Leukocyte Esterase Urine Trace(A) Negative [facility] RBC Urine 0-2 0 - 2 /HPF [facility] Urine WBC 0-5 0 - 5 /HPF [facility] Urine Squamous Epithelial Cell 0-2 0 - 2 /HPF [facility] Urine Bacteria None Seen None Seen [facility] Hyaline Casts, Urine 0-2 0 - 2 /LPF [facility] Urine 09/03/2025 11:3 2 AM EST 09/03/2025 1:19 PM EST Narrative [facility] - 09/03/2025 1:38 PM EST Urine, Clean Catch Jeni Garcia MD LAB URINE ORDERABLES Fin al Result Performing Organization Address [facility]/ZIP Co de Phone Number [facility] [address] [place] [phone] * (ABNORMAL) Lactate Dehydrogenase (LD) (09/03/2025 11:32 AM EST) Lactate Dehydrogenase 311(H) 122 - 220 U/L [facility] 09/03/2025 11:3 2 AM EST 09/03/2025 1:06 PM EST Generic External Data Provider LAB BLOOD ORDERAB LES Final Result [facility] [address] [place] [phone] * (ABNORMAL) POCT Hemoglobin (07/22/2025 1:25 PM EDT) [facility] Hemoglobin 10.1(A) 12.0 - 15.0 QC Media Lot # [id number] Lot# Expiration Date Blood 07/22/2025 1:25 PM EDT Jeni Garcia MD POINT OF CARE TEST ENTER /EDIT ORDERABLES Final Result * Referral to Hematology / Oncology (07/19/2025) Jeni Garcia MD OUTPATIENT REFERRAL ORDE RABLES Final Result * POCT Hgb A1c (06/24/2025 10:20 AM EDT) Pathologist [facility] Hemoglobin A1C 5.4 4.0 - 5.7 % QC Media Lot # [id number] Lot# Expiration Date Blood 06/24/2025 10:2 0 AM EDT Jeni Garcia MD POINT OF CARE TEST ENTER /EDIT ORDERABLES Final Result * Lipid Panel with Reflex to Direct LDL (02/15/2023 11:09 AM EDT) Pathologist [facility] Cholesterol, Total 141 <200 mg/dL [facility] [place] [facility] HDL Cholesterol 54 > OR = 50 mg/dL [facility] [place] [facility] Triglycerides 99 <150 mg/dL [facility] [place] [facility] LDL Cholesterol 69 mg/dL (calc) [facility] [place] [facility] Comment: Reference range: <100 Desirable range <100 mg/dL for primary prevention; <70 mg/dL for patients with CHD or diabetic patients with > or = 2 CHD risk factors. LDL-C is now calculated using the Rosalio calculation, which is a validated novel method providing better accuracy than the Friedewald equation in the estimation of LDL-C. Bebeto SS et al. [place]. 2013;310(19): 7632-2822 (http://education.AgilOne/faq/QLT887) Chol/HDLC Ratio 2.6 <5.0 (calc) [facility] [place] [facility] Non-HDL Cholesterol 87 <130 mg/dL (calc) [facility] [place] [facility] Comment: For patients with diabetes plus 1 major ASCVD risk factor, treating to a non-HDL-C goal of <100 mg/dL (LDL-C of <70 mg/dL) is considered a therapeutic option. 02/15/2023 11:0 9 AM EDT 02/15/2023 11:10 AM EDT Narrative [facility] - 02/16/2023 2:24 AM EDT FASTING:NO FASTING: NO us Jeni Garcia MD LAB BLOOD ORDERABLES Fin al Result [facility] [address] [place] [phone] [facility] [place] [facility] [address] [place] [phone] from Last 3 Months or Most Recently Relevant to Health Maintenance Insurance [facility] DUAL COMPLETE [facility] STANDARD DENTAL - [facility] [address] [address] [place] [address] OR Care Teams Air Hammer Operator Relationship Specialty Start Date End Date Jeni Garcia MD [address] [place] [phone] PCP - General Family Medicine 12/16/15
--- OUTSIDE RECORDS SUMMARY | 2025-10-07 15:49 | XMS_ITS | Encounter Summary ---
Author Organization [employer] Address [address] [place] [address] 7 [place] [address] Care Team Providers Care Assistant Professor Surgical Technology Name Role Phone Jeni Garcia MD Primary Care Provider + Encounter Details Date Type Department Care Team (Latest Contact Info) Description 04/28/2021 Abstract [facility] CONVERSIONS Dental, Provider, DDS Social History Tobacco [...] 10/30/2025 10:30 AM EST Office Visit [address] [address] Jeni Garcia MD [address] [place] [address] 11/01/2025 9:00 AM EST Medication Management [facility] MEDICINE [address] [place] [address] Margarita Baumann, PharmD [address] [place] [address] 12/05/2025 11:15 AM EST Office Visit [facility] MEDICINE [address] [place] [address] Jeni Garcia MD [address] [place] [address] documented as of this encounter Visit Diagnoses Not on filedocumented in this encounter Care Teams Assistant Professor Surgical Technology Relationship Specialty Start Date End Date Jeni Garcia MD [address] [place] [address] PCP - General Family Medicine 12/16/15 documented as of this encounter
--- OUTSIDE RECORDS SUMMARY | 2025-10-07 15:49 | XMS_ITS | Encounter Summary ---
Author Organization [employer] Address [address] [place] [address] 7t [place] [address] Care Team Providers Care Machine Stacker Name Role Phone Jeni Garcia MD Primary Care Provider + Reason for Visit * Reason Onset Date Comments DR MAK 05/31/2025 Encounter Details Date Type Department Care Team ([facility] st Contact Info) Description 05/31/2025 Telephone [facility] ADULT DENTAL [address] [place], [place] [phone] Carie Phelps, DDS [address] [place], [place] [phone] DR MAK Social History Tobacco Use Types [...] can return the call to her at [phone] documented in this encounter Plan of Treatment Upcoming Encounters Date Type Department Care Team (Late st Contact Info) Description 10/30/2025 10:30 AM EST Office Visit [address] [address] Jeni Garcia MD [address] [place] [address] 11/01/2025 9:00 AM EST Medication Management [facility] MEDICINE [address] [place] [address] Margarita Baumann, XinD [address] [place] [address] 12/05/2025 11:15 AM EST Office Visit [address] [address] Jeni Garcia MD [address] [place] [address] documented as of this encounter Visit Diagnoses Not on filedocumented in this encounter Additional Health Concerns Assessment Noted Time PHQ-9 Depression Total Score: 9 04/18/20 25 11:57 AM EDT documented as of this encounter Care Teams Machine Stacker Relationship Specialty Start Date End Date Jeni Garcia MD [address] [place] [address] PCP - General Family Medicine 12/16/15 documented as of this encounter
--- OUTSIDE RECORDS SUMMARY | 2025-10-07 15:49 | XMS_ITS | Encounter Summary ---
Author Organization [employer] Address [address] [place] [address] 7t [place] [address] Care Team Providers Care Race Steward Name Role Phone Jeni Garcia MD Primary Care Provider + Encounter Details Date Type Department Care Team (Late Contact Info) Description 02/25/2023 Orders Only [facility] MEDICINE [address] [place] [address] [phone] Jeni Garcia MD [address] [place] [address] [phone] Obstructive sleep apnea syndrome (Primary Dx) Social [...] Description 10/30/2025 10:30 AM EST Office Visit [facility] MEDICINE [address] [place] [address] Jeni Garcia MD [address] [place] [address] 11/01/2025 9:00 AM EST Medication Management [address] [address] Margarita Baumann, PharmD [address] [place] [address] 12/05/2025 11:15 AM EST Office Visit [address] [phone] Jeni Garcia MD [address] [place] [address] documented as of this encounter Visit Diagnoses Diagnosis Obstructive sleep apnea syndrome- Primary Obstructive sleep apnea (adult) (pediatric) documented in this encounter Additional Health Concerns Assessment Noted Time PHQ-9 Depression Total Score: 0 11/16/19 23 10:53 AM EST documented as of this encounter Care Teams Race Steward Relationship Specialty Start Date End Date Jeni Garcia MD [address] [place] [address] PCP - General Family Medicine 12/16/15 documented as of this encounter
--- OUTSIDE RECORDS SUMMARY | 2025-10-07 15:49 | XMS_ITS | Encounter Summary ---
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 10/05/2024 12:26 PM EST [facility] at 1226 EST Clinical Information Heartburn,esophag eal reflux symptoms that persist despite appropriate therapy Finding:R/O oliver's 10/05/2024 12:26 PM EST [facility] Gross Description A. Esophagus, [...] on one slide. 10/05/2024 12:26 PM EST [facility] Disclaimer Unless otherwise specified, all tissue is 10% NB formalin fixed and paraffin embedded. 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
--- OUTSIDE RECORDS SUMMARY | 2025-10-07 15:49 | XMS_ITS | Encounter Summary ---
Author Organization [employer] Address [address] [place] [address] 7[address] [place] [address] Care Team Providers Care Manager Account Management Name Role Phone Jeni Garcia MD Primary Care Provider + Reason for Referral * Consultation (Routine) - Authorized Specialty Diagnoses / Procedures Referred By Contac t Referred To Contact Pharmacy Diagnoses Hypertension Antonia Harper MD 230 [place] [address] Phone: tel: fax: Referral ID Status Reason Start Date Expiration Date Visits Requested Visits Authorized [id number] Authorized Continuity of Care 06/20/2025 06/20/2026 6 6 Encounter Details Date Type Department Care Team (Late st Contact Info) Description 06/20/2025 Orders Only [facility] MEDICINE [address] [place], [place] [phone] Jeni Garcia MD 230 [place], [place] [phone] Hypertension (Primary Dx) Social History Tobacco Use [...] Description 10/30/2025 10:30 AM EST Office Visit [address] [address] Jeni Garcia MD [address] [place] [address] 11/01/2025 9:00 AM EST Medication Management [address] [address] Margarita Baumann, XinD [address] [place] [address] 12/05/2025 11:15 AM EST Office Visit [address] [address] Jeni Garcia MD 230 [place] [address] Scheduled Referrals Name Type Priority Associated Diagnoses Orde r Schedule Referral to Pharmacy MT Outpatient Referral Routine Hypertension Ordered: 06/20/2025 documented as of this encounter Visit Diagnoses Diagnosis Hypertension- Primary Unspecified essential hypertension documented in this encounter Additional Health Concerns Assessment Noted Time PHQ-9 Depression Total Score: 9 04/18/20 25 11:57 AM EDT documented as of this encounter Care Teams Manager Account Management Relationship Specialty Start Date End Date Jeni Garcia MD 230 [place] [address] PCP - General Family Medicine 12/16/15 documented as of this encounter
--- OUTSIDE RECORDS SUMMARY | 2025-10-07 15:49 | XMS_ITS | Clinical Summary ---
Author Organization [facility] Address 100 [facility] 20 [address] [place] [address] Phone Care Team Providers Care Cheesemaker Name Role Phone Jeni Garcia MD Primary Care Provider + [phone] Allergies Active Allergy Reactions Criticality Noted Date Comments Codeine 09/03/2021 Hydrocodone Itching 10/09/2014 Morphine 09/03/2021 Oxycodone Hives 09/04/2013 Oxycodone-Acetaminophen 09/03/2021 Medications methotrexate 2.5 MG tabletIndication s:Essential (primary) hypertension Take 1 tablet by mouth daily 07/02/20 21 Active omeprazole (PriLOSEC) [address] capsuleIndicatio ns:Essential (primary) hypertension Take 1 capsule by mouth 1 (one) time each day 06/24/20 21 Active albuterol HFA (PROVENTIL HFA;VENTOLIN HFA) 108 (90 Base) MCG/ACT inhalerIndicatio ns:Essential (primary) hypertension Inhale 2 puffs every 6 (six) hours if needed for wheezing Active acetaminophen (TYLENOL) 325 MG tabletIndication s:Essential (primary) hypertension Take by mouth every 6 (six) hours if needed for mild pain Active montelukast (SINGULAIR) 10 MG tabletIndication s:Essential (primary) hypertension Take 10 mg by mouth every night Active gabapentin (NEURONTIN) 300 MG capsule Take 1 capsule (300 mg total) by mouth 1 (one) time each day with dinner 30 capsule 11 03/04/20 22 Active Cholecalciferol (Vitamin D3) 125 MCG (5000 UT) capsule TAKE 1 CAPSULE BY MOUTH EVERY TUESDAY AND TUESDAY 24 capsule 1 06/24/20 25 Active carvedilol (COREG) 6.25 MG tablet TAKE 1 TABLET BY MOUTH WITH BREAKFAST AND 1 WITH EVENING MEAL 03/28/20 25 Active clopidogrel (PLAVIX) 75 MG tablet Take 75 mg by mouth 1 (one) time each day Active aspirin (ST ULCA) 81 MG EC tablet Take 81 mg by mouth in the morning. 01/29/20 25 Active ferrous sulfate 325 (65 Fe) MG EC tablet Take 1 tablet by mouth in the morning. 06/14/20 25 Active Senexon-S 8.6-50 MG per tablet Take 1 tablet by mouth 1 (one) time each day 09/18/20 25 Active lactulose (CHRONULAC) 10 GM/15ML solution Take 10 g by mouth in the morning and 10 g in the evening. 05/28/20 25 Active sucralfate (CARAFATE) 1 g tablet Take 1 g by mouth in the morning and 1 g at noon and 1 g in the evening and 1 g before bedtime. Active fluticasone (FLONASE) 50 MCG/ACT nasal spray Administer 50 mcg into affected nostril(s) 04/04/20 25 Active Symbicort 160-4.5 MCG/ACT inhaler Inhale 2 puffs in the morning and 2 puffs before bedtime. Active atorvastatin (LIPITOR) 40 MG tablet Take 40 mg by mouth 1 (one) time each day Active levothyroxine (SYNTHROID, LEVOTHROID) 25 MCG tabletIndication s:Essential (primary) hypertension Take 5 tablets (125 mcg total) by mouth in the morning. 10/01/20 25 Active folic acid (FOLVITE) 1 MG tabletIndication s:Essential (primary) hypertension Take 1 tablet by mouth daily 07/02/20 025 Discontinued levothyroxine (SYNTHROID, LEVOTHROID) 25 MCG tabletIndication s:Essential (primary) hypertension Take 1 tablet by mouth daily 06/01/20 025 Discontinued losartan (COZAAR) 100 MG tabletIndication s:Essential (primary) hypertension Take 100 mg by mouth 1 (one) time each day 025 Discontinued meclizine (ANTIVERT) 25 MG tablet [place] 1 TABLETA POR LA BOCA STEVE VECES AL EDITA CUANDO SEA NECESARIO PARA MAREO 08/24/20 21 025 Discontinued Advair HFA 115-21 MCG/ACT inhaler INHALE 2 PUFF EVERY 12 HOURS FOR 30 DAYS 03/29/20 23 025 Discontinued Active Problems Problem Noted Date [...] Encounters Date Type Department Care Team Description 10/02/2025 Orders Only [facility] [address] [facility] 204 [place] [address] Luke Quinn MD Hypertension 10/01/2025 1:45 PM EST Office Visit [facility]. [address] [facility] 204 [place] [address] Luke Quinn MD Essential (primary) hypertension from Last 3 Months Immunizations Immunization [...] Sign Reading Time Taken Comments Blood Pressure 112/64 10/01/2025 1:25 PM EST Pulse 69 10/01/2025 1:25 PM EST Temperature - - Respiratory Rate - - Oxygen Saturation 99% 10/01/2025 1:25 PM EST Inhaled Oxygen Concentration - - Weight 69.9 kg (154 lb) 10/01/2025 1:25 PM EST Height 149.9 cm (4' 11 ) 11/26/2021 2:42 PM EST Body Mass Index 31.1 11/26/2021 2:42 PM EST Plan of Treatment Upcoming Encounters Date Type Department Care Team (Late st Contact Info) Description 09/30/2026 1:30 PM EST Office Visit [facility] [address] [address] Luke Quinn MD [address] [address] Health Maintenance Due Date Last Done Comments Diabetes: Ophthalmology Exam 12/17/2024 Diabetes: Pedal Pulse Checked 12/17/2024 Diabetes: Sensory Foot Exam 12/17/2024 Diabetes: Visual Foot Exam 12/17/2024 Diabetes: Hemoglobin A1C 12/23/2025 025, 06/24/2025, 09/25/2024, Additional history exists Pneumococcal Vaccine: 50+ Years Completed 10/31/2023 Influenza Vaccine Completed 09/03/2025, , 07/22/2022, Additional history exists Hepatitis B Vaccine Aged Out No longe r eligible based on patient's age to complete this topic Procedures Procedure Name Priority Date/Time Associated Diagnosis Comments PTH, INTACT Routine 09/24/2025 12:55 PM EST FERRITIN Routine 09/24/2025 12:55 PM EST MAGNESIUM Routine 09/24/2025 12:55 PM EST URIC ACID Routine 09/24/2025 12:55 PM EST VITAMIN D 25 HYDROXY Routine 09/24/2025 12:55 PM EST HEMOGLOBIN A1C Routine 09/24/2025 12:55 PM EST URINE ALBUMIN / CREATININE RATIO Routine 09/24/2025 12:55 PM EST PROTEIN / CREATININE RATIO, URINE Routine 09/24/2025 12:55 PM EST IRON PANEL (FE, TIBC, TSAT) Routine 09/24/2025 12:55 PM EST RENAL FUNCTION PANEL Routine 09/24/2025 12:55 PM EST URINALYSIS Routine 09/24/2025 12:55 PM EST CBC AND DIFFERENTIAL Routine 09/24/2025 12:55 PM EST MICROSCOPIC EXAMINATION - DO NOT USE Routine 09/24/2025 12:55 PM EST from Last 3 Months Results * Microscopic Examination (09/24/2025 12:55 PM EST) WBC, Urine None seen 0 - 5 /hpf [facility] RBC, Urine None seen 0 - 2 /hpf [facility] Squamous Epithelial, Urine 0-10 0 - 10 /hpf [facility] Casts None seen None seen /lpf [facility] Bacteria, Urine None seen None seen/Few [facility] 09/24/2025 12:5 5 PM EST 09/24/2025 us Luke Quinn MD LAB MICROBIOLOGY - NERAL ORDERABLES Final Result [facility] [address] [place] [address] * Iron Panel (Fe, TIBC, TSAT) (09/24/2025 12:55 PM EST) TIBC 313 250 - 450 ug/dL [facility] UIBC 248 118 - 369 ug/dL [facility] Iron 65 27 - 139 ug/dL [facility] Iron Saturation (TSat) 21 15 - 55 % [facility] 09/24/2025 12:5 5 PM EST 09/24/2025 Luke Quinn MD LAB BLOOD ORDERABLES Final Result [facility] [place] [address], [address] [place] [address] * Protein, Total, Random Urine w/Creatinine (Protein/Creat Ratio) (09/24/2025 12:55 PM EST) Creatinine, Ur 45.2 Not Estab. mg/dL [facility] Protein, Ur 4.9 Not Estab. mg/dL [facility] Urine Protein/Creatin ine Ratio 108 0 - 200 mg/g creat [facility] 09/24/2025 12:5 5 PM EST 09/24/2025 Luke Quinn MD LAB URINE ORDERABLES Final Result [facility] [address] [place] [address] * Urine Albumin / Creatinine Ratio (09/24/2025 12:55 PM EST) Albumin, Urine <3.0 Not Estab. ug/mL [facility] Albumin/Creatin ine Ratio <7 0 - 29 mg/g creat [facility] Comment: Normal: 0 - 29 Moderately increased: 30 - 300 Severely increased: >300 09/24/2025 12:5 5 PM EST 09/24/2025 Luke Quinn MD LAB URINE ORDERABLES Final Result [facility] [address] [place] [address] * (ABNORMAL) Vitamin D 25 Hydroxy (09/24/2025 12:55 PM EST) Vitamin D, 25-OH, Total 24.2(L) 30.0 - 100.0 ng/mL [facility] Comment: Vitamin D deficiency has been defined by the [place] of Medicine and an Endocrine Society practice guideline as a level of serum 25-OH vitamin D less than 20 ng/mL (1,2). The Endocrine Society went on to further define vitamin D insufficiency as a level between 21 and 29 ng/mL (2). 1. IOM ([place] of Medicine). 2010. Dietary reference intakes for calcium and D. [place]: The National Academies Press. 2. Edith MF, Tania DINERO, Amando PAREDES, et al. Evaluation, treatment, and prevention of vitamin D deficiency: an Endocrine Society clinical practice guideline. JCEM. 2010; 96(7):1911-30. 09/24/2025 12:5 5 PM EST 09/24/2025 Luke Quinn MD LAB BLOOD ORDERABLES Final Result [facility] [address] [place] [address] * (ABNORMAL) Urinalysis (09/24/2025 12:55 PM EST) Specific [place], Urine 1.012 1.005 - 1.030 [facility] pH Urine 5.5 5.0 - 7.5 [facility] Color, Urine Yellow Yellow [facility] Appearance Urine Clear Clear [facility] WBC Esterase Urine Trace(A) Negative [facility] Protein, Ur Negative Negative/Tra ce [facility] [phone] Glucose, Ur Negative Negative [facility] [phone] Ketones, Urine Negative Negative [facility] [phone] Blood Urine Negative Negative [facility] Bilirubin Urine Negative Negative [facility] [phone] Urobilinogen Urine 0.2 0.2 - 1.0 mg/dL [facility] Nitrite, Urine Negative Negative [facility] Microscopic Examination See below: [facility] Comment:Microscopic was binh cated and was performed. 09/24/2025 12:5 5 PM EST 09/24/2025 us Luke Quinn MD LAB URINE ORDERABLES Final Result [facility] [address] [place] [address] * (ABNORMAL) CBC and Differential (09/24/2025 12:55 PM EST) WBC 7.9 3.4 - 10.8 x10E3/uL [facility] RBC 3.82 3.77 - 5.28 x10E6/uL [facility] Hemoglobin 11.1 11.1 - 15.9 g/dL [facility] Hematocrit 34.5 34.0 - 46.6 % [facility] MCV 90 79 - 97 fL [facility] MCH 29.1 26.6 - 33.0 pg [facility] MCHC 32.2 31.5 - 35.7 g/dL [facility] RDW 19.3(H) 11.7 - 15.4 % [facility] Platelets 175 150 - 450 x10E3/uL [facility] Neutrophils Relative 51 Not Estab. % [facility] Lymphocytes Relative 22 Not Estab. % [facility] Monocytes 8 Not Estab. % [facility] Eosinophils Relative 18 Not Estab. % [facility] Basophils Relative 1 Not Estab. % [facility] Neutrophils Absolute 4.1 1.4 - 7.0 x10E3/uL [facility] Lymphocytes Absolute 1.7 0.7 - 3.1 x10E3/uL [facility] Monocytes Absolute 0.6 0.1 - 0.9 x10E3/uL [facility] Eosinophils Absolute 1.4(H) 0.0 - 0.4 x10E3/uL [facility] Basophils Absolute 0.1 0.0 - 0.2 x10E3/uL [facility] Immature Granulocytes 0 Not Estab. % [facility] Immature Grans (Absolute) 0.0 0.0 - 0.1 x10E3/uL [facility] 09/24/2025 12:5 5 PM EST 09/24/2025 us Luke Quinn MD LAB BLOOD ORDERABLES Final Result [facility] [address] [place] [address] * Uric Acid (09/24/2025 12:55 PM EST) Uric Acid 5.2 3.1 - 7.9 mg/dL [facility] Comment:Therapeutic target f or gout patients: <6.0 09/24/2025 12:5 5 PM EST 09/24/2025 Luke Quinn MD LAB BLOOD ORDERABLES Final Result Performing Organization Address City/[facility]/ZIP Co de Phone Number [facility] [place] [address], [address] [place] [address] * PTH, Intact (09/24/2025 12:55 PM EST) PTH 44 15 - 65 pg/mL [facility] 09/24/2025 12:5 5 PM EST 09/24/2025 Luke Quinn MD LAB BLOOD ORDERABLES Final Result Performing Organization Address City/[facility]/ZIP Co de Phone Number [facility] [place] [address], [address] [place] [address] * Magnesium (09/24/2025 12:55 PM EST) Magnesium 2.2 1.6 - 2.3 mg/dL [facility] 09/24/2025 12:5 5 PM EST 09/24/2025 Luke Quinn MD LAB BLOOD ORDERABLES Final Result [facility] [address], [address] [place] [address] * Hemoglobin A1c (09/24/2025 12:55 PM EST) Pathologist [facility] Hemoglobin A1C 5.4 4.8 - 5.6 % [facility] Comment: Prediabetes: 5.7 - 6.4 Diabetes: >6.4 Glycemic control for adults with diabetes: <7.0 09/24/2025 12:5 5 PM EST 09/24/2025 us Luke Quinn MD LAB BLOOD ORDERABLES Final Result [facility] [address] [place] [address] * (ABNORMAL) Ferritin (09/24/2025 12:55 PM EST) [facility] Ferritin 174(H) 15 - 150 ng/mL [facility] [place] 09/24/2025 12:5 5 PM EST 09/24/2025 Luke Quinn MD LAB BLOOD ORDERABLES Final Result [facility] [place] [address], [address] [place] [address] * (ABNORMAL) Renal Function Panel (09/24/2025 12:55 PM EST) Pathologist [facility] Glucose 71 70 - 99 mg/dL [facility] [place] BUN 19 8 - 27 mg/dL [facility] [place] Creatinine 1.11(H) 0.57 - 1.00 mg/dL [facility] [place] eGFR CKD-EPI CR 2020 50(L) >59 mL/min/1.7 3 [facility] [place] BUN/Creatinine Ratio 17 12 - 28 [facility] [place] Sodium 138 134 - 144 mmol/L [facility] [place] Potassium 4.3 3.5 - 5.2 mmol/L [facility] [place] Chloride 103 96 - 106 mmol/L [facility] [place] Bicarbonate (CO2) 23 20 - 29 mmol/L [facility] [place] Calcium 9.0 8.7 - 10.3 mg/dL [facility] [place] Phosphorus 3.3 3.0 - 4.3 mg/dL [facility] [place] Albumin 4.1 3.7 - 4.7 g/dL [facility] 09/24/2025 12:5 5 PM EST 09/24/2025 us Luke Quinn MD LAB BLOOD ORDERABLES Final Result [facility] [place] [address] [place] [address] from Last 3 Months Insurance [facility] Dual Elig Dc Dual Elig Dc Medicaid [place] Care Teams Cheesemaker Relationship Specialty Start Date End Date Jeni Garcia MD [address] [place] [phone] PCP - General Internal Medicine 08/06/21
--- OUTSIDE RECORDS SUMMARY | 2025-10-07 15:49 | XMS_ITS | Encounter Summary ---
Author Organization [employer] Address [address] [place] [address] [place], [place] [address] Care Team Providers Care Services Clerk Name Role Phone Jeni Garcia MD Primary Care Provider + Encounter Details Date Type Department Care Team (Late st Contact Info) Description 09/27/2022 [facility] Health Information Management [address] [place] [address] [phone] Jeni Garcia MD [address] [place] [address] [phone] Social History Tobacco Use Types Packs/Day Years [...] Description 10/30/2025 10:30 AM EST Office Visit [address] [address] Jeni Garcia MD [address] [place] [address] [phone] 11/01/2025 9:00 AM EST Medication Management [address] [address] Margarita Baumann, PharmD [address] [place] [phone] 12/05/2025 11:15 AM EST Office Visit [facility] MEDICINE [address] [place] [address] [phone] Jeni Garcia MD [address] [place] [address] [phone] documented as of this encounter Visit Diagnoses Not on filedocumented in this encounter Care Teams Services Clerk Relationship Specialty Start Date End Date Jeni Garcia MD [address] [place] [address] [phone] PCP - General Family Medicine 12/16/15 documented as of this encounter
--- OUTSIDE RECORDS SUMMARY | 2025-10-07 15:49 | XMS_ITS | Encounter Summary ---
Author Organization [facility] [address] Address [address] [address] Phone Care Team Providers Care Software Sales Executive Name Role Phone Jeni Garcia MD Primary Care Provider + [phone] Encounter Details Date Type Department Care Team (Late Contact Info) Description 10/02/2025 Orders Only [facility] [address] [address] Luke Quinn MD [address] [place] [phone] Hypertension Social History Tobacco Use Types Packs/Day Years [...] EST Office Visit [facility] [place] [phone] [address] Luke Quinn MD [address] [place] [phone] documented as of this encounter Procedures Procedure Name Priority Date/Time Associated Diagnosis Comments MICROSCOPIC EXAMINATION - DO NOT USE Routine 09/24/2025 12:55 PM EST IRON PANEL (FE, TIBC, TSAT) Routine 09/24/2025 12:55 PM EST PROTEIN / CREATININE RATIO, URINE Routine 09/24/2025 12:55 PM EST URINE ALBUMIN / CREATININE RATIO Routine 09/24/2025 12:55 PM EST VITAMIN D 25 HYDROXY Routine 09/24/2025 12:55 PM EST URINALYSIS Routine 09/24/2025 12:55 PM EST CBC AND DIFFERENTIAL Routine 09/24/2025 12:55 PM EST URIC ACID Routine 09/24/2025 12:55 PM EST PTH, INTACT Routine 09/24/2025 12:55 PM EST MAGNESIUM Routine 09/24/2025 12:55 PM EST HEMOGLOBIN A1C Routine 09/24/2025 12:55 PM EST FERRITIN Routine 09/24/2025 12:55 PM EST RENAL FUNCTION PANEL Routine 09/24/2025 12:55 PM EST documented in this encounter Results * Microscopic Examination (09/24/2025 12:55 PM EST) WBC, Urine None seen 0 - 5 /hpf [facility] RBC, Urine None seen 0 - 2 /hpf [facility] Squamous Epithelial, Urine 0-10 0 - 10 /hpf [facility] Casts None seen None seen /lpf [facility] Bacteria, Urine None seen None seen/Few [facility] 09/24/2025 12:5 5 PM EST 09/24/2025 us Luke Quinn MD LAB MICROBIOLOGY - GE NERAL ORDERABLES Final Result [facility] [address] [place] [address] * PTH, Intact (09/24/2025 12:55 PM EST) PTH 44 15 - 65 pg/mL [facility] [place] 09/24/2025 12:5 5 PM EST 09/24/2025 us Luke Quinn MD LAB BLOOD ORDERABLES Final Result Performing Organization Address City/[facility]/ZIP Co de Phone Number [facility] [place] [address], [address] [place] [address] * (ABNORMAL) Ferritin (09/24/2025 12:55 PM EST) Ferritin 174(H) 15 - 150 ng/mL [facility] [place] 09/24/2025 12:5 5 PM EST 09/24/2025 us Luke Quinn MD LAB BLOOD ORDERABLES Final Result [facility] [place] [address], [address] [place] [address] * Magnesium (09/24/2025 12:55 PM EST) Magnesium 2.2 1.6 - 2.3 mg/dL [facility] [place] 09/24/2025 12:5 5 PM EST 09/24/2025 Luke Quinn MD LAB BLOOD ORDERABLES Final Result [facility] [address], [address] [place] [address] * Uric Acid (09/24/2025 12:55 PM EST) Uric Acid 5.2 3.1 - 7.9 mg/dL [facility] [place] Comment:Therapeutic target f or gout patients: <6.0 09/24/2025 12:5 5 PM EST 09/24/2025 Luke Quinn MD LAB BLOOD ORDERABLES Final Result Performing Organization Address [facility] de Phone Number [facility] [address], [address] [place] [address] * (ABNORMAL) Vitamin D 25 Hydroxy (09/24/2025 12:55 PM EST) Vitamin D, 25-OH, Total 24.2(L) 30.0 - 100.0 ng/mL [facility] Comment: Vitamin D deficiency has been defined by the [place] of [employer] and an Endocrine Society practice guideline as a level of serum 25-OH vitamin D less than 20 ng/mL (1,2). The Endocrine Society went on to further define vitamin D insufficiency as a level between 21 and 29 ng/mL (2). 1. IOM ([place] of Medicine). 2010. Dietary reference intakes for calcium and D. [place]: The National Academies Press. 2. Edith HARDING, Tania DINERO, Amando PAREDES, et al. Evaluation, treatment, and prevention of vitamin D deficiency: an Endocrine Society clinical practice guideline. JCEM. 2010; 96(7):1911-30. 09/24/2025 12:5 5 PM EST 09/24/2025 us Luke Quinn MD LAB BLOOD ORDERABLES Final Result Performing Organization Address City/[facility]/ZIP Co de Phone Number [facility] [address] [place] [address] * Hemoglobin A1c (09/24/2025 12:55 PM EST) Hemoglobin A1C 5.4 4.8 - 5.6 % [facility] Comment: Prediabetes: 5.7 - 6.4 Diabetes: >6.4 Glycemic control for adults with diabetes: <7.0 09/24/2025 12:5 5 PM EST 09/24/2025 us Luke Quinn MD LAB BLOOD ORDERABLES Final Result Performing Organization Address [facility] Co de Phone Number [facility] [address] [place] [address] * Urine Albumin / Creatinine Ratio (09/24/2025 12:55 PM EST) Albumin, Urine <3.0 Not Estab. ug/mL [facility] Albumin/Creatin ine Ratio <7 0 - 29 mg/g creat [facility] Comment: Normal: 0 - 29 Moderately increased: 30 - 300 Severely increased: >300 09/24/2025 12:5 5 PM EST 09/24/2025 us Luke Quinn MD LAB URINE ORDERABLES Final Result Performing Organization Address City/[facility] Co de Phone Number [facility] [address] [place] [address] * Protein, Total, Random Urine w/Creatinine (Protein/Creat Ratio) (09/24/2025 12:55 PM EST) Creatinine, Ur 45.2 Not Estab. mg/dL [facility] Protein, Ur 4.9 Not Estab. mg/dL [facility] Urine Protein/Creatin ine Ratio 108 0 - 200 mg/g creat [facility] 09/24/2025 12:5 5 PM EST 09/24/2025 Luke Quinn MD LAB URINE ORDERABLES Final Result [facility] [address] [place] [address] * Iron Panel (Fe, TIBC, TSAT) (09/24/2025 12:55 PM EST) Pathologist [facility] TIBC 313 250 - 450 ug/dL [facility] [place] UIBC 248 118 - 369 ug/dL [facility] [place] Iron 65 27 - 139 ug/dL [facility] [place] Iron Saturation (TSat) 21 15 - 55 % [facility] [place] 09/24/2025 12:5 5 PM EST 09/24/2025 Luke Quinn MD LAB BLOOD ORDERABLES Final Result [facility] [place] [address], [address] [place] [address] * (ABNORMAL) Renal Function Panel (09/24/2025 12:55 PM EST) Pathologist [facility] Glucose 71 70 - 99 mg/dL [facility] [place] BUN 19 8 - 27 mg/dL [facility] [place] Creatinine 1.11(H) 0.57 - 1.00 mg/dL [facility] [place] eGFR CKD-EPI CR 2020 50(L) >59 mL/min/1.7 3 [facility] [place] BUN/Creatinine Ratio 17 12 - 28 [facility] [place] Sodium 138 134 - 144 mmol/L [facility] [place] Potassium 4.3 3.5 - 5.2 mmol/L [facility] [place] Chloride 103 96 - 106 mmol/L [facility] [place] Bicarbonate (CO2) 23 20 - 29 mmol/L [facility] [place] Calcium 9.0 8.7 - 10.3 mg/dL [facility] [place] Phosphorus 3.3 3.0 - 4.3 mg/dL [facility] [place] Albumin 4.1 3.7 - 4.7 g/dL [facility] [place] 09/24/2025 12:5 5 PM EST 09/24/2025 us Luke Quinn MD LAB BLOOD ORDERABLES Final Result [facility] [place] [address] [place] [address] * (ABNORMAL) Urinalysis (09/24/2025 12:55 PM EST) Specific [place], Urine 1.012 1.005 - 1.030 [facility] [phone] pH Urine 5.5 5.0 - 7.5 [facility] [phone] Color, Urine Yellow Yellow [facility] Appearance Urine Clear Clear [facility] WBC Esterase Urine Trace(A) Negative [facility] Protein, Ur Negative Negative/Tra ce [facility] [phone] Glucose, Ur Negative Negative [facility] Ketones, Urine Negative Negative [facility] Blood Urine Negative Negative [facility] [phone] Bilirubin Urine Negative Negative [facility] [place] Urobilinogen Urine 0.2 0.2 - 1.0 mg/dL [facility] [phone] Nitrite, Urine Negative Negative [facility] [place] Microscopic Examination See below: [facility] Comment:Microscopic was binh cated and was performed. 09/24/2025 12:5 5 PM EST 09/24/2025 us Luke Quinn MD LAB URINE ORDERABLES Final Result [facility] [address] [place] [address] * (ABNORMAL) CBC and Differential (09/24/2025 12:55 PM EST) WBC 7.9 3.4 - 10.8 x10E3/uL [facility] RBC 3.82 3.77 - 5.28 x10E6/uL [facility] Hemoglobin 11.1 11.1 - 15.9 g/dL [facility] Hematocrit 34.5 34.0 - 46.6 % [facility] MCV 90 79 - 97 fL [facility] MCH 29.1 26.6 - 33.0 pg [facility] MCHC 32.2 31.5 - 35.7 g/dL [facility] RDW 19.3(H) 11.7 - 15.4 % [facility] Platelets 175 150 - 450 x10E3/uL [facility] Neutrophils Relative 51 Not Estab. % [facility] Lymphocytes Relative 22 Not Estab. % [facility] Monocytes 8 Not Estab. % [facility] Eosinophils Relative 18 Not Estab. % [facility] Basophils Relative 1 Not Estab. % [facility] Neutrophils Absolute 4.1 1.4 - 7.0 x10E3/uL [facility] Lymphocytes Absolute 1.7 0.7 - 3.1 x10E3/uL [facility] Monocytes Absolute 0.6 0.1 - 0.9 x10E3/uL [facility] Eosinophils Absolute 1.4(H) 0.0 - 0.4 x10E3/uL [facility] Basophils Absolute 0.1 0.0 - 0.2 x10E3/uL [facility] Immature Granulocytes 0 Not Estab. % [facility] Immature Grans (Absolute) 0.0 0.0 - 0.1 x10E3/uL [facility] 09/24/2025 12:5 5 PM EST 09/24/2025 us Luke Quinn MD LAB BLOOD ORDERABLES Final Result [facility] [address] [place] [address] documented in this encounter Visit Diagnoses Diagnosis Hypertension documented in this encounter Care Teams Software Sales Executive Relationship Specialty Start Date End Date Jeni Garcia MD [address] [place] [phone] PCP - General Internal Medicine 08/06/21 documented as of this encounter
--- OUTSIDE RECORDS SUMMARY | 2025-10-07 15:49 | XMS_ITS | Encounter Summary ---
Author Organization [employer] Address [address] [facility] 7t [place] [address] Care Team Providers Care Recruiter Name Role Phone Jeni Garcia MD Primary Care Provider + Reason for Visit * Reason Comments Med Change Request Encounter Details Date Type Department Care Team ([facility] st Contact Info) Description 05/12/2025 Refill [facility] [address] [place], [place] [phone] Jeni Garcia MD [address] [place], [place] [phone] Social History Tobacco Use Types Packs/Day Years [...] 10/30/2025 10:30 AM EST Office Visit [address] [address] Jeni Garcia MD [address] [place] [address] 11/01/2025 9:00 AM EST Medication Management [address] [address] Margarita Baumann, PharmD [address] [place] [address] 12/05/2025 11:15 AM EST Office Visit [address] [address] Jeni Garcia MD [address] [place] [address] documented as of this encounter Visit Diagnoses Not on filedocumented in this encounter Additional Health Concerns Assessment Noted Time PHQ-9 Depression Total Score: 9 04/18/20 25 11:57 AM EDT documented as of this encounter Care Teams Recruiter Relationship Specialty Start Date End Date Jeni Garcia MD [address] [place] [address] PCP - General Family Medicine 12/16/15 documented as of this encounter
--- OUTSIDE RECORDS SUMMARY | 2025-10-07 15:49 | XMS_ITS | Encounter Summary ---
Author Organization [employer] Address [address] [place] [address] 7t [place] [address] Care Team Providers Care Research & Insights Executive Name Role Phone Jeni Garcia MD Primary Care Provider + Reason for Visit * Reason Onset Date Comments C pap request 01/26/2023 Encounter Details Date Type Department Care Team ([facility] st Contact Info) Description 01/26/[address] [facility] MEDICINE [address] [place], [place] [phone] Jeni Garcia MD [address] [place], [place] [phone] C pap request Social History Tobacco Use [...] on CPAP machine. Please contact pt at [phone] (Finnish speaker) * Telephone Encounter - Aleshia Stark [...] Description 10/30/2025 10:30 AM EST Office Visit [address] [address] Jeni Garcia MD [address] [place] [address] 11/01/2025 9:00 AM EST Medication Management [address] [address] Margarita Baumann, XinD [address] [place] [address] 12/05/2025 11:15 AM EST Office Visit [address] [phone] Jeni Garcia MD [address] [place], [place] [phone] documented as of this encounter Visit Diagnoses Not on filedocumented in this encounter Additional Health Concerns Assessment Noted Time PHQ-9 Depression Total Score: 0 11/16/19 23 10:53 AM EST documented as of this encounter Care Teams Research & Insights Executive Relationship Specialty Start Date End Date Jeni Garcia MD [address] [place] [address] PCP - General Family Medicine 12/16/15 documented as of this encounter
--- OUTSIDE RECORDS SUMMARY | 2025-10-07 15:49 | XMS_ITS | Encounter Summary ---
Author Organization [employer] Address [address] [place] [address] 7 [place] [address] Care Team Providers Care Linen Room Supervisor Name Role Phone Jeni Garcia MD Primary Care Provider + Reason for Visit * Reason Onset Date Comments Call Back Request 01/02/2025 Encounter Details Date Type Department Care Team ([facility] Contact Info) Description 01/02/2025 Telephone [facility] [address] [place], [place] [phone] Jeni Garcia MD [address] [place], [place] [phone] Call Back Request Social History Tobacco Use [...] visit because they dohave another appt prior. Welding Equipment Repairer Supervisor did inform them on 15 min mao period but forwarding message as anFYI. Please contact Daughter at [phone]. documented in this encounter Plan of Treatment Upcoming Encounters Date Type Department Care Team (Late st Contact Info) Description 10/30/2025 10:30 AM EST Office Visit [facility] [address] [place] [phone] Jeni Garcia MD [address] [place] [address] 11/01/2025 9:00 AM EST Medication Management [facility] [address] [place] [address] Margarita Baumann, XinD [address] [place] [address] 12/05/2025 11:15 AM EST Office Visit [facility] [address] [place] [address] Jeni Garcia MD [address] [place], [place] [phone] documented as of this encounter Visit Diagnoses Not on filedocumented in this encounter Additional Health Concerns Assessment Noted Time PHQ-9 Depression Total Score: 0 11/16/19 23 10:53 AM EST documented as of this encounter Care Teams Linen Room Supervisor Relationship Specialty Start Date End Date Jeni Garcia MD [address] [place] [phone] PCP - General Family Medicine 12/16/15 documented as of this encounter
== END 2025-10-07 13:32 | disposition home or self-care (01) ==
LOC: HO.HPS 12:42
PROVIDERS: PCP Internal Medicine; Visit Provider Hospitalist
DX: J01.90 Acute sinusitis, unspecified (principal); J30.9 Allergic rhinitis, unspecified; J98.11 Atelectasis; J45.30 Mild persistent asthma, uncomplicated; M79.89 Other specified soft tissue disorders; M54.6 Pain in thoracic spine; R13.10 Dysphagia, unspecified
CPT/HCPCS: 99214

== ENCOUNTER 2025-10-07 12:41 | Outpatient (REF) | payer OTHER, SELFPAY ==
[2025-10-07 15:16] LABS: Resp Syncy Virus RNA Qual PCR NEGATIVE (Negative); SARS COV2 PCR INHOUSE NEGATIVE (Negative)
--- OUTSIDE RECORDS SUMMARY | 2025-10-07 17:43 | XMS_ITS ---
Author Name Peggy Mix NP Address [address] [place] [address] Phone [phone] [facility] Care Team Providers [place] Signal Officer Name Role Phone Dominguez Peggy Unavailable [phone] [facility] Unavailable Jeni Garcia Unavailable [phone] Unavailable Unavailable [phone] Unavailable Unavailable [phone] Unavailable Unavailable [phone] Reason for Referral Not Available Allergies, adverse [...] BY MOUTH THREE TIMES A DAY 2024-08-08 2025-06-15 Carvedilol 6.25 mg Tab TAKE 1 TABLET BY MOUTH WITH BREAKFAST AND 1 WITH EVENING MEAL 2024-01-02 No Data Available VITAMIN D3 5,000 UNIT SOFTGEL TAKE 1 CAP FORD BY MOUTH EVERY TUESDAY AND Tuesday2024-10-02 No Data Available Atorvastatin Calcium 40 mg Tab take 1 ta blet by mouth at bedtime 2024-10-31 No Data Available Pantoprazole Sodium 40 [...] No Data Available 2025-05-30 No Data Available Fluticasone Propionate 50 MCG/ACT Suspension Nasal SHAKE LIQUID AND USE 1 SPRAY IN EACH NOSTRIL DAILY PRN allergy symptoms 2025-06-13 No Data Available Ferrous Sulfate 325 (65 Fe) MG Tab delayed rel TAKE 1 TABLET BY MOUTH EVERY DAY 2025-06-14 No Data Available Lidocaine 5 % Patch 1 patch topically to affected area daily remove after 12 hours PRN Pain 2025-06-15 No Data Available Olmesartan Medoxomil 20 mg Tab 1 tablet orally daily 2 No Data Available Problem List Problem Status Onset Date Resolved Date Synopsis Glaucoma Active 2022-11-05 N/A Adhere to Medi cations. You may need to take a variety of eyedrops throughout the day to manage your glaucoma. Maintain a schedule to take the proper dosage on time.01/17/2025 sees film washer yearly Cataracts, bilateral Active 2022-11-05 N/A 2024 [...] techniques, and weight loss. 01/17/2025 patient sees senior sustainability consultant every 3-6 months Rheumatoid polyneuropathy wi th [...] effect. 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 GERD (gastroesophageal reflu x disease) Active 2025-01-17 N/A Rx: famotidine o nly, reports PPI was d[facility]'d [facility]/28/25 for abd pain /gi bleedMember had a CT and EGD with biopsy. CTA and EGD were normal, still waiting on biopsy results. Also had a colonoscopy done that was also negative.-Colonoscopy with biopsy during stay reports biopsy negative. f/u with GI -Dr. Jain Hypothyroid Active 2025-01-17 N/A Rx: levothyro xine- [...] compliance or modifications and exercise as tolerated CKD (chronic kidney disease) stage 3, GFR [...] the heart. avoid sitting for long periods. Other problems related to medical facilities and other health care Active 2025-01-17 N/A ABDOMINAL FRACISCO N CONTINGENCY PLANLast updated: 06/10/25Member to call for the following symptoms: Abdominal pain/ Nausea/ VomitingPlanned intervention: Advise to avoid eating for 24 hours for bowel rest/ Increase intake of water / Two prunes or a glass of prune or apple juice / Senna or Dulcolax two tabs po / Famotidine 40mg daily/ Phenergan 25mg PO q6h as neededFALL CONTINGENCY PLANMember to call for the following symptoms: BP <110/70 / Fall / WeaknessPlanned intervention: Encourage extra fluid intake / Assess for change in mental status and provide reassurance if none (patient's baseline is alert and oriented to person, place, time, situation) Goals of care, counseling/discussion Active 2025-03-22 N/A [...] MiraLAX, Senna-S or Dulcolax, Dulcolax suppository. Contact [facility] 09/05 for any new, worsening or continued symptoms of increased abdominal pain. Encounter for other specifie d aftercare Active 2025-06-10 N/A Hospital name: [facility] Hospital admission date: 05/28/2025 Hospital discharge date: 05/30/2025 Discharge diagnosis: GI bleed -Colonoscopy with biopsy during stay reports biopsy negative. f/u with Dr. Palacios GI Unsteady gait when walking Active 2025-06-21 N/A N/A Fall, subsequent encounter Active 2025-06-21 N/A [facility]: [facility] discharge date: 06/14/2025Discharge diagnosis: Mechanical fall, no injury, see PHV note Encounters Encounters Type Facility Date of Service Diagnosis/Co mplaint New patient,40-59min; chronic exacerbation, 2 stable chronic or 1 acute illness add add modifier 95 for video (do not use for phone, instead use [id number]) [facility] Rheumatoid polyneurop w rheu matoid arthritis of unsp siteAtherosclerosis of renal arteryAthscl washoe arteries of extrm w intrmt nilesh, bi legsPersonal history of urinary calculi New patient,40-59min; chronic exacerbation, 2 stable chronic or 1 acute illness add add modifier 95 for video (do not use for phone, instead use [id number]) [facility] New patient,40-59min; chronic exacerbation, 2 stable chronic or 1 acute illness add add modifier 95 for video (do not use for phone, instead use 29657-92) [facility] ([place] New patient,40-59min; chronic exacerbation, 2 stable chronic or 1 acute illness add add modifier 95 for video (do not use for phone, instead use 81718-45) [facility] New patient,40-59min; chronic exacerbation, 2 stable chronic or 1 acute illness add add modifier 95 for video (do not use for phone, instead use 95754-99) [facility] New patient,40-59min; chronic exacerbation, 2 stable chronic or 1 acute illness add add modifier 95 for video (do not use for phone, instead use 63486-45) [facility] No Data Available [facility]20[place] Primary osteoarthritis, left elbowPersonal history of urinary calculi No Data Available [facility]20[place] No Data Available [facility]20[place] No Data Available [facility]2023 Shortness of breathCough, unspecified Estab. patient 20-29min; 1 stable chronic or 2 minor; add add modifier 95 for video, modifier 93 for phone [facility]2023 Rheumatoid polyneurop w rheu matoid arthritis of uns siteAtherosclerosis of renal arteryAthscl washoe arteries of extrm w intrmt nilesh, bi legsPersonal history of urinary calculiAcquired absence of other specified parts of digestive tractUnspecified asthma, uncomplicatedUnspecified glaucomaUnspecified cataractImmunodeficiency due to drugsOther long winder tender (current) drug therapyChronic obstructive pulmonary disease, unspecifiedObesity, unspecifiedBody mass index (BMI) 35.0-35.9, adultPrimary osteoarthritis, left elbowShortness of breathCough, unspecified Estab. patient 20-29min; 1 stable chronic or 2 minor; add add modifier 95 for video, modifier 93 for phone [facility] Estab. patient 20-29min; 1 stable chronic or 2 minor; add add modifier 95 for video, modifier 93 for phone [facility] Estab. patient 20-29min; 1 stable chronic or 2 minor; add add modifier 95 for video, modifier 93 for phone [facility] Estab. patient 20-29min; 1 stable chronic or 2 minor; add add modifier 95 for video, modifier 93 for phone [facility] Estab. patient 20-29min; 1 stable chronic or 2 minor; add add modifier 95 for video, modifier 93 for phone [facility] No Data Available [facility]2023 Chronic obstructive pulmonar y disease, unspecifiedRheumatoid polyneurop w rheumatoid arthritis of [facility] siteAtherosclerosis of renal arteryAthscl washoe arteries of extrm w intrmt nilesh, bi legsImmunodeficiency due to drugsPersonal history of urinary calculiAcquired absence of other specified parts of digestive tractUnspecified asthma, uncomplicatedUnspecified glaucomaUnspecified cataractOther long winder tender (current) drug therapyObesity, unspecifiedBody mass index (bmi) 34.0-34.9, adultPrimary osteoarthritis, left elbowShortness of breathCough, unspecifiedCellulitis, unspecified No Data Available [facility]2023 No Data Available [facility] No Data Available [facility]20[place] RN, CN or CP time with patient by phone; use with 1111F, BP, A1c or other CPTII codes [facility] ([place] 09/26/2023 Encounter for other specifie d aftercare RN, CN or CP time with patient by phone; use with 1111F, BP, A1c or other CPTII codes [facility] 09/[place]/20[place] Estab. patient 30-39min; chronic exacerbation, 2 stable chronic or 1 acute illness add add modifier 95 for video, (do not use for phone, instead use 85061-48) [facility]2023 Rheumatoid polyneurop w rheu matoid arthritis of unsp siteAtherosclerosis of renal arteryAthscl washoe arteries of extrm w intrmt nilesh, bi legsUnspecified glaucomaUnspecified cataractImmunodeficiency due to drugsOther long winder tender (current) drug therapyChronic obstructive pulmonary disease, unspecifiedObesity, unspecifiedPrimary osteoarthritis, left elbowOther problems related to medical facilities and other health careAthscl heart disease of washoe cor art w unstable ang pctrsPeripheral vascular disease, unspecifiedDermatitis, unspecifiedType 2 diabetes mellitus with other specified complicationMixed hyperlipidemia Estab. patient 30-39min; chronic exacerbation, 2 stable chronic or 1 acute illness add add modifier 95 for video, (do not use for phone, instead use 91016-65) [facility] Estab. patient 30-39min; chronic exacerbation, 2 stable chronic or 1 acute illness add add modifier 95 for video, (do not use for phone, instead use [id number]) [facility] Estab. patient 30-39min; chronic exacerbation, 2 stable chronic or 1 acute illness add add modifier 95 for video, (do not use for phone, instead use 83267-33) [facility] Estab. patient 30-39min; chronic exacerbation, 2 stable chronic or 1 acute illness add add modifier 95 for video, (do not use for phone, instead use 28975-06) [facility] Estab. patient 30-39min; chronic exacerbation, 2 stable chronic or 1 acute illness add add modifier 95 for video, (do not use for phone, instead use 06558-65) [facility] Estab. patient 30-39min; chronic exacerbation, 2 stable chronic or 1 acute illness add add modifier 95 for video, (do not use for phone, instead use 87288-27) [facility] Estab. patient 30-39min; chronic exacerbation, 2 stable chronic or 1 acute illness add add modifier 95 for video, (do not use for phone, instead use 66472-61) [facility] Estab. patient 30-39min; chronic exacerbation, 2 stable chronic or 1 acute illness add add modifier 95 for video, (do not use for phone, instead use 00728-71) [facility] Estab. patient 30-39min; chronic exacerbation, 2 stable chronic or 1 acute illness add add modifier 95 for video, (do not use for phone, instead use 47405-96) [facility] Estab. patient 30-39min; chronic exacerbation, 2 stable chronic or 1 acute illness add add modifier 95 for video, (do not use for phone, instead use 82303-05) [facility] Estab. patient 10-29min; 1 minor problem; add add modifier 95 for video, modifier 93 for phone [facility]17[place]2025 Type 2 diabetes mellitus wit h diabetic chronic kidney diseaseChronic kidney disease, stage 3 unspecifiedType 2 diabetes w diabetic peripheral angiopath w/o gangreneAthscl washoe arteries of extrm w intrmt nilesh, bi legsType 2 diabetes mellitus with other specified complicationMixed hyperlipidemiaRheumatoid polyneurop w rheumatoid arthritis of unsp siteAthscl heart disease of washoe cor art w unstable ang pctrsUnspecified atrial [...] modifier 93 for phone [facility] Estab. patient 10-29min; 1 minor problem; add add modifier 95 for video, modifier 93 for phone [facility]/17/20[place] Estab. patient 10-29min; 1 minor problem; add add modifier 95 for video, modifier 93 for phone [facility] 01/17/2025 Estab. patient 10-29min; 1 minor problem; add add modifier 95 for video, modifier 93 for phone [facility] [place] 01/17/2025 Estab. patient 10-29min; 1 minor problem; add add modifier 95 for video, modifier 93 for phone [facility] 01/17/20[place] Estab. patient 10-29min; 1 minor problem; add add modifier 95 for video, modifier 93 for phone [facility] 01/17/2025 Estab. patient 10-29min; 1 minor problem; add add modifier 95 for video, modifier 93 for phone [facility] 01/17/20[place] Estab. patient 10-29min; 1 minor problem; add add modifier 95 for video, modifier 93 for phone [facility]/17[place]20[place] Estab. patient 10-29min; 1 minor problem; add add modifier 95 for video, modifier 93 for [facility] Estab. patient 10-29min; 1 minor problem; add add modifier 95 for video, modifier 93 for phone [facility]/17[place] Estab. patient 10-29min; 1 minor problem; add add modifier 95 for video, modifier 93 for phone [facility] [place] [facility]/[place] Personal history of other me dical treatmentOther problems related to medical facilities and other health care Estab. patient 10-29min; 1 minor problem; add add modifier 95 for video, modifier 93 for phone [facility] [place] Estab. patient 10-29min; 1 minor problem; add add modifier 95 for video, modifier 93 for phone [facility] [place] Rheumatoid polyneurop w rheu matoid arthritis of [facility] siteImmunodeficiency, unspecifiedOther specified counseling Estab. patient 10-29min; 1 minor problem; add add modifier 95 for video, modifier 93 for phone [facility] [place]20[place] Constipation, unspecified RN, CN or CP time with patient by phone; use with 1111F, BP, A1c or other CPTII codes [facility] [place] 06[place]2025 Encounter for other specifie d aftercare RN, CN or CP time with patient by phone; use with 1111F, BP, A1c or other CPTII codes [facility] RN, CN or CP time with patient by phone; use with 1111F, BP, A1c or other CPTII codes [facility] [place]20[place] RN, CN or CP time with patient by phone; use with 1111F, BP, A1c or other CPTII codes [facility] [place]20[place] RN, CN or CP time with patient by phone; use with 1111F, BP, A1c or other CPTII codes [facility] [place]20[place] Estab. patient 10-29min; 1 minor problem; add add modifier 95 for video, modifier 93 for phone [facility] [place]2025 Gastro-esophageal reflux dis ease without esophagitisOther problems related to medical facilities and other health careEncounter for other specified aftercare Estab. patient 10-29min; 1 minor problem; add add modifier 95 for video, modifier 93 for phone [facility] [place] Estab. patient 10-29min; 1 minor problem; add add modifier 95 for video, modifier 93 for phone [facility] [place]/10[place]20[place] Estab. patient 10-29min; 1 minor problem; add add modifier 95 for video, modifier 93 for phone [facility] [place]20[place] Estab. patient 10-29min; 1 minor problem; add add modifier 95 for video, modifier 93 for phone [facility] [place] RN, CN or CP time with patient by phone; use with 1111F, BP, A1c or other CPTII codes [facility] [place] Encounter for other specifie d aftercare RN, CN or CP time with patient by phone; use with 1111F, BP, A1c or other CPTII codes [facility] [place] Estab. patient 10-29min; 1 minor problem; add add modifier 95 for video, modifier 93 for phone [facility] [place] Abrasion of right elbow, subsequent encounterContusion of unspecified knee, subsequent encounterOther chest painUnspecified fall, subsequent encounterOther problems related to medical facilities and other health care Estab. patient 10-29min; 1 minor problem; add add modifier 95 for video, modifier 93 for phone [facility] [place] Estab. patient 10-29min; 1 minor problem; add add modifier 95 for video, modifier 93 for phone [facility] [place]20[place] Estab. patient 10-29min; 1 minor problem; add add modifier 95 for video, modifier 93 for phone [facility] [place]20[place] Estab. patient 10-29min; 1 minor problem; add add modifier 95 for video, modifier 93 for phone [facility] [place] Vital Signs Date of Collection Vitals 2022-11-05 [...] - 174.0 mm[Hg]Pain Scale - 8.0 {score} 2025-06-10 12:01:00 Pain Scale - 7.0 {sc ore} 2025-06-21 10:08:02 BP Diastolic - 61.0 mm[Hg]BP Systolic - 167.0 mm[Hg]Pain Scale - 8.0 {score} Social History Social History Social History Observation Description Effec tive Time Current Smoking Status Former smoker 2025-09-17 2 Sex Female Gender identity Woman History of Procedures Procedures Service Procedure code Service date Servicing provider Phone# New patient,40-59min; chronic exacerbation, 2 stable chronic or 1 acute illness add add modifier 95 for video (do not use for phone, instead use [id number]) [id number] 2022-11-05 No Data Available No Data Availa [...] le No Data Available No Data Available [id number] 2022-12-02 No Data Available No Data Available Medication List Documented (1159F) 1159F 2022-12-02 No Data Available No Data Lucretia ilable Pain Assessment - Pain Documented on a Pain Scale (1125F) 1125F 2022-12-02 No Data Available No Data Lucretia ilable No Data Available [id number] 2023-01-25 No Data Available No Data Available Estab. patient 20-29min; 1 stable chronic or 2 minor; add add modifier 95 for video, modifier 93 for phone [id number] 2023-07-25 No Data Available No Data Availa [...] le No Data Available No Data Available [id number] 2023-09-30 No Data Available No Data Available [...] 1111F, BP, A1c or other CPTII codes 21895 2023-09-26 No Data Available No Data Avai lable Medications prescribed in hospital were reviewed and reconciled against what they were taking prior to admission during today's visit. (1111F) 1111F 2023-09-26 No Data Available No Data Availa ble Estab. patient 30-39min; chronic exacerbation, 2 stable chronic or 1 acute illness add add modifier 95 for video, (do not use for phone, instead use 13843-88) 03251 2023-11-25 No Data Available No Data Availa [...] 95 for video, modifier 93 for phone [id number] 2025-01-17 No Data Available No Data Availa [...] 95 for video, modifier 93 for phone 2025-01-30 No Data Available No Data Availa ble Medications prescribed in hospital were reviewed and reconciled against what they were taking prior to admission during today's visit. (1111F) 1111F 2025-01-30 No Data Available No Data Availa ble Estab. patient 10-29min; 1 minor problem; add add modifier 95 for video, modifier 93 for phone [id number] 2025-03-22 No Data Available No Data Availa ble Estab. patient 10-29min; 1 minor problem; add add modifier 95 for video, modifier 93 for phone [id number] 2025-04-14 No Data Available No Data Availa ble RN, CN or CP time with patient by phone; use with 1111F, BP, A1c or other CPTII codes 84312 2025-06-01 No Data Available No Data Avai lable Medications prescribed in hospital were reviewed and reconciled against what they were taking prior to admission during today's visit. (1111F) 1111F 2025-06-01 No Data Available No Data Availa ble Pain Assessment - Pain Documented on a Pain Scale (1125F) 1125F 2025-06-01 No Data Available No Data Lucretia ilable SBP 130-139 (3075F) 307F 2025-06-01 No Data Availabl e No Data Available DBP <80 (3078F) 3078F 2025-06-01 No Data Available No Data Available Estab. patient 10-29min; 1 minor problem; add add modifier 95 for video, modifier 93 for phone [id number] 2025-06-10 No Data Available No Data Availa ble Medications prescribed in hospital were reviewed and reconciled against what they were taking prior to admission during today's visit. (1111F) 1111F 2025-06-10 No Data Available No Data Availa ble Advance care planning discussed and documented advance care plan or surrogate decision-maker was documented in the medical record. (1123F) 1123F 2025-06-10 No Data Available No Data Availa ble Pain Assessment - Pain Documented on a Pain Scale (1125F) 112F 2025-06-10 No Data Available No Data Lucretia ilable Medication List Documented (1159F) 1159F 2025-06-10 No Data Available No Data Lucretia ilable RN, CN or CP time with patient by phone; use with 1111F, BP, A1c or other CPTII codes 44644 2025-06-15 No Data Available No Data Avai lable Medications prescribed in hospital were reviewed and reconciled against what they were taking prior to admission during today's visit. (1111F) 1110F 2025-06-15 No Data Available No Data Availa ble Estab. patient 10-29min; 1 minor problem; add add modifier 95 for video, modifier 93 for phone [id number] 2025-06-21 No Data Available No Data Availa ble Medications prescribed in hospital were reviewed and reconciled against what they were taking prior to admission during today's visit. (1111F) 1111F 2025-06-21 No Data Available No Data Availa ble Pain Assessment - Pain Documented on a Pain Scale (1125F) 2025-06-21 No Data Available No Data Lucretia ilable SBP >= 140 3077F 2025-06-21 No Data Available No Data Available DBP <80 (3078F) 3078F 2025-06-21 No Data Available No Data Available Functional [...] unspecified siteAtherosclerosis of renal artery, Atherosclerosis of washoe arteries of extremities with intermittent claudication, bilateral legsHx of renal calculi 2022-12-02 12:17:08 Arthritis of left up per armHx of renal calculi 2023-01-25 09:24:51 Follow up plan for kimberly barrow symptoms: F/U PCPShortness of breath with cough 2023-07-25 08:46:34 <Fully document all Diagnosis>Rheumatoid polyneuropathy with rheumatoid arthritis of unspecified siteAtherosclerosis of renal artery, Atherosclerosis of washoe arteries of extremities with intermittent claudication, bilateral legsHx of renal calculiHx of cholecystectomyAsthmaGlaucomaCataracts, bilateralImmunodeficiency due to drugsChronic obstructive pulmonary disease, unspecifiedObesity (BMI 30.0-34.9)Arthritis of left upper armHx of renal calculiShortness of breath with cough 2023-09-30 07:29:04 Rheumatoid polyneuro gregor with rheumatoid arthritis of unspecified siteAtherosclerosis of renal artery, Atherosclerosis of washoe arteries of extremities with intermittent claudication, bilateral legsHx of renal calculiHx of cholecystectomyAsthmaGlaucomaCataracts, bilateralImmunodeficiency due to drugsChronic obstructive pulmonary disease, unspecifiedObesity (BMI 30.0-34.9)Arthritis of left upper armHx of renal calculiShortness of breath with coughCellulitis 2023-11-25 11:48:09 Other problems relat ed to medical facilities and other health careRheumatoid polyneuropathy with rheumatoid arthritis of unspecified siteAtherosclerosis of renal artery, Atherosclerosis of washoe arteries of extremities with intermittent claudication, bilateral legsGlaucomaCataracts, bilateralImmunodeficiency due to drugsChronic obstructive pulmonary disease, unspecifiedObesity (BMI 30.0-34.9)Arthritis of left upper armOther problems related to medical facilities and other health careAtherosclerosis of renal artery, Atherosclerosis of [place]hoe arteries of extremities with intermittent claudication, bilateral legs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PVD (peripheral vascular disease)EczemaMixed hyperlipidemia due to type 2 diabetes mellitus 2025-01-17 08:37:23 Rheumatoid polyneuro gregor with rheumatoid arthritis of unspecified siteImmunocompromisedAtherosclerosis of renal artery, Atherosclerosis of [place]hoe arteries of extremities with intermittent claudication, bilateral [...] siteImmunocompromised 2025-04-14 15:07:06 Follow up plan for a cute symptoms: 04/17/25 at 2:15 with APPConstipation 2025-06-10 12:01:00 Other problems relat ed to medical facilities and other health careEncounter for other specified aftercareGERD (gastroesophageal reflux disease) 2025-06-21 10:08:02 Fall, subsequent enc ounterHospital [facility]: [facility]: [facility]25Hospital discharge date: 06/14/2025Discharge diagnosis: Mechanical fall, no injury, see PHV noteOther problems related to medical facilities and other health careABDOMINAL PAIN CONTINGENCY PLANLast updated: 06/10/25Member to call for the following symptoms: Abdominal pain/ Nausea/ VomitingPlanned intervention: Advise to avoid eating for 24 hours for bowel rest/ Increase intake of water / Two prunes or a glass of prune or apple juice / Senna or Dulcolax two tabs po / Famotidine 40mg daily/ Phenergan 25mg PO q6h as neededFALL CONTINGENCY PLANMember to call for the following symptoms: BP <110/70 / Fall / WeaknessPlanned intervention: Encourage extra fluid intake / Assess for change in mental status and provide reassurance if none (patient's baseline is alert and oriented to person, place, time, situation) Plan of Care Date of Service Plans [...] <80 (3078F)Continue to see PCP. [facility] any acute or disease education needs that may arise 09/05.Methotrexare, taking fewer (6) tabs than prescribed (8), concerned about AE .Advised to tlk to rheumatology about it.Not on a statin - will investigateEncouraged to lose weightEast high fiber foodActivity as toleratedRecently passed a kidney stone, 11/0308Enzfsuyt2/24/2022tableAdvair,Albuterol PRN,Montelukast.ophtho consult coing up in Januaryophtho consult [...] visit. (1111F)Continue to see PCP. Follow-up with [facility] as needed for any acute or disease education needs that may arise 09/05.Methotrexare, taking fewer (6) tabs than prescribed (8), concerned about AE .Advised to tlk to rheumatology about it.Not on a statin - will investigateEncouraged to lose weightEast high fiber foodActivity as toleratedRecently passed a kidney stone, 11/0324Tlthemlh8/24/2022tableAdvair,Albuterol PRN,Montelukast.ophtho consult coing up in Januaryophtho consult [...] joint pain increased Please remember to [facility]. Follow-up with Alicia as [...] smoking.keep skin hydrated triamcinolone PRN Eosinophil count [id number] 08/19/23not on any medication Advised to eat [...] take the proper dosage on time.01/17/2025 sees film washer yearly01/17/2025 no need for surgery yet , monitored yearlyRx: nitro, clopidogrel Choose heart-healthy foods, Aim for a healthy weight, Be physically activity, Manage stress, Quit smoking, and Get enough good-quality sleep.01/17/2025 patient had [place] while on vacation on a cruise earlier this year sees group leader semiconductor processing yearlyRx: gabapentin elevate and massage legsrecommend compression [...] techniques, and weight loss. 01/17/2025 patient sees senior sustainability consultant every 3-6 monthsRx: carvedilolMonitor BP routinely, low [...] will see her pcpWOUND CONTINGENCY PLANLast updated: 01/17/2025[facility] to call for the following [...] or disease education needs that may arise 09/05.[facility]. 01/19-01/20/25. Acute abdominal pain, gastritis. D/C home . No changes to medication; Patient feels wellWOUND CONTINGENCY PLANLast updated: 01/17/2025[facility] to call for the following symptoms: Fever/ HR >100 / Increased wound size / Wound bleeding/ Wound drainagePlanned intervention: Ensure appropriate offloading of wound/ Encourage increased fluid intake/ MRSA Suspected - Bactrim DS BID x7d/ Take Tylenol for pain or feverABDOMINAL PAIN CONTINGENCY PLANLast updated: 01/30/2025[facility] to call for the following [...] have quality of care.WOUND CONTINGENCY PLANLast updated: 01/17/2025[facility] to call for the following symptoms: Fever/ HR >100 / Increased wound size / Wound bleeding/ Wound drainagePlanned intervention: Ensure appropriate offloading of wound/ Encourage increased fluid intake/ MRSA Suspected - Bactrim DS BID x7d/ Take Tylenol for pain or feverABDOMINAL PAIN CONTINGENCY PLANLast updated: 01/30/2025[facility] to call for the following [...] for phoneContinue to see PCP. [facility] for any acute or disease education needs that may arise 09/05.04/14/25: Rx: Lactulose 10 GM/15ML Solution-30 ml ONCE DAILY NEEDED FOR CONSTIPATION. Advised to increase fluids and fiber intake (eat prunes or prune juice daily). Take OTC MiraLAX, Senna-S or Dulcolax, Dulcolax suppository. [facility] 09/05 for any new, worsening or continued symptoms of increased abdominal pain. 2025-06-10 12:01:00 Discharge medication s reconciled with current medication listAdvance care planning discussed and documented advance care plan or surrogate decision-maker was documented in the medical record. (1123F)Estab. patient 10-29min; 1 minor problem; add add modifier 95 for video, modifier 93 for phoneContinue to see PCP. [facility] as needed for any acute or disease education needs that may arise.ABDOMINAL PAIN CONTINGENCY PLANLast updated: 06/10/25[facility] to call for the following symptoms: Abdominal pain/ Nausea/ VomitingPlanned intervention: Advise to avoid eating for 24 hours for bowel rest/ Increase intake of water / Two prunes or a glass of prune or apple juice / Senna or Dulcolax two tabs po / Famotidine 40mg daily/ Phenergan 25mg PO q6h as neededHospital name: [facility]: 05[facility]28[facility]25 Hospital discharge date: 05/30/2025 Discharge diagnosis: GI bleed -Colonoscopy with biopsy during stay reports biopsy negative. f/u with Dr. Philip Harp: famotidine only, reports PPI was d/c'd by [facility] admit 05/28/25 for abd pain /gi bleedMember had a CT and EGD with biopsy. CTA and EGD were normal, still waiting on biopsy results. Also had a colonoscopy done that was also negative.-Colonoscopy with biopsy during stay reports biopsy negative. f/u with GI -Dr. Jain 2025-06-21 10:08:02 Discharge medication s reconciled with current medication listAdvance care planning discussed and documented advance care plan or surrogate decision-maker was documented in the medical record. (1123F)Estab. patient 10-29min; 1 minor problem; add add modifier 95 for video, modifier 93 for phoneSBP >= 140DBP <80 (3078F)Continue to see PCP. Follow-up with [facility] as needed for any acute or disease education needs that may arise. Goals Date Goal 2025-01-17 At least 50% of time spent counseling pt, discussing diagnosis, treatment plan, compliance, and coordinating followup care. Continue taking medications as directed and keep all follow up appointments with established PCP and Specialist Health Concerns Date Concern 2025-06-21 Patient/Guardian agr eed to visit via telehealth.Visit completed via:[ ] audio and video; [x] audio only 2025-06-21 Hospitalization Summ aryAdmit date: 06/11/25Discharge date: 06/14/25Reason for hospitalization: FallSummary of hospital course: Member reports she fell and reported to the ED to get checked out. Member states doctors found something on her head, was thought to be brain bleed but that was ruled out. 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 Member was discharged home to follow up outpatient. Current issues/current symptoms/outstanding follow-up needs: Member reports went to mall and fell on crack in ground while entering. Denies fx, bruises to knees, right elbow abrasion, right breast/chest discomfort. Pain is 7-8/10, constant, taking one acetaminophen 500mg, dtr applied lidocaine patch today. Denies use of ice or heat. Using cane, prior to fall always used cane. Since fall using walker. Denies cp, sob, dizziness. F/u with neuro for tumor found on scan in hospital. Denies headaches or visual changes. 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
== END 2025-10-07 12:42 | disposition home or self-care (01) ==
LOC: HO.LNP 12:41
PROVIDERS: PCP Internal Medicine; Visit Provider Hospitalist
DX: J45.30 Mild persistent asthma, uncomplicated (principal); J01.90 Acute sinusitis, unspecified; J30.9 Allergic rhinitis, unspecified; J98.11 Atelectasis; M79.89 Other specified soft tissue disorders; M54.6 Pain in thoracic spine; R13.10 Dysphagia, unspecified; B34.9 Viral infection, unspecified; R07.9 Chest pain, unspecified; Z03.818 Encounter for observation for suspected exposure to other biological agents ruled out; Z87.891 Personal history of nicotine dependence
CPT/HCPCS: 87637; 99212